=== PATIENT | male | born 1960 | race Caucasian/White ===

== ENCOUNTER 2019-12-03 14:32 | Emergency (ER) | payer OTHER, SELFPAY ==
[2019-12-03 15:13] VITALS: BP 132/88; PULSE 0; RESP 18; TEMP 37.2; BMI 29.0
--- NOTE | 2019-12-03 15:29 | ED_ITS ---
HPI - Asthma General Chief Complaint: Asthma Stated Complaint: asthma Time Seen by Provider: 12/03/19 15:29 Source: patient Mode of arrival: ambulatory Limitations: no limitations History of Present Illness MD complaint: shortness of breath and wheezing Onset (ago): day(s) (3) Severity: moderate Context: none known Associated symptoms: dry cough Asthma History: childhood onset Treatments Prior to Arrival: inhaled bronchodilator Related Data Current Asthma Therapy: inhaled bronchodilator and inhaled steroid Review of Systems Review of Systems: Constitutional : No Fever, No Chills ENT/Mouth : No sore throat, No Rhinorrhea, No Swallowing Difficulty Eyes: No Eye Pain, No Swelling, No Redness Cardiovascular : No Chest Pain, positive SOB, No Orthopnea, no Edema Respiratory : positive Cough, No Sputum, positive Wheezing, positive dyspnea Gastrointestinal : No Nausea, No Vomiting, No Diarrhea, No abdominal Pain, No Hematochezia, No Melena Genitourinary : No Dysuria, No Urinary Frequency, No Hematuria Musculoskeletal : No joint pain, No Myalgias Skin : No Skin Lesions, No rash Neuro : No Weakness, No Numbness, No Dizziness, No Headache Psych : No Anxiety/Panic, No Depression Heme/Lymph: No Bruising, No Lymphadenopathy Endocrine : No Polyuria, No Polydipsia All other systems reviewed and are negative [facility] Past Medical History Medical History Anxiety Asthma Chronic GERD Diabetes HTN (hypertension) Hyperlipidemia Social History Social History (Updated 12/03/19 @ 15:39 by Shelly Michele DO) Smoking Status: Former smoker Use of substances other than those prescribed or required for medical reasons: No Advance Directives: No Advance Directives Information Provided: Yes Physical Exam Vital Signs and I&O and Narrative: Vital Signs and I&O: Vital Signs Temp 99.0 F 12/03/19 15:13 Pulse 83 12/03/19 16:00 Resp 15 12/03/19 16:00 BP 132/88 12/03/19 16:00 Pulse Ox 96 12/03/19 16:00 Intake & Output 12/02/19 12/03/19 12/03/19 18:59 06:59 18:59 Weight 89.358 kg Body Mass Index 29.0 Appearance: Alert. Oriented X3. No acute distress. Eyes: Pupils equal, round and reactive to light. ENT: Pharynx normal. Neck: Normal inspection. Neck supple. CVS: Normal heart rate and rhythm. Pulses normal. Respiratory: No respiratory distress. Breath sounds diminished throughout, faint end exp wheezes Abdomen: Soft and nontender. Skin: Skin warm and dry. Normal skin color. Normal skin turgor. Extremities: No lower extremity edema. No lower extremity edema. Neuro: Oriented X 3. No motor deficit. No sensory deficit. Course Course Course Narrative: signed out to Dr. Melton pending workup MDM - Asthma MDM Narrative Medical decision making narrative: patient with a hx of asthma with c/o wheezing x 3 days, denies fevers, will need labs, EKG, CXR to r/o pneumonia, hour long 10mg neb ordered, IV steroids, dispo per results and findings Discharge Plan Discharge Clinical Impression: Asthma with acute exacerbation Qualifiers: Asthma severity: moderate Asthma persistence: unspecified Qualified Code(s): J45.901 - Unspecified asthma with (acute) exacerbation
--- NOTE | 2019-12-03 15:29 | ECG_ITS ---
Test Reason : SHORTNESS OF BREATH Blood Pressure : / mmHG Vent. Rate : 091 BPM Atrial Rate : 091 BPM P-R Int : 130 ms QRS Dur : 068 ms QT Int : 352 ms P-R-T Axes : 036 013 -10 degrees QTc Int : 432 ms Normal sinus rhythm Normal ECG When compared with ECG of 17-MAR-2017 15:01, Heart rate has decreased Referred By: Shelly Michele Electronically Signed By:MORRIS SANDOVAL MD
--- NOTE | 2019-12-03 15:30 | XR_ITS ---
EXAMINATION: XR CHEST CLINICAL INFORMATION: Dyspnea. COMPARISON: Chest x-ray 07/10/2018 TECHNIQUE: Frontal portable view of the chest was obtained. 3:36 PM FINDINGS: No significant abnormality is noted involving the heart, lungs, mediastinum, bony thorax or soft tissues. IMPRESSION: Unremarkable examination.
[2019-12-03] MEDS: Albuterol Sulfate (0.083%) 2.5 MG/3 ML VIAL.NEB 10 MG INHALE (15:50)
[2019-12-03 16:00] VITALS: BP 132/88; PULSE 83; RESP 15; O2SAT 96
[2019-12-03] MEDS: 0.9 % Sodium Chloride 1,000 ML 999 ML IVCONT (16:08)
[2019-12-03] MEDS: methylPREDNISolone Sod Succ/PF 125 MG/2 ML VIAL 60 MG IVPUSH (16:12)
[2019-12-03 16:16] LABS: MANUAL DIFF FLAG NO
[2019-12-03 16:19] LABS: Basophils Absolute Auto 0.1 X10*3/uL (0.0-0.2); Basophils Percent Auto 0.6 % (0-2); Eosinophils Percent Auto 9.9 % (0-4); Hematocrit 44.4 % (42-52); Imm Gran Abs Auto 0.03 X10*3/uL (0.00-0.03); Imm Gran Pct Auto 0.3 % (0.0-0.4); Lymphocytes Absolute Auto 2.3 X10*3/uL (1.2-4.9); Lymphocytes Percent Auto 22.2 % (20-40); Mean Corpuscular HGB Conc 31.5 g/dl (31.0-36.0); Mean Corpuscular Hemoglobin 29.5 pg (27.0-33.0); Mean Corpuscular Volume 93.5 fL (80-98); Mean Platelet Volume 9.4 fL (9.4-12.4); Monocytes Absolute Auto 0.9 X10*3/uL (0.1-1.2); Monocytes Percent Auto 8.6 % (2-11); Neutrophils Absolute Auto 5.9 X10*3/uL (2.0-8.3); Neutrophils Percent Auto 58.4 % (45-73); Platelet Count 250 X10*3/uL (160-400); Red Blood Count 4.75 X10*6/uL (4.60-5.80); White Blood Count 10.2 X10*3/uL (4.8-10.8)
[2019-12-03 16:35] LABS: Lactic Acid 1.8 mmol/L (0.5-2.0)
[2019-12-03 16:41] LABS: Alanine Aminotransferase 28 U/L (0-40); Albumin Level 4.6 g/dL (3.5-5.0); Alkaline Phosphatase 67 U/L (39-117); Anion Gap 12 (12-20); Aspartate Amino Transferase 23 U/L (5-37); Bilirubin Direct < 0.2 mg/dL (0.0-0.5); Bilirubin Total 0.3 mg/dL (0.0-1.0); Blood Urea Nitrogen 18 mg/dL (9-16); Calcium 9.5 mg/dL (8.4-10.2); Carbon Dioxide 27 mmol/L (22-29); Chloride 103 mmol/L (96-108); Estimated Glomerular Filt Rate > 60; Glucose Random 235 mg/dL (60-115); Lipase 50 U/L (8-78); Magnesium 1.8 mg/dL (1.6-2.6); Potassium 5.2 mmol/l (3.3-5.1); Sodium 137 mmol/L (135-145); Total Protein 8.3 g/dL (6.5-8.0)
[2019-12-03 16:47] LABS: B Type Natriuretic Peptide 19 pg/mL (<100); Troponin-I High Sensitivity < 3.5 ng/L (<3.5-35.0)
--- NOTE | 2019-12-03 16:49 | PC.NURSE ---
PATIENT LINE AND LAB'D AND MEDICATED ADMINISTERED UPON PATIENT ARRIVAL TO ED. MD EVALUATION COMPLETED.
--- NOTE | 2019-12-03 17:02 | ED_ITS ---
HPI - Asthma General Chief Complaint: Asthma Stated Complaint: asthma Time Seen by Provider: 12/03/19 15:29 Source: patient Mode of arrival: ambulatory Limitations: no limitations History of Present Illness Severity: moderate Context: none known Associated symptoms: dry cough Treatments Prior to Arrival: inhaled bronchodilator Related Data Current Asthma Therapy: inhaled bronchodilator and inhaled steroid Previous Rx's Medication Instructions Recorded albuterol sulfate 0.63 mg INHALATION QID PRN #75 ml 12/03/19 albuterol sulfate 1 inh INHALATION Q6H PRN #8.5 g 12/03/19 prednisone 50 mg PO DAILY 5 Days #5 tab 12/03/19 Allergies Allergy/AdvReac Type Severity Reaction Status Date / Time No Known Allergies Allergy Verified 12/03/19 17:25 PENDING SALE TO [facility] Past Medical History Medical History Anxiety Asthma Chronic GERD Diabetes HTN (hypertension) Hyperlipidemia Social History Social History (Updated 12/03/19 @ 15:39 by Shelly Michele DO) Alcohol intake: unknown Smoking Status: Former smoker Use of substances other than those prescribed or required for medical reasons: No Advance Directives: No Advance Directives Information Provided: Yes Physical Exam Vital Signs and I&O and Narrative: Vital Signs and I&O: Vital Signs Temp 99.0 F 12/03/19 15:13 Pulse 83 12/03/19 16:00 Resp 15 12/03/19 16:00 BP 132/88 12/03/19 16:00 Pulse Ox 96 12/03/19 16:00 Intake & Output 12/03/19 12/03/19 12/04/19 06:59 18:59 06:59 Intake Total 1000 / 1000 Balance 1000 / 1000 Weight 89.358 kg Intake: Intake, IV Amoun t 1000 / 1000 0.9 % Sodium C hloride 1,000 ml 1000 / 1000 @ 999 mls/hr I VCONT .Q1H1M RIK Rx#:[id number] Body Mass Index 29.0 Course Course Course Narrative: Report taking a patient seen by me. EKG normal sinus rhythm at [address] T segments normal p.r. segment. Patient feeling better at 1700 at 17:36 patient feeling much improved. Patient received nebulizer and steroids will discharge on same. re-examine of lungs with mild wheezing bilateral MDM - Asthma Lab Data Result diagrams: 12/03/19 15:59 12/03/19 15:58 Labs: Lab Results 12/03/19 12/03/19 12/03/19 Range/Units 15:58 15:58 15:58 WBC (4.8-10.8) X10*3/uL RBC (4.60-5.80) X10*6/uL Hgb (14.0-18.0) g/dl Hct (42-52) % MCV (80-98) fL MCH (27.0-33.0) pg MCHC (31.0-36.0) g/dl RDW (11.0-16.0) % Plt Count (160-400) X10*3/uL MPV (9.4-12.4) fL Immature Gran % (Auto) (0.0-0.4) % Neut % (Auto) (45-73) % Lymph % (Auto) (20-40) % [place] % (Auto) (2-11) % Eos % (Auto) (0-4) % Baso % (Auto) (0-2) % Lymph # (Auto) (1.2-4.9) X10*3/uL [place] # (Auto) (0.1-1.2) X10*3/uL Eos # (Auto) (0.0-0.4) X10*3/uL Baso # (Auto) (0.0-0.2) X10*3/uL Abs Immat Gran (auto) (0.00-0.03) X10*3/uL Absolute Neuts (auto) (2.0-8.3) X10*3/uL Absolute Nucleated RBC (0.0-0.012) X10*3/uL Nucleated RBC % (auto) (0.0-0.2) /100WBC Hold Blue Top Sodium 137 (135-145) mmol/L Potassium 5.2 H (3.3-5.1) mmol/l Chloride 103 (96-108) mmol/L Carbon Dioxide 27 (22-29) mmol/L Anion Gap 12 (12-20) BUN 18 H (9-16) mg/dL Creatinine 1.19 (0.5-1.4) mg/dL Estim Creat Clear Calc 72.0 Estimated GFR > 60 Random Glucose 235 H (60-115) mg/dL Lactic Acid 1.8 (0.5-2.0) mmol/L Calcium 9.5 (8.4-10.2) mg/dL Magnesium 1.8 (1.6-2.6) mg/dL Total Bilirubin 0.3 (0.0-1.0) mg/dL Direct Bilirubin < 0.2 (0.0-0.5) mg/dL AST 23 (5-37) U/L ALT 28 (0-40) U/L Alkaline Phosphatase 67 (39-117) U/L Troponin I High Sens < 3.5 (<3.5-35.0) ng/L B-Natriuretic Peptide 19 (<100) pg/mL Total Protein 8.3 H (6.5-8.0) g/dL Albumin 4.6 (3.5-5.0) g/dL Lipase 50 (8-78) U/L 12/03/19 12/03/19 Range/Units 15:59 15:59 WBC 10.2 (4.8-10.8) X10*3/uL RBC 4.75 (4.60-5.80) X10*6/uL Hgb 14.0 (14.0-18.0) g/dl Hct 44.4 (42-52) % MCV 93.5 (80-98) fL MCH 29.5 (27.0-33.0) pg MCHC 31.5 (31.0-36.0) g/dl RDW 14.0 (11.0-16.0) % Plt Count 250 (160-400) X10*3/uL MPV 9.4 (9.4-12.4) fL Immature Gran % (Auto) 0.3 (0.0-0.4) % Neut % (Auto) 58.4 (45-73) % Lymph % (Auto) 22.2 (20-40) % [place] % (Auto) 8.6 (2-11) % Eos % (Auto) 9.9 H (0-4) % Baso % (Auto) 0.6 (0-2) % Lymph # (Auto) 2.3 (1.2-4.9) X10*3/uL [place] # (Auto) 0.9 (0.1-1.2) X10*3/uL Eos # (Auto) 1.0 H (0.0-0.4) X10*3/uL Baso # (Auto) 0.1 (0.0-0.2) X10*3/uL Abs Immat Gran (auto) 0.03 (0.00-0.03) X10*3/uL Absolute Neuts (auto) 5.9 (2.0-8.3) X10*3/uL Absolute Nucleated RBC 0.000 (0.0-0.012) X10*3/uL Nucleated RBC % (auto) 0.0 (0.0-0.2) /100WBC Hold Blue Top SEE NOTE Sodium (135-145) mmol/L Potassium (3.3-5.1) mmol/l Chloride (96-108) mmol/L Carbon Dioxide (22-29) mmol/L Anion Gap (12-20) BUN (9-16) mg/dL Creatinine (0.5-1.4) mg/dL Estim Creat Clear Calc Estimated GFR Random Glucose (60-115) mg/dL Lactic Acid (0.5-2.0) mmol/L Calcium (8.4-10.2) mg/dL Magnesium (1.6-2.6) mg/dL Total Bilirubin (0.0-1.0) mg/dL Direct Bilirubin (0.0-0.5) mg/dL AST (5-37) U/L ALT (0-40) U/L Alkaline Phosphatase (39-117) U/L Troponin I High Sens (<3.5-35.0) ng/L B-Natriuretic Peptide (<100) pg/mL Total Protein (6.5-8.0) g/dL Albumin (3.5-5.0) g/dL Lipase (8-78) U/L Discharge Plan Discharge Clinical Impression: Asthma with acute exacerbation Qualifiers: Asthma severity: moderate Asthma persistence: unspecified Qualified Code(s): J45.901 - Unspecified asthma with (acute) exacerbation Patient Disposition: Home, Self-Care Instructions: Asthma (ED) Additional Instructions: Thank you for visiting the emergency department today. If your symptoms worsen or do not resolve completely please return to the emergency department immediately or call 911. if he have any questions please call your primary care physician Prescriptions: New albuterol sulfate 0.63 mg/3 mL solution for nebulization 0.63 mg inhalation QID PRN (Reason: shortness of breath or wheezing) Qty: 75 RF: 0 prednisone 50 mg tablet 50 mg PO DAILY 5 Days Qty: 5 RF: 0 albuterol sulfate 90 mcg/actuation HFA aerosol inhaler 1 inh inhalation Q6H PRN (Reason: shortness of breath or wheezing) Qty: 8.5 RF: 0 Referrals: Danis Laurent MD [Primary Care Provider] - 2 days Interventions: ED Discharge Assessment Last Done: 12/03/19 17:46 Discharge Date/Time: 12/03/19 17:55
--- NOTE | 2019-12-03 17:43 | PC.NURSE ---
pt ambulated with a steady gate Oygen stat never dropped below 93.
== END 2019-12-03 17:55 | disposition home or self-care (01) ==
PROVIDERS: Emergency Medicine; Emergency Provider Emergency Medicine; PCP Internal Medicine
DX: J45.41 Moderate persistent asthma with (acute) exacerbation (principal); E11.9 Type 2 diabetes mellitus without complications; I11.0 Hypertensive heart disease with heart failure; Z79.899 Other long term (current) drug therapy
CPT/HCPCS: 36415; 71045; 80048; 80076; 83605; 83690; 83735; 83880; 84484; 85025; 87040; 93005; 96361; 96374; 99284; J2930

== ENCOUNTER 2019-12-11 10:56 | Day surgery (SDC) | payer OTHER, SELFPAY ==
[2019-12-04 14:01] VITALS: BMI 30.5
--- NOTE | 2019-12-09 09:47 | HO.ANESPROP2 ---
Documented by User: Karie Dossney 12/09/19 09:55 HPI - Anesthesia Eval Consult details Narrative: 59yo M for Colonoscopy *Being worked up by speech therapy for dysphagia. Basic swallowing precautions. [facility] Past Medical History Medical History Anxiety Asthma Chronic GERD Depression Diabetes HTN (hypertension) Hyperlipidemia Surgical History Surgical History Hx of colonoscopy Hx of esophagogastroduodenoscopy Hx of hernia repair Hx of repair of rotator cuff Social History Social History Alcohol intake: unknown Smoking Status: Former smoker Years Smoked: 20 yrs ( quit 8 years ago) Smoked in Last 30 Days: No Second Hand Smoke Exposure: Yes Use of substances other than those prescribed or required for medical reasons: No Advance Directives Information Provided: No Meds Allergies Allergy/AdvReac Type Severity Reaction Status Date / Time No Known Allergies Allergy Verified 12/03/19 17:25 Home Medications Medication Instructions Recorded Confirmed Type aspirin 81 mg PO DAILY 12/04/19 12/04/19 History fluticasone propion-salmeterol 1 inh INHALATION BID 12/04/19 12/04/19 History [Advair Diskus] glipizide 10 mg PO DAILY 12/04/19 12/04/19 History loratadine 10 mg PO DAILY 12/04/19 12/04/19 History lorazepam 0.5 mg PO QID PRN 12/04/19 12/04/19 History metformin 1,000 mg PO BID 12/04/19 12/04/19 History metoclopramide HCl [Reglan] 10 mg PO TID 12/04/19 12/04/19 History montelukast 10 mg PO BEDTIME 12/04/19 12/04/19 History pioglitazone 30 mg PO DAILY 12/04/19 12/04/19 History sertraline 100 mg PO DAILY 12/04/19 12/04/19 History simvastatin 20 mg PO DAILY 12/04/19 12/04/19 History Exam Exam Date and Time: December 09, 2019 0947 Height,Weight and Vital Signs: Height 5 ft 9 in Weight 93.894 kg Pertinent Lab Results Pertinent Lab Results: Laboratory Tests 12/03/19 12/03/19 15:58 15:59 WBC 10.2 Hgb 14.0 Hct 44.4 Plt Count 250 Sodium 137 Potassium 5.2 H Chloride 103 Carbon Dioxide 27 BUN 18 H Creatinine 1.19 Documented by User: Molina Abreu MD 12/11/19 11:37 [facility] Past Medical History Medical History Anxiety Asthma Chronic GERD Depression Diabetes HTN (hypertension) Hyperlipidemia Surgical History Surgical History Hx of colonoscopy Hx of esophagogastroduodenoscopy Hx of hernia repair Hx of repair of rotator cuff Social History Social History Alcohol intake: unknown Smoking Status: Former smoker Years Smoked: 20 yrs ( quit 8 years ago) Smoked in Last 30 Days: No Second Hand Smoke Exposure: Yes Use of substances other than those prescribed or required for medical reasons: No Advance Directives Information Provided: No Meds Allergies Allergy/AdvReac Type Severity Reaction Status Date / Time No Known Allergies Allergy Verified 12/03/19 17:25 Home Medications Medication Instructions Recorded Confirmed Type aspirin 81 mg PO DAILY 12/04/19 12/04/19 History fluticasone propion-salmeterol 1 inh INHALATION BID 12/04/19 12/04/19 History [Advair Diskus] glipizide 10 mg PO DAILY 12/04/19 12/04/19 History loratadine 10 mg PO DAILY 12/04/19 12/04/19 History lorazepam 0.5 mg PO QID PRN 12/04/19 12/04/19 History metformin 1,000 mg PO BID 12/04/19 12/04/19 History metoclopramide HCl [Reglan] 10 mg PO TID 12/04/19 12/04/19 History montelukast 10 mg PO BEDTIME 12/04/19 12/04/19 History pioglitazone 30 mg PO DAILY 12/04/19 12/04/19 History sertraline 100 mg PO DAILY 12/04/19 12/04/19 History simvastatin 20 mg PO DAILY 12/04/19 12/04/19 History Exam Airway Mallampati Class: II TM Dist: >3cm Neck ROM: Full Denture: Upper Loose/Missing/Broken Teeth: No Heart: rrr, tachy Lungs: nl Other: ao Assessment and Plan Assessment Anesthesia Assessment: Anesthesia Plan Discussed and Chart Reviewed Final Anesthetic Review NPO: Yes ASA Class: III Final Preanesthetic Review: No Changes in Pt Med Stat, Meds/Allgs Chart Reviewed, Consent Obtained/Reviewed and Anes Risks/Benef Reviewed Patient Risk: Intermediate Procedure Risk: Low Anesthetic Plan Anesthetic Plan: MAC: Disposition: Standard PACU
[2019-12-11 11:22] VITALS: BP 113/79; PULSE 106; RESP 16; TEMP 36.6; O2SAT 97
[2019-12-11] MEDS: Lactated Ringers 1,000 ML 100 ML IVCONT (11:25)
[2019-12-11 11:27] VITALS: BMI 29.0
[2019-12-11 11:45] LABS: Glucose, Whole Blood 192 mg/dL (60-115)
--- NOTE | 2019-12-11 11:51 | MHC.SHP ---
Pre-Procedural Eval Section A The patient is an INPATIENT: No The History & Physical has been completed within 30 days and I have reviewed it.: No Section B Chief Complaint: Tubular Adenoma Details of Present Illness: COLON CANCER SCREENING; HX TUBULAR ADENOMA DIABETES, GERD, GASTROPARESIS,ASTHMA Relevant Family History (Specify if Yes): No Relevant Social History: None Present Medications: see Short Stay Collaborative assessment Medical History: Significant History (RECENT ER VISIT DUE TO EXACERBATION OF ASTHMA.) History of Previous Operations: Relevant previous surgery/procedure and date(s) (ARMANDO, POOR PREP, TUBULAR ADENOMA--6 MONTH REDO) Allergies: Allergies Allergy/AdvReac Type Severity Reaction Status Date / Time No Known Allergies Allergy Verified 12/03/19 17:25 Review of Systems Sugical H&P ROS: Negative: Constitution and Cardiovascular and Yes, Specify: Respiratory (RECENT FLARE), Gastrointestinal (BREAK THROUGH GERD SX--DURING THE DAY ? 2ND TO GASTROPARESIS) and Endocrine (DIABETES--POC-192) Exam Surgical H&P Exam: Normal: Heart, Normal: Lungs and Normal: Extremities and Significant Findings: Abdomen (CENTRAL OBESITY) Plan Diagnosis/Plan: Unchanged Patient has been examined and remains a candidate for the planned procedure--YES
[2019-12-11 12:44] VITALS: BP 116/86; PULSE 95; RESP 16; TEMP 36.1; O2SAT 96
[2019-12-11 12:56] VITALS: RESP 18; O2SAT 98
[2019-12-11 12:57] VITALS: BP 119/89; PULSE 93; RESP 20; O2SAT 93
[2019-12-11 13:12] VITALS: BP 118/88; PULSE 94; RESP 20; TEMP 36.5; O2SAT 96
--- NOTE | 2019-12-11 13:35 | HO.POSTANES ---
Post Anesthesia Evaluation Post Anesthesia Evaluation Vital Signs: Vital Signs Temp Pulse Resp BP Pulse Ox 12/11/19 13:12 97.7 F 94 20 118/88 96 12/11/19 12:57 93 20 119/89 93 12/11/19 12:56 18 98 12/11/19 12:44 97 F 95 16 116/86 96 12/11/19 11:22 97.8 F 106 H 16 113/79 97 Anesthesia: Monitored Mental Status: Awake Pain Control: Satisfactory Nausea/Vomiting: None Hydration: Adequate Anesthesia-Related Issues: No Anes. Related Issues
--- NOTE | 2019-12-12 07:55 | OP_ITS ---
SURGEON: Ysabel Ramos MD PREOPERATIVE DIAGNOSIS: History of tubular adenomas. POSTOPERATIVE DIAGNOSIS: History of tubular adenomas. PROCEDURE PERFORMED: Colonoscopy with excisional polypectomy. ESTIMATED BLOOD LOSS: Minimal blood loss. COMPLICATIONS: No complications. ANESTHESIA: Monitored. ANESTHESIOLOGIST: Beth Torres CRNA.Beth Torres CRNA. ASSISTANTS: No assistant in nursing. SPECIMENS: Specimens removed, ascending colon polyp. COMMUTER TRAIN OPERATOR: Dr. Ramos. FINDINGS: Digital rectal exam revealed prostate to be difficult to feel. Video colonoscope was introduced without difficulty. It was navigated into the rectosigmoid area slowly up through sigmoid, descending, transverse, ascending colon down into the cecum. Appendiceal orifice was seen. Ileocecal valve was well seen. Prep was slightly wet with residual bilious fluid, requiring flushing and suctioning sporadically through the colon, did identify a diminutive polyp in the ascending colon that was removed excisionally with the cold biopsy forceps. Continued withdrawal showed no additional lesions. Anorectal verge was clear. PLAN AND CURRENT RECOMMENDATIONS: Continued to be with a history of tubular adenoma 5-year asymptomatic screening. GRAFT OR IMPLANTS: No grafts or implants. CONDITION: Postprocedure, stable. Ysabel Ramos MD MEN/MODL / [id number]
== END 2019-12-11 13:49 | disposition home or self-care (01) ==
PROVIDERS: Internal Medicine Gastroenterology; PCP Internal Medicine; Visit Provider Internal Medicine
PROC: 0DJD8ZZ Inspection of Lower Intestinal Tract, Via Natural or Artificial Opening Endoscopic (ICD-10-PCS; CPT 45378; principal; 2019-12-11 12:00)
DX: Z12.11 Encounter for screening for malignant neoplasm of colon (principal); Z86.010 Personal history of colon polyps; D12.2 Benign neoplasm of ascending colon; K21.9 Gastro-esophageal reflux disease without esophagitis; I10 Essential (primary) hypertension; E11.9 Type 2 diabetes mellitus without complications; K31.84 Gastroparesis; R13.10 Dysphagia, unspecified; J45.909 Unspecified asthma, uncomplicated; Z79.84 Long term (current) use of oral hypoglycemic drugs; Z79.82 Long term (current) use of aspirin; Z79.899 Other long term (current) drug therapy; Z87.891 Personal history of nicotine dependence
CPT/HCPCS: 45380; 82947; 88305; J1610; J2250

== ENCOUNTER → 2019-12-24 12:45 | Outpatient (BNVA) | payer OTHER, SELFPAY | PROVIDERS: PCP Internal Medicine; Referring Provider Internal Medicine; Visit Provider Nurse Practitioner | DX: K31.84 Gastroparesis (principal); K21.9 Gastro-esophageal reflux disease without esophagitis; R14.0 Abdominal distension (gaseous); D12.6 Benign neoplasm of colon, unspecified; K58.1 Irritable bowel syndrome with constipation; R13.10 Dysphagia, unspecified | CPT/HCPCS: 99212 ==

== ENCOUNTER → 2020-02-04 13:08 | Outpatient (BNVA) | payer OTHER, SELFPAY | PROVIDERS: PCP Internal Medicine; Visit Provider Nurse Practitioner | DX: K31.84 Gastroparesis (principal); K58.1 Irritable bowel syndrome with constipation; D12.6 Benign neoplasm of colon, unspecified; R14.0 Abdominal distension (gaseous); R13.10 Dysphagia, unspecified; K21.9 Gastro-esophageal reflux disease without esophagitis; Z87.891 Personal history of nicotine dependence | CPT/HCPCS: Q3014 ==

== ENCOUNTER → 2020-03-08 08:58 | Outpatient (REF) | payer OTHER, SELFPAY ==
--- NOTE | 2020-03-08 | NM_ITS ---
Lexiscan Myocardial perfusion study Indication: Chest pain, assess for coronary disease and ischemia Technique: The patient was brought in for a Lexiscan perfusion study on 03/08/2020 and was injected 0.4 mg of Lexiscan intravenously. Within a minute of this injection 35 mCi of sestamibi was given intravenously. Images were obtained using the SPECT gamma camera interlaced with the gating device. Images were obtained in supine position. Resting perfusion study was performed on 03/09/2020. Patient was administered 35 mCi of sestamibi intravenously at rest. Images were then obtained in supine position. Total DLP 79mGy-cm. Images were processed with the software and compared side to side in short axis, horizontal long axis and vertical long axis views. Findings: Raw acquisition was reviewed. The stress perfusion study showed no significant perfusion abnormality. Both uncorrected as well as CT attenuation corrected images were reviewed. The gated study shows normal LV systolic function with calculated LVEF of 52%. LV cavity is normal in size. The gated study shows normal wall thickening and contraction of segments. Resting study shows no significant perfusion abnormality. Gating at rest reveals normal wall motion with ejection fraction at 61%. The findings are consistent with no reversible or fixed perfusion abnormality. NM/NM alan perf SPECT rest & str Impression: 1. Myocardial perfusion imaging study shows normal myocardial perfusion. No evidence of any ischemia or infarction. 2. Gated LVEF is 52% during stress and 61% during rest. 3. Transient ischemic dilatation not present. EKG component of the test reported separately.
--- NOTE | 2020-03-08 09:54 | CA_ITS ---
Acquisition Time: 2020-03-08 09:08:55 Total Exercise Time: 00:02:00 Test Indications: Dyspnea Medications: SEE H Protocol: LEXISCAN Max HR: 105 BPM 66% of Pred: 159 BPM Max BP: 124/062 mmHG Max Work Load: 1.0 METS Pharmacological stress test using Lexiscan, while sitting and kicking his feet. Pt tolerated well. Denies any anginal sx. EKG without any arrhytmias, non-diagnostic for ischemia. Nuclear images to follow. Normotensive response to exercise. Test reviewed with Dr. Martinez. Referred By: Ko Ocampo Overread By: Carolee De Anda
== END ==
LOC: HO.CARD 08:58
PROVIDERS: Visit Provider Internal Medicine Cardiovascular Disease
DX: R07.9 Chest pain, unspecified (principal); R06.09 Other forms of dyspnea
CPT/HCPCS: 78452; 93017; A9500; J0280; J2785

== ENCOUNTER → 2020-04-29 13:19 | Outpatient (BNVA) | payer OTHER, SELFPAY | PROVIDERS: Visit Provider Orthopaedic Surgery | DX: M75.51 Bursitis of right shoulder (principal); M75.52 Bursitis of left shoulder | CPT/HCPCS: 20610; 99212; J1100 ==

== ENCOUNTER 2020-06-25 10:42 | Emergency (ER) | payer OTHER, SELFPAY ==
--- NOTE | ~2020-06-25 | XR_ITS ---
EXAMINATION: XR CHEST CLINICAL INFORMATION: Cough. COMPARISON: 12/03/2019 TECHNIQUE: Frontal view of the chest was obtained. FINDINGS: Cardiac mediastinal silhouette is stable. There is a hazy airspace opacity in the medial right lung base, concerning for infiltrate. No effusion, edema or pneumothorax. Evidence of surgery to bilateral shoulders. XR/XR chest 1V IMPRESSION: Airspace opacity in the right lung base, concerning for pneumonia. Recommendation is for a follow-up chest series to be obtained following treatment and/or resolution of symptoms to assure resolution of this appearance.
[2020-06-25 11:59] VITALS: BP 120/83; PULSE 99; RESP 18; TEMP 37.3; O2SAT 96; BMI 29.5
[2020-06-25 13:52] LABS: COVID-19 Test Negative (Negative); IDNOW Serial# 9DD0AD1C
--- NOTE | 2020-06-25 14:05 | ED.URI ---
HPI - URI/Sore Throat General Chief Complaint: Upper Respiratory Symptoms Stated Complaint: CHEST TIGHTNESS COUGH Time Seen by Provider: 06/25/20 12:47 History of Present Illness HPI Narrative: Patient complains of cough productive sputum for 3 days with no fever no chills no difficulty breathing no chest pain no nausea or vomiting no shortness of breath no leg swelling no calf pain Related Data Home Medications Medication Instructions Recorded Confirmed aspirin 81 mg PO DAILY 12/04/19 12/11/19 fluticasone propion-salmeterol 1 inh INHALATION BID 12/04/19 12/04/19 [Advair Diskus] glipizide 10 mg PO DAILY 12/04/19 12/04/19 loratadine 10 mg PO DAILY 12/04/19 12/04/19 lorazepam 0.5 mg PO QID PRN 12/04/19 12/04/19 metformin 1,000 mg PO BID 12/04/19 12/04/19 montelukast 10 mg PO BEDTIME 12/04/19 12/04/19 pioglitazone 30 mg PO DAILY 12/04/19 12/04/19 sertraline 100 mg PO DAILY 12/04/19 12/04/19 simvastatin 20 mg PO DAILY 12/04/19 12/04/19 insulin pork QPM 12/11/19 [id number] 1 cap PO .Q.i.d. a.c. cap 12/23/19 12/23/19 3,000-9,500-15,000 unit capsule,delayed releas Previous Rx's Medication Instructions Recorded albuterol sulfate 0.63 mg INHALATION QID PRN #75 ml 12/03/19 albuterol sulfate 1 inh INHALATION Q6H PRN #8.5 g 12/03/19 metoclopramide HCl 10 mg tablet 10 mg PO TID #90 tab 12/12/19 simethicone 180 mg capsule 180 mg PO TID PRN #90 cap 12/24/19 pantoprazole 40 mg tablet,delayed 40 mg PO QAM #30 tab 03/08/20 release sennosides 8.6 mg tablet 17.2 mg PO BEDTIME #60 tab 03/08/20 benzonatate [Tessalon Perles] 100 mg PO TID PRN #20 cap 06/25/20 doxycycline hyclate 100 mg PO BID 7 Days #14 cap 06/25/20 Allergies Allergy/AdvReac Type Severity Reaction Status Date / Time No Known Allergies Allergy Verified 06/25/20 11:59 Review of Systems Review of Systems: Positive for cough productive of sputum Negatives are no fever no chills no dizziness no weakness no fainting no chest pain no shortness of breath no abdominal pain no nausea or vomiting no rash PMFSH Past Medical History Source: nursing notes reviewed Medical History Anxiety Asthma Chronic GERD Depression Diabetes HTN (hypertension) Hyperlipidemia Surgical History Hx of colonoscopy Hx of esophagogastroduodenoscopy Hx of hernia repair Hx of repair of rotator cuff Family History Family History Father No problems noted. Mother Hx of breast cancer Social History Social History Alcohol intake: current Alcohol intake frequency: does not drink Smoking Status: Never smoker Years Smoked: 20 yrs ( quit 8 years ago) Second Hand Smoke Exposure: Yes Advance Directives: No Advance Directives Information Provided: No Physical Exam Vital Signs: Vital Signs: Last Vital Signs Temp 99.2 F 06/25/20 11:59 Pulse 99 06/25/20 11:59 Resp 18 06/25/20 11:59 BP 120/83 06/25/20 11:59 Pulse Ox 96 06/25/20 11:59 Body Mass Index 29.5 General appearance is no acute distress, com cooperative A&O x3 The pharynx was clear and well hydrated The neck was supple The chest was clear to auscultation bilateral with full symmetric equal breath sounds The heart rate and rhythm regular no murmur The abdomen soft nontender The extremities no calf tenderness no edema no rash Neuro no focal deficit Course Course Course Narrative: COVID test was negative and chest x-ray showed a possible infiltrate and well-appearing patient was discharged treated for possible pneumonia MDM - URI/Sore Throat Lab Data Labs: Lab Results 06/25/20 Range/Units 13:12 COVID-19 (JOSHUA) Negative (Negative) COVID-19 Clin Com See Note Discharge Plan Discharge Clinical Impression: Bronchitis Patient Disposition: Home, Self-Care Additional Instructions: COVID testing was negative Chest x-ray showed a question of an early pneumonia so we are starting antibiotics Return any time for difficulty breathing, high fever, any worse condition or any concerns Follow with primary doctor next week if not better for recheck Your x-ray showed a possible infiltrate so in a month you should have a repeat x-ray to make sure it has cleared Prescriptions: New doxycycline hyclate 100 mg capsule 100 mg PO BID 7 Days Qty: 14 RF: 0 benzonatate [Tessalon Perles] 100 mg capsule 100 mg PO TID PRN (Reason: cough) Qty: 20 RF: 0 No Action metoclopramide HCl [Reglan] 10 mg tablet 10 mg PO TID Qty: 90 RF: 1 sennosides [senna] 8.6 mg tablet 17.2 mg PO BEDTIME Qty: 60 RF: 4 pantoprazole 40 mg tablet,delayed release (DR/EC) 40 mg PO QAM Qty: 30 RF: 4 fluticasone propion-salmeterol [Advair Diskus] 250-50 mcg/dose Blister With Device 1 inh INHALATION BID RF: 0 glipizide 10 mg Tablet 10 mg PO DAILY RF: 0 sertraline 100 mg Tablet 100 mg PO DAILY RF: 0 lorazepam 0.5 mg Tablet 0.5 mg PO QID PRN (Reason: Anxiety) RF: 0 simvastatin 20 mg Tablet 20 mg PO DAILY RF: 0 metformin 1,000 mg Tablet 1,000 mg PO BID RF: 0 montelukast 10 mg Tablet 10 mg PO BEDTIME RF: 0 aspirin 81 mg Tablet 81 mg PO DAILY RF: 0 pioglitazone 30 mg Tablet 30 mg PO DAILY RF: 0 loratadine 10 mg Tablet 10 mg PO DAILY RF: 0 insulin pork 36 units auto-injector QPM RF: 0 albuterol sulfate 0.63 mg/3 mL solution for nebulization 0.63 mg inhalation QID PRN (Reason: shortness of breath or wheezing) Qty: 75 RF: 0 albuterol sulfate 90 mcg/actuation HFA aerosol inhaler 1 inh inhalation Q6H PRN (Reason: shortness of breath or wheezing) Qty: 8.5 RF: 0 Creon 3,000-9,500- 15,000 unit capsule,delayed release(DR/EC) 1 cap PO .Q.i.d. a.c. RF: 0 simethicone [Gas Relief (simethicone)] 180 mg capsule 180 mg PO TID PRN (Reason: abdominal distention) Qty: 90 RF: 6 Interventions: ED Discharge Assessment Last Done: 06/25/20 14:14 Discharge Date/Time: 06/25/20 14:15
== END 2020-06-25 14:15 | disposition home or self-care (01) ==
PROVIDERS: Physician Assistant Medical; Emergency Provider Emergency Medicine; PCP Internal Medicine
DX: J40 Bronchitis, not specified as acute or chronic (principal); Z20.822 Contact with and (suspected) exposure to COVID-19; I10 Essential (primary) hypertension; E11.9 Type 2 diabetes mellitus without complications; E78.5 Hyperlipidemia, unspecified; Z79.84 Long term (current) use of oral hypoglycemic drugs; Z79.899 Other long term (current) drug therapy; Z79.02 Long term (current) use of antithrombotics/antiplatelets; Z79.82 Long term (current) use of aspirin
CPT/HCPCS: 36415; 71045; 87635; 99283

== ENCOUNTER → 2020-07-06 07:48 | Outpatient (BNVA) | payer OTHER, SELFPAY | PROVIDERS: PCP Internal Medicine; Visit Provider Nurse Practitioner Gerontology | DX: E11.65 Type 2 diabetes mellitus with hyperglycemia (principal); E78.00 Pure hypercholesterolemia, unspecified; B35.3 Tinea pedis | CPT/HCPCS: 82947; 99212 ==

== ENCOUNTER → 2020-08-11 10:42 | Outpatient (BNVA) | payer OTHER, SELFPAY | PROVIDERS: PCP Internal Medicine; Visit Provider Dietitian, Registered | DX: E11.65 Type 2 diabetes mellitus with hyperglycemia (principal) | CPT/HCPCS: 97802 ==

== ENCOUNTER 2020-08-18 12:48 | Emergency (ER) | payer OTHER, SELFPAY ==
--- NOTE | ~2020-08-18 | XR_ITS ---
EXAMINATION: XR CHEST CLINICAL INFORMATION: Productive cough. COMPARISON: None TECHNIQUE: 2 views of the chest were obtained. FINDINGS: No significant abnormality is noted involving the heart, lungs, mediastinum, bony thorax or soft tissues. XR/XR chest 2V IMPRESSION: Unremarkable chest examination.
--- NOTE | 2020-08-18 12:54 | PC.NURSE ---
awaiting [employer] sales consultant services to triage patient
[2020-08-18 12:58] VITALS: BP 108/77; PULSE 102; RESP 18; TEMP 36.8; O2SAT 95; BMI 29.2
[2020-08-18 15:48] VITALS: BP 112/81; PULSE 98; RESP 18; TEMP 36.2; O2SAT 97
[2020-08-18 16:23] LABS: Strep A Nucleic Acid Negative (Negative)
[2020-08-18 16:24] LABS: COVID-19 Test Negative (Negative); IDNOW Serial# 9DD0AD1C
--- NOTE | 2020-08-18 16:41 | ED_ITS ---
HPI - URI/Sore Throat General Chief Complaint: Upper Respiratory Symptoms Stated Complaint: bronchitis Time Seen by Provider: 08/18/20 15:39 Source: patient Mode of arrival: ambulatory History of Present Illness HPI Narrative: 60-year-old male with a past medical history of anxiety, asthma, GERD, depression, diabetes, hypertension, hyperlipidemia, presenting to the ED complaining productive cough, sore throat, rhinorrhea x1 week. Denies fever, chills, SOB, CP, LE edema, calf pain, recent travel, sick contacts, COVID-19 exposure, abdominal pain MD elicited complaint: cough Related Data Home Medications Medication Instructions Recorded Confirmed aspirin 81 mg PO DAILY 12/04/19 07/06/20 fluticasone propion-salmeterol 1 inh INHALATION BID 12/04/19 07/06/20 [Advair Diskus] loratadine 10 mg PO DAILY 12/04/19 07/06/20 lorazepam 0.5 mg PO QID PRN 12/04/19 07/06/20 metformin 1,000 mg PO BID 12/04/19 07/06/20 montelukast 10 mg PO BEDTIME 12/04/19 07/06/20 sertraline 100 mg PO DAILY 12/04/19 07/06/20 insulin pork QPM 12/11/19 07/06/20 eihlbd-[id number] 1 cap PO .Q.i.d. a.c. cap 12/23/19 07/06/20 3,000-9,500-15,000 unit capsule,delayed releas atorvastatin 20 mg tablet 20 mg PO DAILY 07/06/20 07/06/20 gabapentin 300 mg capsule 300 mg PO cap 07/06/20 07/06/20 insulin glargine 100 unit/mL (3 36 unit SUBCUT QPM 07/06/20 07/06/20 mL) subcutaneous pen pioglitazone 30 mg tablet 30 mg PO DAILY tab 07/06/20 07/06/20 Previous Rx's Medication Instructions Recorded albuterol sulfate 0.63 mg INHALATION QID PRN #75 ml 12/03/19 albuterol sulfate 1 inh INHALATION Q6H PRN #8.5 g 12/03/19 metoclopramide HCl 10 mg tablet 10 mg PO TID #90 tab 12/12/19 benzonatate [Tessalon Perles] 100 mg PO TID PRN #20 cap 06/25/20 doxycycline hyclate 100 mg PO BID 7 Days #14 cap 06/25/20 terbinafine HCl 1 % topical cream 1 appl TOPICAL BID #15 g 07/06/20 empagliflozin 25 mg tablet 25 mg PO QAM #30 tab 07/09/20 pantoprazole 40 mg tablet,delayed 40 mg PO QAM #30 tab 08/02/20 release sennosides 8.6 mg tablet 17.2 mg PO BEDTIME #60 tab 08/02/20 simethicone 180 mg capsule 180 mg PO QID PRN #90 cap 08/02/20 albuterol sulfate 2 puff INHALATION Q4-6H PRN #6.7 g 08/18/20 azithromycin See Rx Instructions .ROUTE 08/18/20 .COMPLEX #6 tab benzonatate [Tessalon Perles] 100 mg PO TID PRN #14 cap 08/18/20 Allergies Allergy/AdvReac Type Severity Reaction Status Date / Time No Known Allergies Allergy Verified 08/18/20 12:58 Review of Systems Review of Systems: Constitutional: No Fever, No Chills ENT/Mouth: No Ear Pain, + Nasal Congestion, + sore throat, + Rhinorrhea, No Swallowing Difficulty Cardiovascular: No Chest Pain, No SOB Respiratory: + Cough, + Sputum, No Wheezing Gastrointestinal: No Nausea, No Vomiting, No Constipation, No Abdominal pain Musculoskeletal: No joint pain, No Myalgias, No Joint Swelling Skin: No Skin Lesions, No rash Neuro: No Weakness Yes all other systems are reviewed and are negative PMFSH Past Medical History Attestation statement: The following information was validated with the patient. Medical History (Updated 08/18/20 @ 16:45 by SAHRA Johnson) Anxiety Asthma Bronchitis Chronic GERD Depression Diabetes HTN (hypertension) Hyperlipidemia Surgical History Hx of colonoscopy Hx of esophagogastroduodenoscopy Hx of hernia repair Hx of repair of rotator cuff Family History Family History (Updated 07/06/20 @ 08:10 by RAFAT Richard) Father No problems noted. Mother Hx of breast cancer Sister Diabetes Maternal Aunt Heart problem Social History Social History (Updated 07/06/20 @ 08:10 by RAFAT Richard) Household Members: Spouse Alcohol intake: unknown Years Smoked: 20 yrs ( quit 8 years ago) Second Hand Smoke Exposure: Yes Advance Directives: Yes Advance Directives Information Provided: Yes Advance Directives on File: No Physical Exam Vital Signs: Vital Signs: Last Vital Signs Temp 97.2 F 08/18/20 15:48 Pulse 98 08/18/20 15:48 Resp 18 08/18/20 15:48 BP 112/81 08/18/20 15:48 Pulse Ox 97 08/18/20 15:48 Body Mass Index 29.2 Const: General: cooperative, healthy appearing and no acute distress Orientation/consciousness: patient oriented x3 Limitations: no limitations HENMT: Head: Yes normal to inspection Ears: hearing grossly normal bilaterally General nose exam: Normal external nose present Face and sinus: Yes normal facial exam Mouth: Normal oral and palatal mucosa present Throat: Yes posterior oropharynx normal, Yes tonsils normal, Yes uvula midline, No peritonsillar mass, No uvula laterally displaced and No uvular edema Eyes: General: appearance normal, both eyes and all related structures EOM: EOMs intact bilaterally Neck: Neck: Yes normal visual inspection Resp: Effort & Inspection: normal respiratory effort Auscultation: clear to auscultation bilaterally, no crackles, no rhonchi and no wheezes Cardio: Rate: regular rate Heart sounds: S1 normal heart sound present and S2 normal heart sound present GI: Inspection: Yes normal to inspection Skin: Rashes: no rashes Wounds: no wounds Neuro: General: patient oriented x3 Gait exam (Neuro): Normal gait present Extrem: General: Yes normal to inspection and Yes no pedal edema Course Course Course Narrative: XR chest 2V IMPRESSION: Unremarkable chest examination. Negative COVID-19 and rapid strep MDM - URI/Sore Throat MDM Narrative Medical decision making narrative: 60-year-old male with a past medical history of anxiety, asthma, GERD, depression, diabetes, hypertension, hyperlipidemia, presenting to the ED complaining productive cough, sore throat, rhinorrhea x1 week. On exam VSS, NAD, well appearing, nontoxic, lungs CTA, oropharynx WNL. Concern for viral syndrome/COVID-19 vs bronchitis vs pneumonia. Low concern for PE/ACS Plan: CXR, COVID-19 testing, rapid strep Medical Records Attestation: I reviewed the patient's medical records. Lab Data Labs: Lab Results 08/18/20 08/18/20 Range/Units 16:02 16:02 COVID-19 (JOSHUA) Negative (Negative) COVID-19 Clin Com See Note S. pyogenes GrpA SINAN Negative (Negative) Discharge Plan Discharge Clinical Impression: Viral infection, Bronchitis Patient Disposition: Home, Self-Care Instructions: Acute Bronchitis (ED), Viral Syndrome (ED) Additional Instructions: Your x-ray was unremarkable. He tested negative for COVID-19 and strep throat Azithromycin is an antibiotic, take as prescribed Tessalon Perles for cough, and use albuterol inhaler at home as needed for shortness of breath/wheezing Follow- up with her primary care doctor If her symptoms persist or worsen, you have fever, or constant worsening shortness breath or chest pain please return to the ED Aggarwal radiograf?a no tuvo nada especial. Gage negativo para COVID-19 y faringitis estreptoc?cica Azitromicina es un antibi?bhumi, tome Tessalon Perles seg?n lo prescrito para la tos y use un inhalador de albuterol en casa seg?n sea necesario para la falta de aliento / sibilancias Seguimiento con aggarwal m?dico de atenci?n primaria Si betty s?ntomas persisten o empeora, tiene fiebre o dificultad para respirar o dolor en el pecho que empeora constantemente, por favor regrese al servicio de urgencias Prescriptions: New azithromycin 250 mg tablet See Rx Instructions .ROUTE .COMPLEX Qty: 6 RF: 0 benzonatate [Tessalon Perles] 100 mg capsule 100 mg PO TID PRN (Reason: cough) Qty: 14 RF: 0 albuterol sulfate 90 mcg/actuation HFA aerosol inhaler 2 puff inhalation Q4-6H PRN (Reason: shortness of breath or wheezing) Qty: 6.7 RF: 0 No Action metoclopramide HCl [Reglan] 10 mg tablet 10 mg PO TID Qty: 90 RF: 1 Jardiance 25 mg tablet 25 mg PO QAM Qty: 30 RF: 3 simethicone 180 mg capsule 180 mg PO QID PRN (Reason: abdominal distention) Qty: 90 RF: 1 pantoprazole 40 mg tablet,delayed release (DR/EC) 40 mg PO QAM Qty: 30 RF: 1 sennosides [senna] 8.6 mg tablet 17.2 mg PO BEDTIME Qty: 60 RF: 1 fluticasone propion-salmeterol [Advair Diskus] 250-50 mcg/dose Blister With Device 1 inh INHALATION BID RF: 0 sertraline 100 mg Tablet 100 mg PO DAILY RF: 0 lorazepam 0.5 mg Tablet 0.5 mg PO QID PRN (Reason: Anxiety) RF: 0 metformin 1,000 mg Tablet 1,000 mg PO BID RF: 0 montelukast 10 mg Tablet 10 mg PO BEDTIME RF: 0 aspirin 81 mg Tablet 81 mg PO DAILY RF: 0 loratadine 10 mg Tablet 10 mg PO DAILY RF: 0 insulin pork 36 units auto-injector QPM RF: 0 pioglitazone 30 mg tablet 30 mg PO DAILY RF: 0 albuterol sulfate 0.63 mg/3 mL solution for nebulization 0.63 mg inhalation QID PRN (Reason: shortness of breath or wheezing) Qty: 75 RF: 0 albuterol sulfate 90 mcg/actuation HFA aerosol inhaler 1 inh inhalation Q6H PRN (Reason: shortness of breath or wheezing) Qty: 8.5 RF: 0 doxycycline hyclate 100 mg capsule 100 mg PO BID 7 Days Qty: 14 RF: 0 benzonatate [Tessalon Perles] 100 mg capsule 100 mg PO TID PRN (Reason: cough) Qty: 20 RF: 0 Lantus Solostar U-100 Insulin 100 unit/mL (3 mL) insulin pen 36 unit subcut QPM RF: 0 atorvastatin 20 mg tablet 20 mg PO DAILY RF: 0 gabapentin 300 mg capsule 300 mg PO RF: 0 terbinafine HCl [Antifungal (terbinafine)] 1 % cream 1 appl topical BID Qty: 15 RF: 1 Creon 3,000-9,500- 15,000 unit capsule,delayed release(DR/EC) 1 cap PO .Q.i.d. a.c. RF: 0 Referrals: Danis Laurent MD [Primary Care Provider] - 2 days Interventions: ED Discharge Assessment Last Done: 08/18/20 17:09 Discharge Date/Time: 08/18/20 17:11
== END 2020-08-18 17:11 | disposition home or self-care (01) ==
PROVIDERS: Physician Assistant; Emergency Provider Emergency Medicine; PCP Internal Medicine
DX: B34.9 Viral infection, unspecified (principal); J40 Bronchitis, not specified as acute or chronic; I10 Essential (primary) hypertension; E11.9 Type 2 diabetes mellitus without complications; J45.909 Unspecified asthma, uncomplicated; Z79.4 Long term (current) use of insulin; Z79.899 Other long term (current) drug therapy; Z20.822 Contact with and (suspected) exposure to COVID-19
CPT/HCPCS: 36415; 71046; 87635; 87651; 99283

== ENCOUNTER → 2020-09-03 15:35 | Outpatient (BNVA) | payer OTHER, SELFPAY | PROVIDERS: PCP Internal Medicine; Referring Provider Internal Medicine; Visit Provider Nurse Practitioner | DX: K21.9 Gastro-esophageal reflux disease without esophagitis (principal); K31.84 Gastroparesis; K58.1 Irritable bowel syndrome with constipation; R13.10 Dysphagia, unspecified; R14.0 Abdominal distension (gaseous); D12.6 Benign neoplasm of colon, unspecified | CPT/HCPCS: 99212 ==

== ENCOUNTER → 2020-09-08 13:38 | Outpatient (BNVA) | payer OTHER, SELFPAY | PROVIDERS: PCP Internal Medicine; Visit Provider Nurse Practitioner Gerontology | DX: E11.65 Type 2 diabetes mellitus with hyperglycemia (principal); E78.00 Pure hypercholesterolemia, unspecified; Z79.4 Long term (current) use of insulin | CPT/HCPCS: 82947; 99212 ==

== ENCOUNTER → 2020-10-22 14:10 | Outpatient (BNVA) | payer OTHER, SELFPAY | PROVIDERS: PCP Internal Medicine; Referring Provider Internal Medicine; Visit Provider Nurse Practitioner | DX: K31.84 Gastroparesis (principal); K21.9 Gastro-esophageal reflux disease without esophagitis; K58.1 Irritable bowel syndrome with constipation; R13.10 Dysphagia, unspecified; R14.0 Abdominal distension (gaseous) | CPT/HCPCS: 99212 ==

== ENCOUNTER 2020-11-03 12:41 | Emergency (ER) | payer OTHER, SELFPAY ==
[2020-11-03 13:56] VITALS: BP 118/74; PULSE 96; RESP 16; TEMP 36.4; O2SAT 97; BMI 28.0
--- NOTE | 2020-11-03 14:02 | ED_ITS ---
HPI - Neck Pain/Injury General Chief Complaint: Neck Pain/Injury Stated Complaint: NECK AND SHOULDER PAIN Time Seen by Provider: 11/03/20 13:54 History of Present Illness HPI Narrative: Patient with 2 weeks of spontaneous left-sided trapezius area pain. No causative or precipitating factors that he knows of. He denies ever having issues with this before. He has a remote history of bilateral shoulder surgery but this is not pain in his shoulder. No weakness numbness or paresthesias No radiation of the pain Worse with movement. No other alleviating or exacerbating factors He has a history of diabetes as well as gastritis. Severity: moderate Related Data Home Medications Medication Instructions Recorded Confirmed aspirin 81 mg tablet 81 mg PO DAILY 12/04/19 09/08/20 fluticasone 250 mcg-salmeterol 50 1 inh INHALATION BID 12/04/19 09/08/20 mcg/dose blistr powdr for inhalation (Advair Diskus) loratadine 10 mg tablet 10 mg PO DAILY 12/04/19 09/08/20 lorazepam 0.5 mg tablet 0.5 mg PO QID PRN 12/04/19 09/08/20 metformin 1,000 mg tablet 1,000 mg PO BID 12/04/19 09/08/20 montelukast 10 mg tablet 10 mg PO BEDTIME 12/04/19 09/08/20 sertraline 100 mg tablet 100 mg PO DAILY 12/04/19 09/08/20 insulin pork QPM 12/11/19 09/08/20 atorvastatin 20 mg tablet 20 mg PO DAILY 07/06/20 09/08/20 gabapentin 300 mg capsule 300 mg PO cap 07/06/20 09/08/20 insulin glargine 100 unit/mL (3 36 unit SUBCUT QPM 07/06/20 09/08/20 mL) subcutaneous pen pioglitazone 30 mg tablet 30 mg PO DAILY tab 07/06/20 09/08/20 diphenhydramine HCl 25 mg capsule 25 mg PO DAILY PRN 09/08/20 09/08/20 eszopiclone 3 mg tablet 3 mg PO BEDTIME PRN 09/08/20 09/08/20 Previous Rx's Medication Instructions Recorded albuterol sulfate 0.63 mg/3 mL 0.63 mg INHALATION QID PRN #75 ml 12/03/19 solution for nebulization albuterol sulfate 90 mcg/actuation 1 inh INHALATION Q6H PRN #8.5 g 12/03/19 aerosol inhaler benzonatate 100 mg capsule 100 mg PO TID PRN #20 cap 06/25/20 (Tessalon Perles) doxycycline hyclate 100 mg capsule 100 mg PO BID 7 Days #14 cap 06/25/20 terbinafine HCl 1 % topical cream 1 appl TOPICAL BID #15 g 07/06/20 (Antifungal (terbinafine)) empagliflozin 25 mg tablet 25 mg PO QAM #30 tab 07/09/20 (Jardiance) azithromycin 250 mg tablet See Rx Instructions .ROUTE 08/18/20 .COMPLEX #6 tab metoclopramide HCl 5 mg tablet 5 mg PO .tidac #90 tab 10/22/20 (Reglan) pantoprazole 40 mg tablet,delayed 40 mg PO QAM #30 tab 10/22/20 release sennosides 8.6 mg tablet (senna) 17.2 mg PO BEDTIME #60 tab 10/22/20 simethicone 180 mg capsule 180 mg PO QID PRN #90 cap 10/22/20 repaglinide 0.5 mg tablet 0.5 mg PO TID #90 tab 11/02/20 cyclobenzaprine 10 mg tablet 10 mg PO TID #20 tab 11/03/20 Allergies Allergy/AdvReac Type Severity Reaction Status Date / Time No Known Allergies Allergy Verified 10/22/20 14:24 Review of Systems Constitutional: Constitutional: Reports no additional constitutional complaints and Denies fever(s) ENT: Reports neck pain Cardiovascular: Cardiovascular: Denies dyspnea Respiratory: Respiratory: Denies dyspnea Gastrointestinal: Comments: History of gastritis Musculoskeletal: Musculoskeletal: Reports no additional musculoskeletal complaints and Reports neck pain Neurologic: Comments: No weakness numbness or paresthesias [facility] Past Medical History Medical History (Updated 11/03/20 @ 14:07 by Matthew Rodriguez MD) Anxiety Asthma Bronchitis Chronic GERD Depression Diabetes HTN (hypertension) Hyperlipidemia Surgical History (Updated 10/22/20 @ 14:22 by JATINDER Barron) Hx of colonoscopy Hx of esophagogastroduodenoscopy Hx of hernia repair Hx of repair of rotator cuff Family History Family History Father No problems noted. Mother Hx of breast cancer Sister Diabetes Maternal Aunt Heart problem Social History Social History Household Members: Spouse Alcohol intake: unknown Patient Tobacco Use Status: Former Tobacco user Years Smoked: 20 yrs ( quit 8 years ago) Second Hand Smoke Exposure: Yes Advance Directives: No Advance Directives Information Provided: No Physical Exam Vital Signs: Vital Signs: Last Vital Signs Temp 97.5 F 11/03/20 13:56 Pulse 96 11/03/20 13:56 Resp 16 11/03/20 13:56 BP 118/74 11/03/20 13:56 Pulse Ox 97 11/03/20 13:56 Body Mass Index 28.0 Const: General: cooperative, healthy appearing, comfortable and no acute distress Orientation/consciousness: oriented to person, oriented to place, oriented to time and patient oriented x3 Neck: Other: Left-sided trapezius spasm with mild tenderness. No midline neck tenderness. Full range of motion without torticollis Resp: Effort & Inspection: normal respiratory effort, able to speak in complete sentences and normal respiratory pattern Skin: Other: No rash in the affected area Neuro: Other: Distal circulation sensation and motor is intact in the left upper extremity General: oriented to person, oriented to place, oriented to time, patient oriented x3 and gait normal Motor exam (neuro): 5/5 motor strength present throughout Extrem: Other: Full range of motion all extremities Discharge Plan Discharge Clinical Impression: Trapezius muscle spasm Patient Disposition: Home, Self-Care Instructions: Muscle Spasm (ED) Prescriptions: New cyclobenzaprine 10 mg tablet 10 mg PO TID Qty: 20 RF: 0 No Action Jardiance 25 mg tablet 25 mg PO QAM Qty: 30 RF: 3 repaglinide 0.5 mg tablet 0.5 mg PO TID Qty: 90 RF: 1 fluticasone propion-salmeterol [Advair Diskus] 250-50 mcg/dose Blister With Device 1 inh INHALATION BID RF: 0 sertraline 100 mg Tablet 100 mg PO DAILY RF: 0 lorazepam 0.5 mg Tablet 0.5 mg PO QID PRN (Reason: Anxiety) RF: 0 metformin 1,000 mg Tablet 1,000 mg PO BID RF: 0 montelukast 10 mg Tablet 10 mg PO BEDTIME RF: 0 aspirin 81 mg Tablet 81 mg PO DAILY RF: 0 loratadine 10 mg Tablet 10 mg PO DAILY RF: 0 insulin pork 36 units auto-injector QPM RF: 0 pioglitazone 30 mg tablet 30 mg PO DAILY RF: 0 albuterol sulfate 0.63 mg/3 mL solution for nebulization 0.63 mg inhalation QID PRN (Reason: shortness of breath or wheezing) Qty: 75 RF: 0 albuterol sulfate 90 mcg/actuation HFA aerosol inhaler 1 inh inhalation Q6H PRN (Reason: shortness of breath or wheezing) Qty: 8.5 RF: 0 doxycycline hyclate 100 mg capsule 100 mg PO BID 7 Days Qty: 14 RF: 0 benzonatate [Tessalon Perles] 100 mg capsule 100 mg PO TID PRN (Reason: cough) Qty: 20 RF: 0 azithromycin 250 mg tablet See Rx Instructions .ROUTE .COMPLEX Qty: 6 RF: 0 Lantus Solostar U-100 Insulin 100 unit/mL (3 mL) insulin pen 36 unit subcut QPM RF: 0 atorvastatin 20 mg tablet 20 mg PO DAILY RF: 0 gabapentin 300 mg capsule 300 mg PO RF: 0 terbinafine HCl [Antifungal (terbinafine)] 1 % cream 1 appl topical BID Qty: 15 RF: 1 eszopiclone 3 mg tablet 3 mg PO BEDTIME PRN (Reason: insomnia) RF: 0 diphenhydramine HCl 25 mg capsule 25 mg PO DAILY PRNRF: 0 metoclopramide HCl [Reglan] 5 mg tablet 5 mg PO .tidac Qty: 90 RF: 6 pantoprazole 40 mg tablet,delayed release (DR/EC) 40 mg PO QAM Qty: 30 RF: 6 sennosides [senna] 8.6 mg tablet 17.2 mg PO BEDTIME Qty: 60 RF: 6 simethicone 180 mg capsule 180 mg PO QID PRN (Reason: abdominal distention) Qty: 90 RF: 6 Referrals: Elaine Bronson DO [Physician] - 2 days Print Language: Chinese
== END 2020-11-03 14:15 | disposition home or self-care (01) ==
PROVIDERS: Emergency Provider Emergency Medicine; PCP Internal Medicine
DX: M62.838 Other muscle spasm (principal); M54.2 Cervicalgia; M25.512 Pain in left shoulder; M25.511 Pain in right shoulder; Z79.899 Other long term (current) drug therapy; Z79.82 Long term (current) use of aspirin; Z87.891 Personal history of nicotine dependence
CPT/HCPCS: 99283

== ENCOUNTER → 2020-11-11 13:29 | Outpatient (BNVA) | payer OTHER, SELFPAY | PROVIDERS: Visit Provider Orthopaedic Surgery | DX: M25.511 Pain in right shoulder (principal); M25.512 Pain in left shoulder; Z98.890 Other specified postprocedural states | CPT/HCPCS: 20610; 99212; J1040; J1100 ==

== ENCOUNTER 2021-01-03 14:00 | Outpatient (RCR) | payer OTHER, SELFPAY | END 2021-01-17 15:30 | disposition home or self-care (01) | LOC: HO.PT 14:00 | PROVIDERS: PCP Internal Medicine; Visit Provider Internal Medicine | DX: M54.2 Cervicalgia (principal) | CPT/HCPCS: 97012; 97014; 97110; 97140; 97161 ==

== ENCOUNTER 2021-01-06 12:47 | Emergency (ER) | payer OTHER, SELFPAY ==
[2021-01-06 13:08] VITALS: BP 132/87; PULSE 98; RESP 18; TEMP 37.1; O2SAT 96; BMI 29.0
--- NOTE | 2021-01-06 14:26 | ED_ITS ---
HPI - General Adult General Chief complaint: Upper Respiratory Symptoms Stated complaint: cough, sore throat, diff breathing Time Seen by Provider: 01/06/21 14:26 Source: patient Limitations: language barrier History of Present Illness HPI narrative: Patient presents to the ER with increasing cough over the past few days sore throat. Patient does have a history of asthma type 2 diabetes. Patient states worsening cough and congestion over the past few days. No nausea vomiting chest pain fever chills. Patient has been fully vaccinated for COVID- 19. Symptoms mild to moderate. No other complaints at this time. No recent travel history. Related Data Home Medications Medication Instructions Recorded Confirmed aspirin 81 mg tablet 81 mg PO DAILY 12/04/19 09/08/20 fluticasone 250 mcg-salmeterol 50 1 inh INHALATION BID 12/04/19 09/08/20 mcg/dose blistr powdr for inhalation (Advair Diskus) loratadine 10 mg tablet 10 mg PO DAILY 12/04/19 09/08/20 lorazepam 0.5 mg tablet 0.5 mg PO QID PRN 12/04/19 09/08/20 metformin 1,000 mg tablet 1,000 mg PO BID 12/04/19 09/08/20 montelukast 10 mg tablet 10 mg PO BEDTIME 12/04/19 09/08/20 sertraline 100 mg tablet 100 mg PO DAILY 12/04/19 09/08/20 insulin pork QPM 12/11/19 09/08/20 atorvastatin 20 mg tablet 20 mg PO DAILY 07/06/20 09/08/20 gabapentin 300 mg capsule 300 mg PO cap 07/06/20 09/08/20 insulin glargine 100 unit/mL (3 36 unit SUBCUT QPM 07/06/20 09/08/20 mL) subcutaneous pen pioglitazone 30 mg tablet 30 mg PO DAILY tab 07/06/20 09/08/20 diphenhydramine HCl 25 mg capsule 25 mg PO DAILY PRN 09/08/20 09/08/20 eszopiclone 3 mg tablet 3 mg PO BEDTIME PRN 09/08/20 09/08/20 acetaminophen 300 mg-codeine 30 mg 1 tab PO Q6H PRN 11/11/20 tablet alcohol swabs (Alcohol Prep Pads) 1 pad TOPICAL QID 11/11/20 aspirin 81 mg tablet,delayed 81 mg PO DAILY 11/11/20 release blood sugar diagnostic (FreeStyle #10 ea 11/11/20 Lite Strips) furosemide 20 mg tablet 20 mg PO QAM 11/11/20 pen needle, diabetic 31 gauge x #1200 ea 11/11/2007/11 (UltiCare Pen Needle) Previous Rx's Medication Instructions Recorded albuterol sulfate 0.63 mg/3 mL 0.63 mg (3 mL) INHALATION QID PRN 12/03/19 solution for nebulization #75 ml albuterol sulfate 90 mcg/actuation 1 inh INHALATION Q6H PRN #8.5 g 12/03/19 aerosol inhaler benzonatate 100 mg capsule 100 mg PO TID PRN #20 cap 06/25/20 (Tessalon Perles) doxycycline hyclate 100 mg capsule 100 mg PO BID 7 Days #14 cap 06/25/20 terbinafine HCl 1 % topical cream 1 appl TOPICAL BID #15 g 07/06/20 (Antifungal (terbinafine)) azithromycin 250 mg tablet See Rx Instructions .ROUTE 08/18/20 .COMPLEX #6 tab metoclopramide HCl 5 mg tablet 5 mg PO .tidac #90 tab 10/22/20 (Reglan) pantoprazole 40 mg tablet,delayed 40 mg PO QAM #30 tab 10/22/20 release sennosides 8.6 mg tablet (senna) 17.2 mg PO BEDTIME #60 tab 10/22/20 simethicone 180 mg capsule 180 mg PO QID PRN #90 cap 10/22/20 cyclobenzaprine 10 mg tablet 10 mg PO TID #20 tab 11/03/20 empagliflozin 25 mg tablet 25 mg PO QAM #30 tab 11/08/20 (Jardiance) repaglinide 0.5 mg tablet 0.5 mg PO TID #90 tab 12/10/20 benzonatate 100 mg capsule 100 mg PO BID PRN #14 cap 01/06/21 prednisone 20 mg tablet 40 mg PO DAILY 5 Days #10 tab 01/06/21 Allergies Allergy/AdvReac Type Severity Reaction Status Date / Time No Known Allergies Allergy Verified 01/06/21 13:08 Review of Systems Constitutional: Constitutional: Denies chills, Denies fever(s), Denies headache(s) and Denies weakness ENT: Denies headache(s) and Reports sore throat Cardiovascular: Cardiovascular: Denies chest pain and Denies dyspnea Respiratory: Respiratory: Reports chest congestion, Reports cough and Denies dyspnea Gastrointestinal: Gastrointestinal: Denies nausea and Denies vomiting Musculoskeletal: Musculoskeletal: Reports no additional musculoskeletal complaints Neurologic: Denies headache(s) and Denies weakness Psychiatric: Psychiatric: Reports no additional psychiatric complaints Endocrine: Endocrine: Reports no additional endocrine complaints [facility] Past Medical History Medical History Anxiety Asthma Bronchitis Chronic GERD Depression Diabetes HTN (hypertension) Hyperlipidemia Surgical History Hx of colonoscopy Hx of esophagogastroduodenoscopy Hx of hernia repair Hx of repair of rotator cuff Family History Family History Father No problems noted. Mother Hx of breast cancer Sister Diabetes Maternal Aunt Heart problem Social History Social History Household Members: Spouse Alcohol intake: unknown Patient Tobacco Use Status: Former Tobacco user Years Smoked: 20 yrs ( quit 8 years ago) Second Hand Smoke Exposure: Yes Advance Directives: No Advance Directives Information Provided: No Physical Exam Vital Signs: Vital Signs: Last Vital Signs Temp 98.7 F 01/06/21 13:08 Pulse 98 01/06/21 13:08 Resp 18 01/06/21 13:08 BP 132/87 01/06/21 13:08 Pulse Ox 96 01/06/21 13:08 Body Mass Index 29.0 vital signs have been reviewed as normal and appeared to be correct. Blood pressure normal. Heart rate normal. Respiration rate normal. Temperature normal. Oxygen saturation normal. Appearance: Alert. Oriented X3. No acute distress. Head: Normal external exam. Normocephalic. Atraumatic. Eyes: PERRLA. EOMI. Conjunctiva and sclera normal. Eyelids normal. ENT: Pharynx normal. Uvula midline. Moist mucous membranes. No trismus noted. No drooling noted. No muffled voice noted. Neck: Soft full range of motion, no JVD CVS: Heart regular rate and rhythm no murmurs and rubs Respiratory: Breath sounds few wheezes slightly coarse no accessory muscle use Abdomen: Soft nontender no rebound or guarding positive bowel sounds Back: No CVA tenderness. Full range of motion noted. Skin: Skin warm and dry. Normal skin color. Normal skin turgor. No rashes/lesions/lacerations noted. Extremities: No lower extremity edema. Extremities exhibit normal range of motion. Extremities nontender. Neuro: Oriented X 3. No motor deficit. No sensory deficit. Reflexes normal. Course Course Course Narrative: Acute bronchitis Asthma exacerbation COVID-19 URI Pharyngitis Throat culture COVID-19 swab pending. Patient states blood sugars under well control has been on oral steroids in the past for his asthma patient understands his blood sugars will be elevated on prednisone. Medical Decision Making Lab Data Labs: Lab Results 01/06/21 01/06/21 Range/Units 14:46 14:47 COVID-19 (JOSHUA) Negative (Negative) COVID-19 Clin Com See Note S. pyogenes GrpA SINAN Negative (Negative) Discharge Plan Discharge Clinical Impression: Asthma exacerbation Qualifiers: Asthma severity: mild Asthma persistence: intermittent Qualified Code(s): J45.21 - Mild intermittent asthma with (acute) exacerbation Patient Disposition: Home, Self-Care Instructions: Asthma (ED) Prescriptions: New prednisone 20 mg tablet 40 mg PO DAILY 5 Days Qty: 10 RF: 0 benzonatate 100 mg capsule 100 mg PO BID PRN (Reason: cough) Qty: 14 RF: 0 No Action Jardiance 25 mg tablet 25 mg PO QAM Qty: 30 RF: 3 repaglinide 0.5 mg tablet 0.5 mg PO TID Qty: 90 RF: 1 fluticasone propion-salmeterol [Advair Diskus] 250-50 mcg/dose Blister With Device 1 inh INHALATION BID RF: 0 sertraline 100 mg Tablet 100 mg PO DAILY RF: 0 lorazepam 0.5 mg Tablet 0.5 mg PO QID PRN (Reason: Anxiety) RF: 0 metformin 1,000 mg Tablet 1,000 mg PO BID RF: 0 montelukast 10 mg Tablet 10 mg PO BEDTIME RF: 0 aspirin 81 mg Tablet 81 mg PO DAILY RF: 0 loratadine 10 mg Tablet 10 mg PO DAILY RF: 0 insulin pork 36 units auto-injector QPM RF: 0 pioglitazone 30 mg tablet 30 mg PO DAILY RF: 0 albuterol sulfate 0.63 mg/3 mL solution for nebulization 0.63 mg inhalation QID PRN (Reason: shortness of breath or wheezing) Qty: 75 RF: 0 albuterol sulfate 90 mcg/actuation HFA aerosol inhaler 1 inh inhalation Q6H PRN (Reason: shortness of breath or wheezing) Qty: 8.5 RF: 0 doxycycline hyclate 100 mg capsule 100 mg PO BID 7 Days Qty: 14 RF: 0 benzonatate [Tessalon Perles] 100 mg capsule 100 mg PO TID PRN (Reason: cough) Qty: 20 RF: 0 azithromycin 250 mg tablet See Rx Instructions .ROUTE .COMPLEX Qty: 6 RF: 0 cyclobenzaprine 10 mg tablet 10 mg PO TID Qty: 20 RF: 0 Lantus Solostar U-100 Insulin 100 unit/mL (3 mL) insulin pen 36 unit subcut QPM RF: 0 atorvastatin 20 mg tablet 20 mg PO DAILY RF: 0 gabapentin 300 mg capsule 300 mg PO RF: 0 terbinafine HCl [Antifungal (terbinafine)] 1 % cream 1 appl topical BID Qty: 15 RF: 1 eszopiclone 3 mg tablet 3 mg PO BEDTIME PRN (Reason: insomnia) RF: 0 diphenhydramine HCl 25 mg capsule 25 mg PO DAILY PRNRF: 0 furosemide 20 mg tablet 20 mg PO QAM RF: 0 (DME) pen needle, diabetic [UltiCare Pen Needle] 31 gauge x 5/16 needle See Rx Instructions ea subcut .MEDSUPPLY Qty: 1200 RF: 0 alcohol swabs [Alcohol Prep Pads] Pads, Medicated 1 pad topical QID RF: 0 (DME) FreeStyle Lite Strips Strip See Rx Instructions ea Not Applicable BID Qty: 10 RF: 0 aspirin 81 mg tablet,delayed release (DR/EC) 81 mg PO DAILY RF: 0 acetaminophen-codeine 300-30 mg tablet 1 tab PO Q6H PRNRF: 0 metoclopramide HCl [Reglan] 5 mg tablet 5 mg PO .tidac Qty: 90 RF: 6 pantoprazole 40 mg tablet,delayed release (DR/EC) 40 mg PO QAM Qty: 30 RF: 6 sennosides [senna] 8.6 mg tablet 17.2 mg PO BEDTIME Qty: 60 RF: 6 simethicone 180 mg capsule 180 mg PO QID PRN (Reason: abdominal distention) Qty: 90 RF: 6 Print Language: Armenian
[2021-01-06 15:11] LABS: IDNOW Serial# 08D9AD1C; Strep A Nucleic Acid Negative (Negative)
[2021-01-06 15:17] LABS: COVID-19 Test Negative (Negative)
== END 2021-01-06 15:32 | disposition home or self-care (01) ==
PROVIDERS: Emergency Provider Emergency Medicine; PCP Internal Medicine
DX: J45.21 Mild intermittent asthma with (acute) exacerbation (principal); I10 Essential (primary) hypertension; E11.9 Type 2 diabetes mellitus without complications; Z20.822 Contact with and (suspected) exposure to COVID-19
CPT/HCPCS: 36415; 87635; 87651; 99283

== ENCOUNTER → 2021-01-17 11:44 | Outpatient (BNVA) | payer OTHER, SELFPAY | PROVIDERS: PCP Internal Medicine; Visit Provider Nurse Practitioner Gerontology | DX: Z13.89 Encounter for screening for other disorder (principal) | CPT/HCPCS: Q3014 ==

== ENCOUNTER 2021-02-01 14:32 | Outpatient (REF) | payer OTHER, SELFPAY ==
[2021-02-01 15:26] LABS: Estimated Average Glucose 229 mg/dL; Hemoglobin A1c % 9.6 %
== END 2021-02-01 14:33 | disposition home or self-care (01) ==
LOC: HO.LAB 14:32
PROVIDERS: PCP Internal Medicine; Visit Provider Nurse Practitioner Gerontology
DX: E11.65 Type 2 diabetes mellitus with hyperglycemia (principal); Z79.4 Long term (current) use of insulin
CPT/HCPCS: 36415; 83036

== ENCOUNTER → 2021-02-10 13:22 | Outpatient (BNVA) | payer OTHER, SELFPAY | PROVIDERS: PCP Internal Medicine; Visit Provider Orthopaedic Surgery | DX: M75.51 Bursitis of right shoulder (principal); M75.52 Bursitis of left shoulder; E11.65 Type 2 diabetes mellitus with hyperglycemia; Z79.4 Long term (current) use of insulin | CPT/HCPCS: 20610; 99212; J1100 ==

== ENCOUNTER 2021-03-05 10:03 | Emergency (ER) | payer OTHER, SELFPAY ==
--- NOTE | ~2021-03-05 | XR_ITS ---
EXAMINATION: RIGHT FOOT AND LEFT KNEE CLINICAL INFORMATION: Fall. COMPARISON: None TECHNIQUE: 3 views right foot and 4 views left knee. FINDINGS: Right foot: There is no visible acute fracture, dislocation or subluxation seen. The ankle mortise and subtalar joints are normal. There is a small calcaneal heel enthesophyte. No abnormal soft tissue swelling seen. Left knee: The tricompartment joint space is maintained normal. No bony erosive changes, fracture, dislocation subluxation seen. There is no abnormal suprapatellar joint effusion. Nonspecific speckle calcification of distal quadriceps tendon is noted. XR/XR knee LT 4V IMPRESSION: No acute fracture or dislocation right foot. Small calcaneal heel enthesophyte is seen. No acute fracture or dislocation left knee.
--- NOTE | ~2021-03-05 | XR_ITS ---
EXAMINATION: RIGHT FOOT AND LEFT KNEE CLINICAL INFORMATION: Fall. COMPARISON: None TECHNIQUE: 3 views right foot and 4 views left knee. FINDINGS: Right foot: There is no visible acute fracture, dislocation or subluxation seen. The ankle mortise and subtalar joints are normal. There is a small calcaneal heel enthesophyte. No abnormal soft tissue swelling seen. Left knee: The tricompartment joint space is maintained normal. No bony erosive changes, fracture, dislocation subluxation seen. There is no abnormal suprapatellar joint effusion. Nonspecific speckle calcification of distal quadriceps tendon is noted. XR/XR foot RT 2V IMPRESSION: No acute fracture or dislocation right foot. Small calcaneal heel enthesophyte is seen. No acute fracture or dislocation left knee.
[2021-03-05 11:42] VITALS: BP 103/68; PULSE 109; RESP 18; TEMP 36.7; O2SAT 96
--- NOTE | 2021-03-05 11:58 | ED_ITS ---
HPI - Fall General Chief Complaint: Fall Stated Complaint: Fall Time Seen by Provider: 03/05/21 11:57 Source: patient Mode of arrival: ambulatory Limitations: no limitations History of Present Illness HPI Narrative: This is a 60-year-old male past medical history significant for irritable bowel syndrome, asthma, anxiety, depression, GERD, diabetes presenting to the emergency department with complaints of right foot pain and left knee pain status post fall that occurred on 4 dyas ago. Left knee and right foot pain worse with ambulation, better at rest. Patient denies preceding symptoms to the fall. No loss of consciousness, no vision changes. He denies headache, dizziness, vision changes, chest pain, shortness of breath, fevers, chills, nausea, vomiting. MD complaint: fall Onset (ago): day(s) (4) Fall from: standing Fall witnessed: no Place fall occurred: home Loss of consciousness: none Prolonged down time: no Symptoms prior to fall: none Context: tripped/slipped Location of injury: other (r. foot pain, l. knee pain ) Severity: moderate Severity scale (1-10): 8 Quality: other (constant) Associated symptoms (after fall): denies Related Data Home Medications Medication Instructions Recorded Confirmed fluticasone 250 mcg-salmeterol 50 1 inh INHALATION BID 12/04/19 01/17/21 mcg/dose blistr powdr for inhalation (Advair Diskus) loratadine 10 mg tablet 10 mg PO DAILY 12/04/19 01/17/21 lorazepam 0.5 mg tablet 0.5 mg PO QID PRN 12/04/19 01/17/21 metformin 1,000 mg tablet 1,000 mg PO BID 12/04/19 01/17/21 montelukast 10 mg tablet 10 mg PO BEDTIME 12/04/19 01/17/21 sertraline 100 mg tablet 100 mg PO DAILY 12/04/19 01/17/21 atorvastatin 20 mg tablet 20 mg PO DAILY 07/06/20 01/17/21 gabapentin 300 mg capsule 300 mg PO cap 07/06/20 01/17/21 pioglitazone 30 mg tablet 30 mg PO DAILY tab 07/06/20 01/17/21 diphenhydramine HCl 25 mg capsule 25 mg PO DAILY PRN 09/08/20 01/17/21 eszopiclone 3 mg tablet 3 mg PO BEDTIME PRN 09/08/20 01/17/21 acetaminophen 300 mg-codeine 30 mg 1 tab PO Q6H PRN 11/11/20 01/17/21 tablet alcohol swabs (Alcohol Prep Pads) 1 pad TOPICAL QID 11/11/20 01/17/21 aspirin 81 mg tablet,delayed 81 mg PO DAILY 11/11/20 01/17/21 release blood sugar diagnostic (FreeStyle #10 ea 11/11/20 01/17/21 Lite Strips) furosemide 20 mg tablet 20 mg PO QAM 11/11/20 01/17/21 pen needle, diabetic 31 gauge x #1200 ea 11/11/20 01/17/2107/11 (UltiCare Pen Needle) nabumetone 500 mg tablet 500 mg PO BID PRN 01/17/21 01/17/21 Previous Rx's Medication Instructions Recorded albuterol sulfate 0.63 mg/3 mL 0.63 mg (3 mL) INHALATION QID PRN 12/03/19 solution for nebulization #75 ml albuterol sulfate 90 mcg/actuation 1 inh INHALATION Q6H PRN #8.5 g 12/03/19 aerosol inhaler metoclopramide HCl 5 mg tablet 5 mg PO .tidac #90 tab 10/22/20 (Reglan) pantoprazole 40 mg tablet,delayed 40 mg PO QAM #30 tab 10/22/20 release sennosides 8.6 mg tablet (senna) 17.2 mg PO BEDTIME #60 tab 10/22/20 simethicone 180 mg capsule 180 mg PO QID PRN #90 cap 10/22/20 cyclobenzaprine 10 mg tablet 10 mg PO TID #20 tab 11/03/20 benzonatate 100 mg capsule 100 mg PO BID PRN #14 cap 01/06/21 empagliflozin 25 mg tablet 25 mg PO QAM #30 tab 01/17/21 (Jardiance) repaglinide 0.5 mg tablet 0.5 mg PO TID #90 tab 01/17/21 terbinafine HCl 1 % topical cream 1 appl TOPICAL BID #15 g 01/17/21 (Antifungal (terbinafine)) insulin glargine 100 unit/mL (3 38 unit (0.38 mL) SUBCUT QPM 90 02/15/21 mL) subcutaneous pen Days #34.2 ml oxycodone 5 mg capsule 5 mg PO BID PRN #6 cap 03/05/21 Allergies Allergy/AdvReac Type Severity Reaction Status Date / Time No Known Allergies Allergy Verified 02/10/21 13:24 Review of Systems Review of Systems: Constitutional : No Weight loss, No Fever, No Chills, No Fatigue, No Malaise ENT/Mouth : No sore throat, No Rhinorrhea Eyes: No Eye Pain, No Swelling, No Redness Cardiovascular : No Chest Pain, No SOB, No Dyspnea on Exertion, No Orthopnea, No Edema, No Palpitations Respiratory : No Cough, No Sputum, No Wheezing Gastrointestinal : No Nausea, No Vomiting, No Diarrhea, No Constipation, No abdominal Pain, No Hematochezia, No Melena Genitourinary : No Dysuria, No Urinary Frequency, No Hematuria, Musculoskeletal : + joint pain, No Myalgias, + Joint Swelling Skin : No Skin Lesions, No rash Neuro : No Weakness, No Numbness, No Dizziness, No Headache All other systems reviewed and are negative Yes all other systems are reviewed and are negative [facility] Past Medical History Attestation statement: The following information was validated with the patient. Source: old records reviewed and nursing notes reviewed Medical History Anxiety Asthma Bronchitis Chronic GERD Depression Diabetes HTN (hypertension) Hyperlipidemia Surgical History Hx of colonoscopy Hx of esophagogastroduodenoscopy Hx of hernia repair Hx of repair of rotator cuff Family History Family History Father No problems noted. Mother Hx of breast cancer Sister Diabetes Maternal Aunt Heart problem Social History Social History Household Members: Spouse Alcohol intake: unknown Patient Tobacco Use Status: Former Tobacco user Years Smoked: 20 yrs ( quit 8 years ago) Second Hand Smoke Exposure: Yes Advance Directives: No Advance Directives Information Provided: Yes Physical Exam Vital Signs: Vital Signs: Last Vital Signs Temp 98.0 F 03/05/21 11:42 Pulse 109 H 01/08/22 11:42 Resp 18 03/05/21 11:42 BP 103/68 03/05/21 11:42 Pulse Ox 96 03/05/21 11:42 BMI result Body Mass Index 2.5 Vital signs stable, patient noted to be slightly tachycardic likely secondary to anxiety. Appearance: Alert.? Oriented X3.? No acute distress.? Head: Normocephalic, atraumatic, no step-offs or deformities Eyes: Pupils equal, round and reactive to light.? ENT: Pharynx normal.? Neck: Normal inspection.? Neck supple.? CVS: Normal heart rate and rhythm.? Pulses normal.? Respiratory: No respiratory distress.? Breath sounds normal.? Abdomen: Soft and nontender.? Skin: Skin warm and dry.? Normal skin color.? Normal skin turgor.? Extremities: No lower extremity edema.? No calf ttp. 5/5 strength to bilateral upper and lower extremities. Full range of motion to left knee, and right ankle. No evident ligament or tendon involvement. Patient reports pain to palpation over the right lateral malleolus. Back: No midline tenderness, no C-spine tenderness, full range of motion, no CVA tenderness bilaterally Neuro: Oriented X 3.? No motor deficit.? No sensory deficit. Course Reevaluation(s) Reevaluation #1: X-rays with no acute fracture dislocation. Likely an ankle strain or knee strain. I will give patient an Karl wrap. I have given him medications for pain here. I will send a stronger pain medicine to his pharmacy as patient is driving. I have encouraged him to continue to use the cane, he should follow-up with his PCP and/or Orthopedics if new or worsening symptoms he can also return to the emergency department. Time: 13:08 MDM - Fall [facility] Narrative Medical decision making narrative: 1202 60 yo M presents w/ L. knee pain, R. foot pain s/p fall 4 days ago. PE benign full range of motion to left knee, and right ankle. No evident ligament or tendon involvement. Patient reports pain to palpation over the right lateral malleolus. Plan- xrays. Medical Records Attestation: I reviewed the patient's medical records. Lab Data Attestation: I reviewed the patient's lab results. Imaging Data Left knee, right foot Xray : Attestation: I personally reviewed and interpreted this imaging study as follows: Radiologist's impression: XR/XR knee LT 4V IMPRESSION: No acute fracture or dislocation right foot. Small calcaneal heel enthesophyte is seen. ? No acute fracture or dislocation left knee.? Critical Care Time Critical Care Time Critical Care Time: No Discharge Plan Discharge Clinical Impression: Right foot pain, Left knee pain Patient Disposition: Home, Self-Care Instructions: Knee Pain (ED), R.I.C.E. Treatment (ED) Additional Instructions: Take your medications as prescribed. If you were prescribed antibiotics today, it is important that you take your medication to their entirety, do not skip any doses, do not finish them early. Follow-up with your primary care provider this week. Up with orthopedics severe symptoms do not improve within 2 weeks. I will send a narcotic to your pharmacy only uses for severe pain. If you are not experiencing severe pain please alternate ibuprofen every 6 hours and Tylenol every 4 as needed for pain. Return to the emergency department with new or worsening symptoms. Such as worsening pain, numbness or tingling, chest pain, shortness of breath, fevers or chills. In case of emergency call 911 [place] [facility] medicamentos seg?n lo prescrito. Si le recetaron antibi?ticos hoy, es importante que tome em medicamento en em totalidad, no se salte ninguna dosis, no los termine antes de tiempo. Seguimiento con em proveedor de atenci?n primaria esta semana. Con la ortopedia, los s?ntomas graves no mejoran en 2 semanas. Le enviar? un narc?bhumi a em farmacia que solo se usa para el dolor intenso. Si no experimenta dolor intenso, alterne ibuprofeno cada 6 horas y Tylenol cada 4 seg?n sea necesario para el dolor. Regrese al departamento de emergencias con s?ntomas nuevos o que empeoran. Brea empeoramiento del dolor, entumecimiento u hormigueo, dolor de pecho, dificultad para respirar, fiebre o escalofr?os. En thu de emergencia llama al 911 Prescriptions: New oxycodone 5 mg capsule 5 mg PO BID PRN (Reason: pain) Qty: 6 RF: 0 No Action insulin glargine 100 unit/mL (3 mL) insulin pen 38 unit subcut QPM 90 Days Qty: 34.2 RF: 1 fluticasone propion-salmeterol [Advair Diskus] 250-50 mcg/dose Blister With Device 1 inh INHALATION BID RF: 0 sertraline 100 mg Tablet 100 mg PO DAILY RF: 0 lorazepam 0.5 mg Tablet 0.5 mg PO QID PRN (Reason: Anxiety) RF: 0 metformin 1,000 mg Tablet 1,000 mg PO BID RF: 0 montelukast 10 mg Tablet 10 mg PO BEDTIME RF: 0 loratadine 10 mg Tablet 10 mg PO DAILY RF: 0 pioglitazone 30 mg tablet 30 mg PO DAILY RF: 0 albuterol sulfate 0.63 mg/3 mL solution for nebulization 0.63 mg inhalation QID PRN (Reason: shortness of breath or wheezing) Qty: 75 RF: 0 albuterol sulfate 90 mcg/actuation HFA aerosol inhaler 1 inh inhalation Q6H PRN (Reason: shortness of breath or wheezing) Qty: 8.5 RF: 0 cyclobenzaprine 10 mg tablet 10 mg PO TID Qty: 20 RF: 0 benzonatate 100 mg capsule 100 mg PO BID PRN (Reason: cough) Qty: 14 RF: 0 atorvastatin 20 mg tablet 20 mg PO DAILY RF: 0 gabapentin 300 mg capsule 300 mg PO RF: 0 eszopiclone 3 mg tablet 3 mg PO BEDTIME PRN (Reason: insomnia) RF: 0 diphenhydramine HCl 25 mg capsule 25 mg PO DAILY PRNRF: 0 furosemide 20 mg tablet 20 mg PO QAM RF: 0 (DME) pen needle, diabetic [UltiCare Pen Needle] 31 gauge x 5/16 needle See Rx Instructions ea subcut .MEDSUPPLY Qty: 1200 RF: 0 alcohol swabs [Alcohol Prep Pads] Pads, Medicated 1 pad topical QID RF: 0 (DME) FreeStyle Lite Strips Strip See Rx Instructions ea Not Applicable BID Qty: 10 RF: 0 aspirin 81 mg tablet,delayed release (DR/EC) 81 mg PO DAILY RF: 0 acetaminophen-codeine 300-30 mg tablet 1 tab PO Q6H PRNRF: 0 metoclopramide HCl [Reglan] 5 mg tablet 5 mg PO .tidac Qty: 90 RF: 6 pantoprazole 40 mg tablet,delayed release (DR/EC) 40 mg PO QAM Qty: 30 RF: 6 sennosides [senna] 8.6 mg tablet 17.2 mg PO BEDTIME Qty: 60 RF: 6 simethicone 180 mg capsule 180 mg PO QID PRN (Reason: abdominal distention) Qty: 90 RF: 6 nabumetone 500 mg tablet 500 mg PO BID PRNRF: 0 terbinafine HCl [Antifungal (terbinafine)] 1 % cream 1 appl topical BID Qty: 15 RF: 2 Jardiance 25 mg tablet 25 mg PO QAM Qty: 30 RF: 6 repaglinide 0.5 mg tablet 0.5 mg PO TID Qty: 90 RF: 6 Referrals: Celso Gonzales MD [Physician] - 2 weeks Stand Alone Forms: Work/School Release Print Language: Sami
[2021-03-05] MEDS: Ibuprofen 800 MG TABLET PO (12:58)
== END 2021-03-05 13:31 | disposition home or self-care (01) ==
PROVIDERS: Emergency Provider Internal Medicine; PCP Internal Medicine
DX: M79.671 Pain in right foot (principal); M25.562 Pain in left knee; Z91.81 History of falling; E11.9 Type 2 diabetes mellitus without complications
CPT/HCPCS: 73564; 73620; 99283

== ENCOUNTER 2021-03-23 14:56 | Outpatient (REF) | payer OTHER, SELFPAY ==
--- NOTE | ~2021-03-23 | XR_ITS ---
EXAMINATION: XR CERVICAL SPINE CLINICAL INFORMATION: Spondylosis. COMPARISON: No similar priors. TECHNIQUE: 3 views of the cervical spine were obtained. FINDINGS: No evidence of acute fractures or malalignment. The atlantooccipital and atlantoaxial articulations are maintained. On the odontoid view, the dens is intact. Mild to moderate multilevel cervical spondylosis with disc space narrowing, anterior osteophytes and bilateral uncovertebral hypertrophy. No prevertebral soft tissue thickening. No unexpected radiopaque foreign bodies. The lung apices are out of the field of view. XR/XR cervical spine 3V IMPRESSION: No acute fractures or malalignment. Mild to moderate cervical spondylosis. Evaluation of central canal narrowing and neural foraminal encroachment is suboptimal in this examination and further correlation with an MR of the cervical spine could be obtained if indicated.
== END 2021-03-23 14:57 | disposition home or self-care (01) ==
LOC: HO.XRAY 14:56
PROVIDERS: PCP Internal Medicine; Visit Provider Physician Assistant
DX: M47.812 Spondylosis without myelopathy or radiculopathy, cervical region (principal)
CPT/HCPCS: 72040

== ENCOUNTER 2021-04-06 15:00 | Outpatient (REF) | payer OTHER, SELFPAY ==
--- NOTE | ~2021-04-06 | XR_ITS ---
EXAMINATION: XR RIGHT ANKLE, BILATERAL KNEE CLINICAL INFORMATION: Pain. COMPARISON: None. TECHNIQUE: Right ankle 3 views. 4 views each knee. FINDINGS: Right Ankle: The ankle mortise and subtalar joints are normal. No visible acute fracture, dislocation or subluxation seen. There is a small calcaneal heel enthesophyte. The soft tissues are normal. Left Knee: The tricompartment joint space is normal. No visible acute fracture, dislocation or lytic process seen. There is minimal lateral patellar spurring. No abnormal joint effusion seen. Right Knee: The tricompartment joint space is normal. Minimal superior and lateral patellar spurring is seen. No bony erosive changes or loose bodies noted. XR/XR knee LT 3V IMPRESSION: Small calcaneal heel enthesophyte. No visible acute fracture or dislocation. Bilateral lateral patellar spurring. No visible acute fracture, dislocation or subluxation seen in either knee.
--- NOTE | ~2021-04-06 | XR_ITS ---
EXAMINATION: XR RIGHT ANKLE, BILATERAL KNEE CLINICAL INFORMATION: Pain. COMPARISON: None. TECHNIQUE: Right ankle 3 views. 4 views each knee. FINDINGS: Right Ankle: The ankle mortise and subtalar joints are normal. No visible acute fracture, dislocation or subluxation seen. There is a small calcaneal heel enthesophyte. The soft tissues are normal. Left Knee: The tricompartment joint space is normal. No visible acute fracture, dislocation or lytic process seen. There is minimal lateral patellar spurring. No abnormal joint effusion seen. Right Knee: The tricompartment joint space is normal. Minimal superior and lateral patellar spurring is seen. No bony erosive changes or loose bodies noted. XR/XR ankle RT min 3V IMPRESSION: Small calcaneal heel enthesophyte. No visible acute fracture or dislocation. Bilateral lateral patellar spurring. No visible acute fracture, dislocation or subluxation seen in either knee.
--- NOTE | ~2021-04-06 | XR_ITS ---
EXAMINATION: XR RIGHT ANKLE, BILATERAL KNEE CLINICAL INFORMATION: Pain. COMPARISON: None. TECHNIQUE: Right ankle 3 views. 4 views each knee. FINDINGS: Right Ankle: The ankle mortise and subtalar joints are normal. No visible acute fracture, dislocation or subluxation seen. There is a small calcaneal heel enthesophyte. The soft tissues are normal. Left Knee: The tricompartment joint space is normal. No visible acute fracture, dislocation or lytic process seen. There is minimal lateral patellar spurring. No abnormal joint effusion seen. Right Knee: The tricompartment joint space is normal. Minimal superior and lateral patellar spurring is seen. No bony erosive changes or loose bodies noted. XR/XR knee RT 3V IMPRESSION: Small calcaneal heel enthesophyte. No visible acute fracture or dislocation. Bilateral lateral patellar spurring. No visible acute fracture, dislocation or subluxation seen in either knee.
== END 2021-04-06 15:01 | disposition home or self-care (01) ==
LOC: HO.XRAY 15:00
PROVIDERS: PCP Internal Medicine; Visit Provider Internal Medicine
DX: M25.561 Pain in right knee (principal); M25.562 Pain in left knee; M25.571 Pain in right ankle and joints of right foot
CPT/HCPCS: 73562; 73610

== ENCOUNTER 2021-04-08 14:39 | Outpatient (REF) | payer OTHER, SELFPAY ==
--- NOTE | ~2021-04-08 | MM_ITS ---
EXAMINATION: MM DIAGNOSTIC DIGITAL BREAST TOMOSYNTHESIS, BILATERAL Targeted left breast ultrasound CLINICAL INFORMATION: Left breast pain COMPARISON: Mammography: None TECHNIQUE: Digital breast tomosynthesis is performed in both the craniocaudal and mediolateral oblique views along with computer-aided detection (CAD). Synthesized 2D images are generated from the tomosynthesis. Left breast exaggerated craniocaudal view also performed. Targeted left breast ultrasound. FINDINGS: The breasts are almost entirely fatty (ACR BI-RADS breast composition Category a). There are no significant masses, abnormal calcifications, or other abnormalities. Ultrasound evaluation of the region of pain within the left breast did not demonstrate any abnormal cystic or solid masses. No region of abnormal distal sound shadowing. Results are discussed with the patient at time of visit. MM/MM tomosynthesis diagnostic BI IMPRESSION: No mammographic evidence of malignancy. ASSESSMENT: BI-RADS 1: Negative RECOMMENDATION: Clinical follow-up
--- NOTE | ~2021-04-08 | US_ITS ---
EXAMINATION: US DIAGNOSTIC ULTRASOUND BREAST, LEFT CLINICAL INFORMATION: Left breast pain. COMPARISON: Mammography of same day. TECHNIQUE: Ultrasound of the breast is performed with real-time mills scale imaging and color Doppler. FINDINGS: There is no focal suspicious finding. There is no solid mass, architectural abnormality, duct ectasia, or edema in the soft tissue planes. Results are discussed with the patient at time of visit. US/US breast LT limited IMPRESSION: No ultrasound abnormality of the left breast identified. ASSESSMENT: BI-RADS 1: Negative RECOMMENDATION: Clinical follow-up
== END 2021-04-08 14:40 | disposition home or self-care (01) ==
LOC: HO.MAMMO 14:39
PROVIDERS: Visit Provider Internal Medicine
DX: N64.4 Mastodynia (principal); N62 Hypertrophy of breast
CPT/HCPCS: 76642; 77062; 77066

== ENCOUNTER 2021-04-25 11:57 | Outpatient (REF) | payer OTHER, SELFPAY ==
[2021-04-25 12:41] LABS: Estimated Average Glucose 212 mg/dL
[2021-04-25 13:08] LABS: Alanine Aminotransferase 23 U/L (0-40); Albumin Level 4.1 g/dL (3.5-5.0); Alkaline Phosphatase 57 U/L (39-117); Anion Gap 12 (12-20); Aspartate Amino Transferase 27 U/L (5-37); Bilirubin Total 0.3 mg/dL (0.0-1.0); Blood Urea Nitrogen 16 mg/dL (9-16); Calcium 9.3 mg/dL (8.4-10.2); Carbon Dioxide 23 mmol/L (22-29); Chloride 104 mmol/L (96-108); Cholesterol 136 mg/dL; Estimated Glomerular Filt Rate > 60; Glucose Fasting 129 mg/dL (60-99); HDL Cholesterol 42 mg/dL; LDL Cholesterol Calculated 74 mg/dl; Potassium 4.3 mmol/L (3.3-5.1); Sodium 135 mmol/L (135-145); Total Protein 8.1 g/dL (6.5-8.0); Triglycerides 100 mg/dL
[2021-04-25 13:28] LABS: Vitamin B12 318 pg/mL (200-900)
[2021-04-25 14:25] LABS: Creatinine Urine 138.52 mg/dL; Microalbum/Creatinine Ratio Ur 14.4 ug/mg cr
== END 2021-04-25 11:58 | disposition home or self-care (01) ==
LOC: HO.LAB 11:57
PROVIDERS: PCP Internal Medicine; Visit Provider Nurse Practitioner Gerontology
DX: K21.9 Gastro-esophageal reflux disease without esophagitis (principal); K31.84 Gastroparesis; K58.1 Irritable bowel syndrome with constipation; E11.65 Type 2 diabetes mellitus with hyperglycemia; Z79.4 Long term (current) use of insulin
CPT/HCPCS: 36415; 80053; 80061; 82043; 82607; 83036; 99212

== ENCOUNTER → 2021-05-05 12:46 | Outpatient (BNVA) | payer OTHER, SELFPAY | PROVIDERS: PCP Internal Medicine; Visit Provider Nurse Practitioner Gerontology | DX: E11.65 Type 2 diabetes mellitus with hyperglycemia (principal); E78.00 Pure hypercholesterolemia, unspecified; E66.3 Overweight; Z79.4 Long term (current) use of insulin; Z68.29 Body mass index [BMI] 29.0-29.9, adult | CPT/HCPCS: 82947; 99212 ==

== ENCOUNTER 2021-05-06 13:35 | Outpatient (REF) | payer OTHER, SELFPAY ==
[2021-05-06 15:03] LABS: Free T4 (Free Thyroxine) 0.94 ng/dL (0.71-1.85); Thyroid Stimulating Hormone 1.35 uIU/mL (0.32-4.0)
[2021-05-09 14:02] LABS: Thyroglobulin Antibodies <1 IU/mL (< or = 1)
[2021-05-09 17:16] LABS: Thyroid Peroxidase Antibodies 5 IU/mL (<9)
== END 2021-05-06 13:36 | disposition home or self-care (01) ==
LOC: HO.LAB 13:35
PROVIDERS: Absent Provider Internal Medicine; PCP Internal Medicine; Visit Provider Nurse Practitioner Gerontology
DX: E04.9 Nontoxic goiter, unspecified (principal)
CPT/HCPCS: 36415; 84439; 84443; 86376; 86800

== ENCOUNTER → 2021-05-27 11:45 | Outpatient (BNVA) | payer OTHER, SELFPAY | PROVIDERS: PCP Internal Medicine; Referring Provider Internal Medicine; Visit Provider Nurse Practitioner | DX: K31.84 Gastroparesis (principal); K21.9 Gastro-esophageal reflux disease without esophagitis; R13.10 Dysphagia, unspecified; R14.0 Abdominal distension (gaseous); K58.1 Irritable bowel syndrome with constipation | CPT/HCPCS: 99212 ==

== ENCOUNTER 2021-06-03 15:54 | Outpatient (REF) | payer OTHER, SELFPAY ==
--- NOTE | ~2021-06-03 | US_ITS ---
EXAMINATION: US THYROID CLINICAL INFORMATION: Nontoxic goiter, unspecified COMPARISON: CT soft tissue neck 08/04/2015. TECHNIQUE: Linear transducer grayscale and color Doppler examination with attention to the region of the thyroid. FINDINGS: SIZE: Measurements of the thyroid lobes and nodules are given in sagittal, anteroposterior and transverse dimensions respectively. Right Thyroid Lobe: 3.7 x 1.4 x 1.3 cm, volume 3.6 mL. Parenchyma: The gland echotexture is homogeneous. Thyroid vascularity is normal. Left Thyroid Lobe: 3.2 x 0.9 x 1.6 cm, volume 2.5 mL. Parenchyma: The gland echotexture is homogeneous. Thyroid vascularity is normal. Isthmus: 0.3 cm in maximum AP dimension. No focal thyroid nodule is seen. NODES: No lymphadenopathy is seen in the tissue surrounding the thyroid gland. US/US thyroid IMPRESSION: Small thyroid gland. No nodule seen. ACR TI-RADS RECOMMENDATION REFERENCE: Ultrasound-guided fine-needle aspiration, followup ultrasound, no further follow up. * TR1 (0 point) and TR 2 (2 points): No FNA or follow up * TR3 (3 points): FNA if more than or equal to 2.5 cm in maximum dimension, followup ultrasound in 1, 3 and 5 years if 1.5 to 2.4 cm in maximum dimension. * TR4 (4-6 points): FNA if more than or equal to 1.5 cm in maximum dimension, followup ultrasound in 1, 2, 3 and 5 years if 1 to 1.4 cm in maximum dimension. * TR5 (more than or equal to 7 points): FNA if more than or equal to 1 cm in maximum dimension, followup ultrasound every year for 5 years if 0.5 to 0.9 cm in maximum dimension. * TR3, TR4 or TR5 nodules that are below the size threshold for follow up receive no follow up.
== END 2021-06-03 15:55 | disposition home or self-care (01) ==
LOC: HO.US 15:54
PROVIDERS: Visit Provider Nurse Practitioner Gerontology
DX: E04.9 Nontoxic goiter, unspecified (principal)
CPT/HCPCS: 76536

== ENCOUNTER 2021-09-06 08:30 | Day surgery (SDC) | payer OTHER, SELFPAY ==
--- NOTE | 2021-09-05 10:05 | P.CONAN_ITS ---
Documented by User: Karie Solis NP 09/05/21 10:06 HPI - Anesthesia Eval Consult details Narrative: 61yo M for Upper Endoscopy PMF Active Problems Active Problems: All Active Problems (Updated 05/05/21 @ 16:26 by VIKASH Miles) Goiter (Acute) Overweight (Acute) Bilateral shoulder bursitis (Acute) Status post rotator cuff surgery (Acute) Gastroparesis (Acute) GERD (gastroesophageal reflux disease) (Acute) Dysphagia (Acute) Abdominal bloating (Acute) Tubular adenoma of colon (Acute) Irritable bowel syndrome with constipation (Acute) Tinea pedis (Acute) Type 2 diabetes mellitus with hyperglycemia (Acute) Diabetes (Acute) Hyperlipidemia (Acute) Past Medical History Medical History Anxiety Asthma Bronchitis Chronic GERD Depression Diabetes HTN (hypertension) Hyperlipidemia Family History Family History Father No problems noted. Mother Hx of breast cancer Sister Diabetes Maternal Aunt Heart problem Surgical History Surgical History Hx of colonoscopy Hx of esophagogastroduodenoscopy Hx of hernia repair Hx of repair of rotator cuff Hx of toe surgery Social History Social History Household Members: Spouse Alcohol intake: unknown Patient Tobacco Use Status: Former Tobacco user Years Smoked: 20 yrs ( quit 8 years ago) Second Hand Smoke Exposure: Yes Are you DNR?: No Advance Directives: No Advance Directives Information Provided: Yes Meds Allergies Allergy/AdvReac Type Severity Reaction Status Date / Time No Known Allergies Allergy Verified 05/27/21 12:23 Home Medications Medication Instructions Recorded Confirmed Last Taken Type fluticasone 250 mcg-salmeterol 50 1 inh inhalation BID 12/04/19 01/17/21 Unknown History mcg/dose blistr powdr for inhalation (Advair Diskus) loratadine 10 mg tablet 10 mg PO DAILY 12/04/19 01/17/21 Unknown History lorazepam 0.5 mg tablet 0.5 mg PO QID PRN Anxiety 12/04/19 01/17/21 Unknown History metformin 1,000 mg tablet 1,000 mg PO BID 12/04/19 05/05/21 Unknown History montelukast 10 mg tablet 10 mg PO BEDTIME 12/04/19 01/17/21 Unknown History sertraline 100 mg tablet 100 mg PO DAILY 12/04/19 01/17/21 Unknown History atorvastatin 20 mg tablet 20 mg PO DAILY 07/06/20 05/05/21 Unknown History gabapentin 300 mg capsule 300 mg PO 07/06/20 01/17/21 Unknown History pioglitazone 30 mg tablet 30 mg PO DAILY 07/06/20 05/05/21 Unknown History diphenhydramine HCl 25 mg capsule 25 mg PO DAILY PRN 09/08/20 01/17/21 Unknown History eszopiclone 3 mg tablet 3 mg PO BEDTIME PRN insomnia 09/08/20 01/17/21 Unknown History acetaminophen 300 mg-codeine 30 mg 1 tab PO Q6H PRN 11/11/20 01/17/21 Unknown History tablet alcohol swabs (Alcohol Prep Pads) 1 pad topical QID 11/11/20 01/17/21 Unknown History aspirin 81 mg tablet,delayed 81 mg PO DAILY 11/11/20 01/17/21 Unknown History release blood sugar diagnostic (FreeStyle #10 ea 11/11/20 01/17/21 Unknown History Lite Strips) furosemide 20 mg tablet 20 mg PO QAM 11/11/20 01/17/21 Unknown History pen needle, diabetic 31 gauge x #1,200 ea 11/11/20 01/17/21 Unknown History 07/11 (UltiCare Pen Needle) nabumetone 500 mg tablet 500 mg PO BID PRN 01/17/21 01/17/21 Unknown History Exam Exam Date and Time: September 05, 2021 1005 Pertinent Lab Results Pertinent Lab Results: Laboratory Tests 12/03/19 04/25/21 15:59 12:20 WBC 10.2 Hgb 14.0 Hct 44.4 Plt Count 250 Sodium 135 Potassium 4.3 Chloride 104 Carbon Dioxide 23 BUN 16 Creatinine 1.07 Assessment and Plan Assessment Anesthesia Assessment: Chart Reviewed Documented by User: Carrol Elliott MD 09/06/21 10:23 [facility] Active Problems Active Problems: All Active Problems (Updated 05/05/21 @ 16:26 by VIKASH Miles) Goiter (Acute) Overweight (Acute) Bilateral shoulder bursitis (Acute) Status post rotator cuff surgery (Acute) Gastroparesis (Acute) GERD (gastroesophageal reflux disease) (Acute) Dysphagia (Acute) Abdominal bloating (Acute) Tubular adenoma of colon (Acute) Irritable bowel syndrome with constipation (Acute) Tinea pedis (Acute) Type 2 diabetes mellitus with hyperglycemia (Acute) Diabetes (Acute) Hyperlipidemia (Acute) Asthma. Inhaler prn. Last used 2 weeks ago Past Medical History Medical History Anxiety Asthma Bronchitis Chronic GERD Depression Diabetes HTN (hypertension) Hyperlipidemia Family History Family History Father No problems noted. Mother Hx of breast cancer Sister Diabetes Maternal Aunt Heart problem Family history of problems with anesthesia: No Surgical History Surgical History Hx of colonoscopy Hx of esophagogastroduodenoscopy Hx of hernia repair Hx of repair of rotator cuff Hx of toe surgery History of Problems with Anesthesia: No Social History Social History Household Members: Spouse Alcohol intake: unknown Patient Tobacco Use Status: Former Tobacco user Years Smoked: 20 yrs ( quit 8 years ago) Second Hand Smoke Exposure: Yes Are you DNR?: No Advance Directives: No Advance Directives Information Provided: Yes Meds Allergies Allergy/AdvReac Type Severity Reaction Status Date / Time No Known Allergies Allergy Verified 05/27/21 12:23 Home Medications Medication Instructions Recorded Confirmed Last Taken Type fluticasone 250 mcg-salmeterol 50 1 inh inhalation BID 12/04/19 01/17/21 Unknown History mcg/dose blistr powdr for inhalation (Advair Diskus) loratadine 10 mg tablet 10 mg PO DAILY 12/04/19 01/17/21 Unknown History lorazepam 0.5 mg tablet 0.5 mg PO QID PRN Anxiety 12/04/19 01/17/21 Unknown History metformin 1,000 mg tablet 1,000 mg PO BID 12/04/19 05/05/21 Unknown History montelukast 10 mg tablet 10 mg PO BEDTIME 12/04/19 01/17/21 Unknown History sertraline 100 mg tablet 100 mg PO DAILY 12/04/19 01/17/21 Unknown History atorvastatin 20 mg tablet 20 mg PO DAILY 07/06/20 05/05/21 Unknown History gabapentin 300 mg capsule 300 mg PO 07/06/20 01/17/21 Unknown History pioglitazone 30 mg tablet 30 mg PO DAILY 07/06/20 05/05/21 Unknown History diphenhydramine HCl 25 mg capsule 25 mg PO DAILY PRN 09/08/20 01/17/21 Unknown History eszopiclone 3 mg tablet 3 mg PO BEDTIME PRN insomnia 09/08/20 01/17/21 Unknown History acetaminophen 300 mg-codeine 30 mg 1 tab PO Q6H PRN 11/11/20 01/17/21 Unknown History tablet alcohol swabs (Alcohol Prep Pads) 1 pad topical QID 11/11/20 01/17/21 Unknown History aspirin 81 mg tablet,delayed 81 mg PO DAILY 11/11/20 01/17/21 Unknown History release blood sugar diagnostic (FreeStyle #10 ea 11/11/20 01/17/21 Unknown History Lite Strips) furosemide 20 mg tablet 20 mg PO QAM 11/11/20 01/17/21 Unknown History pen needle, diabetic 31 gauge x #1,200 ea 11/11/20 01/17/21 Unknown History 07/11 (UltiCare Pen Needle) nabumetone 500 mg tablet 500 mg PO BID PRN 01/17/21 01/17/21 Unknown History Exam Height,Weight and Vital Signs: Height 5 ft 9 in Weight 90.265 kg Vital Signs Temp Pulse Resp BP Pulse Ox O2 Del Method 09/06/21 10:04 97.9 F 82 18 152/77 H 96 Room Air Pertinent Lab Results Pertinent Lab Results: Laboratory Tests 12/03/19 04/25/21 15:59 12:20 WBC 10.2 Hgb 14.0 Hct 44.4 Plt Count 250 Sodium 135 Potassium 4.3 Chloride 104 Carbon Dioxide 23 BUN 16 Creatinine 1.07 POC 182mg% Airway Mallampati Class: III (Small mouth opening) TM Dist: >3cm Neck ROM: Full Denture: Upper Loose/Missing/Broken Teeth: No (No broken or loose bottom per patient) Heart: RRR Lungs: CTAB Assessment and Plan Assessment Anesthesia Assessment: Anesthesia Plan Discussed Final Anesthetic Review Family History of Problems with Anesthesia: No History of Problems with Anesthesia: No NPO: Yes ASA Class: II Final Preanesthetic Review: No Changes in Pt Med Stat, Meds/Allgs Chart Reviewed, Consent Obtained/Reviewed and Anes Risks/Benef Reviewed Patient Risk: Low Procedure Risk: Low Assessment/Block/Sedation in SS: Assess/Block/Sedation-SS Anesthetic Plan Anesthetic Plan: MAC: Disposition: Standard PACU
--- NOTE | 2021-09-06 09:30 | MHC.SHP ---
Pre-Procedural Eval Section A Date of Service: 09/06/21 The patient is an INPATIENT: No Changes since office visit: Yes Cold of Flu in the past 2 weeks The History & Physical has been completed within 30 days and I have reviewed it.: No Section B Chief Complaint: reflux,dysphasia,distension Details of Present Illness: GERD, dysphagia, abdominal bloating Relevant Family History (Specify if Yes): No Relevant Social History: Tobacco Use (former smoker) Present Medications: see Short Stay Collaborative assessment Medical History: Significant History (Anxiety Asthma Bronchitis Chronic GERD Depression Diabetes HTN (hypertension) Hyperlipidemia) History of Previous Operations: Relevant previous surgery/procedure and date(s) (Hx of colonoscopy Hx of esophagogastroduodenoscopy Hx of hernia repair Hx of repair of rotator cuff Hx of toe surgery) Allergies: Allergies Allergy/AdvReac Type Severity Reaction Status Date / Time No Known Allergies Allergy Verified 05/27/21 12:23 Review of Systems Sugical H&P ROS: Negative: Constitution, Cardiovascular and Respiratory and Yes, Specify: Gastrointestinal (GERD, dysphagia) Exam Surgical H&P Exam: Normal: Heart, Normal: Lungs, Normal: Extremities and Normal: Abdomen Plan Diagnosis/Plan: Unchanged I have reviewed the history and physical and performed a pertinent physical examination on my patient. No changes have occurred unless specified.
[2021-09-06 09:45] VITALS: BMI 29.3
[2021-09-06 10:04] VITALS: BP 152/77; PULSE 82; RESP 18; TEMP 36.6; O2SAT 96
--- NOTE | 2021-09-06 10:22 | PM.OP ---
Brief Operative Note Date of Service: 09/06/21 Pre-op diagnosis: GERD, dysphagia, abdominal bloating Post-op diagnosis: other (GERD, gastritis, gastric nodule) Procedure: FLEXIBLE TRANSORAL UPPER GASTROINTESTINAL ENDOSCOPY WITH BIOPSIES AND ESOPHAGEAL BALLOON DILATION Consent: Indications for the procedure and potential complications of bleeding, perforation, reaction to medications and missed diagnosis were discussed with the patient and informed consent was obtained. Instrument: Olympus GIF H 190 mid size upper endoscope Monitoring: Vital signs and clinical assessment, continuous EKG monitoring, Pulse oximetry, Carbon Dioxide monitoring and blood pressure monitoring were done throughout the procedure. Procedure: The patient was placed in the left lateral decubitis position and pre-procedure medications were administered and a bite block was placed. The endoscope was inserted into the mouth and advanced under direct vision to the third part of duodenum. A careful inspection was made as the upper endoscope was withdrawn including a retroflexed examination of the proximal stomach; Findings and interventions are described below. Findings: Larynx: Normal Esophagus: Mildly tortuous esophagus without stricture or ring. GE junction at 36 cms. No esophagitis or Chávez's. Balloon dilation of LES was performed with a 16.5 mm CRE balloon x 60 seconds. Dilation of UES was performed with a 15 mm CRE balloon x 60 seconds Stomach: Prominent gastric folds - biopsied. A 7-8 mm benign appearing nodule in the pre-pyloric area - biopsied. Mild gastric erythema. Biopsies were obtained. Grade 2 flap valve on retroflexed examination of the cardia. Duodenum: Normal bulb and descending duodenum. Biopsies were obtained from 3rd part of the duodenum to check for celiac sprue. Intervention: Biopsies and esophageal balloon dilation as noted above Impression and Post Procedure Diagnosis: Endoscopy Findings: ESOPHAGUS: Mildly tortuous esophagus without stricture or ring. GE junction at 36 cms. No esophagitis or Chávez's. Balloon dilation of LES was performed with a 16.5 mm CRE balloon x 60 seconds. Dilation of UES was performed with a 15 mm CRE balloon x 60 seconds STOMACH: Prominent gastric folds - biopsied. A 7-8 mm benign appearing nodule in the pre-pyloric area - biopsied. Mild gastric erythema. Biopsies were obtained. DUODENUM: Normal - biopsied to check for celiac sprue Plan: Await pathology results Patient has an appointment on 09/30/21 in the GI Clinic with Delicia Soni NP. Above findings were reviewed with the patient and GERD handout was given in the discharge area Surgeon: Mal Bell MD Anesthesia: MAC Was an Sr. Merchandise Planner used for this Procedure?: No Sr. Merchandise Planner: Kelley Power Estimated blood loss (mL): 0 Pathology: other (A. small bowel bxs, R/O celiac B. gastric antrum bxs, R/O H. pylori C. gastric nodules D. gastric fold) Condition: stable Disposition: PACU
[2021-09-06 10:23] LABS: Glucose, Whole Blood 182 mg/dL (60-115)
[2021-09-06] MEDS: Lactated Ringers 1,000 ML 100 ML IVCONT (10:24)
[2021-09-06] MEDS: Metoclopramide HCl 10 MG/2 ML VIAL IVPUSH (10:53)
[2021-09-06 12:06] VITALS: BP 95/61; PULSE 79; RESP 16; TEMP 36.1; O2SAT 94
[2021-09-06 12:20] VITALS: BP 104/73; PULSE 77; RESP 16; O2SAT 95
[2021-09-06 12:35] VITALS: BP 119/86; PULSE 80; RESP 16; TEMP 36.1; O2SAT 95
[2021-09-06 12:48] VITALS: BP 130/86; PULSE 82; RESP 16; TEMP 36.1; O2SAT 95
--- NOTE | 2021-09-06 17:10 | P.OP_ITS ---
Operative Note Operative Note Date of Service: 09/06/21 Narrative: Pre-op diagnosis: GERD, dysphagia, abdominal bloating Post-op diagnosis:?other (GERD, gastritis, gastric nodule) Procedure: FLEXIBLE TRANSORAL UPPER GASTROINTESTINAL ENDOSCOPY WITH BIOPSIES AND ESOPHAGEAL BALLOON DILATION Consent:?Indications for the procedure and potential complications of bleeding, perforation, reaction to medications and missed diagnosis were discussed with the patient and informed consent was obtained. Instrument:?Olympus GIF H 190 mid size upper endoscope Monitoring: Vital signs and clinical assessment, continuous EKG monitoring, Pulse oximetry, Carbon Dioxide monitoring and blood pressure monitoring were done throughout the procedure. Procedure:?The patient was placed in the left lateral decubitis position and pre-procedure medications were administered and a bite block was placed. The endoscope was inserted into the mouth and advanced under direct vision to the third part of duodenum. A careful inspection was made as the upper endoscope was withdrawn including a retroflexed examination of the proximal stomach; Findings and interventions are described below. Findings: Larynx:? Normal Esophagus: Mildly tortuous esophagus without stricture or ring. GE junction at 36 cms. No esophagitis or Chávez's. Balloon dilation of LES was performed with a 16.5 mm CRE balloon x 60 seconds. Dilation of UES was performed with a 15 mm CRE balloon x 60 seconds Stomach: Prominent gastric folds - biopsied.? A 7-8 mm benign appearing nodule in the pre-pyloric area - biopsied.? Mild gastric erythema. Biopsies were obtained. Grade 2 flap valve on retroflexed examination of the cardia. Duodenum: Normal bulb and descending duodenum. Biopsies were obtained from 3rd part of the duodenum to check for celiac sprue. Intervention: Biopsies and esophageal balloon dilation as noted above Impression and Post Procedure Diagnosis: Endoscopy Findings: ESOPHAGUS: Mildly tortuous esophagus without stricture or ring. GE junction at 36 cms. No esophagitis or Chávez's. Balloon dilation of LES was performed with a 16.5 mm CRE balloon x 60 seconds. Dilation of UES was performed with a 15 mm CRE balloon x 60 seconds STOMACH: Prominent gastric folds - biopsied.? A 7-8 mm benign appearing nodule in the pre-pyloric area - biopsied.? Mild gastric erythema. Biopsies were obtained. DUODENUM: Normal - biopsied to check for celiac sprue Plan: Await pathology results Patient has an appointment on 09/30/21 in the GI Clinic with? Delicia Soni NP. Above findings were reviewed with the patient and GERD handout was given in the discharge area Surgeon: Mal Bell MD Anesthesia:?MAC Was an Cake Batter Mixer used for this Procedure?:?No Cake Batter Mixer:?Kelley Power Estimated blood loss (mL):?0 Pathology:?other (A. small bowel bxs, R/O celiac? B. gastric antrum bxs, R/O H. pylori? C. gastric nodules? D. gastric fold) Condition:?stable Disposition:?PACU
== END 2021-09-06 13:47 | disposition home or self-care (01) ==
PROVIDERS: PCP Internal Medicine; Visit Provider Internal Medicine Gastroenterology
PROC: 0DJ08ZZ Inspection of Upper Intestinal Tract, Via Natural or Artificial Opening Endoscopic (ICD-10-PCS; CPT 43235; principal; 2021-09-06 10:10)
DX: K21.9 Gastro-esophageal reflux disease without esophagitis (principal); K22.89 Other specified disease of esophagus; K29.50 Unspecified chronic gastritis without bleeding; K31.89 Other diseases of stomach and duodenum; K31.84 Gastroparesis; K58.1 Irritable bowel syndrome with constipation; J45.909 Unspecified asthma, uncomplicated; E11.9 Type 2 diabetes mellitus without complications; E78.5 Hyperlipidemia, unspecified; F41.8 Other specified anxiety disorders; Z79.51 Long term (current) use of inhaled steroids; Z79.899 Other long term (current) drug therapy; Z87.891 Personal history of nicotine dependence
CPT/HCPCS: 43249; 43239; 82947; 88305; 88342; C1726; J2765

== ENCOUNTER 2021-09-12 13:40 | Emergency (ER) | payer OTHER, SELFPAY ==
--- NOTE | 2021-09-12 | ECG_ITS ---
Test Reason : SHORTNESS OF BREATH Blood Pressure : / mmHG Vent. Rate : 098 BPM Atrial Rate : 098 BPM P-R Int : 128 ms QRS Dur : 066 ms QT Int : 342 ms P-R-T Axes : 031 004 006 degrees QTc Int : 436 ms Normal sinus rhythm Normal ECG When compared with ECG of 03-DEC-2019 16:18, No significant change was found Referred By: Generic ED Physician Electronically Signed By:Gavin Powell
--- NOTE | ~2021-09-12 | XR_ITS ---
EXAMINATION: XR CHEST CLINICAL INFORMATION: Cough COMPARISON: Chest x-ray 08/18/2020 TECHNIQUE: Frontal view of the chest was obtained. FINDINGS: No significant abnormality is noted involving the heart, lungs, mediastinum, bony thorax or soft tissues. XR/XR chest 1V IMPRESSION: Unremarkable examination.
[2021-09-12 13:47] VITALS: BP 137/81; PULSE 105; RESP 22; TEMP 36.6; O2SAT 95; BMI 29.2
[2021-09-12 17:15] LABS: MANUAL DIFF FLAG NO
[2021-09-12 17:19] LABS: Basophils Absolute Auto 0.1 X10*3/uL (0.0-0.2); Basophils Percent Auto 0.5 % (0-2); Eosinophils Absolute Auto 1.1 X10*3/uL (0.0-0.4); Eosinophils Percent Auto 9.6 % (0-4); Hematocrit 44.4 % (42.0-52.0); Hemoglobin 14.3 g/dl (14.0-18.0); Imm Gran Abs Auto 0.05 X10*3/uL (0.00-0.03); Imm Gran Pct Auto 0.4 % (0.0-0.4); Lymphocytes Absolute Auto 2.9 X10*3/uL (1.2-4.9); Lymphocytes Percent Auto 24.6 % (20-40); Mean Corpuscular HGB Conc 32.2 g/dl (31.0-36.0); Mean Corpuscular Hemoglobin 28.8 pg (27.0-33.0); Mean Corpuscular Volume 89.5 fL (80.0-98.0); Mean Platelet Volume 8.9 fL (9.4-12.4); Monocytes Absolute Auto 1.1 X10*3/uL (0.1-1.2); Monocytes Percent Auto 9.1 % (2-11); Neutrophils Absolute Auto 6.5 x10*3/uL (2.0-8.3); Neutrophils Percent Auto 55.8 % (45-73); Platelet Count 225 X10*3/uL (160-400); Red Blood Count 4.96 X10*6/uL (4.60-5.80); Red Cell Distribution Width 15.1 % (11.0-16.0); White Blood Count 11.7 X10*3/uL (4.8-10.8)
[2021-09-12 17:30] LABS: COVID-19 Test Negative (Negative); IDNOW Serial# 55D5AD1C
[2021-09-12 17:49] LABS: Alanine Aminotransferase 29 U/L (0-40); Albumin Level 4.4 g/dL (3.5-5.0); Alkaline Phosphatase 69 U/L (39-117); Anion Gap 16 (12-20); Aspartate Amino Transferase 26 U/L (5-37); Bilirubin Total 0.2 mg/dL (0.0-1.0); Blood Urea Nitrogen 19 mg/dL (9-16); Calcium 9.1 mg/dL (8.4-10.2); Carbon Dioxide 20 mmol/L (22-29); Chloride 106 mmol/L (96-108); Creatinine Clr Calc Pharmacy 65.5; Estimated Glomerular Filt Rate 57; Glucose Random 207 mg/dL (60-115); Potassium 4.7 mmol/L (3.3-5.1); Sodium 137 mmol/L (135-145); Total Protein 8.4 g/dL (6.5-8.0)
[2021-09-13 02:00] VITALS: BP 103/78; PULSE 79; RESP 21; O2SAT 96
--- NOTE | 2021-09-13 02:39 | ED_ITS ---
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 patient otherwise declined any fever chills, patient decline active smoking. No sick contacts, basin otherwise do not feel sick, patient ran out of his albuterol for the nebulizer at home. Related Data Home Medications Medication Instructions Recorded Confirmed fluticasone 250 mcg-salmeterol 50 1 inh inhalation BID 12/04/19 01/17/21 mcg/dose blistr powdr for inhalation (Advair Diskus) loratadine 10 mg tablet 10 mg PO DAILY 12/04/19 01/17/21 lorazepam 0.5 mg tablet 0.5 mg PO QID PRN Anxiety 12/04/19 01/17/21 metformin 1,000 mg tablet 1,000 mg PO BID 12/04/19 05/05/21 montelukast 10 mg tablet 10 mg PO BEDTIME 12/04/19 01/17/21 sertraline 100 mg tablet 100 mg PO DAILY 12/04/19 01/17/21 atorvastatin 20 mg tablet 20 mg PO DAILY 07/06/20 05/05/21 gabapentin 300 mg capsule 300 mg PO 07/06/20 01/17/21 pioglitazone 30 mg tablet 30 mg PO DAILY 07/06/20 05/05/21 diphenhydramine HCl 25 mg capsule 25 mg PO DAILY PRN 09/08/20 01/17/21 eszopiclone 3 mg tablet 3 mg PO BEDTIME PRN insomnia 09/08/20 01/17/21 acetaminophen 300 mg-codeine 30 mg 1 tab PO Q6H PRN 11/11/20 01/17/21 tablet alcohol swabs (Alcohol Prep Pads) 1 pad topical QID 11/11/20 01/17/21 aspirin 81 mg tablet,delayed 81 mg PO DAILY 11/11/20 01/17/21 release blood sugar diagnostic (FreeStyle #10 ea 11/11/20 01/17/21 Lite Strips) furosemide 20 mg tablet 20 mg PO QAM 11/11/20 01/17/21 pen needle, diabetic 31 gauge x #1,200 ea 11/11/20 01/17/21/16 (UltiCare Pen Needle) nabumetone 500 mg tablet 500 mg PO BID PRN 01/17/21 01/17/21 Previous Rx's Medication Instructions Recorded albuterol sulfate 0.63 mg/3 mL 0.63 mg (3 mL) inhalation QID PRN 12/03/19 solution for nebulization shortness of breath or wheezing #75 mL albuterol sulfate 90 mcg/actuation 1 inh inhalation Q6H PRN shortness 12/03/19 aerosol inhaler of breath or wheezing #8.5 grams cyclobenzaprine 10 mg tablet 10 mg PO TID #20 tabs 11/03/20 terbinafine HCl 1 % topical cream 1 appl topical BID #15 grams 01/17/21 (Antifungal (terbinafine)) metoclopramide HCl 10 mg tablet 10 mg PO .TIDAC #90 tabs 04/25/21 (Reglan) pantoprazole 40 mg tablet,delayed 40 mg PO QAM #30 tabs 04/25/21 release simethicone 180 mg capsule 180 mg PO QID PRN abdominal 04/25/21 distention #90 caps blood sugar diagnostic (FreeStyle #100 ea 05/05/21 Lite Strips) insulin glargine 100 unit/mL (3 36 unit (0.36 mL) subcut QPM 90 05/05/21 mL) subcutaneous pen days #32.4 mL lancets 28 gauge (FreeStyle #100 ea 05/05/21 Lancets) empagliflozin 25 mg tablet 25 mg PO QAM #30 tabs 08/10/21 (Jardiance) repaglinide 0.5 mg tablet 0.5 mg PO TID #90 tabs 08/10/21 albuterol sulfate 2.5 mg/3 mL 2.5 mg (3 mL) inhalation QID PRN 09/13/21 (0.083 %) solution for nebulization shortness of breath or wheezing #75 mL albuterol sulfate 90 mcg/actuation 2 inh inhalation Q6H PRN shortness 09/13/21 breath activated powder inhaler of breath or wheezing #1 ea prednisone 20 mg tablet 20 mg PO BID #10 tabs 09/13/21 Allergies Allergy/AdvReac Type Severity Reaction Status Date / Time No Known Allergies Allergy Verified 05/27/21 12:23 Review of Systems Review of Systems: All other systems are reviewed and are negative Constitutional: Reports as per HPI and Reports no additional constitutional complaints Eyes: Reports as per HPI and Reports no additional eye complaints Reports system reviewed and no additional complaints, except as documented Cardiovascular: Reports as per HPI and Reports no additional cardiovascular complaints Respiratory: Reports as per HPI and Reports no additional respiratory complaints Gastrointestinal: Reports as per HPI and Reports no additional gastrointestinal complaints Genitourinary: Reports no additional female genitourinary complaints Musculoskeletal: Reports no additional musculoskeletal complaints Skin/Breast: Reports system reviewed and no additional complaints, except as docu Psychiatric: Reports no additional psychiatric complaints Endocrine: Reports no additional endocrine complaints Hematologic/Lymphatic: Reports no additional hematologic/lymphatic complaints Allergic/Immunologic: Reports no additional allergic/immunologic complaints Reports system reviewed and no additional complaints, except as documented and Reports Abnormal speech present [facility] Past Medical History Medical History Anxiety Asthma Bronchitis Chronic GERD Depression Diabetes HTN (hypertension) Hyperlipidemia Surgical History Hx of colonoscopy Hx of esophagogastroduodenoscopy Hx of hernia repair Hx of repair of rotator cuff Hx of toe surgery Family History Family History Father No problems noted. Mother Hx of breast cancer Sister Diabetes Maternal Aunt Heart problem Social History Social History Household Members: Spouse Alcohol intake: unknown Patient Tobacco Use Status: Former Tobacco user Years Smoked: 20 yrs ( quit 8 years ago) Second Hand Smoke Exposure: Yes Advance Directives: No Physical Exam Vital Signs: Vital Signs: Last Vital Signs Temp 97.8 F 09/12/21 13:47 Pulse 113 H 09/13/21 03:56 Resp 17 09/13/21 03:56 BP 128/70 09/13/21 03:56 Pulse Ox 94 09/13/21 03:56 O2 Del Method 09/13/21 03:56 BMI result Body Mass Index 29.2 vital signs have been reviewed as appeared to be correct. Blood pressure normal. Heart rate normal. Respiration rate normal. Temperature normal. Oxygen saturation normal. Appearance: Alert. Oriented X3. mild respiratory acute distress. Head: Normal external exam. Normocephalic. Atraumatic. No Parra signs noted. No raccoon eyes noted Eyes: PERRLA. EOMI. Conjunctiva and sclera normal. Eyelids normal. ENT: TM's Normal. Pharynx normal. Uvula midline. Moist mucous membranes. No trismus noted. No drooling noted. No muffled voice noted. Neck: Normal inspection. Neck supple. FROM. No adenopathy. Thyroid Normal. No meningeal signs. No neck mass noted. CVS: Normal heart rate and rhythm. Heart sound normal. No murmurs noted. Pulses normal throughout. Respiratory: Mild respiratory distress. Painless inspiration. Breath sounds normal. mild diffuse expiratory wheezing with prolonged expiration. Chest nontender. No accessory muscle usage noted or decreased air movement noted. Abdomen: Soft and nontender. Bowel sounds normal in all 4 quadrants. No distention noted. No organomegaly noted. No visible injury noted. Back: No CVA tenderness. Full range of motion noted. Skin: Skin warm and dry. Normal skin color. Normal skin turgor. No rashes/lesions/lacerations noted. Extremities: No lower extremity edema. Extremities exhibit normal range of motion. Extremities nontender. Neuro: Oriented X 3. Cranial nerve exam: II-XII are grossly intact No motor deficit. No sensory deficit. Reflexes normal. Course Course Course Narrative: acute asthma exacerbation patient ran out of his medication. Patient received bronchodilator and steroid in the emergency department improved patient's symptoms. Will discharge with prescription for bronchodilator/ prednisone. MDM - SOB/Dyspnea Lab Data Attestation: I reviewed the patient's lab results. Result diagrams: 09/12/21 17:08 09/12/21 17:08 Labs: Lab Results 09/12/21 09/12/21 09/12/21 Range/Units 17:08 17:08 17:08 WBC 11.7 H (4.8-10.8) X10*3/uL RBC 4.96 (4.60-5.80) X10*6/uL Hgb 14.3 (14.0-18.0) g/dl Hct 44.4 (42.0-52.0) % MCV 89.5 (80.0-98.0) fL MCH 28.8 (27.0-33.0) pg MCHC 32.2 (31.0-36.0) g/dl RDW 15.1 (11.0-16.0) % Plt Count 225 (160-400) X10*3/uL MPV 8.9 L (9.4-12.4) fL Immature Gran % (Auto) 0.4 (0.0-0.4) % Neut % (Auto) 55.8 (45-73) % Lymph % (Auto) 24.6 (20-40) % Levy % (Auto) 9.1 (2-11) % Eos % (Auto) 9.6 H (0-4) % Baso % (Auto) 0.5 (0-2) % Lymph # (Auto) 2.9 (1.2-4.9) X10*3/uL Levy # (Auto) 1.1 (0.1-1.2) X10*3/uL Eos # (Auto) 1.1 H (0.0-0.4) X10*3/uL Baso # (Auto) 0.1 (0.0-0.2) X10*3/uL Abs Immat Gran (auto) 0.05 H (0.00-0.03) X10*3/uL Absolute Neuts (auto) 6.5 (2.0-8.3) x10*3/uL Absolute Nucleated RBC 0.000 (0.0-0.012) X10*3/uL Nucleated RBC % (auto) 0.0 (0.0-0.2) /100WBC Sodium 137 (135-145) mmol/L Potassium 4.7 (3.3-5.1) mmol/L Chloride 106 (96-108) mmol/L Carbon Dioxide 20 L (22-29) mmol/L Anion Gap 16 (12-20) BUN 19 H (9-16) mg/dL Creatinine 1.28 (0.5-1.4) mg/dL Estim Creat Clear Calc 65.5 Estimated GFR 57 Random Glucose 207 H (60-115) mg/dL Calcium 9.1 (8.4-10.2) mg/dL Total Bilirubin 0.2 (0.0-1.0) mg/dL AST 26 (5-37) U/L ALT 29 (0-40) U/L Alkaline Phosphatase 69 D (39-117) U/L Total Protein 8.4 H (6.5-8.0) g/dL Albumin 4.4 (3.5-5.0) g/dL COVID-19 (JOSHUA) Negative (Negative) COVID-19 Clin Com See Note Imaging Data Chest x-ray: Attestation: I personally reviewed and interpreted this imaging study as follows: Radiologist's impression: Unremarkable chest x-ray Discharge Plan Discharge Clinical Impression: Asthma with exacerbation Patient Disposition: Home, Self-Care Instructions: Asthma (ED) Prescriptions: New albuterol sulfate 90 mcg/actuation aerosol powdr breath activated 2 inh inhalation Q6H PRN (Reason: shortness of breath or wheezing) Qty: 1 0RF albuterol sulfate 2.5 mg /3 mL (0.083 %) solution for nebulization 2.5 mg inhalation QID PRN (Reason: shortness of breath or wheezing) Qty: 75 0RF prednisone 20 mg tablet 20 mg PO BID Qty: 10 0RF No Action Jardiance 25 mg tablet 25 mg PO QAM Qty: 30 7RF repaglinide 0.5 mg tablet 0.5 mg PO TID Qty: 90 7RF fluticasone propion-salmeterol [Advair Diskus] 250-50 mcg/dose Blister With Device 1 inh INHALATION BID sertraline 100 mg Tablet 100 mg PO DAILY lorazepam 0.5 mg Tablet 0.5 mg PO QID PRN (Reason: Anxiety) metformin 1,000 mg Tablet 1,000 mg PO BID montelukast 10 mg Tablet 10 mg PO BEDTIME loratadine 10 mg Tablet 10 mg PO DAILY pioglitazone 30 mg tablet 30 mg PO DAILY albuterol sulfate 0.63 mg/3 mL solution for nebulization 0.63 mg inhalation QID PRN (Reason: shortness of breath or wheezing) Qty: 75 0RF albuterol sulfate 90 mcg/actuation HFA aerosol inhaler 1 inh inhalation Q6H PRN (Reason: shortness of breath or wheezing) Qty: 8.5 0RF cyclobenzaprine 10 mg tablet 10 mg PO TID Qty: 20 0RF atorvastatin 20 mg tablet 20 mg PO DAILY gabapentin 300 mg capsule 300 mg PO eszopiclone 3 mg tablet 3 mg PO BEDTIME PRN (Reason: insomnia) diphenhydramine HCl 25 mg capsule 25 mg PO DAILY PRN metoclopramide HCl [Reglan] 10 mg tablet 10 mg PO .TIDAC Qty: 90 6RF pantoprazole 40 mg tablet,delayed release (DR/EC) 40 mg PO QAM Qty: 30 6RF simethicone 180 mg capsule 180 mg PO QID PRN (Reason: abdominal distention) Qty: 90 6RF furosemide 20 mg tablet 20 mg PO QAM (DME) pen needle, diabetic [UltiCare Pen Needle] 31 gauge x 5/16 needle See Rx Instructions subcut .MEDSUPPLY Qty: 1200 Rx Instructions: As directed alcohol swabs [Alcohol Prep Pads] Pads, Medicated 1 pad topical QID (DME) FreeStyle Lite Strips Strip See Rx Instructions Not Applicable BID Qty: 10 Rx Instructions: As directed aspirin 81 mg tablet,delayed release (DR/EC) 81 mg PO DAILY acetaminophen-codeine 300-30 mg tablet 1 tab PO Q6H PRN nabumetone 500 mg tablet 500 mg PO BID PRN terbinafine HCl [Antifungal (terbinafine)] 1 % cream 1 appl topical BID Qty: 15 2RF Rx Instructions: for 10 ten days insulin glargine 100 unit/mL (3 mL) insulin pen 36 unit subcut QPM 90 Days Qty: 32.4 1RF (DME) FreeStyle Lite Strips Strip See Rx Instructions .ROUTE .MEDSUPPLY Qty: 100 11RF Rx Instructions: As directed three times a day (DME) lancets [FreeStyle Lancets] 28 gauge misc See Rx Instructions .ROUTE .MEDSUPPLY Qty: 100 11RF Rx Instructions: Three times a day Referrals: Danis Laurent MD [Primary Care Provider] -
[2021-09-13] MEDS: Albuterol Sulfate (0.083%) 2.5 MG/3 ML VIAL.NEB 7.5 MG INHALE (02:44)
[2021-09-13] MEDS: Albuterol/Iprat 2.5/0.5MG 3 ML AMPUL.NEB INHALE (02:44)
[2021-09-13 02:50] VITALS: PULSE 78; RESP 18; O2SAT 97
[2021-09-13] MEDS: Magnesium Sulfate/H2O 2 GM/50 ML PIGGYBACK IV (03:12)
[2021-09-13] MEDS: methylPREDNISolone Sod Succ 125 MG/2 ML VIAL IVPUSH (03:15)
[2021-09-13 03:56] VITALS: BP 128/70; PULSE 113; RESP 17; O2SAT 94
--- NOTE | 2021-09-13 04:57 | PC.NURSE ---
pt a&o, no sob or chest pain. pt reports improvement and has no respiratory distress at this time. Reviewed discharge instruction. pt verbalized understanding.
== END 2021-09-13 05:18 | disposition home or self-care (01) ==
PROVIDERS: Emergency Provider Emergency Medicine; PCP Internal Medicine
DX: J45.901 Unspecified asthma with (acute) exacerbation (principal); Z79.02 Long term (current) use of antithrombotics/antiplatelets; Z79.899 Other long term (current) drug therapy; Z79.82 Long term (current) use of aspirin; Z79.4 Long term (current) use of insulin; Z87.891 Personal history of nicotine dependence
CPT/HCPCS: 36415; 71045; 80053; 85025; 87635; 93005; 94640; 94644; 96365; 96366; 96375; 99284; 99285; J2930; J3475

== ENCOUNTER 2021-10-11 07:54 | Inpatient (IN) | payer OTHER, SELFPAY ==
[2021-10-11] VITALS (7 sets, daily range): BP systolic 96–129; BP diastolic 56–81; PULSE 94–109; RESP 16–22; TEMP 36.3–36.7; O2SAT 90–95; BMI 29.2
--- NOTE | ~2021-10-11 | XR_ITS ---
EXAMINATION: XR CHEST CLINICAL INFORMATION: Cough and wheezing COMPARISON: 09/12/2021 TECHNIQUE: 2 views of the chest were obtained. FINDINGS: There is minor bibasilar atelectasis which could reflect early pneumonia. Upper lungs clear. Heart and pulmonary vessels are normal and there are no pleural effusions. Postsurgical changes in the right and left shoulder are noted. XR/XR chest 2V IMPRESSION: Query early bibasilar pneumonitis.
--- NOTE | 2021-10-11 08:29 | ED.ASTHMA ---
HPI - Asthma General Chief Complaint: Asthma Stated Complaint: asthma , sob, pain in L side Time Seen by Provider: 10/11/21 08:20 Source: patient Mode of arrival: ambulatory Limitations: language barrier ([place]-speaking) History of Present Illness HPI Narrative: 61-year-old male who is [place]-speaking with a past medical history of IBS, anxiety, depression, GERD, diabetes and asthma who is presenting to the ED today with complaints of cough with yellow/white color sputum production with associated wheezing/shortness of breath over the past week despite using his albuterol inhaler/albuterol nebulizers. Reports that he was seen here on 09/13/2021 for similar complaint and was offered admission at that time although declined. Reports he was doing much better after he was discharged here. He denies any fevers, chills, dizziness, headaches, neck pain/stiffness, sore throat, loss of taste or smell, nasal congestion/rhinorrhea, chest pain, dyspnea on exertion, orthopnea, palpitations, paresthesias, nausea/vomiting/diarrhea constipation, black or bloody stools, lower extremity edema or calf tenderness, recent travel or sick contacts or any other symptoms complaints or concerns at this time. He reports he has been hospitalized in the past for his asthma but has never been intubated. MD complaint: asthma attack , shortness of breath and wheezing Onset (ago): week(s) (1) Severity: severe and worse than usual Context: none known Associated symptoms: productive cough Asthma History: childhood onset, history of frequent attacks and history of prior ED visit Treatments Prior to Arrival: inhaled bronchodilator Related Data Current Asthma Therapy: inhaled bronchodilator Home Medications Medication Instructions Recorded Confirmed loratadine 10 mg tablet 10 mg PO DAILY 12/04/19 01/17/21 lorazepam 0.5 mg tablet 0.5 mg PO DAILY 12/04/19 01/17/21 metformin 1,000 mg tablet 1,000 mg PO BID 12/04/19 05/05/21 montelukast 10 mg tablet 10 mg PO DAILY 12/04/19 01/17/21 sertraline 100 mg tablet 200 mg PO DAILY 12/04/19 01/17/21 atorvastatin 20 mg tablet 20 mg PO BEDTIME 07/06/20 05/05/21 gabapentin 300 mg capsule 300 mg PO BID 07/06/20 01/17/21 pioglitazone 30 mg tablet 30 mg PO DAILY@1200 07/06/20 05/05/21 eszopiclone 3 mg tablet 3 mg PO BEDTIME PRN insomnia 09/08/20 01/17/21 aspirin 81 mg tablet,delayed 81 mg PO DAILY 11/11/20 01/17/21 release blood sugar diagnostic (FreeStyle #10 ea 11/11/20 01/17/21 Lite Strips) pen needle, diabetic 31 gauge x #1,200 ea 11/11/20 01/17/2107/11 (UltiCare Pen Needle) empagliflozin 25 mg tablet 25 mg PO DAILY 10/11/21 (Jardiance) insulin glargine 100 unit/mL (3 36 unit subcut BEDTIME 10/11/21 mL) subcutaneous pen metoclopramide HCl 10 mg tablet 10 mg PO TIDAC 10/11/21 (Reglan) pantoprazole 40 mg tablet,delayed 40 mg PO DAILY@0630 10/11/21 release sennosides 8.6 mg tablet (senna) 2 tab PO BEDTIME constipation 10/11/21 Previous Rx's Medication Instructions Recorded simethicone 180 mg capsule 180 mg PO QID PRN abdominal 04/25/21 distention #90 caps blood sugar diagnostic (FreeStyle #100 ea 05/05/21 Lite Strips) lancets 28 gauge (FreeStyle #100 ea 05/05/21 Lancets) repaglinide 0.5 mg tablet 0.5 mg PO TID #90 tabs 08/10/21 albuterol sulfate 2.5 mg/3 mL 2.5 mg (3 mL) inhalation QID PRN 09/13/21 (0.083 %) solution for nebulization shortness of breath or wheezing #75 mL albuterol sulfate 90 mcg/actuation 2 inh inhalation Q6H PRN shortness 09/13/21 breath activated powder inhaler of breath or wheezing #1 ea Allergies Allergy/AdvReac Type Severity Reaction Status Date / Time No Known Allergies Allergy Verified 05/27/21 12:23 Review of Systems Review of Systems: Constitutional : denies med noncompliance, no history of PE or DVT, denies recent travel, No Fever, No Chills ENT/Mouth : No Hoarseness, No sore throat, No Rhinorrhea, No Nasal congestion, No Sinus Pressure, No Ear Pain, No stridor, Eyes: No Redness, No Discharge, No Vision Changes Cardiovascular : No Chest Pain, + SOB, No Dyspnea on Exertion, No Edema, no pleurisy, Respiratory : + Cough, + wheezing, + Sputum, no stridor, no hemoptysis, Gastrointestinal : No Nausea, No Vomiting, No Diarrhea, No abdominal Pain Genitourinary : No Dysuria, No Hematuria Musculoskeletal : No joint pain/swelling, No Myalgias Extremities: no extremity swelling /pain Skin : No rash, no itching, no swelling Neuro : No Weakness, No Numbness, No Headache, No Dizziness, No Paresthesias Psych : No anxiety, depression Heme/Lymph: No Bruising, No Bleeding Endocrine : No Polyuria, No Polydipsia Yes all other systems are reviewed and are negative [facility] Past Medical History Attestation statement: The following information was validated with the patient. Source: old records reviewed and nursing notes reviewed Medical History Anxiety Asthma Bronchitis Chronic GERD Depression Diabetes HTN (hypertension) Hyperlipidemia Surgical History Hx of colonoscopy Hx of esophagogastroduodenoscopy Hx of hernia repair Hx of repair of rotator cuff Hx of toe surgery Family History Family History Father No problems noted. Mother Hx of breast cancer Sister Diabetes Maternal Aunt Heart problem Social History Social History Household Members: Spouse Alcohol intake: unknown Patient Tobacco Use Status: Former Tobacco user Years Smoked: 20 yrs ( quit 8 years ago) Second Hand Smoke Exposure: Yes Advance Directives: No Advance Directives Information Provided: Yes Physical Exam Vital Signs: Vital Signs: Last Vital Signs Temp 98.1 F 10/11/21 11:30 Pulse 109 H 10/11/21 11:30 Resp 20 10/11/21 11:30 BP 100/56 L 10/11/21 11:30 Pulse Ox 92 10/11/21 11:30 O2 Del Method 10/11/21 11:30 BMI result Body Mass Index 29.2 vital signs have been reviewed Blood pressure normal. Heart rate normal. Respiration normal. Oxygen saturation 94% Appearance: Alert. Oriented X3. And mild acute respiratory distress otherwise no other acute distress. Head: Normal external exam. Normocephalic. Atraumatic. Eyes: PERRLA. EOMI. Conjunctiva and sclera normal. Eyelids normal. ENT: EAC normal. TM's Normal. Pharynx normal. Uvula midline. Moist mucous membranes. No trismus noted. No drooling noted. No muffled voice noted. No stridor noted. Patient tolerating secretions well. Neck: Normal inspection. Neck supple. FROM. No adenopathy. Thyroid Normal. No meningeal signs. No neck mass noted. CVS: Normal heart rate and rhythm. Heart sound normal. Pulses normal throughout. No murmurs/rales/gallops. Respiratory: In mild acute respiratory distress with decreased breath sounds and inspiratory and expiratory wheezing throughout with pain on inspiration. No rales/rhonchi noted. No accessory muscle use is noted. No abdominal retractions noted. Chest nontender. Normal chest excursions noted. Abdomen: Soft and nontender. Bowel sounds normal in all 4 quadrants. No distention noted. No organomegaly noted. No visible injury noted. Back: No CVA tenderness. Full range of motion noted. No rashes/lesion/induration/fluctuance or signs of infection noted. Skin: Skin warm and dry. Normal skin color. Normal skin turgor. No rashes/lesions/lacerations noted. Extremities: No lower extremity edema. No calf tenderness is noted. Extremities exhibit normal range of motion. Extremities nontender. Neuro: Oriented X 3. No motor deficit. No sensory deficit. Reflexes normal. Normal steady gait. No focal neuro deficits noted. Vascular: + radial pulses/+ 2 distal pedal pulses/+2 dorsalis pedis b/l. Normal cap refill. No cyanosis noted to upper extremity nails and lower extremity toes nails. Course Course Course Narrative: 8:25am - 61-year-old male who is [place]-speaking with a past medical history of IBS, anxiety, depression, GERD, diabetes and asthma who is presenting to the ED today with complaints of cough with yellow/white color sputum production with associated wheezing/shortness of breath over the past week despite using his albuterol inhaler/albuterol nebulizers. He reports he has been hospitalized in the past for his asthma but has never been intubated. Plan: Will obtain labs, COVID swab, chest x-ray. Provide IV fluids, 125 mg of Solu-Medrol and 2 g of magnesium and re-evaluate. Reevaluation(s) Reevaluation #1: - Labs reviewed and patient with a random glucose of 134. Otherwise all other labs are within normal limits at this time. Patient negative for COVID. - Chest x-ray revealed questioning early bibasilar pneumonia. - I perform ambulatory pulse oximetry test and patient's oxygen states between 90-92% when he walks. At baseline he is at 90-90% on room air. - therefore due to being the patient's 2nd visit in less than 30 days for same complaint and having a possible pneumonia on x-ray will obtain blood cultures and lactic acid provide IV antibiotics with 1 g of Rocephin and plan to possibly admit. Patient understands agrees with this plan. Time: 10:15 Reevaluation #2: - lactic acid 4.8. - although this is most likely related to the patient's albuterol updraft treatment and metformin medication at home and here in the emergency department not consistent with septic shock. Time: 11:29 [facility] - Asthma Medical Records Attestation: I reviewed the patient's medical records. Lab Data Attestation: I reviewed the patient's lab results. Result diagrams: 10/11/21 08:32 10/11/21 08:32 Labs: Lab Results 10/11/21 10/11/2122 Range/Units 08:32 08:32 08:32 WBC 9.1 (4.8-10.8) X10*3/uL RBC 4.87 (4.60-5.80) X10*6/uL Hgb 14.0 (14.0-18.0) g/dl Hct 44.1 (42.0-52.0) % MCV 90.6 (80.0-98.0) fL MCH 28.7 (27.0-33.0) pg MCHC 31.7 (31.0-36.0) g/dl RDW 14.4 (11.0-16.0) % Plt Count 213 (160-400) X10*3/uL MPV 8.9 L (9.4-12.4) fL Immature Gran % (Auto) 0.7 H (0.0-0.4) % Neut % (Auto) 44.8 L (45-73) % Lymph % (Auto) 30.4 (20-40) % [place] % (Auto) 11.6 H (2-11) % Eos % (Auto) 11.8 H (0-4) % Baso % (Auto) 0.7 (0-2) % Lymph # (Auto) 2.8 (1.2-4.9) X10*3/uL [place] # (Auto) 1.1 (0.1-1.2) X10*3/uL Eos # (Auto) 1.1 H (0.0-0.4) X10*3/uL Baso # (Auto) 0.1 (0.0-0.2) X10*3/uL Abs Immat Gran (auto) 0.06 H (0.00-0.03) X10*3/uL Absolute Neuts (auto) 4.1 (2.0-8.3) x10*3/uL Absolute Nucleated RBC 0.000 (0.0-0.012) X10*3/uL Nucleated RBC % (auto) 0.0 (0.0-0.2) /100WBC Sodium 138 (135-145) mmol/L Potassium 4.4 (3.3-5.1) mmol/L Chloride 103 (96-108) mmol/L Carbon Dioxide 22 (22-29) mmol/L Anion Gap 17 (12-20) BUN 15 (9-16) mg/dL Creatinine 1.33 (0.5-1.4) mg/dL Estim Creat Clear Calc 62.9 Estimated GFR 54 Random Glucose 340 H D (60-115) mg/dL Lactic Acid (0.5-2.0) mmol/L Calcium 9.1 (8.4-10.2) mg/dL Magnesium 2.0 (1.6-2.6) mg/dL Total Bilirubin 0.2 (0.0-1.0) mg/dL AST 22 (5-37) U/L ALT 28 (0-40) U/L Alkaline Phosphatase 73 (39-117) U/L Total Protein 7.7 (6.5-8.0) g/dL Albumin 4.0 (3.5-5.0) g/dL COVID-19 (JOSHUA) Negative (Negative) COVID-19 Clin Com See Note 10/11/21 Range/Units 11:07 WBC (4.8-10.8) X10*3/uL RBC (4.60-5.80) X10*6/uL Hgb (14.0-18.0) g/dl Hct (42.0-52.0) % MCV (80.0-98.0) fL MCH (27.0-33.0) pg MCHC (31.0-36.0) g/dl RDW (11.0-16.0) % Plt Count (160-400) X10*3/uL MPV (9.4-12.4) fL Immature Gran % (Auto) (0.0-0.4) % Neut % (Auto) (45-73) % Lymph % (Auto) (20-40) % [place] % (Auto) (2-11) % Eos % (Auto) (0-4) % Baso % (Auto) (0-2) % Lymph # (Auto) (1.2-4.9) X10*3/uL [place] # (Auto) (0.1-1.2) X10*3/uL Eos # (Auto) (0.0-0.4) X10*3/uL Baso # (Auto) (0.0-0.2) X10*3/uL Abs Immat Gran (auto) (0.00-0.03) X10*3/uL Absolute Neuts (auto) (2.0-8.3) x10*3/uL Absolute Nucleated RBC (0.0-0.012) X10*3/uL Nucleated RBC % (auto) (0.0-0.2) /100WBC Sodium (135-145) mmol/L Potassium (3.3-5.1) mmol/L Chloride (96-108) mmol/L Carbon Dioxide (22-29) mmol/L Anion Gap (12-20) BUN (9-16) mg/dL Creatinine (0.5-1.4) mg/dL Estim Creat Clear Calc Estimated GFR Random Glucose (60-115) mg/dL Lactic Acid 4.8 H* (0.5-2.0) mmol/L Calcium (8.4-10.2) mg/dL Magnesium (1.6-2.6) mg/dL Total Bilirubin (0.0-1.0) mg/dL AST (5-37) U/L ALT (0-40) U/L Alkaline Phosphatase (39-117) U/L Total Protein (6.5-8.0) g/dL Albumin (3.5-5.0) g/dL COVID-19 (JOSHUA) (Negative) COVID-19 Clin Com Imaging Data Chest x-ray: Attestation: I personally reviewed and interpreted this imaging study as follows: Radiologist's impression: FINDINGS: There is minor bibasilar atelectasis which could reflect early pneumonia. Upper lungs clear. Heart and pulmonary vessels are normal and there are no pleural effusions. Postsurgical changes in the right and left shoulder are noted. XR/XR chest 2V IMPRESSION: Query early bibasilar pneumonitis. Critical Care Time Critical Care Time Critical Care Time: Yes Total Critical Care Time: 60 Attestation: I personally attest to this time spent taking care of the patient Discharge Plan Discharge Clinical Impression: Acute bronchitis with asthma with acute exacerbation, Acute bronchospasm, Pneumonia Patient Disposition: Admitted As Inpatient
[2021-10-11 08:36] LABS: MANUAL DIFF FLAG NO
[2021-10-11 08:40] LABS: Basophils Absolute Auto 0.1 X10*3/uL (0.0-0.2); Basophils Percent Auto 0.7 % (0-2); Eosinophils Absolute Auto 1.1 X10*3/uL (0.0-0.4); Eosinophils Percent Auto 11.8 % (0-4); Hematocrit 44.1 % (42.0-52.0); Imm Gran Abs Auto 0.06 X10*3/uL (0.00-0.03); Imm Gran Pct Auto 0.7 % (0.0-0.4); Lymphocytes Absolute Auto 2.8 X10*3/uL (1.2-4.9); Lymphocytes Percent Auto 30.4 % (20-40); Mean Corpuscular HGB Conc 31.7 g/dl (31.0-36.0); Mean Corpuscular Hemoglobin 28.7 pg (27.0-33.0); Mean Corpuscular Volume 90.6 fL (80.0-98.0); Mean Platelet Volume 8.9 fL (9.4-12.4); Monocytes Absolute Auto 1.1 X10*3/uL (0.1-1.2); Monocytes Percent Auto 11.6 % (2-11); Neutrophils Absolute Auto 4.1 x10*3/uL (2.0-8.3); Neutrophils Percent Auto 44.8 % (45-73); Platelet Count 213 X10*3/uL (160-400); Red Blood Count 4.87 X10*6/uL (4.60-5.80); Red Cell Distribution Width 14.4 % (11.0-16.0); White Blood Count 9.1 X10*3/uL (4.8-10.8)
[2021-10-11] MEDS: methylPREDNISolone Sod Succ 125 MG/2 ML VIAL IVPUSH (08:42)
[2021-10-11] MEDS: guaiFEN/Codeine SF 200/20/10ML 10 ML LIQUID PO (08:42)
[2021-10-11] MEDS: Magnesium Sulfate/H2O 2 GM/50 ML PIGGYBACK IV (08:42)
[2021-10-11 08:57] LABS: COVID-19 Test Negative (Negative)
[2021-10-11 08:58] LABS: Alanine Aminotransferase 28 U/L (0-40); Alkaline Phosphatase 73 U/L (39-117); Anion Gap 17 (12-20); Aspartate Amino Transferase 22 U/L (5-37); Bilirubin Total 0.2 mg/dL (0.0-1.0); Blood Urea Nitrogen 15 mg/dL (9-16); Calcium 9.1 mg/dL (8.4-10.2); Carbon Dioxide 22 mmol/L (22-29); Chloride 103 mmol/L (96-108); Creatinine Clr Calc Pharmacy 62.9; Estimated Glomerular Filt Rate 54; Glucose Random 340 mg/dL (60-115); Potassium 4.4 mmol/L (3.3-5.1); Sodium 138 mmol/L (135-145); Total Protein 7.7 g/dL (6.5-8.0)
[2021-10-11] MEDS: 0.9 % Sodium Chloride 1,000 ML 999 ML IVCONT (09:55)
[2021-10-11 11:28] LABS: Lactic Acid 4.8 mmol/L (0.5-2.0)
[2021-10-11] MEDS: 0.9 % Sodium Chloride 2,121 ML 1000 ML IV (11:30)
[2021-10-11] MEDS: cefTRIAXone sodium 1 GM in 0.9 % Sodium Chloride 50 ML IV (11:30)
[2021-10-11 13:12] LABS: Reflex Lactate? Lactic Acid Added
[2021-10-11] MEDS: 0.9 % Sodium Chloride 1,000 ML 100 ML IVCONT (13:30)
--- NOTE | 2021-10-11 13:59 | PM.IMHP ---
History of Present Illness Date of Service: 10/11/21 Chief Complaint: asthma exacerbation, pneumonia 61-year-old male with history of asthma, hyperlipidemia, depression, GERD, and [id number] diabetes presented to the ED this morning for evaluation of productive cough, shortness of breath and wheezing, chest tightness, pleuritic chest pain. He is seen in the ED 1 month ago and recommended for admission for acute asthma exacerbation but declined admission and was treated with oral steroids. States this helped his symptoms somewhat but symptoms worsened about 1 week ago. His requiring the use of his albuterol inhaler multiple times a day with limited improvement in symptoms. He has a remote hospitalization for asthma about 6 years ago but has never been intubated. In the ED, cxr showed bilateral pneumonitis/possible early pneumonia. Has been mildly tachypneic with RR 22 and mildly tachycardic at 109 following duoneb administrations. Lactic acid elevated at 4.8, no leukocytosis. Received 2 fluid bolus IV NS and dose of IV ceftriaxone 1g and IV solumedrol. He is still reporting dyspnea on room air with productive cough with white/yellow sputum production and pleuritic chest pain. He is also reporting diffuse abdominal discomfort, consistent with his chronic abdominal discomfort r/t GERD and constipation. Last BM was yesterday. No n/v. Review of Systems Review of Systems: General: No fevers, malaise, unintentional weight loss Cardiovascular: +pleuritic chest pain. No chest pressure, palpitations, or leg edema Respiratory: +sob, wheezing, and cough GI: +diffuse abdominal pain, constipation. No nausea, vomiting, diarrhea : No dysuria, urgency Neuro: No headaches, weakness, paresthesias Skin: No rashes or lesions [facility] Medical History Anxiety Asthma Bronchitis Chronic GERD Depression Diabetes HTN (hypertension) Hyperlipidemia Family History Father No problems noted. Mother Hx of breast cancer Sister Diabetes Maternal Aunt Heart problem Surgical History Hx of colonoscopy Hx of esophagogastroduodenoscopy Hx of hernia repair Hx of repair of rotator cuff Hx of toe surgery Social History Household Members: Spouse Alcohol intake: unknown Patient Tobacco Use Status: Former Tobacco user Years Smoked: 20 yrs ( quit 8 years ago) Second Hand Smoke Exposure: Yes Advance Directives: No Advance Directives Information Provided: Yes Meds Allergies Allergy/AdvReac Type Severity Reaction Status Date / Time No Known Allergies Allergy Verified 05/27/21 12:23 Active Medications: Current Medications Acetaminophen (Acetaminophen 325 Mg Tablet) 650 mg PO Q6H PRN PRN Reason: Pain, Moderate (Pain Scale 4-6 Albuterol/Ipratropium (Albuterol/Iprat 2.5/0.5mg 3 Ml Ampul.[place]) 3 ml INHALE Q4H PRN PRN Reason: Wheezing Aspirin (Aspirin Enteric Coated 81 Mg Tablet.) 81 mg PO DAILY [facility] Atorvastatin Calcium (Atorvastatin Calcium 20 Mg Tablet) 20 mg PO BEDTIME [facility] Doxycycline Hyclate (Doxycycline Hyclate 100 Mg Tablet) 100 mg PO Q12H [facility] Enoxaparin Sodium (Enoxaparin Sodium 40 Mg/0.4 Ml Syringe) 40 mg SUBCUT Q24H [facility] Sodium Chloride (Ns) 1,000 mls @ 100 mls/hr IVCONT .Q10H [facility] Ceftriaxone Sodium 1 gm/ (Sodium Chloride) 50 mls @ 100 mls/hr IV Q24H [facility] Insulin Human Lispro (Insulin Lispro 100 Unit/Ml 3 Ml Vial) 0 unit SUBCUT QIDACHS [facility]; Protocol Metoclopramide HCl (Metoclopramide Hcl 10 Mg Tablet) 10 mg PO TIDAC [facility] Montelukast Sodium (Montelukast Sodium 10 Mg Tablet) 10 mg PO DAILY [facility] Omeprazole (Omeprazole 20 Mg Capsule.) 20 mg PO DAILY@0630 [facility] Pharmacy Consult (Consult Rx Perform Med Rec) 1 each MISCELLANE ONCE PRN PRN Reason: Consult order Senna (Sennosides 8.6 Mg Tablet) 17.2 mg PO BEDTIME [facility] Sertraline HCl (Sertraline Hcl 100 Mg Tablet) 200 mg PO DAILY [facility] Simethicone (Simethicone 80 Mg Tab.Chew) 160 mg PO QID PRN PRN Reason: abdominal distention Sodium Chloride (0.9 % Sodium Chloride Flush 3 Ml Syringe) 3 ml IVFLUSH QSHIFT [facility] Home Medications Medication Instructions Recorded Confirmed Last Taken Type loratadine 10 mg tablet 10 mg PO DAILY 12/04/19 10/11/21 10/11/21 History lorazepam 0.5 mg tablet 0.5 mg PO DAILY 12/04/19 10/11/21 10/11/21 History metformin 1,000 mg tablet 1,000 mg PO BID 12/04/19 10/11/21 10/11/21 History montelukast 10 mg tablet 10 mg PO DAILY 12/04/19 10/11/21 10/11/21 History sertraline 100 mg tablet 200 mg PO DAILY 12/04/19 10/11/21 10/11/21 History atorvastatin 20 mg tablet 20 mg PO BEDTIME 07/06/20 10/11/21 10/10/21 History gabapentin 300 mg capsule 300 mg PO BID 07/06/20 10/11/21 10/11/21 History pioglitazone 30 mg tablet 30 mg PO DAILY@1200 07/06/20 10/11/21 10/11/21 History eszopiclone 3 mg tablet 3 mg PO BEDTIME PRN insomnia 09/08/20 10/11/21 10/10/21 History aspirin 81 mg tablet,delayed 81 mg PO DAILY 11/11/20 10/11/21 10/11/21 History release blood sugar diagnostic (FreeStyle #10 ea 11/11/20 01/17/21 10/11/21 History Lite Strips) pen needle, diabetic 31 gauge x #1,200 ea 11/11/20 01/17/21 10/11/21 History 07/11 (UltiCare Pen Needle) empagliflozin 25 mg tablet 25 mg PO DAILY 10/11/21 10/11/21 10/11/21 History (Jardiance) insulin glargine 100 unit/mL (3 36 unit subcut BEDTIME 10/11/21 10/11/21 10/10/21 History mL) subcutaneous pen metoclopramide HCl 10 mg tablet 10 mg PO TIDAC 10/11/21 10/11/21 10/11/21 History (Reglan) pantoprazole 40 mg tablet,delayed 40 mg PO DAILY@0630 10/11/21 10/11/21 10/11/21 History release sennosides 8.6 mg tablet (senna) 2 tab PO BEDTIME constipation 10/11/21 10/11/21 10/10/21 History Physical Exam Vital Signs and Narrative: Vital Signs: Last Vital Signs Temp 98.1 F 10/11/21 11:30 Pulse 109 H 10/11/21 11:30 Resp 20 10/11/21 11:30 BP 100/56 L 10/11/21 11:30 Pulse Ox 92 10/11/21 11:30 O2 Del Method 10/11/21 11:30 BMI result Body Mass Index 29.2 Constitutional - Awake and Alert, Mild distress with increased work of breathing Eyes - PERRLA, EOMI Cardiovascular - S1S2, RRR, No edema Respiratory - Increased work of breathing with accessory muscle use and diffuse wheezing b/l. Normal lung expansion Gastrointestinal - NT / ND; +BS; No rebound or guarding Extremities - no calf tenderness bilaterally, no swelling Musculoskeletal - Normal inspection, normal ROM Skin - Warm/Dry Neurological - Alert & oriented x3, No focal deficit Psychological - Appropriate affect Results Labs CBC and Chem 7: 10/11/21 08:32 10/11/21 08:32 Labs: Laboratory Results - last 24 hr 10/11/21 10/11/21 10/11/21 08:32 08:32 08:32 MCV 90.6 MCH 28.7 MCHC 31.7 RDW 14.4 Plt Count 213 MPV 8.9 L Immature Gran % (Auto) 0.7 H Neut % (Auto) 44.8 L Lymph % (Auto) 30.4 [place] % (Auto) 11.6 H Eos % (Auto) 11.8 H Baso % (Auto) 0.7 Lymph # (Auto) 2.8 [place] # (Auto) 1.1 Eos # (Auto) 1.1 H Baso # (Auto) 0.1 Abs Immat Gran (auto) 0.06 H Absolute Neuts (auto) 4.1 Absolute Nucleated RBC 0.000 Nucleated RBC % (auto) 0.0 Anion Gap 17 Estim Creat Clear Calc 62.9 Estimated GFR 54 Random Glucose 340 H D Lactic Acid Calcium 9.1 Magnesium 2.0 Total Bilirubin 0.2 AST 22 ALT 28 Alkaline Phosphatase 73 Total Protein 7.7 Albumin 4.0 COVID-19 (JOSHUA) Negative COVID-19 Clin Com See Note 10/11/21 11:07 MCV MCH MCHC RDW Plt Count MPV Immature Gran % (Auto) Neut % (Auto) Lymph % (Auto) [place] % (Auto) Eos % (Auto) Baso % (Auto) Lymph # (Auto) [place] # (Auto) Eos # (Auto) Baso # (Auto) Abs Immat Gran (auto) Absolute Neuts (auto) Absolute Nucleated RBC Nucleated RBC % (auto) Anion Gap Estim Creat Clear Calc Estimated GFR Random Glucose Lactic Acid 4.8 H* Calcium Magnesium Total Bilirubin AST ALT Alkaline Phosphatase Total Protein Albumin COVID-19 (JOSHUA) COVID-19 Clin Com Imaging Radiologist's Impressions: Impressions Chest X-Ray 10/11/21 09:18 IMPRESSION: Query early bibasilar pneumonitis. Assessment and Plan (1) Acute bronchitis with asthma with acute exacerbation: Status: Acute (2) Pneumonia: Status: Acute Plan Patient with history of noninsulin depedent diabetes, hdl, depression, GERD, chronic constipation, and asthma admitted for acute asthma exacerbation/bronchitis and pneumonia. 1- Acute asthma exacerbation with bronchitis - Received dose of IV solumedrol and duonebs in ED. Patient with mild tachypnea of 22 secondary to asthma exacerbation, and mild tachycardia 109 and elevated lactic acid 4.8 secondary to albuterol use. Not felt to be related to sepsis but has received IV fluid bolus in ED. Repeat lactic acid pending - 40mg oral prednisone daily for moderate exacerbation - 2L O2 to maintain oxygen saturation >93% - Duoneb prn - Diabetic diet, continue IV NS 2- Bilateral pneumonitis/pneumonia -CXR with bilateral pneumonitis, possible early pneumonia -Received 1g IV ceftriaxone. Continue 1g IV ceftriaxone daily and doxycycline BID -Elevated lactic acid and nonconcurrent tachypnea and tachycardia as above, not felt to be sepsis 3- Type 2 diabetes -SSI per protocol -Hold home meds -Diabetic diet 4-HLD -continue atorvastatin 5-Depression -Continue zoloft 6- GERD -Continue pantoprazole and simethicone 7- CHronic constipation -Continue senna DVT prophylaxis- lovenox Full code Patient requires inpatient stay of at least 2midnights for management of moderate acute asthma exacerbation requiring supplemental oxygen and streroids as he is at risk for hypoxia Quality Stroke Does the patient have a stroke diagnosis?: No VTE Prior VTE?: No VTE Risk Level:: Medical - moderate - high VTE Device Contraindication: Treatment Not Indicated VTE Drug Contraindication: N/A - Med Ordered
[2021-10-11 14:09] LABS: ~Lactic Acid-LAB USE ONLY 5.6 mmol/L (0.5-2.0)
[2021-10-11 15:48] LABS: Reflex Lactate? 2 Y
[2021-10-11] MEDS: 0.9 % Sodium Chloride Flush 3 ML SYRINGE IVFLUSH (16:46)
[2021-10-11] MEDS: Enoxaparin Sodium 40 MG/0.4 ML SYRINGE SUBCUT (16:46)
[2021-10-11] MEDS: Metoclopramide HCl 10 MG TABLET PO (16:52)
[2021-10-11 17:59] LABS: Glucose, Whole Blood 295 mg/dL (60-115)
[2021-10-11] MEDS: Insulin Lispro 100 UNIT/ML 3 ML VIAL SUBCUT (18:05)
--- NOTE | 2021-10-11 19:18 | MHC.CM.PN ---
IMM 10/11. HCP reviewed, completed and signed. HCP/ Lyndsay Zuniga ([phone]). Copies given. Uploaded into [facility] [email or web address] and [email or web address] [employer].Vax/boosted x1/Moderna. Lives with . No DME/Services. Has diabetic testing supplies. Independent. D/C plan: Home without services. Pt will drive himself home. CM to follow for d/c needs. Awaiting bed assignment.
[2021-10-11] MEDS: Sennosides 8.6 MG TABLET 17.2 MG PO (21:46)
[2021-10-11] MEDS: Atorvastatin Calcium 20 MG TABLET PO (21:46)
[2021-10-11 21:50] LABS: Glucose, Whole Blood 155 mg/dL (60-115)
[2021-10-11] MEDS: Acetaminophen 325 MG TABLET 650 MG PO (22:57)
[2021-10-12 00:54] VITALS: BMI 30.3
[2021-10-12] MEDS: Benzonatate 100 MG CAPSULE PO ×2 (01:20→09:17)
[2021-10-12] MEDS: 0.9 % Sodium Chloride 1,000 ML 100 ML IVCONT ×3 (01:20→23:27)
[2021-10-12 03:15] VITALS: BP 110/63; PULSE 88; RESP 16; TEMP 36.3; O2SAT 96
[2021-10-12] MEDS: Omeprazole 20 MG CAPSULE.DR PO (05:58)
--- NOTE | 2021-10-12 07:14 | PHA.MEDREC ---
Addendum entered by Max Culp 10/12/21 07:15: Verified with pharmacy on current [facility] medications and spoke to patient to confirm last doses taken. Original Note: Pharmacy Consult ? Medication Reconciliation Pharmacy has completed the medication reconciliation.
[2021-10-12 07:26] LABS: Glucose, Whole Blood 105 mg/dL (60-115)
[2021-10-12 07:40] VITALS: BP 121/66; PULSE 86; RESP 14; TEMP 36.1; O2SAT 95
[2021-10-12] MEDS: cefTRIAXone sodium 1 GM in 0.9 % Sodium Chloride 50 ML IV (09:15)
[2021-10-12] MEDS: Sertraline HCL 100 MG TABLET 200 MG PO (09:15)
[2021-10-12] MEDS: Metoclopramide HCl 10 MG TABLET PO ×3 (09:15→16:52)
[2021-10-12] MEDS: Aspirin Enteric Coated 81 MG TABLET.DR PO (09:15)
[2021-10-12] MEDS: predniSONE 20 MG TABLET 40 MG PO (09:15)
[2021-10-12] MEDS: Montelukast Sodium 10 MG TABLET PO (09:15)
--- NOTE | 2021-10-12 09:43 | P.PNIM_ITS ---
Subjective Subjective Date of Service: 10/12/21 Interval History: Patient seen for follow up on acute asthma exacerbation and early pneumonia. Reports breathing has improved. Still some wheezing and productive cough. Some upper abdominal discomfort with nausea and one episode vomiting. Physical Exam Vital Signs: Vital Signs: Last Vital Signs Temp 97.0 F 10/12/21 07:40 Pulse 86 10/12/21 07:40 Resp 14 10/12/21 07:40 BP 121/66 10/12/21 07:40 Pulse Ox 95 10/12/21 07:40 O2 Del Method 10/12/21 07:40 BMI result Body Mass Index 30.3 Constitutional - Awake and Alert, No apparent distress Eyes - PERRLA, EOMI Cardiovascular - S1S2, RRR, No edema Respiratory - Scattered wheezes lower lobes bilaterally. Normal lung expansion, Normal respiratory effort, No respiratory distress Gastrointestinal - NT / ND; +BS; No rebound or guarding Extremities - no calf tenderness bilaterally, no swelling Musculoskeletal - Normal inspection, normal ROM Skin - Warm/Dry Neurological - Alert & oriented x3, No focal deficit Psychological - Appropriate affect Objective Data Active Medications Acetaminophen (Acetaminophen 325 Mg Tablet) 650 mg PO Q6H PRN PRN Reason: Pain, Moderate (Pain Scale 4-6 Last Admin: 10/11/21 22:57 Dose: 650 mg Documented By: TALON Albuterol/Ipratropium (Albuterol/Iprat 2.5/0.5mg 3 Ml Ampul.Neb) 3 ml INHALE Q4H PRN PRN Reason: Wheezing Aspirin (Aspirin Enteric Coated 81 Mg Tablet.) 81 mg PO DAILY [facility] Last Admin: 10/12/21 09:15 Dose: 81 mg Documented By: JOAQUÍN Atorvastatin Calcium (Atorvastatin Calcium 20 Mg Tablet) 20 mg PO BEDTIME [facility] Last Admin: 10/11/21 21:46 Dose: 20 mg Documented By: BARBERB Benzonatate (Benzonatate 100 Mg Capsule) 100 mg PO TID PRN PRN Reason: Cough Last Admin: 10/12/21 09:17 Dose: 100 mg Documented By: JOAQUÍN Doxycycline Hyclate (Doxycycline Hyclate 100 Mg Tablet) 100 mg PO Q12H [facility] Last Admin: 10/12/21 01:20 Dose: 100 mg Documented By: CASTILM Enoxaparin Sodium (Enoxaparin Sodium 40 Mg/0.4 Ml Syringe) 40 mg SUBCUT Q24H [facility] Last Admin: 10/11/21 16:46 Dose: 40 mg Documented By: ZAHRA Sodium Chloride (Ns) 1,000 mls @ 100 mls/hr IVCONT .Q10H [facility] Last Infusion: 10/12/21 09:18 Dose: 0 mls/hr Documented By: JOAQUÍN Ceftriaxone Sodium 1 gm/ (Sodium Chloride) 50 mls @ 100 mls/hr IV Q24H [facility] Last Admin: 10/12/21 09:15 Dose: 100 mls/hr Documented By: JOAQUÍN Insulin Human Lispro (Insulin Lispro 100 Unit/Ml 3 Ml Vial) 0 unit SUBCUT QIDACHS [facility]; Protocol Last Admin: 10/12/21 07:58 Dose: Not Given Documented By: JOAQUÍN Non-Admin Reason: No Insulin Coverage Metoclopramide HCl (Metoclopramide Hcl 10 Mg Tablet) 10 mg PO TIDAC [facility] Last Admin: 10/12/21 09:15 Dose: 10 mg Documented By: JOAQUÍN Montelukast Sodium (Montelukast Sodium 10 Mg Tablet) 10 mg PO DAILY [facility] Last Admin: 10/12/21 09:15 Dose: 10 mg Documented By: JOAQUÍN Omeprazole (Omeprazole 20 Mg Capsule.Dr) 20 mg PO DAILY@0630 [facility] Last Admin: 10/12/21 05:58 Dose: 20 mg Documented By: MADISON Pharmacy Consult (Consult Rx Perform Med Rec) 1 each MISCELLANE ONCE PRN PRN Reason: Consult order Prednisone (Prednisone 20 Mg Tablet) 40 mg PO DAILY [facility] Last Admin: 10/12/21 09:15 Dose: 40 mg Documented By: JOAQUÍN Senna (Sennosides 8.6 Mg Tablet) 17.2 mg PO BEDTIME [facility] Last Admin: 10/11/21 21:46 Dose: 17.2 mg Documented By: SERGE Sertraline HCl (Sertraline Hcl 100 Mg Tablet) 200 mg PO DAILY [facility] Last Admin: 10/12/21 09:15 Dose: 200 mg Documented By: JOAQUÍN Simethicone (Simethicone 80 Mg Tab.Chew) 160 mg PO QID PRN PRN Reason: abdominal distention Sodium Chloride (0.9 % Sodium Chloride Flush 3 Ml Syringe) 3 ml IVFLUSH QSHIFT RIK Last Admin: 10/12/21 09:15 Dose: Not Given Documented By: JOAQUÍN Non-Admin Reason: IV Running Labs CBC & Chem 7: 10/11/21 08:32 10/11/21 08:32 Labs: Laboratory Results - last 24 hr 10/11/21 10/11/21 10/11/21 11:07 13:45 16:31 POC Glucose Lactic Acid 4.8 H* Lactic Acid F/U @ 2Hr 5.6 H* Lactic Acid F/U @ 4Hr 5.0 H* 10/11/21 10/11/21 10/12/21 17:55 21:45 07:21 POC Glucose 295 H 155 H 105 Lactic Acid Lactic Acid F/U @ 2Hr Lactic Acid F/U @ 4Hr Assessment and Plan (1) Acute bronchitis with asthma with acute exacerbation: Status: Acute (2) Pneumonia: Status: Acute Plan Patient with history of noninsulin depedent diabetes, hdl, depression, GERD, chronic constipation, and asthma admitted for acute asthma exacerbation/bronchitis and pneumonia. 1- Acute asthma exacerbation with bronchitis- improving - Continue oral prednisone and duoneb as needed - 40mg oral prednisone daily for moderate exacerbation - O2 saturations stable on room air. Dc supplemental O2 2- Bilateral pneumonitis/pneumonia- improving - Continue Iv ceftriaxone and doxycycline. Patient had episode vomiting and nausea. Reglan as needed. Continue changing doxycycline if symptoms persist 3- Type 2 diabetes- controlled -SSI per protocol -Hold home meds -Diabetic diet 4-HLD -continue atorvastatin 5-Depression -Continue zoloft 6- GERD -Continue pantoprazole and simethicone 7- CHronic constipation -Continue senna DVT prophylaxis- lovenox Full code Patient requires ongoing inpatient stay for management of acute asthma exacerbation that has required supplemental oxygen to prevent hypoxia and IV steroids to prevent further decompensation. Quality Stroke Does the patient have a stroke diagnosis?: No VTE Prior VTE?: No VTE Risk Level:: Medical - moderate - high VTE Device Contraindication: Treatment Not Indicated VTE Drug Contraindication: N/A - Med Ordered
[2021-10-12 11:03] VITALS: BP 132/69; PULSE 89; RESP 15; TEMP 36.1; O2SAT 92
[2021-10-12 11:48] LABS: Glucose, Whole Blood 161 mg/dL (60-115)
--- NOTE | 2021-10-12 12:02 | MHC.CM.PN ---
EMR REVIEWED, PT W/ASTHMA EXAC, PER HOSPITALIST ANTIC PT WILL D/C HOME TOMORROW 10/13 W/NO SERVICES, PT WILL SELF TRANSPORT
[2021-10-12] MEDS: Insulin Lispro 100 UNIT/ML 3 ML VIAL SUBCUT ×3 (12:20→20:27)
[2021-10-12 15:09] VITALS: BP 124/65; PULSE 90; RESP 18; TEMP 36.2; O2SAT 95
[2021-10-12 15:38] LABS: Glucose, Whole Blood 301 mg/dL (60-115)
[2021-10-12] MEDS: Enoxaparin Sodium 40 MG/0.4 ML SYRINGE SUBCUT (16:51)
[2021-10-12 19:06] VITALS: BP 117/66; PULSE 100; RESP 18; TEMP 36.3; O2SAT 95
[2021-10-12 19:30] LABS: Glucose, Whole Blood 225 mg/dL (60-115)
[2021-10-12] MEDS: Sennosides 8.6 MG TABLET 17.2 MG PO (20:27)
[2021-10-12] MEDS: Atorvastatin Calcium 20 MG TABLET PO (20:27)
[2021-10-12 23:21] VITALS: BP 116/64; PULSE 80; RESP 18; TEMP 36.1; O2SAT 94
[2021-10-13 03:19] VITALS: BP 121/78; PULSE 84; RESP 18; TEMP 36.4; O2SAT 94
[2021-10-13] MEDS: Omeprazole 20 MG CAPSULE.DR PO (05:57)
[2021-10-13 07:40] LABS: Glucose, Whole Blood 128 mg/dL (60-115)
[2021-10-13 08:00] VITALS: BP 128/74; PULSE 78; RESP 16; TEMP 36.4; O2SAT 96
[2021-10-13] MEDS: predniSONE 20 MG TABLET 40 MG PO (08:10)
[2021-10-13] MEDS: Metoclopramide HCl 10 MG TABLET PO (08:10)
[2021-10-13] MEDS: Montelukast Sodium 10 MG TABLET PO (08:10)
[2021-10-13] MEDS: cefTRIAXone sodium 1 GM in 0.9 % Sodium Chloride 50 ML IV (08:10)
[2021-10-13] MEDS: Sertraline HCL 100 MG TABLET 200 MG PO (08:10)
[2021-10-13] MEDS: Aspirin Enteric Coated 81 MG TABLET.DR PO (08:10)
[2021-10-13] MEDS: 0.9 % Sodium Chloride 1,000 ML 100 ML IVCONT (08:14)
--- NOTE | 2021-10-13 09:36 | P.CDIC_ITS ---
CDI Concurrent Query Documentation Clarification: PHYSICIAN'S DOCUMENTATION REQUEST Date of Query: 10/13/21 0936 Patient Name: Sancho Zuniga Admit Date: 10/11/21 Dear Doctor, Please review the following and provide your response in the progress notes. Clinical Indicators: The diagnosis of asthma was documented in the record on 10/12/21. Additional clinical indicators from the record include: Risk Factors/Clinical Indicators/Treatments - Acute asthma exacerbation with bronchitis- improving - Continue oral prednisone and duoneb as needed - 40mg oral prednisone daily for moderat e exacerbation - O2 saturations stable on room air. Dc supplemental O2 Based on the above, please clarify in the Progress Notes further specificity r egarding the type and acuity of the asthma: Type: * Mild intermittent - less than 2x/week * Mild persistent - more than 2x/week but not daily * Moderate persistent - daily and may restrict physical activity * Severe persistent - throughout the day with frequent attacks, limiting activities * Exercise induced * Other ? please specify * Unable to determine Use of terms such as suspected, likely, concern for, or probable (associated with a specific diagnosis that is being evaluated, monitored, or treated as if it exists) are acceptable and can be coded in the inpatient setting, when documented at the time of discharge. Thank you, Sadie Patel RN Extension: [phone] Please use your independent medical judgment in providing your response. THIS QUERY IS PART OF THE PERMANENT MEDICAL RECORD Provider Response: Other Other Diagnosis: Mild intermittent asthma
--- NOTE | 2021-10-13 09:36 | MHC.CDI.CONC ---
CDI Concurrent Query Documentation Clarification: PHYSICIAN'S DOCUMENTATION REQUEST Date of Query: 10/13/21 0936 Patient Name: Sancho Zuniga Admit Date: 10/11/21 Dear Doctor, Please review the following and provide your response in the progress notes. Clinical Indicators: The diagnosis of asthma was documented in the record on 10/12/21. Additional clinical indicators from the record include: Risk Factors/Clinical Indicators/Treatments - Acute asthma exacerbation with bronchitis- improving - Continue oral prednisone and duoneb as needed - 40mg oral prednisone daily for moderate exacerbation - O2 saturations stable on room air. Dc supplemental O2 Based on the above, please clarify in the Progress Notes further specificity regarding the type and acuity of the asthma: Type: Mild intermittent - less than 2x/week Mild persistent - more than 2x/week but not daily Moderate persistent - daily and may restrict physical activity Severe persistent - throughout the day with frequent attacks, limiting activities Exercise induced Other ? please specify Unable to determine Use of terms such as suspected, likely, concern for, or probable (associated with a specific diagnosis that is being evaluated, monitored, or treated as if it exists) are acceptable and can be coded in the inpatient setting, when documented at the time of discharge. Thank you, Sadie Patel RN Extension: [phone] Please use your independent medical judgment in providing your response. THIS QUERY IS PART OF THE PERMANENT MEDICAL RECORD Provider Response: Other Other Diagnosis: Mild intermittent asthma
--- NOTE | 2021-10-13 10:46 | PM.DS ---
DS: Providers Provider Date of Service: 10/13/21 Date of admission: 10/11/21 13:46 Date of discharge: 10/13/21 Primary care physician: Danis Laurent MD Attending physician on discharge: Teofilo Sandoval Discharging clinician: Emeli Shea DS: Diagnosis Discharge Diagnosis (1) Acute bronchitis with asthma with acute exacerbation: Status: Acute (2) Pneumonia: Status: Acute DS: Summary Hospital Course Hospital Course: HPI on admission: 61-year-old male with history of asthma, hyperlipidemia, depression, GERD, and [id number] diabetes presented to the ED this morning for evaluation of productive cough, shortness of breath and wheezing, chest tightness, pleuritic chest pain.? He is seen in the ED 1 month ago and recommended for admission for acute asthma exacerbation but declined admission and was treated with oral steroids.? States this helped his symptoms somewhat but symptoms worsened about 1 week ago.? His requiring the use of his albuterol inhaler multiple times a day with limited improvement in symptoms. He has a remote hospitalization for asthma about 6 years ago? but has never been intubated. In the ED, cxr showed bilateral pneumonitis/possible early pneumonia. Has been mildly tachypneic with RR 22 and mildly tachycardic at 109 following duoneb administrations. Lactic acid elevated at 4.8, no leukocytosis. Received 2 fluid bolus IV NS and dose of IV ceftriaxone 1g and IV solumedrol. He is still reporting dyspnea on room air with productive cough with white/yellow sputum production and pleuritic chest pain. He is also reporting diffuse abdominal discomfort, consistent with his chronic abdominal discomfort r/t GERD and constipation. Last BM was yesterday. No n/v. Hospital course: Patient admitted with acute asthma exacerbation with early pneumonia. While in ED, was in mild respiratory distress requiring supplemental oxygen for a brief period. Treated initially with IV solumedrol and transitioned to oral prednisone. Received duonebs prn with good improvement in respiratory symptoms. Treated with IV ceftriaxone and doxycycline for early bilateral lower lobe pneumonia. He has remained hemodyanically stable since admission and is feeling well without any shortness of breath though cough does persist. He has remained afebrile and has not required any supplemental O2 since admission. He will be discharged home to complete course of prednisone x 3days and will be transitioned to augmentin BID x5 days. He should use his albuterol inhaler as needed and follow up with PCP. Time Spent with Patient Time attestation: Total time spent providing and/or coordinating discharge services: Discharge coordination time: Greater than 30 minutes Quality: Safe Use of Opioids Does Pt have an Active Cancer Diagnosis on the Problem List?: No Quality: Stroke Does the patient have a stroke diagnosis?: No Physical Exam Vital Signs: Vital Signs: Last Vital Signs Temp 97.6 F 10/13/21 08:00 Pulse 78 10/13/21 08:00 Resp 16 10/13/21 08:00 BP 128/74 10/13/21 08:00 Pulse Ox 96 10/13/21 08:00 O2 Del Method 10/13/21 08:00 BMI result Body Mass Index 30.3 Constitutional - Awake and Alert, No apparent distress Eyes - PERRLA, EOMI Cardiovascular - S1S2, RRR, No edema Respiratory - Normal lung expansion, Normal respiratory effort, No respiratory distress, CTA bilaterally Gastrointestinal - NT / ND; +BS; No rebound or guarding Extremities - no calf tenderness bilaterally, no swelling Skin - Warm/Dry Neurological - Alert & oriented x3, No focal deficit Psychological - Appropriate affect DS: Data Data Completed and Pending Labs on day of discharge: Laboratory Results - last 24 hr 10/12/21 10/12/21 10/12/21 11:08 15:12 19:23 POC Glucose 161 H 301 H 225 H 10/13/21 07:24 POC Glucose 128 H Preliminary micro results at discharge 10/11/21 11:07 Blood Culture - Preliminary Blood - Venous No growth after 24 hours. 10/11/21 11:07 Blood Culture - Preliminary Blood - Venous No growth after 24 hours. Discharge Plan Discharge Patient Disposition: Home, Self-Care Discharge Diagnosis: asthma exacerbation, pneumonia Referrals: Danis Laurent MD [Primary Care Provider] - 1 Week Discharge Medications: New amoxicillin-pot clavulanate 875-125 mg tablet 1 tab PO BID Qty: 10 0RF prednisone 20 mg Tablet 40 mg PO DAILY Qty: 6 0RF Continued repaglinide 0.5 mg tablet 0.5 mg PO TID Qty: 90 7RF sertraline 100 mg Tablet 200 mg PO DAILY lorazepam 0.5 mg Tablet 0.5 mg PO DAILY metformin 1,000 mg Tablet 1,000 mg PO BID montelukast 10 mg Tablet 10 mg PO DAILY loratadine 10 mg Tablet 10 mg PO DAILY pioglitazone 30 mg tablet 30 mg PO DAILY@1200 sennosides [senna] 8.6 mg tablet 2 tab PO BEDTIME pantoprazole 40 mg tablet,delayed release (DR/EC) 40 mg PO DAILY@0630 metoclopramide HCl [Reglan] 10 mg tablet 10 mg PO TIDAC insulin glargine 100 unit/mL (3 mL) insulin pen 36 unit subcut BEDTIME Jardiance 25 mg tablet 25 mg PO DAILY albuterol sulfate 90 mcg/actuation aerosol powdr breath activated 2 inh inhalation Q6H PRN (Reason: shortness of breath or wheezing) Qty: 1 0RF albuterol sulfate 2.5 mg /3 mL (0.083 %) solution for nebulization 2.5 mg inhalation QID PRN (Reason: shortness of breath or wheezing) Qty: 75 0RF atorvastatin 20 mg tablet 20 mg PO BEDTIME gabapentin 300 mg capsule 300 mg PO BID eszopiclone 3 mg tablet 3 mg PO BEDTIME PRN (Reason: insomnia) simethicone 180 mg capsule 180 mg PO QID PRN (Reason: abdominal distention) Qty: 90 6RF (DME) pen needle, diabetic [UltiCare Pen Needle] 31 gauge x 5/16 needle See Rx Instructions subcut .MEDSUPPLY Qty: 1200 Rx Instructions: As directed (DME) FreeStyle Lite Strips Strip See Rx Instructions Not Applicable BID Qty: 10 Rx Instructions: As directed aspirin 81 mg tablet,delayed release (DR/EC) 81 mg PO DAILY (DME) FreeStyle Lite Strips Strip See Rx Instructions .ROUTE .MEDSUPPLY Qty: 100 11RF Rx Instructions: As directed three times a day (DME) lancets [FreeStyle Lancets] 28 gauge misc See Rx Instructions .ROUTE .MEDSUPPLY Qty: 100 11RF Rx Instructions: Three times a day Discharge Orders: Discharge Order (Routine); Ordered 10/13/21 Ordered By: Emeli Shea Diet: Advance to usual diet Activity on Discharge: As tolerated Stand Alone Forms: Patient Portal Discharge page Care Plan Goals: Prevent recurrence of symptoms Health Concerns: Asthma exaceration with pneumonia Plan of Treatment: Continue oral steroid prednisone for 3 days to resolve the asthma exacerbation as well as 5 days of augmentin which is an antibiotic to resolve the pneumonia Assessment: You were admitted to the hospital with an asthma exacerbation (worsening of baseline asthma symptoms) as well as an early pneumonia. You have been treated with steroids and albuterol as well as antibiotics for the pneumonia. You should continue the steroids and antibiotic as prescribed until gone to ensure resolution of your symptoms. Patient Instructions: Asthma (DC), Pneumonia (DC)
--- NOTE | 2021-10-13 11:07 | MHC.CM.PN ---
Patient has been medically cleared for discharge today; discharge is Home self-care. No 2nd IMM required.
[2021-10-13 11:29] LABS: Glucose, Whole Blood 296 mg/dL (60-115)
[2021-10-15 15:51] LABS: Strep Pneumo Ag urine Not Detected (Not Detected)
[2021-10-19 05:06] LABS: Legionella Ag Urine Not Detected (Not Detected)
== END 2021-10-13 11:29 | disposition home or self-care (01) | DRG 202 ==
LOC: HO.ED 11:01 → HO.EDOVER 14:03 → HO.S3 23:47
PROVIDERS: Physician Assistant Medical; Admitting Provider Physician Assistant; Emergency Provider Emergency Medicine; PCP Internal Medicine; Visit Provider Physician Assistant
DX: J45.21 Mild intermittent asthma with (acute) exacerbation (principal); J18.9 Pneumonia, unspecified organism; K21.9 Gastro-esophageal reflux disease without esophagitis; E78.5 Hyperlipidemia, unspecified; I10 Essential (primary) hypertension; K59.00 Constipation, unspecified; F41.9 Anxiety disorder, unspecified; F32.A Depression, unspecified; E11.9 Type 2 diabetes mellitus without complications; Z20.822 Contact with and (suspected) exposure to COVID-19; Z79.4 Long term (current) use of insulin; Z79.52 Long term (current) use of systemic steroids; Z79.84 Long term (current) use of oral hypoglycemic drugs; Z79.899 Other long term (current) drug therapy
CPT/HCPCS: 36415; 71046; 80053; 82947; 83605; 83735; 85025; 87040; 87449; 87635; 87899; 94640; 99285; J0696; J1650; J2930; J3475

== ENCOUNTER → 2021-11-15 14:45 | Outpatient (BNVA) | payer OTHER, SELFPAY | PROVIDERS: PCP Internal Medicine; Referring Provider Internal Medicine; Visit Provider Nurse Practitioner | DX: K31.84 Gastroparesis (principal); R13.10 Dysphagia, unspecified; K21.9 Gastro-esophageal reflux disease without esophagitis; R14.0 Abdominal distension (gaseous); K58.1 Irritable bowel syndrome with constipation; Z79.899 Other long term (current) drug therapy | CPT/HCPCS: 99212 ==

== ENCOUNTER 2021-12-16 16:25 | Outpatient (REF) | payer OTHER, SELFPAY ==
--- NOTE | ~2021-12-16 | XR_ITS ---
EXAMINATION: XR CHEST CLINICAL INFORMATION: Asthma COMPARISON: Previous chest x-ray most recent September 2021 TECHNIQUE: 2 views of the chest were obtained. FINDINGS: The cardiac and mediastinal contours are stable. There is a 7 mm nodular density that projects over the right anterior sixth rib. This may represent nipple shadow or overlapping bone and vascular structures. Follow-up chest x-ray with nipple markers recommended. The lungs are otherwise clear. There is no pleural effusion or pneumothorax. There are postsurgical changes to both shoulders. Bony structures are otherwise unremarkable. XR/XR chest 2V IMPRESSION: 7 mm nodular density projecting over the right lung base. Follow-up chest x-ray with nipple markers recommended.
== END 2021-12-16 16:26 | disposition home or self-care (01) ==
LOC: HO.XRAY 16:25
PROVIDERS: Absent Provider Internal Medicine; PCP Internal Medicine; Visit Provider Emergency Medicine
DX: J45.31 Mild persistent asthma with (acute) exacerbation (principal)
CPT/HCPCS: 71046

== ENCOUNTER → 2021-12-23 13:00 | Outpatient (BNVA) | payer OTHER, SELFPAY | PROVIDERS: PCP Internal Medicine; Visit Provider Hospitalist | DX: Z23 Encounter for immunization (principal); J45.909 Unspecified asthma, uncomplicated; K21.9 Gastro-esophageal reflux disease without esophagitis | CPT/HCPCS: 90471; 90686; 99202 ==

== ENCOUNTER 2021-12-28 14:45 | Outpatient (REF) | payer OTHER, SELFPAY ==
[2021-12-28 15:20] LABS: MANUAL DIFF FLAG NO
[2021-12-28 15:30] LABS: Basophils Absolute Auto 0.1 X10*3/uL (0.0-0.2); Basophils Percent Auto 0.6 % (0-2); Eosinophils Absolute Auto 0.8 X10*3/uL (0.0-0.4); Eosinophils Percent Auto 6.8 % (0-4); Hematocrit 47.2 % (42.0-52.0); Hemoglobin 14.7 g/dl (14.0-18.0); Imm Gran Abs Auto 0.04 X10*3/uL (0.00-0.03); Imm Gran Pct Auto 0.4 % (0.0-0.4); Lymphocytes Absolute Auto 1.8 X10*3/uL (1.2-4.9); Lymphocytes Percent Auto 16.3 % (20-40); Mean Corpuscular HGB Conc 31.1 g/dl (31.0-36.0); Mean Corpuscular Hemoglobin 28.2 pg (27.0-33.0); Mean Corpuscular Volume 90.4 fL (80.0-98.0); Mean Platelet Volume 9.4 fL (9.4-12.4); Monocytes Absolute Auto 1.2 X10*3/uL (0.1-1.2); Monocytes Percent Auto 10.4 % (2-11); Neutrophils Absolute Auto 7.4 x10*3/uL (2.0-8.3); Neutrophils Percent Auto 65.5 % (45-73); Platelet Count 224 X10*3/uL (160-400); Red Blood Count 5.22 X10*6/uL (4.60-5.80); Red Cell Distribution Width 14.6 % (11.0-16.0); White Blood Count 11.2 X10*3/uL (4.8-10.8)
[2021-12-28 16:08] LABS: Erythrocyte Sedimentation Rate 11 MM/HR (0-15)
== END 2021-12-28 14:46 | disposition home or self-care (01) ==
LOC: HO.LAB 14:45
PROVIDERS: PCP Internal Medicine; Visit Provider Hospitalist
DX: J45.909 Unspecified asthma, uncomplicated (principal); Z01.82 Encounter for allergy testing
CPT/HCPCS: 36415; 82785; 85025; 85652; 86003

== ENCOUNTER 2022-01-13 10:50 | Outpatient (REF) | payer OTHER, SELFPAY ==
--- NOTE | 2022-01-13 11:49 | PFT_ITS ---
FLOWS: FEV1 79% of predicted at 2.70 L. FVC 69% of predicted at 3.07 L. FEV1 to FVC ratio of 0.88. No bronchodilator response. LUNG VOLUMES: Total lung capacity 74% of predicted at 5.07 L. Residual volume 73% of predicted at 1.67 L. Slow vital capacity 74% of predicted at 3.40 L. Expiratory reserve volume 30% of predicted at 0.40 L. Diffusion capacity is mildly decreased, diffusion capacity corrects to normal after adjustment for alveolar ventilation. IMPRESSION: Moderate restrictive ventilatory defect with no bronchodilator response. Decreased expiratory reserve volume suggests extrathoracic restriction likely secondary to abdominal obesity. Twin Tariq MD AP/MODL / [id number]
== END 2022-01-13 10:51 | disposition home or self-care (01) ==
LOC: HO.RESP 10:50
PROVIDERS: PCP Internal Medicine; Visit Provider Internal Medicine
DX: J45.909 Unspecified asthma, uncomplicated (principal)
CPT/HCPCS: 94060; 94727; 94729

== ENCOUNTER → 2022-01-30 13:45 | Outpatient (BNVA) | payer OTHER, SELFPAY | PROVIDERS: PCP Internal Medicine; Visit Provider Hospitalist | DX: J45.40 Moderate persistent asthma, uncomplicated (principal); R93.89 Abnormal findings on diagnostic imaging of other specified body structures; K21.9 Gastro-esophageal reflux disease without esophagitis | CPT/HCPCS: 99212 ==

== ENCOUNTER 2022-05-29 14:20 | Outpatient (REF) | payer OTHER, SELFPAY ==
--- NOTE | ~2022-05-29 | XR_ITS ---
EXAMINATION: XR CHEST CLINICAL INFORMATION: Abnormal findings on diagnostic imaging. COMPARISON: Chest x-ray 12/16/2021. TECHNIQUE: 2 views of the chest were obtained. FINDINGS: The lungs are well expanded with no acute pneumonic process seen. There are punctate calcified granulomas or nodules in the right lower lobe which are stable. The 7 mm nodular density projecting over the right anterior 6th rib on the previous exam is not seen. The heart size and pulmonary vascularity is normal. No gross bony abnormality. XR/XR chest 2V IMPRESSION: 1. No acute cardiopulmonary process seen. 2. Small calcified granulomas or nodules right lower lobe. Previously visualized 7 mm nodule right lower lobe projecting over the 6th anterior rib is not seen.
== END 2022-05-29 14:21 | disposition home or self-care (01) ==
LOC: HO.XRAY 14:20
PROVIDERS: PCP Internal Medicine; Visit Provider Hospitalist
DX: J45.40 Moderate persistent asthma, uncomplicated (principal); R93.89 Abnormal findings on diagnostic imaging of other specified body structures; K21.9 Gastro-esophageal reflux disease without esophagitis
CPT/HCPCS: 71046; 99212

== ENCOUNTER → 2022-07-11 13:54 | Outpatient (BNVA) | payer OTHER, SELFPAY | PROVIDERS: PCP Internal Medicine; Visit Provider Nurse Practitioner | DX: R13.10 Dysphagia, unspecified (principal); K31.84 Gastroparesis; K21.9 Gastro-esophageal reflux disease without esophagitis; K58.1 Irritable bowel syndrome with constipation; D12.6 Benign neoplasm of colon, unspecified | CPT/HCPCS: 99212 ==

== ENCOUNTER 2022-07-13 13:50 | Outpatient (REF) | payer OTHER, SELFPAY ==
[2022-07-13 13:57] LABS: MANUAL DIFF FLAG NO
[2022-07-13 15:28] LABS: Basophils Absolute Auto 0.1 X10*3/uL (0.0-0.2); Basophils Percent Auto 0.6 % (0-2); Eosinophils Absolute Auto 0.9 X10*3/uL (0.0-0.4); Eosinophils Percent Auto 8.7 % (0-4); Hematocrit 44.3 % (42.0-52.0); Hemoglobin 14.2 g/dl (14.0-18.0); Imm Gran Abs Auto 0.06 X10*3/uL (0.00-0.03); Imm Gran Pct Auto 0.6 % (0.0-0.4); Lymphocytes Absolute Auto 2.9 X10*3/uL (1.2-4.9); Lymphocytes Percent Auto 27.2 % (20-40); Mean Corpuscular HGB Conc 32.1 g/dl (31.0-36.0); Mean Corpuscular Hemoglobin 28.3 pg (27.0-33.0); Mean Corpuscular Volume 88.4 fL (80.0-98.0); Mean Platelet Volume 9.8 fL (9.4-12.4); Monocytes Absolute Auto 1.1 X10*3/uL (0.1-1.2); Monocytes Percent Auto 10.1 % (2-11); Neutrophils Absolute Auto 5.7 x10*3/uL (2.0-8.3); Neutrophils Percent Auto 52.8 % (45-73); Platelet Count 238 X10*3/uL (160-400); Red Blood Count 5.01 X10*6/uL (4.60-5.80); White Blood Count 10.7 X10*3/uL (4.8-10.8)
[2022-07-13 16:00] LABS: Alanine Aminotransferase 26 U/L (0-40); Albumin Level 4.2 g/dL (3.5-5.0); Alkaline Phosphatase 68 U/L (39-117); Anion Gap 15 (12-20); Aspartate Amino Transferase 24 U/L (5-37); Bilirubin Total 0.3 mg/dL (0.0-1.0); Blood Urea Nitrogen 19 mg/dL (9-16); Calcium 9.4 mg/dL (8.4-10.2); Carbon Dioxide 26 mmol/L (22-29); Chloride 100 mmol/L (96-108); Estimated Glomerular Filt Rate 48; Glucose Random 370 mg/dL (60-115); Potassium 5.1 mmol/L (3.3-5.1); Sodium 136 mmol/L (135-145); Total Protein 8.1 g/dL (6.5-8.0)
== END 2022-07-13 13:51 | disposition home or self-care (01) ==
LOC: HO.LAB 13:50
PROVIDERS: PCP Internal Medicine; Visit Provider Nurse Practitioner
DX: R13.10 Dysphagia, unspecified (principal); Z20.2 Contact with and (suspected) exposure to infections with a predominantly sexual mode of transmission
CPT/HCPCS: 36415; 80053; 85025

== ENCOUNTER 2022-08-30 07:50 | Day surgery (SDC) | payer OTHER, SELFPAY ==
[2022-08-25 09:50] VITALS: BMI 29.8
--- NOTE | 2022-08-28 11:54 | HO.ANESPROP2 ---
Documented by User: Karie Solis NP 08/28/22 11:57 HPI - Anesthesia Eval Consult details Narrative: 62yo M for Upper Endoscopy [facility] Active Problems Active Problems: All Active Problems (Updated 08/25/22 @ 09:40 by Melissa Fulton, CAROLYNN) Gastroparesis (Acute) GERD (gastroesophageal reflux disease) (Acute) Dysphagia (Acute) Abdominal bloating (Acute) Tubular adenoma of colon (Acute) Irritable bowel syndrome with constipation (Acute) Tinea pedis (Acute) Type 2 diabetes mellitus with hyperglycemia (Acute) Status post rotator cuff surgery (Acute) Bilateral shoulder bursitis (Acute) Overweight (Acute) Goiter (Acute) Acute bronchitis with asthma with acute exacerbation (Acute) Acute bronchospasm (Acute) Pneumonia (Acute) New abnormality on chest x-ray (Acute) Asthma (Acute) Diabetes (Acute) Hyperlipidemia (Acute) Past Medical History Medical History Anxiety Asthma Asthma Bronchitis Chronic GERD Depression Diabetes HTN (hypertension) Hyperlipidemia New abnormality on chest x-ray Family History Family History Father No problems noted. Mother Hx of breast cancer Sister Diabetes Maternal Aunt Heart problem Family history of problems with anesthesia: No Surgical History Surgical History Hx of colonoscopy Hx of esophagogastroduodenoscopy Hx of hernia repair Hx of repair of rotator cuff Hx of toe surgery History of Problems with Anesthesia: No Social History Social History Household Members: Spouse Housing: Apartment Alcohol intake: unknown Patient Tobacco Use Status: Former Tobacco user Years Smoked: 20 yrs ( quit 8 years ago) Second Hand Smoke Exposure: Yes Use of substances other than those prescribed or required for medical reasons: No Are you DNR?: No Advance Directives: No Advance Directives Information Provided: Yes service: No Current occupational status: retired Meds Allergies Allergy/AdvReac Type Severity Reaction Status Date / Time No Known Allergies Allergy Verified 07/11/22 14:28 Home Medications Medication Instructions Recorded Confirmed Last Taken Type lorazepam 0.5 mg tablet 0.5 mg PO DAILY 12/04/19 08/25/22 10/11/21 History metformin 1,000 mg tablet 1,000 mg PO BID 12/04/19 08/25/22 10/11/21 History montelukast 10 mg tablet 10 mg PO DAILY 12/04/19 08/25/22 10/11/21 History sertraline 100 mg tablet 200 mg PO DAILY 12/04/19 08/25/22 10/11/21 History atorvastatin 20 mg tablet 20 mg PO BEDTIME 07/06/20 08/25/22 10/10/21 History gabapentin 300 mg capsule 300 mg PO BID 07/06/20 08/25/22 10/11/21 History pioglitazone 30 mg tablet 30 mg PO DAILY@1200 07/06/20 08/25/22 10/11/21 History eszopiclone 3 mg tablet 3 mg PO BEDTIME PRN insomnia 09/08/20 08/25/22 10/10/21 History aspirin 81 mg tablet,delayed 81 mg PO DAILY 11/11/20 08/25/22 10/11/21 History release blood sugar diagnostic (FreeStyle #10 ea 11/11/20 10/12/21 10/11/21 History Lite Strips) pen needle, diabetic 31 gauge x #1,200 ea 11/11/20 10/12/21 10/11/21 History 07/11 (UltiCare Pen Needle) empagliflozin 25 mg tablet 25 mg PO DAILY 10/11/21 08/25/22 10/11/21 History (Jardiance) insulin glargine 100 unit/mL (3 36 unit subcut BEDTIME 11/15/21 08/25/22 Unknown History mL) subcutaneous pen albuterol sulfate 90 mcg/actuation 0 mcg inhalation Q4H shortness of 05/29/22 08/25/22 Unknown History aerosol inhaler (Ventolin HFA) breath nebulizers 05/29/22 Unknown History Exam Exam Date and Time: August 28, 2022 1154 Height,Weight and Vital Signs: Height 5 ft 9 in Weight 91.626 kg Pertinent Lab Results Pertinent Lab Results: Laboratory Tests 07/13/22 07/13/22 13:56 13:56 WBC 10.7 Hgb 14.2 Hct 44.3 Plt Count 238 Sodium 136 Potassium 5.1 Chloride 100 Carbon Dioxide 26 BUN 19 H Creatinine 1.48 H Assessment and Plan Assessment Anesthesia Assessment: Chart Reviewed Final Anesthetic Review Family History of Problems with Anesthesia: No History of Problems with Anesthesia: No Documented by User: Dariel Joseph MD 08/30/22 09:23 [facility] Past Medical History Medical History Anxiety Asthma Asthma Bronchitis Chronic GERD Depression Diabetes HTN (hypertension) Hyperlipidemia New abnormality on chest x-ray Family History Family History Father No problems noted. Mother Hx of breast cancer Sister Diabetes Maternal Aunt Heart problem Surgical History Surgical History Hx of colonoscopy Hx of esophagogastroduodenoscopy Hx of hernia repair Hx of repair of rotator cuff Hx of toe surgery Social History Social History Household Members: Spouse Housing: Apartment Alcohol intake: unknown Patient Tobacco Use Status: Former Tobacco user Years Smoked: 20 yrs ( quit 8 years ago) Second Hand Smoke Exposure: Yes Use of substances other than those prescribed or required for medical reasons: No Are you DNR?: No Advance Directives: No Advance Directives Information Provided: Yes service: No Current occupational status: retired [employer] Allergies Allergy/AdvReac Type Severity Reaction Status Date / Time No Known Allergies Allergy Verified 07/11/22 14:28 Home Medications Medication Instructions Recorded Confirmed Last Taken Type lorazepam 0.5 mg tablet 0.5 mg PO DAILY 12/04/19 08/25/22 10/11/21 History metformin 1,000 mg tablet 1,000 mg PO BID 12/04/19 08/25/22 10/11/21 History montelukast 10 mg tablet 10 mg PO DAILY 12/04/19 08/25/22 10/11/21 History sertraline 100 mg tablet 200 mg PO DAILY 12/04/19 08/25/22 10/11/21 History atorvastatin 20 mg tablet 20 mg PO BEDTIME 07/06/20 08/25/22 10/10/21 History gabapentin 300 mg capsule 300 mg PO BID 07/06/20 08/25/22 10/11/21 History pioglitazone 30 mg tablet 30 mg PO DAILY@1200 07/06/20 08/25/22 10/11/21 History eszopiclone 3 mg tablet 3 mg PO BEDTIME PRN insomnia 09/08/20 08/25/22 10/10/21 History aspirin 81 mg tablet,delayed 81 mg PO DAILY 11/11/20 08/25/22 10/11/21 History release blood sugar diagnostic (FreeStyle #10 ea 11/11/20 10/12/21 10/11/21 History Lite Strips) pen needle, diabetic 31 gauge x #1,200 ea 11/11/20 10/12/21 10/11/21 History 07/11 (UltiCare Pen Needle) empagliflozin 25 mg tablet 25 mg PO DAILY 10/11/21 08/25/22 10/11/21 History (Jardiance) insulin glargine 100 unit/mL (3 36 unit subcut BEDTIME 11/15/21 08/25/22 Unknown History mL) subcutaneous pen albuterol sulfate 90 mcg/actuation 0 mcg inhalation Q4H shortness of 05/29/22 08/25/22 Unknown History aerosol inhaler (Ventolin HFA) breath nebulizers 05/29/22 Unknown History Exam Airway Mallampati Class: II TM Dist: >3cm Neck ROM: Full Denture: Upper Heart: ok Lungs: ok Assessment and Plan Assessment Anesthesia Assessment: Anesthesia Plan Discussed Final Anesthetic Review NPO: Yes ASA Class: III Final Preanesthetic Review: No Changes in Pt Med Stat, Meds/Allgs Chart Reviewed, Consent Obtained/Reviewed and Anes Risks/Benef Reviewed Patient Risk: Intermediate Procedure Risk: Intermediate Anesthetic Plan Anesthetic Plan: MAC: and Agree w/ Assess. and Plan Disposition: Standard PACU
[2022-08-30 08:40] VITALS: BP 104/68; PULSE 85; RESP 16; TEMP 36.9; O2SAT 97
--- NOTE | 2022-08-30 09:29 | MHC.SHP ---
Pre-Procedural Eval Section A Date of Service: 08/30/22 Section B Chief Complaint: dysphagia Relevant Family History (Specify if Yes): No Relevant Social History: None Present Medications: see Short Stay Collaborative assessment Medical History: Significant History (Anxiety Asthma Asthma Bronchitis Chronic GERD Depression Diabetes HTN (hypertension) Hyperlipidemia) History of Previous Operations: Relevant previous surgery/procedure and date(s) (Hx of colonoscopy Hx of esophagogastroduodenoscopy Hx of hernia repair Hx of repair of rotator cuff Hx of toe surgery) Allergies: Allergies Allergy/AdvReac Type Severity Reaction Status Date / Time No Known Allergies Allergy Verified 07/11/22 14:28 Review of Systems Sugical H&P ROS: Negative: Constitution, Cardiovascular, Respiratory, Neurological, Psychiatric, Hem-Onc, Allergic/Immunologic, Gastrointestinal, Genitourinary, Musculoskeletal, Integumentary, Endocrine and Eyes/Ears/Nose/Throat Exam Surgical H&P Exam: Normal: HEENT, Normal: Heart, Normal: Lungs, Normal: Extremities, Normal: Abdomen, Normal: Skin and Normal: Neurological Plan Diagnosis/Plan: Unchanged I have reviewed the history and physical and performed a pertinent physical examination on my patient. No changes have occurred unless specified. Time Spent With Patient Time: Total time managing care of this patient today ____ minutes.
--- NOTE | 2022-08-30 09:34 | W.PM.OPN ---
Operative Note Operative Note Date of Service: 08/30/22 Narrative: Procedure Description: EGD Indication: dysphagia Anesthesia: MAC FLEXIBLE TRANSORAL UPPER GASTROINTESTINAL ENDOSCOPY UPPER ENDOSCOPY Consent: Indications for the procedure and potential complications of bleeding, perforation, reaction to medications and missed diagnosis were discussed with the patient and informed consent was obtained. Instrument: Olympus GIF H 190 J mid size upper endoscope Monitoring: Vital signs and clinical assessment, continuous EKG monitoring, Pulse oximetry, Carbon Dioxide monitoring and blood pressure monitoring were done throughout the procedure. Procedure: The patient was placed in the left lateral decubitis position and pre-procedure medications were administered and a bite block was placed. The endoscope was inserted into the mouth and advanced under direct vision to the third part of duodenum. A careful inspection was made as the upper endoscope was withdrawn including a retroflexed examination of the proximal stomach; Findings and interventions are described below. Findings: Larynx:normal Esophagus: GE junction at 38 cm, diaphragm hiatus at 38 cm, mild esophagitis at GEJ, bx taken from GEJ, distal and proximal esophagus. Ballon dilation done at GEJ and UEs to 19 mm, no tears seen Stomach: Patchy gastric erythema with scarring. Biopsies were obtained. Grade 2 flap valve on retroflexed examination of the cardia. Duodenum: Normal bulb and descending duodenum, bx taken Intervention: Biopsies as noted above, balloon dilation Impression/Findings: atrophic gastritis esophagitis PLAN: await bx results optimize PPI use
[2022-08-30 10:07] VITALS: BP 132/80; PULSE 98; RESP 16; TEMP 36.3; O2SAT 98
[2022-08-30 10:22] VITALS: BP 136/85; PULSE 93; RESP 16; TEMP 36.3; O2SAT 94
== END 2022-08-30 11:11 | disposition home or self-care (01) ==
PROVIDERS: PCP Internal Medicine; Visit Provider Internal Medicine Gastroenterology
PROC: 0DJ08ZZ Inspection of Upper Intestinal Tract, Via Natural or Artificial Opening Endoscopic (ICD-10-PCS; CPT 43235; principal; 2022-08-30 10:00)
DX: R13.10 Dysphagia, unspecified (principal); K20.80 Other esophagitis without bleeding; K44.9 Diaphragmatic hernia without obstruction or gangrene; K31.84 Gastroparesis; K29.50 Unspecified chronic gastritis without bleeding; K21.9 Gastro-esophageal reflux disease without esophagitis; R14.0 Abdominal distension (gaseous); K58.1 Irritable bowel syndrome with constipation; I10 Essential (primary) hypertension; E78.5 Hyperlipidemia, unspecified; E11.9 Type 2 diabetes mellitus without complications; J45.909 Unspecified asthma, uncomplicated; Z79.4 Long term (current) use of insulin; Z79.82 Long term (current) use of aspirin; Z79.899 Other long term (current) drug therapy; Z87.891 Personal history of nicotine dependence
CPT/HCPCS: 43249; 43239; 82947; 88305; 88342; C1726

== ENCOUNTER 2022-09-13 12:30 | Outpatient (AMB) | payer OTHER, SELFPAY ==
--- NOTE | 2022-09-13 12:35 | A.OFFVIS_ITS ---
Intake Vital Signs 09/13/22 12:37 Height 5 ft 9 in Weight 224 lb BMI 33.1 BP 125/71 Blood Pressure Location Lt brachial Position Sitting Pulse 69 Intake Visit Reasons: S/p egd-Strauss Intake Note: Patient follow up for EGD results. Patient denies any GI issues. Loan Originator Required: Yes [place] [facility] [place] Accompanied by: Self / Same As Patient Allergies No Known Allergies Allergy (Verified 09/13/22 12:34) HPI S/p egd-Strauss HPI Details Assessment & Plan (1) Dysphagia: ?Comment: Lack of neuromuscular coordination referred to speech therapy, but also has benefited from dilation as of his 2021 EGD ?Code(s): R13.10 - Dysphagia, unspecified ?Plan: Romanian #Amber LIve The patient tells me today that his swallowing difficulties of return.? This is despite being adherent to all of his medications to try to control his reflux disease. He continues on his Reglan and pantoprazole along with simethicone the senna moves his bowels well. At this point will try to get him for an [facility] EGD for repeat dilation and he is quite agreeable to this. He feels that his asthma is well controlled and denies any cardiac problems.? There are no prior problems with anesthesia or sedation.? There are no infectious disease problems. At this point I will see him after the [facility] EGD to evaluate his response.? His last course of dilation x2 I year ago lead me to believe he may need serial dilations again at this point (2) Gastroparesis: ?Code(s): K31.84 - Gastroparesis (3) GERD (gastroesophageal reflux disease): ?Code(s): K21.9 - Gastro-esophageal reflux disease without esophagitis (4) Tubular adenoma of colon: ?Comment: 2020 scope TA removed repeat 5 years ?Code(s): D12.6 - Benign neoplasm of colon, unspecified (5) Irritable bowel syndrome with constipation: ?Code(s): K58.1 - Irritable bowel syndrome with constipation ? ? ? Orders: Orders Comprehensive Met. Panel 07/11/22 R13.10 - Dysphagia , unspecified ? Complete Blood Cou nt Auto Diff 07/11/22 R13.10 - Dysphagia , unspecified ? Medications: Refilled metoclopramide HCl 10 mg? PO TID 90 t abs 6RF ? ? simethicone 180 mg? PO QID PRN 90 caps 6RF for g as K21.9 - Gastro-eso phageal reflux dis ease without esoph agitis, K58.1 - Ir ritable bowel synd jan with constipa tion, R14.0 - Abdo hector distension ( gaseous) ? sennosides (senna) 17.2 mg (2 x 8.6 m g) PO BEDTIME 60 t abs 6RF for consti pation ? ? pantoprazole 40 mg? PO QAM 30 t abs 6RF ? LABS: Laboratory Tests 07/13/22 07/13/22 13:56 13:56 WBC 10.7 Hgb 14.2 Hct 44.3 Plt Count 238 Estimated GFR 48 Total Bilirubin 0.3 AST 24 ALT 26 Alkaline Phosphata se 68 EGD 08/30/22 Findings: Larynx:normal Esophagus: GE junction at 38? cm, diaphragm hiatus at 38 cm, mild esophagitis at GEJ, bx taken from GEJ, distal and proximal esophagus. Ballon dilation done at GEJ and UEs to 19 mm, no tears seen Stomach: Patchy gastric erythema with scarring. Biopsies were obtained. Grade 2 flap valve on retroflexed examination of the cardia. Duodenum: Normal bulb and descending duodenum, bx taken Intervention: Biopsies as noted above, balloon dilation Impression/Findings: atrophic gastritis esophagitis PLAN: await bx results optimize PPI use Dictated By: Varsha Strauss MD Signed By: <Electronically signed by Varsha Strauss MD> 08/30/22 BIOPSY Collected: 08/30/22 [facility] Received: 08/30/22 ADDENDUM REPORTAddendum Addendum #1 (B): Immunostain for H. pylori is negative with appropriate control. Electronically Signed By: Jaleesa Lam ? 08/31/221907 Diagnosis A.? Duodenum, biopsy:? Duodenal mucosa with preserved villi and no specific change.? B.? Stomach, biopsy:? Gastric antral and body mucosa with congestion, mild reactive changes, minimal chronic inactive gastritis and features suggesting proton pump inhibitor effect; negative for intestinal metaplasia and dysplasia (see comment).? C.? Gastroesophageal junction, biopsy:? Columnar mucosa with mild chronic inactive inflammation and scant squamous epithelium; negative for intestinal metaplasia and dysplasia. D.? Esophagus, distal, biopsy:? Squamous mucosa with no specific change; no columnar mucosa present.? E.? Esophagus, proximal, biopsy:? Squamous mucosa with no specific change; no columnar mucosa present. Comment: (B):? H pylori stain pending; addendum to follow. TODAY'S VISIT Romanian #Augie Godinez He is having more trouble swallowing since the procedure, with a feeling of irritation and little lumps in the upper throat. He DID have the upper GES dilated, so this may be remaining irritation. He continues on he protonix 40m gqd, ad I will add famotidine qhs and magic mouthwash to try to calm this down. His swallowing is WORSE since the procedure - which is not our optimal outcome, but I have seen this happen before. He continues on his reglan 10 mg 3 times a day, his senna, simethicone.. ROV 2 weeks. [facility] Medical History Anxiety Asthma Asthma Bronchitis Chronic GERD Depression Diabetes HTN (hypertension) Hyperlipidemia New abnormality on chest x-ray Surgical History Hx of colonoscopy Hx of esophagogastroduodenoscopy Hx of hernia repair Hx of repair of rotator cuff Hx of toe surgery Family History Father No problems noted. Mother Hx of breast cancer Sister Diabetes Maternal Aunt Heart problem Social History Household Members: Spouse Housing: Apartment Alcohol intake: unknown Patient Tobacco Use Status: Former Tobacco user Years Smoked: 20 yrs ( quit 8 years ago) Second Hand Smoke Exposure: Yes service: No Current occupational status: retired Review of Systems Const Denies fatigue, Denies fever(s), Denies night sweats, Denies poor appetite and Denies weight loss Eyes Details: glasses Reports requires corrective lenses ENT Reports Normal hearing present, Denies dental pain, Reports dysphagia, Denies hearing loss, Denies mouth pain, Denies odynophagia, Denies throat swelling, Denies tongue swelling and Reports other (Dentition adequate) Card Reports no additional complaints Resp Reports no additional complaints GI Denies abdominal pain, Denies melena, Denies bloating, Denies hematochezia, Reports constipation, Denies GI cramping, Reports dysphagia, Denies excessive flatus, Denies early satiety, Reports heartburn, Denies diarrhea, Denies nausea, Denies odynophagia, Denies vomiting and Denies hematemesis Skin/Breast Denies pruritus, Denies lesions, Denies rash and Denies jaundice Neuro Reports Normal hearing present and Denies Abnormal speech present Endo Denies fatigue Aller/Immun Denies throat swelling and Denies tongue swelling Physical Exam Vital Signs: Last Vital Signs Pulse 69 09/13/22 12:37 BP 125/71 09/13/22 12:37 BMI result Body Mass Index 33.1 Const General: cooperative, no acute distress, well developed and well groomed Nutritional Appearance: well nourished and overweight Orientation/consciousness: oriented to person, oriented to place and oriented to time Limitations: language barrier HEENT Head: Yes normocephalic and Yes atraumatic Eyes General: appearance normal, both eyes and all related structures Pupils: Equal, round and reactive pupils present Neck Neck: Yes normal visual inspection and Yes no lymphadenopathy Thyroid: Thyroid normal Resp Effort & Inspection: normal respiratory effort and able to speak in complete sentences Auscultation: clear to auscultation bilaterally Cardio Rate: regular rate Rhythm: regular rhythm Heart sounds: Normal, physiologic split S2 sound present Peripheral pulses: radial pulses present and posterior tibial pulses present GI Inspection: No distended and No Abdominal panniculus present Palpation (GI): Soft to palpation, nontender, no guarding, not rigid and No hepatosplenomegaly present Percussion: Yes normal to percussion Auscultation: normal bowel sounds Rectal Exam - Male: Yes deferred Skin General skin exam: no rashes or lesions noted, turgor normal, skin not dry, no jaundice, No spider nevi and no striae Rashes: no rashes Nails: normal Neuro General: oriented to person, oriented to place and oriented to time Cranial nerves: Yes Equal, round and reactive pupils present and Yes Normal hearing present Speech: No Abnormal speech present Extrem General: Yes normal to inspection, No clubbing, No cyanosis and No edema Psych Appearance: grossly normal and well kempt Mental Status: mental status grossly normal Speech and movement: Normal speech and movement present Affect: normal affect Attitude: cooperative Thought process: Normal thought process present and not confabulating Thought content: Normal thought content present Insight: Limited insight present (Psych) Judgement: Limited judgement present (Psych) Assessment & Plan Assessment & Plan (1) Dysphagia: Comment: Lack of neuromuscular coordination referred to speech therapy, but also has benefited from dilation as of his 2021 EGD Code(s): R13.10 - Dysphagia, unspecified Plan: Romanian #Loreana Live He is having more trouble swallowing since the procedure, with a feeling of irritation and little lumps in the upper throat. He DID have the upper GES dilated, so this may be remaining irritation. He continues on he protonix 40m gqd, ad I will add famotidine qhs and magic mouthwash to try to calm this down. His swallowing is WORSE since the procedure - which is not our optimal outcome, but I have seen this happen before. He continues on his reglan 10 mg 3 times a day, his senna, simethicone.. ROV 2 weeks. . (2) GERD (gastroesophageal reflux disease): Code(s): K21.9 - Gastro-esophageal reflux disease without esophagitis Medications: New Magic Mouthwash Diphen/Lido/Antacid 1:1:1 Lidocaine Viscous 2 % 80mL; diphenhydramine 12.5 mg/5 mL 80mL; aluminum-mag hydrox-simeth [id number]/5mL 80mL 10 mL PO TID 240 mL 1RF R13.10 - Dysphagia, unspecified famotidine (Pepcid) 40 mg PO BEDTIME 30 tabs 3RF K21.9 - Gastro-esophageal reflux disease without esophagitis Coding Level of Care Code Est Pt Level 3 (64529) Diagnoses Dysphagia R13.10 GERD (gastroesophageal reflux disease) K21.9
[2022-09-13 12:37] VITALS: BP 125/71; PULSE 69; BMI 33.1
== END 2022-09-13 12:57 | disposition home or self-care (01) ==
PROVIDERS: Visit Provider Nurse Practitioner
DX: R13.10 Dysphagia, unspecified (principal); K21.9 Gastro-esophageal reflux disease without esophagitis
CPT/HCPCS: 99213

== ENCOUNTER → 2022-09-13 12:30 | Outpatient (BNVA) | payer OTHER, SELFPAY | PROVIDERS: Visit Provider Nurse Practitioner | DX: R13.10 Dysphagia, unspecified (principal); K31.84 Gastroparesis; K21.9 Gastro-esophageal reflux disease without esophagitis; D12.6 Benign neoplasm of colon, unspecified; K58.1 Irritable bowel syndrome with constipation | CPT/HCPCS: 99212 ==

== ENCOUNTER 2022-09-28 13:10 | Outpatient (AMB) | payer OTHER, SELFPAY ==
--- NOTE | 2022-09-28 13:13 | MHC.OFFVIS ---
Intake Vital Signs 09/28/22 13:18 Height 5 ft 9 in Weight 197 lb 8.547 oz BMI 29.2 BP 109/68 Blood Pressure Location Lt brachial Position Sitting Pulse 106 H Intake Visit Reasons: 2 week follow up Intake Note: Patient presents to in office visit today in follow up of dysphagia. CC: Patient reports a little bit of improvement when swallowing with medication given. Patient states he did not received the mouthwash. Denies any new GI symptoms today. Allergies No Known Allergies Allergy (Verified 09/13/22 12:34) HPI 2 week follow up HPI Details Assessment & Plan (1) Dysphagia: ?Comment: Lack of neuromuscular coordination referred to speech therapy, but also has benefited from dilation as of his 2021 EGD ?Code(s): R13.10 - Dysphagia, unspecified ?Plan: Norwegian #Augie Godinez He is having more trouble swallowing since the procedure, with a feeling of irritation and little lumps in the upper throat. He DID have the upper GES dilated, so this may be remaining irritation. He continues on he protonix 40m gqd, ad I will add famotidine qhs and magic mouthwash to try to calm this down. His swallowing is WORSE since the procedure - which is not our optimal outcome, but I have seen this happen before. He continues on his reglan 10 mg 3 times a day, his senna, simethicone.. ROV 2 weeks. . (2) GERD (gastroesophageal reflux disease): ?Code(s): K21.9 - Gastro-esophageal reflux disease without esophagitis ? ? ? Medications: New Magic Mouthwash Di phen/Lido/Antacid 1:1:1 ?? Lidocaine Viscous 2 % 80mL; diphenhydramine 1 2.5 mg/5 mL 80mL; aluminum-mag hydro x-simeth 400mg-400 mg-40mg/5mL 80mL 10 mL? PO TID 240 mL 1RF R13.10 - Dysphagia , unspecified ? famotidine (Pepcid ) TODAY'S VISIT Norwegian #CarlosNilson He never received the magic mouthwash. While his swallowing has improved a bit, he still has food sticking around the level of the larynx that bothers him - never with liquids. He has some problems with swallowing coordination in the past and was referred to speech therapy, and I think we will repeat the mod barium swallow with speech therapy to see if anything else can be done. He continues on his pantoprazole in the morning and famotidine at night, reglan 10 mg 3 times a day, his senna, simethicone. ROV after mod barium swallow. [facility] Medical History Anxiety Asthma Bronchitis Chronic GERD Depression Diabetes HTN (hypertension) Hyperlipidemia New abnormality on chest x-ray Surgical History Hx of colonoscopy Hx of esophagogastroduodenoscopy Hx of hernia repair Hx of repair of rotator cuff Hx of toe surgery Family History Father No problems noted. Mother Hx of breast cancer Sister Diabetes Maternal Aunt Heart problem Social History Household Members: Spouse Housing: Apartment Alcohol intake: unknown Patient Tobacco Use Status: Former Tobacco user Years Smoked: 20 yrs ( quit 8 years ago) Second Hand Smoke Exposure: Yes service: No Current occupational status: retired Review of Systems Const Denies fatigue, Denies fever(s), Denies night sweats, Denies poor appetite and Denies weight loss Eyes Details: glasses Reports requires corrective lenses ENT Reports Normal hearing present, Denies dental pain, Reports dysphagia, Denies hearing loss, Denies mouth pain, Denies odynophagia, Denies throat swelling, Denies tongue swelling and Reports other (Dentition adequate) Card Reports no additional complaints Resp Reports no additional complaints GI Denies abdominal pain, Denies melena, Denies bloating, Denies hematochezia, Reports constipation, Denies GI cramping, Reports dysphagia, Denies excessive flatus, Denies early satiety, Reports heartburn, Denies diarrhea, Denies nausea, Denies odynophagia, Denies vomiting and Denies hematemesis Skin/Breast Denies pruritus, Denies lesions, Denies rash and Denies jaundice Neuro Reports Normal hearing present and Denies Abnormal speech present Endo Denies fatigue Aller/Immun Denies throat swelling and Denies tongue swelling Physical Exam Vital Signs: Last Vital Signs Pulse 106 H 09/28/22 13:18 BP 109/68 09/28/22 13:18 BMI result Body Mass Index 29.2 Const General: cooperative, no acute distress, well developed and well groomed Nutritional Appearance: well nourished and obese centrally obese Orientation/consciousness: oriented to person, oriented to place and oriented to time Limitations: language barrier HEENT Head: Yes normocephalic and Yes atraumatic Eyes General: appearance normal, both eyes and all related structures Pupils: Equal, round and reactive pupils present Neck Neck: Yes normal visual inspection and Yes no lymphadenopathy Thyroid: Thyroid normal Resp Effort & Inspection: normal respiratory effort and able to speak in complete sentences Auscultation: clear to auscultation bilaterally Cardio Rate: regular rate Rhythm: regular rhythm Heart sounds: Normal, physiologic split S2 sound present Peripheral pulses: radial pulses present and posterior tibial pulses present GI Inspection: No distended, No Abdominal panniculus present and Yes obesity Palpation (GI): Soft to palpation, nontender, no guarding, not rigid and No hepatosplenomegaly present Percussion: Yes normal to percussion Auscultation: normal bowel sounds Rectal Exam - Male: Yes deferred Skin General skin exam: no rashes or lesions noted, turgor normal, skin not dry, no jaundice, No spider nevi and no striae Rashes: no rashes Nails: normal Neuro General: oriented to person, oriented to place and oriented to time Cranial nerves: Yes Equal, round and reactive pupils present and Yes Normal hearing present Speech: No Abnormal speech present Extrem General: Yes normal to inspection, No clubbing, No cyanosis and No edema Psych Appearance: grossly normal and well kempt Mental Status: mental status grossly normal Speech and movement: Normal speech and movement present Affect: normal affect Attitude: cooperative Thought process: Normal thought process present and not confabulating Thought content: Normal thought content present Insight: Limited insight present (Psych) Judgement: Limited judgement present (Psych) Assessment & Plan Assessment & Plan (1) Dysphagia: Comment: Lack of neuromuscular coordination referred to speech therapy, but also has benefited from dilation as of his 2021 EGD Code(s): R13.10 - Dysphagia, unspecified Plan: Norwegian #[id number], Nilson He never received the magic mouthwash. While his swallowing has improved a bit, he still has food sticking around the level of the larynx that bothers him - never with liquids. He has some problems with swallowing coordination in the past and was referred to speech therapy, and I think we will repeat the mod barium swallow with speech therapy to see if anything else can be done. He continues on his pantoprazole in the morning and famotidine at night, reglan 10 mg 3 times a day, his senna, simethicone. ROV after mod barium swallow. (2) GERD (gastroesophageal reflux disease): Code(s): K21.9 - Gastro-esophageal reflux disease without esophagitis (3) Gastroparesis: Code(s): K31.84 - Gastroparesis (4) Tubular adenoma of colon: Comment: 2019 scope TA removed repeat 5 years Code(s): D12.6 - Benign neoplasm of colon, unspecified (5) Abdominal bloating: Code(s): R14.0 - Abdominal distension (gaseous) (6) Irritable bowel syndrome with constipation: Code(s): K58.1 - Irritable bowel syndrome with constipation Orders: Orders FL barium swallow modified Today R13.10 - Dysphagia, unspecified Coding Level of Care Code Est Pt Level 3 (85853) Diagnoses Dysphagia R13.10 GERD (gastroesophageal reflux disease) K21.9 Gastroparesis K31.84 Tubular adenoma of colon D12.6 Abdominal bloating R14.0 Irritable bowel syndrome with constipation K58.1
[2022-09-28 13:18] VITALS: BP 109/68; PULSE 106; BMI 29.2
== END 2022-09-28 15:17 | disposition home or self-care (01) ==
PROVIDERS: PCP Internal Medicine; Visit Provider Nurse Practitioner
DX: R13.10 Dysphagia, unspecified (principal); K21.9 Gastro-esophageal reflux disease without esophagitis; K31.84 Gastroparesis; D12.6 Benign neoplasm of colon, unspecified; R14.0 Abdominal distension (gaseous); K58.1 Irritable bowel syndrome with constipation
CPT/HCPCS: 99213

== ENCOUNTER → 2022-09-28 13:10 | Outpatient (BNVA) | payer OTHER, SELFPAY | PROVIDERS: PCP Internal Medicine; Visit Provider Nurse Practitioner | DX: K21.9 Gastro-esophageal reflux disease without esophagitis (principal); K31.84 Gastroparesis; K58.1 Irritable bowel syndrome with constipation; R13.10 Dysphagia, unspecified; R14.0 Abdominal distension (gaseous); D12.6 Benign neoplasm of colon, unspecified | CPT/HCPCS: 99212 ==

== ENCOUNTER 2022-10-20 14:55 | Outpatient (REF) | payer OTHER, SELFPAY ==
[2022-10-20 18:04] LABS: Appearance Urine Clear; Color Urine Yellow; Glucose Urine UA >=1000 mg/dL (Negative); Leukocyte Esterase Urine Negative (Negative); Nitrite Urine Negative (Negative); PH 5.5 (5.0-9.0); Specific Gravity - Urine >= 1.030 (1.005-1.025); UMIC TRIGGER UA YES; Urine Blood Negative (Negative); Urine Ketones Negative (Negative); Urine Protein Negative (Neg-Trace)
[2022-10-20 18:07] LABS: Bacteria Urine None Seen (None Seen); Hyaline Casts Urine 0-2 /LPF (0-2); RBC Urine 0-2 /HPF (0-2); Squamous Epithelial Cell Urine 0-2 /HPF (0-2); WBC Urine 0-5 /HPF (0-5)
== END 2022-10-20 14:56 | disposition home or self-care (01) ==
LOC: HO.HHCL 14:55
PROVIDERS: Visit Provider Internal Medicine
DX: N50.811 Right testicular pain (principal)
CPT/HCPCS: 81001

== ENCOUNTER 2022-11-23 15:39 | Outpatient (REF) | payer OTHER, SELFPAY ==
[2022-11-23 17:22] LABS: MANUAL DIFF FLAG NO
[2022-11-23 17:39] LABS: Basophils Absolute Auto 0.1 X10*3/uL (0.0-0.2); Basophils Percent Auto 0.5 % (0-2); Eosinophils Absolute Auto 0.6 X10*3/uL (0.0-0.4); Eosinophils Percent Auto 5.2 % (0-4); Hematocrit 49.8 % (42.0-52.0); Hemoglobin 15.4 g/dl (14.0-18.0); Imm Gran Abs Auto 0.02 X10*3/uL (0.00-0.03); Imm Gran Pct Auto 0.2 % (0.0-0.4); Lymphocytes Absolute Auto 2.9 X10*3/uL (1.2-4.9); Lymphocytes Percent Auto 25.9 % (20-40); Mean Corpuscular HGB Conc 30.9 g/dl (31.0-36.0); Mean Corpuscular Hemoglobin 28.2 pg (27.0-33.0); Mean Corpuscular Volume 91.2 fL (80.0-98.0); Mean Platelet Volume 9.7 fL (9.4-12.4); Monocytes Absolute Auto 1.1 X10*3/uL (0.1-1.2); Monocytes Percent Auto 9.6 % (2-11); Neutrophils Absolute Auto 6.5 x10*3/uL (2.0-8.3); Neutrophils Percent Auto 58.6 % (45-73); Platelet Count 248 X10*3/uL (160-400); Red Blood Count 5.46 X10*6/uL (4.60-5.80); Red Cell Distribution Width 15.1 % (11.0-16.0)
[2022-11-23 18:10] LABS: Alanine Aminotransferase 18 U/L (0-40); Albumin Level 4.5 g/dL (3.5-5.0); Alkaline Phosphatase 56 U/L (39-117); Anion Gap 18 (12-20); Aspartate Amino Transferase 23 U/L (5-37); Bilirubin Direct 0.2 mg/dL (0.0-0.5); Bilirubin Total 0.3 mg/dL (0.0-1.0); Blood Urea Nitrogen 15 mg/dL (9-16); Calcium 10.1 mg/dL (8.4-10.2); Carbon Dioxide 21 mmol/L (22-29); Chloride 104 mmol/L (96-108); Estimated Glomerular Filt Rate > 60; Glucose Random 118 mg/dL (60-115); Potassium 4.5 mmol/L (3.3-5.1); Sodium 138 mmol/L (135-145); Total Protein 8.7 g/dL (6.5-8.0)
[2022-11-23 18:18] LABS: TSH reflex Free T4 1.18 uIU/mL (0.32-4.0)
[2022-11-23 18:26] LABS: Vitamin B12 382 pg/mL (200-900)
== END 2022-11-23 15:40 | disposition home or self-care (01) ==
LOC: HO.HHCL 15:39
PROVIDERS: Visit Provider Family Medicine
DX: R53.1 Weakness (principal)
CPT/HCPCS: 36415; 80048; 80076; 82607; 84443; 85025

== ENCOUNTER 2023-03-12 13:39 | Outpatient (AMB) | payer OTHER, SELFPAY ==
[2023-03-12 13:49] VITALS: BP 122/76; PULSE 103; O2SAT 96; BMI 29.8
--- NOTE | 2023-03-12 13:49 | MHC.OFFVIS ---
Intake Vital Signs 03/12/23 13:49 Height 5 ft 9 in Weight 201 lb 11.567 oz BMI 29.8 BP 122/76 Blood Pressure Location Lt brachial Position Sitting Pulse 103 H Pulse Source Pulse Oximeter Pulse Oximetry (%) 96 Oxygen Delivery Method Room Air Intake Visit Reasons: Asthma Allergies No Known Allergies Allergy (Verified 03/12/23 13:52) HPI HPI Comments History of Present Illness Details The patient is a 62-year-old gentleman with a known history of asthma who is now stop listening his care at [facility]. Patient states that he has had asthma lifelong. He has been on Advair for many years with good response to the medication. He does have a rescue inhaler but typically does not use it more than twice a week. During the summer the patient started developing worsening respiratory symptoms and did go to the ER. He had an x-ray demonstrating airspace disease suggesting pneumonia and was treated accordingly for pneumonia and also an asthma exacerbation. Currently symptoms are better. He does have increased nasal congestion and cough. These is the season change. The patient did have allergy testing many years ago. will go ahead and retest his allergies to assess his asthma phenotype. 01/30/2022 the patient is here for a pulmonary follow-up visit. Overall the patient continues to do relatively well. He does have significant allergies. We did review his allergy testing and his IgE levels above 2000. He also had significant eosinophilia. Seems to be doing better while on Advair. However, he does not do well with genetics. I did send him the Advair HFA which I believe he would respond better to. The patient ultimately may need high-dose steroids in view of his significant allergies in eosinophilia. He also has been using his rescue inhaler. We did review his is pulmonary function studies which were reassuring With no evidence of any obstruction and a mild restrictive ventilatory defect. the patient also had chest x-ray. I did demonstrate a slight nodular opacity of 7 mm on the right hemithorax. Will go ahead and repeat that x-ray in the coming months. If is still present then will request a CT scan of the chest. The patient does have significant allergies and may benefit from further biologic or immunotherapy. Currently he is symptoms are well controlled. although I suspect that he has the propensity of worsening respiratory symptoms in the springtime. Therefore him come back in the springtime to readdress the question of biologic or immunotherapy. 05/29/2022 the patient is here for a pulmonary follow-up visit. The patient overall is doing well with his current respiratory therapy. No significant worsening asthma symptoms. He is responding well and has not required his rescue inhaler. In addition to this the patient did have a chest x-ray back in the fall demonstrating small right-sided nodular opacity. I did call him and did recommend he get an x-ray. He has not done as of yet. I did explain to him the findings of the x-ray and we did look at it together. The patient will get an x-ray today. If the nodular opacity continues to be present will get a CT scan of the chest. Otherwise patient is doing well on the current therapy. Plan to follow-up in the fall. He does have significant allergies but at this point he is medically optimize at this time and no additional therapies are warranted. 03/12/2023 the patient is here for sick visit. He is having worsening respiratory symptoms for the last 3 days. He did test negative for COVID. He has had worsening chest congestion and shortness breath. Complains of chest tightness and chest congestion with productive phlegm. He has been using his respiratory therapy partial resolution of the symptoms. Denies any fevers although he has had some chills and fatigue. We did review his chest x-ray that he had back in the spring demonstrating interval resolution the 7 mm nodular density noted. on examination right now he does have significant wheezing and rhonchi. Will go ahead and treat him for lower respiratory infection exacerbating his asthma. The patient should also get a chest x-ray to follow-up with his previous x-ray. If the patient is no better he will call the office further recommendations. [facility] Medical History (Updated 03/12/23 @ 21:26 by Pa Watson MD) New abnormality on chest x-ray Bronchitis Depression Diabetes Chronic GERD Anxiety Hyperlipidemia HTN (hypertension) Asthma Surgical History Hx of toe surgery Hx of repair of rotator cuff Hx of hernia repair Hx of colonoscopy Hx of esophagogastroduodenoscopy Family History Father No problems noted. Mother Hx of breast cancer Sister Diabetes Maternal Aunt Heart problem Social History Household Members: Spouse Housing: Apartment Alcohol intake: unknown Patient Tobacco Use Status: Former Tobacco user Years Smoked: 20 yrs ( quit 8 years ago) Second Hand Smoke Exposure: Yes service: No Current occupational status: retired Review of Systems Const Reports chills, Reports fatigue, Denies fever(s), Denies night sweats, Denies poor appetite and Denies weight loss Eyes Details: glasses Reports requires corrective lenses ENT Reports Normal hearing present, Denies dental pain, Denies hearing loss, Denies mouth pain, Reports nasal congestion, Reports nasal discharge, Denies throat swelling, Denies tongue swelling and Reports other (Dentition adequate) Card Reports no additional complaints and Reports dyspnea on exertion Resp Reports change in phlegm color, Reports chest congestion, Reports cough, Denies hemoptysis, Reports dyspnea on exertion and Reports wheezing GI Denies abdominal pain, Reports bloating and Reports heartburn Musc Reports no additional complaints Skin/Breast Denies pruritus, Denies lesions, Denies rash and Denies jaundice Neuro Reports Normal hearing present and Denies Abnormal speech present Endo Reports fatigue Aller/Immun Denies throat swelling, Denies tongue swelling and Reports wheezing Physical Exam Vital Signs: Last Vital Signs Pulse 103 H 03/12/23 13:49 BP 122/76 03/12/23 13:49 Pulse Ox 96 03/12/23 13:49 Oxygen Delivery Method Room Air 03/12/23 13:49 BMI result Body Mass Index 29.8 Const General: cooperative and no acute distress HEENT Head: Yes normocephalic and Yes atraumatic Eyes Pupils: Equal, round and reactive pupils present Neck Neck: Yes normal visual inspection Resp Effort & Inspection: normal respiratory effort Auscultation: rhonchi, wheezes and diminished lung sounds Cardio Rate: regular rate Rhythm: regular rhythm Heart sounds: Normal, physiologic split S2 sound present Peripheral pulses: radial pulses present and posterior tibial pulses present GI Palpation (GI): Soft to palpation Auscultation: normal bowel sounds Skin General skin exam: no rashes or lesions noted, turgor normal, skin not dry, no jaundice, No spider nevi and no striae Rashes: no rashes Nails: normal Neuro Cranial nerves: Yes Equal, round and reactive pupils present and Yes Normal hearing present Speech: No Abnormal speech present Extrem General: Yes normal to inspection, No clubbing, No cyanosis and No edema Psych Appearance: grossly normal and well kempt Mental Status: mental status grossly normal Speech and movement: Normal speech and movement present Affect: normal affect Attitude: cooperative Thought process: Normal thought process present and not confabulating Thought content: Normal thought content present Insight: Limited insight present (Psych) Judgement: Limited judgement present (Psych) Assessment & Plan Assessment & Plan (1) Asthma: Code(s): J45.909 - Unspecified asthma, uncomplicated Qualifiers: Asthma severity: moderate Asthma persistence: persistent Asthma complication type: with acute exacerbation Qualified Code(s): J45.41 - Moderate persistent asthma with (acute) exacerbation (2) GERD (gastroesophageal reflux disease): Code(s): K21.9 - Gastro-esophageal reflux disease without esophagitis Qualifiers: Esophagitis presence: without esophagitis Qualified Code(s): K21.9 - Gastro-esophageal reflux disease without esophagitis (3) Cough: Code(s): R05.9 - Cough, unspecified Qualifiers: Cough type: unspecified Qualified Code(s): R05.9 - Cough, unspecified (4) Bronchitis: Code(s): J40 - Bronchitis, not specified as acute or chronic Plan Prednisone taper start Augmentin xopenex as needed continue Advair HFA PAOLA as needed (ventolin) CXR continue Loratidine continue singulair F/U 6 months Orders: Orders XR chest 2V Today R05.9 - Cough, unspecified Medications: New prednisone PO daily; Take 2 tabs daily x 5 days, then 1 tablet daily x 5 days 10 days 15 tabs 0RF amoxicillin-pot clavulanate 875-125 mg 1 tab PO BID 10 days 20 tabs 0RF amoxicillin-pot clavulanate 875-125 mg 1 tab PO BID 10 days 20 tabs 0RF levalbuterol HCl 1.25 mg (3 mL) inhalation BID 30 days 180 mL 0RF J44.9 - Chronic obstructive pulmonary disease, unspecified prednisone PO daily; Take 2 tabs daily x 5 days, then 1 tablet daily x 5 days 10 days 15 tabs 0RF levalbuterol HCl 1.25 mg (3 mL) inhalation BID 30 days 180 mL 0RF J44.9 - Chronic obstructive pulmonary disease, unspecified Refilled sodium chloride 0.9% 3 mL inhalation BID 180 mL 10RF Coding Level of Care Code Est Pt Level 4 (39749) Diagnoses Moderate persistent asthma with acute exacerbation J45.41 Asthma severity: moderate Asthma persistence: persistent Asthma complication type: with acute exacerbation Gastroesophageal reflux disease without esophagitis K21.9 Esophagitis presence: without esophagitis Cough, unspecified type R05.9 Cough type: unspecified Bronchitis J40 Time Spent (min) 16
== END 2023-03-12 14:08 | disposition home or self-care (01) ==
PROVIDERS: PCP Internal Medicine; Visit Provider Hospitalist
DX: J45.41 Moderate persistent asthma with (acute) exacerbation (principal); K21.9 Gastro-esophageal reflux disease without esophagitis; R05.9 Cough, unspecified; J40 Bronchitis, not specified as acute or chronic
CPT/HCPCS: 99214

== ENCOUNTER → 2023-03-12 13:39 | Outpatient (BNVA) | payer OTHER, SELFPAY | PROVIDERS: PCP Internal Medicine; Visit Provider Hospitalist | DX: J45.41 Moderate persistent asthma with (acute) exacerbation (principal); J40 Bronchitis, not specified as acute or chronic; K21.9 Gastro-esophageal reflux disease without esophagitis; R05.9 Cough, unspecified | CPT/HCPCS: 99212 ==

== ENCOUNTER 2023-03-20 11:01 | Emergency (ER) | payer OTHER, SELFPAY ==
--- NOTE | ~2023-03-20 | XR_ITS ---
EXAMINATION: XR CHEST CLINICAL INFORMATION: Chest pain COMPARISON: 05/29/2022 TECHNIQUE: 2 views of the chest were obtained. FINDINGS: No significant abnormality is noted involving the heart, lungs, mediastinum, bony thorax or soft tissues. Some minimal bibasilar atelectasis is present. XR/XR chest 2V IMPRESSION: Unremarkable examination.
[2023-03-20 11:04] VITALS: BP 126/80; PULSE 106; RESP 22; TEMP 36.6; O2SAT 94; BMI 27.9
--- NOTE | 2023-03-20 11:06 | ECG_ITS ---
Test Reason : CHEST PAIN Blood Pressure : / mmHG Vent. Rate : 096 BPM Atrial Rate : 096 BPM P-R Int : 122 ms QRS Dur : 078 ms QT Int : 324 ms P-R-T Axes : 045 011 014 degrees QTc Int : 409 ms Normal sinus rhythm Normal ECG When compared to the previous EKG of No significant changes seen Referred By: Generic ED Physician Electronically Signed By:Gavin Powell
[2023-03-20 12:04] LABS: MANUAL DIFF FLAG NO
[2023-03-20 12:07] LABS: Basophils Absolute Auto 0.1 X10*3/uL (0.0-0.2); Basophils Percent Auto 0.3 % (0-2); Eosinophils Absolute Auto 0.6 X10*3/uL (0.0-0.4); Eosinophils Percent Auto 3.5 % (0-4); Hemoglobin 14.2 g/dl (14.0-18.0); Imm Gran Abs Auto 0.18 X10*3/uL (0.00-0.03); Imm Gran Pct Auto 1.1 % (0.0-0.4); Lymphocytes Absolute Auto 3.5 X10*3/uL (1.2-4.9); Lymphocytes Percent Auto 22.2 % (20-40); Mean Corpuscular HGB Conc 32.3 g/dl (31.0-36.0); Mean Corpuscular Hemoglobin 28.1 pg (27.0-33.0); Mean Corpuscular Volume 87.1 fL (80.0-98.0); Mean Platelet Volume 8.9 fL (9.4-12.4); Monocytes Absolute Auto 1.5 X10*3/uL (0.1-1.2); Monocytes Percent Auto 9.1 % (2-11); Neutrophils Absolute Auto 10.1 x10*3/uL (2.0-8.3); Neutrophils Percent Auto 63.8 % (45-73); Platelet Count 273 X10*3/uL (160-400); Red Blood Count 5.05 X10*6/uL (4.60-5.80); Red Cell Distribution Width 15.2 % (11.0-16.0); White Blood Count 15.9 X10*3/uL (4.8-10.8)
[2023-03-20 12:20] LABS: Anion Gap 17 (12-20); Blood Urea Nitrogen 24 mg/dL (9-16); Calcium 9.6 mg/dL (8.4-10.2); Carbon Dioxide 23 mmol/L (22-29); Chloride 101 mmol/L (96-108); Creatinine Clr Calc Pharmacy 62.2; Estimated Glomerular Filt Rate 56; Glucose Random 206 mg/dL (60-115); Potassium 4.2 mmol/L (3.3-5.1); Sodium 137 mmol/L (135-145)
[2023-03-20 12:22] LABS: COVID-19 Test Negative (Negative); IDNOW Serial# 152EDE1D; IDNOW Serial# 9DB6401D; Influenza A Negative (Negative); Influenza B2 Negative (Negative)
[2023-03-20 12:32] LABS: Troponin-I High Sensitivity < 2.7 ng/L (<3.5-35.0)
--- NOTE | 2023-03-20 13:00 | ED.URI ---
HPI - URI/Sore Throat General Chief Complaint: Upper Respiratory Symptoms Stated Complaint: Chest pain, SOB Time Seen by Provider: 03/20/23 20:25 Source: patient, RN notes reviewed, old records reviewed and hourly sign language interpreter Mode of arrival: ambulatory Limitations: language barrier History of Present Illness HPI Narrative: 62-year-old male past medical history significant for asthma, diabetes, GERD, hyperlipidemia presents for evaluation of shortness of breath, chest tightness and cough. Patient reports his symptoms started about 2 weeks ago. 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 Watson who prescribed the patient saline nebulizers, Augmentin, and prednisone The patient reports that he finished these prescriptions but ?do not feel any better. ? He has been using his albuterol nebulizer as well Denies any leg swelling, fevers, chills No history of DVT or PE Related Data Home Medications Medication Instructions Recorded Confirmed lorazepam 0.5 mg tablet 0.5 mg PO DAILY 12/04/19 08/25/22 metformin 1,000 mg tablet 1,000 mg PO BID 12/04/19 08/25/22 montelukast 10 mg tablet 10 mg PO DAILY 12/04/19 08/25/22 sertraline 100 mg tablet 200 mg PO DAILY 12/04/19 08/25/22 atorvastatin 20 mg tablet 20 mg PO BEDTIME 07/06/20 08/25/22 gabapentin 300 mg capsule 300 mg PO BID 07/06/20 08/25/22 pioglitazone 30 mg tablet 30 mg PO DAILY@1200 07/06/20 08/25/22 eszopiclone 3 mg tablet 3 mg PO BEDTIME PRN insomnia 09/08/20 08/25/22 aspirin 81 mg tablet,delayed 81 mg PO DAILY 11/11/20 08/25/22 release blood sugar diagnostic (FreeStyle #10 ea 11/11/20 10/12/21 Lite Strips) pen needle, diabetic 31 gauge x #1,200 ea 11/11/20 10/12/2107/11 (UltiCare Pen Needle) empagliflozin 25 mg tablet 25 mg PO DAILY 10/11/21 08/25/22 (Jardiance) insulin glargine 100 unit/mL (3 36 unit subcut BEDTIME 11/15/21 08/25/22 mL) subcutaneous pen nebulizers 05/29/22 albuterol sulfate 90 mcg/actuation 2 inh inhalation Q4H shortness of 09/28/22 aerosol inhaler (Ventolin HFA) breath Previous Rx's Medication Instructions Recorded blood sugar diagnostic (FreeStyle #100 ea 05/05/21 Lite Strips) lancets 28 gauge (FreeStyle #100 ea 05/05/21 Lancets) repaglinide 0.5 mg tablet 0.5 mg PO TID #90 tabs 08/10/21 albuterol sulfate 2.5 mg/3 mL 2.5 mg (3 mL) inhalation QID PRN 09/13/21 (0.083 %) solution for nebulization shortness of breath or wheezing #75 mL metoclopramide HCl 10 mg tablet 10 mg PO TID #90 tabs 07/11/22 pantoprazole 40 mg tablet,delayed 40 mg PO QAM #30 tabs 07/11/22 release Magic Mouthwash 10 ml PO TID #240 mL 09/13/22 Diphen/Lido/Antacid 1:1:1 240 mL suspension loratadine 10 mg tablet 10 mg PO DAILY #90 tabs 11/17/22 famotidine 40 mg tablet 40 mg PO BEDTIME #90 tabs 01/26/23 sennosides 8.6 mg tablet (senna) 17.2 mg (2 x 8.6 mg) PO BEDTIME 01/26/23 for constipation #60 tabs simethicone 180 mg capsule 180 mg PO QID PRN for gas #90 caps 02/13/23 fluticasone propionate 115 2 puff inhalation Q12H #12 ea 02/20/23 mcg-salmeterol 21 mcg/actuation HFA inhaler (Advair HFA) amoxicillin 875 mg-potassium 1 tab PO BID 10 days #20 tabs 03/12/23 clavulanate 125 mg tablet levalbuterol HCl 1.25 mg/3 mL 1.25 mg (3 mL) inhalation BID 30 03/12/23 solution for nebulization days #180 mL prednisone 20 mg tablet See Rx Instructions PO DAILY 10 03/12/23 days #15 tabs sodium chloride 0.9 % for 3 ml inhalation BID #180 mL 03/12/23 nebulization Allergies Allergy/AdvReac Type Severity Reaction Status Date / Time No Known Allergies Allergy Verified 03/20/23 11:03 Review of Systems Constitutional: Constitutional: Denies chills, Denies fever(s) and Denies headache(s) Eyes: Eyes: Denies blurry vision ENT: Denies headache(s) Cardiovascular: Cardiovascular: Reports chest pain and Reports dyspnea Respiratory: Respiratory: Reports chest congestion, Reports cough, Reports pain on inspiration, Reports pain with cough, Reports dyspnea and Reports wheezing Gastrointestinal: Gastrointestinal: Denies abdominal pain, Denies nausea and Denies vomiting Musculoskeletal: Musculoskeletal: Denies back pain Integumentary/Breasts: Skin/Breast: Denies rash Neurologic: Denies headache(s) Psychiatric: Psychiatric: Denies suicidal ideation Allergic/Immunologic: Allergic/Immunologic: Reports wheezing PMFSH Past Medical History Medical History (Updated 03/20/23 @ 20:57 by Yves Abdul) New abnormality on chest x-ray Bronchitis Depression Diabetes Chronic GERD Anxiety Hyperlipidemia HTN (hypertension) Asthma Surgical History Hx of toe surgery Hx of repair of rotator cuff Hx of hernia repair Hx of colonoscopy Hx of esophagogastroduodenoscopy Family History Family History Father No problems noted. Mother Hx of breast cancer Sister Diabetes Maternal Aunt Heart problem Social History Social History Household Members: Spouse Housing: Apartment Alcohol intake: unknown Patient Tobacco Use Status: Former Tobacco user Years Smoked: 20 yrs ( quit 8 years ago) Second Hand Smoke Exposure: Yes Advance Directives: No Advance Directives Information Provided: No service: No Current occupational status: retired Physical Exam Vital Signs: Vital Signs: Last Vital Signs Temp 98 F 03/20/23 13:02 Pulse 73 03/20/23 13:16 Resp 22 H 03/20/23 13:16 BP 99/74 03/20/23 13:02 Pulse Ox 96 03/20/23 13:02 O2 Del Method Room Air 03/20/23 13:02 BMI result Body Mass Index 27.9 Const: General: healthy appearing, comfortable, no acute distress, alert and awake Nutritional Appearance: well nourished Orientation/consciousness: patient oriented x3 HEENT: Head: Yes normocephalic and Yes atraumatic Eyes: Eyelids: Yes eyelids normal Conjunctivae: conjunctivae normal Sclerae: sclerae normal Corneas: corneas normal Pupils: Equal, round and reactive pupils present EOM: EOMs intact bilaterally Neck: Neck: Yes full ROM Resp: Other: Faint expiratory wheeze bilaterally Effort & Inspection: normal respiratory effort, able to speak in complete sentences and not labored Auscultation: not clear to auscultation bilaterally Cardio: Rate: regular rate Rhythm: regular rhythm Skin: General skin exam: elasticity normal Neuro: General: patient oriented x3 Cranial nerves: Yes Equal, round and reactive pupils present and Yes Bilaterally intact EOM present Cognition (Neuro): normal cognition Course Course Course Narrative: RME: 62 year-old M w/ PMHx Asthma, DM, HLD, presenting to the ED c/o productive cough x2 weeks w/SOB & chest discomfort worse w/coughing & deep breathing. Admits to travel to [place] 1 mos ago. denies hx clots +diffuse exp wheeze appreciated w/persistent dry cough Labs, Viral testing, CXR ordered initially > d-dimer & ED Bronch protocol ordered Full HPI, ROS and PE to be performed by primary ED provider. Medications Administered Discontinued Medications Generic Name Dose Route Start Last Admin Trade Name Freq PRN Reason Stop Dose Admin Albuterol Sulfate 8 puff 03/20/23 13:11 03/20/23 13:14 Albuterol Sulfate 90 Mcg 8 Gm Inhaler INHALE 03/20/23 13:12 8 puff ONCE ONE Administration Albuterol/Ipratropium 3 ml 03/20/23 20:41 03/20/23 20:49 Albuterol/Iprat 2.5/0.5mg 3 Ml Ampul.Neb INHALE 03/20/23 20:42 3 ml ONCE ONE Administration Medical Decision Making Medical Decision Making [facility] Narrative: 62-year-old male presents for evaluation of shortness of breath, chest tightness and upper respiratory symptoms. I reviewed his workup, his chest x-ray is clear, his viral swab were negative. His troponin was negative. His symptoms are most consistent with viral etiology. He has already been on Augmentin and prednisone for an appropriate treatment for upper respiratory infection without improvement. Again, I suspect this is due to viral origin symptoms as opposed to bacterial source. The patient's vital signs are stable, he is well-appearing. His troponin is negative despite 2 weeks of chest pain, he rules out for ACS, his D-dimer was negative. Will give the patient a DuoNeb but I do not see in the indication to prescribe any further antibiotics or steroids. The patient may follow-up with his malted milk mixer, Dr. Watson Differential Diagnosis Differential Diagnoses: The differential diagnosis associated with the presentation includes Acute asthma exacerbation Upper respiratory infection Pneumonia PE ACS less likely Admission/Observation Consideration of admission/observation: Escalation of care including admission/observation considered Patient complaining of chest pain but ruled out for ACS Lab Data MDM Lab Attestation statement: I reviewed the patient's lab results. Leukocytosis to 15.9 K. This may related to prednisone use. No anemia. No significant electrolyte abnormalities. Troponin negative as above. Glucose also elevated 206 which is likely related to prednisone use as well 03/20/23 11:58 03/20/23 11:58 Labs: Lab Results 03/20/23 03/20/23 Range/Units 11:58 15:16 WBC 15.9 H (4.8-10.8) X10*3/uL RBC 5.05 (4.60-5.80) X10*6/uL Hgb 14.2 (14.0-18.0) g/dl Hct 44.0 (42.0-52.0) % MCV 87.1 (80.0-98.0) fL MCH 28.1 (27.0-33.0) pg MCHC 32.3 (31.0-36.0) g/dl RDW 15.2 (11.0-16.0) % Plt Count 273 (160-400) X10*3/uL MPV 8.9 L (9.4-12.4) fL Immature Gran % (Auto) 1.1 H (0.0-0.4) % Neut % (Auto) 63.8 (45-73) % Lymph % (Auto) 22.2 (20-40) % [place] % (Auto) 9.1 (2-11) % Eos % (Auto) 3.5 (0-4) % Baso % (Auto) 0.3 (0-2) % Lymph # (Auto) 3.5 (1.2-4.9) X10*3/uL [place] # (Auto) 1.5 H (0.1-1.2) X10*3/uL Eos # (Auto) 0.6 H (0.0-0.4) X10*3/uL Baso # (Auto) 0.1 (0.0-0.2) X10*3/uL Abs Immat Gran (auto) 0.18 H (0.00-0.03) X10*3/uL Absolute Neuts (auto) 10.1 H (2.0-8.3) x10*3/uL Absolute Nucleated RBC 0.000 (0.0-0.012) X10*3/uL Nucleated RBC % (auto) 0.0 (0.0-0.2) /100WBC D-Dimer High Sensitivty < 150 NG/ML Sodium 137 (135-145) mmol/L Potassium 4.2 (3.3-5.1) mmol/L Chloride 101 (96-108) mmol/L Carbon Dioxide 23 (22-29) mmol/L Anion Gap 17 (12-20) BUN 24 H (9-16) mg/dL Creatinine 1.30 (0.5-1.4) mg/dL Estim Creat Clear Calc 62.2 Estimated GFR 56 Random Glucose 206 H (60-115) mg/dL Calcium 9.6 (8.4-10.2) mg/dL Total Bilirubin 0.2 (0.0-1.0) mg/dL Direct Bilirubin < 0.2 (0.0-0.5) mg/dL AST 13 (5-37) U/L ALT 15 (0-40) U/L Alkaline Phosphatase 60 (39-117) U/L Troponin I High Sens < 2.7 (<3.5-35.0) ng/L Total Protein 7.9 (6.5-8.0) g/dL Albumin 3.9 (3.5-5.0) g/dL COVID-19 (JOSHUA) Negative (Negative) COVID-19 Clin Com See Note Influenza Type A (SINAN) Negative (Negative) Influenza Type B (SINAN) Negative (Negative) Influenza A & B Note See Note Independent Interpretation I performed an independent interpretation of an: Plain X-Ray (No infiltrates) Radiology Impression Discussion of test interpretation with radiology: I have reviewed the radiologist's reading. (Unremarkable examination) Discharge Plan Discharge Clinical Impression: Acute viral syndrome, Chest pain Patient Disposition: Home, Self-Care Instructions: Viral Syndrome (ED) Additional Instructions: Your workup in the ER today was reassuring. Your chest x-ray was clear, he did not have COVID-19 or influenza Continue using your inhalers and nebulizers as prescribed I do not think you need any further antibiotics or steroids Return for new or worsening symptoms Prescriptions: No Action repaglinide 0.5 mg tablet 0.5 mg PO TID Qty: 90 7RF loratadine 10 mg tablet 10 mg PO DAILY Qty: 90 3RF sennosides [senna] 8.6 mg tablet 17.2 mg PO BEDTIME Qty: 60 6RF famotidine 40 mg tablet 40 mg PO BEDTIME Qty: 90 1RF simethicone 180 mg capsule 180 mg PO QID PRN (Reason: for gas) Qty: 90 6RF Advair HFA 115-21 mcg/actuation HFA aerosol inhaler 2 puff inhalation Q12H Qty: 12 11RF sertraline 100 mg Tablet 200 mg PO DAILY lorazepam 0.5 mg Tablet 0.5 mg PO DAILY metformin 1,000 mg Tablet 1,000 mg PO BID montelukast 10 mg Tablet 10 mg PO DAILY pioglitazone 30 mg tablet 30 mg PO DAILY@1200 Jardiance 25 mg tablet 25 mg PO DAILY insulin glargine 100 unit/mL (3 mL) insulin pen 36 unit subcut BEDTIME albuterol sulfate 2.5 mg /3 mL (0.083 %) solution for nebulization 2.5 mg inhalation QID PRN (Reason: shortness of breath or wheezing) Qty: 75 0RF atorvastatin 20 mg tablet 20 mg PO BEDTIME gabapentin 300 mg capsule 300 mg PO BID eszopiclone 3 mg tablet 3 mg PO BEDTIME PRN (Reason: insomnia) (DME) pen needle, diabetic [UltiCare Pen Needle] 31 gauge x 5/16 needle See Rx Instructions subcut .MEDSUPPLY Qty: 1200 Rx Instructions: As directed (DME) FreeStyle Lite Strips Strip See Rx Instructions Not Applicable BID Qty: 10 Rx Instructions: As directed aspirin 81 mg tablet,delayed release (DR/EC) 81 mg PO DAILY (DME) FreeStyle Lite Strips Strip See Rx Instructions .ROUTE .MEDSUPPLY Qty: 100 11RF Rx Instructions: As directed three times a day (DME) lancets [FreeStyle Lancets] 28 gauge misc See Rx Instructions .ROUTE .MEDSUPPLY Qty: 100 11RF Rx Instructions: Three times a day (DME) nebulizers [facility] [place] See Rx Instructions .ROUTE Rx Instructions: As directed albuterol sulfate [Ventolin HFA] 90 mcg/actuation HFA aerosol inhaler 2 inh inhalation Q4H metoclopramide HCl 10 mg tablet 10 mg PO TID Qty: 90 6RF pantoprazole 40 mg tablet,delayed release (DR/EC) 40 mg PO QAM Qty: 30 6RF prednisone 20 mg tablet See Rx Instructions PO DAILY 10 Days Qty: 15 0RF Rx Instructions: PO daily; Take 2 tabs daily x 5 days, then 1 tablet daily x 5 days sodium chloride 0.9 % solution for nebulization 3 ml inhalation BID Qty: 180 10RF levalbuterol HCl 1.25 mg/3 mL solution for nebulization 1.25 mg inhalation BID 30 Days Qty: 180 0RF amoxicillin-pot clavulanate 875-125 mg tablet 1 tab PO BID 10 Days Qty: 20 0RF Magic Mouthwash Diphen/Lido/Antacid 1:1:1 240 mL suspension 10 ml PO TID Qty: 240 1RF Rx Instructions: Lidocaine Viscous 2 % 80mL; diphenhydramine 12.5 mg/5 mL 80mL; aluminum-mag hydrox-simeth [id number]/5mL 80mL
[2023-03-20 13:02] VITALS: BP 99/74; PULSE 100; RESP 19; TEMP 36.6; O2SAT 96
[2023-03-20] MEDS: Albuterol Sulfate 90 MCG 8 GM INHALER 8 PUFF INHALE (13:14)
[2023-03-20 13:16] VITALS: PULSE 73; RESP 22; O2SAT 97
[2023-03-20 13:42] LABS: Alanine Aminotransferase 15 U/L (0-40); Albumin Level 3.9 g/dL (3.5-5.0); Alkaline Phosphatase 60 U/L (39-117); Aspartate Amino Transferase 13 U/L (5-37); Bilirubin Direct < 0.2 mg/dL (0.0-0.5); Bilirubin Total 0.2 mg/dL (0.0-1.0); Total Protein 7.9 g/dL (6.5-8.0)
[2023-03-20 16:24] LABS: D Dimer High Sensitivity < 150 NG/ML
[2023-03-20] MEDS: Albuterol/Iprat 2.5/0.5MG 3 ML AMPUL.NEB INHALE (20:49)
[2023-03-20 20:50] VITALS: BP 104/69; PULSE 87; RESP 18; TEMP 36.4; O2SAT 97
[2023-03-20 20:53] VITALS: PULSE 82; RESP 18; O2SAT 95
== END 2023-03-20 21:15 | disposition home or self-care (01) ==
PROVIDERS: Physician Assistant; Emergency Provider Internal Medicine; PCP Internal Medicine
DX: B34.9 Viral infection, unspecified (principal); R07.9 Chest pain, unspecified; Z11.52 Encounter for screening for COVID-19; R06.02 Shortness of breath; E11.9 Type 2 diabetes mellitus without complications; I10 Essential (primary) hypertension; E78.5 Hyperlipidemia, unspecified; Z79.84 Long term (current) use of oral hypoglycemic drugs; Z79.02 Long term (current) use of antithrombotics/antiplatelets; Z79.4 Long term (current) use of insulin; Z79.899 Other long term (current) drug therapy
CPT/HCPCS: 36415; 71046; 80048; 80076; 84484; 85025; 85379; 87502; 87635; 93005; 94640; 99284; 99285

== ENCOUNTER → 2023-03-20 11:06 | Outpatient (BNV) | payer OTHER, SELFPAY | PROVIDERS: Emergency Provider Internal Medicine; PCP Internal Medicine; Visit Provider Internal Medicine Cardiovascular Disease | DX: R07.9 Chest pain, unspecified (principal); R06.02 Shortness of breath | CPT/HCPCS: 93010 ==

== ENCOUNTER 2023-03-30 12:10 | Outpatient (REF) | payer OTHER, SELFPAY ==
[2023-03-30 13:15] LABS: MANUAL DIFF FLAG NO
[2023-03-30 13:35] LABS: Basophils Absolute Auto 0.1 X10*3/uL (0.0-0.2); Basophils Percent Auto 0.7 % (0-2); Eosinophils Absolute Auto 1.1 X10*3/uL (0.0-0.4); Eosinophils Percent Auto 9.1 % (0-4); Hematocrit 45.5 % (42.0-52.0); Hemoglobin 14.4 g/dl (14.0-18.0); Imm Gran Abs Auto 0.07 X10*3/uL (0.00-0.03); Imm Gran Pct Auto 0.6 % (0.0-0.4); Lymphocytes Percent Auto 24.3 % (20-40); Mean Corpuscular HGB Conc 31.6 g/dl (31.0-36.0); Mean Corpuscular Hemoglobin 28.3 pg (27.0-33.0); Mean Corpuscular Volume 89.4 fL (80.0-98.0); Mean Platelet Volume 9.3 fL (9.4-12.4); Monocytes Absolute Auto 1.2 X10*3/uL (0.1-1.2); Monocytes Percent Auto 9.7 % (2-11); Neutrophils Absolute Auto 6.7 x10*3/uL (2.0-8.3); Neutrophils Percent Auto 55.6 % (45-73); Platelet Count 229 X10*3/uL (160-400); Red Blood Count 5.09 X10*6/uL (4.60-5.80); Red Cell Distribution Width 15.6 % (11.0-16.0); White Blood Count 12.1 X10*3/uL (4.8-10.8)
[2023-03-30 15:20] LABS: Folate 6.9 ng/mL (> or = 4.0); Vitamin B12 310 pg/mL (200-900)
== END 2023-03-30 12:11 | disposition home or self-care (01) ==
LOC: HO.HHCL 12:10
PROVIDERS: Visit Provider Family Medicine
DX: R05.2 Subacute cough (principal); R53.83 Other fatigue
CPT/HCPCS: 36415; 82607; 82746; 85025

== ENCOUNTER 2023-04-03 13:03 | Outpatient (REF) | payer OTHER, SELFPAY ==
--- NOTE | ~2023-04-03 | US_ITS ---
EXAMINATION: US SCROTUM CLINICAL INFORMATION: Right-sided testicular pain. COMPARISON: Scrotal ultrasound 08/27/2017 and 01/27/2009. TECHNIQUE: A sonogram of the scrotum was performed assessing mills-scale appearance and color Doppler flow. Spectral Doppler analysis of the arterial and venous flow were performed in the testes bilaterally. FINDINGS: RIGHT: Right testicle measures 3.1 x 1.8 x 2.5 cm, volume 7.1 mL. No focal testicular parenchymal lesions are visualized. Spectral Doppler analysis of the arterial and venous flow is normal in the right testis. Right epididymal head is normal in size. No right hydrocele or varicocele is seen. Right epididymal Doppler flow is normal. LEFT: Left testicle measures 3.2 x 1.7 x 2.0 cm, volume 5.6 mL. No focal testicular parenchymal lesions are visualized. Spectral Doppler analysis of the arterial and venous flow is normal in the left testis. Left epididymal head is normal in size. No left hydrocele or varicocele is seen. Left epididymal Doppler flow is normal. US/US scrotum IMPRESSION: Unremarkable scrotal ultrasound.
== END 2023-04-03 13:04 | disposition home or self-care (01) ==
LOC: HO.US 13:03
PROVIDERS: PCP Internal Medicine; Visit Provider Internal Medicine
DX: N50.811 Right testicular pain (principal)
CPT/HCPCS: 76870

== ENCOUNTER 2023-05-23 14:06 | Outpatient (REF) | payer OTHER, SELFPAY ==
--- NOTE | ~2023-05-23 | XR_ITS ---
EXAMINATION: XR CHEST CLINICAL INFORMATION: Shortness of breath COMPARISON: Prior chest radiograph 03/20/2023 TECHNIQUE: 2 views of the chest were obtained. FINDINGS: Lungs clear. Heart and pulmonary vessels are normal. Postsurgical changes in the right and left shoulders noted. No pleural effusion. XR/XR chest 2V IMPRESSION: No active disease. No evidence for congestive change.
--- NOTE | ~2023-05-23 | FL_ITS ---
EXAMINATION: Modified Barium Swallow CLINICAL INFORMATION: Dysphagia COMPARISON: None TECHNIQUE: Modified barium swallow was performed under lateral fluoroscopy with patient in standing position. Barium mixed with solids and liquids of different consistencies was administered by the speech pathologist. Exam was recorded in the fluoroscopy suite. FINDINGS: There was laryngeal penetration with thin barium. No aspiration was seen during this examination. FLUOROSCOPY TIME: 1 minute 1 second Number of Spot Images: 1 DOSE AREA PRODUCT: 700.6 uGy-m2 (microgray-meter squared) FL/FL barium swallow modified IMPRESSION: There was laryngeal penetration with thin barium. No subglottic aspiration was seen during this examination. Refer to the speech therapy report for further clarification This procedure was performed by Yves Barahona PA-C, and supervised by Dr. Durán
--- NOTE | 2023-05-24 10:29 | MHC.SL.IMP ---
Date of Plan of Treatment: 05/23/23 Onset of Symptoms/Illness: 11/15/21 Date Treatment Started: 05/23/23 Admitting Diagnosis: Dysphagia Primary Speech & Language Diagnosis: R13.12 Oropharyngeal Phase Dysphagia Reason for Today's Visit: 67250 Modified Barium Swallow Study Pre-evaluation Dietary Consistencies: Regular Pre-evaluation Liquid Consistency: Thin Pre-evaluation Medication Administration: Whole with Liquid Medical History: Modified Barium Swallow Study Fluoroscopic Evaluation of Swallowing Function CPT Code 11785 Evaluation Year: 2023 Reason for Study: Difficulty swallowing Referring Physician: Delicia TOBIAS Evaluating Clinician: Anai Pedraza MA, CCC-[employer]IST Study Number: 1 Patient Name: Sancho Zuniga Status: Outpatient, Ambulatory Age: 62 Gender: Male Medical History Medical History (Updated 03/12/23 @ 21:26 by Pa Watson MD) New abnormality on chest x-ray Bronchitis Depression Diabetes Chronic GERD Anxiety Hyperlipidemia HTN (hypertension) Asthma Surgical History Hx of toe surgery Hx of repair of rotator cuff Hx of hernia repair Hx of colonoscopy Hx of esophagogastroduodenoscopy Current (pre-evaluation) Intake/Diet: Route: PO Diet Grade: Regular Liquid Consistencies: Thin Pre-Study Functional Oral Intake Scale (FOIS): 7- Total oral intake with no restrictions Pain: None reported at time of study SUBJECTIVE: Patient is a 62 year old male with history of chronic GERD and asthma referred for a modified barium swallow study by Delicia TOBIAS from the [facility] office. Patient has been reporting having difficulty swallowing since October 2021. He described experiencing ?irritation? and the sensation of ?little lumps? in his upper throat. He reportedly had his upper GES dilated and says his swallowing feels worse after the procedure. Today patient endorses experiencing globus sensation and coughing during meals. He denies odynophagia. Oral Motor Exam Facial Symmetry: Symmetrical Mouth Occlusion: Normal Oral-Facial Teeth Characteristics: Partially Missing Oral-Facial Teeth Miscellaneous Observation: Patient missing top teeth and did not have his dentures in. Oral-Facial Smile (Lips) Description: Normal Oral-Facial Puff Cheeks Description: Normal Tongue Size: Normal Tongue Excursion Description: Normal Tongue Range of Movement Description: Normal Tongue Speed of Movement Description: Normal Tongue Strength of Movement (against opposing pressure): Normal Tongue Movement Characteristics: Normal/Absent Food and Liquid Trials: Oral Impairment: Lip Closure: 0=No labial escape Oral Impairment: Tongue Control During Bolus Hold: Did not test Oral Impairment: Bolus Preparation/Mastication: 1=Slow prolonged chewing/mashing with complete re-collection Oral Impairment: Bolus Transport/Lingual Motion: 0=Brisk tongue motion Oral Impairment: Oral Residue: 2=Residue collection on oral structures Oral Impairment:Initiation of Pharyngeal Swallow: 0=Bolus head at posterior angle of ramus (first hyoid excursion) Pharyngeal Impairment: Soft Palate Elevation: 0=No bolus between soft palate (SP)/pharyngeal wall (PW) Pharyngeal Impairment: Laryngeal Elevation: 0=Complete superior movement of thyroid cartilage (see description) Pharyngeal Impairment: Anterior Hyoid Excursion: 1=Partial anterior movement Pharyngeal Impairment: Epiglottic Movement: 1=Partial inversion Pharyngeal Impairment: Laryngeal Vestibular Closure:: 1=Incomplete: narrow column air/contrast in laryngeal vestibule Pharyngeal Impairment: Pharyngeal Stripping Wave: 0=Present: complete Pharyngeal Impairment: Pharyngeal Contraction: Did not test Pharyngeal Impairment: Pharyngoesophageal Segment Openin=Partial distention/partial duration: partial obstruction of flow Pharyngeal Impairment: Tongue Base (TB) Retraction: 2=Narrow column of contrast/air between TB and posterior PW Pharyngeal Impairment: Pharyngeal Residue: 2=Collection of residue within or on pharyngeal structures Pharyngeal Impairment: Esophageal Clearance Upright Position: Did not test Impressions and Recommendations OBJECTIVE: Time-out: performed at 14:45 Evaluation Start: 14:30; Stop: 14:35 Patient Positioning: Standing Viewing Planes: LATERAL ONLY Contrast: MBSImP? Standardized Protocol using commercially prepared, standardized Barium viscosities, including: Varibar? THIN LIQUID (40% w/v, <15 cps) , 1/2 Shortbread Cookie (1 x1 x.25 ) MBSImP ID: [id number] MBSImP Results: Lip closure for intraoral bolus containment resulted in no labial escape. Tongue control during bolus hold could not be assessed due to logistical reasons not related to physiologic impairment. Bolus preparation and mastication resulted in slow, prolonged chewing/mashing but with complete re-collection. Bolus transport/lingual motion was with brisk tongue motion. Oral residue was a collection on oral structures. Initiation of the pharyngeal swallow occurred as the bolus head reached the posterior angle of the mandibular ramus. Soft palate elevation resulted in no bolus between the soft palate and the pharyngeal wall. Laryngeal elevation demonstrated complete superior movement of the thyroid cartilage with complete approximation of the arytenoids to the epiglottic petiole. Anterior hyoid excursion demonstrated partial anterior movement. Epiglottic movement resulted in partial inversion. Laryngeal vestibular closure was incomplete, with a narrow column of air/contrast noted within the laryngeal vestibule at the height of the swallow. Pharyngeal stripping wave was present and complete. Pharyngeal contraction could not be determined due to logistical reasons not related to physiologic impairment. Pharyngoesophageal segment opening demonstrated partial distension/partial duration, with partial obstruction of bolus flow. Tongue base retraction allowed a narrow column of contrast or air between the retracted tongue base and the posterior pharyngeal wall. Pharyngeal residue was a collection of residue within or on pharyngeal structures. Esophageal clearance in the upright position could not be assessed due to logistical reasons not related to physiologic impairment. Oral Impairment Score: 3 (absence of score, component 2) Pharyngeal Impairment Score: 8 (absence of score, component 13) Esophageal Impairment Score: --- (absence of score, component 17) Laryngeal Penetration and Aspiration: Penetration was observed in today's study. Thin Contrast entered the airway, remained above the vocal folds, and was ejected from the airway. ASSESSMENT: This exam was performed by the speech pathologist and the radiologist. Pt was standing for lateral view and trialed thin, pureed, ground, and regular solid consistencies. Noted complete lip closure with no anterior escape of bolus. Mastication was mildly slowed and prolonged. Lingual AP transport was brisk and timely. Pharyngeal swallow trigger was also timely, initiated at the posterior angle of the ramus. Post-swallow, there was mild residue coating the tongue and palate, which mostly cleared with multiple dry swallows. Partial epiglottic inversion and incomplete laryngeal vestibular closure resulted in flash penetration with thin liquid. A very trace amount of contrast entered the airway above the vocal folds momentarily coating the posterior epiglottis, then ejected spontaneously. No evidence of aspiration during this exam. There was mild pharyngeal retention with puree and moderate retention with harder solids on the tongue base, in the valleculae, and in the pyriform sinuses. Most residuals were cleared with multiple dry swallows. The following compensatory strategies have not been used until today's study, but when employed, improved swallowing function: Additional Swallow(s) per Bolus decreased Oral Residue, Pharyngeal Residue Liquid Intake Recommendation: Thin Liquid Intake Strategies: Small Sips, No Straws Dietary Recommendations: Regular Medication Administration: Whole with Liquid Please contact the pharmacy regarding appropriate crushable or liquid drug formulations that are available whenever modified delivery is recommended. Compensatory Strategies Recommended: Sitting Upright (90 deg), Double Swallow, Small Bites and Sips, Alternate Liquids/Solids, Rate of Ingestion Change, Avoid Specific Foods Supervision during eating and or drinking: None Needed Recommendation for Speech Therapy: NA:Typical Evaluation Text Comment: Intake Recommendations: Route: PO Diet Grade: Regular Liquid Consistencies: Thin Post-Study Functional Oral Intake Scale (FOIS): 6- Total oral intake with no special preparation, but must avoid specific foods or liquid items This exam revealed mild oropharyngeal dysphagia. There was flash penetration with trials of thin liquid. No evidence of aspiration with liquids and solids. There was mild to moderate residue in the oral and pharyngeal cavities, which mostly cleared with multiple dry swallows. The following strategies are recommended to maximize swallow safety: -Wear dentures while eating -Avoid foods which are tough, dry, or sticky -Take one bite at a time and chew well -Follow each bite with 2-3 dry swallows -Take small, individual sips of liquid -Avoid the use of straws -Maintain 90 degree position during PO intake and for at least 30 minutes afterwards Therapy Recommendations: Based on results of this exam, continued speech therapy is not warranted at this time. Recommend patient avoid foods which are hard or sticky and to employ behavioral strategies to promote oral and pharyngeal clearance. Recommend patient follow up with Gastroenterology for management of chronic GERD. Clinician - Supplemental, Miscellaneous Communication: It is important to note MBSS objective studies are snapshots in time and Patient function might vary with factors such as time of day or concomitant medical conditions. For this reason, the final treatment plan for this patient should rest with their medical care team. Additional recommendations should be considered with the totality of the Patient in mind. Thank for the opportunity to participate in the care of this patient. If you have any questions about the content of this report, please contact the [facility] at [facility]. Education: Education regarding findings from today's study and plans for therapy were provided to Patient only through Verbal Instruction. Understanding was expressed by the Patient only. Running Instructor Clinician/Clinical Fellow: No Supervisory Statement: N/A Speech Language Pathologist: Anai Pedraza M.A., [facility]-[employer]IST
== END 2023-05-23 14:07 | disposition home or self-care (01) ==
LOC: HO.XRAY 14:06
PROVIDERS: Visit Provider Nurse Practitioner
DX: R13.10 Dysphagia, unspecified (principal); R05.9 Cough, unspecified
CPT/HCPCS: 71046; 74230; 92611

== ENCOUNTER → 2023-05-23 14:30 | Outpatient (BNV) | payer OTHER, SELFPAY | PROVIDERS: Visit Provider Physician Assistant Surgical | DX: R13.10 Dysphagia, unspecified (principal) | CPT/HCPCS: 74230 ==

== ENCOUNTER 2023-06-01 11:47 | Outpatient (AMB) | payer OTHER, SELFPAY ==
--- NOTE | 2023-06-01 11:52 | A.OFFVIS_ITS ---
Intake Vital Signs 06/01/23 11:58 Height 5 ft 9 in Weight 209 lb 6.519 oz BMI 30.9 BP 121/74 Blood Pressure Location Lt brachial Position Sitting Pulse 100 Intake Visit Reasons: Follow up barium swallow Intake Note: Patient in office today in follow up of barium swallow. CC: He states he still has some trouble swallowing. Patient states that he is not longer taking the last medication she gave me because he states it was not helping. Denies other GI symptoms. Blood Bank Order Control Clerk Required: Yes Allergies No Known Allergies Allergy (Verified 06/01/23 12:00) HPI Follow up barium swallow HPI Details Assessment & Plan (1) Dysphagia: Comment: Lack of neuromuscular coordination referred to speech therapy, but also has benefited from dilation as of his 2021 EGD Code(s): R13.10 - Dysphagia, unspecified Plan: [place] #[id number], [place] He never received the magic mouthwash. While his swallowing has improved a bit, he still has food sticking around the level of the larynx that bothers him - never with liquids. He has some problems with swallowing coordination in the past and was referred to speech therapy, and I think we will repeat the mod barium swallow with speech therapy to see if anything else can be done. He continues on his pantoprazole in the morning and famotidine at night, reglan 10 mg 3 times a day, his senna, simethicone. ROV after mod barium swallow. (2) GERD (gastroesophageal reflux diseas e): Code(s): K21.9 - Gastro-esophageal reflux disease without esophagitis (3) Gastroparesis: Code(s): K31.84 - Gastroparesis (4) Tubular adenoma of colon: Comment: 2019 scope TA removed repeat 5 years Code(s): D12.6 - Benign neoplasm of colon, unspecified (5) Abdominal bloating: Code(s): R14.0 - Abdominal distension (gaseous) (6) Irritable bowel syndrome with consti pation: Code(s): K58.1 - Irritable bowel syndrome with constipation Orders: Orders FL barium swallow modified Today R13.10 - Dysphagia , unspecified MODIFIED BARIUM SWALLOW 05/29/23 TECHNIQUE: Modified barium swallow was performed under lateral fluoroscopy with patient in standing position. Barium mixed with solids and liquids of different consistencies was administered by the speech pathologist. Exam was recorded in the fluoroscopy suite. FINDINGS: There was laryngeal penetration with thin barium. No aspiration was seen during this examination. FLUOROSCOPY TIME: 1 minute 1 second Number of Spot Images: 1 DOSE AREA PRODUCT: 700.6 uGy-m2 (microgray-meter squared) FL/FL barium swallow modified IMPRESSION: There was laryngeal penetration with thin barium. No subglottic aspiration was seen during this examination. Refer to the speech therapy report for further clarification Liquid Intake Recommendation: Thin Liquid Intake Strategies: Small Sips, No Straws Dietary Recommendations: Regular Medication Administration: Whole with Liquid Please contact the pharmacy regarding appropriate crushable or liquid drug formulations that are available whenever modified delivery is recommended. Compensatory Strategies Recommended: Sitting Upright (90 deg), Double Swallow, Small Bites and Sips, Alternate Liquids/Solids, Rate of Ingestion Change, Avoid Specific Foods Supervision during eating and or drinking: None Needed Recommendation for Speech Therapy: NA:Typical EvaluationText Comment: Intake Recommendations: Route: PO Diet Grade: Regular Liquid Consistencies: Thin Post-Study Functional Oral Intake Scale (FOIS): 6- Total oral intake with no special preparation, but must avoid specific foods or liquid items This exam revealed mild oropharyngeal dysphagia. There was flash penetration with trials of thin liquid. No evidence of aspiration with liquids and solids. There was mild to moderate residue in the oral and pharyngeal cavities, which mostly cleared with multiple dry swallows. The following strategies are recommended to maximize swallow safety: -Wear dentures while eating -Avoid foods which are tough, dry, or st icky -Take one bite at a time and chew well -Follow each bite with 2-3 dry swallows -Take small, individual sips of liquid -Avoid the use of straws -Maintain 90 degree position during PO i ntake and for at least 30 minutes afterwards Therapy Recommendations: Based on results of this exam, continued speech therapy is not warranted at this time. Recommend patient avoid foods which are hard or sticky and to employ behavioral strategies to promote oral and pharyngeal clearance. Recommend patient follow up with Gastroenterology for management of chronic GERD. TODAY'S VISIT [place] #Madalyn Godinez It does appear that his swallowing has worsened since last evaluation around 2019 but it certainly has not improved. I explained him this has to do with a coordination problem with the tongue and the swallowing mechanism and not something that is easily addressed from a GI point of view. I am uncertain why this is happening with it is possible that he had a small stroke that was missed but we may never know the reason. I again reviewed all of the recommended interventions via speech therapy since he did not seem to remember them. He is aware that he has to be extremely careful since choking could be an irreversible problem. He is encouraged to eat very slowly, to be very careful about conversing well eating any says he always sits up and does not lay back while eating. He is also encouraged to do the double swallow before putting anymore food in his mouth. He continues on his pantoprazole in the morning and famotidine at night, reglan 10 mg 3 times a day, his senna, simethicone. These are all controlling his GI symptoms well. Return office visit in 6 months [facility] Medical History New abnormality on chest x-ray Bronchitis Depression Diabetes Chronic GERD Anxiety Hyperlipidemia HTN (hypertension) Asthma Surgical History Hx of toe surgery Hx of repair of rotator cuff Hx of hernia repair Hx of colonoscopy Hx of esophagogastroduodenoscopy Family History Father No problems noted. Mother Hx of breast cancer Sister Diabetes Maternal Aunt Heart problem Social History Household Members: Spouse Housing: Apartment Alcohol intake: unknown Patient Tobacco Use Status: Former Tobacco user Years Smoked: 20 yrs ( quit 8 years ago) Second Hand Smoke Exposure: Yes service: No Current occupational status: retired Review of Systems Const Denies fatigue, Denies fever(s), Denies night sweats, Denies poor appetite and Denies weight loss Eyes Details: glasses Reports requires corrective lenses ENT Reports Normal hearing present, Denies dental pain, Reports dysphagia, Denies hearing loss, Denies mouth pain, Denies odynophagia, Denies throat swelling, Denies tongue swelling and Reports other (Dentition adequate) Card Reports no additional complaints and Reports dyspnea on exertion Resp Reports dyspnea on exertion GI Details: Denies abdominal pain, Denies melena, Denies bloating, Denies hematochezia, Reports constipation, Denies GI cramping, Reports dysphagia, Denies excessive flatus, Denies early satiety, Reports heartburn, Denies diarrhea, Denies nausea, Denies odynophagia, Denies vomiting and Denies hematemesis Skin/Breast Denies pruritus, Denies lesions, Denies rash and Denies jaundice Neuro Reports Normal hearing present and Denies Abnormal speech present Endo Denies fatigue Aller/Immun Denies throat swelling and Denies tongue swelling Physical Exam Vital Signs: Last Vital Signs Pulse 100 06/01/23 11:58 BP 121/74 06/01/23 11:58 BMI result Body Mass Index 30.9 Const General: cooperative, no acute distress, well developed and well groomed Nutritional Appearance: well nourished and obese centrally obese Orientation/consciousness: oriented to person, oriented to place and oriented to time Limitations: language barrier HEENT Head: Yes normocephalic and Yes atraumatic Eyes General: appearance normal, both eyes and all related structures Pupils: Equal, round and reactive pupils present Neck Neck: Yes normal visual inspection and Yes no lymphadenopathy Thyroid: Thyroid normal Resp Effort & Inspection: normal respiratory effort and able to speak in complete sen tences Auscultation: clear to auscultation bilaterally Cardio Rate: regular rate Rhythm: regular rhythm Heart sounds: Normal, physiologic split S2 sound present Peripheral pulses: radial pulses present and posterior tibial pulses present GI Inspection: No distended, No Abdominal panniculus present and Yes obesity Palpation (GI): Soft to palpation, nontender, no guarding, not rigid and No hepatosplenomegaly present Percussion: Yes normal to percussion Auscultation: normal bowel sounds Rectal Exam - Male: Yes deferred Skin General skin exam: no rashes or lesions noted, turgor normal, skin not dry, no jaundice, No spider nevi and no striae Rashes: no rashes Nails: normal Neuro General: oriented to person, oriented to place and oriented to time Cranial nerves: Yes Equal, round and reactive pupils present and Yes Normal hearing present Speech: No Abnormal speech present Extrem General: Yes normal to inspection, No clubbing, No cyanosis and No edema Psych Appearance: grossly normal and well kempt Mental Status: mental status grossly normal Speech and movement: Normal speech and movement present Affect: normal affect Attitude: cooperative Thought process: Normal thought process present and not confabulating Thought content: Normal thought content present Insight: Limited insight present (Psych) Judgement: Limited judgement present (Psych) Results Reviewed Results Reviewed: MODIFIED BARIUM SWALLOW 05/29/23 TECHNIQUE: Modified barium swallow was performed under lateral fluoroscopy with patient in standing position. Barium mixed with solids and liquids of different consistencies was administered by the speech pathologist. Exam was recorded in the fluoroscopy suite. FINDINGS: There was laryngeal penetration with thin barium. No aspiration was seen during this examination. FLUOROSCOPY TIME: 1 minute 1 second Number of Spot Images: 1 DOSE AREA PRODUCT: 700.6 uGy-m2 (microgray-meter squared) FL/FL barium swallow modified IMPRESSION: There was laryngeal penetration with thin barium. No subglottic aspiration was seen during this examination. Refer to the speech therapy report for further clarification Liquid Intake Recommendation: Thin Liquid Intake Strategies: Small Sips, No Straws Dietary Recommendations: Regular Medication Administration: Whole with Liquid Please contact the pharmacy regarding appropriate crushable or liquid drug formulations that are available whenever modified delivery is recommended. Compensatory Strategies Recommended: Sitting Upright (90 deg), Double Swallow, Small Bites and Sips, Alternate Liquids/Solids, Rate of Ingestion Change, Avoid Specific Foods Supervision during eating and or drinking: None Needed Recommendation for Speech Therapy: NA:Typical EvaluationText Comment: Intake Recommendations: Route: PO Diet Grade: Regular Liquid Consistencies: Thin Post-Study Functional Oral Intake Scale (FOIS): 6- Total oral intake with no special preparation, but must avoid specific foods or liquid items This exam revealed mild oropharyngeal dysphagia. There was flash penetration with trials of thin liquid. No evidence of aspiration with liquids and solids. There was mild to moderate residue in the oral and pharyngeal cavities, which mostly cleared with multiple dry swallows. The following strategies are recommended to maximize swallow safety: -Wear dentures while eating -Avoid foods which are tough, dry, or sticky -Take one bite at a time and chew well -Follow each bite with 2-3 dry swallows -Take small, individual sips of liquid -Avoid the use of straws -Maintain 90 degree position during PO intake and for at least 30 minutes afterwards Therapy Recommendations: Based on results of this exam, continued speech therapy is not warranted at this time. Recommend patient avoid foods which are hard or sticky and to employ behavioral strategies to promote oral and pharyngeal clearance. Recommend patient follow up with Gastroenterology for management of chronic GERD. Assessment & Plan Assessment & Plan (1) Dysphagia: Comment: Lack of neuromuscular coordination referred to speech therapy, but also has benefited from dilation as of his 2021 EGD Code(s): R13.10 - Dysphagia, unspecified (2) GERD (gastroesophageal reflux disease): Code(s): K21.9 - Gastro-esophageal reflux disease without esophagitis Qualifiers: Esophagitis presence: without esophagitis Qualified Code(s): K21.9 - Gastro-esophageal reflux disease without esophagitis (3) Gastroparesis: Code(s): K31.84 - Gastroparesis (4) Irritable bowel syndrome with constipation: Code(s): K58.1 - Irritable bowel syndrome with constipation (5) Abdominal bloating: Code(s): R14.0 - Abdominal distension (gaseous) Plan [place] #Madalyn Live It does appear that his swallowing has worsened since last evaluation around 2019 but it certainly has not improved. I explained him this has to do with a coordination problem with the tongue and the swallowing mechanism and not something that is easily addressed from a GI point of view. I am uncertain why this is happening with it is possible that he had a small stroke that was missed but we may never know the reason. I again reviewed all of the recommended interventions via speech therapy since he did not seem to remember them. He is aware that he has to be extremely careful since choking could be an irreversible problem. He is encouraged to eat very slowly, to be very careful about conversing well eating any says he always sits up and does not lay back while eating. He is also encouraged to do the double swallow before putting anymore food in his mouth. He continues on his pantoprazole in the morning and famotidine at night, reglan 10 mg 3 times a day, his senna, simethicone. These are all controlling his GI symptoms well. Return office visit in 6 months Coding Level of Care Code Est Pt Level 4 (89627) Diagnoses Dysphagia R13.10 Gastroesophageal reflux disease without esophagitis K21.9 Esophagitis presence: without esophagitis Gastroparesis K31.84 Irritable bowel syndrome with constipation K58.1 Abdominal bloating R14.0 Time Spent (min) 33
[2023-06-01 11:58] VITALS: BP 121/74; PULSE 100; BMI 30.9
== END 2023-06-01 12:44 | disposition home or self-care (01) ==
PROVIDERS: PCP Internal Medicine; Visit Provider Nurse Practitioner
DX: R13.10 Dysphagia, unspecified (principal); K21.9 Gastro-esophageal reflux disease without esophagitis; K31.84 Gastroparesis; K58.1 Irritable bowel syndrome with constipation; R14.0 Abdominal distension (gaseous)
CPT/HCPCS: 99214

== ENCOUNTER → 2023-06-01 11:47 | Outpatient (BNVA) | payer OTHER, SELFPAY | PROVIDERS: PCP Internal Medicine; Visit Provider Nurse Practitioner | DX: K21.9 Gastro-esophageal reflux disease without esophagitis (principal); K31.84 Gastroparesis; K58.1 Irritable bowel syndrome with constipation; R13.10 Dysphagia, unspecified; R14.0 Abdominal distension (gaseous) | CPT/HCPCS: 99212 ==

== ENCOUNTER 2023-08-02 12:14 | Outpatient (AMB) | payer OTHER, SELFPAY ==
--- NOTE | 2023-08-02 12:49 | MHC.OFFVIS ---
Vital Signs 08/02/23 12:51 Height 5 ft 9 in Weight 209 lb BMI 30.9 Intake Visit Reasons: ov- B/L shoulder pain Intake Note: Sancho is a right hand dominant male who presents today for a follow up of his bilateral shoulder pain, he received an injection on 11/11/2020 He states that he had adequate relief from the injections given , his pain has returned within the last few weeks . He states that he would like to have additional injections today Allergies No Known Allergies Allergy (Verified 06/01/23 12:00) HPI HPI ov- B/L shoulder pain: Details: Sancho is a right hand dominant male who presents today for a follow up of his bilateral shoulder pain, he received an injection on 11/11/2020 He states that he had adequate relief from the injections given , his pain has returned within the last few weeks . He states that he would like to have additional injections today He describes bilateral shoulder pain with overhead activity and at night. [facility] Medical History New abnormality on chest x-ray Bronchitis Depression Diabetes Chronic GERD Anxiety Hyperlipidemia HTN (hypertension) Asthma Surgical History Hx of toe surgery Hx of repair of rotator cuff Hx of hernia repair Hx of colonoscopy Hx of esophagogastroduodenoscopy Family History Father No problems noted. Mother Hx of breast cancer Sister Diabetes Maternal Aunt Heart problem Social History Household Members: Spouse Housing: Apartment Alcohol intake: unknown Patient Tobacco Use Status: Former Tobacco user Years Smoked: 20 yrs ( quit 8 years ago) Second Hand Smoke Exposure: Yes service: No Current occupational status: retired Physical Exam Vital Signs: BMI result Body Mass Index 30.9 Extrem Other: 90/130/30/l5 bilaterally with + moyer and neer and 4+/5 empty can on the right and 5/5 on the left. Office Procedures Joint Injection/Drain Joint Injection/Drain Details: Injected 1 mL of Decadron and 3 mL 1% lidocaine and 3 mL of 0.25% Marcaine. Site was prepped using aseptic technique. Patient tolerated the procedure well. Primary Site: right shoulder Secondary Site: left shoulder Approach Used: posterolateral Coding 42116 - Large joint 36381 - Glenohumeral/Tronchanteric Bursa/Intraarticular Procedure code (CPT) selection complete Assessment & Plan Assessment & Plan (1) Bilateral shoulder bursitis: Code(s): M75.51 - Bursitis of right shoulder; M75.52 - Bursitis of left shoulder Category: Medical Plan: Injected both shoulders (2) Status post rotator cuff surgery: Code(s): Z98.890 - Other specified postprocedural states Category: Surgical Plan: 8-10 years prior. No evidence of reinjury Coding Level of Care Code Est Pt Level 3 (76368) Diagnoses Bilateral shoulder bursitis M75.51; M75.52 Status post rotator cuff surgery Z98.890 CPT Codes Coding - Large joint: 57574 - Large joint ([id number]) Coding - Joint 7: 93255 - Glenohumeral/Tronchanteric Bursa/Intraarticular ([id number])
[2023-08-02 12:51] VITALS: BMI 30.9
== END 2023-08-02 13:18 | disposition home or self-care (01) ==
PROVIDERS: PCP Internal Medicine; Visit Provider Orthopaedic Surgery
DX: M75.51 Bursitis of right shoulder (principal); M75.52 Bursitis of left shoulder
CPT/HCPCS: 20610; 99213

== ENCOUNTER → 2023-08-02 12:14 | Outpatient (BNVA) | payer OTHER, SELFPAY | PROVIDERS: PCP Internal Medicine; Visit Provider Orthopaedic Surgery | DX: M75.51 Bursitis of right shoulder (principal); M75.52 Bursitis of left shoulder; Z98.890 Other specified postprocedural states | CPT/HCPCS: 20610; 99212; J0665; J1100 ==

== ENCOUNTER 2023-08-27 09:12 | Outpatient (REF) | payer OTHER, SELFPAY ==
[2023-08-27 11:46] LABS: MANUAL DIFF FLAG NO
[2023-08-27 12:01] LABS: Basophils Absolute Auto 0.1 X10*3/uL (0.0-0.2); Eosinophils Absolute Auto 1.3 X10*3/uL (0.0-0.4); Eosinophils Percent Auto 12.1 % (0-4); Hematocrit 45.4 % (42.0-52.0); Hemoglobin 14.4 g/dl (14.0-18.0); Imm Gran Abs Auto 0.03 X10*3/uL (0.00-0.03); Imm Gran Pct Auto 0.3 % (0.0-0.4); Lymphocytes Absolute Auto 3.7 X10*3/uL (1.2-4.9); Lymphocytes Percent Auto 34.9 % (20-40); Mean Corpuscular HGB Conc 31.7 g/dl (31.0-36.0); Mean Corpuscular Hemoglobin 28.2 pg (27.0-33.0); Mean Corpuscular Volume 88.8 fL (80.0-98.0); Mean Platelet Volume 9.8 fL (9.4-12.4); Monocytes Absolute Auto 1.2 X10*3/uL (0.1-1.2); Neutrophils Absolute Auto 4.3 x10*3/uL (2.0-8.3); Neutrophils Percent Auto 40.7 % (45-73); Platelet Count 246 X10*3/uL (160-400); Red Blood Count 5.11 X10*6/uL (4.60-5.80); Red Cell Distribution Width 15.4 % (11.0-16.0); White Blood Count 10.5 X10*3/uL (4.8-10.8)
[2023-08-27 12:36] LABS: Alanine Aminotransferase 23 U/L (0-40); Alkaline Phosphatase 47 U/L (39-117); Anion Gap 14 (12-20); Aspartate Amino Transferase 21 U/L (5-37); Bilirubin Total 0.2 mg/dL (0.0-1.0); Blood Urea Nitrogen 14 mg/dL (9-16); Calcium 9.1 mg/dL (8.4-10.2); Carbon Dioxide 22 mmol/L (22-29); Chloride 108 mmol/L (96-108); Cholesterol 111 mg/dL (<200); Estimated Glomerular Filt Rate > 60; Glucose Random 124 mg/dL (60-115); HDL Cholesterol 38 mg/dL (>40); LDL Cholesterol Calculated 51 mg/dL (<100); Potassium 3.9 mmol/L (3.3-5.1); Sodium 140 mmol/L (135-145); Total Protein 7.6 g/dL (6.5-8.0); Triglycerides 112 mg/dL (<150)
[2023-08-27 12:41] LABS: TSH reflex Free T4 3.44 uIU/mL (0.32-4.0)
== END 2023-08-27 09:13 | disposition home or self-care (01) ==
LOC: HO.HHCL 09:12
PROVIDERS: Visit Provider Internal Medicine
DX: E11.9 Type 2 diabetes mellitus without complications (principal); Z79.4 Long term (current) use of insulin
CPT/HCPCS: 36415; 80053; 80061; 84443; 85025

== ENCOUNTER 2023-09-10 13:10 | Outpatient (AMB) | payer OTHER, SELFPAY ==
[2023-09-10 13:20] VITALS: BP 110/68; PULSE 92; O2SAT 96; BMI 29.4
--- NOTE | 2023-09-10 13:20 | A.OFFVIS_ITS ---
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 Patient states that he has had asthma lifelong. He has been on Advair for many years with good response to the medication. He does have a rescue inhaler but typically does not use it more than twice a week. During the summer the patient started developing worsening respiratory symptoms and did go to the ER. He had an x-ray demonstrating airspace disease suggesting pneumonia and was treated accordingly for pneumonia and also an asthma exacerbation. Currently symptoms are better. He does have increased nasal congestion and cough. These is the season change. The patient did have allergy testing many years ago. will go ahead and retest his allergies to assess his asthma phenotype. 01/30/2022 the patient is here for a pulmonary follow-up visit. Overall the patient continues to do relatively well. He does have significant allergies. We did review his allergy testing and his IgE levels above 2000. He also had significant eosinophilia. Seems to be doing better while on Advair. However, he does not do well with genetics. I did send him the Advair HFA which I believe he would respond better to. The patient ultimately may need high-dose steroids in view of his significant allergies in eosinophilia. He also has been using his rescue inhaler. We did review his is pulmonary function studies which were reassuring With no evidence of any obstruction and a mild restrictive ventilatory defect. the patient also had chest x-ray. I did demonstrate a slight nodular opacity of 7 mm on the right hemithorax. Will go ahead and repeat that x-ray in the coming months. If is still present then will request a CT scan of the chest. The patient does have significant allergies and may benefit from further biologic or immunotherapy. Currently he is symptoms are well controlled. although I suspect that he has the propensity of worsening respiratory symptoms in the springtime. Therefore him come back in the springtime to readdress the question of biologic or immunotherapy. 05/29/2022 the patient is here for a pulmonary follow-up visit. The patient overall is doing well with his current respiratory therapy. No significant worsening asthma symptoms. He is responding well and has not required his rescue inhaler. In addition to this the patient did have a chest x-ray back in the fall demonstrating small right-sided nodular opacity. I did call him and did recommend he get an x-ray. He has not done as of yet. I did explain to him the findings of the x-ray and we did look at it together. The patient will get an x-ray today. If the nodular opacity continues to be present will get a CT scan of the chest. Otherwise patient is doing well on the current therapy. Plan to follow-up in the fall. He does have significant allergies but at this point he is medically optimize at this time and no additional therapies are warranted. 03/12/2023 the patient is here for sick visit. He is having worsening respiratory symptoms for the last 3 days. He did test negative for COVID. He has had worsening chest congestion and shortness breath. Complains of chest tightness and chest congestion with productive phlegm. He has been using his respiratory therapy partial resolution of the symptoms. Denies any fevers although he has had some chills and fatigue. We did review his chest x-ray that he had back in the spring demonstrating interval resolution the 7 mm nodular density noted. on examination right now he does have significant wheezing and rhonchi. Will go ahead and treat him for lower respiratory infection exacerbating his asthma. The patient should also get a chest x-ray to follow-up with his previous x-ray. If the patient is no better he will call the office further recommendations. 09/10/2023 the patient is here for a pulmonary follow-up visit. The patient overall has been feeling well. He has been using his respiratory therapy as prescribed. We did review his blood work. He has significant eosinophilia consistent with allergic asthma or eosinophilic asthma. Although he seems to be stable on the current respiratory regimen which includes Singulair Advair HFA and antihistamine therapy. He did undergo a chest x-ray back in 05/16/2023 wi thout any acute disease. He did have a barium swallow that demonstrated some laryngeal penetration although no overt aspiration. We did talk about different swallowing techniques specially with thin liquids to minimize aspiration or micro aspirations. He will continue with the current respiratory therapy and further recommendation based on forthcoming data. He will get the Prevnar 20 vaccine prior to going home. [facility] Medical History New abnormality on chest x-ray Bronchitis Depression Diabetes Chronic GERD Anxiety Hyperlipidemia HTN (hypertension) Asthma Surgical History Hx of toe surgery Hx of repair of rotator cuff Hx of hernia repair Hx of colonoscopy Hx of esophagogastroduodenoscopy Family History Father No problems noted. Mother Hx of breast cancer Sister Diabetes Maternal Aunt Heart problem Social History Household Members: Spouse Housing: Apartment Alcohol intake: unknown Patient Tobacco Use Status: Former Tobacco user Years Smoked: 20 yrs ( quit 8 years ago) Second Hand Smoke Exposure: Yes service: No Current occupational status: retired Review of Systems Const Denies fever(s), Denies night sweats, Denies poor appetite and Denies weight loss Eyes Details: glasses Reports requires corrective lenses ENT Reports Normal hearing present, Denies dental pain, Denies hearing loss, Denies mouth pain, Reports nasal congestion, Reports nasal discharge, Denies throat swelling, Denies tongue swelling and Reports other (Dentition adequate) Card Reports no additional complaints and Reports dyspnea on exertion Resp Reports cough, Denies hemoptysis, Reports dyspnea on exertion and Reports wheezing GI Denies abdominal pain, Reports bloating and Reports heartburn Musc Reports no additional complaints Skin/Breast Denies pruritus, Denies lesions, Denies rash and Denies jaundice Neuro Reports Normal hearing present and Denies Abnormal speech present Aller/Immun Denies throat swelling, Denies tongue swelling and Reports wheezing Physical Exam Vital Signs: Last Vital Signs Pulse 92 09/10/23 13:20 BP 110/68 09/10/23 13:20 Pulse Ox 96 09/10/23 13:20 Oxygen Delivery Method Room Air 09/10/23 13:20 BMI result Body Mass Index 29.4 Const General: cooperative and no acute distress HEENT Head: Yes normocephalic and Yes atraumatic Eyes Pupils: Equal, round and reactive pupils present Neck Neck: Yes normal visual inspection Chest Chest palpation & inspection: normal inspection of the chest Resp Effort & Inspection: normal respiratory effort Auscultation: clear to auscultation bilaterally, no rhonchi and no wheezes Cardio Rate: regular rate Rhythm: regular rhythm Heart sounds: Normal, physiologic split S2 sound present Peripheral pulses: radial pulses present and posterior tibial pulses present GI Palpation (GI): Soft to palpation Auscultation: normal bowel sounds Skin General skin exam: no rashes or lesions noted, turgor normal, skin not dry, no jaundice, No spider nevi and no striae Rashes: no rashes Nails: normal Neuro Cranial nerves: Yes Equal, round and reactive pupils present and Yes Normal hearing present Speech: No Abnormal speech present Extrem General: Yes normal to inspection, No clubbing, No cyanosis and No edema Psych Appearance: grossly normal and well kempt Mental Status: mental status grossly normal Speech and movement: Normal speech and movement present Affect: normal affect Attitude: cooperative Thought process: Normal thought process present and not confabulating Thought content: Normal thought content present Insight: Limited insight present (Psych) Judgement: Limited judgement present (Psych) Assessment & Plan Assessment & Plan (1) Asthma: Code(s): J45.909 - Unspecified asthma, uncomplicated Category: Medical Qualifiers: Asthma complication type: uncomplicated Asthma persistence: persistent Asthma severity: moderate Qualified Code(s): J45.40 - Moderate persistent asthma, uncomplicated (2) GERD (gastroesophageal reflux disease): Code(s): K21.9 - Gastro-esophageal reflux disease without esophagitis Category: Medical Qualifiers: Esophagitis presence: without esophagitis Qualified Code(s): K21.9 - Gastro-esophageal reflux disease without esophagitis (3) Cough: Code(s): R05.9 - Cough, unspecified Category: Medical Qualifiers: Cough type: unspecified Qualified Code(s): R05.9 - Cough, unspecified Plan continue Advair HFA PAOLA as needed (ventolin) continue Loratidine continue singulair F/U 6 months Orders: Orders 2 Pneumococcal 20 Immunization Today Z23 - Encounter for immunization Medications: Changed From montelukast 10 mg PO DAILY To montelukast 10 mg PO DAILY 90 days 90 tabs 3RF From albuterol sulfate 90 mcg/actuation (Ventolin HFA) 2 inhalations inhalation Q4H shortness of breath To albuterol sulfate 90 mcg/actuation (Ventolin HFA) 2 inhalations inhalation Q4H 30 days 8.5 grams 11RF shortness of breath Refilled loratadine 10 mg PO DAILY 90 tabs 3RF fluticasone propion-salmeterol 115-21 mcg/actuation (Advair HFA) 2 puffs inhalation Q12H 12 ea 11RF Coding Level of Care Code Est Pt Level 4 (45181) Diagnoses Moderate persistent asthma without complication J45.40 Asthma complication type: uncomplicated Asthma persistence: persistent Asthma severity: moderate Gastroesophageal reflux disease without esophagitis K21.9 Esophagitis presence: without esophagitis Cough, unspecified type R05.9 Cough type: unspecified Time Spent (min) 16
== END 2023-09-10 13:46 | disposition home or self-care (01) ==
PROVIDERS: PCP Internal Medicine; Visit Provider Hospitalist
DX: J45.40 Moderate persistent asthma, uncomplicated (principal); K21.9 Gastro-esophageal reflux disease without esophagitis; R05.9 Cough, unspecified
CPT/HCPCS: 99214

== ENCOUNTER → 2023-09-10 13:10 | Outpatient (BNVA) | payer OTHER, SELFPAY | PROVIDERS: PCP Internal Medicine; Visit Provider Hospitalist | DX: Z23 Encounter for immunization (principal); J45.40 Moderate persistent asthma, uncomplicated; K21.9 Gastro-esophageal reflux disease without esophagitis; R05.9 Cough, unspecified | CPT/HCPCS: 90471; 90677; 99212 ==

== ENCOUNTER 2023-09-27 14:56 | Outpatient (REF) | payer OTHER, SELFPAY ==
[2023-09-27 16:34] LABS: Prostate Specific Antigen Scr 0.98 ng/mL (<0.05-4.0)
== END 2023-09-27 14:57 | disposition home or self-care (01) ==
LOC: HO.HHCL 14:56
PROVIDERS: Visit Provider Internal Medicine
DX: Z00.00 Encounter for general adult medical examination without abnormal findings (principal); Z12.5 Encounter for screening for malignant neoplasm of prostate
CPT/HCPCS: 36415; 84153

== ENCOUNTER 2023-10-03 14:30 | Outpatient (REF) | payer OTHER, SELFPAY ==
--- NOTE | ~2023-10-03 | XR_ITS ---
EXAMINATION: XR ANKLE, RIGHT XR ANKLE, LEFT CLINICAL INFORMATION: Pain. COMPARISON: April 06, 2021 and August 13, 2009. TECHNIQUE: AP and lateral views of both ankles. FINDINGS: LEFT ANKLE: There is no evidence of acute fracture or dislocation of the left ankle. No significant soft tissue swelling is seen. Ankle mortise appears intact. There is a prominent plantar calcaneal spur. RIGHT ANKLE: There is no evidence of acute fracture or dislocation of the right ankle. No significant soft tissue swelling is appreciated. Ankle mortise intact. Small plantar calcaneal spur is present. XR/XR ankle RT 2V IMPRESSION: No evidence of acute fracture or dislocation of the right or left ankle. Plantar calcaneal spurs.
--- NOTE | ~2023-10-03 | XR_ITS ---
EXAMINATION: XR ANKLE, RIGHT XR ANKLE, LEFT CLINICAL INFORMATION: Pain. COMPARISON: April 06, 2021 and August 13, 2009. TECHNIQUE: AP and lateral views of both ankles. FINDINGS: LEFT ANKLE: There is no evidence of acute fracture or dislocation of the left ankle. No significant soft tissue swelling is seen. Ankle mortise appears intact. There is a prominent plantar calcaneal spur. RIGHT ANKLE: There is no evidence of acute fracture or dislocation of the right ankle. No significant soft tissue swelling is appreciated. Ankle mortise intact. Small plantar calcaneal spur is present. XR/XR ankle LT 2V IMPRESSION: No evidence of acute fracture or dislocation of the right or left ankle. Plantar calcaneal spurs.
== END 2023-10-03 14:31 | disposition home or self-care (01) ==
LOC: HO.HHCX 14:30
PROVIDERS: Visit Provider Internal Medicine
DX: M25.571 Pain in right ankle and joints of right foot (principal); M25.572 Pain in left ankle and joints of left foot
CPT/HCPCS: 73600

== ENCOUNTER 2023-11-08 14:16 | Outpatient (REF) | payer OTHER, SELFPAY ==
--- NOTE | ~2023-11-08 | XR_ITS ---
EXAMINATION: XR CHEST CLINICAL INFORMATION: Two-week history of left posterior chest pain worse with movement of torso. COMPARISON: Chest 05/23/2023 TECHNIQUE: 2 views of the chest were obtained. FINDINGS: The lungs are well expanded and clear. No change in slight scarring and/or atelectasis in the right middle lobe. No focal consolidation, interstitial pulmonary edema or pneumothorax. The cardiomediastinal silhouette is within normal limits. No pleural effusion. Intact suture anchors of each humeral head. XR/XR chest 2V IMPRESSION: No acute cardiopulmonary disease. Electronically signed by: Dang Seaman MD 11/29/2023 02:47 PM EDT
== END 2023-11-08 14:17 | disposition home or self-care (01) ==
LOC: HO.HHCX 14:16
PROVIDERS: Visit Provider Emergency Medicine
DX: R07.89 Other chest pain (principal)
CPT/HCPCS: 71046

== ENCOUNTER 2023-11-30 13:37 | Outpatient (AMB) | payer OTHER, SELFPAY ==
--- NOTE | 2023-11-30 13:43 | A.OFFVIS_ITS ---
Vital Signs 11/30/23 13:44 Height 5 ft 9 in Weight 199 lb 4.766 oz BMI 29.4 BP 90/58 L Blood Pressure Location Rt brachial Position Sitting Pulse 98 Intake Visit Reasons: 6 months follow up Intake Note: Patient in office today in 6 months follow up of abdominal pain. CC: Patient reports about two episodes of abdominal pain. Per patient he has been feeling very tired for the last 3 months. Denies other GI symptoms today. Travel Registered Nurse Oncology Required: Yes Travel Registered Nurse Oncology Name: Edward Accompanied by: Self / Same As Patient Allergies No Known Allergies Allergy (Verified 11/30/23 13:58) HPI HPI 6 months follow up: Details: Assessment & Plan (1) Dysphagia: Comment: Lack of neuromuscular coordination referred to speech therapy, but also has benefited from dilation as of his 2021 EGD Code(s): R13.10 - Dysphagia, unspecified (2) GERD (gastroesophageal reflux disease): Code(s): K21.9 - Gastro-esophageal reflux disease without esophagitis Qualifiers: Esophagitis presence: without esophagitis Qualified Code(s): K21.9 - Gastro-esophageal reflux disease without esophagitis (3) Gastroparesis: Code(s): K31.84 - Gastroparesis (4) Irritable bowel syndrome with constipation: Code(s): K58.1 - Irritable bowel syndrome with constipation (5) Abdominal bloating: Code(s): R14.0 - Abdominal distension (gaseous) Plan Citizen [place] It does appear that his swallowing has worsened since last evaluation around 2019 but it certainly has not improved. I explained him this has to do with a coordination problem with the tongue and the swallowing mechanism and not something that is easily addressed from a GI point of view. I am uncertain why this is happening with it is possible that he had a small stroke that was missed but we may never know the reason. I again reviewed all of the recommended interventions via speech therapy since he did not seem to remember them. He is aware that he has to be extremely careful since choking could be an irreversible problem. He is encouraged to eat very slowly, to be very careful about conversing well eating any says he always sits up and does not lay back while eating. He is also encouraged to do the jes ble swallow before putting anymore food in his mouth. He continues on his pantoprazole in the morning and famotidine at night, reglan 10 mg 3 times a day, his senna, simethicone. These are all controlling his GI symptoms well. Return office visit in 6 months TODAY'S VISIT Citizen [place] #Edward Live He continues on his pantoprazole in the morning and famotidine at night, reglan 10 mg 3 times a day, his senna, simethicone. These are all controlling his GI symptoms well. He says that he has been experiencing fatigue for the past 3 mos. I will get labs including TSH since in August it was creeping up to the high/normal level. He denies any new medications or any trouble with sleep that could explain his symptoms easily. He is not feeling depressed. Return office visit in 6 months and I will call him if there is any unusual findings in his blood work. He will be due next year for repeat screening colonoscopy. [facility] Medical History (Updated 11/30/23 @ 14:18 by JATINDER Barron) Dysphagia Cough Bronchitis Pneumonia Acute bronchospasm Acute bronchitis with asthma with acute exacerbation New abnormality on chest x-ray Depression Diabetes Chronic GERD Anxiety Hyperlipidemia HTN (hypertension) Asthma Surgical History (Updated 11/30/23 @ 13:49 by JATINDER Barron) Status post rotator cuff surgery Hx of toe surgery Hx of repair of rotator cuff Hx of hernia repair Hx of colonoscopy Hx of esophagogastroduodenoscopy Family History Father No problems noted. Mother Hx of breast cancer Sister Diabetes Maternal Aunt Heart problem Social History Household Members: Spouse Housing: Apartment Alcohol intake: unknown Patient Tobacco Use Status: Former Tobacco user Years Smoked: 20 yrs ( quit 8 years ago) Second Hand Smoke Exposure: Yes service: No Current occupational status: retired Review of Systems Const Reports fatigue, Denies fever(s), Denies night sweats, Denies poor appetite and Denies weight loss Eyes Details: glasses Reports requires corrective lenses ENT Reports Normal hearing present, Denies dental pain, Denies dysphagia, Denies hearing loss, Denies mouth pain, Denies odynophagia, Denies throat swelling, Denies tongue swelling and Reports other (Dentition adequate) Card Reports no additional complaints Resp Reports no additional complaints GI Details: Denies abdominal pain, Denies melena, Reports bloating, Denies hematochezia, Reports constipation, Denies GI cramping, Denies dysphagia, Denies excessive flatus, Denies early satiety, Reports heartburn, Denies diarrhea, Denies nausea, Denies odynophagia, Denies vomiting and Denies hematemesis Skin/Breast Denies pruritus, Denies lesions, Denies rash and Denies jaundice Neuro Reports Normal hearing present and Denies Abnormal speech present Endo Details: general weakness Reports fatigue Aller/Immun Denies throat swelling and Denies tongue swelling Physical Exam Vital Signs: Last Vital Signs Pulse 98 11/30/23 13:44 BP 90/58 L 11/30/23 13:44 BMI result Body Mass Index 29.4 Const General: cooperative, no acute distress, well developed and well groomed Nutritional Appearance: average body habitus and well nourished Orientation/consciousness: oriented to person, oriented to place and oriented to time Limitations: language barrier HEENT Head: Yes normocephalic and Yes atraumatic Eyes General: appearance normal, both eyes and all related structures Pupils: Equal, round and reactive pupils present Neck Neck: Yes normal visual inspection and Yes no lymphadenopathy Thyroid: Thyroid normal Resp Effort & Inspection: normal respiratory effort and able to speak in complete sentences Auscultation: clear to auscultation bilaterally Cardio Rate: regular rate Rhythm: regular rhythm Heart sounds: Normal, physiologic split S2 sound present Peripheral pulses: radial pulses present and posterior tibial pulses present GI Inspection: No distended, No Abdominal panniculus present and Yes obesity Palpation (GI): Soft to palpation, nontender, no guarding, not rigid and No hepatosplenomegaly present Percussion: Yes normal to percussion Auscultation: normal bowel sounds Rectal Exam - Male: Yes deferred Skin General skin exam: no rashes or lesions noted, turgor normal, skin not dry, no jaundice, No spider nevi and no striae Rashes: no rashes Nails: normal Neuro General: oriented to person, oriented to place and oriented to time Cranial nerves: Yes Equal, round and reactive pupils present and Yes Normal hearing present Speech: No Abnormal speech present Extrem General: Yes normal to inspection, No clubbing, No cyanosis and No edema Psych Appearance: grossly normal and well kempt Mental Status: mental status grossly normal Speech and movement: Normal speech and movement present Affect: normal affect Attitude: cooperative Thought process: Normal thought process present and not confabulating Thought content: Normal thought content present Insight: Limited insight present (Psych) Judgement: Limited judgement present (Psych) Assessment & Plan Assessment & Plan (1) GERD (gastroesophageal reflux disease): Code(s): K21.9 - Gastro-esophageal reflux disease without esophagitis Category: Medical Qualifiers: Esophagitis presence: without esophagitis Qualified Code(s): K21.9 - Gastro-esophageal reflux disease without esophagitis (2) Gastroparesis: Code(s): K31.84 - Gastroparesis Category: Medical (3) Abdominal bloating: Code(s): R14.0 - Abdominal distension (gaseous) Category: Medical (4) Irritable bowel syndrome with constipation: Code(s): K58.1 - Irritable bowel syndrome with constipation Category: Medical (5) Fatigue: Code(s): R53.83 - Other fatigue Category: Medical Plan Citizen [place] #Edward Live He continues on his pantoprazole in the morning and famotidine at night, reglan 10 mg 3 times a day, his senna, simethicone. These are all controlling his GI symptoms well. He says that he has been experiencing fatigue for the past 3 mos. I will get labs including TSH since in August it was creeping up to the high/normal level. He denies any new medications or any trouble with sleep that could explain his symptoms easily. He is not feeling depressed. Return office visit in 6 months and I will call him if there is any unusual findings in his blood work. He will be due next year for repeat screening colonoscopy. Orders: Orders Comprehensive Met. Panel Today R53.83 - Other fatigue Complete Blood Count Auto Diff Today R53.83 - Other fatigue TSH reflex Free T4 Today R53.83 - Other fatigue Medications: Refilled famotidine 40 mg PO BEDTIME 90 tabs 1RF K21.9 - Gastro-esophageal reflux disease without esophagitis pantoprazole 40 mg PO QAM 30 tabs 6RF sennosides (senna) 17.2 mg (2 x 8.6 mg) PO BEDTIME 60 tabs 6RF for constipation simethicone 180 mg PO QID PRN 90 caps 6RF for gas K21.9 - Gastro-esophageal reflux disease without esophagitis, K58.1 - Irritable bowel syndrome with constipation, R14.0 - Abdominal distension (gaseous) metoclopramide HCl 10 mg PO TID 90 tabs 6RF Coding Level of Care Code Est Pt Level 3 (31490) Diagnoses Gastroesophageal reflux disease without esophagitis K21.9 Esophagitis presence: without esophagitis Gastroparesis K31.84 Abdominal bloating R14.0 Irritable bowel syndrome with constipation K58.1 Fatigue R53.83
[2023-11-30 13:44] VITALS: BP 90/58; PULSE 98; BMI 29.4
== END 2023-11-30 14:17 | disposition home or self-care (01) ==
PROVIDERS: PCP Internal Medicine; Visit Provider Nurse Practitioner
DX: K21.9 Gastro-esophageal reflux disease without esophagitis (principal); K31.84 Gastroparesis; R14.0 Abdominal distension (gaseous); K58.1 Irritable bowel syndrome with constipation; R53.83 Other fatigue
CPT/HCPCS: 99213

== ENCOUNTER 2023-11-30 13:37 | Outpatient (REF) | payer OTHER, SELFPAY ==
[2023-11-30 14:45] LABS: MANUAL DIFF FLAG NO
[2023-11-30 15:19] LABS: Basophils Absolute Auto 0.1 X10*3/uL (0.0-0.2); Basophils Percent Auto 0.6 % (0-2); Eosinophils Absolute Auto 0.6 X10*3/uL (0.0-0.4); Eosinophils Percent Auto 5.1 % (0-4); Hematocrit 46.1 % (42.0-52.0); Hemoglobin 14.9 g/dl (14.0-18.0); Imm Gran Abs Auto 0.05 X10*3/uL (0.00-0.03); Imm Gran Pct Auto 0.4 % (0.0-0.4); Lymphocytes Absolute Auto 2.5 X10*3/uL (1.2-4.9); Lymphocytes Percent Auto 21.8 % (20-40); Mean Corpuscular HGB Conc 32.3 g/dl (31.0-36.0); Mean Corpuscular Hemoglobin 28.7 pg (27.0-33.0); Mean Corpuscular Volume 88.7 fL (80.0-98.0); Monocytes Absolute Auto 1.1 X10*3/uL (0.1-1.2); Monocytes Percent Auto 9.3 % (2-11); Neutrophils Absolute Auto 7.3 x10*3/uL (2.0-8.3); Neutrophils Percent Auto 62.8 % (45-73); Platelet Count 219 X10*3/uL (160-400); Red Cell Distribution Width 15.5 % (11.0-16.0); White Blood Count 11.6 X10*3/uL (4.8-10.8)
[2023-11-30 18:07] LABS: Alanine Aminotransferase 17 U/L (0-40); Albumin Level 4.2 g/dL (3.5-5.0); Alkaline Phosphatase 53 U/L (39-117); Anion Gap 14 (12-20); Aspartate Amino Transferase 17 U/L (5-37); Bilirubin Total 0.2 mg/dL (0.0-1.0); Blood Urea Nitrogen 18 mg/dL (9-16); Calcium 9.4 mg/dL (8.4-10.2); Carbon Dioxide 23 mmol/L (22-29); Chloride 108 mmol/L (96-108); Estimated Glomerular Filt Rate 39; Glucose Random 121 mg/dL (60-115); Potassium 4.5 mmol/L (3.3-5.1); Sodium 140 mmol/L (135-145); TSH reflex Free T4 1.92 uIU/mL (0.32-4.0); Total Protein 7.9 g/dL (6.5-8.0)
== END 2023-11-30 13:38 | disposition home or self-care (01) ==
LOC: HO.LAB 13:37
PROVIDERS: PCP Internal Medicine; Visit Provider Nurse Practitioner
DX: M53.83 Other specified dorsopathies, cervicothoracic region (principal); R13.10 Dysphagia, unspecified; K21.9 Gastro-esophageal reflux disease without esophagitis; K31.84 Gastroparesis; K58.1 Irritable bowel syndrome with constipation; R14.0 Abdominal distension (gaseous)
CPT/HCPCS: 36415; 80053; 84443; 85025; 99212

== ENCOUNTER 2024-02-01 12:53 | Outpatient (AMB) | payer OTHER, SELFPAY ==
--- NOTE | 2024-02-01 13:35 | HO.NEPHOV_ITS ---
Vital Signs 02/01/24 13:37 Height 5 ft 9 in Weight 192 lb 4 oz BMI 28.4 BP 100/60 Blood Pressure Location Rt brachial Position Sitting Pulse 103 H Pulse Source Pulse Oximeter Pulse Oximetry (%) 95 Oxygen Delivery Method Room Air Intake Visit Reasons: Abnormal results of kidney function studies Defense Travel Administrator Required: Yes Defense Travel Administrator Language: Crisis Clinician Services: Defense Travel Administrator Present Defense Travel Administrator Name: Lyndsay [id number] Accompanied by: Self / Same As Patient Allergies No Known Allergies Allergy (Verified 02/01/24 13:36) HPI Comments Details: Sancho was seen in consultation for rise in serum creatinine. He is a long standing diabetic but has not had any significant proteinuria. He is on multiple blood sugar lowering medications including Jardiance. He denies any hypoglycemias. He is not on any ACEI/ARB and denies taking excess NSAID's. He denies any CAD, carotid stenosis, CVA, PAD, SHAE or CHF. He denies any epistaxis, photosensitivity, skin rashes, edema, hemoptysis, hemetemesis, melena, hematuria, recurrent sore throat, hepatitis, HIV , deafness. His recent serum creatinine was 1.75 [facility] Medical History (Updated 02/02/24 @ 20:28 by Salvatore Marinelli MD) Dysphagia Cough Bronchitis Pneumonia Acute bronchospasm Acute bronchitis with asthma with acute exacerbation New abnormality on chest x-ray Depression Diabetes Chronic GERD Anxiety Hyperlipidemia HTN (hypertension) Asthma Surgical History Status post rotator cuff surgery Hx of toe surgery Hx of repair of rotator cuff Hx of hernia repair Hx of colonoscopy Hx of esophagogastroduodenoscopy Family History Father No problems noted. Mother Hx of breast cancer Sister Diabetes Maternal Aunt Heart problem Social History Household Members: Spouse Housing: Apartment Alcohol intake: unknown Patient Tobacco Use Status: Former Tobacco user Years Smoked: 20 yrs ( quit 8 years ago) Second Hand Smoke Exposure: Yes service: No Current occupational status: retired Review of Systems Const All systems reviewed & are unremarkable except as noted in HPI and below Physical Exam Vital Signs: Last Vital Signs Pulse 103 H 02/01/24 13:37 BP 100/60 02/01/24 13:37 Pulse Ox 95 02/01/24 13:37 Oxygen Delivery Method Room Air 02/01/24 13:37 BMI result Body Mass Index 28.4 Const General: comfortable and no acute distress Orientation/consciousness: patient oriented x3 HEENT Head: Yes normocephalic Mouth: Normal oral and palatal mucosa present Eyes EOM: EOMs intact bilaterally Neck Neck: Yes supple Resp Auscultation: clear to auscultation bilaterally Cardio Jugular venous distension: no JVD Rate: regular rate GI Palpation (GI): Soft to palpation Auscultation: normal bowel sounds General: Yes no CVA tenderness Back/Spine/Pelvis Back: no CVA tenderness Skin General skin exam: no rashes or lesions noted Neuro General: patient oriented x3 and moves all extremities Extrem General: Yes no pedal edema Results Reviewed Nephrology Results: Hgb 14.9 g/dl (14.0-18.0) 11/30/23 WBC 11.6 X10*3/uL (4.8-10.8) H 11/30/23 Plt Count 219 X10*3/uL (160-400) 11/30/23 Sodium 140 mmol/L (135-145) 11/30/23 Potassium 4.5 mmol/L (3.3-5.1) 11/30/23 Chloride 108 mmol/L (96-108) 11/30/23 Carbon Dioxide 23 mmol/L (22-29) 11/30/23 BUN 18 mg/dL (9-16) H 11/30/23 Creatinine 1.75 mg/dL (0.5-1.4) H 11/30/23 Calcium 9.4 mg/dL (8.4-10.2) 11/30/23 Assessment & Plan Assessment & Plan (1) Acute kidney injury superimposed on stage 3a chronic kidney disease: Code(s): N17.9 - Acute kidney failure, unspecified; N18.31 - Chronic kidney disease, stage 3a Category: Medical Plan Sancho most likely had tubular injury causing rise in serum creatinine. He has DM for long time and has underlying CKD. He never had significant proteinuria in the past. His urine output is good. Differential diagnosis is quite broad for his TONA. I have ordered extensive work up as well as imaging. He likely will need renal biopsy. All these have been explained in detail. Further management is pending evolving data Orders: Orders US renal BI 2 Weeks N17.9 - Acute kidney failure, unspecified UA and rflx microscopic 2 Weeks N17.9 - Acute kidney failure, unspecified Myeloperoxidase Antibody 2 Weeks N17.9 - Acute kidney failure, unspecified Anti Glomerular Basement Memb 2 Weeks N17.9 - Acute kidney failure, unspecified Complement C3 2 Weeks N17.9 - Acute kidney failure, unspecified Hepatitis B Core Antibody 2 Weeks N17.9 - Acute kidney failure, unspecified Creatinine 2 Weeks N17.9 - Acute kidney failure, unspecified Blood Urea Nitrogen 2 Weeks N17.9 - Acute kidney failure, unspecified Electrolytes 2 Weeks N17.9 - Acute kidney failure, unspecified Calcium 2 Weeks N17.9 - Acute kidney failure, unspecified Complete Blood Count no Diff 2 Weeks N17.9 - Acute kidney failure, unspecified Prothrombin Time INR 2 Weeks N17.9 - Acute kidney failure, unspecified Protein Creatinine Ratio, Ur 2 Weeks N17.9 - Acute kidney failure, unspecified Anti DNA DS Antibody 2 Weeks N17.9 - Acute kidney failure, unspecified Proteinase 3 PR3 Antibodies 2 Weeks N17.9 - Acute kidney failure, unspecified Immunofixation Pnl, Serum 2 Weeks N17.9 - Acute kidney failure, unspecified Complement C4 2 Weeks N17.9 - Acute kidney failure, unspecified Phospholipase A2 Receptor Pnl 2 Weeks N17.9 - Acute kidney failure, unspecified Hepatitis B Surface Antigen 2 Weeks N17.9 - Acute kidney failure, unspecified Coding Level of Care Code New Pt Level 4 (94742) Diagnoses Acute kidney injury superimposed on stage 3a chronic kidney disease N17.9; N18.31
[2024-02-01 13:37] VITALS: BP 100/60; PULSE 103; O2SAT 95; BMI 28.4
== END 2024-02-01 13:59 | disposition home or self-care (01) ==
PROVIDERS: PCP Internal Medicine; Referring Provider Nurse Practitioner; Visit Provider Internal Medicine Nephrology
DX: N17.9 Acute kidney failure, unspecified (principal); N18.31 Chronic kidney disease, stage 3a
CPT/HCPCS: 99204

== ENCOUNTER → 2024-02-01 12:53 | Outpatient (BNVA) | payer OTHER, SELFPAY | PROVIDERS: PCP Internal Medicine; Referring Provider Nurse Practitioner; Visit Provider Internal Medicine Nephrology | DX: I12.9 Hypertensive chronic kidney disease with stage 1 through stage 4 chronic kidney disease, or unspecified chronic kidney disease (principal); N18.31 Chronic kidney disease, stage 3a; N17.9 Acute kidney failure, unspecified | CPT/HCPCS: 99202 ==

== ENCOUNTER 2024-02-07 15:09 | Outpatient (REF) | payer OTHER, SELFPAY | END 2024-02-07 15:10 | disposition home or self-care (01) | LOC: HO.HHCX 15:09 | PROVIDERS: PCP Internal Medicine; Visit Provider Internal Medicine | DX: M25.562 Pain in left knee (principal) | CPT/HCPCS: 73564 ==

== ENCOUNTER 2024-02-11 14:27 | Outpatient (REF) | payer OTHER, SELFPAY ==
[2024-02-11 15:33] LABS: Appearance Urine Cloudy; Color Urine Yellow; Glucose Urine UA >=1000 mg/dL (Negative); Leukocyte Esterase Urine Negative (Negative); Nitrite Urine Negative (Negative); PH 5.5 (5.0-9.0); Specific Gravity - Urine >= 1.030 (1.005-1.025); UMIC TRIGGER UA YES; Urine Blood Negative (Negative); Urine Ketones Negative (Negative); Urine Protein Negative (Neg-Trace)
[2024-02-11 15:33] LABS: Hematocrit 46.4 % (42.0-52.0); Hemoglobin 14.9 g/dl (14.0-18.0); Mean Corpuscular HGB Conc 32.1 g/dl (31.0-36.0); Mean Corpuscular Hemoglobin 28.7 pg (27.0-33.0); Mean Corpuscular Volume 89.4 fL (80.0-98.0); Mean Platelet Volume 9.4 fL (9.4-12.4); Platelet Count 237 X10*3/uL (160-400); Red Blood Count 5.19 X10*6/uL (4.60-5.80); Red Cell Distribution Width 15.3 % (11.0-16.0); White Blood Count 9.6 X10*3/uL (4.8-10.8)
[2024-02-11 15:38] LABS: Bacteria Urine None Seen (None Seen); Hyaline Casts Urine 0-2 /LPF (0-2); RBC Urine 0-2 /HPF (0-2); Squamous Epithelial Cell Urine 0-2 /HPF (0-2); WBC Urine 0-5 /HPF (0-5)
[2024-02-11 15:40] LABS: Prothrombin Time 12.2 SEC (10.9-12.4)
[2024-02-11 15:52] LABS: Anion Gap 15 (12-20); Blood Urea Nitrogen 15 mg/dL (9-16); Calcium 9.2 mg/dL (8.4-10.2); Carbon Dioxide 22 mmol/L (22-29); Chloride 105 mmol/L (96-108); Estimated Glomerular Filt Rate 59; Potassium 4.3 mmol/L (3.3-5.1); Sodium 138 mmol/L (135-145)
[2024-02-11 15:55] LABS: Creatinine Urine 66.64 mg/dL; Total Protein Urine Random < 7 mg/dL (<12)
[2024-02-12 07:59] LABS: HBc Num1 0.12 S/CO (0.00-0.79); HBsAGNum1 0.31 S/CO (0.00-0.99); Hepatitis B Core Antibody Nonreactive (Nonreactive); Hepatitis B Surface Antigen Negative (Negative)
[2024-02-12 14:19] LABS: Anti DNA DS Antibody 4 IU/mL; Anti Glomerular Basement Memb <1.0 AI; Myeloperoxidase Antibody <1.0 AI; Proteinase 3 PR3 Antibodies <1.0 AI
[2024-02-12 16:24] LABS: Complement C3 151 mg/dL (82-185)
[2024-02-16 17:03] LABS: IgA 380 mg/dL (70-320); IgG 1644 mg/dL (600-1540); IgM 238 mg/dL (50-300)
[2024-02-16 23:38] LABS: Phospholipase A2 IgG ELISA <4 RU/mL; Phospholipase A2 IgG IFA NEGATIVE (NEGATIVE)
== END 2024-02-11 14:28 | disposition home or self-care (01) ==
LOC: HO.LAB 14:27
PROVIDERS: PCP Internal Medicine; Visit Provider Internal Medicine Nephrology
DX: N17.9 Acute kidney failure, unspecified (principal)
CPT/HCPCS: 36415; 80051; 81001; 82310; 82565; 82570; 82784; 83520; 84156; 84520; 85027; 85610; 86021; 86160; 86225; 86255; 86334; 86704; 87340

== ENCOUNTER 2024-02-15 13:39 | Outpatient (REF) | payer OTHER, SELFPAY ==
--- NOTE | ~2024-02-15 | US_ITS ---
EXAMINATION: US RETROPERITONEAL LIMITED (RENAL ONLY) CLINICAL INFORMATION: Acute kidney failure. COMPARISON: CT 10/09/2012 TECHNIQUE: Sonographic evaluation of the kidneys. FINDINGS: RIGHT KIDNEY: 10.8 x 5.1 x 5.3 cm (SAG x AP x TRV). The kidney is normal in size, contour, and echogenicity. Renal cortical thickness is normal. No calculi or focal parenchymal lesions. No hydronephrosis. LEFT KIDNEY: 10.9 x 4.9 x 5.0 cm (SAG x AP x TRV). The kidney is normal in size, contour, and echogenicity. Renal cortical thickness is normal. No calculi or focal parenchymal lesions. No hydronephrosis. US/US renal BI IMPRESSION: Normal renal ultrasound. No hydronephrosis. Electronically signed by: Warren Guaman MD 02/16/2024 11:06 AM [facility]
== END 2024-02-15 13:40 | disposition home or self-care (01) ==
LOC: HO.US 13:39
PROVIDERS: PCP Internal Medicine; Visit Provider Emergency Medicine
DX: N17.9 Acute kidney failure, unspecified (principal)
CPT/HCPCS: 76775

== ENCOUNTER 2024-03-07 13:23 | Outpatient (AMB) | payer OTHER, SELFPAY ==
[2024-03-07 13:38] VITALS: BP 108/78; PULSE 93; O2SAT 96; BMI 28.9
--- NOTE | 2024-03-07 13:38 | HO.NEPHOV_ITS ---
Vital Signs 03/07/24 13:38 Height 5 ft 9 in Weight 196 lb BMI 28.9 BP 108/78 Blood Pressure Location Rt brachial Position Sitting Pulse 93 Pulse Source Pulse Oximeter Pulse Oximetry (%) 96 Oxygen Delivery Method Room Air Intake Visit Reasons: 1mon follow up w/labs- Conf Nursing Program Coordinator Required: Yes Nursing Program Coordinator Name: Susan Parekh Accompanied by: Self / Same As Patient Allergies No Known Allergies Allergy (Verified 03/07/24 13:42) HPI Comments Details: Sancho was seen in follow up for his recent TONA on CKD . He is a long standing diabetic but has not had any significant proteinuria. He is on multiple blood sugar lowering medications including Jardiance. He denies any hypoglycemias. He is not on any ACEI/ARB and denies taking excess NSAID's. He denies any CAD, carotid stenosis, CVA, PAD, SHAE or CHF. He denies any epistaxis, photosensitivity, skin rashes, edema, hemoptysis, hemetemesis, melena, hematuria, recurrent sore throat, hepatitis, HIV , deafness. His recent serum creatinine has improved to baseline [facility] Medical History (Updated 03/08/24 @ 22:30 by Salvatore Marinelli MD) HTN (hypertension) Dysphagia Cough Bronchitis Pneumonia Acute bronchospasm Acute bronchitis with asthma with acute exacerbation New abnormality on chest x-ray Depression Diabetes Chronic GERD Anxiety Hyperlipidemia Asthma Surgical History Status post rotator cuff surgery Hx of toe surgery Hx of repair of rotator cuff Hx of hernia repair Hx of colonoscopy Hx of esophagogastroduodenoscopy Family History Father No problems noted. Mother Hx of breast cancer Sister Diabetes Maternal Aunt Heart problem Social History Household Members: Spouse Housing: Apartment Alcohol intake: unknown Patient Tobacco Use Status: Former Tobacco user Years Smoked: 20 yrs ( quit 8 years ago) Second Hand Smoke Exposure: Yes service: No Current occupational status: retired Review of Systems Const All systems reviewed & are unremarkable except as noted in HPI and below Physical Exam Vital Signs: Last Vital Signs Pulse 93 03/07/24 13:38 BP 108/78 03/07/24 13:38 Pulse Ox 96 03/07/24 13:38 Oxygen Delivery Method Room Air 03/07/24 13:38 BMI result Body Mass Index 28.9 Const General: comfortable and no acute distress Orientation/consciousness: patient oriented x3 HEENT Head: Yes normocephalic Mouth: Normal oral and palatal mucosa present Eyes EOM: EOMs intact bilaterally Neck Neck: Yes supple Resp Auscultation: clear to auscultation bilaterally Cardio Jugular venous distension: no JVD Rate: regular rate GI Palpation (GI): Soft to palpation Auscultation: normal bowel sounds General: Yes no CVA tenderness Back/Spine/Pelvis Back: no CVA tenderness Skin General skin exam: no rashes or lesions noted Neuro General: patient oriented x3 and moves all extremities Extrem General: Yes no pedal edema Results Reviewed Nephrology Results: Hgb 14.9 g/dl (14.0-18.0) 02/11/24 WBC 9.6 X10*3/uL (4.8-10.8) 02/11/24 Plt Count 237 X10*3/uL (160-400) 02/11/24 Sodium 138 mmol/L (135-145) 02/11/24 Potassium 4.3 mmol/L (3.3-5.1) 02/11/24 Chloride 105 mmol/L (96-108) 02/11/24 Carbon Dioxide 22 mmol/L (22-29) 02/11/24 BUN 15 mg/dL (9-16) 02/11/24 Creatinine 1.24 mg/dL (0.5-1.4) 02/11/24 Calcium 9.2 mg/dL (8.4-10.2) 02/11/24 Urine Protein Negative mg/dL (Neg-Trace) 02/11/24 Urine Creatinine 66.64 mg/dL 02/11/24 Protein/Creatinin Ratio TNP 02/11/24 Renal US 02/15/24 Assessment & Plan Assessment & Plan (1) Acute kidney injury superimposed on stage 3a chronic kidney disease: Code(s): N17.9 - Acute kidney failure, unspecified; N18.31 - Chronic kidney disease, stage 3a Category: Medical (2) HTN (hypertension): Code(s): I10 - Essential (primary) hypertension Category: Medical Qualifiers: Hypertension type: primary hypertension Qualified Code(s): I10 - Essential (primary) hypertension Plan Sancho had tubular injury causing rise in serum creatinine, which has resolved. He has DM for long time and has underlying CKD. He never had significant proteinuria in the past. His urine output is good. He is on Jardiance. I plan to initiate him on low dose of ACEI @ next visit. He should avoid NSAID's and ensure good hydration. All these have been explained in detail. Further management is pending evolving data Orders: Orders Creatinine 3 Months N17.9 - Acute kidney failure, unspecified, N18.31 - Chronic kidney disease, stage 3a Blood Urea Nitrogen 3 Months N17.9 - Acute kidney failure, unspecified, N18.31 - Chronic kidney disease, stage 3a Electrolytes 3 Months N17.9 - Acute kidney failure, unspecified, N18.31 - Chronic kidney disease, stage 3a Coding Level of Care Code Est Pt Level 4 (34701) Diagnoses Acute kidney injury superimposed on stage 3a chronic kidney disease N17.9; N18.31 Primary hypertension I10 Hypertension type: primary hypertension
== END 2024-03-07 13:50 | disposition home or self-care (01) ==
PROVIDERS: PCP Internal Medicine; Visit Provider Internal Medicine Nephrology
DX: N17.9 Acute kidney failure, unspecified (principal); I12.9 Hypertensive chronic kidney disease with stage 1 through stage 4 chronic kidney disease, or unspecified chronic kidney disease; N18.31 Chronic kidney disease, stage 3a
CPT/HCPCS: 99214

== ENCOUNTER → 2024-03-07 13:23 | Outpatient (BNVA) | payer OTHER, SELFPAY | PROVIDERS: PCP Internal Medicine; Visit Provider Internal Medicine Nephrology | DX: N17.9 Acute kidney failure, unspecified (principal); I12.9 Hypertensive chronic kidney disease with stage 1 through stage 4 chronic kidney disease, or unspecified chronic kidney disease; N18.31 Chronic kidney disease, stage 3a | CPT/HCPCS: 99212 ==

== ENCOUNTER → 2024-03-14 13:02 | Outpatient (BNVA) | payer OTHER, SELFPAY | PROVIDERS: PCP Internal Medicine; Visit Provider Hospitalist | DX: J45.40 Moderate persistent asthma, uncomplicated (principal); K21.9 Gastro-esophageal reflux disease without esophagitis; R05.9 Cough, unspecified | CPT/HCPCS: 99212 ==

== ENCOUNTER → 2024-03-14 13:02 | Outpatient (AMB) | payer OTHER, SELFPAY ==
[2024-03-14 13:09] VITALS: BP 110/68; PULSE 96; O2SAT 94; BMI 28.8
--- NOTE | 2024-03-14 13:09 | A.OFFVIS_ITS ---
Vital Signs 03/14/24 13:09 Height 5 ft 9 in Weight 195 lb 1.745 oz BMI 28.8 BP 110/68 Blood Pressure Location Lt brachial Position Sitting Pulse 96 Pulse Source Pulse Oximeter Pulse Oximetry (%) 94 Oxygen Delivery Method Room Air Intake Visit Reasons: Asthma Allergies No Known Allergies Allergy (Verified 03/14/24 13:10) HPI Comments Details: The patient is a 63-year-old gentleman with a known history of asthma who is now stop listening his care at [facility]. Patient states that he has had asthma lifelong. He has been on Advair for many years with good response to the medication. He does have a rescue inhaler but typically does not use it more than twice a week. During the summer the patient started developing worsening respiratory symptoms and did go to the ER. He had an x-ray demonstrating airspace disease suggesting pneumonia and was treated accordingly for pneumonia and also an asthma exacerbation. Currently symptoms are better. He does have increased nasal congestion and cough. These is the season change. The patient did have allergy testing many years ago. will go ahead and retest his allergies to assess his asthma phenotype. 01/30/2022 the patient is here for a pulmonary follow-up visit. Overall the patient continues to do relatively well. He does have significant allergies. We did review his allergy testing and his IgE levels above 2000. He also had significant eosinophilia. Seems to be doing better while on Advair. However, he does not do well with genetics. I did send him the Advair HFA which I believe he would respond better to. The patient ultimately may need high-dose steroids in view of his significant allergies in eosinophilia. He also has been using his rescue inhaler. We did review his is pulmonary function studies which were reassuring With no evidence of any obstruction and a mild restrictive ventilatory defect. the patient also had chest x-ray. I did demonstrate a slight nodular opacity of 7 mm on the right hemithorax. Will go ahead and repeat that x-ray in the coming months. If is still present then will request a CT scan of the chest. The patient does have significant allergies and may benefit from further biologic or immunotherapy. Currently he is symptoms are well controlled. although I suspect that he has the propensity of worsening respiratory symptoms in the springtime. Therefore him come back in the springtime to readdress the question of biologic or immunotherapy. 05/29/2022 the patient is here for a pulmonary follow-up visit. The patient overall is doing well with his current respiratory therapy. No significant worsening asthma symptoms. He is responding well and has not required his rescue inhaler. In addition to this the patient did have a chest x-ray back in the fall demonstrating small right-sided nodular opacity. I did call him and did recommend he get an x-ray. He has not done as of yet. I did explain to him the findings of the x-ray and we did look at it together. The patient will get an x-ray today. If the nodular opacity continues to be present will get a CT scan of the chest. Otherwise patient is doing well on the current therapy. Plan to follow-up in the fall. He does have significant allergies but at this point he is medically optimize at this time and no additional therapies are warranted. 03/12/2023 the patient is here for sick visit. He is having worsening respiratory symptoms for the last 3 days. He did test negative for COVID. He has had worsening chest congestion and shortness breath. Complains of chest tightness and chest congestion with productive phlegm. He has been using his respiratory therapy partial resolution of the symptoms. Denies any fevers although he has had some chills and fatigue. We did review his chest x-ray that he had back in the spring demonstrating interval resolution the 7 mm nodular density noted. on examination right now he does have significant wheezing and rhonchi. Will go ahead and treat him for lower respiratory infection exacerbating his asthma. The patient should also get a chest x-ray to follow-up with his previous x-ray. If the patient is no better he will call the office further recommendations. 09/10/2023 the patient is here for a pulmonary follow-up visit. The patient overall has been feeling well. He has been using his respiratory therapy as prescribed. We did review his blood work. He has significant eosinophilia consistent with allergic asthma or eosinophilic asthma. Although he seems to be stable on the current respiratory regimen which includes Singulair Advair HFA and antihistamine therapy. He did undergo a chest x-ray back in 05/16/2023 without any acute disease. He did have a barium swallow that demonstrated some laryngeal penetration although no overt aspiration. We did talk about different swallowing techniques specially with thin liquids to minimize aspiration or micro aspirations. He will continue with the current respiratory therapy and further recommendation based on forthcoming data. He will get the Prevnar 20 vaccine prior to going home. 03/14/2024 the patient is here for a pulmonary follow-up visit. Overall he is doing well. He continues his maintenance inhaler, Advair HFA. He also has a rescue inhaler. He has responded well to the singular. Has not had to use any other antihistamines. He denies any significant shortness of breath. We did review his last chest x-ray without any acute disease. Otherwise patient is without any other complaints. Will follow-up in a year's time. If he develops any issues prior to that he will call for an earlier assessment. [facility] Medical History (Updated 03/14/24 @ 13:22 by Pa Watson MD) Asthma-COPD overlap syndrome HTN (hypertension) Dysphagia Cough Bronchitis Pneumonia Acute bronchospasm Acute bronchitis with asthma with acute exacerbation New abnormality on chest x-ray Depression Diabetes Chronic GERD Anxiety Hyperlipidemia Asthma Surgical History Status post rotator cuff surgery Hx of toe surgery Hx of repair of rotator cuff Hx of hernia repair Hx of colonoscopy Hx of esophagogastroduodenoscopy Family History Father No problems noted. Mother Hx of breast cancer Sister Diabetes Maternal Aunt Heart problem Social History Household Members: Spouse Housing: Apartment Alcohol intake: unknown Patient Tobacco Use Status: Former Tobacco user Years Smoked: 20 yrs ( quit 8 years ago) Second Hand Smoke Exposure: Yes service: No Current occupational status: retired Review of Systems Const Denies fever(s), Denies night sweats, Denies poor appetite and Denies weight loss Eyes Details: glasses Reports requires corrective lenses ENT Reports Normal hearing present, Denies dental pain, Denies hearing loss, Denies mouth pain, Reports nasal congestion, Reports nasal discharge, Denies throat swelling, Denies tongue swelling and Reports other (Dentition adequate) Card Reports no additional complaints and Reports dyspnea on exertion Resp Reports cough, Denies hemoptysis, Reports dyspnea on exertion and Reports wheezing GI Denies abdominal pain, Reports bloating and Reports heartburn Musc Reports no additional complaints Skin/Breast Denies pruritus, Denies lesions, Denies rash and Denies jaundice Neuro Reports Normal hearing present and Denies Abnormal speech present Aller/Immun Denies throat swelling, Denies tongue swelling and Reports wheezing Physical Exam Vital Signs: Last Vital Signs Pulse 96 03/14/24 13:09 BP 110/68 03/14/24 13:09 Pulse Ox 94 03/14/24 13:09 Oxygen Delivery Method Room Air 03/14/24 13:09 BMI result Body Mass Index 28.8 Const General: cooperative and no acute distress HEENT Head: Yes normocephalic and Yes atraumatic Eyes Pupils: Equal, round and reactive pupils present Neck Neck: Yes normal visual inspection Chest Chest palpation & inspection: normal inspection of the chest Resp Effort & Inspection: normal respiratory effort Auscultation: clear to auscultation bilaterally, no rhonchi and no wheezes Cardio Rate: regular rate Rhythm: regular rhythm Heart sounds: Normal, physiologic split S2 sound present Peripheral pulses: radial pulses present and posterior tibial pulses present GI Palpation (GI): Soft to palpation Auscultation: normal bowel sounds Skin General skin exam: no rashes or lesions noted, turgor normal, skin not dry, no jaundice, No spider nevi and no striae Rashes: no rashes Nails: normal Neuro Cranial nerves: Yes Equal, round and reactive pupils present and Yes Normal hearing present Speech: No Abnormal speech present Extrem General: Yes normal to inspection, No clubbing, No cyanosis and No edema Psych Appearance: grossly normal and well kempt Mental Status: mental status grossly normal Speech and movement: Normal speech and movement present Affect: normal affect Attitude: cooperative Thought process: Normal thought process present and not confabulating Thought content: Normal thought content present Insight: Limited insight present (Psych) Judgement: Limited judgement present (Psych) Assessment & Plan Assessment & Plan (1) Asthma: Code(s): J45.909 - Unspecified asthma, uncomplicated Category: Medical Qualifiers: Asthma complication type: uncomplicated Asthma persistence: persistent Asthma severity: moderate Qualified Code(s): J45.40 - Moderate persistent asthma, uncomplicated (2) GERD (gastroesophageal reflux disease): Code(s): K21.9 - Gastro-esophageal reflux disease without esophagitis Category: Medical Qualifiers: Esophagitis presence: without esophagitis Qualified Code(s): K21.9 - Gastro-esophageal reflux disease without esophagitis (3) Cough: Code(s): R05.9 - Cough, unspecified Category: Medical Qualifiers: Cough type: unspecified Qualified Code(s): R05.9 - Cough, unspecified Plan continue Advair HFA PAOLA as needed (ventolin) continue Loratidine continue singulair melatonin for sleep F/U 8-12 months Medications: New melatonin 5 mg PO BEDTIME PRN 30 tabs 11RF sleep 30 days sodium chloride 0.9% 2.5 mL inhalation BID 180 mL 6RF 30 days J44.89 - Other specified chronic obstructive pulmonary disease, J45.40 - Moderate persistent asthma, uncomplicated Refilled montelukast 10 mg PO DAILY 90 tabs 3RF 90 days Coding Level of Care Code Est Pt Level 4 (40088) Diagnoses Moderate persistent asthma without complication J45.40 Asthma complication type: uncomplicated Asthma persistence: persistent Asthma severity: moderate Gastroesophageal reflux disease without esophagitis K21.9 Esophagitis presence: without esophagitis Cough, unspecified type R05.9 Cough type: unspecified Time Spent (min) 16
== END ==
PROVIDERS: PCP Internal Medicine; Visit Provider Hospitalist
DX: J45.40 Moderate persistent asthma, uncomplicated (principal); K21.9 Gastro-esophageal reflux disease without esophagitis; R05.9 Cough, unspecified
CPT/HCPCS: 99214

== ENCOUNTER 2024-04-16 13:48 | Emergency (ER) | payer OTHER, SELFPAY ==
--- NOTE | ~2024-04-16 | XR_ITS ---
EXAMINATION: XR CHEST CLINICAL INFORMATION: cough COMPARISON: 11/08/23. TECHNIQUE: 2 views of the chest were obtained. FINDINGS: The cardiac, hilar, and mediastinal contours are normal. Prominent epicardial fat pad. The lungs are clear bilaterally. There is no pneumothorax or pleural effusion. There is no focal osseous or soft tissue abnormality. XR/XR chest 2V IMPRESSION: No active pulmonary disease. Electronically signed by: Doug Durán MD 04/16/2024 03:10 PM [place]
[2024-04-16 14:34] VITALS: BP 140/71; PULSE 102; RESP 20; TEMP 36.4; O2SAT 98; BMI 27.9
--- NOTE | 2024-04-16 14:34 | ED.GENADULT ---
HPI - General Adult General Chief complaint: Upper Respiratory Symptoms Stated complaint: Cough, Trouble Breathing Time Seen by Provider: 04/16/24 19:47 Source: patient Mode of arrival: ambulatory Limitations: no limitations History of Present Illness ED Provider: Dr. Abby Rasheed HPI narrative: Patient comes to emergency room complaining of asthma exacerbation for couple of months. Patient states that it started 2 months ago when he tested positive for flu. Patient states that he has been using his inhaler more than usual. Patient denies any chest pain, denies any syncopal episodes, no nausea vomiting diarrhea, denies fever chills Related Data Home Medications ?Medication ?Instructions ?Recorded ?Confirmed lorazepam 0.5 mg tablet 0.5 mg PO DAILY 12/04/19 08/25/22 metformin 1,000 mg tablet 1,000 mg PO BID 12/04/19 08/25/22 sertraline 100 mg tablet 200 mg PO DAILY 12/04/19 08/25/22 atorvastatin 20 mg tablet 20 mg PO BEDTIME 07/06/20 08/25/22 gabapentin 300 mg capsule 300 mg PO BID 07/06/20 08/25/22 pioglitazone 30 mg tablet 30 mg PO DAILY@1200 07/06/20 08/25/22 aspirin 81 mg tablet,delayed 81 mg PO DAILY 11/11/20 08/25/22 release blood sugar diagnostic (FreeStyle #10 ea 11/11/20 10/12/21 Lite Strips) pen needle, diabetic 31 gauge x #1,200 ea 11/11/20 10/12/2107/11 (UltiCare Pen Needle) empagliflozin 25 mg tablet 25 mg PO DAILY 10/11/21 08/25/22 (Jardiance) insulin glargine 100 unit/mL (3 36 unit subcut BEDTIME 11/15/21 08/25/22 mL) subcutaneous pen nebulizers 05/29/22 Previous Rx's ?Medication ?Instructions ?Recorded blood sugar diagnostic (FreeStyle #100 ea 05/05/21 Lite Strips) lancets 28 gauge (FreeStyle #100 ea 05/05/21 Lancets) repaglinide 0.5 mg tablet 0.5 mg PO TID #90 tabs 08/10/21 albuterol sulfate 2.5 mg/3 mL 2.5 mg (3 mL) inhalation QID PRN 09/13/21 (0.083 %) solution for nebulization shortness of breath or wheezing #75 mL sodium chloride 0.9 % for 3 ml inhalation BID #180 mL 03/12/23 nebulization levalbuterol HCl 1.25 mg/3 mL 1.25 mg (3 mL) inhalation BID 90 04/04/23 solution for nebulization days #540 mL albuterol sulfate 90 mcg/actuation 2 inh inhalation Q4H shortness of 09/10/23 aerosol inhaler (Ventolin HFA) breath 30 days #8.5 grams fluticasone propionate 115 2 puff inhalation Q12H #12 ea 09/10/23 mcg-salmeterol 21 mcg/actuation HFA inhaler (Advair HFA) loratadine 10 mg tablet 10 mg PO DAILY #90 tabs 09/10/23 famotidine 40 mg tablet 40 mg PO BEDTIME #90 tabs 11/30/23 metoclopramide HCl 10 mg tablet 10 mg PO TID #90 tabs 11/30/23 pantoprazole 40 mg tablet,delayed 40 mg PO QAM #30 tabs 11/30/23 release sennosides 8.6 mg tablet (senna) 17.2 mg (2 x 8.6 mg) PO BEDTIME 11/30/23 for constipation #60 tabs simethicone 180 mg capsule 180 mg PO QID PRN for gas #90 caps 11/30/23 melatonin 5 mg tablet 5 mg PO BEDTIME PRN sleep 30 days 03/14/24 #30 tabs montelukast 10 mg tablet 10 mg PO DAILY 90 days #90 tabs 03/14/24 sodium chloride 0.9 % for 2.5 ml inhalation BID 30 days #180 03/14/24 nebulization mL benzonatate 100 mg capsule 100 mg PO TID PRN cough #12 caps 04/16/24 prednisone 50 mg tablet 50 mg PO DAILY #4 tabs 04/16/24 Allergies Allergy/AdvReac Type Severity Reaction Status Date / Time No Known Allergies Allergy Verified 04/16/24 14:37 Review of Systems Review of Systems: Constitutional : No Weight loss, No Fever, No Chills, No Night Sweats, No Fatigue, No Malaise ENT/Mouth : No Hearing loss, No Ear Pain, No Nasal Congestion, No Sinus Pain, No Hoarseness, No sore throat, No Rhinorrhea, No Swallowing Difficulty Eyes: No Eye Pain, No Swelling, No Redness, No Foreign Body, No Discharge, No Vision Changes Cardiovascular : No Chest Pain, No SOB, No Dyspnea on Exertion, No Orthopnea, No Edema, No Palpitations Respiratory : Complaining of cough, wheezing, shortness of breath Gastrointestinal : No Nausea, No Vomiting, No Diarrhea, No Constipation, No abdominal Pain, No Hematochezia, No Melena Genitourinary : no irregular bleeding, No Dysuria, No Urinary Frequency, No Hematuria, No Urinary Incontinence, No Urgency, No Flank Pain, No Urinary Flow Changes, No Hesitancy Musculoskeletal : No joint pain, No Myalgias, No Joint Swelling Skin : No Skin Lesions, No rash Neuro : No Weakness, No Numbness, No Paresthesias, No Loss of Consciousness, No Dizziness, No Headache Psych : No Anxiety/Panic, No Depression, No SI/HI/AH/VH, No Social Issues, Heme/Lymph: No Bruising, No Bleeding,No Lymphadenopathy Endocrine : No Polyuria, No Polydipsia, No Temperature Intolerance PMFSH Past Medical History Medical History Asthma-COPD overlap syndrome HTN (hypertension) Dysphagia Cough Bronchitis Pneumonia Acute bronchospasm Acute bronchitis with asthma with acute exacerbation New abnormality on chest x-ray Depression Diabetes Chronic GERD Anxiety Hyperlipidemia Asthma Surgical History Status post rotator cuff surgery Hx of toe surgery Hx of repair of rotator cuff Hx of hernia repair Hx of colonoscopy Hx of esophagogastroduodenoscopy Family History Family History Father No problems noted. Mother Hx of breast cancer Sister Diabetes Maternal Aunt Heart problem Social History Social History Household Members: Spouse Housing: Apartment Alcohol intake: unknown Patient Tobacco Use Status: Former Tobacco user Years Smoked: 20 yrs ( quit 8 years ago) Second Hand Smoke Exposure: Yes Advance Directives: No Advance Directives Information Provided: No Do you have a plan to hurt others: No Plan service: No Current occupational status: retired Physical Exam ED Vital Signs: Vital Signs - 24 hr 04/16/24 14:34 04/16/24 16:24 04/16/24 20:35 Temperature 97.5 F 98.0 F Pulse Rate 102 H 76 84 Respiratory Rate 20 18 14 Blood Pressure 140/71 H 112/74 Pulse Oximetry 98 98 Oxygen Delivery Method Room Air Room Air 04/16/24 21:24 Temperature Pulse Rate 88 Respiratory Rate 16 Blood Pressure Pulse Oximetry Oxygen Delivery Method BMI result Body Mass Index 27.9 Const Other: Appearance: Alert. Oriented X3. No acute distress. Eyes: Pupils equal, round and reactive to light. ENT: Pharynx normal. Neck: Normal inspection. Neck supple. No lymph nodes noted. No crepitus CVS: Normal heart rate and rhythm. Pulses normal. Normal S1 and S2 Respiratory: Dry coughing, bilateral wheezing, fairly good air movement , oxygen saturation 98% on room air Abdomen: Soft and nontender. No rigidity. No distention. Skin: Skin warm and dry. Normal skin color. Normal skin turgor. Extremities: No lower extremity edema. No Lacerations. No Rash Neuro: Oriented X 3. No motor deficit. No sensory deficit. Moving all extremities. No slurred speech. CN 2 through 12 grossly intact Psych: calm, cooperative, normal affect Course Course Course Narrative: RME, this is a rapid medical exam performed by Ellis Abdul please refer to primary provider for complete H&P- 63-year-old male past medical history significant for asthma presents for evaluation of coughing and shortness of breath. He reports his symptoms started 2 months ago. He reports that he was treated with Tamiflu with no improvement in his symptoms. Plan for chest x-ray, viral swabs. He was wheezy on exam. I also ordered a bronchodilator treatment Medications Administered Discontinued Medications Generic Name Dose Route Start Last Admin Trade Name Freq PRN Reason Stop Dose Admin Benzonatate 100 mg 04/16/24 20:31 04/16/24 21:29 Benzonatate 100 Mg Capsule PO 04/16/24 20:32 100 mg ONCE ONE Administration Albuterol Sulfate 2.5 mg/ 0 mg 04/16/24 16:24 04/16/24 16:28 Albuterol/Ipratropium 3 ml INHALE 04/16/24 16:25 5 dose ONCE ONE Administration Albuterol Sulfate 5 mg/ 0 mg 04/16/24 21:14 04/16/24 21:23 Albuterol/Ipratropium 3 ml INHALE 04/16/24 21:15 7.5 each ONCE ONE Administration Magnesium Sulfate 2 gm in 50 mls @ 25 mls/hr 04/16/24 20:31 04/16/24 21:30 Magnesium Sulfate/H2o IV 04/16/24 22:30 25 mls/hr ONCE ONE Administration Methylprednisolone Sodium Succinate 125 mg 04/16/24 20:31 04/16/24 20:59 Methylprednisolone Sod Succ 125 Mg/2 Ml Vial IVPUSH 04/16/24 20:32 125 mg ONCE ONE Administration Medical Decision Making Medical Decision Making [facility] Narrative: My interpretation of labs: Serology negative for influenza a, B, RSV and COVID Chest x-ray does not show any acute abnormality. Patient received IV Solu-Medrol, magnesium, nebulization treatments. Patient states that he feels completely back to normal. Patient has been ambulating around the floor, oxygen saturation steady at 98%, no longer wheezing or feeling short of breath. Lab Data [facility] Lab Attestation statement: I reviewed the patient's lab results. Labs: Lab Results 04/16/24 Range/Units 15:04 Influenza Type A (PCR) NEGATIVE (Negative) Influenza Type B (PCR) NEGATIVE (Negative) RSV RNA Qual (PCR) NEGATIVE (Negative) SARS-CoV-2 RNA (RT-PCR) NEGATIVE (Negative) Independent Interpretation I performed an independent interpretation of an: Plain X-Ray Radiology Impression Discussion of test interpretation with radiology: I have reviewed the radiologist's reading. Radiologist Impression: The cardiac, hilar, and mediastinal contours are normal. Prominent epicardial fat pad. The lungs are clear bilaterally. There is no pneumothorax or pleural effusion. There is no focal osseous or soft tissue abnormality. XR/XR chest 2V IMPRESSION: No active pulmonary disease. Critical Care Time Critical Care Time Critical Care Time: Yes Total Critical Care Time: 45 Attestation: I have personally provided critical care time. Time includes review of lab data, radiology results, discussion with consultants, and monitoring for potential decompensation. Intervention performed as documented. Discharge Plan Discharge Clinical Impression: Asthma, Bronchitis Patient Disposition: Home, Self-Care Instructions: Asthma (ED), Acute Bronchitis (ED) Additional Instructions: Please follow-up with your primary care physician tomorrow. If you have any worsening or new symptoms, please return to the emergency room or call 911 Prescriptions: New prednisone 50 mg tablet 50 mg PO DAILY Qty: 4 0RF benzonatate 100 mg capsule 100 mg PO TID PRN (Reason: cough) Qty: 12 0RF No Action repaglinide 0.5 mg tablet 0.5 mg PO TID Qty: 90 7RF levalbuterol HCl 1.25 mg/3 mL solution for nebulization 1.25 mg inhalation BID 90 Days Qty: 540 0RF sertraline 100 mg Tablet 200 mg PO DAILY lorazepam 0.5 mg Tablet 0.5 mg PO DAILY metformin 1,000 mg Tablet 1,000 mg PO BID pioglitazone 30 mg tablet 30 mg PO DAILY@1200 Jardiance 25 mg tablet 25 mg PO DAILY insulin glargine 100 unit/mL (3 mL) insulin pen 36 unit subcut BEDTIME albuterol sulfate 2.5 mg /3 mL (0.083 %) solution for nebulization 2.5 mg inhalation QID PRN (Reason: shortness of breath or wheezing) Qty: 75 0RF atorvastatin 20 mg tablet 20 mg PO BEDTIME gabapentin 300 mg capsule 300 mg PO BID (DME) pen needle, diabetic [UltiCare Pen Needle] 31 gauge x 5/16 needle See Rx Instructions subcut .MEDSUPPLY Qty: 1200 Rx Instructions: As directed (DME) FreeStyle Lite Strips Strip See Rx Instructions Not Applicable BID Qty: 10 Rx Instructions: As directed aspirin 81 mg tablet,delayed release (DR/EC) 81 mg PO DAILY (DME) FreeStyle Lite Strips Strip See Rx Instructions .ROUTE .MEDSUPPLY Qty: 100 11RF Rx Instructions: As directed three times a day (DME) lancets [FreeStyle Lancets] 28 gauge misc See Rx Instructions .ROUTE .MEDSUPPLY Qty: 100 11RF Rx Instructions: Three times a day (DME) nebulizers Misc See Rx Instructions .ROUTE Rx Instructions: As directed sodium chloride 0.9 % solution for nebulization 3 ml inhalation BID Qty: 180 10RF melatonin 5 mg tablet 5 mg PO BEDTIME PRN (Reason: sleep) 30 Days Qty: 30 11RF sodium chloride 0.9 % solution for nebulization 2.5 ml inhalation BID 30 Days Qty: 180 6RF montelukast 10 mg tablet 10 mg PO DAILY 90 Days Qty: 90 3RF albuterol sulfate [Ventolin HFA] 90 mcg/actuation HFA aerosol inhaler 2 inh inhalation Q4H 30 Days Qty: 8.5 11RF loratadine 10 mg tablet 10 mg PO DAILY Qty: 90 3RF fluticasone propion-salmeterol [Advair HFA] 115-21 mcg/actuation HFA aerosol inhaler 2 puff inhalation Q12H Qty: 12 11RF famotidine 40 mg tablet 40 mg PO BEDTIME Qty: 90 1RF metoclopramide HCl 10 mg tablet 10 mg PO TID Qty: 90 6RF pantoprazole 40 mg tablet,delayed release (DR/EC) 40 mg PO QAM Qty: 30 6RF sennosides [senna] 8.6 mg tablet 17.2 mg PO BEDTIME Qty: 60 6RF simethicone 180 mg capsule 180 mg PO QID PRN (Reason: for gas) Qty: 90 6RF Print Language: Venezuelan
[2024-04-16 15:47] LABS: Influenza A PCR NEGATIVE (Negative); Influenza B PCR NEGATIVE (Negative); Resp Syncy Virus RNA Qual PCR NEGATIVE (Negative); SARS COV2 PCR INHOUSE NEGATIVE (Negative)
[2024-04-16 16:24] VITALS: PULSE 76; RESP 18; O2SAT 97
[2024-04-16] MEDS: Albuterol Sulfate 2.5 MG, Albuterol/Iprat 2.5/0.5MG 3 ML 3 ML INHALE (16:28)
[2024-04-16 20:35] VITALS: BP 112/74; PULSE 84; RESP 14; TEMP 36.7; O2SAT 98
[2024-04-16] MEDS: methylPREDNISolone Sod Succ 125 MG/2 ML VIAL IVPUSH (20:59)
[2024-04-16] MEDS: Albuterol Sulfate 5 MG, Albuterol/Iprat 2.5/0.5MG 3 ML 3 ML INHALE (21:23)
[2024-04-16 21:24] VITALS: PULSE 88; RESP 16; O2SAT 92
[2024-04-16] MEDS: Benzonatate 100 MG CAPSULE PO (21:29)
[2024-04-16] MEDS: Magnesium Sulfate/H2O 2 GM/50 ML PIGGYBACK IV (21:30)
[2024-04-16 23:25] VITALS: BP 00/00; PULSE 88; RESP 16; TEMP 37
== END 2024-04-16 23:25 | disposition home or self-care (01) ==
PROVIDERS: Physician Assistant; Emergency Provider Emergency Medicine; PCP Internal Medicine
DX: J40 Bronchitis, not specified as acute or chronic (principal); J45.909 Unspecified asthma, uncomplicated; R05.9 Cough, unspecified; Z03.818 Encounter for observation for suspected exposure to other biological agents ruled out; E11.9 Type 2 diabetes mellitus without complications; I10 Essential (primary) hypertension; E78.5 Hyperlipidemia, unspecified; Z87.891 Personal history of nicotine dependence; Z79.899 Other long term (current) drug therapy
CPT/HCPCS: 0241U; 71046; 94640; 96374; 99284; J2919; J3475

== ENCOUNTER → 2024-04-16 14:35 | Outpatient (BNV) | payer OTHER, SELFPAY | PROVIDERS: PCP Internal Medicine; Visit Provider Radiology Diagnostic Radiology | DX: R05.9 Cough, unspecified (principal) | CPT/HCPCS: 71046 ==

== ENCOUNTER 2024-05-26 13:02 | Outpatient (AMB) | payer OTHER, SELFPAY ==
--- NOTE | 2024-05-26 13:06 | A.OFFVIS_ITS ---
Intake Visit Reasons: Newprob-Left knee pain/limited weight bearing. Intake Note: Sancho is a 63 year old right hand dominiant male who presents today for a new problem visit with complaints of left knee pain. The pain has been happening for more than 3 months, he denies injury, numness or tingling. The location of the pain is below his knee cap, it increases when he is walking or kneeling. He feels spasms at time, he uses ice and Tylenol. He has not tried physical therapy. Electrical Checkout Mechanic Required: Yes Electrical Checkout Mechanic Name: Sade Becerril LM Allergies No Known Allergies Allergy (Verified 04/16/24 14:37) Medication List - Last Reconciled 05/26/24 by April Montana RN albuterol sulfate 2.5 mg (3 mL) inhalation QID PRN albuterol sulfate 90 mcg/actuation (Ventolin HFA) 2 inhalations inhalation Q4H 30 days aspirin 81 mg PO DAILY atorvastatin 20 mg PO BEDTIME benzonatate 100 mg PO TID PRN blood sugar diagnostic (FreeStyle Lite Strips) As directed blood sugar diagnostic (FreeStyle Lite Strips) As directed three times a day empagliflozin (Jardiance) 25 mg PO DAILY famotidine 40 mg PO BEDTIME fluticasone propion-salmeterol 115-21 mcg/actuation (Advair HFA) 2 puffs inhalation Q12H gabapentin 300 mg PO BID insulin glargine 36 units subcut BEDTIME lancets (FreeStyle Lancets) Three times a day levalbuterol HCl 1.25 mg (3 mL) inhalation BID 90 days loratadine 10 mg PO DAILY lorazepam 0.5 mg PO DAILY melatonin 5 mg PO BEDTIME PRN 30 days metformin 1,000 mg PO BID metoclopramide HCl 10 mg PO TID montelukast 10 mg PO DAILY 90 days nebulizers As directed pantoprazole 40 mg PO QAM pen needle, diabetic (UltiCare Pen Needle) As directed pioglitazone 30 mg PO DAILY@1200 prednisone 50 mg PO DAILY repaglinide 0.5 mg PO TID sennosides (senna) 17.2 mg (2 x 8.6 mg) PO BEDTIME sertraline 200 mg PO DAILY simethicone 180 mg PO QID PRN sodium chloride 0.9% 3 mL inhalation BID sodium chloride 0.9% 2.5 mL inhalation BID 30 days HPI HPI Newprob-Left knee pain/limited weight bearing.: Details: 63-year-old gentleman who comes in today with left knee pain. His pain is present regularly especially with stairs and standing from a seated position. He is able to walk long distances but it does bother him. He has not had any treatment for this. REPLACED BY [facility] Medical History Asthma-COPD overlap syndrome HTN (hypertension) Dysphagia Cough Bronchitis Pneumonia Acute bronchospasm Acute bronchitis with asthma with acute exacerbation New abnormality on chest x-ray Depression Diabetes Chronic GERD Anxiety Hyperlipidemia Asthma Surgical History Status post rotator cuff surgery Hx of toe surgery Hx of repair of rotator cuff Hx of hernia repair Hx of colonoscopy Hx of esophagogastroduodenoscopy Family History Father No problems noted. Mother Hx of breast cancer Sister Diabetes Maternal Aunt Heart problem Social History Household Members: Spouse Housing: Apartment Alcohol intake: unknown Patient Tobacco Use Status: Former Tobacco user Years Smoked: 20 yrs ( quit 8 years ago) Second Hand Smoke Exposure: Yes service: No Current occupational status: retired Physical Exam Extrem Other: Varus alignment with full range of motion left knee. Mild gait antalgia. Retropatellar tenderness to palpation positive grind test patellofemoral joint. No effusion. No joint line tenderness. Office Procedures Joint Inj/Aspir; Non-Pain Clin Joint Injection/Drain Details: Injected 1 mL of Decadron and 3 mL 1% lidocaine and 3 mL of 0.25% Marcaine. Site was prepped using aseptic technique. Patient tolerated the procedure well. Shoulders, Hips, Knees, Knee Large Joint Injection : Left Knee Coding Procedure code (CPT) selection complete Assessment & Plan Assessment & Plan (1) Osteoarthritis of left patellofemoral joint: Code(s): M17.12 - Unilateral primary osteoarthritis, left knee Category: Medical Plan: Left patellofemoral OA that is bothersome with stair Benson and distention and standing from a seated position but not so much when he is walking on flat ground. I injected his left knee. He can follow up PRN. (2) Type 2 diabetes mellitus with hyperglycemia: Comment: Pt also has gastroparesis Code(s): E11.65 - Type 2 diabetes mellitus with hyperglycemia Category: Medical Qualifiers: Diabetes mellitus fci insulin use: with fci use Qualified Code(s): E11.65 - Type 2 diabetes mellitus with hyperglycemia; Z79.4 - technician terminal and repeater (current) use of insulin Plan: I informed him of the hyperglycemic effects of steroids. Coding Level of Care Code Est Pt Level 4 (77877) Diagnoses Osteoarthritis of left patellofemoral joint M17.12 Type 2 diabetes mellitus with hyperglycemia, with long-term current use of insulin E11.65; Z79.4 Diabetes mellitus manager intermediate insulin use: with fci use CPT Codes Shoulders, Hips, Knees, - Knee Large Joint Injection : Left Knee ([id number])
--- OUTSIDE RECORDS SUMMARY | 2024-05-26 14:40 | XMS_ITS | Encounter Summary ---
Author Organization [employer] [facility] Address [address] [facility] [address] [place] [address] Care Team Providers Care Scrubber Machine Tender Name Role Phone Danis Morales MD Primary Care Provide r Encounter Details Date Type Department Care Team (Late Contact Info) Description 06/28/2022 Abstract [facility] [address] [place] [id number] Danis Morales MD [address] [place] [address] [phone] Social History Tobacco Use Types Packs/Day Years Used Date Smoking Tobacco: Former Cigarettes Passive Smoke Exposure: Never Smokeless Tobacco: Never Depression Answer Date Recorded Patient Health Questionnaire-9 Score 4 06/06/2022 Depression Answer Date Recorded Patient Health Questionnaire-2 Score 0 06/06/2022 Sex and Gender Information Value Date Recorded Sex Assigned at Male 12/26/2021 10:18 AM EDT Legal Sex Male 10:18 AM EDT Gender Identity Male 12/26/2021 10:18 AM EDT Sexual Orientation Choose not to disclose 2021 10:18 AM EDT COVID-19 Exposure Response Date Recorded In the last 10 days, have yo u been in contact with someone who was confirmed or suspected to have Coronavirus/COVID-19? No / Unsure 06/26/2022 2:37 PM EDT documented as of this encounter Plan of Treatment Upcoming Encounters Date Type Department Care Team (Late Contact Info) Description 06/10/2024 2:00 PM EDT Office Visit [facility] [address] [place] [address] [phone] Danis Morales MD [address] [place] [address] documented as of this encounter Procedures Procedure Name Priority Date/Time Associated Diagnosis Comments COLONOSCOPY Routine 12/11/2019 documented in this encounter Results * Colonoscopy (12/11/2019) Colonoscopy Normal Normal 12/11/2019 Narrative Mandy Jessica - 12/11/2019 10:39 AM EDT Recommended 5 year follow up due to history of tubular adenoma ( see scanned report )[facility] Historical Provider HEALTH MAINTENANCE Final Result documented in this encounter Visit Diagnoses Not on filedocumented in this encounter Additional Health Concerns Assessment Noted Time PHQ-9 Depression Total Score: 4 06/07/19 23 1:43 PM EDT documented as of this encounter Care Teams Scrubber Machine Tender Relationship Specialty Start Date End Date Danis Morales MD [address] [place] [address] PCP - General Internal Medicine 11/24/13 documented as of this encounter
--- OUTSIDE RECORDS SUMMARY | 2024-05-26 14:40 | XMS_ITS | Encounter Summary ---
Author Organization [employer] [facility] Address [address] [place] [address] Care Team Providers Care Liner Replacer Name Role Phone Danis Morales MD Primary Care Provide r Encounter Details Date Type Department Care Team (Late st Contact Info) Description 02/16/2022 Orders Only [facility] [address] [place] [address] Ailin Kumar LPN Social History Tobacco Use Types Packs/Day Years Used Date Smoking Tobacco: Never Assessed Sex and Gender Information Value Date Recorded Sex Assigned at Male 12/26/2021 10:18 AM EDT Legal Sex Male 10:18 AM EDT Gender Identity Male 12/26/2021 10:18 AM EDT Sexual Orientation Choose not to disclose 2021 10:18 AM EDT documented as of this encounter Plan of Treatment Upcoming Encounters Date Type Department Care Team (Late st Contact Info) Description 06/10/2024 2:00 PM EDT Office Visit [facility] [address] [place] [address] Danis Morales MD [address] [place] [address] documented as of this encounter Visit Diagnoses Not on filedocumented in this encounter Care Teams Liner Replacer Relationship Specialty Start Date End Date Danis Morales MD [address] [place] [address] PCP - General Internal Medicine 11/24/13 documented as of this encounter
--- OUTSIDE RECORDS SUMMARY | 2024-05-26 14:40 | XMS_ITS | Encounter Summary ---
Author Organization [employer] Address [address] [facility] [address] [address] Care Team Providers Care Insurance Counselor Name Role Phone Danis Morales MD Primary Care Provide r Reason for Visit * Reason Onset Date Comments Letter for School/Work 11/24/2022 Encounter Details Date Type Department Care Team ([facility] st Contact Info) Description 11/24/2022 Telephone [facility] [address] [place] [address] Danis Morales MD [address] [place] [address] Letter for School/Work Social History Tobacco Use Types Packs/Day Years Used Date Smoking Tobacco: Former Cigarettes Passive Smoke Exposure: Past Smokeless Tobacco: Never Depression Answer Date Recorded [...] AM EDT documented as of this encounter Miscellaneous Notes * Telephone Encounter - Lydia Dumont - 11/24/2022 1:16 PM EDT Tc fom pt requesting a 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, 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, 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 For clarification, contact pt at [phone] documented in this encounter Plan of Treatment Upcoming Encounters Date Type Department Care Team (Late st Contact Info) Description 06/10/2024 2:00 PM EDT Office Visit [facility] [address] [place] [address] Danis Morales MD [address] [place], [place] [phone] documented as of this encounter Visit Diagnoses Not on filedocumented in this encounter Additional Health Concerns Assessment Noted Time PHQ-9 Depression Total Score: 4 06/07/19 23 1:43 PM EDT documented as of this encounter Care Teams Insurance Counselor Relationship Specialty Start Date End Date Danis Morales MD [address] [place], [place] [phone] PCP - General Internal Medicine 11/24/13 documented as of this encounter
--- OUTSIDE RECORDS SUMMARY | 2024-05-26 14:40 | XMS_ITS | Encounter Summary ---
Author Organization [facility] Address [address] [place] [address] 7t [place] [address] Care Team Providers Care Ergonomic Specialist Name Role Phone Danis Morales MD Primary Care Provide r Encounter Details Date Type Department Care Team (Late st Contact Info) Description 09/07/2022 Orders Only [facility] [address] [place] [address] [phone] Ailin Kumar LPN Social History Tobacco Use [...] Description 06/10/2024 2:00 PM EDT Office Visit [facility] [address] [place] [address] [phone] Danis Morales MD [address] [place], [place] [phone] documented as of this encounter Visit Diagnoses Not on filedocumented in this encounter Additional Health Concerns Assessment Noted Time PHQ-9 Depression Total Score: 4 06/07/19 23 1:43 PM EDT documented as of this encounter Care Teams Ergonomic Specialist Relationship Specialty Start Date End Date Danis Morales MD [address] [place] [address] PCP - General Internal Medicine 11/24/13 documented as of this encounter
--- OUTSIDE RECORDS SUMMARY | 2024-05-26 14:40 | XMS_ITS | Encounter Summary ---
Author Organization [employer] Address [address] [facility] 7[address] [place] [address] Care Team Providers Care Clinical Research Administrator Name Role Phone Danis Morales MD Primary Care Provide r Reason for Visit * Reason Onset Date Comments Chart Prep 05/21/2024 Encounter Details Date Type Department Care Team ([facility] st Contact Info) Description 05/21/2024 Telephone [facility] [address] [place] [address] Danis Morales MD [address] [place], [place] [phone] Chart Prep Social History Tobacco Use Types Packs/Day Years Used Date Smoking Tobacco: Former Cigarettes Passive Smoke Exposure: Past Smokeless Tobacco: Never Depression Answer Date Recorded Patient Health Questionnaire-9 Score 4 06/06/2022 Housing Stability Answer Date Recorded What is your housing situation today? I have kayleigh hutton 07/10/[address] you li ve. Do you have problems with any of the following? None of the above 07/10/2023 Food Insecurity Answer Date Recorded Within the past 12 months, y ou worried that your food would run out before you got money to buy more: Never True 07/10/2023 Within the past 12 months,th e food you bought just didn't last and you didn't have enough money to get more: Never True Transportation Answer Date Recorded In the past 12 months, has l ack of transportation kept you from medical appts, meetings, work or from getting things needed for daily living? No 07/10/2023 Utilities Answer Date Recorded In the past 12 months, has t he electric, gas, oil or water company threatened to shut off services in your home? No 07/10/2023 Depression Answer Date Recorded Patient Health Questionnaire-2 Score 0 06/06/2022 Sex and Gender Information Value Date Recorded Sex Assigned at Male 12/26/2021 10:18 AM EDT Legal Sex Male 10:18 AM EDT Gender Identity Male 12/26/2021 10:18 AM EDT Sexual Orientation Choose not to disclose 2021 10:18 AM EDT documented as of this encounter Miscellaneous Notes * Telephone Encounter - Gina Leahy [place] - 05/21/2024 10:29 AM EDT Chart Prep Labs: not applicable Images: done Vaccines due: Covid Due and RSV in Pharmacy Due Referrals: Orthopedics Pending appointment on 05/26/2024 @1:15PM Screenings: Colonoscopy , Eye Exam, and Foot Exam Overdue care gaps: A1C, Glucose, Sbirt, PQ9, Disability , and Oral Health Chart prep for upcoming appt with Dr.Esparza jackson. LB documented in this encounter Plan of Treatment Upcoming Encounters Date Type Department Care Team (Late st Contact Info) Description 06/10/2024 2:00 PM EDT Office Visit [facility] [address] [place] [address] Danis Morales MD [address] [place] [address] documented as of this encounter Visit Diagnoses Not on filedocumented in this encounter Additional Health Concerns Assessment Noted Time PHQ-9 Depression Total Score: 4 06/07/19 23 1:43 PM EDT documented as of this encounter Care Teams Clinical Research Administrator Relationship Specialty Start Date End Date Danis Morales MD [address] [place] [address] PCP - General Internal Medicine 11/24/13 documented as of this encounter
--- OUTSIDE RECORDS SUMMARY | 2024-05-26 14:40 | XMS_ITS | Encounter Summary ---
Author Organization [employer] [facility] Address [address] [facility] 7t [place] [address] Care Team Providers Care Binding Nicker Name Role Phone Danis Morales MD Primary Care Provide r Encounter Details Date Type Department Care Team (Late Contact Info) Description 04/10/2022 Orders Only [facility] [address] [place] [address] [phone] Ailin Kumar LPN Social History Tobacco Use Types Packs/Day Years Used Date Smoking Tobacco: Former Cigarettes Passive Smoke Exposure: Past Smokeless Tobacco: Never Sex and Gender Information Value Date Recorded [...] suspected to have Coronavirus/COVID-19? No / Unsure 04/10/2022 2:30 PM EST documented as of this encounter Plan of Treatment Upcoming Encounters Date Type Department Care Team (Late st Contact Info) Description 06/10/2024 2:00 PM EDT Office Visit [facility] [address] [place] [address] [phone] Danis Morales MD [address] [place] [address] [phone] documented as of this encounter Visit Diagnoses Not on filedocumented in this encounter Care Teams Binding Nicker Relationship Specialty Start Date End Date Danis Morales MD [address] [place] [address] PCP - General Internal Medicine 11/24/13 documented as of this encounter
--- OUTSIDE RECORDS SUMMARY | 2024-05-26 14:40 | XMS_ITS | Encounter Summary ---
Author Organization [employer] Address [address] [facility] [address] 7[address] [place] [address] Care Team Providers Care Learning Development Specialist Name Role Phone Danis Morales MD Primary Care Provide r Reason for Visit * Reason Comments Med Refill Encounter Details Date Type Department Care Team ([facility] st Contact Info) Description 05/21/2024 Refill [facility] [address] [place], [place] [phone] Danis Morales MD [address] [place] [address] Type 2 diabetes mellitus without complication, with long-term current use of insulin ([facility]) Social History Tobacco Use Types Packs/Day Years [...] Office Visit [facility] [address] [place] [address] Danis Morales MD [address] [place] [address] documented as of this encounter Visit Diagnoses Diagnosis Type 2 diabetes mellitus without complication, with long-term current use of insulin ([facility]) documented in this encounter Additional Health Concerns Assessment Noted Time PHQ-9 Depression Total Score: 4 06/07/19 23 1:43 PM EDT documented as of this encounter Care Teams Learning Development Specialist Relationship Specialty Start Date End Date Danis Morales MD [address] [place] [address] PCP - General Internal Medicine 11/24/13 documented as of this encounter
--- OUTSIDE RECORDS SUMMARY | 2024-05-26 14:40 | XMS_ITS | Encounter Summary ---
Author Organization [employer] Address [address] [facility] 7[address] [place] [address] Care Team Providers Care Iron Worker Name Role Phone Danis Morales MD Primary Care Provide r Encounter Details Date Type Department Care Team (Late st Contact Info) Description 04/13/2022 Orders Only [facility] [address] [place], [place] [phone] Pat Goldberg LPN Social History Tobacco Use Types Packs/Day [...] Description 06/10/2024 2:00 PM EDT Office Visit [facility] [address] [place], [place] [phone] Danis Morales MD [address] [place], [place] [phone] documented as of this encounter Visit Diagnoses Not on filedocumented in this encounter Care Teams Iron Worker Relationship Specialty Start Date End Date Danis Morales MD [address] [place] [address] PCP - General Internal Medicine 11/24/13 documented as of this encounter
--- OUTSIDE RECORDS SUMMARY | 2024-05-26 14:40 | XMS_ITS | Clinical Summary ---
Author Organization [employer] Address [address] [place] [address] Care Team Providers Care Director Of Cardiology Service Line Name Role Phone Danis Morales MD Primary Care Provide r Allergies Active Allergy Reactions Criticality Noted Date Comments Iodinated Contrast Media Hives 06/06/2022 Other reaction(s): itchy, throat felt tight pt came into [facility] 5 days post injection-states that day after injection had a tight throat and hives on his back(did not eat any new foods or start any new meds) Medications * This document contains information received from the source organization and may not represent a complete record from that organization. UltiCare Short Pen [place] 31G X 8 MM miscIndication s:Type 2 diabetes mellitus without complication, unspecified whether intermediate insulin use ([facility]) USE EVERY EVENING 100 each 3 023 Active Alcohol Swabs (Alcohol Prep) 70 % pads USE FOUR TIMES DAILY 100 each 11 024 Active montelukast (Singulair) 10 MG tablet TAKE 1 TABLET BY MOUTH EVERY EVENING 30 tablet 6 024 Active Continuous Glucose Bottle Capping Machine Operator (FreeStyle Briana 2 [place]) deviceIndicati ons:Type 2 diabetes mellitus without complication, with long-term current use of insulin ([facility]) Scan sensor every 8 hours 1 each 3 024 Active Continuous Glucose Sensor (FreeStyle Briana 2 Sensor) miscIndication s:Type 2 diabetes mellitus without complication, with long-term current use of insulin ([facility]) Apply 1 sensor every 14 days 2 each 3 024 Active Ventolin HFA 108 (90 Base) MCG/ACT inhaler INHALE 2 PUFFS BY MOUTH EVERY 4 TO 6 HOURS NEEDED 18 g 1 Active lidocaine (Lidoderm) 5 % patchIndicatio ns:Posterior chest pain Apply 1 patch topically Once per day. Remove & discard patch within 12 hours or as directed by . 30 patch 2 024 2024 Active traMADol (Ultram) 50 MG tabletIndicati ons:Posterior chest pain,Bilateral lower extremity pain Take 1 tablet (50 mg) by mouth every 8 (eight) hours if needed for severe pain. 12 tablet Active Aspirin Low Dose 81 MG EC tablet TAKE 1 TABLET BY MOUTH EVERY MORNING 90 tablet 3 024 Active TechLite Plus Pen [place] 32G X 4 MM misc USE ONCE DAILY DIRECTED 100 each 1 Active glucose blood (FREESTYLE LITE) test stripIndicatio ns:Hyperglycem ia USE DIRECTED TO TEST BLOOD SUGAR TWICE DAILY 100 strip 3 Active metFORMIN (Glucophage) 1000 MG tablet TAKE 1 TABLET BY MOUTH TWICE DAILY AT NOON AND BEDTIME 180 tablet 2 024 Active atorvastatin (Lipitor) 20 MG tablet TAKE 1 TABLET BY MOUTH EVERY EVENING 30 tablet 6 Active Jardiance 25 MG TAKE 1 TABLET BY MOUTH EVERY MORNING 30 tablet 6 025 Active pioglitazone (Actos) 30 MG tablet TAKE 1 TABLET BY MOUTH EVERYDAY AT NOON 90 tablet 2 025 Active repaglinide (Prandin) 0.5 MG tabletIndicati ons:Type 2 diabetes mellitus without complication, with long-term current use of insulin ([facility]) TAKE 1 TABLET BY MOUTH THREE TIMES DAILY 90 tablet 6 Active insulin glargine (Lantus SoloStar) 100 UNIT/ML penIndications :Type 2 diabetes mellitus without complication, with long-term current use of insulin ([facility]) INJECT 42 UNITS SUBCUTANEOUSLY AT BEDTIME 15 mL 3 025 Active zolpidem (Ambien) 5 MG tabletIndicati ons:Primary insomnia Take 1 tablet (5 mg) by mouth if needed at bedtime for sleep. 30 tablet 025 2024 Active Zoloft 50 MG tabletIndicati ons:Major Depressive Disorder Take 1 tablet (50 mg) by mouth in the morning. 30 tablet 1 025 2024 Active insulin glargine (Lantus SoloStar) 100 UNIT/ML penIndications :Type 2 diabetes mellitus without complication, with long-term current use of insulin ([facility]) INJECT 42 SUBCUTANEOUSLY AT BEDTIME 15 mL 3 024 2024 Discontinued eszopiclone (Lunesta) 3 MG tabletIndicati ons:Primary insomnia Take 1 tablet (3 mg) by mouth at bedtime. Take immediately before bedtime 30 tablet 2 025 2024 Discontinued(I neffective) sertraline (Zoloft) 25 MG tabletIndicati ons:Major Depressive Disorder Take 1 tablet (25 mg) by mouth in the morning. 30 tablet 025 2024 Discontinued(R eorder (will not trigger notification to Pharmacy)) sertraline (Zoloft) 50 MG tabletIndicati ons:Major Depressive Disorder Take 1 tablet (50 mg) by mouth in the morning. 30 tablet 025 2024 Discontinued(R eorder (will not trigger notification to Pharmacy)) Active Problems Problem Noted Date Diagnosed Date Influenza A 04/08/2024 Assessment & Plan (04/08/2024 8:47 AM EST): Tamiflu x 5d Rest (sleep at least 8 hours a night). Hydrate with plenty of water (avoid caffeine and alcohol). Use saline nose drops to loosen mucus + Flonase. Continue Albuterol inh q6h x 5d then prn SOB/Cough Take Acetaminophen (Tylenol??)/Ibuprofen as needed to reduce fever, headache, body aches or discomfort Gargle with salt water and use throat sprays/lozenges for throat pain. Use heated, humidified air. If you do not have a humidifier, take hot showers. Cover coughs and sneezes using the crook of your elbow. If you have a fever, stay home and away from others (self isolation) until fever-free for 72 hours (temperature should be less than 100??F without medication). CKD stage 3a, GFR 45-59 ml/min 02/07/2024 Assessment & Plan (02/07/2024 2:16 PM EST): Under the care of Nephrology, last seen 02/01/2024 Acute pain of left knee 02/07/2024 Assessment & Plan (02/07/2024 2:48 PM EST): Pt with c/o left knee pain x 2 months On exam no evidence of any abnormality Etiology ? OA ? Plan: left knee x-ray Bilateral ankle pain 09/27/2023 Assessment & Plan (02/07/2024 2:46 PM EST): Pt with c/o this x 3 months per his report Exam unremarkable Plain films both ankles showed: No evidence of acute fracture or dislocation of the right or left ankle. Plantar calcaneal spurs Pt saw an ortho specialist and is now using heel pads. Assessment & Plan (09/27/2023 2:47 PM EDT): Pt with c/o this x 3 months per his report Exam unremarkable Plan: Plain films both ankles Insomnia 09/27/2023 Assessment & Plan (09/27/2023 2:52 PM EDT): Pt tells me he was getting Lunesta from dr. Meda Plan: Refill Lunesta 1 mg po at bedtime (he was taking 3mg in the past but has not taken it for > 2 years) Atypical chest pain 08/23/2023 Assessment & Plan (08/23/2023 11:56 AM EDT): Evaluated by Clarifier Operator Helper Dr Ocampo Stress testing 06/2023 Negative for ischemia Other fatigue 08/23/2023 Assessment & Plan (08/23/2023 11:58 AM EDT): Exam today within normal limits Will obtain basic blood work Recent cardiac testing 06/2023 negative Follows with Pulmonary for Asthma no recent exacerbations Hgb today slightly low, will obtain a CBC Pain in right testicle 10/10/2022 Assessment & Plan (08/23/2023 11:53 AM EDT): Evaluated previous visit No trauma, denied any hematuria, no ejaculatory problems, Not sexually active Exam aside from very mild enderness, no redness, no palpable masses, nothing to suggest torsion Testicular US 09/2022; Unremarkable scrotal ultrasound. No further work up. Pt no longer complaining. Assessment & Plan (01/04/2023 2:26 PM EST): Evaluated last visit New onset, no trauma, denied any hematuria, no ejaculatory problems, Not sexually active Exam aside from very mild enderness, no redness, no palpable masses, nothing to suggest torsion Testicular US ordered but never done Today my MA will facilitate this Assessment & Plan (10/10/2022 1:51 PM EDT): New onset, no trauma, denies any hematuria, no ejaculatory problems, Not sexually active Exam aside from very mild enderness, no redness, no palpable masses, nothing to suggest torsion Plan: U/A with microscopy, GC and Chlamydia Testicular US Hyperkeratotic oral lesion 10/10/2022 Assessment & Plan (01/04/2023 2:27 PM EST): Previous visit he was referred to Dermatology to rule out squamous cell CA. Pt was supposed to call to schedule appointment but apparently never did. My MA will try to help him do this Assessment & Plan (10/10/2022 1:41 PM EDT): Pt with tiny hyperkeratotic lesion left preaurical region Plan: Dermatology referral to rule out squamous cell CA Oropharyngeal dysphagia 10/10/2022 Assessment & Plan (02/07/2024 2:39 PM EST): evaluated extensively by GI pt has gastroparesis, GI recommended Neurology evaluation Under the care of GI. Assessment & Plan (08/23/2023 11:57 AM EDT): evaluated extensively by GI pt has gastroparesis, GI recommended Neurology evaluation Last seen by GI 06/01/2023 Assessment & Plan (10/10/2022 1:45 PM EDT): evaluated extensively by GI pt has gastroparesis, GI recommended Neurology evaluation Gastroesophageal reflux disease 06/06/2022 Assessment & Plan (02/07/2024 2:20 PM EST): Pt with c/o severe GERD. Pt currently following with GI. Last seen 11/2023 Assessment & Plan (06/06/2022 12:59 PM EDT): Pt with c/o severe GERD, Was not responding to Zantac BID Previous visit we switched to Prilosec 20 mg po daily with excellent results. Upper GI series on 01/26/2015 were wnl. Pt currently following with GI. [facility] health care 06/06/2022 Assessment & Plan (02/07/2024 2:21 PM EST): PSA 09/27/2023 Normal. Colonoscopy: 12/11/2019 pathology showed fragments of TA. Assessment & Plan (09/27/2023 2:42 PM EDT): PSA 04/19/2021 Normal. Ordered a repeat Colonoscopy: 12/11/2019 pathology showed fragments of TA. Assessment & Plan (06/06/2022 1:01 PM EDT): PSA 04/19/2021 Normal Colonoscopy: 12/11/2019 pathology showed fragments of TA. Multiple acquired skin tags 06/06/2022 Assessment & Plan (06/06/2022 1:53 PM EDT): Will refer to our Adult derm clinic Hyperlipidemia 06/23/2016 Assessment & Plan (06/06/2022 12:57 PM EDT): Patient is here for a f/u Patient with elevated lipids. Most recent lipid profile from: 04/25/2021 shows a total cholesterol of: 136 triglycerides of: 100 HDL of: 42 and LDL of: 74 Currently on a regimen of: Atorvastatin 20 mg po qhs Plan: Continue Atorvastatin 20 mg po q pm, Repeat Lipid profile advised to try to adhere to a low cholesterol diet, counseled and educated about diet and exercise, Patient encouraged to come up with a personal goal for weight loss. 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 He was seen by a bioinformatics specialist (Dr Patel) last seen 04/13/2015 he repeated his PFTs that were almost normal so he recommended to DC Advair and Spiriva and keep him on Albuterol prn only Of note pt has had PFT'S and a Methacholine challenge at [facility] that was negative. Pt is on Advair HFA 250/50, Singulair and Albuterol He is now under the care of Dr Pa Watson, last seen 09/10/2023 Assessment & Plan (08/23/2023 11:46 AM EDT): Doing well, no recent exacerbation Pt has a Hx of a chronic cough for which he had an extensive pulmonary work up. He was seen by a bioinformatics specialist (Dr Patel) last seen 04/13/2015 he repeated his PFTs that were almost normal so he recommended to DC Advair and Spiriva and keep him on Albuterol prn only Of note pt has had PFT'S and a Methacholine challenge at [facility] that was negative. Pt is on Advair HFA 250/50 and Albuterol He is now under the care of Dr Pa Watson, last seen 02/2023 Assessment & Plan (06/06/2022 1:47 PM EDT): Doing well, no recent exacerbation Pt has a Hx of a chronic cough for which he had an extensive pulmonary work up. He was seen by a bioinformatics specialist (Dr Patel) last seen 04/13/2015 he repeated his PFTs that were almost normal so he recommended to DC Advair and Spiriva and keep him on Albuterol prn only Of note pt has had PFT'S and a Methacholine challenge at [facility] that was negative. Pt is on Advair HFA 250/50 and Albuterol He is now under the care of Dr Pa Watson, last seen 01/2022 Type 2 diabetes mellitus wit h stage 3a chronic kidney disease 03/11/2015 Assessment & Plan (02/07/2024 2:37 PM EST): Patient is here for a f/u regarding his DM. improved He is back under the care of Endocrinology last seen 11/12/2023 He is on a regimen of: Repaglinide 0.5 mg TID, Metformin 1000 mg po BID, Actos 30 mg po daily , Lantus 42 units sc q pm and Jardiance 25 mg po daily. he is off Glipizide. He is ineligible for GLP1s due to Gastroparesis Hgb A1c on 02/07/2024 : 7 from 7.7 from 8.7 from 10.5 Poorly controlled despite 4 different medications. Eye exam last done by Dr Connor(medical typist). Microalbumin checked on: 06/20/2023 was: 0.4 Pt is not on an JOSEPHINE inhibitor/ARB due to previous concerns of cough induced by JOSEPHINE and borderline low blood pressure. Foot check risk of zero Pt reports compliance with Asa 81 mg po daily Pt advised to: adhere to diabetic diet check your blood sugars regularly check your feet on a daily basis Plan: As per [facility] Assessment & Plan (09/27/2023 2:41 PM EDT): Patient is here for a f/u regarding his DM. He is back under the care of Endocrinology last seen 05/10/2023 has a follow up 11/12/2023 He is on a regimen of: Repaglinide 0.5 mg TID, Metformin 1000 mg po BID, Actos 30 mg po daily , Lantus 42 units sc q pm and Jardiance 25 mg po daily. he is off Glipizide. He is ineligible for GLP1s due to Gastroparesis Hgb A1c on 08/23/2023 7.7 from 8.7 from 10.5 Glucometer today shows average 129 Poorly controlled despite 4 different medications. Eye exam last done by Dr Connor(medical typist). Microalbumin checked on: 04/19/2020 was: 1.4 Pt is not on an JOSEPHINE inhibitor/ARB due to previous concerns of cough induced by JOSEPHINE and borderline low blood pressure. Foot check risk of zero Pt reports compliance with Asa 81 mg po daily Pt advised to: adhere to diabetic diet check your blood sugars regularly check your feet on a daily basis Plan: As per [facility] Endocrinology Assessment & Plan (08/23/2023 11:45 AM EDT): Patient is here for a f/u regarding his DM. He is back under the care of Endocrinology last seen 05/10/2023 has a follow up 11/12/2023 He is on a regimen of: Repaglinide 0.5 mg TID, Metformin 1000 mg po BID, Actos 30 mg po daily , Lantus 42 units sc q pm and Jardiance 25 mg po daily. he is off Glipizide. He is ineligible for GLP1s due to Gastroparesis Hgb A1c on 08/23/2023 7.7 from 8.7 from 10.5 Glucometer today shows average 134 Poorly controlled despite 4 different medications. Last visit he was referred back to Endocrinology Eye exam last done by Dr Connor(medical typist). Microalbumin checked on: 04/19/2020 was: 1.4 Pt is not on an JOSEPHINE inhibitor/ARB due to previous concerns of cough induced by JOSEPHINE and borderline low blood pressure. Foot check risk of zero Pt reports compliance with Asa 81 mg po daily Pt advised to: adhere to diabetic diet check your blood sugars regularly check your feet on a daily basis Plan: As per [facility] Endocrinology Assessment & Plan (01/04/2023 2:30 PM EST): Patient is here for a f/u regarding his DM. He is no longer under the care of Endocrinology He is on a regimen of: Repaglinide 0.5 mg TID, Metformin 1000 mg po BID, Actos 30 mg po daily , Lantus 42 units sc q pm and Jardiance 25 mg po daily. he is off Glipizide. last seen by Endocrinology 05/05/2021. He is ineligible for GLP1s due to Gastroparesis Hgb A1c on 01/04/2023: 8.7 from 10.5 Glucometer today shows average 158 Poorly controlled despite 4 different medications. Last visit he was referred back to Endocrinology Pt was asked to schedule an appointment at [facility] Endocrinology, pt insisted that he had one at [facility] but it seems he was confused He was evaluated by our life educator and Polymerization Oven Tender Eye exam last done by Dr Connor(medical typist). Microalbumin checked on: 04/19/2020 was: 1.4 Pt is not on an JOSEPHINE inhibitor/ARB due to previous concerns of cough induced by JOSEPHINE and borderline low blood pressure. Foot check risk of zero Pt reports compliance with Asa 81 mg po daily Pt advised to: adhere to diabetic diet check your blood sugars regularly check your feet on a daily basis Plan: referred back to [facility] Endocrinology Assessment & Plan (10/10/2022 1:36 PM EDT): Patient is here for a f/u regarding his DM. He is no longer under the care of Endocrinology He is on a regimen of: Repaglinide 0.5 mg TID, Metformin 1000 mg po BID, Actos 30 mg po daily , Lantus 38 units sc q pm and Jardiance 25 mg po daily. he is off Glipizide. last seen by Endocrinology 05/05/2021. He is ineligible for GLP1s due to Gastroparesis Hgb A1c on 10/10/2022: 10.5 from a previous one of 9.5 Glucometer today shows average 176 Poorly controlled despite 4 different medications. Last visit he was referred back to Endocrinology Plan: referal to life educator and Polymerization Oven Tender as well as Lead Enterprise Architect at [facility] check BG regularly Increase Lantus to 42 units subcutaneous qhs f/u 3 months with me Eye exam was last done on: 08/24/16. by Dr. Dr Connor(medical typist). Microalbumin checked on: 04/19/2020 was: 1.4 Pt is not on an JOSEPHINE inhibitor/ARB due to previous concerns of cough induced by JOSEPHINE and borderline low blood pressure. Foot check risk of zero Pt reports compliance with Asa 81 mg po daily Pt advised to: adhere to diabetic diet check your blood sugars regularly check your feet on a daily basis Assessment & Plan (06/06/2022 1:52 PM EDT): Patient is here for a f/u regarding his DM. He is no longer under the care of Endocrinology He is on a regimen of: Repaglinide 0.5 mg TID, Metformin 1000 mg po BID, Actos 30 mg po daily , Lantus 36 units sc q pm and Jardiance 25 mg po daily. he is off Glipizide. last seen by Endocrinology 05/05/2021 Hgb A1c on 06/06/2022: 9.5 Glucometer today shows average 158 Poorly controlled despite 4 different medications Plan: Refer back to endocrinology check BG regularly f/u 3 months with me Eye exam was last done on: 08/24/16. by Dr. Dr Connor(medical typist). Microalbumin checked on: 04/19/2020 was: 1.4 Pt is not on an JOSEPHINE inhibitor/ARB due to previous concerns of cough induced by JOSEPHINE and borderline low blood pressure. Foot check risk of zero Pt reports compliance with Asa 81 mg po daily Pt advised to: adhere to diabetic diet check your blood sugars regularly check your feet on a daily basis Impingement syndrome of shoulder region 01/09/20 15 Assessment & Plan (08/23/2023 11:54 AM EDT): Under the care of Dr. Gonzales. Last seen 08/02/2023 MRI of the right shoulder done on 03/16/2016 He completed physical therapy with no good results. Pt had been taking Tramadol but reports he gets a rash from it so he stopped taking it. Pt tells me he took some left over Gabapentin he had with good results Plan: Continue Gabapentin 300mg po TID Currently not complaining Assessment & Plan (06/06/2022 1:48 PM EDT): Used to be under the care of Dr. Gonzales. MRI of the right shoulder done on 03/16/2016 He completed physical therapy with no good results. Pt had been taking Tramadol but reports he gets a rash from it so he stopped taking it. 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 under the care of Thoracic surgery at [facility]. Pt seemed convinced that this is contributing to his chronic cough and wanted to have it excised. Pt is now s/p R VATS/pericardial cyst resection by Dr Melissa Smith at [facility] thoracic on 07/10/2012 Pt was noted to be tachycardic during the post op period and started on Cardizem with good effects. For pain control he is using percocet as needed. Pt was last seen by Dr Smith on: 08/28/2012 Pt was seen again for f/u by jin Bhat at [facility] Thoracic on 11/05/13 who recommended NO further f/u needed Of note pt had a CTA chest on 07/13/2012 that showed a minimal right anterior pneumothorax, streaky opacities on his right lower lobe, atelectasis vs early pna (pt is afebrile, has no cough) and post op subcutaneous emphysema. Depressive disorder 11/07/2011 Assessment & Plan (02/07/2024 2:43 PM EST): Patient is no longer under the care of Dr Frantz Mead, see med list for current psych meds. He is seeing a psychotherapist her name is janes Nieves: [phone] Patient denies any suicidal ideation or thoughts, Patient has crisis numbers and knows to use them if needed Assessment & Plan (06/06/2022 1:48 PM EDT): Doing well under the care of Dr Frantz Mead, see med list for current psych meds. Has been seeing him via telehealth Patient denies any suicidal ideation or thoughts, Patient has crisis numbers and knows to use them if needed Encounters * This document contains information received from the source organization and may not represent a complete record from that organization. Date Type Department Care Team Description 05/21/2024 Telephone [facility] [address] [place] [address] Danis Morales MD Chart Prep 05/21/2024 Refill [facility] [address] [place], [place] [id number] Danis Morales MD Type 2 diabetes mellitus without complication, with long-term current use of insulin ([facility]) 04/16/2024 Orders Only [facility] External Provider, [facility] 04/07/2024 2:20 PM EST Office Visit [facility] [address] [place] [address] Kathy eHrnandez MD Influenza A (Primary Dx) 03/25/2024 Refill [facility] [address] [place] [address] Ino Walton, PMHNP Depressive disorder 03/23/2024 Refill [facility] [address] [place] [address] Danis Morales MD Type 2 diabetes mellitus without complication, with long-term current use of insulin ([facility]) 03/19/2024 Refill [facility] [address] [place] [address] Danis Morales MD 03/11/2024 Orders Only [facility] [address] [place] [address] Danis Morales MD Acute pain of left knee (Primary Dx) 03/06/2024 Telephone [facility] [address] [place] [address] Sharona Ballard, RN Results 02/27/2024 Refill [facility] [address] [place] [address] Danis Morales MD from Last 3 Months Immunizations Name Administration Dates Next Due INFLUENZA VACCINE QUADRIVALE NT RECOMBINANT PRESERVATIVE FREE RIV4 11/17/2019 Influenza Injectable Quadriv alant Preservative Free IIV4 MDCK 11/16/2020 Influenza injectable quadriv alent IIV4 with preservative 11/13/2017,11/17/2016,11/13/2014 Influenza injectable quadriv alent preservative free 12/05/2022,12/23/2021,03/23/2016 Influenza, High Dose Seasona l, Preservative Free 02/07/2024,11/08/2018 Influenza, IIV3, injectable 12/31/2013,0 10/26/2010,12/22/2009,02/12,10/30/2008,11/06/2006,03/13/2006 Influenza, Split (incl. edil fied surface antigen) 11/19/2012,11/07/2011 Moderna Covid-19 Vaccine 12+ 02/23/2021,05/22/19 21,04/23/2020 Pneumococcal Conjugate PCV 20 09/10/2023 Pneumococcal Polysaccharide PPSV23 05/09/2016,,05/17/2006 TD (adult), 2 Lf tetanus tox oid, preservative free, adsorbed 11/06/2006 Tdap 05/03/2017 Zoster, Recombinant 06/27/2021,04/25/2021 Social History Tobacco Use Types Packs/Day Years Used Date Smoking Tobacco: Former Cigarettes Passive Smoke Exposure: Past Smokeless Tobacco: Never Tobacco Cessation:Counseling Given: Not Answered Depression Answer Date Recorded Patient Health Questionnaire-9 [...] not to disclose 2021 10:18 AM EDT Last Filed Vital Signs Vital Sign Reading Time Taken Comments Blood Pressure 122/76 04/07/2024 1:33 PM EST Pulse 101 04/07/2024 1:33 PM EST Temperature 36.7 ??C (98 ??F) 04/07/2024 1:33 PM EST Respiratory Rate 20 04/07/2024 1:33 PM EST Oxygen Saturation 96% 04/07/2024 1:33 PM EST Inhaled Oxygen Concentration - - Weight 88.2 kg (194 lb 6.4 oz) 04/07/2024 1:33 P M EST Height 175.3 cm (5' 9 ) 04/07/2024 1:33 PM EST Body Mass Index 28.71 04/07/2024 1:33 PM EST Plan of Treatment Upcoming Encounters Date Type Department Care Team (Late st Contact Info) Description 06/10/2024 2:00 PM EDT Office Visit [facility] MEDICINE [address] [place], [place] [phone] Danis Morales MD [address] [place], [place] [phone] Health Maintenance Due Date Last Done Comments CT Colonography 1958 FIT DNA/Cologuard 1958 FIT 1958 FOBT 1960 Sigmoidoscopy 1958 Diabetes: Foot Exam 1968 Eye Exam 1968 Alcohol/Substance Use Screening 1970 RSV Patients and Patients Aged 60 years or older (1 - Risk 60-74 years 1-dose series) 2018 Depression Screening 06/07/2023 06/06/2022, 06/07/19 23 COVID-19 Vaccine ( season) 2023 02/23/2021, 05/21/2020, 04/23/2020 Diabetes: Hemoglobin A1C 05/07/2024 024, 08/23/2023, 01/04/2023, Additional history exists SDOH Screening 07/09/2024 07/10/2023 Lipid Panel 08/26/2024 08/27/2023, 0405/2022, 04/25/2021, Additional history exists Colonoscopy 12/10/2024 12/11/2019 Colorectal Cancer Screening 12/10/2024 Tobacco Screening 05/22/2025 05/22/2024 DTaP/Tdap/Td Vaccines (2 - Td or Tdap) 05/04/2027 05/03/2017, 11/06/2006 Zoster Vaccines Completed 06/27/2021, 04/25/2021 Hepatitis C Screening Completed 06/19/2022, 022 Pneumococcal Vaccine: 50+ Years Completed 09/10/2023, 05/09/2016, 01/17/2009, Additional history exists Influenza Vaccine Completed 02/07/2024, , 12/23/2021, Additional history exists HIB Vaccines Aged Out No longer eligi ble based on patient's age to complete this topic HPV Vaccines Aged Out No longer eligi ble based on patient's age to complete this topic Hepatitis A Vaccines Aged Out No long er eligible based on patient's age to complete this topic Hepatitis B Vaccines Aged Out No long er eligible based on patient's age to complete this topic IPV Vaccines Aged Out No longer eligi ble based on patient's age to complete this topic Meningococcal Vaccine Aged Out No indio mert eligible based on patient's age to complete this topic RSV under 20 months Aged Out No longe r eligible based on patient's age to complete this topic Rotavirus Vaccines Aged Out No longer eligible based on patient's age to complete this topic Procedures Procedure Name Priority Date/Time Associated Diagnosis Comments SARS COV2/INFLUENZA A/B AND RSV RNA QL NAAT Routine 04/16/2024 3:04 PM EST XR CHEST 2 VIEWS Routine 04/16/2024 2:50 PM EST POCT RAPID STREP A Routine 04/07/2024 2: 03 PM EST Influenza A POCT RAPID COVID ANTIGEN Routine 04/07/2024 2:03 PM EST Influenza A POCT INFLUENZA A (ID NOW RAPID MOLECULAR) Routine 04/07/2024 2:03 PM EST Influenza A POCT INFLUENZA B (ID NOW RAPID MOLECULAR) Routine 04/07/2024 2:03 PM EST Influenza A POCT GLYCATED HEMOGLOBIN, TOTAL Routine 02/07/2024 2:27 PM EST Type 2 diabetes mellitus with stage 3a chronic kidney disease, with long-term current use of insulin (CMS/HCC) LIPID PANEL, STANDARD Routine 08/27/2023 9:15 AM EDT Type 2 diabetes mellitus without complication, with long-term current use of insulin (CMS/HCC) HEPATITIS C AB W/REFL TO HCV RNA, QN, PCR Routine 06/19/2022 8:29 AM EDT Mixed hyperlipidemia HM COLONOSCOPY Routine 12/11/2019 from Last 3 Months or Most Recently Relevant to Health Maintenance Results * SARS-CoV-2 RNA, Influenza A/B, and RSV RNA, Ql NAAT (04/16/2024 3:04 PM EST) Influenza A PCR NEGATIVE Negative [facility] Influenza B PCR NEGATIVE Negative [facility] Resp Syncy Virus RNA Qual PCR NEGATIVE Negative [facility] SARS COV2 PCR NEGATIVE Negative [facility] Comment:All test results mus t be correlated with clinical findings.Negative results do not preclude SARS-CoV2, influenza Avirus, influenza B virus and/or RSV infectionand should not be used as the sole basis for treatment orother patient management decisions. Negative results must becombined with clinical observations, patient history, andepidemiological information.This test has not been evaluated for monitoring treatment ofinfection.This test has been authorized by the FDA under an EmergencyUse Authorization (EUA) for use by authorized laboratories.Testing performed on the [employer] GeneXpert utilizingreal-time RT-PCR.All SARS CoV2 and positive influenza A/B results arereported to ALESSANDRO RIOS. 04/16/2024 3:04 PM EST 04/16/2024 3:07 PM EST us Generic External Data Provider LAB MICROBIOLOGY - GENERAL ORDERABLES Final Result [facility] [address] [place] [phone] * XR Chest 2 Views (04/16/2024 2:50 PM EST) Anatomical Region Laterality Modality Chest Radiographic Lalitha ging 04/16/2024 2:50 PM EST Narrative 04/16/2024 3:13 PM EST ? [facility] ?[address] ?[place] [address] ?XRay Report ? Signed ? Patient: Nadia Herman,Sancho L ?MR#: [id number] ?? [id number] ? : 1960 ?Acct:[id number] ? Age/Sex: 63 / M ?ADM Date: 04/16/24 ? Loc: HO.ED ? Attending Dr: ? Ordering Physician: Yves Abdul ?? Date of Service: 04/16/24 ?? Procedure(s): XR chest 2V ?? Accession Number(s): [id number] ? cc: Danis Laurent MD; Yves Abdul ? EXAMINATION: ?? XR CHEST ? CLINICAL INFORMATION: ?? cough ? COMPARISON: ?? 11/08/23. ? TECHNIQUE: ?? 2 views of the chest were obtained. ? FINDINGS: ?? The cardiac, hilar, and mediastinal contours are normal. Prominent ?? epicardial fat pad. ? The lungs are clear bilaterally. There is no pneumothorax or pleural ?? effusion. ? There is no focal osseous or soft tissue abnormality. ? XR/XR chest 2V ?? IMPRESSION: ?? No active pulmonary disease. ? Electronically signed by: ??Doug Durán MD ??04/16/2024 03:10 PM EST RP ? Dictated By: ?Doug Durán MD ? Signed By: ?<Electronically signed by Doug Durán MD in OV> ?04/16/24 1510 ? DD/ 1450 ? TD/TT: 04/16/24 1455 ? Screen Printer: ? Procedure Note Janel, Ross - 04/16/[address] [address] XRay Report Signed Patient: Sancho Loya LMR#: [id number] : 9Acct:[id number] Age/Sex: 63 / MADM Date: 04/16/24 Loc: .ED Attending Dr: Ordering Physician: Yves Abdul Date of Service: 04/16/24 Procedure(s): XR chest 2V Accession Number(s): [id number] cc: Danis Laurent MD; Yves Abdul EXAMINATION: XR CHEST CLINICAL INFORMATION: cough COMPARISON: 11/08/23. TECHNIQUE: 2 views of the chest were obtained. FINDINGS: The cardiac, hilar, and mediastinal contours are normal. Prominent epicardial fat pad. The lungs are clear bilaterally. There is no pneumothorax or pleural effusion. There is no focal osseous or soft tissue abnormality. XR/XR chest 2V IMPRESSION: No active pulmonary disease. Electronically signed by: Doug Durán MD 04/16/2024 03:10 PM EST Dictated By: Doug Durán MD Signed By: <Electronically signed by Doug Durán MD in OV> 04/16/24 1510 DD/ 1450 TD/TT: 04/16/24 1455 Screen Printer: [facility] External Provider IMG XR PROCEDURES Final Result * Influenza B (ID NOW Rapid Molecular) (04/07/2024 2:03 PM EST) Influenza B Negative Negative, Indeterminate [facility] Swab 04/07/2024 2:03 PM EST Kathy Hernandez MD POINT OF CARE TEST ENTER /EDIT ORDERABLES Final Result [facility] [address] [place] [phone] * (ABNORMAL) Influenza A (ID NOW Rapid Molecular) (04/07/2024 2:03 PM EST) [facility] Influenza A Positive( A) Negative, Indeterminate [facility] Swab 04/07/2024 2:03 PM EST Result [facility] Kathy Hernandez MD POINT OF CARE TEST ENTER /EDIT ORDERABLES Final Result [facility] [address] [place] [phone] * POCT Rapid COVID Ag (04/07/2024 2:03 PM EST) [facility] Rapid COVID Ag Negative Swab 04/07/2024 2:03 PM EST Result [facility] Kathy Hernandez MD POINT OF CARE TEST ENTER /EDIT ORDERABLES Final Result * POCT rapid strep A manually resulted (04/07/2024 2:03 PM EST) [facility] Rapid Strep A Screen Negative Negative, None Detected Swab 04/07/2024 2:03 PM EST Result [facility] Kathy Hernandez MD POINT OF CARE TEST ENTER /EDIT ORDERABLES Final Result * (ABNORMAL) POCT HGB A1C (02/07/2024 2:27 PM EST) [facility] Hemoglobin A1C 7.0(A) 4.0 - 6.0 % QC Media Lot # [id number] Lot# Expiration Date [id number] Blood 02/07/2024 2:27 PM EST Result [facility] Danis Solomon MD POINT OF CARE TEST EN TER/EDIT ORDERABLES Final Result * (ABNORMAL) Lipid Panel, Standard (08/27/2023 9:15 AM EDT) [facility] Triglycerides 112 <150 mg/dL [facility] Comment:Desirable Triglyceri de: less than 150 mg/dLBorderline High Triglyceride 150-199 mg/dLHigh Triglyceride: 200-499 mg/dLVery High Triglyceride: greater than or equal to 5OO mg/dL Cholesterol 111 <200 mg/dL [facility] Comment:Desirable Cholestero l: less than 200 mg/dLBorderline High Cholesterol: 200-239 mg/dLHigh Cholesterol: greater than 239 mg/dL LDL Cholesterol Calculated 51 <100 mg/dL [facility] Comment:Desirable LDL: less than 100 mg/dLNear Optimal/Above Optimal LDL: 110- 129 mg/dLBorderline High LDL: 130-159 mg/dLHigh LDL: 160-189 mg/dLVery High LDL: greater than or equal to 190 mg/dL HDL Cholesterol 38(L) >40 mg/dL [facility] Comment:Desirable HDL: great er than 40 mg/dL Note: This HDL assay may give artificially low results in patients with liver disease. Blood Venous blood specimen / Unknown 08/27/2023 9:15 AM EDT 08/27/2023 11:39 AM EDT us Danis Solomon MD LAB BLOOD ORDERABLES Final Result [facility] [address] [place] [phone] * Hepatitis C Antibody with Reflex to HCV, RNA, Quantitative, Real-Time PCR (06/19/2022 8:29 AM EDT) Hepatitis C Antibody NON-REACT JIMY NON-REACT JIMY [employer] [facility] Index 0.10 <1.00 [facility] Comment: HCV antibody was non-reactive. There is no laboratory evidence of HCV infection. In most cases, no further action is required. However, if recent HCV exposure is suspected, a test for HCV RNA (test code 61614) is suggested. For additional information please refer to http://education.[employer]/faq/CIV61e2 (This link is being provided for informational/ educational purposes only.) Blood Venous blood specimen / Unknown 06/19/2022 8:29 AM EDT 06/19/2022 8:29 AM EDT Kira COSTELLO - 06/19/2022 10:33 PM EDT FASTING:YES FASTING: YES us Danis Solomon MD LAB BLOOD ORDERABLES Final Result [facility] [address], [place] [phone] [employer] [facility] [address] [place] [phone] * Colonoscopy (12/11/2019) Colonoscopy Normal Normal 12/11/2019 Jessica Montana - 12/11/2019 10:39 AM EDT Recommended 5 year follow up due to history of tubular adenoma ( see scanned report )[facility] Historical Provider HEALTH MAINTENANCE Final Result from Last 3 Months or Most Recently Relevant to Health Maintenance Insurance [facility] Care Teams Director Of Cardiology Service Line Relationship Specialty Start Date End Date Danis Morales MD [address] [place] [phone] PCP - General Internal Medicine 11/24/13
--- OUTSIDE RECORDS SUMMARY | 2024-05-26 14:40 | XMS_ITS | Encounter Summary ---
Author Organization [employer] Address [address] [facility] 7t [place] [address] Care Team Providers Care Field Clinical Engineer Name Role Phone Danis Morales MD Primary Care Provide r Encounter Details Date Type Department Care Team (Late st Contact Info) Description 09/25/2022 Orders Only [facility] MED & PEDS [address] [place], [place] [phone] Pat Goldberg LPN Social History Tobacco Use [...] Description 06/10/2024 2:00 PM EDT Office Visit [facility] MEDICINE [address] [place], [place] [phone] Danis Morales MD [address] [place], [place] [phone] documented as of this encounter Visit Diagnoses Not on filedocumented in this encounter Additional Health Concerns Assessment Noted Time PHQ-9 Depression Total Score: 4 06/07/19 23 1:43 PM EDT documented as of this encounter Care Teams Field Clinical Engineer Relationship Specialty Start Date End Date Danis Morales MD [address] [place] [phone] PCP - General Internal Medicine 11/24/13 documented as of this encounter
--- OUTSIDE RECORDS SUMMARY | 2024-05-26 14:40 | XMS_ITS | Encounter Summary ---
Author Organization [employer] Address [address] [facility] 7t [place] [address] Care Team Providers Care Crop Supervisor Name Role Phone Danis Morales MD Primary Care Provide r Encounter Details Date Type Department Care Team (Late st Contact Info) Description 05/30/2022 Orders Only [facility] CHC MED & PEDS [address] [place], [place] [phone] Pat Goldberg LPN Social History Tobacco Use [...] Description 06/10/2024 2:00 PM EDT Office Visit [facility] MEDICINE [address] [place] [address] Danis Morales MD [address] [place] [phone] documented as of this encounter Visit Diagnoses Not on filedocumented in this encounter Care Teams Crop Supervisor Relationship Specialty Start Date End Date Danis Morales MD [address] [place] [phone] PCP - General Internal Medicine 9/29/14 documented as of this encounter
--- OUTSIDE RECORDS SUMMARY | 2024-05-26 14:40 | XMS_ITS | Encounter Summary ---
Author Organization [employer] Address [address] [facility] [address] 7[address] [place] [address] Care Team Providers Care Housing Property Manager Name Role Phone Danis Morales MD Primary Care Provide r Encounter Details Date Type Department Care Team (Late st Contact Info) Description 12/25/2022 Orders Only [facility] CHC MED & PEDS [address] [place], [place] [phone] Pat Goldberg LPN Social History Tobacco Use Types Packs/Day Years Used Date Smoking Tobacco: Former Cigarettes Passive Smoke Exposure: Past Smokeless Tobacco: Never Depression Answer Date Recorded Patient Health Questionnaire-9 Score 4 06/06/2022 Housing Stability Answer Date Recorded What is your housing situation today? I have kayleigh hutton 12/11/[address] you li ve. Do you have problems with any of the following? None of the above 12/11/2022 Food Insecurity Answer Date Recorded Within the past 12 months, y ou worried that your food would run out before you got money to buy more: Never True 12/11/2022 Within the past 12 months,th e food you bought just didn't last and you didn't have enough money to get more: Never True Transportation Answer Date Recorded In the past 12 months, has l ack of transportation kept you from medical appts, meetings, work or from getting things needed for daily living? No 12/11/2022 Utilities Answer Date Recorded In the past 12 months, has t he electric, gas, oil or water company threatened to shut off services in your home? No 12/11/2022 Depression Answer Date Recorded Patient Health Questionnaire-2 [...] Description 06/10/2024 2:00 PM EDT Office Visit [facility] MEDICINE [address] [place] [address] Danis Morales MD [address] [place] [address] documented as of this encounter Visit Diagnoses Not on filedocumented in this encounter Additional Health Concerns Assessment Noted Time PHQ-9 Depression Total Score: 4 06/07/19 23 1:43 PM EDT documented as of this encounter Care Teams Housing Property Manager Relationship Specialty Start Date End Date Danis Morales MD [address] [place] [phone] PCP - General Internal Medicine 11/24/13 documented as of this encounter
--- OUTSIDE RECORDS SUMMARY | 2024-05-26 14:40 | XMS_ITS | Encounter Summary ---
Author Organization [employer] Address [address] [facility] 7t [place] [address] Care Team Providers Care Software Validation Engineer Name Role Phone Danis Morales MD Primary Care Provide r Reason for Visit * Reason Onset Date Comments Results 11/24/2022 Encounter Details Date Type Department Care Team ([facility] st Contact Info) Description 11/24/2022 Telephone [facility] MEDICINE [address] [place] [address] Danis Morales MD [address] [place], [place] [phone] Results Social History Tobacco Use Types Packs/Day Years [...] encounter Miscellaneous Notes * Telephone Encounter - Gus Chambers RN - 11/28/2022 3:13 PM EDT T/C to pt. Through In[employer] Edge id - [id number] for below message, pt. Verbally agreed and understood. Pt. Also schedule for follow up apt. On 01/04/2023 with PCP. * Telephone Encounter - Lydia Dumont - 11/24/2022 1:19 PM EDT Tc from pt requesting results of labs done 11/23. Please contact pt at [phone] (Montenegrin) documented in this encounter Plan of Treatment Upcoming Encounters Date Type Department Care Team (Late st Contact Info) Description 06/10/2024 2:00 PM EDT Office Visit [facility] MEDICINE [address] [place] [address] Danis Morales MD [address] [place] [phone] documented as of this encounter Visit Diagnoses Not on filedocumented in this encounter Additional Health Concerns Assessment Noted Time PHQ-9 Depression Total Score: 4 06/07/19 23 1:43 PM EDT documented as of this encounter Care Teams Software Validation Engineer Relationship Specialty Start Date End Date Danis Morales MD [address] [place] [phone] PCP - General Internal Medicine 11/24/13 documented as of this encounter
== END 2024-05-26 13:51 | disposition home or self-care (01) ==
LOC: HO.HOS 13:03
PROVIDERS: PCP Internal Medicine; Visit Provider Orthopaedic Surgery
DX: M17.12 Unilateral primary osteoarthritis, left knee (principal); E11.65 Type 2 diabetes mellitus with hyperglycemia; Z79.4 Long term (current) use of insulin
CPT/HCPCS: 20610; 99214

== ENCOUNTER → 2024-05-26 13:02 | Outpatient (BNVA) | payer OTHER, SELFPAY | PROVIDERS: PCP Internal Medicine; Visit Provider Orthopaedic Surgery | DX: M17.12 Unilateral primary osteoarthritis, left knee (principal); E11.65 Type 2 diabetes mellitus with hyperglycemia; Z79.4 Long term (current) use of insulin | CPT/HCPCS: 20610; 99212; J0665; J1100; J2003 ==

== ENCOUNTER 2024-05-30 13:51 | Outpatient (AMB) | payer OTHER, SELFPAY ==
[2024-05-30 13:53] VITALS: BP 124/71; PULSE 91; BMI 29.0
--- NOTE | 2024-05-30 13:53 | A.OFFVIS_ITS ---
Vital Signs 05/30/24 13:53 Height 5 ft 9 in Weight 196 lb 10.437 oz BMI 29.0 BP 124/71 Blood Pressure Location Rt brachial Position Sitting Pulse 91 Intake Visit Reasons: 6 month follow up Intake Note: Patient in office today in 6 months follow up of abdominal pain. CC: Patient reports doing well and denies having any GI symptoms. 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 Accompanied by: Self / Same As Patient Allergies No Known Allergies Allergy (Verified 05/30/24 13:56) HPI HPI 6 month follow up: Details: Assessment & Plan (1) GERD (gastroesophageal reflux disease): Code(s): K21.9 - Gastro-esophageal reflux disease without esophagitis Category: Medical Qualifiers: Esophagitis presence: without esophagitis Qualified Code(s): K21.9 - Gastro-esophageal reflux disease without esophagitis (2) Gastroparesis: Code(s): K31.84 - Gastroparesis Category: Medical (3) Abdominal bloating: Code(s): R14.0 - Abdominal distension (gaseous) Category: Medical (4) Irritable bowel syndrome with constipation: Code(s): K58.1 - Irritable bowel syndrome with constipation Category: Medical (5) Fatigue: Code(s): R53.83 - Other fatigue Category: Medical Plan [place] #Edward Live He continues on his pantoprazole in the morning and famotidine at night, reglan 10 mg 3 times a day, his senna, simethicone. These are all controlling his GI symptoms well. He says that he has been experiencing fatigue for the past 3 mos. I will get labs including TSH since in August it was creeping up to the high/normal level. He denies any new medications or any trouble with sleep that could explain his symptoms easily. He is not feeling depressed. Return office visit in 6 months and I will call him if there is any unusual findings in his blood work. He will be due next year for repeat screening colonoscopy. Orders: Orders Comprehensive Met. Panel Today R53.83 - Other fatigue Complete Blood Count Auto Diff Today R53.83 - Other fatigue TSH reflex Free T4 Today R53.83 - Other fatigue Medications: Refilled famotidine 40 mg PO BEDTIME 90 tabs 1RF K21.9 - Gastro-esophageal reflux disease without esophagitis pantoprazole 40 mg PO QAM 30 tabs 6RF sennosides (senna) 17.2 mg (2 x 8.6 mg) PO BEDTIME 60 tabs 6RF for constipation simethicone 180 mg PO QID PRN 90 caps 6RF for gas K21.9 - Gastro-esophageal reflux disease without esophagitis, K58.1 - Irritable bowel syndrome with constipation, R14.0 - Abdominal distension (gaseous) metoclopramide HCl 10 mg PO TID 90 tabs 6RF LABS: Laboratory Tests 11/30/23 02/11/24 14:43 14:45 WBC 9.6 Hgb 14.9 Hct 46.4 Plt Count 237 Estimated GFR 59 Total Bilirubin 0.2 AST 17 ALT 17 Alkaline Phosphatase 53 TSH 1.92 CORRESPONDENCE On 12/28/23 @ 09:24 Yarely Trotter Wrote To Soni Patient scheduled with Nephrology on 02/01/24. On 12/27/23 @ 00:00 System Wrote To Yarely Trotter Reminder sent to recipient On 12/20/23 @ 14:55 Yarely Trotter Wrote To Yarely Trotter Appt request also sent to nephrology. Reminder set to follow up on referral in a week. TODAY'S VISIT [place] #kayleen LIVE He continues on his pantoprazole in the morning and famotidine at night, reglan 10 mg 3 times a day, his senna, simethicone. He continues to do well. We review the labs and there were no abnormalities to explain his fatigue. He says he IS feeling better now. ROV 6 mos. [facility] Medical History Asthma-COPD overlap syndrome HTN (hypertension) Dysphagia Cough Bronchitis Pneumonia Acute bronchospasm Acute bronchitis with asthma with acute exacerbation New abnormality on chest x-ray Depression Diabetes Chronic GERD Anxiety Hyperlipidemia Asthma Surgical History Status post rotator cuff surgery Hx of toe surgery Hx of repair of rotator cuff Hx of hernia repair Hx of colonoscopy Hx of esophagogastroduodenoscopy Family History Father No problems noted. Mother Hx of breast cancer Sister Diabetes Maternal Aunt Heart problem Social History Household Members: Spouse Housing: Apartment Alcohol intake: unknown Patient Tobacco Use Status: Former Tobacco user Years Smoked: 20 yrs ( quit 8 years ago) Second Hand Smoke Exposure: Yes service: No Current occupational status: retired Review of Systems Const Denies fatigue, Denies fever(s), Denies night sweats, Denies poor appetite and Denies weight loss Eyes Reports requires corrective lenses ENT Reports Normal hearing present, Denies dental pain, Denies dysphagia, Denies hearing loss, Denies mouth pain, Denies odynophagia, Denies throat swelling, Denies tongue swelling and Reports other (Dentition adequate) Resp Reports cough GI Details: Denies abdominal pain, Denies melena, Denies bloating, Denies hematochezia, Denies constipation, Denies GI cramping, Denies dysphagia, Denies excessive flatus, Denies early satiety, Denies heartburn, Denies diarrhea, Denies nausea, Denies odynophagia, Denies vomiting and Denies hematemesis Skin/Breast Denies pruritus, Denies lesions, Denies rash and Denies jaundice Neuro Reports Normal hearing present and Denies Abnormal speech present Endo Denies fatigue Aller/Immun Denies throat swelling and Denies tongue swelling Physical Exam Vital Signs: Last Vital Signs Pulse 91 05/30/24 13:53 BP 124/71 05/30/24 13:53 BMI result Body Mass Index 29.0 Const General: cooperative, no acute distress, well developed and well groomed Nutritional Appearance: well nourished, obese and overweight Orientation/consciousness: oriented to person, oriented to place and oriented to time Limitations: No language barrier, ambulation with cane, ambulation with walker and wheelchair HEENT Head: Yes normocephalic and Yes atraumatic Eyes General: appearance normal, both eyes and all related structures Pupils: Equal, round and reactive pupils present Neck Neck: Yes normal visual inspection and Yes no lymphadenopathy Thyroid: Thyroid normal Resp Effort & Inspection: normal respiratory effort and able to speak in complete sentences Auscultation: clear to auscultation bilaterally Cardio Rate: regular rate Rhythm: regular rhythm Heart sounds: Normal, physiologic split S2 sound present Peripheral pulses: radial pulses present and posterior tibial pulses present GI Inspection: No distended and No Abdominal panniculus present Palpation (GI): Soft to palpation, nontender, no guarding, not rigid, No hepatosplenomegaly present and Hepatosplenomegaly present Percussion: Yes normal to percussion Auscultation: normal bowel sounds Rectal Exam - Male: Yes deferred Skin General skin exam: no rashes or lesions noted, turgor normal, skin not dry, no jaundice, No spider nevi and no striae Rashes: no rashes Nails: normal Neuro General: oriented to person, oriented to place and oriented to time Cranial nerves: Yes Equal, round and reactive pupils present and Yes Normal hearing present Speech: No Abnormal speech present Extrem General: Yes normal to inspection, No clubbing, No cyanosis and No edema Psych Thought process: Normal thought process present and not confabulating Thought content: Normal thought content present Insight: Good insight present (Psych) Judgement: Good judgement present (Psych) Results Reviewed Results Reviewed: Laboratory Tests 11/30/23 02/11/24 14:43 14:45 WBC 9.6 Hgb 14.9 Hct 46.4 Plt Count 237 Estimated GFR 59 Total Bilirubin 0.2 AST 17 ALT 17 Alkaline Phosphatase 53 TSH 1.92 Assessment & Plan Assessment & Plan (1) Gastroparesis: Code(s): K31.84 - Gastroparesis Category: Medical (2) GERD (gastroesophageal reflux disease): Code(s): K21.9 - Gastro-esophageal reflux disease without esophagitis Category: Medical Qualifiers: Esophagitis presence: without esophagitis Qualified Code(s): K21.9 - Gastro-esophageal reflux disease without esophagitis (3) Abdominal bloating: Code(s): R14.0 - Abdominal distension (gaseous) Category: Medical (4) Irritable bowel syndrome with constipation: Code(s): K58.1 - Irritable bowel syndrome with constipation Category: Medical (5) Tubular adenoma of colon: Comment: 2019 scope TA removed repeat 5 years Code(s): D12.6 - Benign neoplasm of colon, unspecified Category: Medical Plan [place] #kayleen LIVE He continues on his pantoprazole in the morning and famotidine at night, reglan 10 mg 3 times a day, his senna, simethicone. He continues to do well. We review the labs and there were no abnormalities to explain his fatigue. He says he IS feeling better now. ROV 6 mos. Medications: Refilled pantoprazole 40 mg PO QAM 30 tabs 6RF sennosides (senna) 17.2 mg (2 x 8.6 mg) PO BEDTIME 60 tabs 6RF for constipation famotidine 40 mg PO BEDTIME 90 tabs 1RF K21.9 - Gastro-esophageal reflux disease without esophagitis metoclopramide HCl 10 mg PO TID 90 tabs 6RF simethicone 180 mg PO QID PRN 90 caps 6RF for gas K21.9 - Gastro-esophageal reflux disease without esophagitis, K58.1 - Irritable bowel syndrome with constipation, R14.0 - Abdominal distension (gaseous) Coding Level of Care Code Est Pt Level 3 (76162) Diagnoses Gastroparesis K31.84 Gastroesophageal reflux disease without esophagitis K21.9 Esophagitis presence: without esophagitis Abdominal bloating R14.0 Irritable bowel syndrome with constipation K58.1 Tubular adenoma of colon D12.6
--- OUTSIDE RECORDS SUMMARY | 2024-05-30 15:38 | XMS_ITS | Encounter Summary ---
Author Organization [employer] Address [address] [facility] 7t [place] [address] Care Team Providers Care Technical Internship Name Role Phone Danis Morales MD Primary Care Provide r Reason for Visit * Reason Comments Pre-visit Planning SDOH Screening posit yee and Tobacco screening negative Encounter Details Date Type Department Care Team ([facility] st Contact Info) Description 05/27/2024 Patient Outreach [facility] [address] [place] [address] Danis Morales MD [address] [place], [place] [phone] Pre-visit Planning (SDOH Screening positive and Tobacco screening negative) Social History Tobacco Use Types Packs/Day Years [...] before you got money to buy more: Sometimes True 2024 Within the past 12 months,th e food you bought just didn't last and you didn't have enough money to get more: Sometimes True 05/27/2024 Transportation Answer Date Recorded In the past [...] Recorded Patient Health Questionnaire-2 Score 0 06/06/2022 Internet Access Answer Date Recorded Internet Access Q1 No 05/27/2024 Internet Access Q2 I do not want or need it 02/2024 Sex and Gender Information Value Date Recorded Sex Assigned at Male 12/26/2021 10:18 AM EDT Legal Sex Male 10:18 AM EDT Gender Identity Male 12/26/2021 10:18 AM EDT Sexual Orientation Choose not to disclose 2021 10:18 AM EDT documented as of this encounter Progress Notes * Emeli Potter - 05/27/2024 10:20 AM EDT DORI Rendon placed successful outbound call to patient for pre-visit planning. Patient name and confirmed. Patient confirms appt date and time, and has transportation arrangements. Biggest concern for appointment at this time is has concerns but will discuss it with PCP in person. Patient advised to bring to appointment a photo id and insurance card. Appropriate screenings completed in anticipation of appointment. SDOH positive. Patient looking for assistance with Food insecurities: Sometimes. Referral will be placed. documented in this encounter Plan of Treatment Upcoming Encounters Date Type Department Care Team (Late st Contact Info) Description 06/10/2024 2:00 PM EDT Office Visit [facility] [address] [place] [address] Danis Morales MD [address] [place] [address] documented as of this encounter Visit Diagnoses Not on filedocumented in this encounter Additional Health Concerns Assessment Noted Time PHQ-9 Depression Total Score: 4 06/07/19 23 1:43 PM EDT documented as of this encounter Care Teams Technical Internship Relationship Specialty Start Date End Date Danis Morales MD [address] [place] [address] PCP - General Internal Medicine 11/24/13 documented as of this encounter
--- OUTSIDE RECORDS SUMMARY | 2024-05-30 15:38 | XMS_ITS | Encounter Summary ---
Author Organization [employer] Address [address] [facility] [address] [place] [address] Care Team Providers Care Harbor Engineer Name Role Phone Danis Morales MD Primary Care Provide r Encounter Details Date Type Department Care Team (Late st Contact Info) Description 05/27/2024 Patient Outreach [facility] [address] [place] [address] Roberto Benitez Social History Tobacco Use Types Packs/Day Years [...] 06/10/2024 2:00 PM EDT Office Visit [facility] [address] [place] [address] Danis Morales MD [address] [place] [address] documented as of this encounter Visit Diagnoses Not on filedocumented in this encounter Additional Health Concerns Assessment Noted Time PHQ-9 Depression Total Score: 4 06/07/19 23 1:43 PM EDT documented as of this encounter Care Teams Harbor Engineer Relationship Specialty Start Date End Date Danis Morales MD [address] [place] [address] PCP - General Internal Medicine 11/24/13 documented as of this encounter
--- OUTSIDE RECORDS SUMMARY | 2024-05-30 15:38 | XMS_ITS | Encounter Summary ---
Author Organization [employer] Address [address] [facility] [address] [place] [address] Care Team Providers Care Marketing Support Manager Name Role Phone Danis Morales MD Primary Care Provide r Encounter Details Date Type Department Care Team (Late st Contact Info) Description 09/25/2022 Orders Only [facility] [address] [place], [place] [phone] Pat Goldberg LPN Social History Tobacco Use [...] Description 06/10/2024 2:00 PM EDT Office Visit [facility] [address] [place], [place] [phone] Danis Morales MD [address] [place], [place] [phone] documented as of this encounter Visit Diagnoses Not on filedocumented in this encounter Additional Health Concerns Assessment Noted Time PHQ-9 Depression Total Score: 4 06/07/19 23 1:43 PM EDT documented as of this encounter Care Teams Marketing Support Manager Relationship Specialty Start Date End Date Danis Morales MD [address] [place] [phone] PCP - General Internal Medicine 11/24/13 documented as of this encounter
--- OUTSIDE RECORDS SUMMARY | 2024-05-30 15:38 | XMS_ITS | Encounter Summary ---
Author Organization [employer] Address [address] [facility] [address] [place] [address] Care Team Providers Care Watch Parts Inspector Name Role Phone Danis Morales MD Primary Care Provide r Reason for Visit * Reason Onset Date Comments Letter for School/Work 11/24/2022 Encounter Details Date Type Department Care Team ([facility] st Contact Info) Description 11/24/2022 Telephone [facility] [address] [place] [address] Danis Morales MD [address] [place] [address] Letter for School/Work Social History Tobacco Use [...] a 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 stating 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 due to asthma, diabetes, 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 For clarification, contact pt at [phone] documented in this encounter Plan of Treatment Upcoming Encounters Date Type Department Care Team (Late st Contact Info) Description 06/10/2024 2:00 PM EDT Office Visit [facility] [address] [place] [address] Danis Morales MD [address] [place], [place] [phone] documented as of this encounter Visit Diagnoses Not on filedocumented in this encounter Additional Health Concerns Assessment Noted Time PHQ-9 Depression Total Score: 4 06/07/19 23 1:43 PM EDT documented as of this encounter Care Teams Watch Parts Inspector Relationship Specialty Start Date End Date Danis Morales MD [address] [place], [place] [phone] PCP - General Internal Medicine 11/24/13 documented as of this encounter
--- OUTSIDE RECORDS SUMMARY | 2024-05-30 15:38 | XMS_ITS | Encounter Summary ---
Author Organization [employer] [facility] Address [address] [facility] [address]t [place] [address] Care Team Providers Care Cloth Doffer Name Role Phone Danis Morales MD Primary Care Provide r Encounter Details Date Type Department Care Team (Late st Contact Info) Description 02/16/2022 Orders Only [facility] [address] [place] [address] Ailin Kumar LPN Social History Tobacco Use [...] Office Visit [facility] [address] [place] [address] Danis Morales MD [address] [place] [address] documented as of this encounter Visit Diagnoses Not on filedocumented in this encounter Care Teams Cloth Doffer Relationship Specialty Start Date End Date Danis Morales MD [address] [place] [address] PCP - General Internal Medicine 11/24/13 documented as of this encounter
--- OUTSIDE RECORDS SUMMARY | 2024-05-30 15:38 | XMS_ITS | Encounter Summary ---
Author Organization [facility] Address [address] [facility] [address] [place] [address] Care Team Providers Care Outside Cutter Hand Name Role Phone Danis Morales MD Primary Care Provide r Encounter Details Date Type Department Care Team (Late Contact Info) Description 04/10/2022 Orders Only [facility] [address] [place] [phone] Ailin Kumar LPN Social History Tobacco Use [...] Description 06/10/2024 2:00 PM EDT Office Visit [facility] [address] [place] [phone] Danis Morales MD [address] [place] [phone] documented as of this encounter Visit Diagnoses Not on filedocumented in this encounter Care Teams Outside Cutter Hand Relationship Specialty Start Date End Date Danis Morales MD [address] [place] [address] PCP - General Internal Medicine 11/24/13 documented as of this encounter
--- OUTSIDE RECORDS SUMMARY | 2024-05-30 15:38 | XMS_ITS | Clinical Summary ---
Author Organization [employer] Address [address] [facility] 7t [place] [address] Care Team Providers Care Studio Receptionist Name Role Phone Danis Morales MD Primary [...] record from that organization. [employer]Care Short Pen [place] 31G X 8 MM miscIndication s:Type 2 diabetes mellitus without complication, unspecified whether snf insulin use ([facility]) USE EVERY EVENING 100 each 3 023 Active Alcohol Swabs (Alcohol Prep) 70 % pads USE FOUR TIMES DAILY 100 each 11 024 Active montelukast (Singulair) 10 MG tablet TAKE 1 TABLET BY MOUTH EVERY EVENING 30 tablet 6 024 Active Continuous Glucose Boat Wrapper (FreeStyle Briana 2 [place]) deviceIndicati ons:Type 2 diabetes mellitus without complication, with long-term current use of insulin ([facility]) Scan sensor every 8 hours 1 each 3 024 Active Continuous Glucose Sensor (FreeStyle Briana 2 Sensor) miscIndication s:Type 2 diabetes mellitus without complication, with long-term current use of insulin ([facility]) Apply 1 sensor every 14 days [...] tablet 3 024 Active TechLite Plus Pen [place] 32G X 4 MM misc USE ONCE [...] complication, with long-term current use of insulin ([facility]) TAKE 1 TABLET BY MOUTH THREE TIMES DAILY 90 tablet 6 Active insulin glargine (Lantus SoloStar) 100 UNIT/ML penIndications :Type 2 diabetes mellitus without complication, with long-term current use of insulin ([facility]) INJECT 42 UNITS SUBCUTANEOUSLY AT BEDTIME [...] complication, with long-term current use of insulin ([facility]) INJECT 42 SUBCUTANEOUSLY AT BEDTIME 15 [...] me he was getting Lunesta from dr. Mead Plan: Refill Lunesta 1 mg po at bedtime (he was taking 3mg in the past but has not taken it for > 2 years) Atypical chest pain 08/23/2023 Assessment & Plan (08/23/2023 11:56 AM EDT): Evaluated by Finger Grip Machine Operator Dr Ocampo Stress testing 06/2023 Negative for [...] were wnl. Pt currently following with GI. [facility] 06/06/2022 Assessment & Plan (02/07/2024 [...] work up. He was seen by a vocational services specialist (Dr Patel) last seen 04/13/2015 he repeated his PFTs that were almost normal so he recommended to DC Advair and Spiriva and keep him on Albuterol prn only Of note pt has had PFT'S and a Methacholine challenge at [facility] [place]. Pt is on Advair HFA 250/50, Singulair and Albuterol He is now under the care of Dr Pa Watson, last seen 09/10/2023 Assessment & Plan (08/23/2023 11:46 AM EDT): Doing well, no recent exacerbation Pt has a Hx of a chronic cough for which he had an extensive pulmonary work up. He was seen by a vocational services specialist (Dr Patel) last seen 04/13/2015 he repeated his PFTs that were almost normal so he recommended to DC Advair and Spiriva and keep him on Albuterol prn only Of note pt has had PFT'S and a Methacholine challenge at [facility] [place] was [place]. Pt is on Advair HFA 250/50 and Albuterol He is now under the care of Dr Pa Watson, last seen 02/2023 Assessment & Plan (06/06/2022 1:47 PM EDT): Doing well, no recent exacerbation Pt has a Hx of a chronic cough for which he had an extensive pulmonary work up. He was seen by a vocational services specialist (Dr Patel) last seen 04/13/2015 he repeated his PFTs that were almost normal so he recommended to DC Advair and Spiriva and keep him on Albuterol prn only Of note pt has had PFT'S and a Methacholine challenge at [facility] [place] was [place]. Pt is on Advair [...] medications. Eye exam last done by Dr Connor(agricultural produce packer). Microalbumin checked on: 06/20/2023 was: 0.4 Pt [...] medications. Eye exam last done by Dr Connor(agricultural produce packer). Microalbumin checked on: 04/19/2020 was: 1.4 Pt is not on an JOSEPHINE inhibitor/ARB due to previous concerns of cough induced by JOSEPHINE and borderline low blood pressure. Foot check risk of zero Pt reports compliance with Asa 81 mg po daily Pt advised to: adhere to diabetic diet check your blood sugars regularly check your feet on a daily basis Plan: As per [facility] Assessment & Plan (08/23/2023 11:45 AM [...] Endocrinology Eye exam last done by Dr Connor(agricultural produce packer). Microalbumin checked on: 04/19/2020 was: 1.4 Pt is not on an JOSEPHINE inhibitor/ARB due to previous concerns of cough induced by JOSEPHINE and borderline low blood pressure. Foot check risk of zero Pt reports compliance with Asa 81 mg po daily Pt advised to: adhere to diabetic diet check your blood sugars regularly check your feet on a daily basis Plan: As per [facility] Assessment & Plan (01/04/2023 2:30 PM [...] was asked to schedule an appointment at [facility] Endocr[facility]ology, pt insisted that he had one at [facility] but it seems he was confused He was evaluated by our art educator and Political Aide Eye exam last done by Dr Connor(agricultural produce packer). Microalbumin checked on: 04/19/2020 was: 1.4 Pt [...] a daily basis Plan: referred back to [facility] Assessment & Plan (10/10/2022 1:36 PM [...] referred back to Endocrinology Plan: referal to art educator and Political Aide as well as Sales Planning Analyst at [facility] check BG regularly Increase Lantus to 42 units subcutaneous qhs f/u 3 months with me Eye exam was last done on: 08/24/16. by Dr. Dr Connor(agricultural produce packer). Microalbumin checked on: 04/19/2020 was: 1.4 Pt [...] last done on: 08/24/16. by Dr. Dr Connor(agricultural produce packer). Microalbumin checked on: 04/19/2020 was: 1.4 Pt [...] under the care of Thoracic surgery at [facility]. Pt seemed convinced that this is contributing to his chronic cough and wanted to have it excised. Pt is now s/p R VATS/pericardial cyst resection by Dr Melissa Smith at [facility] [place] on 07/10/2012 Pt was noted to be tachycardic during the post op period and started on Cardizem with good effects. For pain control he is using percocet as needed. Pt was last seen by Dr Smith on: 08/28/2012 Pt was seen again for f/u by jin Bhat at [facility] Thoracic on 11/05/13 who recommended NO further [...] a psychotherapist her name is janes Nieves: [phone] Patient denies any suicidal ideation or thoughts, [...] organization. Date Type Department Care Team Description 05/27/2024 Patient Outreach [facility] [address] [place] [address] Roberto Benitez 05/27/2024 Patient Outreach [facility] [address] [place] [address] Danis Morales MD Care Coordination (CHW outreach for SDOH food needs-referral completed /) 05/27/2024 Patient Outreach [facility] [address] [place] [address] Danis Morales MD Pre-visit Planning (SDOH Screening positive and Tobacco screening negative) 05/21/2024 Telephone [facility] [address] [place] [address] Danis Morales MD Chart Prep 05/21/2024 Refill [facility] [address] [place], [place] [phone] Danis Morales MD Type 2 diabetes mellitus without complication, with long-term current use of insulin ([facility]) 04/16/2024 Orders Only [facility] External Provider, [facility] 04/07/2024 2:20 PM EST Office Visit [facility] [address] [place] [address] Kathy Hernandez MD Influenza A (Primary Dx) 03/25/2024 Refill [facility] [address] [place] [address] Ino Walton, PMHNP Depressive disorder 03/23/2024 Refill [facility] [address] [place] [address] Danis Morales MD Type 2 diabetes mellitus without complication, with long-term current use of insulin ([facility]) 03/19/2024 Refill [facility] [address] [place] [address] Danis Morales MD 03/11/2024 Orders Only [facility] [address] [place] [address] [phone] Danis Morales MD Acute pain of left knee (Primary Dx) 03/06/2024 Telephone [facility] [address] [place] [phone] Sharona Ballard, RN Results from Last 3 Months Immunizations Name Administration [...] the past 12 months, has t he [employer], [employer], oil or water [employer] threatened to shut off services in your [...] Description 06/10/2024 2:00 PM EDT Office Visit [facility] [address] [place] [address] Danis Morales MD [address] [place] [address] Health Maintenance Due Date Last Done Comments [...] 05/07/2024 024, 08/23/2023, 01/04/2023, Additional history exists Lipid Panel 08/26/2024 08/27/2023, 05/28, 04/25/2021, Additional history exists Colonoscopy 12/10/2024 12/11/2019 Colorectal Cancer Screening 12/10/2024 Tobacco Screening 05/22/2025 05/22/2024 SDOH Screening 05/27/2025 05/27/2024 DTaP/Tdap/Td Vaccines (2 - Td or Tdap) [...] PM EST) Influenza A PCR NEGATIVE Negative [facility] Influenza B PCR NEGATIVE Negative [facility] Resp Syncy Virus RNA Qual PCR NEGATIVE Negative [facility] SARS COV2 PCR NEGATIVE Negative [facility] Comment:All test results mus t [...] use by authorized laboratories.Testing performed on the P21 GeneXpert utilizingreal-time RT-PCR.All SARS CoV2 and positive influenza A/B results arereported to [facility]. 04/16/2024 3:04 PM EST 04/16/2024 3:07 PM EST us Generic External Data Provider LAB MICROBIOLOGY - GENERAL ORDERABLES Final Result [facility] [address] [place] [address] [phone] * XR Chest 2 Views (04/16/2024 2:50 PM EST) Anatomical Region Laterality Modality Chest Radiographic Lalitha ging 04/16/2024 2:50 PM EST Narrative 04/16/2024 3:13 PM EST ? [facility] ?[address] ?[place] [address] ?XRay Report ? Signed ? Patient: Sancho Loya ?MR#: [id number] ?? [id number] ? : 1960 ?Acct:[id number] ? Age/Sex: 63 / M ?ADM Date: 04/16/24 ? Loc: HO.ED ? Attending Dr: ? Ordering Physician: Yves Abdul ?? Date of Service: 04/16/24 ?? Procedure(s): XR chest 2V ?? Accession Number(s): [id number] ? cc: Danis Laurent MD; Yves Abdul [...] DD/ 1450 ? TD/TT: 04/16/24 1455 ? Microsoft Architect: ? Procedure Note Donotuseinterpreter, Image - 04/16/[address] [address] XRay Report Signed Patient: Sancho Loya LMR#: [id number] : 9Acct:[id number] Age/Sex: 63 / MADM Date: 04/16/24 Loc: HO.ED Attending Dr: Ordering Physician: Yves Abdul Date of Service: 04/16/24 Procedure(s): XR chest 2V Accession Number(s): [id number] cc: Danis Laurent MD; Yves Abdul EXAMINATION: [...] in OV> 04/16/24 1510 DD/ 1450 TD/TT: 04/16/241454 Microsoft Architect: us [facility] External Provider IMG XR PROCEDURES Final Result * Influenza B (ID NOW Rapid Molecular) (04/07/2024 2:03 PM EST) [facility] Influenza B Negative Negative, Indeterminate [facility] Swab 04/07/2024 2:03 PM EST Result [facility] Kathy Hernandez MD POINT OF CARE TEST ENTER /EDIT ORDERABLES Final Result Performing Organization Address [facility] Co de Phone Number [facility] [address] [place] [phone] * (ABNORMAL) Influenza A (ID NOW Rapid Molecular) (04/07/2024 2:03 PM EST) [facility] Influenza A Positive( A) Negative, Indeterminate [facility] Swab 04/07/2024 2:03 PM EST Result [facility] Kathy Hernandez MD POINT OF CARE TEST ENTER /EDIT ORDERABLES Final Result Performing Organization Address [facility] Co de Phone Number [facility] [address] [place] [phone] * POCT Rapid COVID Ag (04/07/2024 2:03 PM EST) [facility] Rapid COVID Ag Negative Swab 04/07/2024 2:03 PM EST Result [facility] Kathy Hernandez MD POINT OF CARE TEST ENTER /EDIT ORDERABLES Final Result * POCT rapid strep A manually resulted (04/07/2024 2:03 PM EST) [facility] Rapid Strep A Screen Negative Negative, None Detected Swab 04/07/2024 2:03 PM EST Result [facility] Kathy Hernandez MD POINT OF CARE TEST ENTER /EDIT ORDERABLES Final Result * (ABNORMAL) POCT HGB A1C (02/07/2024 2:27 PM EST) [facility] Hemoglobin A1C 7.0(A) 4.0 - 6.0 % QC Media Lot # [id number] Lot# Expiration Date [id number] Blood 02/07/2024 2:27 PM EST Danis Solomon MD POINT OF CARE TEST EN TER/EDIT ORDERABLES Final Result * (ABNORMAL) Lipid Panel, Standard (08/27/2023 9:15 AM EDT) Triglycerides 112 <150 mg/dL [facility] Comment:Desirable Triglyceri de: less than 150 mg/dLBorderline High Triglyceride 150-199 mg/dLHigh Triglyceride: 200-499 mg/dLVery High Triglyceride: greater than or equal to 5OO mg/dL Cholesterol 111 <200 mg/dL [facility] Comment:Desirable Cholestero l: less than 200 mg/dLBorderline High Cholesterol: 200-239 mg/dLHigh Cholesterol: greater than 239 mg/dL LDL Cholesterol Calculated 51 <100 mg/dL [facility] Comment:Desirable LDL: less than 100 mg/dLNear Optimal/Above Optimal LDL: 110- 129 mg/dLBorderline High LDL: 130-159 mg/dLHigh LDL: 160-189 mg/dLVery High LDL: greater than or equal to 190 mg/dL HDL Cholesterol 38(L) >40 mg/dL [facility] Comment:Desirable HDL: great er than 40 mg/dL Note: This HDL assay may give artificially low results in patients with liver disease. Blood Venous blood specimen / Unknown 08/27/2023 9:15 AM EDT 08/27/2023 11:39 AM EDT Danis Solomon MD LAB BLOOD ORDERABLES Final Result [facility] [address] [place] [phone] * Hepatitis C Antibody with Reflex to HCV, RNA, Quantitative, Real-Time PCR (06/19/2022 8:29 AM EDT) Hepatitis C Antibody NON-REACT JIMY NON-REACT JIMY [facility] Index 0.10 <1.00 [facility] Comment: HCV antibody was non-reactive. There is no laboratory evidence of HCV infection. In most cases, no further action is required. However, if recent HCV exposure is suspected, a test for HCV RNA (test code 07259) is suggested. For additional information please refer to http://education.datapine/faq/WPB67y7 (This link is being provided for informational/ educational purposes only.) Blood Venous blood specimen / Unknown 06/19/2022 8:29 AM EDT 06/19/2022 8:29 AM EDT Narrative [facility] - 06/19/2022 10:33 PM EDT FASTING:YES FASTING: YES Danis Solomon MD LAB BLOOD ORDERABLES Final Result [facility] [address], [place] [phone] [facility] [facility] [address] [place] [phone] * Colonoscopy (12/11/2019) Colonoscopy Normal Normal 12/11/2019 Jessica Montana - 12/11/2019 10:39 AM EDT Recommended 5 year follow up due to history of tubular adenoma ( see scanned report )[facility] Historical Provider HEALTH MAINTENANCE Final Result from Last 3 Months or Most Recently Relevant to Health Maintenance Insurance [facility] Care Teams Studio Receptionist Relationship Specialty Start Date End Date Danis Morales MD [address] [place] [phone] PCP - General Internal Medicine 11/24/13
--- OUTSIDE RECORDS SUMMARY | 2024-05-30 15:38 | XMS_ITS | Encounter Summary ---
Author Organization [employer] Address [address] [facility] 7t [place] [address] Care Team Providers Care Engineer Assistant Name Role Phone Danis Morales MD Primary Care Provide r Reason for Visit * Reason Comments Care Coordination CHW outreach for SDO H food needs-referral completed Encounter Details Date Type Department Care Team (Latest Contact Info) Description 05/27/2024 Patient Outreach [facility] [address] [place] [address] Danis Morales MD [address] [place] [address] Care Coordination (CHW outreach for SDOH food needs-referral completed /) Social History Tobacco Use Types Packs/Day Years [...] as of this encounter Progress Notes * Roberto Benitez - 05/27/2024 11:42 AM EDT CHW Roberto Benitez, placed outbound call to patient for assistance with SDOH as a referral was received by the provider. Patient's name and were confirmed. Patient screened positive for the following SDOH food insecurities. CHW referred patient to list of local [employer] pantries and HIP program formore resources. Patient verbalizes understanding, and able to agree to follow up with housing search and call. Patient educated on extended clinic hours on Mondays through Wednesdays, and Walk-In Urgent Care Located in [facility]. Patient provided with after- hours line for [facility], , which offer night time triage service and option to transfer to space and missile defense operations provider if needed. documented in this encounter Plan of Treatment Upcoming Encounters Date Type Department Care Team (Late st Contact Info) Description 06/10/2024 2:00 PM EDT Office Visit [facility] [address] [place] [address] Danis Morales MD [address] [place] [address] documented as of this encounter Visit Diagnoses Not on filedocumented in this encounter Additional Health Concerns Assessment Noted Time PHQ-9 Depression Total Score: 4 06/07/19 23 1:43 PM EDT documented as of this encounter Care Teams Engineer Assistant Relationship Specialty Start Date End Date Danis Morales MD [address] [place] [address] PCP - General Internal Medicine 11/24/13 documented as of this encounter
--- OUTSIDE RECORDS SUMMARY | 2024-05-30 15:38 | XMS_ITS | Encounter Summary ---
Author Organization [employer] Address [address] [facility] 7t [place] [address] Care Team Providers Care Clinical Research Management Associate Name Role Phone Danis Morales MD Primary Care Provide r Encounter Details Date Type Department Care Team (Late st Contact Info) Description 04/13/2022 Orders Only [facility] [address] [place], [place] [phone] Pat Goldberg LPN Social History Tobacco Use [...] Description 06/10/2024 2:00 PM EDT Office Visit [facility] [address] [place], [place] [phone] Danis Morales MD [address] [place], [place] [phone] documented as of this encounter Visit Diagnoses Not on filedocumented in this encounter Care Teams Clinical Research Management Associate Relationship Specialty Start Date End Date Danis Morales MD [address] [place] [address] PCP - General Internal Medicine 11/24/13 documented as of this encounter
--- OUTSIDE RECORDS SUMMARY | 2024-05-30 15:38 | XMS_ITS | Encounter Summary ---
Author Organization [facility] Address [address] [place] [address] 7t [place] [address] Care Team Providers Care Vice Chancellor Name Role Phone Danis Morales MD Primary Care Provide r Encounter Details Date Type Department Care Team (Late st Contact Info) Description 09/07/2022 Orders Only [facility] [address] [place] [address] [phone] Ailin Kumar LPN Social History Tobacco Use [...] Description 06/10/2024 2:00 PM EDT Office Visit [facility] [address] [place] [address] [phone] Danis Morales MD [address] [place], [place] [phone] documented as of this encounter Visit Diagnoses Not on filedocumented in this encounter Additional Health Concerns Assessment Noted Time PHQ-9 Depression Total Score: 4 06/07/19 23 1:43 PM EDT documented as of this encounter Care Teams Vice Chancellor Relationship Specialty Start Date End Date Danis Morales MD [address] [place] [address] PCP - General Internal Medicine 11/24/13 documented as of this encounter
--- OUTSIDE RECORDS SUMMARY | 2024-05-30 15:38 | XMS_ITS | Encounter Summary ---
Author Organization [facility] Address [address] [facility] 7t [place] [address] Care Team Providers Care Cylinder Worker Name Role Phone Danis Morales MD Primary Care Provide r Encounter Details Date Type Department Care Team (Late Contact Info) Description 06/28/2022 Abstract [facility] [address] [place] [phone] Danis Morales MD [address] [place] [address] [phone] Social History Tobacco Use Types Packs/Day Years [...] Description 06/10/2024 2:00 PM EDT Office Visit [facility] [address] [place] [address] [phone] Danis Morales MD [address] [place] [address] documented as of this encounter Procedures Procedure Name Priority Date/Time Associated Diagnosis Comments COLONOSCOPY Routine 12/11/2019 documented in this encounter Results * Colonoscopy (12/11/2019) Colonoscopy Normal Normal 12/11/2019 Narrative Mandy Jessica - 12/11/2019 10:39 AM EDT 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
--- OUTSIDE RECORDS SUMMARY | 2024-05-30 15:38 | XMS_ITS | Encounter Summary ---
Author Organization [employer] Address [address] [facility] [address] [place] [address] Care Team Providers Care Manager Golf Name Role Phone Danis Morales MD Primary Care Provide r Encounter Details Date Type Department Care Team (Late st Contact Info) Description 12/25/2022 Orders Only [facility] [address] [place], [place] [phone] Pat Goldberg LPN Social History Tobacco Use [...] Description 06/10/2024 2:00 PM EDT Office Visit [facility] [address] [place] [address] Danis Morales MD [address] [place] [address] documented as of this encounter Visit Diagnoses Not on filedocumented in this encounter Additional Health Concerns Assessment Noted Time PHQ-9 Depression Total Score: 4 06/07/19 23 1:43 PM EDT documented as of this encounter Care Teams Manager Golf Relationship Specialty Start Date End Date Danis Morales MD [address] [place] [address] PCP - General Internal Medicine 11/24/13 documented as of this encounter
--- OUTSIDE RECORDS SUMMARY | 2024-05-30 15:38 | XMS_ITS | Encounter Summary ---
Author Organization [employer] Address [address] [facility] 7t [place] [address] Care Team Providers Care Negative Cutter Name Role Phone Danis Morales MD Primary Care Provide r Reason for Visit * Reason Onset Date Comments Results 11/24/2022 Encounter Details Date Type Department Care Team ([facility] st Contact Info) Description 11/24/2022 Telephone [facility] MEDICINE [address] [place] [address] Danis Morales MD 230 [place], [place] [phone] Results Social History Tobacco Use Types Packs/Day [...] 3:13 PM EDT T/C to pt. Through [employer] id - [id number] for below message, pt. Verbally agreed and understood. Pt. Also schedule for follow up apt. On 01/04/2023 with PCP. * Telephone Encounter - Lydia Dumont - 11/24/2022 1:19 PM EDT Tc from pt requesting results of labs done 11/23. Please contact pt at [phone] (Sinhala) documented in this encounter Plan of Treatment Upcoming Encounters Date Type Department Care Team (Late st Contact Info) Description 06/10/2024 2:00 PM EDT Office Visit [facility] MEDICINE [address] [place] [address] Danis Morales MD [address] [place] [phone] documented as of this encounter Visit Diagnoses Not on filedocumented in this encounter Additional Health Concerns Assessment Noted Time PHQ-9 Depression Total Score: 4 06/07/19 23 1:43 PM EDT documented as of this encounter Care Teams Negative Cutter Relationship Specialty Start Date End Date Danis Morales MD [address] [place] [id number] PCP - General Internal Medicine 11/24/13 documented as of this encounter
--- OUTSIDE RECORDS SUMMARY | 2024-05-30 15:38 | XMS_ITS | Encounter Summary ---
Author Organization [employer] Address [address] [facility] 7t [place] [address] Care Team Providers Care Supervising Deputy Name Role Phone Danis Morales MD Primary Care Provide r Encounter Details Date Type Department Care Team (Late st Contact Info) Description 05/30/2022 Orders Only [facility] CHC MED & PEDS [address] [place], [place] [phone] Pat Goldberg LPN Social History Tobacco Use [...] Description 06/10/2024 2:00 PM EDT Office Visit [facility] MEDICINE 230 [place] [address] Danis Morales MD 230 [place] [address] documented as of this encounter Visit Diagnoses Not on filedocumented in this encounter Care Teams Supervising Deputy Relationship Specialty Start Date End Date Danis Morales MD [address] [place] [phone] PCP - General Internal Medicine 9/29/14 documented as of this encounter
== END 2024-05-30 14:36 | disposition home or self-care (01) ==
LOC: HO.HGI 13:52
PROVIDERS: PCP Internal Medicine; Visit Provider Nurse Practitioner
DX: K31.84 Gastroparesis (principal); K21.9 Gastro-esophageal reflux disease without esophagitis; R14.0 Abdominal distension (gaseous); K58.1 Irritable bowel syndrome with constipation; D12.6 Benign neoplasm of colon, unspecified
CPT/HCPCS: 99213

== ENCOUNTER → 2024-05-30 13:51 | Outpatient (BNVA) | payer OTHER, SELFPAY | PROVIDERS: PCP Internal Medicine; Visit Provider Nurse Practitioner | DX: K31.84 Gastroparesis (principal); K21.9 Gastro-esophageal reflux disease without esophagitis; K58.1 Irritable bowel syndrome with constipation; R14.0 Abdominal distension (gaseous); D12.6 Benign neoplasm of colon, unspecified | CPT/HCPCS: 99212 ==

== ENCOUNTER 2024-06-06 15:05 | Outpatient (REF) | payer OTHER, SELFPAY ==
--- OUTSIDE RECORDS SUMMARY | 2024-06-06 15:08 | XMS_ITS | Encounter Summary ---
Author Organization [employer] [facility] Address [address] [facility] 7t [place] [address] Care Team Providers Care Boat Rigger Name Role Phone Danis Morales MD Primary Care Provide r Encounter Details Date Type Department Care Team (Late Contact Info) Description 06/28/2022 Abstract [facility] MEDICINE [address] [place] [phone] Danis Morales MD [address] [place] [address] [phone] Social History Tobacco Use Types Packs/Day Years [...] 2:00 PM EDT Office Visit [facility] MEDICINE [address] [place] [address] [phone] Danis Morales MD 230 [place] [address] documented as of this encounter Procedures Procedure Name Priority Date/Time Associated Diagnosis Comments COLONOSCOPY Routine 12/11/2019 documented in this encounter Results * Colonoscopy (12/11/2019) Colonoscopy Normal Normal 12/11/2019 Narrative Mandy Jessica - 12/11/2019 10:39 AM EDT Recommended 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
--- OUTSIDE RECORDS SUMMARY | 2024-06-06 15:08 | XMS_ITS | Encounter Summary ---
Author Organization [employer] Address [address] [facility] 7t [place] [address] Care Team Providers Care Phone Operator Name Role Phone Danis Morales MD Primary Care Provide r Reason for Visit * Reason Onset Date Comments Results 11/24/2022 Encounter Details Date Type Department Care Team ([facility] st Contact Info) Description 11/24/2022 Telephone [facility] MEDICINE 230 [place] [address] Danis Morales MD [address] [place], [place] [phone] Results Social History Tobacco Use Types Packs/Day [...] 3:13 PM EDT T/C to pt. Through [employer] id - [id number] for below message, pt. Verbally agreed and understood. Pt. Also schedule for follow up apt. On 01/04/2023 with PCP. * Telephone Encounter - Lydia Dumont - 11/24/2022 1:19 PM EDT Tc from pt requesting results of labs done 11/23. Please contact pt at [phone] (Cypriot) documented in this encounter Plan of Treatment Upcoming Encounters Date Type Department Care Team (Late st Contact Info) Description 06/10/2024 2:00 PM EDT Office Visit [facility] MEDICINE 230 [place] [address] Danis Morales MD [address] [place] [phone] documented as of this encounter Visit Diagnoses Not on filedocumented in this encounter Additional Health Concerns Assessment Noted Time PHQ-9 Depression Total Score: 4 06/07/19 23 1:43 PM EDT documented as of this encounter Care Teams Phone Operator Relationship Specialty Start Date End Date Danis Morales MD [address] [place] [phone] PCP - General Internal Medicine 11/24/13 documented as of this encounter
--- OUTSIDE RECORDS SUMMARY | 2024-06-06 15:08 | XMS_ITS | Encounter Summary ---
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, 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, 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 For clarification, contact pt at [phone] documented in this encounter Plan of Treatment Upcoming Encounters Date Type Department Care Team (Late st Contact Info) Description 06/10/2024 2:00 PM EDT Office Visit [facility] MEDICINE 230 [place] [address] Danis Morales MD 230 [place], [place] [phone] documented as of this encounter Visit Diagnoses Not on filedocumented in this encounter Additional Health Concerns Assessment Noted Time PHQ-9 Depression Total Score: 4 06/07/19 23 1:43 PM EDT documented as of this encounter Care Teams Bobbin Fixer Relationship Specialty Start Date End Date Danis Morales MD 230 [place], [place] [phone] PCP - General Internal Medicine 11/24/13 documented as of this encounter
--- OUTSIDE RECORDS SUMMARY | 2024-06-06 15:08 | XMS_ITS | Encounter Summary ---
Author Organization [employer] Address [address] [facility] 7t [place] [address] Care Team Providers Care Taxation Inspector Name Role Phone Danis Morales MD Primary Care Provide r Encounter Details Date Type Department Care Team (Late st Contact Info) Description 09/25/2022 Orders Only [facility] CHC MED & PEDS [address] [place], [place] [phone] Pat Goldberg LPN Social History Tobacco Use [...] Description 06/10/2024 2:00 PM EDT Office Visit [facility] MEDICINE 230 [place], [place] [phone] Danis Morales MD 230 [place], [place] [phone] documented as of this encounter Visit Diagnoses Not on filedocumented in this encounter Additional Health Concerns Assessment Noted Time PHQ-9 Depression Total Score: 4 06/07/19 23 1:43 PM EDT documented as of this encounter Care Teams Taxation Inspector Relationship Specialty Start Date End Date Danis Morales MD [address] [place] [address] PCP - General Internal Medicine 11/24/13 documented as of this encounter
--- OUTSIDE RECORDS SUMMARY | 2024-06-06 15:08 | XMS_ITS | Encounter Summary ---
Author Organization [employer] Address [address] [facility] 7t [place] [address] Care Team Providers Care County Treasurer Name Role Phone Danis Morales MD Primary Care Provide r Encounter Details Date Type Department Care Team (Late st Contact Info) Description 05/30/2022 Orders Only [facility] CHC MED & PEDS [address] [place], [place] [phone] Pat Goldberg LPN Social History Tobacco Use [...] Office Visit [facility] MEDICINE 230 [place] [address] Danis Morales MD 230 [place] [address] documented as of this encounter Visit Diagnoses Not on filedocumented in this encounter Care Teams County Treasurer Relationship Specialty Start Date End Date Danis Morales MD [address] [place] [phone] PCP - General Internal Medicine 9/29/14 documented as of this encounter
--- OUTSIDE RECORDS SUMMARY | 2024-06-06 15:08 | XMS_ITS | Encounter Summary ---
Author Organization [email or web address] [facility] Address [address] [place] [address] 7t [place] [address] Care Team Providers Care Utilization Review Specialist Name Role Phone Danis Morales MD Primary Care Provide r Encounter Details Date Type Department Care Team (Late st Contact Info) Description 09/07/2022 Orders Only [facility] MEDICINE [address] [place] [address] [phone] Ailin Kumar LPN Social History Tobacco Use [...] EDT Office Visit [facility] MEDICINE [address] [place] [address] [phone] Danis Morales MD 230 [place], [place] [phone] documented as of this encounter Visit Diagnoses Not on filedocumented in this encounter Additional Health Concerns Assessment Noted Time PHQ-9 Depression Total Score: 4 06/07/19 23 1:43 PM EDT documented as of this encounter Care Teams Utilization Review Specialist Relationship Specialty Start Date End Date Danis Morales MD 230 [place] [address] PCP - General Internal Medicine 11/24/13 documented as of this encounter
--- OUTSIDE RECORDS SUMMARY | 2024-06-06 15:08 | XMS_ITS | Encounter Summary ---
Author Organization [employer] [facility] Address [address] [facility] 7t [place] [address] Care Team Providers Care Electrical Instrumentation Technician Name Role Phone Danis Morales MD Primary Care Provide r Encounter Details Date Type Department Care Team (Late st Contact Info) Description 02/16/2022 Orders Only [facility] [address] [place] [address] Ailin Kumar LPN Social History Tobacco Use [...] Description 06/10/2024 2:00 PM EDT Office Visit [facility] MEDICINE [address] [place] [address] Danis Morales MD 230 [place] [address] documented as of this encounter Visit Diagnoses Not on filedocumented in this encounter Care Teams Electrical Instrumentation Technician Relationship Specialty Start Date End Date Danis Morales MD 230 [place] [address] PCP - General Internal Medicine 11/24/13 documented as of this encounter
--- OUTSIDE RECORDS SUMMARY | 2024-06-06 15:08 | XMS_ITS | Encounter Summary ---
Author Organization [employer] Address [address] [facility] [address] 7t [place] [address] Care Team Providers Care Procurement Inspector Name Role Phone Danis Morales MD Primary Care Provide r Encounter Details Date Type Department Care Team (Late st Contact Info) Description 12/25/2022 Orders Only [facility] CHC MED & PEDS [address] [place], [place] [phone] Pat Goldberg LPN Social History Tobacco Use [...] Description 06/10/2024 2:00 PM EDT Office Visit [facility] MEDICINE 230 [place] [address] Danis Morales MD 230 [place] [address] documented as of this encounter Visit Diagnoses Not on filedocumented in this encounter Additional Health Concerns Assessment Noted Time PHQ-9 Depression Total Score: 4 06/07/19 23 1:43 PM EDT documented as of this encounter Care Teams Procurement Inspector Relationship Specialty Start Date End Date Danis Morales MD 230 [place] [address] PCP - General Internal Medicine 11/24/13 documented as of this encounter
--- OUTSIDE RECORDS SUMMARY | 2024-06-06 15:09 | XMS_ITS | Encounter Summary ---
Author Organization [employer] [facility] Address [address] [facility] 7t [place] [address] Care Team Providers Care Meat Pickler Name Role Phone Danis Morales MD Primary Care Provide r Encounter Details Date Type Department Care Team (Late Contact Info) Description 04/10/2022 Orders Only [facility] MEDICINE [address] [place] [address] [phone] Ailin Kumar LPN Social History Tobacco Use [...] 2:00 PM EDT Office Visit [facility] MEDICINE [address] [place] [address] [phone] Danis Morales MD [address] [place] [address] [phone] documented as of this encounter Visit Diagnoses Not on filedocumented in this encounter Care Teams Meat Pickler Relationship Specialty Start Date End Date Danis Morales MD 230 [place] [address] PCP - General Internal Medicine 11/24/13 documented as of this encounter
--- OUTSIDE RECORDS SUMMARY | 2024-06-06 15:09 | XMS_ITS | Encounter Summary ---
Author Organization [employer] Address [address] [facility] 7t [place] [address] Care Team Providers Care Safety Fire Boss Name Role Phone Danis Morales MD Primary Care Provide r Encounter Details Date Type Department Care Team (Late st Contact Info) Description 04/13/2022 Orders Only [facility] CHC MED & PEDS [address] [place], [place] [phone] Pat Goldberg LPN Social History Tobacco Use [...] 2:00 PM EDT Office Visit [facility] MEDICINE 230 [place], [place] [phone] Danis Morales MD 230 [place], [place] [phone] documented as of this encounter Visit Diagnoses Not on filedocumented in this encounter Care Teams Safety Fire Boss Relationship Specialty Start Date End Date Danis Morales MD 230 [place] [address] PCP - General Internal Medicine 11/24/13 documented as of this encounter
--- OUTSIDE RECORDS SUMMARY | 2024-06-06 15:09 | XMS_ITS | Clinical Summary ---
Author Organization [employer] Address 75 [facility] 7t [place] [address] Care Team Providers Care Laborer Name Role Phone Danis Morales MD Primary [...] record from that organization. UltiCare Short Pen Unity 31G X 8 MM miscIndication s:Type 2 diabetes mellitus without complication, unspecified whether termite treater insulin use ([facility]) USE EVERY EVENING 100 each 3 023 Active Alcohol Swabs (Alcohol Prep) 70 % pads USE FOUR TIMES DAILY 100 each 11 024 Active montelukast (Singulair) 10 MG tablet TAKE 1 TABLET BY MOUTH EVERY EVENING 30 tablet 6 024 Active Continuous Glucose Scruff Worker (FreeStyle Briana 2 Fountain) deviceIndicati ons:Type 2 diabetes mellitus without complication, with long-term current use of insulin ([facility]) Scan sensor every 8 hours 1 each 3 024 Active Continuous Glucose Sensor (FreeStyle Briana 2 Sensor) miscIndication s:Type 2 diabetes mellitus without complication, with long-term current use of insulin ([facility]) Apply 1 sensor every 14 days 2 [...] tablet 3 024 Active TechLite Plus Pen Unity 32G X 4 MM misc USE ONCE [...] complication, with long-term current use of insulin ([facility]) TAKE 1 TABLET BY MOUTH THREE TIMES DAILY 90 tablet 6 Active insulin glargine (Lantus SoloStar) 100 UNIT/ML penIndications :Type 2 diabetes mellitus without complication, with long-term current use of insulin ([facility]) INJECT 42 UNITS SUBCUTANEOUSLY AT BEDTIME 15 [...] complication, with long-term current use of insulin ([facility]) INJECT 42 SUBCUTANEOUSLY AT BEDTIME 15 mL [...] Plan (08/23/2023 11:56 AM EDT): Evaluated by Social Sciences Lecturer Dr Ocampo Stress testing 06/2023 Negative for [...] were wnl. Pt currently following with GI. [facility] health care 06/06/2022 Assessment & Plan (02/07/2024 [...] work up. He was seen by a news specialist (Dr Patel) last seen 04/13/2015 he repeated his PFTs that were almost normal so he recommended to DC Advair and Spiriva and keep him on Albuterol prn only Of note pt has had PFT'S and a Methacholine challenge at [facility] [place]. Pt is on Advair HFA 250/50, Singulair and Albuterol He is now under the care of Dr Pa Watson, last seen 09/10/2023 Assessment & Plan (08/23/2023 11:46 AM EDT): Doing well, no recent exacerbation Pt has a Hx of a chronic cough for which he had an extensive pulmonary work up. He was seen by a news specialist (Dr Patel) last seen 04/13/2015 he repeated his PFTs that were almost normal so he recommended to DC Advair and Spiriva and keep him on Albuterol prn only Of note pt has had PFT'S and a Methacholine challenge at [facility] that was negative. Pt is on Advair HFA 250/50 and Albuterol He is now under the care of Dr Pa Watson, last seen 02/2023 Assessment & Plan (06/06/2022 1:47 PM EDT): Doing well, no recent exacerbation Pt has a Hx of a chronic cough for which he had an extensive pulmonary work up. He was seen by a news specialist (Dr Patel) last seen 04/13/2015 he repeated his PFTs that were almost normal so he recommended to DC Advair and Spiriva and keep him on Albuterol prn only Of note pt has had PFT'S and a Methacholine challenge at [facility] that was negative. Pt is on Advair [...] medications. Eye exam last done by Dr Connor(child life specialist). Microalbumin checked on: 06/20/2023 was: 0.4 Pt [...] medications. Eye exam last done by Dr Connor(child life specialist). Microalbumin checked on: 04/19/2020 was: 1.4 Pt is not on an JOSEPHINE inhibitor/ARB due to previous concerns of cough induced by JOSEPHINE and borderline low blood pressure. Foot check risk of zero Pt reports compliance with Asa 81 mg po daily Pt advised to: adhere to diabetic diet check your blood sugars regularly check your feet on a daily basis Plan: As per [facility] Endocr[facility] Assessment & Plan (08/23/2023 11:45 AM [...] Endocrinology Eye exam last done by Dr Connor(child life specialist). Microalbumin checked on: 04/19/2020 was: 1.4 Pt is not on an JOSEPHINE inhibitor/ARB due to previous concerns of cough induced by JOSEPHINE and borderline low blood pressure. Foot check risk of zero Pt reports compliance with Asa 81 mg po daily Pt advised to: adhere to diabetic diet check your blood sugars regularly check your feet on a daily basis Plan: As per [facility] Endocr[facility] Assessment & Plan (01/04/2023 2:30 PM [...] was asked to schedule an appointment at [facility] Endocr[facility]ology, pt insisted that he had one at [facility] but it seems he was confused He was evaluated by our nutrition educator and Blind Escort Eye exam last done by Dr Connor(child life specialist). Microalbumin checked on: 04/19/2020 was: 1.4 Pt [...] a daily basis Plan: referred back to [facility] End[facility] Assessment & Plan (10/10/2022 1:36 PM [...] referred back to Endocrinology Plan: referal to nutrition educator and Blind Escort as well as Communication Center Coordinator at [facility] check BG regularly Increase Lantus to 42 units subcutaneous qhs f/u 3 months with me Eye exam was last done on: 08/24/16. by Dr. Dr Connor(child life specialist). Microalbumin checked on: 04/19/2020 was: 1.4 Pt [...] last done on: 08/24/16. by Dr. Dr Connor(child life specialist). Microalbumin checked on: 04/19/2020 was: 1.4 Pt [...] under the care of Thoracic surgery at [facility]. Pt seemed convinced that this is contributing to his chronic cough and wanted to have it excised. Pt is now s/p R VATS/pericardial cyst resection by Dr Melissa Smith at [facility] [place] on 07/10/2012 Pt was noted to be tachycardic during the post op period and started on Cardizem with good effects. For pain control he is using percocet as needed. Pt was last seen by Dr Smith on: 08/28/2012 Pt was seen again for f/u by jin Bhat at [facility] Thoracic on 11/05/13 who recommended NO further [...] a psychotherapist her name is janes Nieves: [phone] Patient denies any suicidal ideation or thoughts, [...] Department Care Team Description 05/27/2024 Patient Outreach [facility] [address] [place] [address] Roberto Benitez 05/27/2024 Patient Outreach [facility] [address] [place] [address] Danis Morales MD Care Coordination (CHW outreach for SDOH food needs-referral completed /) 05/27/2024 Patient Outreach [facility] [address] [place] [address] Danis Morales MD Pre-visit Planning (SDOH Screening positive and Tobacco screening negative) 05/21/2024 Telephone [facility] [address] [place] [address] Danis Morales MD Chart Prep 05/21/2024 Refill [facility] [address] [place], [place] [phone] Danis Morales MD Type 2 diabetes mellitus without complication, with long-term current use of insulin ([facility]) 04/16/2024 Orders Only [facility] External Provider, [facility] 04/07/2024 2:20 PM EST Office Visit [facility] [address] [place] [address] Kathy Hernandez MD Influenza A (Primary Dx) 03/25/2024 Refill [facility] [address] [place] [address] Ino Walton, PMHNP Depressive disorder 03/23/2024 Refill [facility] [address] [place] [address] Danis Morales MD Type 2 diabetes mellitus without complication, with long-term current use of insulin ([facility]) 03/19/2024 Refill [facility] [address], [place] [phone] Danis Morales MD 03/11/2024 Orders Only [facility] [address], [place] [phone] Danis Morales MD Acute pain of left knee (Primary Dx) from Last 3 Months Immunizations Name Administration [...] 2:00 PM EDT Office Visit [facility] [address] [place] [address] Danis Morales MD [address] [place] [address] Health Maintenance Due Date Last Done Comments [...] PM EST) Influenza A PCR NEGATIVE Negative [facility] Influenza B PCR NEGATIVE Negative [facility] Resp Syncy Virus RNA Qual PCR NEGATIVE Negative [facility] SARS COV2 PCR NEGATIVE Negative [facility] Comment:All test results mus t be [...] use by authorized laboratories.Testing performed on the Fashinating GeneXpert utilizingreal-time RT-PCR.All SARS CoV2 and positive influenza A/B results arereported to [facility]. 04/16/2024 3:04 PM EST 04/16/2024 3:07 PM EST us Generic External Data Provider LAB MICROBIOLOGY - GENERAL ORDERABLES Final Result [facility] [address] [place] [phone] * XR Chest 2 Views (04/16/2024 2:50 PM EST) Anatomical Region Laterality Modality Chest Radiographic Lalitha ging 04/16/2024 2:50 PM EST Narrative 04/16/2024 3:13 PM EST ? [facility] ?[address] ?[place] [address] ?XRay Report ? Signed ? Patient: Sancho Loya ?MR#: [id number] ?? [id number] ? : 1960 ?Acct:[id number] ? Age/Sex: 63 / M ?ADM Date: 04/16/24 ? Loc: HO.ED ? Attending Dr: ? Ordering Physician: Yves Abdul ?? Date of Service: 04/16/24 ?? Procedure(s): XR chest 2V ?? Accession Number(s): [id number] ? cc: Danis Laurent MD; Yves Abdul [...] DD/ 1450 ? TD/TT: 04/16/24 1455 ? Overlock Waistline Joiner: ? Procedure Note Donotuseinterpreter, Image - 04/16/[address] [address] XRay Report Signed Patient: Sancho Loya LMR#: [id number] : 9Acct:[id number] Age/Sex: 63 / MADM Date: 04/16/24 Loc: .ED Attending Dr: Ordering Physician: Yves Abdul Date of Service: 04/16/24 Procedure(s): XR chest 2V Accession Number(s): [id number] cc: Danis Laurent MD; Yves Abdul EXAMINATION: [...] 04/16/24 1510 DD/ 1450 TD/TT: 04/16/24 1455 Overlock Waistline Joiner: [facility] External Provider IMG XR PROCEDURES Final Result * Influenza B (ID NOW Rapid Molecular) (04/07/2024 2:03 PM EST) Influenza B Negative Negative, Indeterminate [facility] Swab 04/07/2024 2:03 PM EST Result [facility] Kathy Hernandez MD POINT OF CARE TEST ENTER /EDIT ORDERABLES Final Result Performing Organization Address [facility]/ZIP Co de Phone Number [facility] [address] [place] [phone] * (ABNORMAL) Influenza A (ID NOW Rapid Molecular) (04/07/2024 2:03 PM EST) [facility] Influenza A Positive( A) Negative, Indeterminate [facility] Swab 04/07/2024 2:03 PM EST Result [facility] Kathy Hernandez MD POINT OF CARE TEST ENTER /EDIT ORDERABLES Final Result Performing Organization Address [facility] Co de Phone Number [facility] [address] [place] [phone] * POCT Rapid COVID Ag (04/07/2024 2:03 PM EST) [facility] Rapid COVID Ag Negative Swab 04/07/2024 2:03 PM EST Result [facility] Kathy Hernandez MD POINT OF CARE TEST ENTER /EDIT ORDERABLES Final Result * POCT rapid strep A manually resulted (04/07/2024 2:03 PM EST) [facility] Rapid Strep A Screen Negative Negative, None Detected Swab 04/07/2024 2:03 PM EST Result [facility] Kathy Hernandez MD POINT OF CARE TEST ENTER /EDIT ORDERABLES Final Result * (ABNORMAL) POCT HGB A1C (02/07/2024 2:27 PM EST) [facility] Hemoglobin A1C 7.0(A) 4.0 - 6.0 % QC Media Lot # [id number] Lot# Expiration Date [id number] Blood 02/07/2024 2:27 PM EST Danis Solomon MD POINT OF CARE TEST EN TER/EDIT ORDERABLES Final Result * (ABNORMAL) Lipid Panel, Standard (08/27/2023 9:15 AM EDT) Triglycerides 112 <150 mg/dL [facility] Comment:Desirable Triglyceri de: less than 150 mg/dLBorderline High Triglyceride 150-199 mg/dLHigh Triglyceride: 200-499 mg/dLVery High Triglyceride: greater than or equal to 5OO mg/dL Cholesterol 111 <200 mg/dL [facility] Comment:Desirable Cholestero l: less than 200 mg/dLBorderline High Cholesterol: 200-239 mg/dLHigh Cholesterol: greater than 239 mg/dL LDL Cholesterol Calculated 51 <100 mg/dL [facility] Comment:Desirable LDL: less than 100 mg/dLNear Optimal/Above Optimal LDL: 110- 129 mg/dLBorderline High LDL: 130-159 mg/dLHigh LDL: 160-189 mg/dLVery High LDL: greater than or equal to 190 mg/dL HDL Cholesterol 38(L) >40 mg/dL [facility] Comment:Desirable HDL: great er than 40 mg/dL Note: This HDL assay may give artificially low results in patients with liver disease. Blood Venous blood specimen / Unknown 08/27/2023 9:15 AM EDT 08/27/2023 11:39 AM EDT Danis Solomon MD LAB BLOOD ORDERABLES Final Result [facility] [address] [place] [address] [phone] * Hepatitis C Antibody with Reflex to HCV, RNA, Quantitative, Real-Time PCR (06/19/2022 8:29 AM EDT) Hepatitis C Antibody NON-REACT JIMY NON-REACT JIMY [employer] [place] Stylistpick Index 0.10 <1.00 [employer] [place] [employer] Comment: HCV antibody was non-reactive. There is no laboratory evidence of HCV infection. In most cases, no further action is required. However, if recent HCV exposure is suspected, a test for HCV RNA (test code 06474) is suggested. For additional information please refer to http://education.[employer]/faq/DZN84z9 (This link is being provided for informational/ educational purposes only.) Blood Venous blood specimen / Unknown 06/19/2022 8:29 AM EDT 06/19/2022 8:29 AM EDT Narrative [facility] - 06/19/2022 10:33 PM EDT FASTING:YES FASTING: YES Danis Solomon MD LAB BLOOD ORDERABLES Final Result [facility] [address], [place] [phone] [employer] [facility] [address] [place] [phone] * Colonoscopy (12/11/2019) Colonoscopy Normal Normal 12/11/2019 Jessica Montana - 12/11/2019 10:39 AM EDT Recommended 5 year follow up due to history of tubular adenoma ( see scanned report )[facility] Historical Provider HEALTH MAINTENANCE Final Result from Last 3 Months or Most Recently Relevant to Health Maintenance Insurance [facility] Care Teams Laborer Relationship Specialty Start Date End Date Danis Morales MD [address] [place] [phone] PCP - General Internal Medicine 11/24/13
[2024-06-06 15:57] LABS: Anion Gap 13 (12-20); Blood Urea Nitrogen 21 mg/dL (9-16); Carbon Dioxide 24 mmol/L (22-29); Chloride 107 mmol/L (96-108); Estimated Glomerular Filt Rate > 60; Potassium 4.3 mmol/L (3.3-5.1); Sodium 140 mmol/L (135-145)
== END 2024-06-06 15:06 | disposition home or self-care (01) ==
LOC: HO.LAB 15:05
PROVIDERS: PCP Internal Medicine; Visit Provider Internal Medicine Nephrology
DX: N17.9 Acute kidney failure, unspecified (principal); N18.31 Chronic kidney disease, stage 3a
CPT/HCPCS: 36415; 80051; 82565; 84520

== ENCOUNTER 2024-06-20 14:18 | Outpatient (AMB) | payer OTHER, SELFPAY ==
[2024-06-20 14:20] VITALS: BP 118/65; PULSE 94; O2SAT 94; BMI 29.3
--- NOTE | 2024-06-20 14:20 | HO.NEPHOV ---
Vital Signs 06/20/24 14:20 Height 5 ft 9 in Weight 198 lb 6 oz BMI 29.3 BP 118/65 Blood Pressure Location Lt brachial Position Sitting Pulse 94 Pulse Source Pulse Oximeter Pulse Oximetry (%) 94 Oxygen Delivery Method Room Air Intake Visit Reasons: 3mon follow-up w/labs-LVM Shift Superintendent Caustic Cresylate Required: Yes Shift Superintendent Caustic Cresylate Language: Hungarian Accompanied by: Self / Same As Patient Allergies No Known Allergies Allergy (Verified 06/20/24 14:22) Do you need a note to return to daycare/school/sports/work: No HPI Comments Details: Sancho was seen in follow up for his CKD . He is a long standing diabetic but has not had any significant proteinuria. He is on multiple blood sugar lowering medications including Jardiance. He denies any hypoglycemias. He is not on any ACEI/ARB and denies taking excess NSAID's. He denies any CAD, carotid stenosis, CVA, PAD, SHAE or CHF. He denies any epistaxis, photosensitivity, skin rashes, edema, hemoptysis, hemetemesis, melena, hematuria, recurrent sore throat, hepatitis, HIV , deafness. His recent serum creatinine has improved to baseline [facility] Medical History Asthma-COPD overlap syndrome HTN (hypertension) Dysphagia Cough Bronchitis Pneumonia Acute bronchospasm Acute bronchitis with asthma with acute exacerbation New abnormality on chest x-ray Depression Diabetes Chronic GERD Anxiety Hyperlipidemia Asthma Surgical History Status post rotator cuff surgery Hx of toe surgery Hx of repair of rotator cuff Hx of hernia repair Hx of colonoscopy Hx of esophagogastroduodenoscopy Family History Father No problems noted. Mother Hx of breast cancer Sister Diabetes Maternal Aunt Heart problem Social History Household Members: Spouse Housing: Apartment Alcohol intake: unknown Patient Tobacco Use Status: Former Tobacco user Years Smoked: 20 yrs ( quit 8 years ago) Second Hand Smoke Exposure: Yes service: No Current occupational status: retired Review of Systems Const All systems reviewed & are unremarkable except as noted in HPI and below Physical Exam Vital Signs: Last Vital Signs Pulse 94 06/20/24 14:20 BP 118/65 06/20/24 14:20 Pulse Ox 94 06/20/24 14:20 Oxygen Delivery Method Room Air 06/20/24 14:20 BMI result Body Mass Index 29.3 Const General: comfortable and no acute distress Orientation/consciousness: patient oriented x3 HEENT Head: Yes normocephalic Mouth: Normal oral and palatal mucosa present Eyes EOM: EOMs intact bilaterally Neck Neck: Yes supple Resp Auscultation: clear to auscultation bilaterally Cardio Jugular venous distension: no JVD Rate: regular rate GI Palpation (GI): Soft to palpation Auscultation: normal bowel sounds General: Yes no CVA tenderness Back/Spine/Pelvis Back: no CVA tenderness Skin General skin exam: no rashes or lesions noted Neuro General: patient oriented x3 and moves all extremities Extrem General: Yes no pedal edema Results Reviewed Nephrology Results: Sodium 140 mmol/L (135-145) 06/06/24 Potassium 4.3 mmol/L (3.3-5.1) 06/06/24 Chloride 107 mmol/L (96-108) 06/06/24 Carbon Dioxide 24 mmol/L (22-29) 06/06/24 BUN 21 mg/dL (9-16) H 06/06/24 Creatinine 1.11 mg/dL (0.5-1.4) 06/06/24 Calcium 9.2 mg/dL (8.4-10.2) 02/11/24 Urine Protein Negative mg/dL (Neg-Trace) 02/11/24 Urine Creatinine 66.64 mg/dL 02/11/24 Protein/Creatinin Ratio TNP 02/11/24 Renal US 02/15/24 Assessment & Plan Assessment & Plan (1) HTN (hypertension): Code(s): I10 - Essential (primary) hypertension Category: Medical Qualifiers: Hypertension type: primary hypertension Qualified Code(s): I10 - Essential (primary) hypertension (2) CKD stage 3a, GFR 45-59 ml/min: Code(s): N18.31 - Chronic kidney disease, stage 3a Category: Medical Plan Sancho had tubular injury causing rise in serum creatinine, which has resolved. He has DM for long time and has underlying CKD. He never had significant proteinuria in the past. His urine output is good. He is on Jardiance. I plan to initiate him on low dose of ACEI with time. He should avoid NSAID's and ensure good hydration. All these have been explained in detail. Further management is pending evolving data Orders: Orders Creatinine 4 Months I10 - Essential (primary) hypertension, N18.31 - Chronic kidney disease, stage 3a Blood Urea Nitrogen 4 Months I10 - Essential (primary) hypertension, N18.31 - Chronic kidney disease, stage 3a Electrolytes 4 Months I10 - Essential (primary) hypertension, N18.31 - Chronic kidney disease, stage 3a Coding Level of Care Code Est Pt Level 4 (04738) Diagnoses Primary hypertension I10 Hypertension type: primary hypertension CKD stage 3a, GFR 45-59 ml/min N18.31
--- OUTSIDE RECORDS SUMMARY | 2024-06-20 14:59 | XMS_ITS | Encounter Summary ---
Author Organization [employer] Address [address] [facility] 7t [place] [address] Care Team Providers Care Editor Publications Name Role Phone Danis Morales MD Primary Care Provide r Encounter Details Date Type Department Care Team (Late st Contact Info) Description 04/13/2022 Orders Only [facility] [address] [place], [place] [phone] Pat Goldberg LPN Social History Tobacco Use [...] Care Team (Late st Contact Info) Description 09/09/2024 2:00 PM EDT Office Visit [facility] [address] [place], [place] [phone] Danis Morales MD [address] [place], [place] [phone] documented as of this encounter Visit Diagnoses Not on filedocumented in this encounter Care Teams Editor Publications Relationship Specialty Start Date End Date Danis Morales MD [address] [place] [address] PCP - General Internal Medicine 11/24/13 documented as of this encounter
--- OUTSIDE RECORDS SUMMARY | 2024-06-20 14:59 | XMS_ITS | Encounter Summary ---
Author Organization [employer] Address [address] [facility] [address]t [place] [address] Care Team Providers Care Building Services Supervisor Name Role Phone Danis Morales MD Primary Care Provide r Encounter Details Date Type Department Care Team (Late st Contact Info) Description 09/25/[address] [facility] [address] [place], [place] [phone] Pat Goldberg LPN Social History Tobacco Use [...] Description 09/09/2024 2:00 PM EDT Office Visit [facility] [address] [place], [place] [phone] Danis Morales MD [address] [place], [place] [phone] documented as of this encounter Visit Diagnoses Not on filedocumented in this encounter Additional Health Concerns Assessment Noted Time PHQ-9 Depression Total Score: 4 06/07/19 23 1:43 PM EDT documented as of this encounter Care Teams Building Services Supervisor Relationship Specialty Start Date End Date Danis Morales MD [address] [place] [phone] PCP - General Internal Medicine 11/24/13 documented as of this encounter
--- OUTSIDE RECORDS SUMMARY | 2024-06-20 14:59 | XMS_ITS | Encounter Summary ---
Author Organization [employer] Address 75 [facility] 7t [place] [address] Care Team Providers Care Manager Office Services Name Role Phone Danis Morales MD Primary Care Provide r Reason for Visit * Reason Onset Date Comments Results 11/24/2022 Encounter Details Date Type Department Care Team ([facility] st Contact Info) Description 11/24/2022 Telephone [facility] [address] [place] [address] Danis Moralse MD [address] [place], [place] [phone] Results Social History Tobacco Use Types Packs/Day [...] 3:13 PM EDT T/C to pt. Through [employer] id - [id number] for below message, pt. Verbally agreed and understood. Pt. Also schedule for follow up apt. On 01/04/2023 with PCP. * Telephone Encounter - Lydia Dumont - 11/24/2022 1:19 PM EDT Tc from pt requesting results of labs done 11/23. Please contact pt at [phone] ([place]) documented in this encounter Plan of Treatment Upcoming Encounters Date Type Department Care Team (Late st Contact Info) Description 09/09/2024 2:00 PM EDT Office Visit [facility] [address] [place] [address] Danis Morales MD [address] [place] [phone] documented as of this encounter Visit Diagnoses Not on filedocumented in this encounter Additional Health Concerns Assessment Noted Time PHQ-9 Depression Total Score: 4 06/07/19 23 1:43 PM EDT documented as of this encounter Care Teams Manager Office Services Relationship Specialty Start Date End Date Danis Morales MD [address] [place] [phone] PCP - General Internal Medicine 11/24/13 documented as of this encounter
--- OUTSIDE RECORDS SUMMARY | 2024-06-20 14:59 | XMS_ITS | Encounter Summary ---
Author Organization [employer] Address [address] [facility] [address] [place] [address] Care Team Providers Care Aluminum Polisher Name Role Phone Danis Morales MD Primary Care Provide r Encounter Details Date Type Department Care Team (Late st Contact Info) Description 05/30/2022 Orders Only [facility] [address] [place], [place] [phone] Pat Goldberg LPN Social History Tobacco Use [...] Description 09/09/2024 2:00 PM EDT Office Visit [facility] [address] [place] [address] Danis Morales MD [address] [place] [address] documented as of this encounter Visit Diagnoses Not on filedocumented in this encounter Care Teams Aluminum Polisher Relationship Specialty Start Date End Date Danis Morales MD [address] [place] [address] [phone] PCP - General Internal Medicine 9/29/14 documented as of this encounter
--- OUTSIDE RECORDS SUMMARY | 2024-06-20 14:59 | XMS_ITS | Encounter Summary ---
Author Organization [facility] [facility] Address [address] [facility] [address] [place] [address] Care Team Providers Care Radio Installer Automobile Name Role Phone Danis Morales MD Primary Care Provide r Encounter Details Date Type Department Care Team (Late Contact Info) Description 04/10/2022 Orders Only [facility] MED[facility]INE [address] [place] [address] [phone] Ailin Kumar LPN Social History Tobacco Use [...] Description 09/09/2024 2:00 PM EDT Office Visit [facility] [address] [place] [address] [phone] Danis Morales MD [address] [place] [address] [phone] documented as of this encounter Visit Diagnoses Not on filedocumented in this encounter Care Teams Radio Installer Automobile Relationship Specialty Start Date End Date Danis Morales MD [address] [place] [address] PCP - General Internal Medicine 11/24/13 documented as of this encounter
--- OUTSIDE RECORDS SUMMARY | 2024-06-20 14:59 | XMS_ITS | Encounter Summary ---
Author Organization [employer] [facility] Address [address] [facility] [address] [place] [address] Care Team Providers Care Oracle Hrms Developer Name Role Phone Danis Morales MD Primary Care Provide r Encounter Details Date Type Department Care Team (Late st Contact Info) Description 02/16/2022 Orders Only [facility] [address] [place] [address] Ailin Kumar LPN Social History Tobacco Use [...] Description 09/09/2024 2:00 PM EDT Office Visit [facility] [address] [place] [address] Danis Morales MD [address] [place] [address] documented as of this encounter Visit Diagnoses Not on filedocumented in this encounter Care Teams Oracle Hrms Developer Relationship Specialty Start Date End Date Danis Morales MD [address] [place] [address] PCP - General Internal Medicine 11/24/13 documented as of this encounter
--- OUTSIDE RECORDS SUMMARY | 2024-06-20 14:59 | XMS_ITS | Encounter Summary ---
Author Organization [employer] Address [address] [place] [address] Care Team Providers Care Camp Program Director Name Role Phone Danis Morales MD Primary Care Provide r Encounter Details Date Type Department Care Team (Late st Contact Info) Description 12/25/2022 Orders Only [facility] [address] [place], [place] [phone] Pat Goldberg LPN Social History Tobacco Use [...] Description 09/09/2024 2:00 PM EDT Office Visit [facility] [address] [place] [address] Danis Morales MD [address] [place] [address] documented as of this encounter Visit Diagnoses Not on filedocumented in this encounter Additional Health Concerns Assessment Noted Time PHQ-9 Depression Total Score: 4 06/07/19 23 1:43 PM EDT documented as of this encounter Care Teams Camp Program Director Relationship Specialty Start Date End Date Danis Morales MD [address] [place] [address] PCP - General Internal Medicine 11/24/13 documented as of this encounter
--- OUTSIDE RECORDS SUMMARY | 2024-06-20 14:59 | XMS_ITS | Encounter Summary ---
Author Organization [employer] Address [address] [facility] [address] [place] [address] Care Team Providers Care Manufacturing Plant Technician Name Role Phone Danis Morales MD Primary Care Provide r Reason for Visit * Reason Onset Date Comments Letter for School/Work 11/24/2022 Encounter Details Date Type Department Care Team ([facility] st Contact Info) Description 11/24/2022 Telephone [facility] [address] [place] [address] Danis Morales MD [address] [place] [address] Letter for School/Work Social History Tobacco Use [...] a letter stating he cannot 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 [employer]ER [employer] due to asthma, diabetes, 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 For clarification, contact pt at [phone] documented in this encounter Plan of Treatment Upcoming Encounters Date Type Department Care Team (Late st Contact Info) Description 09/09/2024 2:00 PM EDT Office Visit [facility] [address] [place] [address] Danis Morales MD [address] [place], [place] [phone] documented as of this encounter Visit Diagnoses Not on filedocumented in this encounter Additional Health Concerns Assessment Noted Time PHQ-9 Depression Total Score: 4 06/07/19 23 1:43 PM EDT documented as of this encounter Care Teams Manufacturing Plant Technician Relationship Specialty Start Date End Date Danis Morales MD [address] [place], [place] [phone] PCP - General Internal Medicine 11/24/13 documented as of this encounter
--- OUTSIDE RECORDS SUMMARY | 2024-06-20 14:59 | XMS_ITS | Clinical Summary ---
Author Organization [employer] Address [address] [facility] [address] [place] [address] Care Team Providers Care Process Trainer Name Role Phone Danis Morales MD Primary [...] record from that organization. UltiCare Short Pen Leslie 31G X 8 MM miscIndication s:Type 2 diabetes mellitus without complication, unspecified whether fuel cell designer insulin use ([facility]) USE EVERY EVENING 100 each 3 023 Active Alcohol Swabs (Alcohol Prep) 70 % pads USE FOUR TIMES DAILY 100 each 11 024 Active montelukast (Singulair) 10 MG tablet TAKE 1 TABLET BY MOUTH EVERY EVENING 30 tablet 6 024 Active Continuous Glucose Dehydration Plant Operator (FreeStyle Briana 2 [place]) deviceIndicati ons:Type 2 diabetes mellitus without complication, with long-term current use of insulin ([facility]) Scan sensor every 8 hours 1 each 3 024 Active Continuous Glucose Sensor (FreeStyle Briana 2 Sensor) miscIndication s:Type 2 diabetes mellitus without complication, with long-term current use of insulin ([facility]) Apply 1 sensor every 14 days 2 [...] tablet 3 024 Active TechLite Plus Pen Leslie 32G X 4 MM misc USE ONCE [...] complication, with long-term current use of insulin ([facility]) TAKE 1 TABLET BY MOUTH THREE TIMES DAILY 90 tablet 6 Active insulin glargine (Lantus SoloStar) 100 UNIT/ML penIndications :Type 2 diabetes mellitus without complication, with long-term current use of insulin ([facility]) INJECT 42 UNITS SUBCUTANEOUSLY AT BEDTIME 15 [...] complication, with long-term current use of insulin ([facility]) INJECT 42 SUBCUTANEOUSLY AT BEDTIME 15 mL [...] Active Problems Problem Noted Date Diagnosed Date Ingrowing nail, left great toe 06/10/2024 Assessment & Plan (06/10/2024 2:21 PM EDT): Podiatry referral Benign prostatic hyperplasia (BPH) with straining on urination 06/10/2024 Assessment & Plan (06/10/2024 2:24 PM EDT): Pt with c/o difficulty voiding , nocturia, hesitancy and tenesmus Last PSA 09/27/2023: normal Plan: Urology referral Influenza A 04/08/2024 Assessment & Plan (04/08/2024 [...] GFR 45-59 ml/min 02/07/2024 Assessment & Plan (06/10/2024 2:16 PM EDT): Under the care of Nephrology, last seen 03/07/2024 Assessment & Plan (02/07/2024 2:16 PM EST): [...] Plan (08/23/2023 11:56 AM EDT): Evaluated by Shrinker Dr Ocampo Stress testing 06/2023 Negative for [...] were wnl. Pt currently following with GI. [facility] health care 06/06/2022 Assessment & Plan (06/10/2024 2:20 PM EDT): PSA 09/27/2023 Normal. Colonoscopy: 12/11/2019 pathology showed fragments of TA. He is due for a repeat this year Assessment & Plan (02/07/2024 2:21 PM EST): [...] loss. 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 He was seen by a application integration specialist (Dr Patel) last seen 04/13/2015 he repeated his PFTs that were almost normal so he recommended to DC Advair and Spiriva and keep him on Albuterol prn only Of note pt has had PFT'S and a Methacholine challenge at [facility] that was [place]. Pt is on Advair HFA 250/50, Singulair and Albuterol He is now under the care of Dr Pa Watson, last seen 03/14/2024 Assessment & Plan (09/27/2023 2:39 PM EDT): Doing well, no recent exacerbation Pt has a Hx of a chronic cough for which he had an extensive pulmonary work up. He was seen by a application integration specialist (Dr Patel) last seen 04/13/2015 he repeated his PFTs that were almost normal so he recommended to DC Advair and Spiriva and keep him on Albuterol prn only Of note pt has had PFT'S and a Methacholine challenge at [facility] that was negative. Pt is on Advair HFA 250/50, Singulair and Albuterol He is now under the care of Dr Pa Watson, last seen 09/10/2023 Assessment & Plan (08/23/2023 11:46 AM EDT): Doing well, no recent exacerbation Pt has a Hx of a chronic cough for which he had an extensive pulmonary work up. He was seen by a application integration specialist (Dr Patel) last seen 04/13/2015 he repeated his PFTs that were almost normal so he recommended to DC Advair and Spiriva and keep him on Albuterol prn only Of note pt has had PFT'S and a Methacholine challenge at [facility] that was negative. Pt is on Advair HFA 250/50 and Albuterol He is now under the care of Dr Pa Watson, last seen 02/2023 Assessment & Plan (06/06/2022 1:47 PM EDT): Doing well, no recent exacerbation Pt has a Hx of a chronic cough for which he had an extensive pulmonary work up. He was seen by a application integration specialist (Dr Patel) last seen 04/13/2015 he repeated his PFTs that were almost normal so he recommended to DC Advair and Spiriva and keep him on Albuterol prn only Of note pt has had PFT'S and a Methacholine challenge at [facility] that was negative. Pt is on Advair HFA 250/50 and Albuterol He is now under the care of Dr Pa Watson, last seen 01/2022 Type 2 diabetes mellitus wit h stage 3a chronic kidney disease 03/11/2015 Assessment & Plan (06/10/2024 2:11 PM EDT): Patient is here for a [...] GLP1s due to Gastroparesis Hgb A1c on 06/10/2024 : 7.9 from 7 Eye exam last done by Dr Connor(automotive sales specialist). Microalbumin checked on: 06/20/2023 was: 0.4 [...] on a daily basis Plan: As per [facility] Endocrinology Assessment & Plan (02/07/2024 2:37 PM EST): [...] medications. Eye exam last done by Dr Connor(automotive sales specialist). Microalbumin checked on: 06/20/2023 was: 0.4 [...] on a daily basis Plan: As per [facility] Endocrinology Assessment & Plan (09/27/2023 2:41 PM [...] medications. Eye exam last done by Dr Connor(automotive sales specialist). Microalbumin checked on: 04/19/2020 was: 1.4 [...] on a daily basis Plan: As per [facility] Endocrinology Assessment & Plan (08/23/2023 11:45 AM [...] Endocrinology Eye exam last done by Dr Connor(automotive sales specialist). Microalbumin checked on: 04/19/2020 was: 1.4 [...] on a daily basis Plan: As per [facility] Endocrinology Assessment & Plan (01/04/2023 2:30 PM [...] was asked to schedule an appointment at [facility] Endocrinology, pt insisted that he had one at [facility] but it seems he was confused He was evaluated by our inclusion paraeducator and Feed Elevator Worker Eye exam last done by Dr Connor(automotive sales specialist). Microalbumin checked on: 04/19/2020 was: 1.4 [...] a daily basis Plan: referred back to [facility] Endocrinology Assessment & Plan (10/10/2022 1:36 PM [...] referred back to Endocrinology Plan: referal to inclusion paraeducator and Feed Elevator Worker as well as General Repair Mechanic at [facility] check BG regularly Increase Lantus to 42 units subcutaneous qhs f/u 3 months with me Eye exam was last done on: 08/24/16. by Dr. Dr Connor(automotive sales specialist). Microalbumin checked on: 04/19/2020 was: 1.4 [...] last done on: 08/24/16. by Dr. Dr Connor(automotive sales specialist). Microalbumin checked on: 04/19/2020 was: 1.4 [...] under the care of Thoracic surgery at [facility]. Pt seemed convinced that this is contributing to his chronic cough and wanted to have it excised. Pt is now s/p R VATS/pericardial cyst resection by Dr Melissa Smith at [facility] thoracic on 07/10/2012 Pt was noted to be tachycardic during the post op period and started on Cardizem with good effects. For pain control he is using percocet as needed. Pt was last seen by Dr Smith on: 08/28/2012 Pt was seen again for f/u by jin Bhat at [facility] Thoracic on 11/05/13 who recommended NO further f/u needed Of note pt had a CTA chest on 07/13/2012 that showed a minimal right anterior pneumothorax, streaky opacities on his right lower lobe, atelectasis vs early pna (pt is afebrile, has no cough) and post op subcutaneous emphysema. Depressive disorder 11/07/2011 Assessment & Plan (06/10/2024 2:17 PM EDT): Patient is no longer under the care of Dr Frantz Mead, see med list for current psych meds. He is seeing a psychotherapist her name is janes Ezequiel: [phone] Patient denies any suicidal ideation or thoughts, Patient has crisis numbers and knows to use them if needed He is seeing rn tele Ino Walton , last seen 05/22/2024 On Zolpidem and Zoloft Assessment & Plan (02/07/2024 2:43 PM EST): Patient is no longer under the care of Dr Frantz Mead, see med list for current psych meds. He is seeing a psychotherapist her name is janes Nieves: [phone] Patient denies any suicidal ideation or thoughts, [...] organization. Date Type Department Care Team Description 06/10/2024 2:00 PM EDT Office Visit [address] [address] Danis Morales MD Type 2 diabetes mellitus with stage 3a chronic kidney disease, with long-term current use of insulin ([facility]) (Primary Dx); Eosinophilic asthma; CKD stage 3a, GFR 45-59 ml/min (CMS/HCC); Depressive disorder; Ingrowing nail, left great toe; Preventative health care; Benign prostatic hyperplasia (BPH) with straining on urination 06/10/2024 Travel 06/06/2024 Orders Only GENERIC EXTERNAL DATA DEPARTMENT Provider, Generic External Data 05/27/2024 Patient Outreach [address] [address] Roberto Benitez 05/27/2024 Patient Outreach [address] [address] Danis Morales MD Care Coordination (CHW outreach for SDOH food needs-referral completed /) 05/27/2024 Patient Outreach [address] [address] Danis Morales MD Pre-visit Planning (SDOH Screening positive and Tobacco screening negative) 05/21/[address] [address] Danis Morales MD Chart Prep 05/21/2024 Refill [facility] MED & PEDS [address] [place] [address] Danis Morales MD Type 2 diabetes mellitus without complication, with long-term current use of insulin ([facility]) 04/16/2024 Orders Only [facility] External Provider, [facility] 04/07/2024 2:20 PM EST Office Visit [facility] WALK-IN CENTER [address] [place] [address] Kathy Hernandez MD Influenza A (Primary Dx) 03/25/2024 Refill [facility] MEDICINE [address] [place] [address] Ino Walton, PMHNP Depressive disorder 03/23/2024 Refill [facility] MEDICINE [address] [place] [address] Danis Morales MD Type 2 diabetes mellitus without complication, with long-term current use of insulin ([facility]) from Last 3 Months Immunizations Name Administration [...] Years Used Date Smoking Tobacco: Former Cigarettes Q uit: 06/11/2011 Passive Smoke Exposure: Past Smokeless Tobacco: Never Tobacco Cessation:Counseling Given: Not Answered Depression Answer Date Recorded Patient Health Questionnaire-9 Score 3 06/10/2024 Patient Health Questionnaire-9 Score 3 06/10/2024 Last PHQ-9: Questionnaire Data Not on file 0 06/10/2024 Housing Stability Answer Date Recorded What is your housing situation today? I have kayleighdeni hutton 07/10/[address] you [...] Answer Date Recorded Patient Health Questionnaire-2 Score 1 06/10/2024 Internet Access Answer Date Recorded Internet Access [...] Sign Reading Time Taken Comments Blood Pressure 115/79 06/10/2024 1:52 PM EDT Pulse 105 06/10/2024 1:52 PM EDT Temperature 36.1 ??C (96.9 ??F) 06/10/2024 1:52 PM ED T Respiratory Rate 20 06/10/2024 1:52 PM EDT Oxygen Saturation 98% 06/10/2024 1:52 PM EDT Inhaled Oxygen Concentration - - Weight 90.6 kg (199 lb 12.8 oz) 06/10/2024 1:52 PM EDT Height 175.3 cm (5' 9 ) 06/10/2024 1:52 PM EDT Body Mass Index 29.51 06/10/2024 1:52 PM EDT Plan of Treatment Upcoming Encounters Date Type Department Care Team (Late st Contact Info) Description 09/09/2024 2:00 PM EDT Office Visit [facility] MEDICINE [address] [place], [place] [phone] Danis Morales MD [address] [place] [address] Health Maintenance Due Date Last Done Comments CT Colonography 1960 FIT DNA/Cologuard 1960 FIT 1960 FOBT 1960 Sigmoidoscopy 1960 Diabetes: Foot Exam 1968 Eye Exam 1968 RSV Patients and Patients Aged 60 years or older (1 - Risk 60-74 years 1-dose series) 2018 COVID-19 Vaccine ( season) 2023 02/23/2021, 05/21/2020, 04/23/2020 Lipid Panel 08/26/2024 08/27/2023, 05/28, 04/25/2021, Additional history exists Diabetes: Hemoglobin A1C 09/09/2024 025, 02/07/2024, 08/23/2023, Additional history exists Colonoscopy 12/10/2024 12/11/2019 Colorectal Cancer Screening 12/10/2024 SDOH Screening 05/27/2025 05/27/2024 Alcohol/Substance Use Screening 06/10/2025 06/10/2024 Depression Screening 06/10/2025 06/10/2024, 04/15/20 25 Tobacco Screening 06/10/2025 06/10/2024 DTaP/Tdap/Td Vaccines (2 - Td or Tdap) [...] Procedure Name Priority Date/Time Associated Diagnosis Comments POCT GLYCATED HEMOGLOBIN, TOTAL Routine 06/10/2024 2:09 PM EDT Type 2 diabetes mellitus with stage 3a chronic kidney disease, with long-term current use of insulin ([facility]) POCT GLUCOSE Routine 06/10/2024 2:00 PM EDT Type 2 diabetes mellitus with stage 3a chronic kidney disease, with long-term current use of insulin ([facility]) CREATININE, SERUM Routine 06/06/2024 3:1 4 PM EDT UREA NITROGEN (BUN) Routine 06/06/2024 3 :14 PM EDT ELECTROLYTE PANEL Routine 06/06/2024 3:1 4 PM EDT SARS COV2/INFLUENZA A/B AND RSV RNA QL [...] Routine 04/07/2024 2:03 PM EST Influenza A LIPID PANEL, STANDARD Routine 08/27/2023 9:15 AM EDT Type 2 diabetes mellitus without complication, with long-term current use of insulin ([facility]) HEPATITIS C AB W/REFL TO HCV RNA, QN, PCR Routine 06/19/2022 8:29 AM EDT Mixed hyperlipidemia HM COLONOSCOPY Routine 12/11/2019 from Last 3 Months or Most Recently Relevant to Health Maintenance Results * (ABNORMAL) POCT HGB A1C (06/10/2024 2:09 PM EDT) Hemoglobin A1C 7.9(A) 4.0 - 6.0 % QC Media Lot # [id number] Lot# Expiration Date Blood 06/10/2024 2:09 PM EDT Danis Solomon MD POINT OF CARE TEST EN TER/EDIT ORDERABLES Final Result * (ABNORMAL) POCT Glucose (06/10/2024 2:00 PM EDT) Glucose Blood, POC 201(A) 60 - 200 mg/dL QC Media Lot # [id number] Lot# Expiration Date [id number] Blood Capillary blood specimen / Unknown 06/10/2024 2:00 PM EDT Danis Solomon MD POINT OF CARE TEST EN TER/EDIT ORDERABLES Final Result * Creatinine, Serum (06/06/2024 3:14 PM EDT) Creatinine, Serum 1.11 0.5 - 1.4 mg/dL [facility] Estimated Glomerular Filt Rate >60 [facility] Comment:Chronic Kidney Disea se: Estimated GFR < 60 mL/min/[id number] Kidney Disease: Estimated GFR < 15 mL/min/1.73m2 06/06/2024 3:14 PM EDT 06/06/2024 3:14 PM EDT Generic External Data Provider LAB BLOOD ORDERAB LES Final Result Performing Organization Address City/[facility]/ZIP Co de Phone Number [facility] [address] [place] [phone] * (ABNORMAL) BUN (Blood Urea Nitrogen) (06/06/2024 3:14 PM EDT) Urea Nitrogen (BUN) 21(H) 9 - 16 mg/dL [facility] 06/06/2024 3:14 PM EDT 06/06/2024 3:14 PM EDT Generic External Data Provider LAB BLOOD ORDERAB LES Final Result Performing Organization Address [facility]/ZIP Co de Phone Number [facility] [address] [place] [phone] * Electrolyte Panel (06/06/2024 3:14 PM EDT) Sodium 140 135 - 145 mmol/L [facility] Potassium 4.3 3.3 - 5.1 mmol/L [facility] Chloride 107 96 - 108 mmol/L [facility] Carbon Dioxide 24 22 - 29 mmol/L [facility] Anion Gap 13 12 - 20 [facility] 06/06/2024 3:14 PM EDT 06/06/2024 3:14 PM EDT Generic External Data Provider LAB BLOOD ORDERAB LES Final Result Performing Organization Address [facility] Co de Phone Number [facility] [address] [place] [phone] * SARS-CoV-2 RNA, Influenza A/B, and RSV RNA, Ql NAAT (04/16/2024 3:04 PM EST) Influenza A PCR NEGATIVE Negative [facility] Influenza B PCR NEGATIVE Negative [facility] Resp Syncy Virus RNA Qual PCR NEGATIVE Negative [facility] SARS COV2 PCR NEGATIVE Negative [facility] Comment:All test results mus t be [...] use by authorized laboratories.Testing performed on the [employer] GeneXpert utilizingreal-time RT-PCR.All SARS CoV2 and positive influenza A/B results arereported to [facility]. 04/16/2024 3:04 PM EST 04/16/2024 3:07 PM EST Generic External Data Provider LAB MICROBIOLOGY - GENERAL ORDERABLES Final Result Performing Organization Address [facility]/ZIP Co de Phone Number [facility] [address] [place] [phone] * XR Chest 2 Views (04/16/2024 2:50 PM EST) Anatomical Region Laterality Modality Chest Radiographic Lalitha ging 04/16/2024 2:50 PM EST Narrative 04/16/2024 3:13 PM EST ? [facility] ?[address] ?[place] [address] ?XRay Report ? Signed ? Patient: Nadia Herman,Sancho L ?MR#: [id number] ?? [id number] ? : 1960 ?Acct:[id number] ? Age/Sex: 63 / M ?ADM Date: 04/16/24 ? Loc: HO.ED ? Attending Dr: ? Ordering Physician: Yves Abdul ?? Date of Service: 04/16/24 ?? Procedure(s): XR chest 2V ?? Accession Number(s): [id number] ? cc: Danis Laurent MD; Yves Abdul [...] DD/ 1450 ? TD/TT: 04/16/24 1455 ? Retort Cooler: ? Procedure Note Ross Islas - 04/16/[address] [address] XRay Report Signed Patient: Sancho Loya LMR#: [id number] : 9Acct:[id number] Age/Sex: 63 / MADM Date: 04/16/24 Loc: HO.ED Attending Dr: Ordering Physician: Yves Abdul Date of Service: 04/16/24 Procedure(s): XR chest 2V Accession Number(s): [id number] cc: Danis Laurent MD; Yves Abdul EXAMINATION: [...] Doug Durán MD 04/16/2024 03:10 PM EST RP Dictated By: Doug Durán MD Signed By: <Electronically signed by Doug Durán MD in OV> 04/16/24 1510 DD/ 1450 TD/TT: 04/16/24 1455 Retort Cooler: [facility] External Provider IMG XR PROCEDURES Final Result * Influenza B (ID NOW Rapid Molecular) (04/07/2024 2:03 PM EST) [facility] Influenza B Negative Negative, Indeterminate [facility] Swab 04/07/2024 2:03 PM EST Kathy Hernandez MD POINT OF CARE TEST ENTER /EDIT ORDERABLES Final Result [facility] [address] [place] [phone] * (ABNORMAL) Influenza A (ID NOW Rapid Molecular) (04/07/2024 2:03 PM EST) Pathologist [facility] Influenza A Positive( A) Negative, Indeterminate [facility] Swab 04/07/2024 2:03 PM EST Kathy Hernandez MD POINT OF CARE TEST ENTER /EDIT ORDERABLES Final Result [facility] [address] [place] [phone] * POCT Rapid COVID Ag (04/07/2024 2:03 PM EST) [facility] Rapid COVID Ag Negative Swab 04/07/2024 2:03 PM EST Kathy Hernandez MD POINT OF CARE TEST ENTER /EDIT ORDERABLES Final Result * POCT rapid strep A manually resulted (04/07/2024 2:03 PM EST) [facility] Rapid Strep A Screen Negative Negative, None Detected Swab 04/07/2024 2:03 PM EST Kathy Hernandez MD POINT OF CARE TEST ENTER /EDIT ORDERABLES Final Result * (ABNORMAL) Lipid Panel, Standard (08/27/2023 9:15 AM EDT) [facility] Triglycerides 112 <150 mg/dL [facility] Comment:Desirable Triglyceri de: less than 150 mg/dLBorderline High Triglyceride 150-199 mg/dLHigh Triglyceride: 200-499 mg/dLVery High Triglyceride: greater than or equal to 5OO mg/dL Cholesterol 111 <200 mg/dL [facility] Comment:Desirable Cholestero l: less than 200 mg/dLBorderline High Cholesterol: 200-239 mg/dLHigh Cholesterol: greater than 239 mg/dL LDL Cholesterol Calculated 51 <100 mg/dL [facility] Comment:Desirable LDL: less than 100 mg/dLNear Optimal/Above Optimal LDL: 110- 129 mg/dLBorderline High LDL: 130-159 mg/dLHigh LDL: 160-189 mg/dLVery High LDL: greater than or equal to 190 mg/dL HDL Cholesterol 38(L) >40 mg/dL [facility] Comment:Desirable HDL: great er than 40 mg/dL Note: This HDL assay may give artificially low results in patients with liver disease. Blood Venous blood specimen / Unknown 08/27/2023 9:15 AM EDT 08/27/2023 11:39 AM EDT Danis Solomon MD LAB BLOOD ORDERABLES Final Result [facility] [address] [place] [phone] * Hepatitis C Antibody with Reflex to HCV, RNA, Quantitative, Real-Time PCR (06/19/2022 8:29 AM EDT) Hepatitis C Antibody NON-REACT JIMY NON-REACT JIMY [facility] Index 0.10 <1.00 [facility] Comment: HCV antibody was non-reactive. There is no laboratory evidence of HCV infection. In most cases, no further action is required. However, if recent HCV exposure is suspected, a test for HCV RNA (test code 86106) is suggested. For additional information please refer to http://education.Sp[employer]/faq/SFS84h7 (This link is being provided for informational/ educational purposes only.) Blood Venous blood specimen / Unknown 06/19/2022 8:29 AM EDT 06/19/2022 8:29 AM EDT Narrative [facility] - 06/19/2022 10:33 PM EDT FASTING:YES FASTING: YES Danis Solomon MD LAB BLOOD ORDERABLES Final Result [facility] [address] [place] [phone] [facility] [address] [place] [phone] * Hm Colonoscopy (12/11/2019) Colonoscopy Normal Normal 12/11/2019 Jessica Montana - 12/11/2019 10:39 AM EDT Recommended 5 year follow up due to history of tubular adenoma ( see scanned report )[facility] us Historical Provider HEALTH MAINTENANCE Final Result from Last 3 Months or Most Recently Relevant to Health Maintenance Insurance [facility] Member Subscriber Plan / Payer (Ef fective 2023-Present) Name:Sancho Zuniga Tanya Relation to Subscriber:Self Name:Sancho Zuniga Tanya Payer ID:Not on file Group ID:[id number] Type:Not on file Address: [address] [employer] [place] [id number] Care Teams Process Trainer Relationship Specialty Start Date End Date Danis Morales MD [address] [place] [address] PCP - General Internal Medicine 11/24/13
--- OUTSIDE RECORDS SUMMARY | 2024-06-20 14:59 | XMS_ITS | Encounter Summary ---
Author Organization [employer] [facility] Address [address] 7t [place] [address] Care Team Providers Care Forklift Wheel Loader Name Role Phone Danis Morales MD Primary Care Provide r Encounter Details Date Type Department Care Team (Late Contact Info) Description 06/28/2022 Abstract [facility] [address] [place] [phone] Danis Morales MD [address] [place] [address] [phone] Social History Tobacco Use Types Packs/Day Years [...] Department Care Team (Late Contact Info) Description 09/09/2024 2:00 PM EDT Office Visit [facility] [address] [place] [address] [phone] Danis Morales MD [address] [place] [address] documented as of this encounter Procedures Procedure Name Priority Date/Time Associated Diagnosis Comments COLONOSCOPY Routine 12/11/2019 documented in this encounter Results * Colonoscopy (12/11/2019) Colonoscopy Normal Normal 12/11/2019 Narrative Mandy Jessica - 12/11/2019 10:39 AM EDT Recommended 5 year follow up due to history of tubular adenoma ( see scanned report )[facility] Historical Provider HEALTH MAINTENANCE Final Result documented in this encounter Visit Diagnoses Not on filedocumented in this encounter Additional Health Concerns Assessment Noted Time PHQ-9 Depression Total Score: 4 06/07/19 23 1:43 PM EDT documented as of this encounter Care Teams Forklift Wheel Loader Relationship Specialty Start Date End Date Danis Morales MD [address] [place] [address] PCP - General Internal Medicine 11/24/13 documented as of this encounter
--- OUTSIDE RECORDS SUMMARY | 2024-06-20 14:59 | XMS_ITS | Encounter Summary ---
Author Organization [employer] [facility] Address [address] [place] [address] 7t [place] [address] Care Team Providers Care Machine Tool Electrician Name Role Phone Danis Morales MD Primary Care Provide r Encounter Details Date Type Department Care Team (Late st Contact Info) Description 09/07/2022 Orders Only [facility] [address] [place] [address] [phone] Ailin Kumar LPN Social History Tobacco Use [...] Description 09/09/2024 2:00 PM EDT Office Visit [facility] [address] [place] [address] [phone] Danis Morales MD [address] [place], [place] [phone] documented as of this encounter Visit Diagnoses Not on filedocumented in this encounter Additional Health Concerns Assessment Noted Time PHQ-9 Depression Total Score: 4 06/07/19 23 1:43 PM EDT documented as of this encounter Care Teams Machine Tool Electrician Relationship Specialty Start Date End Date Danis Morales MD [address] [place] [address] PCP - General Internal Medicine 11/24/13 documented as of this encounter
== END 2024-06-20 14:40 | disposition home or self-care (01) ==
LOC: HO.HKA 14:18
PROVIDERS: PCP Internal Medicine; Visit Provider Internal Medicine Nephrology
DX: I10 Essential (primary) hypertension (principal); N18.31 Chronic kidney disease, stage 3a
CPT/HCPCS: 99214

== ENCOUNTER → 2024-06-20 14:18 | Outpatient (BNVA) | payer OTHER, SELFPAY | PROVIDERS: PCP Internal Medicine; Visit Provider Internal Medicine Nephrology | DX: E11.22 Type 2 diabetes mellitus with diabetic chronic kidney disease (principal); I12.9 Hypertensive chronic kidney disease with stage 1 through stage 4 chronic kidney disease, or unspecified chronic kidney disease; N18.31 Chronic kidney disease, stage 3a | CPT/HCPCS: 99212 ==

== ENCOUNTER 2024-09-08 10:49 | Outpatient (AMB) | payer OTHER, SELFPAY ==
--- NOTE | 2024-09-07 22:35 | A.OFFVIS_ITS ---
Intake Visit Reasons: BPH Intake Note: New patient presents today for initial visit for BPH Urology Medication:None Blood Thinner:Aspirin Antibiotic Allergies:None Wad Printing Machine Operator Required: Yes Wad Printing Machine Operator Name: Kayleigh araujo Information Interpreted: non-clinical & clinical Allergies No Known Allergies Allergy (Verified 09/08/24 10:56) Medication List - Last Reconciled 09/08/24 by Letty Hill MD albuterol sulfate 2.5 mg (3 mL) inhalation QID PRN albuterol sulfate 90 mcg/actuation (Ventolin HFA) 2 inhalations inhalation Q4H 30 days aspirin 81 mg PO DAILY atorvastatin 20 mg PO BEDTIME benzonatate 100 mg PO TID PRN blood sugar diagnostic (FreeStyle Lite Strips) As directed blood sugar diagnostic (FreeStyle Lite Strips) As directed three times a day empagliflozin (Jardiance) 25 mg PO DAILY famotidine 40 mg PO BEDTIME fluticasone propion-salmeterol 115-21 mcg/actuation (Advair HFA) 2 puffs inhalation Q12H gabapentin 300 mg PO BID insulin glargine 36 units subcut BEDTIME lancets (FreeStyle Lancets) Three times a day levalbuterol HCl 1.25 mg (3 mL) inhalation BID 90 days loratadine 10 mg PO DAILY lorazepam 0.5 mg PO DAILY melatonin 5 mg PO BEDTIME PRN 30 days metformin 1,000 mg PO BID metoclopramide HCl 10 mg PO TID montelukast 10 mg PO DAILY 90 days nebulizers As directed pantoprazole 40 mg PO QAM pen needle, diabetic (UltiCare Pen Needle) As directed pioglitazone 30 mg PO DAILY@1200 prednisone 50 mg PO DAILY repaglinide 0.5 mg PO TID sennosides (senna) 17.2 mg (2 x 8.6 mg) PO BEDTIME sertraline 200 mg PO DAILY simethicone 180 mg PO QID PRN sodium chloride 0.9% 3 mL inhalation BID sodium chloride 0.9% 2.5 mL inhalation BID 30 days 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 Mother Hx of breast cancer Sister Diabetes Maternal Aunt Heart problem Social History Household Members: Spouse Housing: Apartment Alcohol intake: unknown Patient Tobacco Use Status: Former Tobacco user Years Smoked: 20 yrs ( quit 8 years ago) Second Hand Smoke Exposure: Yes service: No Current occupational status: retired Review of Systems Const All systems reviewed & are unremarkable except as noted in HPI and below Reports no additional complaints Eyes Reports no additional complaints ENT Reports no additional complaints Card Reports no additional complaints Resp Reports no additional complaints GI Reports no additional complaints Reports as per HPI Musc Reports no additional complaints Skin/Breast Reports system reviewed and no additional complaints, except as documented Neuro Reports no additional complaints Psych Reports no additional complaints Endo Reports no additional complaints Neal/Lymph Reports no additional complaints Aller/Immun Reports no additional complaints Results AMB Urinalysis, Automated UA Leukoctes 0 Mariah/uL Last Edit by Francisca Reilly on 09/08/24 14:34 UA Nitrite Negative Last Edit by Francisca Reilly on 09/08/24 14:34 UA Urobilinogen 3.5 mg/dL Last Edit by Francisca Reilly on 09/08/24 14:34 UA Protein 0 mg/dL Last Edit by Francisca Reilly on 09/08/24 14:34 UA pH 6.0 Last Edit by Francisca Reilly on 09/08/24 14:34 UA Blood 0 René/uL Last Edit by Francisca Reilly on 09/08/24 14:34 UA Specific [place] 1.010 Last Edit by Francisca Reilly on 09/08/24 14:34 UA Ketone Negative Last Edit by Francisca Reilly on 09/08/24 14:34 UA Bilirubin 0 mg/dL Last Edit by Francisca Reilly on 09/08/24 14:34 UA Glucose 60 mg/dL Last Edit by Francisca Reilly on 09/08/24 14:34 Results Reviewed Results Reviewed: Date of Service: 02/15/24 US RETROPERITONEAL LIMITED (RENAL ONLY) CLINICAL INFORMATION: Acute kidney failure. COMPARISON: CT 10/09/2012 TECHNIQUE: Sonographic evaluation of the kidneys. FINDINGS: RIGHT KIDNEY: 10.8 x 5.1 x 5.3 cm (SAG x AP x TRV). The kidney is normal in size, contour, and echogenicity. Renal cortical thickness is normal. No calculi or focal parenchymal lesions. No hydronephrosis. LEFT KIDNEY: 10.9 x 4.9 x 5.0 cm (SAG x AP x TRV). The kidney is normal in size, contour, and echogenicity. Renal cortical thickness is normal. No calculi or focal parenchymal lesions. No hydronephrosis. US/US renal BI IMPRESSION: Normal renal ultrasound. No hydronephrosis. Assessment & Plan Assessment & Plan (1) BPH loc w urin obs/LUTS: Code(s): N40.1 - Benign prostatic hyperplasia with lower urinary tract symptoms Category: Medical (2) Slowing of urinary stream: Code(s): R39.198 - Other difficulties with micturition Category: Medical (3) Screening PSA (prostate specific antigen): Code(s): Z12.5 - Encounter for screening for malignant neoplasm of prostate Category: Medical Plan Tamsulosin 0.4 mg, ultrasound bladder and prostate Orders: Orders AMB Urinalysis Automated Today Z13.9 - Encounter for screening, unspecified US bladder Today N40.1 - Benign prostatic hyperplasia with lower urinary tract symptoms, R39.198 - Other difficulties with micturition PSA,Total (Free>4and<10) Today Z12.5 - Encounter for screening for malignant neoplasm of prostate Medications: New tamsulosin (Flomax) 0.4 mg PO BEDTIME 30 caps 4RF Coding Level of Care Code New Pt Level 4 (44917) Diagnoses BPH loc w urin obs/LUTS N40.1 Slowing of urinary stream R39.198 Screening PSA (prostate specific antigen) Z12.5
--- OUTSIDE RECORDS SUMMARY | 2024-09-08 11:46 | XMS_ITS | Encounter Summary ---
Author Organization [employer] Address [address] 7t [place] [address] Care Team Providers Care Material Scheduler Name Role Phone Danis Morales MD Primary Care Provide r Encounter Details Date Type Department Care Team (Late st Contact Info) Description 12/25/2022 Orders Only [facility] [address] [place], [place] [phone] Pat Goldberg LPN Social History Tobacco Use [...] Description 09/09/2024 2:00 PM EDT Office Visit [facility] [address] [place] [address] Danis Morales MD [address] [place] [address] documented as of this encounter Visit Diagnoses Not on filedocumented in this encounter Additional Health Concerns Assessment Noted Time PHQ-9 Depression Total Score: 4 06/07/19 23 1:43 PM EDT documented as of this encounter Care Teams Material Scheduler Relationship Specialty Start Date End Date Danis Morales MD [address] [place] [address] PCP - General Internal Medicine 11/24/13 documented as of this encounter
--- OUTSIDE RECORDS SUMMARY | 2024-09-08 11:46 | XMS_ITS | Clinical Summary ---
Author Organization [address] [facility] Address [address] [place] [address] Phone Care Team Providers Care Rn Triage Name Role Phone Danis Laurent MD Primary Care Provi everardo Social History Tobacco Use Types Packs/Day Years Used Date Smoking Tobacco: Never Assessed Sex and Gender Information Value Date Recorded Sex Assigned at Not on file Legal Sex Male 12:14 AM EST Gender Identity Not on file Sexual Orientation Not on file Plan of Treatment Upcoming Encounters Date Type Department Care Team ([facility] st Contact Info) Description 09/15/2024 1:30 PM EDT Consult Orthopedic Surgery - [place] [address] [phone] Kyle Kimball, DPMaria Teresa [address] [address] Health Maintenance Due Date Last Done Comments DTaP,Tdap,and Td Vaccines (1 - Tdap) 1977 Pneumococcal Vaccine: 50+ Ye ars (1 of 1 - PCV) 2008 Zoster Vaccines (1 of 2) 2008 COVID-19 Vaccine ( - 2023-2 5 season) 2023 Abdominal Aortic Aneurysm (A AA) Screen 07/03/2024 Cholesterol Screening (Lipid Panel) 07/03/2024 Colorectal Cancer Screening: Colonoscopy 07/03/2024 Depression Screening 07/03/2024 Falls Risk Assessment 07/03/2024 Hepatitis C Screening 07/03/2024 Medicare Annual Wellness Visit 07/03/2024 Social Influencers of Health Screening 07/03/2024 Influenza Vaccine (#1) 2024 RSV Immunization Adult Patie nts (1 - 1-dose 75+ series) 2033 HIB Vaccines Aged Out No longer eligi [...] on patient's age to complete this topic MMR Vaccines Aged Out No longer eligi ble based on patient's age to complete this topic Meningococcal ACWY Vaccine Aged Out N o longer eligible based on patient's age to complete this topic Meningococcal B Vaccine Aged Out No l onger eligible based on patient's age to complete this topic RSV Immunization Patients Un everardo 20 months Aged Out No longer eligible b ased on patient's age to complete this topic Varicella Vaccines Aged Out No longer eligible based on patient's age to complete this topic Insurance [facility] MEDICARE Member Subscriber Plan / Payer (Ef fective 2023-Present) Name:SANDEE SANCHO Relation to Subscriber:Self Name:Sancho Zuniga Payer ID:[id number] Group ID:[id number] Type:Not on file Address: [place] [address] [address] [phone] Care Teams Rn Triage Relationship Specialty Start Date End Date Danis Laurent MD [address] [place] [id number] PCP - General Internal Medicine 07/03/24
== END 2024-09-08 11:42 | disposition home or self-care (01) ==
LOC: HO.HUSH 10:50
PROVIDERS: PCP Internal Medicine; Visit Provider Urology
DX: Z13.9 Encounter for screening, unspecified (principal)

== ENCOUNTER → 2024-09-08 10:49 | Outpatient (BNVA) | payer OTHER, SELFPAY | PROVIDERS: PCP Internal Medicine; Visit Provider Urology | DX: N40.1 Benign prostatic hyperplasia with lower urinary tract symptoms (principal) | CPT/HCPCS: 81003 ==

== ENCOUNTER 2024-09-12 11:45 | Outpatient (REF) | payer OTHER, SELFPAY ==
--- OUTSIDE RECORDS SUMMARY | 2024-09-12 12:03 | XMS_ITS | Encounter Summary ---
Author Organization [employer] Address [address] 7[address] [place] [address] Care Team Providers Care Wafer Production Lead Worker Name Role Phone Danis Morales MD Primary Care Provide r Encounter Details Date Type Department Care Team (Late st Contact Info) Description 12/25/2022 Orders Only [facility]S [address] [place], [place] [phone] Pat Goldberg LPN Social History Tobacco Use [...] as of this encounter Plan of Treatment Not on file documented as of this encounter Visit Diagnoses Not on filedocumented in this encounter Additional Health Concerns Assessment Noted Time PHQ-9 Depression Total Score: 4 06/07/19 23 1:43 PM EDT documented as of this encounter Care Teams Wafer Production Lead Worker Relationship Specialty Start Date End Date Danis Morales MD [address] [place] [phone] PCP - General Internal Medicine 11/24/13 documented as of this encounter
--- OUTSIDE RECORDS SUMMARY | 2024-09-12 12:03 | XMS_ITS | Clinical Summary ---
Author Organization [address] [facility] Address [address] [place] [address] Phone Care Team Providers Care Cracker And Cookie Machine Operator Name Role Phone Danis Laurent MD Primary Care Provi everardo Social History Tobacco Use Types Packs/Day Years Used Date Smoking Tobacco: Never Assessed Sex and Gender Information Value Date Recorded Sex Assigned at Not on file Legal Sex Male 12:14 AM EST Gender Identity Not on file Sexual Orientation Not on file Plan of Treatment Upcoming Encounters Date Type Department Care Team ([facility] st Contact Info) Description 09/15/2024 1:30 PM EDT Consult Orthopedic Surgery - [place] [address] [phone] Kyle Kimball, DPMaria Teresa [address] [address] Health Maintenance Due Date Last Done Comments [...] patient's age to complete this topic Insurance [facility] MEDICARE Member Subscriber Plan / Payer (Ef fective 2023-Present) Name:SANDEE SANCHO Relation to Subscriber:Self Name:Sancho Zuniga Payer ID:[id number] Group ID:[id number] Type:Not on file Address: [place] [address] [address] [phone] Care Teams Cracker And Cookie Machine Operator Relationship Specialty Start Date End Date Danis Laurent MD [address] [place] [phone] PCP - General Internal Medicine 07/03/24
[2024-09-12 13:35] LABS: Cholesterol 120 mg/dL (<200); HDL Cholesterol 43 mg/dL (>40); Triglycerides 111 mg/dL (<150)
[2024-09-12 15:01] LABS: PSA,Total (Free>4and<10) 0.90 ng/mL (0.00-4.00)
== END 2024-09-12 11:46 | disposition home or self-care (01) ==
LOC: HO.HHCL 11:45
PROVIDERS: Urology; PCP Internal Medicine; Visit Provider Internal Medicine
DX: E11.22 Type 2 diabetes mellitus with diabetic chronic kidney disease (principal); Z12.5 Encounter for screening for malignant neoplasm of prostate; N18.31 Chronic kidney disease, stage 3a; Z79.4 Long term (current) use of insulin; E78.2 Mixed hyperlipidemia
CPT/HCPCS: 36415; 80061; 84153

== ENCOUNTER 2024-10-10 14:04 | Outpatient (REF) | payer OTHER, SELFPAY ==
--- OUTSIDE RECORDS SUMMARY | 2024-10-10 14:06 | XMS_ITS | Clinical Summary ---
Author Organization 175 [facility] Address [address] [place] [address] Phone Care Team Providers Care Visual Merchandising Associate Name Role Phone Danis Laurent MD Primary Care Provi everardo Allergies Active Allergy Reactions Criticality Noted Date Comments Iodinated Contrast Media Hives 09/15/2024 Other Reaction(s): throat felt tight pt came into [facility] 5 days post injection-states that day after injection had a tight throat and hives on his back(did not eat any new foods or start any new meds) Medications ciclopirox (PENLAC) 8 % solution Apply topically at bedtime. Apply over nail and surrounding skin. Apply daily over previous coat. After seven (7) days, may remove with alcohol and continue cycle. 6.6 mL 5 12/15/19 25 Active Encounters Date Type Department Care Team Description 09/15/2024 1:30 PM EDT Consult Orthopedic Surgery - [place] [address] [facility] [address] [place] [phone] Kyle Kimball DPM Controlled type 2 diabetes with neuropathy (CMS/HCC V24, CMS/HCC V28) (Primary Dx); Pain in toes of both feet; Arthritis of both feet; Dermatophytosis, nail from Last 3 Months Social History Tobacco Use Types Packs/Day Years Used Date Smoking Tobacco: Never Assessed Sex and Gender Information Value Date Recorded Sex Assigned at Not on file Legal Sex Male 12:14 AM EST Gender Identity Not on file Sexual Orientation Not on file Plan of Treatment Upcoming Encounters Date Type Department Care Team ([facility] Contact Info) Description 12/16/2024 1:00 PM EDT Office Visit Orthopedic Surgery - [place] 250 175 [facility] 250 [place] [phone] Kyle Kimball, JOLANTA [address] [facility] [address] [place] [address] Health Maintenance Due Date Last Done Comments Diabetes: Annual GFR (Glomerular Filtration Rate) 1958 Diabetes: Annual Foot Exam 1968 Diabetes: Annual Retina Eye Exam 1968 RSV Immunization Adult Patients (1 - Risk 60-74 years 1-dose series) 2018 COVID-19 Vaccine ( season) 2023 02/23/2021, 05/21/2020, 04/23/2020 Depression Screening 02/27/2024 Abdominal Aortic Aneurysm (AAA) Screen 07/03/2024 Colorectal Cancer Screening: Colonoscopy 07/03/2024 Falls Risk Assessment 07/03/2024 Medicare Annual Wellness Visit 07/03/2024 Social Influencers of Health Screening 07/03/2024 Diabetes: Annual Urine Albumin-Creatinine Ratio (uACR) 09/15/2024 Influenza Vaccine (#1) 2024 , 12/05/2022, 12/23/2021, Additional history exists Diabetes: Blood Sugar Control Test (HGBA1C) 03/12/2025 09/09/2024 DTaP,Tdap,and Td Vaccines (3 - Td or Tdap) 05/04/2027 05/03/2017, 11/06/2006 Cholesterol Screening (Lipid Panel) 09/12/2029 09/12/2024 Zoster Vaccines Completed 06/27/2021, 04/25/2021 Hepatitis C Screening Completed 06/19/2022 Pneumococcal Vaccine: 50+ Years Completed 09/10/2023, 05/09/2016, 01/17/2009, Additional history exists HIB Vaccines Aged Out [...] to complete this topic RSV Immunization Patients Under 20 months Aged Out No longer eligible based on patient's age to complete this topic Varicella Vaccines Aged Out No longer eligible based on patient's age to complete this topic Insurance [facility] MEDICARE Member Subscriber Plan / Payer (Ef fective 2023-Present) Name:SANCHO IGNACIO Relation to Subscriber:Self Name:Sancho Ignacio Payer ID:[id number] Group ID:[id number] Type:Not on file Address: [place] [address] [address] [phone] Care Teams Visual Merchandising Associate Relationship Specialty Start Date End Date Danis Laurent MD [address] [place] [address] PCP - General Internal Medicine 07/03/24
--- OUTSIDE RECORDS SUMMARY | 2024-10-10 14:06 | XMS_ITS | Encounter Summary ---
Author Organization [employer] Address [address] 7[address] [place] [address] Care Team Providers Care Patternmaker Sample Name Role Phone Danis Morales MD Primary Care Provide r Encounter Details Date Type Department Care Team (Late st Contact Info) Description 12/25/2022 Orders Only [facility]S [address] [place], [place] [phone] Pat Goldberg LPN Social History Tobacco Use [...] documented as of this encounter Care Teams Patternmaker Sample Relationship Specialty Start Date End Date Danis Morales MD [address] [place] [id number] PCP - General Internal Medicine 11/24/13 documented as of this encounter
[2024-10-10 15:05] LABS: Anion Gap 17 (12-20); Blood Urea Nitrogen 21 mg/dL (9-16); Carbon Dioxide 22 mmol/L (22-29); Chloride 104 mmol/L (96-108); Estimated Glomerular Filt Rate > 60; Potassium 4.5 mmol/L (3.3-5.1); Sodium 138 mmol/L (135-145)
== END 2024-10-10 14:05 | disposition home or self-care (01) ==
LOC: HO.LAB 14:04
PROVIDERS: PCP Internal Medicine; Visit Provider Internal Medicine Nephrology
DX: I12.9 Hypertensive chronic kidney disease with stage 1 through stage 4 chronic kidney disease, or unspecified chronic kidney disease (principal); N18.31 Chronic kidney disease, stage 3a
CPT/HCPCS: 36415; 80051; 82565; 84520

== ENCOUNTER 2024-10-15 13:49 | Outpatient (AMB) | payer OTHER, SELFPAY ==
--- NOTE | 2024-10-15 13:44 | HO.NEPHOV ---
Vital Signs 10/15/24 13:58 Height 5 ft 9 in Weight 194 lb BMI 28.6 BP 100/80 Blood Pressure Location Rt brachial Position Sitting Pulse 94 Pulse Source Pulse Oximeter Pulse Oximetry (%) 96 Oxygen Delivery Method Room Air Intake Visit Reasons: 4 MO FU-Conf Mine Manager Required: Yes Mine Manager Language: Wire Bender Hand Services: Mine Manager Present Mine Manager Name: Herminia [id number] Information Interpreted: clinical only Accompanied by: Self / Same As Patient Allergies No Known Allergies Allergy (Verified 10/15/24 13:58) HPI Comments Details: Sancho was seen in follow up for his CKD. He is a long standing diabetes wihtout significant proteinuria. He is on multiple blood sugar lowering medications including Jardiance. He denies any hypoglycemias. He is not on any ACEI/ARB and denies taking excess NSAID's. He denies any CAD, carotid stenosis, CVA, PAD, SHAE or CHF. He denies any epistaxis, photosensitivity, skin rashes, edema, hemoptysis, hemetemesis, melena, hematuria, recurrent sore throat, hepatitis, HIV, deafness. His recent serum creatinine has been stable. [facility] Medical History Asthma-COPD overlap syndrome HTN (hypertension) Dysphagia Cough Bronchitis Pneumonia Acute bronchospasm Acute bronchitis with asthma with acute exacerbation New abnormality on chest x-ray Depression Diabetes Chronic GERD Anxiety Hyperlipidemia Asthma Surgical History Status post rotator cuff surgery Hx of toe surgery Hx of repair of rotator cuff Hx of hernia repair Hx of colonoscopy Hx of esophagogastroduodenoscopy Family History Father No problems noted. Mother Hx of breast cancer Sister Diabetes Maternal Aunt Heart problem Social History Household Members: Spouse Housing: Apartment Alcohol intake: unknown Patient Tobacco Use Status: Former Tobacco user Years Smoked: 20 yrs ( quit 8 years ago) Second Hand Smoke Exposure: Yes service: No Current occupational status: retired Review of Systems Const All systems reviewed & are unremarkable except as noted in HPI and below Physical Exam Const General: comfortable and no acute distress Orientation/consciousness: patient oriented x3 Neck Neck: Yes supple Resp Auscultation: clear to auscultation bilaterally Cardio Jugular venous distension: no JVD Rate: regular rate GI Palpation (GI): Soft to palpation Auscultation: normal bowel sounds General: Yes no CVA tenderness Back/Spine/Pelvis Back: no CVA tenderness Skin General skin exam: no rashes or lesions noted Neuro General: patient oriented x3 and moves all extremities Extrem General: Yes no pedal edema Results Reviewed Nephrology Results: Sodium, (135-145) 138 mmol/L 10/10/24 Potassium, (3.3-5.1) 4.5 mmol/L 10/10/24 Chloride, (96-108) 104 mmol/L 10/10/24 Carbon Dioxide, (22-29) 22 mmol/L 10/10/24 BUN, (9-16) 21 mg/dL H 10/10/24 Creatinine, (0.5-1.4) 1.18 mg/dL 10/10/24 Renal US 02/15/24 Assessment & Plan Assessment & Plan (1) HTN (hypertension): Code(s): I10 - Essential (primary) hypertension Category: Medical Qualifiers: Hypertension type: primary hypertension Qualified Code(s): I10 - Essential (primary) hypertension (2) CKD stage 3a, GFR 45-59 ml/min: Code(s): N18.31 - Chronic kidney disease, stage 3a Category: Medical Plan Sancho had a tubular injury causing rise in serum creatinine in November 2023 which has resolved. His creatinine remains stable. He has had DM for long time and has underlying CKD. He never had significant proteinuria in the past. His urine output is good. He is on Jardiance. Dr Marinelli may initiate ACEi in time- blood pressure is on the low side today. He should avoid NSAID's and ensure good hydration. Continue to maintain controlled blood sugars. All these have been explained in detail. He will follow up with Dr Marinelli in 3-4 months. Orders: Orders Protein Creatinine Ratio, Ur 3 Months E11.65 - Type 2 diabetes mellitus with hyperglycemia Basic Metabolic Panel 3 Months N18.30 - Chronic kidney disease, stage 3 unspecified Coding Level of Care Code Est Pt Level 3 (53282) Diagnoses Primary hypertension I10 Hypertension type: primary hypertension CKD stage 3a, GFR 45-59 ml/min N18.31
[2024-10-15 13:58] VITALS: BP 100/80; PULSE 94; O2SAT 96; BMI 28.6
--- OUTSIDE RECORDS SUMMARY | 2024-10-15 14:45 | XMS_ITS | Clinical Summary ---
Author Organization 175 [facility] Address [address] [place] [address] Phone Care Team Providers Care In Home Aide Name Role Phone Danis Laurent MD Primary [...] 1:30 PM EDT Consult Orthopedic Surgery - [place] [address] 175 [facility] [address] [place] [phone] Kyle Kimball DPM Controlled type 2 diabetes [...] Upcoming Encounters Date Type Department Care Team ([facility] Contact Info) Description 12/16/2024 1:00 PM EDT Office Visit Orthopedic Surgery - [place] 250 175 [facility] 250 [place] [phone] Kyle Kimball, JOLANTA 175 [facility] [address] [place] [address] Health Maintenance Due Date Last Done Comments [...] patient's age to complete this topic Insurance [facility] MEDICARE Member Subscriber Plan / Payer (Ef fective 2023-Present) Name:SANCHO IGNACIO Relation to Subscriber:Self Name:Sancho Ignacio Payer ID:[id number] Group ID:[id number] Type:Not on file Address: [place] [address] [address] [phone] Care Teams In Home Aide Relationship Specialty Start Date End Date Danis Laurent MD [address] [place] [address] PCP - General Internal Medicine 07/03/24
--- OUTSIDE RECORDS SUMMARY | 2024-10-15 14:45 | XMS_ITS | Encounter Summary ---
Author Organization [employer] Address 75 [facility] [address] [place] [address] Care Team Providers Care Pipe Production Worker Name Role Phone Danis Morales MD Primary Care Provide r Encounter Details Date Type Department Care Team (Late st Contact Info) Description 10/10/2024 Orders Only GENERIC EXTERNAL DATA DEPARTMENT Provider, Generic External Data Social History Tobacco Use Types Packs/Day Years [...] on file documented as of this encounter Procedures Procedure Name Priority Date/Time Associated Diagnosis Comments CREATININE, SERUM Routine 10/10/2024 2:1 1 PM EDT UREA NITROGEN (BUN) Routine 10/10/2024 2 :11 PM EDT ELECTROLYTE PANEL Routine 10/10/2024 2:1 1 PM EDT documented in this encounter Results * Creatinine, Serum (10/10/2024 2:11 PM EDT) Creatinine, Serum 1.18 0.5 - 1.4 mg/dL [facility] Estimated Glomerular Filt Rate >60 [facility] Comment:Chronic Kidney Disea se: Estimated GFR < 60 mL/min/1.47f8Iiohvd Kidney Disease: Estimated GFR < 15 mL/min/1.73m2 10/10/2024 2:11 PM EDT 10/10/2024 2:12 PM EDT us Generic External Data Provider LAB BLOOD ORDERAB LES Final Result [facility] [address] [place] [address] [phone] * (ABNORMAL) BUN (Blood Urea Nitrogen) (10/10/2024 2:11 PM EDT) Urea Nitrogen (BUN) 21(H) 9 - 16 mg/dL [facility] 10/10/2024 2:11 PM EDT 10/10/2024 2:12 PM EDT us Generic External Data Provider LAB BLOOD ORDERAB LES Final Result Performing Organization Address [facility] Co de Phone Number [facility] [address] [place] [address] [phone] * Electrolyte Panel (10/10/2024 2:11 PM EDT) Sodium 138 135 - 145 mmol/L [facility] Potassium 4.5 3.3 - 5.1 mmol/L [facility] Chloride 104 96 - 108 mmol/L [facility] Carbon Dioxide 22 22 - 29 mmol/L [facility] Anion Gap 17 12 - 20 [facility] 10/10/2024 2:11 PM EDT 10/10/2024 2:12 PM EDT Generic External Data Provider LAB BLOOD ORDERAB LES Final Result Performing Organization Address [facility] de Phone Number [facility] [address] [place] [address] [phone] documented in this encounter Visit Diagnoses Not on filedocumented in this encounter Additional Health Concerns Assessment Noted Time PHQ-9 Depression Total Score: 3 06/11/19 25 1:54 PM EDT documented as of this encounter Care Teams Pipe Production Worker Relationship Specialty Start Date End Date Danis Morales MD [address] [place] [phone] PCP - General Internal Medicine 11/24/13 documented as of this encounter
== END 2024-10-15 14:08 | disposition home or self-care (01) ==
PROVIDERS: PCP Internal Medicine; Visit Provider Nurse Practitioner Family
DX: I10 Essential (primary) hypertension (principal); N18.31 Chronic kidney disease, stage 3a
CPT/HCPCS: 99213

== ENCOUNTER → 2024-10-15 13:49 | Outpatient (BNVA) | payer OTHER, SELFPAY | PROVIDERS: PCP Internal Medicine; Visit Provider Internal Medicine Nephrology | DX: I10 Essential (primary) hypertension (principal); N18.31 Chronic kidney disease, stage 3a | CPT/HCPCS: 99212 ==

== ENCOUNTER 2024-11-27 13:36 | Outpatient (REF) | payer OTHER, SELFPAY ==
[2024-11-27 14:54] LABS: MANUAL DIFF FLAG NO
[2024-11-27 15:11] LABS: Hematocrit 46.2 % (42.0-52.0); Hemoglobin 15.2 g/dl (14.0-18.0); Imm Gran Abs Auto 0.08 X10*3/uL (0.00-0.03); Imm Gran Pct Auto 0.6 % (0.0-0.4); Lymphocytes Absolute Auto 3.1 X10*3/uL (1.2-4.9); Mean Corpuscular HGB Conc 32.9 g/dl (31.0-36.0); Mean Corpuscular Hemoglobin 29.5 pg (27.0-33.0); Mean Corpuscular Volume 89.5 fL (80.0-98.0); NRBC Abs Auto 0.000 X10*3/uL (0.0-0.012); NRBC Pct Auto 0.0 /100WBC (0.0-0.2); Platelet Count 226 X10*3/uL (160-400); Red Blood Count 5.16 X10*6/uL (4.60-5.80); White Blood Count 13.1 X10*3/uL (4.8-10.8)
[2024-11-27 15:57] LABS: Alanine Aminotransferase 28 U/L (0-40); Albumin Level 4.4 g/dL (3.5-5.0); Alkaline Phosphatase 69 U/L (39-117); Anion Gap 13 (12-20); Aspartate Amino Transferase 28 U/L (5-37); Blood Urea Nitrogen 17 mg/dL (9-16); Calcium 9.4 mg/dL (8.4-10.2); Carbon Dioxide 23 mmol/L (22-29); Chloride 107 mmol/L (96-108); Estimated Glomerular Filt Rate > 60; Potassium 4.7 mmol/L (3.3-5.1); Sodium 138 mmol/L (135-145); Total Protein 8.4 g/dL (6.5-8.0)
== END 2024-11-27 13:37 | disposition home or self-care (01) ==
LOC: HO.LAB 13:36
PROVIDERS: PCP Internal Medicine; Visit Provider Nurse Practitioner
DX: Z01.818 Encounter for other preprocedural examination (principal); K58.1 Irritable bowel syndrome with constipation; D12.6 Benign neoplasm of colon, unspecified; K31.84 Gastroparesis; R13.10 Dysphagia, unspecified; R14.0 Abdominal distension (gaseous); Z12.11 Encounter for screening for malignant neoplasm of colon; Z79.899 Other long term (current) drug therapy
CPT/HCPCS: 36415; 80053; 85025; 99212

== ENCOUNTER 2024-11-27 13:36 | Outpatient (AMB) | payer OTHER, SELFPAY ==
--- NOTE | 2024-11-27 14:04 | A.OFFVIS_ITS ---
Vital Signs 11/27/24 14:05 Height 5 ft 9 in Weight 197 lb 8.547 oz BMI 29.2 BP 115/71 Blood Pressure Location Lt brachial Position Sitting Intake Visit Reasons: GERD, CIC 6 mo f/u Intake Note: Sancho presents in office today in follow up of GERD. CC: Patient c/o chocking with foods for the last 3 months. 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 Required: No Accompanied by: Self / Same As Patient Allergies No Known Allergies Allergy (Verified 11/27/24 14:13) HPI HPI GERD, CIC 6 mo f/u: Details: Assessment & Plan (1) Gastroparesis: Code(s): K31.84 - Gastroparesis Category: Medical (2) GERD (gastroesophageal reflux disease): Code(s): K21.9 - Gastro-esophageal reflux disease without esophagitis Category: Medical Qualifiers: Esophagitis presence: without esophagitis Qualified Code(s): K21.9 - Gastro-esophageal reflux disease without esophagitis (3) Abdominal bloating: Code(s): R14.0 - Abdominal distension (gaseous) Category: Medical (4) Irritable bowel syndrome with constipation: Code(s): K58.1 - Irritable bowel syndrome with constipation Category: Medical (5) Tubular adenoma of colon: Comment: 2020 scope TA removed repeat 5 years Code(s): D12.6 - Benign neoplasm of colon, unspecified Category: Medical Plan [place] #kayleen LIVE He continues on his pantoprazole in the morning and famotidine at night, reglan 10 mg 3 times a day, his senna, simethicone. He continues to do well. We review the labs and there were no abnormalities to explain his fatigue. He says he IS feeling better now. ROV 6 mos. Medications: Refilled pantoprazole 40 mg PO QAM 30 tabs 6RF sennosides (senna) 17.2 mg (2 x 8.6 mg) PO BEDTIME 60 tabs 6RF for constipation famotidine 40 mg PO BEDTIME 90 tabs 1RF K21.9 - Gastro-esophageal reflux disease without esophagitis metoclopramide HCl 10 mg PO TID 90 tabs 6RF simethicone 180 mg PO QID PRN 90 caps 6RF for gas K21.9 - Gastro-esophageal reflux disease without esophagitis, K58.1 - Irritable bowel syndrome with constipation, R14.0 - Abdominal distension (gaseous) TODAYS VISIT COUNT INCLUDES THE [facility] Medical History (Updated 11/27/24 @ 14:35 by JATINDER Barron) Dysphagia Asthma-COPD overlap syndrome HTN (hypertension) Cough Bronchitis Pneumonia Acute bronchospasm Acute bronchitis with asthma with acute exacerbation New abnormality on chest x-ray Depression Diabetes Chronic GERD Anxiety Hyperlipidemia Asthma Surgical History Status post rotator cuff surgery Hx of toe surgery Hx of repair of rotator cuff Hx of hernia repair Hx of colonoscopy Hx of esophagogastroduodenoscopy Family History Father No problems noted. Mother Hx of breast cancer Sister Diabetes Maternal Aunt Heart problem Social History Household Members: Spouse Housing: Apartment Alcohol intake: unknown Patient Tobacco Use Status: Former Tobacco user Years Smoked: 20 yrs ( quit 8 years ago) Second Hand Smoke Exposure: Yes service: No Current occupational status: retired Review of Systems Const Denies fatigue, Denies fever(s), Denies night sweats, Denies poor appetite and Denies weight loss Eyes Details: glasses Reports requires corrective lenses ENT Reports Normal hearing present, Denies dental pain, Reports dysphagia, Denies hearing loss, Denies mouth pain, Denies odynophagia, Denies throat swelling, Denies tongue swelling and Reports other (Dentition adequate) Card Reports no additional complaints Resp Reports no additional complaints GI Details: Denies abdominal pain, Denies melena, Reports bloating, Denies hematochezia, Reports constipation, Denies GI cramping, Reports dysphagia, Denies excessive flatus, Denies early satiety, Reports heartburn, Denies diarrhea, Denies nausea, Denies odynophagia, Denies vomiting and Denies hematemesis Skin/Breast Denies pruritus, Denies lesions, Denies rash and Denies jaundice Neuro Reports Normal hearing present and Denies Abnormal speech present Endo Denies fatigue Aller/Immun Denies throat swelling and Denies tongue swelling Physical Exam Vital Signs: Last Vital Signs BP 115/71 11/27/24 14:05 BMI result Body Mass Index 29.2 Const General: cooperative, no acute distress, well developed and well groomed Nutritional Appearance: well nourished and overweight Orientation/consciousness: oriented to person, oriented to place and oriented to time Limitations: language barrier HEENT Head: Yes normocephalic and Yes atraumatic Eyes General: appearance normal, both eyes and all related structures Pupils: Equal, round and reactive pupils present Neck Neck: Yes normal visual inspection and Yes no lymphadenopathy Thyroid: Thyroid normal Resp Effort & Inspection: normal respiratory effort and able to speak in complete sentences Auscultation: clear to auscultation bilaterally Cardio Rate: regular rate Rhythm: regular rhythm Heart sounds: Normal, physiologic split S2 sound present Peripheral pulses: radial pulses present and posterior tibial pulses present GI Inspection: No distended, No Abdominal panniculus present and Yes obesity Palpation (GI): Soft to palpation, nontender, no guarding, not rigid and No hepatosplenomegaly present Percussion: Yes normal to percussion Auscultation: normal bowel sounds Rectal Exam - Male: Yes deferred Skin General skin exam: no rashes or lesions noted, turgor normal, skin not dry, no jaundice, No spider nevi and no striae Rashes: no rashes Nails: normal Neuro General: oriented to person, oriented to place and oriented to time Cranial nerves: Yes Equal, round and reactive pupils present and Yes Normal hearing present Speech: No Abnormal speech present Extrem General: Yes normal to inspection, No clubbing, No cyanosis and No edema Psych Appearance: grossly normal and well kempt Mental Status: mental status grossly normal Speech and movement: Normal speech and movement present Affect: normal affect Attitude: cooperative Thought process: Normal thought process present and not confabulating Thought content: Normal thought content present Insight: Fair insight present (Psych) and Limited insight present (Psych) Judgement: Fair judgement present (Psych) and Limited judgement present (Psych) Assessment & Plan Assessment & Plan (1) Dysphagia: Comment: Lack of neuromuscular coordination referred to speech therapy, but also has benefited from dilation as of his 2021 EGD Code(s): R13.10 - Dysphagia, unspecified Category: Medical (2) Irritable bowel syndrome with constipation: Code(s): K58.1 - Irritable bowel syndrome with constipation Category: Medical (3) Tubular adenoma of colon: Comment: 2019 scope TA removed repeat 5 years Code(s): D12.6 - Benign neoplasm of colon, unspecified Category: Medical (4) Pre-op examination: Code(s): Z01.818 - Encounter for other preprocedural examination Category: Medical (5) Gastroparesis: Code(s): K31.84 - Gastroparesis Category: Medical Plan [place] # Karie beltran He continues on his pantoprazole in the morning and famotidine at night, reglan 10 mg 3 times a day, his senna, simethicone. - The patient is a 64-year-old male presenting for follow-up for GERD, constipation, gastroparesis and bloating. - Experiencing dysphagia for approximately three months, characterized by choking sensations during meals. - History of esophageal dilation in past, with good symptom resolution, the last was in 2022. - Managed GERD with pantoprazole, and famotidine he has had no lapse in therapy, no additional medications that could be complicating his smooth muscle motility, and no explanation for why the symptoms returned. - His gastroparesis remains well controlled with Reglan. His constipation is well controlled with senna. He is also due for a colonoscopy since his last was in 2019 and he has a history of tubular adenomas. He is agreeable to having this scheduled as well. His asthma/COPD is well controlled and he denies any cardiac problems. There are no prior problems with anesthesia or sedation. There are no infectious disease problems. I will see him in 6 months and after his procedures. Orders: Orders Comprehensive Met. Panel Today Z01.818 - Encounter for other preprocedural examination Complete Blood Count Auto Diff Today Z01.818 - Encounter for other preprocedural examination Referrals GI Procedure Notification D12.6 - Benign neoplasm of colon, unspecified, R13.10 - Dysphagia, unspecified Medications: New peg 3350-electrolytes 236-22.74-6.74 -5.86 gram (Golytely) until fecal effluent is clear; do not exceed a total volume of 2,000 mL 240 m L PO Q10M 4,000 mL 0RF 1 day Z12.11 - Encounter for screening for malignant neoplasm of colon bisacodyl (Dulcolax (bisacodyl)) 10 mg (2 x 5 mg) PO BEDTIME 4 tabs 0RF 2 days Refilled pantoprazole 40 mg PO QAM 30 tabs 6RF sennosides (senna) 17.2 mg (2 x 8.6 mg) PO BEDTIME 60 tabs 6RF for constipation metoclopramide HCl 10 mg PO TID 90 tabs 6RF simethicone 180 mg PO QID PRN 90 caps 6RF for gas K21.9 - Gastro-esophageal reflux disease without esophagitis, K58.1 - Irritable bowel syndrome with constipation, R14.0 - Abdominal distension (gaseous) Discontinued benzonatate Discontinued Reason: Patient Completed Course 100 mg PO TID PRN 12 caps 0RF cough Coding Level of Care Code Est Pt Level 4 (06219) Diagnoses Dysphagia R13.10 Irritable bowel syndrome with constipation K58.1 Tubular adenoma of colon D12.6 Pre-op examination Z01.818 Gastroparesis K31.84 Time Spent (min) 37
[2024-11-27 14:05] VITALS: BP 115/71; BMI 29.2
--- OUTSIDE RECORDS SUMMARY | 2024-11-27 15:07 | XMS_ITS | Encounter Summary ---
Author Organization [employer] Address [address] [place] [address] [address] [place] [address] Care Team Providers Care Animal Caretaker Supervisor Name Role Phone Danis Morales MD Primary Care Provide r Encounter Details Date Type Department Care Team (Late st Contact Info) Description 09/07/2022 Orders Only [facility] [address] [place], [place] [phone] Ailin Kumar LPN Social History Tobacco Use [...] documented as of this encounter Care Teams Animal Caretaker Supervisor Relationship Specialty Start Date End Date Danis Morales MD [address] [place], [place] [phone] PCP - General Internal Medicine 11/24/13 documented as of this encounter
--- OUTSIDE RECORDS SUMMARY | 2024-11-27 15:07 | XMS_ITS | Encounter Summary ---
Author Organization [employer] Address [address] [place] [address] Care Team Providers Care Rn Peritoneal Dialysis Name Role Phone Danis Morales MD Primary Care Provide r Encounter Details Date Type Department Care Team (Late st Contact Info) Description 12/25/[address] [facility] [address] [place], [place] [phone] Pat Goldberg LPN Social History Tobacco Use [...] documented as of this encounter Care Teams Rn Peritoneal Dialysis Relationship Specialty Start Date End Date Danis Morales MD [address] [place] [phone] PCP - General Internal Medicine 11/24/13 documented as of this encounter
--- OUTSIDE RECORDS SUMMARY | 2024-11-27 15:07 | XMS_ITS | Encounter Summary ---
Author Organization [employer] Address [address] [facility] 7t [place] [address] Care Team Providers Care Trim Attacher Name Role Phone Danis Morales MD Primary Care Provide r Encounter Details Date Type Department Care Team (Late st Contact Info) Description 05/30/2022 Orders Only [facility]ED[facility] [address] [place] [address] Pat Goldberg LPN Social History Tobacco Use [...] on filedocumented in this encounter Care Teams Trim Attacher Relationship Specialty Start Date End Date Danis Morales MD [address] [place] [id number] PCP - General Internal Medicine 11/24/13 documented as of this encounter
--- OUTSIDE RECORDS SUMMARY | 2024-11-27 15:07 | XMS_ITS | Clinical Summary ---
Author Organization [employer] Address [address] [facility] [address] [place] [address] Care Team Providers Care Cheese Wrapper Name Role Phone Danis Morales MD Primary [...] record from that organization. [employer] Short Pen [place] 31G X 8 MM miscIndication s:Type 2 diabetes mellitus without complication, unspecified whether retirement insulin use USE EVERY EVENING 100 each 3 023 Active montelukast (Singulair) 10 MG tablet TAKE 1 TABLET BY MOUTH EVERY EVENING 30 tablet 6 024 Active Continuous Glucose Corporate Account Executive (FreeStyle Briana 2 Lyndon) deviceIndicati ons:Type 2 diabetes mellitus without complication, with long-term current use of insulin ([facility]) Scan sensor every 8 hours 1 each 3 024 Active Continuous Glucose Sensor (FreeStyle Briana 2 Sensor) miscIndication s:Type 2 diabetes mellitus without complication, with long-term current use of insulin ([facility]) Apply 1 sensor every 14 days 2 each 3 024 Active Ventolin HFA 108 (90 Base) MCG/ACT inhaler INHALE 2 PUFFS BY MOUTH EVERY 4 TO 6 HOURS NEEDED 18 g 1 024 Active traMADol (Ultram) 50 MG tabletIndicati ons:Posterior chest pain,Bilateral lower extremity pain Take 1 tablet (50 mg) by mouth every 8 (eight) hours if needed for severe pain. 12 tablet 024 Active Aspirin Low Dose 81 MG EC tablet TAKE 1 TABLET BY MOUTH EVERY MORNING 90 tablet 3 024 Active glucose blood (FREESTYLE LITE) test stripIndicatio ns:Hyperglycem ia USE DIRECTED TO TEST BLOOD SUGAR TWICE DAILY 100 strip 3 024 Active pioglitazone (Actos) 30 MG tablet TAKE 1 TABLET BY MOUTH EVERYDAY AT NOON 90 tablet 2 025 Active insulin glargine (Lantus SoloStar) 100 UNIT/ML penIndications :Type 2 diabetes mellitus without complication, with long-term current use of insulin ([facility]) INJECT 42 UNITS SUBCUTANEOUSLY AT BEDTIME 15 mL 3 025 Active BD Pen Needle Criselda Ultrafine 32G X 4 MM misc USE DIRECTED EVERY DAY 100 each 3 025 Active Alcohol Swabs (Alcohol Prep) 70 % pads USE DIRECTED FOUR TIMES DAILY 100 each 11 025 Active zolpidem (Ambien) 5 MG tabletIndicati ons:Depressive disorder Take 1 tablet (5 mg) by mouth if needed at bedtime for sleep. 30 tablet 025 Active Zoloft 50 MG tabletIndicati ons:Depressive disorder Take 2 tablets (100 mg) by mouth in the morning. 60 tablet 1 025 Active atorvastatin (Lipitor) 20 MG tablet TAKE 1 TABLET BY MOUTH EVERY EVENING 30 tablet 6 025 Active Jardiance 25 MG TAKE 1 TABLET BY MOUTH EVERY MORNING 30 tablet 6 025 Active empagliflozin (Jardiance) 25 MG Take 1 tablet (25 mg) by mouth in the morning. 30 tablet 6 025 Active repaglinide (Prandin) 0.5 MG tabletIndicati ons:Type 2 diabetes mellitus without complication, with long-term current use of insulin ([facility]) TAKE 1 TABLET BY MOUTH THREE TIMES DAILY 90 tablet 6 025 Active metFORMIN (Glucophage) 1000 MG tablet TAKE 1 TABLET BY MOUTH TWICE DAILY AT NOON AND BEDTIMETAKE 180 tablet 2 025 Active lidocaine (Lidoderm) 5 % patchIndicatio ns:Posterior chest pain Apply 1 patch topically Once per day. Remove & discard patch within 12 hours or as directed by MD. 30 patch 2 024 2024 metFORMIN (Glucophage) 1000 MG tablet TAKE 1 TABLET BY MOUTH TWICE DAILY AT NOON AND BEDTIME 180 tablet 2 024 2024 Discontinued(R eorder (will not trigger notification to Pharmacy)) repaglinide (Prandin) 0.5 MG tabletIndicati ons:Type 2 diabetes mellitus without complication, with long-term current use of insulin ([facility]) TAKE 1 TABLET BY MOUTH THREE TIMES DAILY 90 tablet 6 025 2024 Discontinued Active Problems Problem Noted Date Diagnosed Date Overweight (BMI 25.0-29.9) 09/09/2024 Assessment & Plan (09/09/2024 2:03 PM EDT): Patient has been counseled and educated about diet and exercise. Personal goal of weight loss discussed Ingrowing nail, left great toe 06/10/2024 Assessment [...] x 5d then prn SOB/Cough Take Acetaminophen (Tylenol )/Ibuprofen as needed to reduce fever, headache, body [...] 72 hours (temperature should be less than 100 F without medication). CKD stage 3a, GFR 45-59 ml/min ([facility]) 024 Assessment & Plan (09/09/2024 1:53 PM EDT): Under the care of Nephrology, last seen 06/20/2024 As per his Note: He think patient had tubular injury causing rise in serum creatinine, which has resolved. He mentions that he has never had significant proteinuria in the past. He is planning to initiate him on low dose of ACEI with time. Assessment & Plan (06/10/2024 2:16 PM EDT): [...] Plan (08/23/2023 11:56 AM EDT): Evaluated by Manager Clinical Research Dr Ocampo Stress testing 06/2023 Negative for [...] Gastroesophageal reflux disease 06/06/2022 Assessment & Plan (09/09/2024 1:51 PM EDT): Pt with c/o severe GERD. Pt currently following with GI. Last seen 05/30/2024 On Pantoprazole an Famotidine as per GI Assessment & Plan (02/07/2024 2:20 PM EST): Pt with c/o severe GERD. Pt currently following with GI. Last seen 11/2023 Assessment & Plan (06/06/2022 12:59 PM EDT): Pt with c/o severe GERD, Was not responding to Zantac BID Previous visit we switched to Prilosec 20 mg po daily with excellent results. Upper GI series on 01/26/2015 were wnl. Pt currently following with GI. [facility] health care 06/06/2022 Assessment & Plan (06/10/2024 [...] derm clinic Hyperlipidemia 06/23/2016 Assessment & Plan (09/09/2024 2:04 PM EDT): Patient is here for a f/u Patient with elevated lipids. Most recent lipid profile from: Lab Results Component Value Date TRIG 112 08/27/2023 TRIG 268 (H) 06/19/2022 CHOL 111 08/27/2023 LDLCHOLCAL 51 08/27/2023 HDL 38 (L) 08/27/2023 Currently on a regimen of: Atorvastatin 20 mg po qhs Plan: Continue Atorvastatin 20 mg po q pm, Repeat Lipid profile advised to try to adhere to a low cholesterol diet, counseled and educated about diet and exercise, Patient encouraged to come up with a personal goal for weight loss. Assessment & Plan (06/06/2022 12:57 PM EDT): [...] work up. He was seen by a vector control specialist (Dr Patel) last seen 04/13/2015 he repeated his PFTs that were almost normal so he recommended to DC Advair and Spiriva and keep him on Albuterol prn only Of note pt has had PFT'S and a Methacholine challenge at [facility] that was negative. Pt is on Advair HFA 250/50, Singulair and Albuterol He is now under the care of Dr Pa Watson, last seen 03/14/2024 Assessment & Plan (09/27/2023 2:39 PM EDT): Doing well, no recent exacerbation Pt has a Hx of a chronic cough for which he had an extensive pulmonary work up. He was seen by a vector control specialist (Dr Patel) last seen 04/13/2015 he repeated his PFTs that were almost normal so he recommended to DC Advair and Spiriva and keep him on Albuterol prn only Of note pt has had PFT'S and a Methacholine challenge at [facility] that was negative. Pt is on Advair HFA 250/50, Singulair and Albuterol He is now under the care of Dr Pa Watson, last seen 09/10/2023 Assessment & Plan (08/23/2023 11:46 AM EDT): Doing well, no recent exacerbation Pt has a Hx of a chronic cough for which he had an extensive pulmonary work up. He was seen by a vector control specialist (Dr Patel) last seen 04/13/2015 he repeated his PFTs that were almost normal so he recommended to DC Advair and Spiriva and keep him on Albuterol prn only Of note pt has had PFT'S and a Methacholine challenge at [facility] that was negative. Pt is on Advair HFA 250/50 and Albuterol He is now under the care of Dr Pa Watson, last seen 02/2023 Assessment & Plan (06/06/2022 1:47 PM EDT): Doing well, no recent exacerbation Pt has a Hx of a chronic cough for which he had an extensive pulmonary work up. He was seen by a vector control specialist (Dr Patel) last seen 04/13/2015 he repeated his PFTs that were almost normal so he recommended to DC Advair and Spiriva and keep him on Albuterol prn only Of note pt has had PFT'S and a Methacholine challenge at [facility] that was negative. Pt is on Advair HFA 250/50 and Albuterol He is now under the care of Dr Pa Watson, last seen 01/2022 Type 2 diabetes mellitus wit h stage 3a chronic kidney disease 03/11/2015 Assessment & Plan (09/09/2024 2:09 PM EDT): Patient is here for a f/u regarding his DM. DM unchanged He is back under the care of Endocrinology , he tells me he was seen recently He is on a regimen of: Repaglinide 0.5 mg TID, Metformin 1000 mg po BID, Actos 30 mg po daily , Lantus lowered to 24 units sc q pm ( by endocrinology )and Jardiance 25 mg po daily. he is off Glipizide. He is ineligible for GLP1s due to Gastroparesis Hgb A1c on 09/09/2024 : 8 from 7.9 from 7 Eye exam last done by Dr Connor(senior quality methods specialist). Microalbumin checked on: 06/20/2023 was: 0.4 [...] on a daily basis Plan: As per [facility] Endocr[facility]ology Assessment & Plan (06/10/2024 2:11 PM EDT): [...] 7 Eye exam last done by Dr Connor(senior quality methods specialist). Microalbumin checked on: 06/20/2023 was: 0.4 [...] As per [facility] Assessment & Plan (02/07/2024 2:37 PM [...] medications. Eye exam last done by Dr Connor(senior quality methods specialist). Microalbumin checked on: 06/20/2023 was: 0.4 [...] medications. Eye exam last done by Dr Connor(senior quality methods specialist). Microalbumin checked on: 04/19/2020 was: 1.4 [...] on a daily basis Plan: As per [facility] Endocrinology Assessment & Plan (08/23/2023 11:45 AM [...] Endocrinology Eye exam last done by Dr Connor(senior quality methods specialist). Microalbumin checked on: 04/19/2020 was: 1.4 [...] on a daily basis Plan: As per [facility] Endocr[facility]ology Assessment & Plan (01/04/2023 2:30 PM [...] was asked to schedule an appointment at [facility] Endocrinology, pt insisted that he had one at [facility] but it seems he was confused He was evaluated by our clinical systems educator and Office Supervisor Eye exam last done by Dr Connor(senior quality methods specialist). Microalbumin checked on: 04/19/2020 was: 1.4 [...] a daily basis Plan: referred back to [facility] Endocrinology Assessment & Plan (10/10/2022 1:36 PM [...] referred back to Endocrinology Plan: referal to clinical systems educator and Office Supervisor as well as Senior Private Client Advisor at [facility] check BG regularly Increase Lantus to 42 units subcutaneous qhs f/u 3 months with me Eye exam was last done on: 08/24/16. by Dr. Dr Connor(senior quality methods specialist). Microalbumin checked on: 04/19/2020 was: 1.4 [...] last done on: 08/24/16. by Dr. Dr Connor(senior quality methods specialist). Microalbumin checked on: 04/19/2020 was: 1.4 [...] under the care of Thoracic surgery at [facility]. Pt seemed convinced that this is contributing to his chronic cough and wanted to have it excised. Pt is now s/p R VATS/pericardial cyst resection by Dr Melissa Smith at [facility] thoracic on 07/10/2012 Pt was noted to be tachycardic during the post op period and started on Cardizem with good effects. For pain control he is using percocet as needed. Pt was last seen by Dr Smith on: 08/28/2012 Pt was seen again for f/u by jin Bhat at [facility] Thoracic on 11/05/13 who recommended NO further f/u needed Of note pt had a CTA chest on 07/13/2012 that showed a minimal right anterior pneumothorax, streaky opacities on his right lower lobe, atelectasis vs early pna (pt is afebrile, has no cough) and post op subcutaneous emphysema. Depressive disorder 11/07/2011 Assessment & Plan (09/09/2024 1:55 PM EDT): Patient is no longer under the care of Ino Walton. In the past he was under the care of Dr Frantz Mead He is seeing a psychotherapist her name is janes Nieves: [phone] Patient denies any suicidal ideation or thoughts, Patient has crisis numbers and knows to use them if needed I will continue to prescribe his Zolpidem and Zoloft while he awaits to seen new psychiatric prescriber Assessment & Plan (06/10/2024 2:17 PM EDT): Patient is no longer under the care of Dr Frantz Mead, see med list for current psych meds. He is seeing a psychotherapist her name is janes Nieves: [phone] Patient denies any suicidal ideation or thoughts, Patient has crisis numbers and knows to use them if needed He is seeing costume technician Ino Walton , last seen 05/22/2024 On Zolpidem and Zoloft Assessment & Plan (02/07/2024 2:43 PM EST): Patient is no longer under the care of Dr Frantz Mead, see med list for current psych meds. He is seeing a psychotherapist her name is janes Nieves: [phone] Patient denies any suicidal ideation or thoughts, [...] knows to use them if needed Encounters Date Type Department Care Team Description 11/17/2024 Refill [facility] MED[facility] [address] [place] [address] Danis Morales MD 11/15/2024 Refill [facility] MED[facility]INE [address] [place] [address] Danis Morales MD Type 2 diabetes mellitus without complication, with long-term current use of insulin ([facility]) 10/24/2024 Telephone [facility] [address] [facility] [place] [address] Danis Morales MD Appointment 10/10/2024 Results Follow-Up [facility] [address] [facility] [place] [address] Pattie Josue MD Electrolyte Panel, BUN (Blood Urea Nitrogen), Creatinine, Serum 10/10/2024 Orders Only GENERIC EXTERNAL DATA DEPARTMENT Provider, Generic External Data 09/23/2024 Refill [facility] MED[facility]INE [address] [place] [address] Danis Morales MD 09/22/2024 Refill [facility] MED[facility]INE [address] [place] [address] Danis Morales MD 09/18/2024 Refill [facility] MED[facility]INE [address] [place] [address] Dansi Morales MD 09/12/2024 Orders Only GENERIC EXTERNAL DATA DEPARTMENT Provider, Generic External Data 09/09/2024 2:00 PM EDT Office Visit [facility] [address] [place] [address] Danis Morales MD Gastroesophageal reflux disease without esophagitis (Primary Dx); Type 2 diabetes mellitus with stage 3a chronic kidney disease, with long-term current use of insulin ([facility]); Posterior chest pain; Bilateral lower extremity pain; Depressive disorder; CKD stage 3a, GFR 45-59 ml/min (CMS/HCC); Overweight (BMI 25.0-29.9); Dietary counseling; Exercise counseling; Mixed hyperlipidemia 09/09/2024 Travel 09/08/2024 Telephone [facility] MED[facility]INE [address] [place] [address] Danis Morales MD chart prep 09/01/2024 Refill [facility] MED[facility] [address] [place] [address] Danis Morales MD Depressive disorder 09/01/2024 Refill [facility] [address] [place] [address] Danis Morales MD Depressive disorder from Last 3 Months Immunizations Immunization Administration Dates Next Due INFLUENZA VACCINE QUADRIVALE [...] Sign Reading Time Taken Comments Blood Pressure 118/84 09/09/2024 1:53 PM EDT Pulse 90 09/09/2024 1:53 PM EDT Temperature 36.4 C (97.6 F) 09/09/2024 1:53 PM EDT Respiratory Rate 20 09/09/2024 1:53 PM EDT Oxygen Saturation 97% 09/09/2024 1:53 PM EDT Inhaled Oxygen Concentration - - Weight 89.4 kg (197 lb 3.2 oz) 09/09/2024 1:53 P M EDT Height 175.3 cm (5' 9 ) 09/09/2024 1:53 PM EDT Body Mass Index 29.12 09/09/2024 1:53 PM EDT Plan of Treatment Health Maintenance Due Date Last Done Comments CT Colonography 1958 FIT DNA/Cologuard 1958 FIT 1958 FOBT 1958 Sigmoidoscopy 1958 Diabetes: Foot Exam 1968 Eye Exam 1968 RSV Patients and Patients Aged 60 years or older (1 - Risk 60-74 years 1-dose series) 2018 COVID-19 Vaccine ( season) 2024 02/23/2021, 05/21/2020, 04/23/2020 Influenza Vaccine (#1) 2024 4, 12/05/2022, 12/23/2021, Additional history exists Colonoscopy 12/10/2024 12/11/2019 Colorectal Cancer Screening 12/10/2024 Diabetes: Hemoglobin A1C 12/10/202409/09/2 025, 06/10/2024, 02/07/2024, Additional history exists SDOH Screening 05/27/2025 05/27/2024 Alcohol/Substance Use Screening 06/10/2025 06/10/2024 Depression Screening 06/10/2025 06/10/2024, 06/11/19 Tobacco Screening 06/25/2025 06/25/2024 Lipid Panel 09/12/2025 09/12/2024, 07/0 02/2023, 06/19/2022, Additional history exists DTaP/Tdap/Td Vaccines (2 - Td or Tdap) [...] PANEL Routine 10/10/2024 2:1 1 PM EDT PSA, TOTAL WITH REFLEX TO PSA, FREE Routine 09/12/2024 11:50 AM EDT LIPID PANEL, STANDARD Routine 09/12/2024 11:50 AM EDT Type 2 diabetes mellitus with stage 3a chronic kidney disease, with long-term current use of insulin ([facility]/HCC) Mixed hyperlipidemia POCT GLYCATED HEMOGLOBIN, TOTAL Routine 09/09/2024 2:03 PM EDT Type 2 diabetes mellitus with stage 3a chronic kidney disease, with long-term current use of insulin (CMS/HCC) POCT GLUCOSE Routine 09/09/2024 1:58 PM EDT Type 2 diabetes mellitus with stage 3a chronic kidney disease, with long-term current use of insulin ([facility]) HEPATITIS C AB W/REFL TO HCV RNA, QN, PCR Routine 06/19/2022 8:29 AM EDT Mixed hyperlipidemia HM COLONOSCOPY Routine 12/11/2019 from Last 3 Months or Most Recently Relevant to Health Maintenance Results * Creatinine, Serum (10/10/2024 2:11 PM EDT) Creatinine, Serum 1.18 0.5 - 1.4 mg/dL [facility] Estimated Glomerular Filt Rate >60 [facility] Comment:Chronic Kidney Disea se: Estimated GFR < 60 mL/min/1.64g0Yibzka Kidney Disease: Estimated GFR < 15 mL/min/1.73m2 10/10/2024 2:11 PM EDT 10/10/2024 2:12 PM EDT us Generic External Data Provider LAB BLOOD ORDERAB LES Final Result [facility] [address] [place] [phone] * (ABNORMAL) BUN (Blood Urea Nitrogen) (10/10/2024 2:11 PM EDT) Urea Nitrogen (BUN) 21(H) 9 - 16 mg/dL [facility] 10/10/2024 2:11 PM EDT 10/10/2024 2:12 PM EDT us Generic External Data Provider LAB BLOOD ORDERAB LES Final Result Performing Organization Address [facility]/ZIP Co de Phone Number [facility] [address] [place] [phone] * Electrolyte Panel (10/10/2024 2:11 PM EDT) Sodium 138 135 - 145 mmol/L [facility] Potassium 4.5 3.3 - 5.1 mmol/L [facility] Chloride 104 96 - 108 mmol/L [facility] Carbon Dioxide 22 22 - 29 mmol/L [facility] Anion Gap 17 12 - 20 [facility] 10/10/2024 2:11 PM EDT 10/10/2024 2:12 PM EDT Generic External Data Provider LAB BLOOD ORDERAB LES Final Result Performing Organization Address [facility] de Phone Number [facility] [address] [place] [phone] * PSA, Total With Reflex to PSA, Free (09/12/2024 11:50 AM EDT) PSA,Total (Free>4and<10) 0.90 0.00 - 4.00 ng/mL [facility] Comment:A Free PSA was not p erformed: The percentage of Free PSA can be used to enhance the differentiation of prostate cancer from benign prostatic disease in subjects whose PSA levels are between 4.0 and 10.0 ng/mL. For subjects whose PSA levels are below 4.0 or above 10.0 ng/mL, the risk of prostate cancer is determined on the basis of the PSA alone. Therefore the % Free PSA is recommended only for those subjects whose PSA levels are between 4.0 and 10.0 ng/mL.PSA methodology: LaserLeapnity i ChemiluminescentMicroparticle Immunoassay (CMIA) 09/12/2024 11:5 0 AM EDT 09/12/2024 12:58 PM EDT us Generic External Data Provider LAB BLOOD ORDERAB LES Final Result Performing Organization Address [facility] Co de Phone Number [facility] [address] [place] [phone] * Lipid Panel, Standard (09/12/2024 11:50 AM EDT) Triglycerides 111 <150 mg/dL [facility] Comment:Desirable Triglyceri de: less than 150 mg/dLBorderline High Triglyceride 150-199 mg/dLHigh Triglyceride: 200-499 mg/dLVery High Triglyceride: greater than or equal to 5OO mg/dL Cholesterol 120 <200 mg/dL [facility] Comment:Desirable Cholestero l: less than 200 mg/dLBorderline High Cholesterol: 200-239 mg/dLHigh Cholesterol: greater than 239 mg/dL LDL Cholesterol Calculated 55 <100 mg/dL [facility] Comment:Desirable LDL: less than 100 mg/dLNear Optimal/Above Optimal LDL: 110- 129 mg/dLBorderline High LDL: 130-159 mg/dLHigh LDL: 160-189 mg/dLVery High LDL: greater than or equal to 190 mg/dL HDL Cholesterol 43 >40 mg/dL [facility] Comment:Desirable HDL: great er than 40 mg/dL Note: This HDL assay may give artificially low results in patients with liver disease. Blood Venous blood specimen / Unknown 09/12/2024 11:50 AM EDT 09/12/2024 12:55 PM EDT us Danis Solomon MD LAB BLOOD ORDERABLES Final Result Performing Organization Address [facility]/ZIP Co de Phone Number [facility] [address] [place] [address] [phone] * (ABNORMAL) POCT HGB A1C (09/09/2024 2:03 PM EDT) Hemoglobin A1C 8.0(A) 4.0 - 5.7 % QC Media Lot # [id number] Lot# Expiration Date Blood 09/09/2024 2:03 PM EDT Result Jim Solomon MD POINT OF CARE TEST EN TER/EDIT ORDERABLES Final Result * (ABNORMAL) POCT Glucose (09/09/2024 1:58 PM EDT) Glucose Blood, POC 245(A) 60 - 200 mg/dL QC Media Lot # [id number] Lot# Expiration Date Blood Capillary blood specimen / Unknown 09/09/2024 1:58 PM EDT Result Jim Solomon MD POINT OF CARE TEST EN TER/EDIT ORDERABLES Final Result * Hepatitis C Antibody with Reflex to HCV, RNA, Quantitative, Real-Time PCR (06/19/2022 8:29 AM EDT) [facility] Hepatitis C Antibody NON-REACT JIMY NON-REACT JIMY [employer]art Index 0.10 <1.00 [facility] Comment: HCV antibody was non-reactive. There is no laboratory evidence of HCV infection. In most cases, no further action is required. However, if recent HCV exposure is suspected, a test for HCV RNA (test code 84470) is suggested. For additional information please refer to http://education.Cyvera/faq/EOL78f1 (This link is being provided for informational/ educational purposes only.) Blood Venous blood specimen / Unknown 06/19/2022 8:29 AM EDT 06/19/2022 8:29 AM EDT Narrative [facility] - 06/19/2022 10:33 PM EDT FASTING:YES FASTING: YES Result Jim Solomon MD LAB BLOOD ORDERABLES Final Result [facility] [address] [place] [address], [place] [phone] [facility] [address] [place] [phone] * Colonoscopy (12/11/2019) Colonoscopy Normal Normal 12/11/2019 Jessica Montana - 12/11/2019 10:39 AM EDT 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
--- OUTSIDE RECORDS SUMMARY | 2024-11-27 15:07 | XMS_ITS | Encounter Summary ---
Author Organization [employer] Address [address] [facility] [address] 7t [place] [address] Care Team Providers Care Erp Project Manager Name Role Phone Danis Morales MD Primary Care Provide r Encounter Details Date Type Department Care Team (Late st Contact Info) Description 09/01/2024 Refill [facility] [address] [place], [place] [phone] Danis Morales MD [address] [place], [place] [phone] Depressive disorder Social History Tobacco Use Types Packs/Day Years [...] as of this encounter Visit Diagnoses Diagnosis Depressive disorder Depressive disorder, not elsewhere classified documented in this encounter Additional Health Concerns Assessment Noted Time PHQ-9 Depression Total Score: 3 06/11/19 25 1:54 PM EDT documented as of this encounter Care Teams Erp Project Manager Relationship Specialty Start Date End Date Danis Morales MD [address] [place] [address] PCP - General Internal Medicine 11/24/13 documented as of this encounter
--- OUTSIDE RECORDS SUMMARY | 2024-11-27 15:07 | XMS_ITS | Encounter Summary ---
Author Organization [employer] Address 75 [facility] 7t [place] [address] Care Team Providers Care Paving Crew Foreman Name Role Phone Danis Morales MD Primary Care Provide r Encounter Details Date Type Department Care Team (Late st Contact Info) Description 04/13/2022 Orders Only [facility] MED & PEDS [address] [place], [place] [phone] Pat Goldberg LPN Social History Tobacco Use [...] on filedocumented in this encounter Care Teams Paving Crew Foreman Relationship Specialty Start Date End Date Danis Morales MD [address] [place] [address] PCP - General Internal Medicine 11/24/13 documented as of this encounter
--- OUTSIDE RECORDS SUMMARY | 2024-11-27 15:07 | XMS_ITS | Encounter Summary ---
Author Organization [employer] Address [address] [place] [address] 7t [place] [address] Care Team Providers Care Diesel Instructor Name Role Phone Danis Morales MD Primary Care Provide r Reason for Visit * Reason Onset Date Comments Letter for School/Work 11/24/2022 Encounter Details Date Type Department Care Team ([facility] Contact Info) Description 11/24/[address] [facility] MEDICINE [address] [place] [address] Danis Morales MD [address] [place] [address] Letter for School/Work Social History Tobacco Use [...] a letter stating he cannot be spouse [employer] due to asthma, diabetes, 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 For clarification, contact pt at [phone] documented in this encounter Plan of Treatment Not on file documented as of this encounter Visit Diagnoses Not on filedocumented in this encounter Additional Health Concerns Assessment Noted Time PHQ-9 Depression Total Score: 4 06/07/19 23 1:43 PM EDT documented as of this encounter Care Teams Diesel Instructor Relationship Specialty Start Date End Date Danis Morales MD [address] [place] [address] PCP - General Internal Medicine 11/24/13 documented as of this encounter
--- OUTSIDE RECORDS SUMMARY | 2024-11-27 15:07 | XMS_ITS | Encounter Summary ---
Author Organization [employer] Address [address] [facility] 7t [place] [address] Care Team Providers Care Rotary Drum Tanner Name Role Phone Danis Morales MD Primary Care Provide r Encounter Details Date Type Department Care Team (Late st Contact Info) Description 09/25/2022 Orders Only [facility] MED & PEDS [address] [place], [place] [phone] Pat Goldberg LPN Social History Tobacco Use [...] documented as of this encounter Care Teams Rotary Drum Tanner Relationship Specialty Start Date End Date Danis Morales MD [address] [place] [address] PCP - General Internal Medicine 11/24/13 documented as of this encounter
--- OUTSIDE RECORDS SUMMARY | 2024-11-27 15:07 | XMS_ITS | Encounter Summary ---
Author Organization [employer] Address [address] [place] [address] 7t [place] [address] Care Team Providers Care Air Drill Operator Name Role Phone Danis Morales MD Primary Care Provide r Reason for Visit * Reason Onset Date Comments Results 11/24/2022 Encounter Details Date Type Department Care Team ([facility] st Contact Info) Description 11/24/2022 Telephone [facility] MEDICINE 230 [place] [address] Danis Morales MD 230 [place], [place] [phone] Results Social History Tobacco Use Types Packs/Day [...] 3:13 PM EDT T/C to pt. Through [employer] id - [id number] for below message, pt. Verbally agreed and understood. Pt. Also schedule for follow up apt. On 01/04/2023 with PCP. * Telephone Encounter - Lydia Dumont - 11/24/2022 1:19 PM EDT Tc from pt requesting results of labs done 11/23. Please contact pt at [phone] (Armenian) documented in this encounter Plan of Treatment Not on file documented as of this encounter Visit Diagnoses Not on filedocumented in this encounter Additional Health Concerns Assessment Noted Time PHQ-9 Depression Total Score: 4 06/07/19 23 1:43 PM EDT documented as of this encounter Care Teams Air Drill Operator Relationship Specialty Start Date End Date Danis Morales MD 230 [place] [address] PCP - General Internal Medicine 11/24/13 documented as of this encounter
--- OUTSIDE RECORDS SUMMARY | 2024-11-27 15:07 | XMS_ITS | Encounter Summary ---
Author Organization [employer] Address 75 [facility] 7t [place] [address] Care Team Providers Care Quality Director Name Role Phone Danis Morales MD Primary Care Provide r Encounter Details Date Type Department Care Team (Late st Contact Info) Description 10/10/2024 Results Follow-Up [facility] MEDICINE 230 [place] [address] Pattie Josue MD 230 [place] [address] Electrolyte Panel, BUN (Blood Urea Nitrogen), Creatinine, Serum Social History Tobacco Use Types Packs/Day Years [...] as of this encounter Miscellaneous Notes * Result Encounter Note - Pattie Hdez MD - 10/10/2024 8:52 PM EDT Covering PAQ: Labs done by outside provider documented in this encounter Plan of Treatment Not on file documented as of this encounter Visit Diagnoses Not on filedocumented in this encounter Additional Health Concerns Assessment Noted Time PHQ-9 Depression Total Score: 3 06/11/19 25 1:54 PM EDT documented as of this encounter Care Teams Quality Director Relationship Specialty Start Date End Date Danis Morales MD [address] [place] [address] PCP - General Internal Medicine 11/24/13 documented as of this encounter
--- OUTSIDE RECORDS SUMMARY | 2024-11-27 15:07 | XMS_ITS | Clinical Summary ---
Author Organization [facility] Address 175 [place] [address] Phone Care Team Providers Care Utility Worker Name Role Phone Danis Laurent MD Primary [...] 1:30 PM EDT Consult Orthopedic Surgery - [place] [address] [facility] [address] [place] [phone] Kyle Kimball DPM Controlled type 2 diabetes [...] Upcoming Encounters Date Type Department Care Team ([facility] Contact Info) Description 12/16/2024 1:00 PM EDT Office Visit Orthopedic Surgery - [place] [address] 175 [facility] 250 [place] [phone] Kyle Kimblal, JOLANTA 175 [facility] 250 [place] [address] Health Maintenance Due Date Last Done Comments Colorectal Cancer Screening: Colonoscopy 1958 Diabetes: Annual GFR (Glomerular Filtration Rate) 1958 Diabetes: Annual Foot Exam 1968 Diabetes: Annual Retina Eye Exam 1968 RSV Immunization Adult Patients (1 - Risk 60-74 years 1-dose series) 2018 Depression Screening 02/27/2024 Abdominal Aortic Aneurysm (AAA) Screen 07/03/2024 Falls Risk Assessment 07/03/2024 Medicare Annual Wellness Visit 07/03/2024 Social Influencers of Health Screening 07/03/2024 Diabetes: Annual Urine Albumin-Creatinine Ratio (uACR) 09/15/2024 COVID-19 Vaccine ( season) 2024 02/23/2021, 05/21/2020, 04/23/2020 Influenza Vaccine (#1) 2024 , 12/05/2022, 12/23/2021, [...] patient's age to complete this topic Insurance [facility] Member Subscriber Plan / Payer (Ef fective 2023-Present) Name:SANCHO IGNACIO Relation to Subscriber:Self Name:Sancho Ignacio Payer ID:[id number] Group ID:[id number] Type:Not on file Address: [place] [address] [address] [place] [id number] Care Teams Utility Worker Relationship Specialty Start Date End Date Danis Laurent MD 230 [place] [address] PCP - General Internal Medicine 07/03/24
--- OUTSIDE RECORDS SUMMARY | 2024-11-27 15:07 | XMS_ITS | Encounter Summary ---
Author Organization [employer] Address 75 [facility] 7t [place] [address] Care Team Providers Care Racetrack Steward Name Role Phone Danis Morales MD Primary Care Provide r Encounter Details Date Type Department Care Team (Late st Contact Info) Description 06/28/2022 Abstract [facility] MEDICINE [address] [place] [address] Danis Morales MD 230 [place] [address] Social History Tobacco Use Types Packs/Day Years [...] Colonoscopy (12/11/2019) Colonoscopy Normal Normal 12/11/2019 Narrative Jessica Galvan - 12/11/2019 10:39 AM EDT 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
--- OUTSIDE RECORDS SUMMARY | 2024-11-27 15:07 | XMS_ITS | Encounter Summary ---
Author Organization [employer] Address 75 [facility] 7t [place] [address] Care Team Providers Care Loader Unloader Name Role Phone Danis Morales MD Primary Care Provide r Encounter Details Date Type Department Care Team (Late st Contact Info) Description 04/10/2022 Orders Only [facility] MEDICINE [address] [place], [place] [phone] Ailin Kumar LPN Social History Tobacco Use [...] on filedocumented in this encounter Care Teams Loader Unloader Relationship Specialty Start Date End Date Danis Morales MD [address] [place] [address] PCP - General Internal Medicine 11/24/13 documented as of this encounter
--- OUTSIDE RECORDS SUMMARY | 2024-11-27 15:07 | XMS_ITS | Encounter Summary ---
Author Organization [employer] Address 75 [facility] 7t [place] [address] Care Team Providers Care Music Industry Intern Name Role Phone Danis Morales MD Primary Care Provide r Encounter Details Date Type Department Care Team (Late st Contact Info) Description 02/16/2022 Orders Only [facility] 230 [place] [address] Ailin Kumar LPN Social History Tobacco Use [...] on filedocumented in this encounter Care Teams Music Industry Intern Relationship Specialty Start Date End Date Danis Morales MD 230 [place] [address] PCP - General Internal Medicine 11/24/13 documented as of this encounter
== END 2024-11-27 14:38 | disposition home or self-care (01) ==
LOC: HO.HGI 13:37
PROVIDERS: PCP Internal Medicine; Visit Provider Nurse Practitioner
DX: R13.10 Dysphagia, unspecified (principal); K58.1 Irritable bowel syndrome with constipation; Z01.818 Encounter for other preprocedural examination; Z12.11 Encounter for screening for malignant neoplasm of colon; Z86.0101 Personal history of adenomatous and serrated colon polyps; K31.84 Gastroparesis
CPT/HCPCS: 99214

== ENCOUNTER 2024-12-01 11:14 | Outpatient (REF) | payer OTHER, SELFPAY ==
--- NOTE | ~2024-12-01 | US_ITS ---
CLINICAL HISTORY: N40.1 - Benign prostatic hyperplasia with lower urinary tract symptoms --- Additional Notes or Special Instructions: please measure prostate US Urinary Bladder Comparison: None Findings: The urinary bladder is unremarkable. Prevoid volume: 336 mLPostvoid volume: 34 mL Ureteral jets are visualized bilaterally. The bladder wall is mildly trabeculated. The prostate gland is enlarged at 44 mL. IMPRESSION: Mildly trabeculated bladder with prostate gland enlargement small postvoid residual. This document has been electronically signed by: Elijah Banks MD on 12/02/2024 11:17:32
--- OUTSIDE RECORDS SUMMARY | 2024-12-01 13:49 | XMS_ITS | Encounter Summary ---
Author Organization [employer] Address 75 [facility] 7t [place] [address] Care Team Providers Care Braiding Machine Tender Name Role Phone Danis Morales MD Primary Care Provide r Encounter Details Date Type Department Care Team (Late st Contact Info) Description 09/25/2022 Orders Only [facility] CH[facility] MED & PEDS [address] [place], [place] [phone] Pat Goldberg LPN Social History Tobacco Use [...] documented as of this encounter Care Teams Braiding Machine Tender Relationship Specialty Start Date End Date Danis Morales MD [address] [place] [address] PCP - General Internal Medicine 11/24/13 documented as of this encounter
--- OUTSIDE RECORDS SUMMARY | 2024-12-01 13:49 | XMS_ITS | Encounter Summary ---
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
--- OUTSIDE RECORDS SUMMARY | 2024-12-01 13:49 | XMS_ITS | Encounter Summary ---
Author Organization [employer] Address [address] [place] [address] 7t [place] [address] Care Team Providers Care Paving Machine Operator Name Role Phone Danis Morales MD Primary Care Provide r Encounter Details Date Type Department Care Team (Late st Contact Info) Description 09/07/2022 Orders Only [facility] MEDICINE 230 [place], [place] [phone] Ailin Kumar LPN Social History Tobacco Use [...] documented as of this encounter Care Teams Paving Machine Operator Relationship Specialty Start Date End Date Danis Morales MD [address] [place], [place] [phone] PCP - General Internal Medicine 11/24/13 documented as of this encounter
--- OUTSIDE RECORDS SUMMARY | 2024-12-01 13:49 | XMS_ITS | Encounter Summary ---
Author Organization [employer] Address 75 [facility] 7t [place] [address] Care Team Providers Care Ethics Instructor Name Role Phone Danis Morales MD Primary Care Provide r Encounter Details Date Type Department Care Team (Late st Contact Info) Description 02/16/2022 Orders Only [facility] 230 [place] [address] Ailin Kumar LPN Social History Tobacco Use [...] on filedocumented in this encounter Care Teams Ethics Instructor Relationship Specialty Start Date End Date Danis Morales MD 230 [place] [address] PCP - General Internal Medicine 11/24/13 documented as of this encounter
--- OUTSIDE RECORDS SUMMARY | 2024-12-01 13:49 | XMS_ITS | Encounter Summary ---
Author Organization [employer] Address 75 [facility] 7t [place] [address] Care Team Providers Care Dowel Maker Name Role Phone Danis Morales MD Primary Care Provide r Encounter Details Date Type Department Care Team (Late st Contact Info) Description 11/27/2024 Orders Only GENERIC EXTERNAL DATA DEPARTMENT Provider, [...] Procedure Name Priority Date/Time Associated Diagnosis Comments CBC WITH AUTO DIFFERENTIAL Routine 11/27/2024 2:52 PM EDT COMPREHENSIVE METABOLIC PANEL Routine 11/27/2024 2:52 PM EDT documented in this encounter Results * (ABNORMAL) Comprehensive Metabolic Panel (11/27/2024 2:52 PM EDT) Sodium 138 135 - 145 mmol/L [facility] Potassium 4.7 3.3 - 5.1 mmol/L [facility] Comment:Slight Hemolysis.Int erpret result with caution. Chloride 107 96 - 108 mmol/L [facility] Carbon Dioxide 23 22 - 29 mmol/L [facility] Anion Gap 13 12 - 20 [facility] Urea Nitrogen (BUN) 17(H) 9 - 16 mg/dL [facility] Creatinine, Serum 1.15 0.5 - 1.4 mg/dL [facility] Estimated Glomerular Filt Rate >60 [facility] Comment:Chronic Kidney Disea se: Estimated GFR < 60 mL/min/[id number] Kidney Disease: Estimated GFR < 15 mL/min/1.73m2 Glucose 100 60 - 115 mg/dL [facility] Calcium 9.4 8.4 - 10.2 mg/dL [facility] Bilirubin, Total 0.2 0.0 - 1.0 mg/dL [facility] Aspartate Amino Transferase 28 5 - 37 U/L [facility] Comment:Slight Hemolysis.Int erpret result with caution. Alanine Aminotransferase 28 0 - 40 U/L [facility] Total Protein 8.4(H) 6.5 - 8.0 g/dL [facility] Albumin Level 4.4 3.5 - 5.0 g/dL [facility] Alkaline Phosphatase 69 39 - 117 U/L [facility] 11/27/2024 2:52 PM EDT 11/27/2024 2:52 PM EDT us Generic External Data Provider LAB BLOOD ORDERAB LES Final Result [facility] [address] [place] [address] [phone] * (ABNORMAL) CBC auto differential (11/27/2024 2:52 PM EDT) White Blood Count 13.1(H) 4.8 - 10.8 X10*3/uL [facility] Red Blood Count 5.16 4.60 - 5.80 X10*6/uL [facility] Hemoglobin 15.2 14.0 - 18.0 g/dl [facility] Hematocrit 46.2 42.0 - 52.0 % [facility] Mean Corpuscular Volume 89.5 80.0 - 98.0 fL [facility] Mean Corpuscular Hemoglobin 29.5 27.0 - 33.0 pg [facility] Mean Corpuscular HGB Conc 32.9 31.0 - 36.0 g/dl [facility] Red Cell Distribution Width 14.8 11.0 - 16.0 % [facility] Platelet Count 226 160 - 400 X10*3/uL [facility] Mean Platelet Volume 9.1(L) 9.4 - 12.4 fL [facility] Neutrophils Percent Auto 58.9 45 - 73 % [facility] Imm Gran Pct Auto 0.6(H) 0.0 - 0.4 % [facility] Lymphocytes Percent Auto 23.4 20 - 40 % [facility] Monocytes Percent Auto 9.7 2 - 11 % [facility] Eosinophils Percent Auto 6.6(H) 0 - 4 % [facility] Basophils Percent Auto 0.8 0 - 2 % [facility] NRBC Pct Auto 0.0 0.0 - 0.2 /100WBC [facility] Neutrophils Absolute Auto 7.7 2.0 - 8.3 x10*3/uL [facility] Imm Gran Abs Auto 0.08(H) 0.00 - 0.03 X10*3/uL [facility] Lymphocytes Absolute Auto 3.1 1.2 - 4.9 X10*3/uL [facility] Monocytes Absolute Auto 1.3(H) 0.1 - 1.2 X10*3/uL [facility] Eosinophils Absolute Auto 0.9(H) 0.0 - 0.4 X10*3/uL [facility] Basophils Absolute Auto 0.1 0.0 - 0.2 X10*3/uL [facility] NRBC Abs Auto 0.000 0.0 - 0.012 X10*3/uL [facility] 11/27/2024 2:52 PM EDT 11/27/2024 2:52 PM EDT us Generic External Data Provider LAB BLOOD ORDERAB LES Final Result [facility] [address] [place] [address] [phone] documented in this encounter Visit Diagnoses Not on filedocumented in this encounter Additional Health Concerns Assessment Noted Time PHQ-9 Depression Total Score: 3 06/11/19 25 1:54 PM EDT documented as of this encounter Care Teams Dowel Maker Relationship Specialty Start Date End Date Danis Morales MD [address] [place] [address] PCP - General Internal Medicine 11/24/13 documented as of this encounter
--- OUTSIDE RECORDS SUMMARY | 2024-12-01 13:49 | XMS_ITS | Encounter Summary ---
Author Organization [employer] Address 75 [facility] 7t [place] [address] Care Team Providers Care Branch Mechanic Name Role Phone Danis Morales MD Primary Care Provide r Encounter Details Date Type Department Care Team (Late st Contact Info) Description 10/10/2024 Results Follow-Up [facility] MEDICINE [address] [place] [address] Pattie Josue MD [address] [place] [address] Electrolyte Panel, BUN (Blood Urea Nitrogen), Creatinine, [...] documented as of this encounter Care Teams Branch Mechanic Relationship Specialty Start Date End Date Danis Morales MD [address] [place] [address] PCP - General Internal Medicine 11/24/13 documented as of this encounter
--- OUTSIDE RECORDS SUMMARY | 2024-12-01 13:49 | XMS_ITS | Encounter Summary ---
Author Organization [employer] Address [address] [facility] [address] 7t [place] [address] Care Team Providers Care Woodworking Shop Hand Name Role Phone Danis Morales MD Primary Care Provide r Encounter Details Date Type Department Care Team (Late st Contact Info) Description 09/01/2024 Refill [facility] [address] [place], [place] [phone] Danis Morales MD [address] [place], [place] [phone] Depressive disorder Social History Tobacco Use Types [...] documented as of this encounter Care Teams Woodworking Shop Hand Relationship Specialty Start Date End Date Danis Morales MD [address] [place] [address] PCP - General Internal Medicine 11/24/13 documented as of this encounter
--- OUTSIDE RECORDS SUMMARY | 2024-12-01 13:49 | XMS_ITS | Clinical Summary ---
Author Organization [employer] Address [address] [facility] [address] [place] [address] Care Team Providers Care Furnace Repairer Helper Name Role Phone Danis Morales MD Primary [...] record from that organization. [employer] Short Pen Axson 31G X 8 MM miscIndication s:Type 2 diabetes mellitus without complication, unspecified whether intermediate accountant insulin use USE EVERY EVENING 100 each 3 023 Active montelukast (Singulair) 10 MG tablet TAKE 1 TABLET BY MOUTH EVERY EVENING 30 tablet 6 024 Active Continuous Glucose Mortgage Loan Reviewer (FreeStyle Briana 2 Luck) deviceIndicati ons:Type 2 diabetes mellitus without complication, with long-term current use of insulin ([facility]) Scan sensor every 8 hours 1 each 3 024 Active Continuous Glucose Sensor (FreeStyle Briana 2 Sensor) miscIndication s:Type 2 diabetes mellitus without complication, with long-term current use of insulin ([facility]) Apply 1 sensor every 14 [...] complication, with long-term current use of insulin ([facility]) INJECT 42 UNITS SUBCUTANEOUSLY AT [...] complication, with long-term current use of insulin ([facility]) TAKE 1 TABLET BY MOUTH [...] medication). CKD stage 3a, GFR 45-59 ml/min ([facility]) 024 Assessment & Plan (09/09/2024 1:53 PM [...] Plan (08/23/2023 11:56 AM EDT): Evaluated by Chair Springer Dr Ocampo Stress testing 06/2023 Negative for [...] were wnl. Pt currently following with GI. [facility] health care 06/06/2022 Assessment & Plan (06/10/2024 [...] work up. He was seen by a seo specialist (Dr Patel) last seen 04/13/2015 he repeated his PFTs that were almost normal so he recommended to DC Advair and Spiriva and keep him on Albuterol prn only Of note pt has had PFT'S and [place] [facility] [place]. Pt is on Advair HFA 250/50, Singulair and Albuterol He is now under the care of Dr Pa Watson, last seen 03/14/2024 Assessment & Plan (09/27/2023 2:39 PM EDT): Doing well, no recent exacerbation Pt has a Hx of a chronic cough for which he had an extensive pulmonary work up. He was seen by a seo specialist (Dr Patel) last seen 04/13/2015 he repeated his PFTs that were almost normal so he recommended to DC Advair and Spiriva and keep him on Albuterol prn only Of note pt has had PFT'S and a [place]ach[place] [facility] [place]. Pt is on Advair HFA 250/50, Singulair and Albuterol He is now under the care of Dr Pa Watson, last seen 09/10/2023 Assessment & Plan (08/23/2023 11:46 AM EDT): Doing well, no recent exacerbation Pt has a Hx of a chronic cough for which he had an extensive pulmonary work up. He was seen by a seo specialist (Dr Patel) last seen 04/13/2015 he repeated his PFTs that were almost normal so he recommended to DC Advair and Spiriva and keep him on Albuterol prn only Of note pt has had PFT'S and a [place]ach[place] challenge [place] [facility] [place]. Pt is on Advair HFA 250/50 and Albuterol He is now under the care of Dr Pa Watson, last seen 02/2023 Assessment & Plan (06/06/2022 1:47 PM EDT): Doing well, no recent exacerbation Pt has a Hx of a chronic cough for which he had an extensive pulmonary work up. He was seen by a seo specialist (Dr Patel) last seen 04/13/2015 he repeated his PFTs that were almost normal so he recommended to DC Advair and Spiriva and keep him on Albuterol prn only Of note pt has had PFT'S and a Methacholine challenge [place] [facility] [place]. Pt is on Advair [...] 7 Eye exam last done by Dr Connor(systems administration analyst). Microalbumin checked on: 06/20/2023 was: 0.4 Pt is not on an JOSEPHINE inhibitor/ARB due to previous concerns of cough induced by JOSEPHINE and borderline low blood pressure. Foot check risk of zero Pt reports compliance with Asa 81 mg po daily Pt advised to: adhere to diabetic diet check your blood sugars regularly check your feet on a daily basis Plan: As per [facility] [place] Assessment & Plan (06/10/2024 2:11 PM [...] 7 Eye exam last done by Dr Connor(systems administration analyst). Microalbumin checked on: 06/20/2023 was: 0.4 Pt [...] medications. Eye exam last done by Dr Connor(systems administration analyst). Microalbumin checked on: 06/20/2023 was: 0.4 Pt [...] medications. Eye exam last done by Dr Connor(systems administration analyst). Microalbumin checked on: 04/19/2020 was: 1.4 Pt is not on an JOSEPHINE inhibitor/ARB due to previous concerns of cough induced by JOSEPHINE and borderline low blood pressure. Foot check risk of zero Pt reports compliance with Asa 81 mg po daily Pt advised to: adhere to diabetic diet check your blood sugars regularly check your feet on a daily basis Plan: As per [facility] [place] Assessment & Plan (08/23/2023 11:45 AM [...] Endocrinology Eye exam last done by Dr Connor(systems administration analyst). Microalbumin checked on: 04/19/2020 was: 1.4 Pt is not on an JOSEPHINE inhibitor/ARB due to previous concerns of cough induced by JOSEPHINE and borderline low blood pressure. Foot check risk of zero Pt reports compliance with Asa 81 mg po daily Pt advised to: adhere to diabetic diet check your blood sugars regularly check your feet on a daily basis Plan: As per [facility] [place] Assessment & Plan (01/04/2023 2:30 PM [...] was asked to schedule an appointment at [facility] [place], pt insisted that he had one at [facility] but it seems he was confused He was evaluated by our natural resources extension educator and Ship Pilot Dispatcher Eye exam last done by Dr Connor(systems administration analyst). Microalbumin checked on: 04/19/2020 was: 1.4 Pt [...] a daily basis Plan: referred back to [facility] [place] Assessment & Plan (10/10/2022 1:36 PM [...] referred back to Endocrinology Plan: referal to natural resources extension educator and Ship Pilot Dispatcher as well as Director Community Center at [facility] check BG regularly Increase Lantus to 42 units subcutaneous qhs f/u 3 months with me Eye exam was last done on: 08/24/16. by Dr. Dr Connor(systems administration analyst). Microalbumin checked on: 04/19/2020 was: 1.4 Pt [...] last done on: 08/24/16. by Dr. Dr Connor(systems administration analyst). Microalbumin checked on: 04/19/2020 was: 1.4 Pt [...] under the care of Thoracic surgery at [facility]. Pt seemed convinced that this is contributing to his chronic cough and wanted to have it excised. Pt is now s/p R VATS/pericardial cyst resection by Dr Melissa Smith at [facility] [place] on 07/10/2012 Pt was noted to be tachycardic during the post op period and started on Cardizem with good effects. For pain control he is using percocet as needed. Pt was last seen by Dr Smith on: 08/28/2012 Pt was seen again for f/u by jin Bhat at [facility] [place] on 11/05/13 who recommended NO further [...] a psychotherapist her name is janes Nieves: [phone] Patient denies any suicidal ideation or thoughts, [...] a psychotherapist her name is janes Nieves: [phone] Patient denies any suicidal ideation or thoughts, Patient has crisis numbers and knows to use them if needed He is seeing advertiser Ino Walton , last seen 05/22/2024 On Zolpidem and Zoloft Assessment & Plan (02/07/2024 2:43 PM EST): Patient is no longer under the care of Dr Frantz Mead, see med list for current psych meds. He is seeing a psychotherapist her name is janes Nieves: [phone] Patient denies any suicidal ideation or thoughts, [...] Encounters Date Type Department Care Team Description 11/27/2024 Orders Only GENERIC EXTERNAL DATA DEPARTMENT Provider, Generic External Data 11/17/2024 Refill [facility] [address] [place] [address] Danis Morales MD 11/15/2024 Refill [facility] [address] [place] [address] Dnais Morales MD Type 2 diabetes mellitus without complication, with long-term current use of insulin ([facility]) 10/24/2024 Telephone [facility] [address] [place] [address] Danis Morales MD Appointment 10/10/2024 Results Follow-Up [facility] [address] [place] [address] Pattie Josue MD Electrolyte Panel, BUN (Blood Urea Nitrogen), Creatinine, Serum 10/10/2024 Orders Only GENERIC EXTERNAL DATA DEPARTMENT Provider, Generic External Data 09/23/2024 Refill [facility] [address] [place] [address] Danis Morales MD 09/22/2024 Refill [facility] [address] [place] [address] Danis Morales MD 09/18/2024 Refill [facility] [address] [place] [address] Danis Morales MD 09/12/2024 Orders Only GENERIC EXTERNAL DATA DEPARTMENT Provider, Generic External Data 09/09/2024 2:00 PM EDT Office Visit [facility] [address] [place] [address] Danis Morales MD Gastroesophageal reflux disease without esophagitis (Primary Dx); Type 2 diabetes mellitus with stage 3a chronic kidney disease, with long-term current use of insulin ([facility]); Posterior chest pain; Bilateral lower extremity pain; Depressive disorder; CKD stage 3a, GFR 45-59 ml/min ([facility]); Overweight (BMI 25.0-29.9); Dietary counseling; Exercise counseling; Mixed hyperlipidemia 09/09/2024 Travel 09/08/2024 Telephone [facility] [address] [place] [address] Danis Morales MD chart prep 09/01/2024 Refill [facility] [address] [place] [address] Danis Morales MD Depressive disorder 09/01/2024 Refill [facility] [address] [place] [address] Danis Morales MD Depressive disorder from Last [...] 2024 , 12/05/2022, 12/23/2021, Additional history exists Colonoscopy 12/10/2024 12/11/2019 Colorectal Cancer Screening 12/10/2024 Diabetes: Hemoglobin A1C 12/10/2024 025, 06/10/2024, 02/07/2024, Additional history exists SDOH Screening 05/27/2025 05/27/2024 Alcohol/Substance Use Screening 06/10/2025 06/10/2024 Depression Screening 06/10/2025 06/10/2024, 06/11/19 25 Tobacco Screening 06/25/2025 06/25/2024 Lipid Panel 09/12/2025 [...] Procedure Name Priority Date/Time Associated Diagnosis Comments COMPREHENSIVE METABOLIC PANEL Routine 11/27/2024 2:52 PM EDT CBC WITH AUTO DIFFERENTIAL Routine 11/27/2024 2:52 PM EDT CREATININE, SERUM Routine 10/10/2024 2:1 1 PM EDT UREA NITROGEN (BUN) Routine 10/10/2024 2 :11 PM EDT ELECTROLYTE PANEL Routine 10/10/2024 2:1 1 PM EDT PSA, TOTAL WITH REFLEX TO PSA, FREE Routine 09/12/2024 11:50 AM EDT LIPID PANEL, STANDARD Routine 09/12/2024 11:50 AM EDT Type 2 diabetes mellitus with stage 3a chronic kidney disease, with long-term current use of insulin ([facility]) Mixed hyperlipidemia POCT GLYCATED HEMOGLOBIN, TOTAL Routine 09/09/2024 2:03 PM EDT Type 2 diabetes mellitus with stage 3a chronic kidney disease, with long-term current use of insulin ([facility]) POCT GLUCOSE Routine 09/09/2024 1:58 PM EDT Type 2 diabetes mellitus with stage 3a chronic kidney disease, with long-term current use of insulin ([facility]) HEPATITIS C AB W/REFL TO HCV RNA, QN, PCR Routine 06/19/2022 8:29 AM EDT Mixed hyperlipidemia HM COLONOSCOPY Routine 12/11/2019 from Last 3 Months or Most Recently Relevant to Health Maintenance Results * (ABNORMAL) CBC auto differential (11/27/2024 2:52 PM EDT) White Blood Count 13.1(H) 4.8 - 10.8 X10*3/uL [facility] Red Blood Count 5.16 4.60 - 5.80 X10*6/uL [facility] Hemoglobin 15.2 14.0 - 18.0 g/dl [facility] Hematocrit 46.2 42.0 - 52.0 % [facility] Mean Corpuscular Volume 89.5 80.0 - 98.0 fL [facility] Mean Corpuscular Hemoglobin 29.5 27.0 - 33.0 pg [facility] Mean Corpuscular HGB Conc 32.9 31.0 - 36.0 g/dl [facility] Red Cell Distribution Width 14.8 11.0 - 16.0 % [facility] Platelet Count 226 160 - 400 X10*3/uL [facility] Mean Platelet Volume 9.1(L) 9.4 - 12.4 fL [facility] Neutrophils Percent Auto 58.9 45 - 73 % [facility] Imm Gran Pct Auto 0.6(H) 0.0 - 0.4 % [facility] Lymphocytes Percent Auto 23.4 20 - 40 % [facility] Monocytes Percent Auto 9.7 2 - 11 % [facility] Eosinophils Percent Auto 6.6(H) 0 - 4 % [facility] Basophils Percent Auto 0.8 0 - 2 % [facility] NRBC Pct Auto 0.0 0.0 - 0.2 /100WBC [facility] Neutrophils Absolute Auto 7.7 2.0 - 8.3 x10*3/uL [facility] Imm Gran Abs Auto 0.08(H) 0.00 - 0.03 X10*3/uL [facility] Lymphocytes Absolute Auto 3.1 1.2 - 4.9 X10*3/uL [facility] Monocytes Absolute Auto 1.3(H) 0.1 - 1.2 X10*3/uL [facility] Eosinophils Absolute Auto 0.9(H) 0.0 - 0.4 X10*3/uL [facility] Basophils Absolute Auto 0.1 0.0 - 0.2 X10*3/uL [facility] NRBC Abs Auto 0.000 0.0 - 0.012 X10*3/uL [facility] 11/27/2024 2:52 PM EDT 11/27/2024 2:52 PM EDT us Generic External Data Provider LAB BLOOD ORDERAB LES Final Result [facility] [address] [place] [phone] * (ABNORMAL) Comprehensive Metabolic Panel (11/27/2024 2:52 PM EDT) Sodium 138 135 - 145 mmol/L [facility] Potassium 4.7 3.3 - 5.1 mmol/L [facility] Comment:Slight Hemolysis.Int erpret result with caution. Chloride 107 96 - 108 mmol/L [facility] Carbon Dioxide 23 22 - 29 mmol/L [facility] Anion Gap 13 12 - 20 [facility] Urea Nitrogen (BUN) 17(H) 9 - 16 mg/dL [facility] Creatinine, Serum 1.15 0.5 - 1.4 mg/dL [facility] Estimated Glomerular Filt Rate >60 [facility] Comment:Chronic Kidney Disea se: Estimated GFR < 60 mL/min/1.19d7Whhdjt Kidney Disease: Estimated GFR < 15 mL/min/1.73m2 Glucose 100 60 - 115 mg/dL [facility] Calcium 9.4 8.4 - 10.2 mg/dL [facility] Bilirubin, Total 0.2 0.0 - 1.0 mg/dL [facility] Aspartate Amino Transferase 28 5 - 37 U/L [facility] Comment:Slight Hemolysis.Int erpret result with caution. Alanine Aminotransferase 28 0 - 40 U/L [facility] Total Protein 8.4(H) 6.5 - 8.0 g/dL [facility] Albumin Level 4.4 3.5 - 5.0 g/dL [facility] Alkaline Phosphatase 69 39 - 117 U/L [facility] 11/27/2024 2:52 PM EDT 11/27/2024 2:52 PM EDT us Generic External Data Provider LAB BLOOD ORDERAB LES Final Result [facility] [address] [place] [phone] [phone] * Creatinine, Serum (10/10/2024 2:11 PM EDT) Creatinine, Serum 1.18 0.5 - 1.4 mg/dL [facility] Estimated Glomerular Filt Rate >60 [facility] Comment:Chronic Kidney Disea se: Estimated GFR < 60 mL/min/1.52w8Dcimod Kidney Disease: Estimated GFR < 15 mL/min/1.73m2 10/10/2024 2:11 PM EDT 10/10/2024 2:12 PM EDT us Generic External Data Provider LAB BLOOD ORDERAB LES Final Result Performing Organization Address [facility] Co de Phone Number [facility] [address] [place] [phone] * (ABNORMAL) BUN (Blood Urea Nitrogen) (10/10/2024 2:11 PM EDT) Urea Nitrogen (BUN) 21(H) 9 - 16 mg/dL [facility] 10/10/2024 2:11 PM EDT 10/10/2024 2:12 PM EDT us Generic External Data Provider LAB BLOOD ORDERAB LES Final Result Performing Organization Address [facility] de Phone Number [facility] [address] [place] [phone] * Electrolyte Panel (10/10/2024 2:11 PM EDT) Sodium 138 135 - 145 mmol/L [facility] Potassium 4.5 3.3 - 5.1 mmol/L [facility] Chloride 104 96 - 108 mmol/L [facility] Carbon Dioxide 22 22 - 29 mmol/L [facility] Anion Gap 17 12 - 20 [facility] 10/10/2024 2:11 PM EDT 10/10/2024 2:12 PM EDT us Generic External Data Provider LAB BLOOD ORDERAB LES Final Result Performing Organization Address [facility] Co de Phone Number [facility] [address] [place] [phone] * PSA, Total With Reflex to PSA, Free (09/12/2024 11:50 AM EDT) PSA,Total (Free>4and<10) 0.90 0.00 - 4.00 ng/mL [facility] Comment:A Free PSA was not p [...] are between 4.0 and 10.0 ng/mL.PSA methodology: Zoondynity i ChemiluminescentMicroparticle Immunoassay (CMIA) 09/12/2024 11:5 0 AM EDT 09/12/2024 12:58 PM EDT us Generic External Data Provider LAB BLOOD ORDERAB LES Final Result [facility] [address] [place] [phone] * Lipid Panel, Standard (09/12/2024 11:50 AM EDT) Triglycerides 111 <150 mg/dL [facility] Comment:Desirable Triglyceri de: less than 150 mg/dLBorderline High Triglyceride 150-199 mg/dLHigh Triglyceride: 200-499 mg/dLVery High Triglyceride: greater than or equal to 5OO mg/dL Cholesterol 120 <200 mg/dL [facility] Comment:Desirable Cholestero l: less than 200 mg/dLBorderline High Cholesterol: 200-239 mg/dLHigh Cholesterol: greater than 239 mg/dL LDL Cholesterol Calculated 55 <100 mg/dL [facility] Comment:Desirable LDL: less than 100 mg/dLNear Optimal/Above Optimal LDL: 110- 129 mg/dLBorderline High LDL: 130-159 mg/dLHigh LDL: 160-189 mg/dLVery High LDL: greater than or equal to 190 mg/dL HDL Cholesterol 43 >40 mg/dL [facility] Comment:Desirable HDL: great er than 40 mg/dL Note: This HDL assay may give artificially low results in patients with liver disease. Blood Venous blood specimen / Unknown 09/12/2024 11:50 AM EDT 09/12/2024 12:55 PM EDT Danis Solomon MD LAB BLOOD ORDERABLES Final Result [facility] [address] [place] [address] [phone] * (ABNORMAL) POCT HGB A1C (09/09/2024 2:03 PM EDT) Hemoglobin A1C 8.0(A) 4.0 - 5.7 % QC Media Lot # [id number] Lot# Expiration Date Blood 09/09/2024 2:03 PM EDT Danis Solomon MD POINT OF CARE TEST EN TER/EDIT ORDERABLES Final Result * (ABNORMAL) POCT Glucose (09/09/2024 1:58 PM EDT) Glucose Blood, POC 245(A) 60 - 200 mg/dL QC Media Lot # [id number] Lot# Expiration Date Blood Capillary blood specimen / Unknown 09/09/2024 1:58 PM EDT Danis Solomon MD POINT OF CARE TEST EN TER/EDIT ORDERABLES Final Result * Hepatitis C Antibody with Reflex to HCV, RNA, Quantitative, Real-Time PCR (06/19/2022 8:29 AM EDT) Hepatitis C Antibody NON-REACT JIMY NON-REACT JIMY [employer] [facility] Index 0.10 <1.00 [employer] [facility] Comment: HCV antibody was non-reactive. There is no laboratory evidence of HCV infection. In most cases, no further action is required. However, if recent HCV exposure is suspected, a test for HCV RNA (test code 25577) is suggested. For additional information please refer to http://[employer]/faq/GWU48r0 (This link is being provided for informational/ educational purposes only.) Blood Venous blood specimen / Unknown 06/19/2022 8:29 AM EDT 06/19/2022 8:29 AM EDT Narrative [facility] - 06/19/2022 10:33 PM EDT FASTING:YES FASTING: YES Danis Solomon MD LAB BLOOD ORDERABLES Final Result [facility] [address], [place] [phone] [employer] [place] [facility] [address] [place] [phone] * Colonoscopy (12/11/2019) Colonoscopy Normal Normal 12/11/2019 Jessica Montana - 12/11/2019 10:39 AM EDT 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
--- OUTSIDE RECORDS SUMMARY | 2024-12-01 13:49 | XMS_ITS | Encounter Summary ---
Author Organization [employer] Address [address] [facility] [address] [place] [address] Care Team Providers Care Student Financial Aid Manager Name Role Phone Danis Morales MD Primary Care Provide r Encounter Details Date Type Department Care Team (Late st Contact Info) Description 04/13/2022 Orders Only [facility] [address] [place], [place] [phone] Pat Goldberg LPN Social History Tobacco Use [...] on filedocumented in this encounter Care Teams Student Financial Aid Manager Relationship Specialty Start Date End Date Danis Morales MD [address] [place] [address] PCP - General Internal Medicine 11/24/13 documented as of this encounter
--- OUTSIDE RECORDS SUMMARY | 2024-12-01 13:49 | XMS_ITS | Encounter Summary ---
Author Organization [employer] Address [address] [facility] [address] [place] [address] Care Team Providers Care Production Finisher Name Role Phone Danis Morales MD Primary Care Provide r Encounter Details Date Type Department Care Team (Late st Contact Info) Description 05/30/2022 Orders Only [facility] [address] [place] [address] Pat Goldberg LPN Social History Tobacco Use [...] on filedocumented in this encounter Care Teams Production Finisher Relationship Specialty Start Date End Date Danis Morales MD [address] [place] [phone] PCP - General Internal Medicine 11/24/13 documented as of this encounter
--- OUTSIDE RECORDS SUMMARY | 2024-12-01 13:49 | XMS_ITS | Encounter Summary ---
Author Organization [employer] Address [address] [facility] [address] [place] [address] Care Team Providers Care Shank Sander Name Role Phone Danis Morales MD Primary Care Provide r Encounter Details Date Type Department Care Team (Late st Contact Info) Description 04/10/2022 Orders Only [facility] [address] [place], [place] [phone] Ailin Kumar LPN Social History Tobacco Use [...] on filedocumented in this encounter Care Teams Shank Sander Relationship Specialty Start Date End Date Danis Morales MD [address] [place] [address] PCP - General Internal Medicine 11/24/13 documented as of this encounter
--- OUTSIDE RECORDS SUMMARY | 2024-12-01 13:49 | XMS_ITS | Encounter Summary ---
Author Organization [employer] Address [address] [facility] 7t [place] [address] Care Team Providers Care Business Practices Supervisor Name Role Phone Danis Morales MD Primary Care Provide r Encounter Details Date Type Department Care Team ([facility] st Contact Info) Description 06/28/2022 Abstract [facility] MEDICINE [address] [place] [address] Danis Morales MD 230 [place] [address] Social History Tobacco Use Types Packs/Day Years [...] scanned report )[facility] [place] Historical Provider HEALTH MAINTENANCE Final Result documented in this encounter Visit Diagnoses Not on filedocumented in this encounter Additional Health Concerns Assessment Noted Time PHQ-9 Depression Total Score: 4 06/07/19 23 1:43 PM EDT documented as of this encounter Care Teams Business Practices Supervisor Relationship Specialty Start Date End Date Danis Morales MD [address] [place] [address] PCP - General Internal Medicine 11/24/13 documented as of this encounter
--- OUTSIDE RECORDS SUMMARY | 2024-12-01 13:49 | XMS_ITS | Clinical Summary ---
Author Organization 175 [facility] Address 175 [place] [address] Phone Care Team Providers Care Float Tender Name Role Phone Danis Laurent MD Primary [...] 1:30 PM EDT Consult Orthopedic Surgery - [place] 250 175 [facility] [address] [place] [phone] Kyle Kimball DPM Controlled type 2 diabetes [...] Upcoming Encounters Date Type Department Care Team ([facility] Contact Info) Description 12/16/2024 1:00 PM EDT Office Visit Orthopedic Surgery - [place] 250 175 [facility] 250 [place] [phone] Kyle Kimball, JOLANTA 175 [facility] 250 [place] [address] Health Maintenance Due Date Last Done Comments [...] patient's age to complete this topic Insurance [facility] MEDICARE Member Subscriber Plan / Payer (Ef fective 2023-Present) Name:SANCHO IGNACIO Relation to Subscriber:Self Name:Sancho Ignacio Payer ID:[id number] Group ID:[id number] Type:Not on file Address: [place] [address] [address] [place] [phone] Care Teams Float Tender Relationship Specialty Start Date End Date Danis Laurent MD 230 [place] [address] PCP - General Internal Medicine 07/03/24
--- OUTSIDE RECORDS SUMMARY | 2024-12-01 13:49 | XMS_ITS | Encounter Summary ---
Author Organization [employer] Address [address] [facility] [address] 7t [place] [address] Care Team Providers Care Nurse Practitioner Per Diem Name Role Phone Danis Morales MD Primary Care Provide r Encounter Details Date Type Department Care Team (Late st Contact Info) Description 12/25/[address] [facility] CHC MED & PEDS [address] [place], [place] [phone] Pat Goldberg LPN Social History Tobacco Use [...] documented as of this encounter Care Teams Nurse Practitioner Per Diem Relationship Specialty Start Date End Date Danis Morales MD [address] [place] [address] PCP - General Internal Medicine 11/24/13 documented as of this encounter
--- OUTSIDE RECORDS SUMMARY | 2024-12-01 13:49 | XMS_ITS | Encounter Summary ---
Author Organization [employer] Address [address] [place] [address] 7t [place] [address] Care Team Providers Care Outreach Manager Name Role Phone Danis Morales MD Primary Care Provide r Reason for Visit * Reason Onset Date Comments Results 11/24/2022 Encounter Details Date Type Department Care Team ([facility] st Contact Info) Description 11/24/2022 Telephone [facility] MEDICINE 230 [place] [address] Danis Morales MD 230 [place], [place] [phone] Results Social History Tobacco Use Types Packs/Day [...] 3:13 PM EDT T/C to pt. Through [employer] id - [id number] for below message, pt. Verbally agreed and understood. Pt. Also schedule for follow up apt. On 01/04/2023 with PCP. * Telephone Encounter - Lydia Dumont - 11/24/2022 1:19 PM EDT Tc from pt requesting results of labs done 11/23. Please contact pt at [phone] (Thai) documented in this encounter Plan of Treatment Not on file documented as of this encounter Visit Diagnoses Not on filedocumented in this encounter Additional Health Concerns Assessment Noted Time PHQ-9 Depression Total Score: 4 06/07/19 23 1:43 PM EDT documented as of this encounter Care Teams Outreach Manager Relationship Specialty Start Date End Date Danis Morales MD 230 [place] [address] PCP - General Internal Medicine 11/24/13 documented as of this encounter
== END 2024-12-01 11:15 | disposition home or self-care (01) ==
LOC: HO.US 11:14
PROVIDERS: PCP Internal Medicine; Visit Provider Urology
DX: N40.1 Benign prostatic hyperplasia with lower urinary tract symptoms (principal); R39.198 Other difficulties with micturition
CPT/HCPCS: 76857

== ENCOUNTER → 2024-12-01 11:16 | Outpatient (BNV) | payer OTHER, SELFPAY | PROVIDERS: PCP Internal Medicine; Visit Provider Radiology Vascular & Interventional Radiology | DX: N40.1 Benign prostatic hyperplasia with lower urinary tract symptoms (principal) | CPT/HCPCS: 76857 ==

== ENCOUNTER 2024-12-12 12:46 | Outpatient (REF) | payer OTHER, SELFPAY ==
--- OUTSIDE RECORDS SUMMARY | 2024-12-11 16:00 | XMS_ITS | Encounter Summary ---
Author Organization [employer] Address [address] [facility] [address] 7t [place] [address] Care Team Providers Care Business Account Manager Name Role Phone Danis Morales MD Primary Care Provide r Encounter Details Date Type Department Care Team (Late st Contact Info) Description 12/11/2024 4:00 PM EDT Office Visit [facility] WALK-IN CENTER 230 [place] [address] Jacklyn Arthur MD 505 [place] [address] Chronic left shoulder pain (Primary Dx) Social History Tobacco Use Types Packs/Day Years [...] AM EDT documented as of this encounter Last Filed Vital Signs Vital Sign Reading Time Taken Comments Blood Pressure 130/86 12/11/2024 3:44 PM EDT Pulse 93 12/11/2024 3:44 PM EDT Temperature 36.7 C (98 F) 12/11/2024 3:44 PM EDT Respiratory Rate 19 12/11/2024 3:44 PM EDT Oxygen Saturation 96% 12/11/2024 3:44 PM EDT Inhaled Oxygen Concentration - - Weight 90 kg (198 lb 8 oz) 12/11/2024 3:44 PM ED T Height 175.3 cm (5' 9 ) 12/11/2024 3:44 PM EDT Body Mass Index 29.31 12/11/2024 3:44 PM EDT documented in this encounter Progress Notes * Jacklyn Arthur MD - 12/11/2024 4:00 PM EDT SUBJECTIVE Sancho Zuniga is a 64 y.o. male patient of Danis Laurent MD who presents for left shoulder pain. GREGORY Kingsley is here with more than one month of left shoulder pain. Pain is constant, worse when he triesto move his shoulder including getting dressed. Has not had any trauma. Reports having [place] that shoulder [place] [facility] and he also reports having multiple injections in that shoulder that did not help at all. Says he tried Tylenol and tramadol for the pain, and only tramadol helped him. He does not have a tramadol prescription. Review of Systems Constitutional: Negative for chills and fever. Musculoskeletal: Positive for arthralgias. Negative for neck stiffness. Skin: Negative for rash. Neurological: Positive for weakness. OBJECTIVE Vitals: 12/11/24 1544 BP: 130/86 BP Location: Right arm Patient Position: Sitting BP Cuff Size: Adult Pulse: 93 Resp: 19 Temp: 98 ??F (36.7 ??C) TempSrc: Oral SpO2: 96% Weight: 198 lb 8 oz (90 kg) Height: 5' 9 (1.753 m) Physical Exam Constitutional: Appearance: He is not toxic-appearing. Musculoskeletal: Right shoulder: Normal. Left shoulder: Deformity and tenderness (laterally) present. No bony tenderness or crepitus. Decreased range of motion (internal and external rotation). Normal strength. Normal pulse. Left upper arm: No swelling or edema. Left elbow: Normal. Cervical back: Muscular tenderness (left trapezius mm) present. Lymphadenopathy: Cervical: No cervical adenopathy. Neurological: Mental Status: He is alert. Motor: No weakness. Assessment/Plan Assessment/Plan Diagnoses and all orders for this visit: Chronic left shoulder pain: May be related to rotator cuff injury, bursitis vs OA. Recommended naproxen for pain but he declined. Recommended referral to Ortho but he declined. Will check an xray to evaluate for OA. Offered him a sling but he declined. - XR Shoulder 2+ Views Left; Future Other orders - naproxen sodium (Aleve) 220 MG tablet; Take 1 tablet (220 mg) by mouth if needed in the morning and at bedtime (shoulder pain). Future Appointments Date Time Provider Department Center 12/11/2024 4:00 PM [facility] 1 WALK-IN [facility] 01/13/2025 1:00 PM Danis Solomon MD MEDICINE [facility] documented in this encounter Plan of Treatment Upcoming Encounters Date Type Department Care Team (Late st Contact Info) Description 01/13/2025 1:00 PM EST Office Visit [facility] MEDICINE [address] [place] [address] Danis Morales MD [address] [place] [address] [place] [address] documented as of this encounter Procedures Procedure Name Priority Date/Time Associated Diagnosis Comments XR SHOULDER 2+ VIEWS LEFT STAT 12/12/2024 1:05 PM EDT Chronic left shoulder pain documented in this encounter Results * XR Shoulder 2+ Views Left (12/12/2024 1:05 PM EDT) Anatomical Region Laterality Modality Upper Extremities, Shoulder Left Radi ographic Imaging 12/12/2024 1:05 PM EDT Narrative 12/12/2024 1:17 PM EDT [address] [address] XRay Report Signed Patient: Sancho Loya MR#: [id number] : 1960 Acct:[id number] Age/Sex: 64 / M ADM Date: 12/12/24 Loc: HO.HHCX Attending Dr: Jacklyn Arthur MD Ordering Physician: Jacklyn Arthur MD Date of Service: 12/12/24 Procedure(s): XR shoulder LT min 2V Accession Number(s): [id number] cc: Danis Laurent MD; Jacklyn Arthur MD Reason for Exam: One month of left sided chest pain worse with internal rotation EXAMINATION: XR SHOULDER, LEFT CLINICAL INFORMATION: Left shoulder pain. One month of left sided chest pain worse with internal rotation COMPARISON: None. TECHNIQUE: AP external rotation, Grashey, scapular Y, and axillary views of the left shoulder. FINDINGS: Normal bone mineralization. No fracture, dislocation, or suspicious bone lesion. Normal alignment. There is a surgical anchor in the greater tuberosity. The glenohumeral joint demonstrates mild degenerative changes. The AC joint demonstrates mild degenerative spurring. There is a type II acromion. No undersurface spurring. The subacromial space is preserved. Remainder of the soft tissue and bony structures appear normal. XR/XR shoulder LT min 2V IMPRESSION: 1. No acute bony or soft tissue abnormality. 2. Mild degenerative arthrosis of the glenohumeral joint and AC joint. 3. Prior rotator cuff repair. Electronically signed by: Doug Durán MD 12/12/2024 01:14 PM EDT RP Dictated By: Doug Durán MD Signed By: <Electronically signed by Doug Durán MD in OV> 12/12/24 1314 DD/ 1305 TD/TT: 12/12/24 1307 Recreation Facility Manager: Procedure Note Donotuseinterpreter, Image - 12/12/[address] [address] XRay Report Signed Patient: Sancho Loya LMR#: [id number] : 9Acct:[id number] Age/Sex: 64 / MADM Date: 12/12/24 Loc: HO.HHCX Attending Dr: Jacklyn Arthur MD Ordering Physician: Jacklyn Arthur MD Date of Service: 12/12/24 Procedure(s): XR shoulder LT min 2V Accession Number(s): [id number] cc: Danis Laurent MD; Jacklyn Arthur MD Reason for Exam: One month of left sided chest pain worse with internalrotation EXAMINATION: XR SHOULDER, LEFT CLINICAL INFORMATION: Left shoulder pain. One month of left sided chest pain worse with internal rotation COMPARISON: None. TECHNIQUE: AP external rotation, Grashey, scapular Y, and axillary views of the left shoulder. FINDINGS: Normal bone mineralization. No fracture, dislocation, or suspicious bone lesion. Normal alignment. There is a surgical anchor in the greater tuberosity. The glenohumeral joint demonstrates mild degenerative changes. The AC joint demonstrates mild degenerative spurring. There is a type II acromion. No undersurface spurring. The subacromial space is preserved. Remainder of the soft tissue and bony structures appear normal. XR/XR shoulder LT min 2V IMPRESSION: 1. No acute bony or soft tissue abnormality. 2. Mild degenerative arthrosis of the glenohumeral joint and AC joint. 3. Prior rotator cuff repair. Electronically signed by: oDug Durán MD 12/12/2024 01:14 PM EDT RP Dictated By: Doug Durán MD Signed By: <Electronically signed by Doug Durán MD in OV> 12/12/24 1314 DD/ 1305 TD/TT: 12/12/24 1307 Recreation Facility Manager: us Jacklyn Arthur MD IMG XR PROCEDURES Final Resul t documented in this encounter Visit Diagnoses Diagnosis Chronic left shoulder pain- Primary Pain in joint, shoulder region documented in this encounter Additional Health Concerns Assessment Noted Time PHQ-9 Depression Total Score: 3 06/11/19 25 1:54 PM EDT documented as of this encounter Care Teams Business Account Manager Relationship Specialty Start Date End Date Danis Morales MD 230 [place] [address] PCP - General Internal Medicine 11/24/13 documented as of this encounter
--- NOTE | ~2024-12-12 | XR_ITS ---
EXAMINATION: XR SHOULDER, LEFT CLINICAL INFORMATION: Left shoulder pain. One month of left sided chest pain worse with internal rotation COMPARISON: None. TECHNIQUE: AP external rotation, Grashey, scapular Y, and axillary views of the left shoulder. FINDINGS: Normal bone mineralization. No fracture, dislocation, or suspicious bone lesion. Normal alignment. There is a surgical anchor in the greater tuberosity. The glenohumeral joint demonstrates mild degenerative changes. The AC joint demonstrates mild degenerative spurring. There is a type II acromion. No undersurface spurring. The subacromial space is preserved. Remainder of the soft tissue and bony structures appear normal. XR/XR shoulder LT min 2V IMPRESSION: 1. No acute bony or soft tissue abnormality. 2. Mild degenerative arthrosis of the glenohumeral joint and AC joint. 3. Prior rotator cuff repair. Electronically signed by: Doug Durán MD 12/12/2024 01:14 PM EDT
--- OUTSIDE RECORDS SUMMARY | 2024-12-12 15:06 | XMS_ITS | Encounter Summary ---
Author Organization [employer] Address [address] [facility] [address] 7t [place] [address] Care Team Providers Care Consumer Services Consultant Name Role Phone Danis Morales MD Primary Care Provide r Encounter Details Date Type Department Care Team (Late st Contact Info) Description 12/25/2022 Orders Only [facility] CHC MED & PEDS [address] [place], [place] [phone] Pat Goldberg LPN Social History Tobacco Use [...] Description 01/13/2025 1:00 PM EST Office Visit [facility] MEDICINE 230 [place] [address] Danis Morales MD 230 [place] [address] documented as of this encounter Visit Diagnoses Not on filedocumented in this encounter Additional Health Concerns Assessment Noted Time PHQ-9 Depression Total Score: 4 06/07/19 23 1:43 PM EDT documented as of this encounter Care Teams Consumer Services Consultant Relationship Specialty Start Date End Date Danis Morales MD 230 [place] [address] PCP - General Internal Medicine 11/24/13 documented as of this encounter
--- OUTSIDE RECORDS SUMMARY | 2024-12-12 15:06 | XMS_ITS | Encounter Summary ---
Author Organization [employer] Address [address] [place] [address] 7t [place] [address] Care Team Providers Care Pre Algebra Teacher Name Role Phone Danis Morales MD Primary Care Provide r Encounter Details Date Type Department Care Team (Late st Contact Info) Description 09/25/2022 Orders Only [facility] CHC MED & PEDS 505 [place], [place] [phone] Pat Goldberg LPN Social History Tobacco Use [...] Description 01/13/2025 1:00 PM EST Office Visit [facility] MEDICINE 230 [place], [place] [phone] Danis Moralse MD 230 [place], [place] [phone] documented as of this encounter Visit Diagnoses Not on filedocumented in this encounter Additional Health Concerns Assessment Noted Time PHQ-9 Depression Total Score: 4 06/07/19 23 1:43 PM EDT documented as of this encounter Care Teams Pre Algebra Teacher Relationship Specialty Start Date End Date Danis Morales MD [address] [place] [address] PCP - General Internal Medicine 11/24/13 documented as of this encounter
--- OUTSIDE RECORDS SUMMARY | 2024-12-12 15:06 | XMS_ITS | Encounter Summary ---
Author Organization [employer] Address 75 [facility] 7t [place] [address] Care Team Providers Care Freight Associate Name Role Phone Danis Morales MD Primary Care Provide r Encounter Details Date Type Department Care Team (Late st Contact Info) Description 10/10/2024 Results Follow-Up [facility] MEDICINE 230 [place] [address] Pattie Josue MD 230 [place] [address] Electrolyte Panel, BUN (Blood Urea Nitrogen), Creatinine, [...] Description 01/13/2025 1:00 PM EST Office Visit [facility] MEDICINE 230 [place] [address] Danis Morales MD 230 [place] [address] documented as of this encounter Visit Diagnoses Not on filedocumented in this encounter Additional Health Concerns Assessment Noted Time PHQ-9 Depression Total Score: 3 06/11/19 25 1:54 PM EDT documented as of this encounter Care Teams Freight Associate Relationship Specialty Start Date End Date Danis Morales MD 230 [place] [address] PCP - General Internal Medicine 11/24/13 documented as of this encounter
--- OUTSIDE RECORDS SUMMARY | 2024-12-12 15:07 | XMS_ITS | Encounter Summary ---
Author Organization [employer] Address [address] [place] [address] 7t [place] [address] Care Team Providers Care Senior Software Test Engineer Name Role Phone Danis Morales MD Primary Care Provide r Encounter Details Date Type Department Care Team (Late Contact Info) Description 04/10/2022 Orders Only [facility] MEDICINE [address] [place] [phone] Ailin Kumar LPN Social History Tobacco Use [...] Description 01/13/2025 1:00 PM EST Office Visit [facility] MEDICINE [address] [place] [phone] Danis Morales MD [address] [place] [phone] documented as of this encounter Visit Diagnoses Not on filedocumented in this encounter Care Teams Senior Software Test Engineer Relationship Specialty Start Date End Date Danis Morales MD 230 [place] [address] PCP - General Internal Medicine 11/24/13 documented as of this encounter
--- OUTSIDE RECORDS SUMMARY | 2024-12-12 15:07 | XMS_ITS | Encounter Summary ---
Author Organization [employer] Address 75 [facility] 7t [place] [address] Care Team Providers Care Finishing Technician Name Role Phone Danis Morales MD Primary Care Provide r Encounter Details Date Type Department Care Team (Late Contact Info) Description 04/13/2022 Orders Only [facility] CHC MED & PEDS 505 [place], [place] [phone] Pat Goldberg LPN Social History Tobacco Use [...] Description 01/13/2025 1:00 PM EST Office Visit [facility] MEDICINE 230 [place], [place] [phone] Danis Morales MD 230 [place], [place] [phone] documented as of this encounter Visit Diagnoses Not on filedocumented in this encounter Care Teams Finishing Technician Relationship Specialty Start Date End Date Danis Morales MD 230 [place] [address] PCP - General Internal Medicine 11/24/13 documented as of this encounter
--- OUTSIDE RECORDS SUMMARY | 2024-12-12 15:07 | XMS_ITS | Clinical Summary ---
Author Organization 175 [facility] Address 175 [place] [address] Phone Care Team Providers Care Supervisor Mail Carriers Name Role Phone Danis Laurent MD Primary [...] 1:30 PM EDT Consult Orthopedic Surgery - [place] 250 175 [facility] [address] [place] [phone] Kyle Kimball DPM Controlled type 2 diabetes [...] Upcoming Encounters Date Type Department Care Team ([facility] Contact Info) Description 12/16/2024 1:00 PM EDT Office Visit Orthopedic Surgery - [place] 250 175 [facility] 250 [place] [phone] Kyle Kimball, JOLANTA 175 [facility] 250 [place] [address] Health Maintenance Due Date Last Done Comments Colorectal Cancer Screening: Colonoscopy 1960 Diabetes: Annual GFR (Glomerular Filtration Rate) 1960 Diabetes: Annual Foot Exam 1968 Diabetes: Annual Retina Eye Exam 1968 RSV Immunization Adult Patients (1 - Risk 50-74 years 1-dose series) 2008 Depression Screening 02/27/2024 Abdominal Aortic Aneurysm (AAA) [...] patient's age to complete this topic Insurance [facility] MEDICARE Member Subscriber Plan / Payer (Ef fective 2023-Present) Name:SANCHO IGNACIO Relation to Subscriber:Self Name:Sancho Ignacio Payer ID:[id number] Group ID:[id number] Type:Not on file Address: [place] [address] [place] [place] [address] Care Teams Supervisor Mail Carriers Relationship Specialty Start Date End Date Danis Laurent MD 230 [place] [address] PCP - General Internal Medicine 07/03/24
--- OUTSIDE RECORDS SUMMARY | 2024-12-12 15:07 | XMS_ITS | Clinical Summary ---
Author Organization [employer] Address [address] [facility] [address] [place] [address] Care Team Providers Care Desk Sergeant Name Role Phone Danis Morales MD Primary [...] record from that organization. [employer] Short Pen Prospect 31G X 8 MM miscIndication s:Type 2 diabetes mellitus without complication, unspecified whether detention insulin use USE EVERY EVENING 100 each 3 023 Active montelukast (Singulair) 10 MG tablet TAKE 1 TABLET BY MOUTH EVERY EVENING 30 tablet 6 024 Active Continuous Glucose Research Methodologist (FreeStyle Briana 2 [place]) deviceIndicati ons:Type 2 diabetes mellitus without complication, [...] AND BEDTIMETAKE 180 tablet 2 025 Active naproxen sodium (Aleve) 220 MG tablet Take 1 tablet (220 mg) by mouth if needed in the morning and at bedtime (shoulder pain). 60 tablet 025 2025 Active metFORMIN (Glucophage) 1000 MG tablet TAKE [...] medication). CKD stage 3a, GFR 45-59 ml/min ([facility]) 024 Assessment & Plan [...] Plan (08/23/2023 11:56 AM EDT): Evaluated by Administrative Tech Dr Ocampo Stress testing 06/2023 Negative for [...] were wnl. Pt currently following with GI. [facility] care 06/06/2022 Assessment & Plan (06/10/2024 2:20 [...] work up. He was seen by a performance solutions specialist (Dr Patel) last seen 04/13/2015 he repeated his PFTs that were almost normal so he recommended to DC Advair and Spiriva and keep him on Albuterol prn only Of note pt has had PFT'S and a Methacholine challenge at [facility] that was negative. Pt is on Advair HFA 250/50, Singulair and Albuterol He is now under the care of Dr Pa Watson, last seen 03/14/2024 Assessment & Plan (09/27/2023 2:39 PM EDT): Doing well, no recent exacerbation Pt has a Hx of a chronic cough for which he had an extensive pulmonary work up. He was seen by a performance solutions specialist (Dr Patel) last seen 04/13/2015 he repeated his PFTs that were almost normal so he recommended to DC Advair and Spiriva and keep him on Albuterol prn only Of note pt has had PFT'S and a Methacholine challenge at [facility] that was negative. Pt is on Advair HFA 250/50, Singulair and Albuterol He is now under the care of Dr Pa Watson, last seen 09/10/2023 Assessment & Plan (08/23/2023 11:46 AM EDT): Doing well, no recent exacerbation Pt has a Hx of a chronic cough for which he had an extensive pulmonary work up. He was seen by a performance solutions specialist (Dr Patel) last seen 04/13/2015 he repeated his PFTs that were almost normal so he recommended to DC Advair and Spiriva and keep him on Albuterol prn only Of note pt has had PFT'S and a Methacholine challenge at [facility] that was negative. Pt is on Advair HFA 250/50 and Albuterol He is now under the care of Dr Pa Watson, last seen 02/2023 Assessment & Plan (06/06/2022 1:47 PM EDT): Doing well, no recent exacerbation Pt has a Hx of a chronic cough for which he had an extensive pulmonary work up. He was seen by a performance solutions specialist (Dr Patel) last seen 04/13/2015 he repeated his PFTs that were almost normal so he recommended to DC Advair and Spiriva and keep him on Albuterol prn only Of note pt has had PFT'S and a Methacholine challenge at [facility] that was negative. Pt [...] 7 Eye exam last done by Dr Connor(commercial real estate attorney). Microalbumin checked on: 06/20/2023 was: 0.4 Pt [...] a daily basis Plan: As per [facility] Endocrinology Assessment & Plan [...] 7 Eye exam last done by Dr Connor(commercial real estate attorney). Microalbumin checked on: 06/20/2023 was: 0.4 Pt [...] a daily basis Plan: As per [facility] Endocrinology Assessment & Plan (02/07/2024 2:37 PM [...] medications. Eye exam last done by Dr Connor(commercial real estate attorney). Microalbumin checked on: 06/20/2023 was: 0.4 Pt [...] a daily basis Plan: As per [facility] Endocrinology Assessment & Plan (09/27/2023 2:41 PM [...] medications. Eye exam last done by Dr Connor(commercial real estate attorney). Microalbumin checked on: 04/19/2020 was: 1.4 Pt [...] a daily basis Plan: As per [facility] Endocrinology Assessment & Plan [...] Endocrinology Eye exam last done by Dr Connor(commercial real estate attorney). Microalbumin checked on: 04/19/2020 was: 1.4 Pt [...] a daily basis Plan: As per [facility] Endocrinology Assessment & Plan [...] asked to schedule an appointment at [facility] Endocrinology, pt insisted that he had one [place] [facility] but it seems he was confused He was evaluated by our hematology nurse educator and Entry Level Eye exam last done by Dr Connor(commercial real estate attorney). Microalbumin checked on: 04/19/2020 was: 1.4 Pt [...] daily basis Plan: referred back to [facility] Endocrinology Assessment & Plan [...] referred back to Endocrinology Plan: referal to hematology nurse educator and Entry Level as well as Acoustical Material Worker at [facility] check BG regularly Increase Lantus to 42 units subcutaneous qhs f/u 3 months with me Eye exam was last done on: 08/24/16. by Dr. Dr Connor(commercial real estate attorney). Microalbumin checked on: 04/19/2020 was: 1.4 Pt [...] last done on: 08/24/16. by Dr. Dr Connor(commercial real estate attorney). Microalbumin checked on: 04/19/2020 was: 1.4 Pt [...] the care of Thoracic surgery at [facility]. Pt seemed convinced that this is contributing to his chronic cough and wanted to have it excised. Pt is now s/p R VATS/pericardial cyst resection by Dr Melissa Smith at [facility] thoracic on 07/10/2012 Pt was noted to be tachycardic during the post op period and started on Cardizem with good effects. For pain control he is using percocet as needed. Pt was last seen by Dr Smith on: 08/28/2012 Pt was seen again for f/u by jin Bhat at [facility] Thoracic on 11/05/13 who [...] a psychotherapist her name is janes Nieves: [phone] Patient denies any suicidal ideation or thoughts, [...] a psychotherapist her name is janes Nieves: [phone] Patient denies any suicidal ideation or thoughts, Patient has crisis numbers and knows to use them if needed He is seeing head chef Ino Walton , last seen 05/22/2024 On Zolpidem and Zoloft Assessment & Plan (02/07/2024 2:43 PM EST): Patient is no longer under the care of Dr Frnatz Mead, see med list for current psych meds. He is seeing a psychotherapist her name is janes Nieves: [phone] Patient denies any suicidal ideation or thoughts, [...] Encounters Date Type Department Care Team Description 12/11/2024 4:00 PM EDT Office Visit [facility] [address] [place] [address] Jacklyn Arthur MD Chronic left shoulder pain (Primary Dx) 12/11/2024 Travel 11/27/2024 Orders Only GENERIC EXTERNAL DATA DEPARTMENT Provider, Generic External Data 11/17/2024 Refill [facility] [address] [place] [address] Danis Morales MD 11/15/2024 Refill [facility] [address] [place] [address] Danis Morales MD Type 2 diabetes mellitus without complication, with long-term current use of insulin ([facility]) 10/24/2024 Telephone [facility] [address] [place] [address] Danis Morales MD Appointment 10/10/2024 Results Follow-Up [facility] [address] [place] [address] Pattie Josue MD Electrolyte Panel, BUN (Blood Urea Nitrogen), Creatinine, Serum 10/10/2024 Orders Only GENERIC EXTERNAL DATA DEPARTMENT Provider, Generic External Data 09/23/2024 Refill [facility] [address] [place] [address] Danis Morales MD 09/22/2024 Refill [facility] [address] [place] [address] Danis Morales MD 09/18/2024 Refill [facility] [address] [place] [address] Danis Morales MD 09/12/2024 Orders Only GENERIC EXTERNAL DATA DEPARTMENT Provider, Generic External Data from Last 3 Months Immunizations Immunization Administration [...] your housing situation today? I have kayleigh brennen 07/10/[address] you li [...] Mass Index 29.31 12/11/2024 3:44 PM EDT Plan of Treatment Upcoming Encounters Date Type Department Care Team (Late st Contact Info) Description 01/13/2025 1:00 PM EST Office Visit [facility] [address] [place] [address] Danis Morales MD [address] [place], [place] [phone] Health Maintenance Due Date Last Done Comments [...] 06/10/2024 Depression Screening 06/10/2025 06/10/2024, 06/11/19 25 Lipid Panel 09/12/2025 09/12/2024, 07/0 02/2023, 06/19/2022, Additional history exists Tobacco Screening 12/11/2025 12/11/2024 DTaP/Tdap/Td Vaccines (2 - Td or Tdap) [...] 1:05 PM EDT Chronic left shoulder pain US BLADDER Routine 12/02/2024 11:17 AM EDT COMPREHENSIVE METABOLIC PANEL Routine 11/27/2024 2:52 [...] with long-term current use of insulin (CMS/HCC) Mixed hyperlipidemia POCT GLYCATED HEMOGLOBIN, TOTAL Routine 09/09/2024 2:03 PM EDT Type 2 diabetes mellitus with stage 3a chronic kidney disease, with long-term current use of insulin (CMS/HCC) HEPATITIS C AB W/REFL TO HCV RNA, QN, PCR Routine 06/19/2022 8:29 AM EDT Mixed hyperlipidemia HM COLONOSCOPY Routine 12/11/2019 from Last 3 Months or Most Recently Relevant to Health Maintenance Results * XR Shoulder 2+ Views Left (12/12/2024 1:05 PM EDT) Anatomical Region Laterality Modality Upper Extremities, Shoulder Left Radi ographic Imaging 12/12/2024 1:05 PM EDT Narrative 12/12/2024 1:17 [place] [address] XRay Report Signed Patient: Sancho Loya MR#: [id number] : 1960 Acct:[id number] Age/Sex: 64 / M ADM Date: 12/12/24 Loc: HO.HHCX Attending Dr: Jacklyn Arthur MD Ordering Physician: Jacklyn Arthur MD Date of Service: 12/12/24 Procedure(s): XR shoulder LT min 2V Accession Number(s): [id number] cc: Danis Laurent MD; Jacklyn Arthur MD [...] 12/12/24 1314 DD/ 1305 TD/TT: 12/12/24 1307 Soda Fountain Manager: Procedure Note Donotuseinterpreter, Image - 12/12/[address] [address] XRay Report Signed Patient: Sancho Loya LMR#: [id number] : 9Acct:[id number] Age/Sex: 64 / MADM Date: 12/12/24 Loc: HO.HHCX Attending Dr: Jacklyn Arthur MD Ordering Physician: Jacklyn Arthur MD Date of Service: 12/12/24 Procedure(s): XR shoulder LT min 2V Accession Number(s): [id number] cc: Danis Laurent MD; Jacklyn Arthur MD [...] Doug Durán MD 12/12/2024 01:14 PM EDT Dictated By: Doug Durán MD Signed By: <Electronically signed by Doug Durán MD in OV> 12/12/24 1314 DD/ 1305 TD/TT: 12/12/24 1307 Soda Fountain Manager: us Jacklyn Arthur MD IMG XR PROCEDURES Final Resul t * US BLADDER (12/02/2024 11:17 AM EDT) Anatomical Region Laterality Modality Abdomen Ultrasound 12/02/2024 11:1 7 AM EDT Narrative 12/02/2024 11:18 AM EDT [place] [address] Ultrasound Report Signed Patient: Sancho Loya MR#: [id number] : 1960 Acct:[id number] Age/Sex: 64 / M ADM Date: 12/01/24 Loc: .US Attending Dr: Letty Hill MD Ordering Physician: Letty Hill MD Date of Service: 12/01/24 Procedure(s): US bladder Accession Number(s): [id number] cc: Letty Hill MD; Danis Laurent MD Reason for Exam: N40.1 - Benign prostatic hyperplasia with lower urinary tract symptoms CLINICAL HISTORY: N40.1 - Benign prostatic hyperplasia with lower urinary tract symptoms --- Additional Notes or Special Instructions: please measure prostate US Urinary Bladder Comparison: None Findings: The urinary bladder is unremarkable. Prevoid volume: 336 mLPostvoid volume: 34 mL Ureteral jets are visualized bilaterally. The bladder wall is mildly trabeculated. The prostate gland is enlarged at 44 mL. IMPRESSION: Mildly trabeculated bladder with prostate gland enlargement small postvoid residual. This document has been electronically signed by: Elijah Banks MD on 12/02/2024 11:17:32 Dictated By: Elijah Banks MD Signed By: <Electronically signed by Elijah Banks MD in OV> 12/02/241116 DD/ 16 TD/TT: 12/02/241116 Soda Fountain Manager: Procedure Note Donotuseinterpreter, Image - 12/02/2024 [place] [address] Ultrasound Report Signed Patient: Sancho Loya LMR#: [id number] : 9Acct:[id number] Age/Sex: 64 / MADM Date: 12/01/24 Loc: .US Attending Dr: Letty Hill MD Ordering Physician: Letty Hill MD Date of Service: 12/01/24 Procedure(s): US bladder Accession Number(s): [id number] cc: Letty Hill MD; Danis Laurent MD Reason for Exam: N40.1 - Benign prostatic hyperplasia with lower urinarytract symptoms CLINICAL HISTORY: N40.1 - Benign prostatic hyperplasia with lower urinarytract symptoms --- Additional Notes or Special Instructions: please measure prostate US Urinary Bladder Comparison: None Findings: The urinary bladder is unremarkable. Prevoid volume: 336 mLPostvoid volume: 34 mL Ureteral jets are visualized bilaterally. The bladder wall is mildly trabeculated. The prostate gland is enlarged at 44 mL. IMPRESSION: Mildly trabeculated bladder with prostate gland enlargement small postvoid residual. This document has been electronically signed by: Elijah Banks MD on 12/02/2024 11:17:32 Dictated By: Elijah Banks MD Signed By: <Electronically signed by Elijah Banks MD in OV> 12/02/241116 DD/ 16 TD/TT: 12/02/24 1117 Soda Fountain Manager: us [facility] External Provider IMG US PROCEDURES Final Result * (ABNORMAL) CBC auto differential (11/27/2024 2:52 PM EDT) White Blood Count 13.1(H) 4.8 - 10.8 X10*3/uL [facility] Red Blood Count 5.16 4.60 - 5.80 X10*6/uL [facility] Hemoglobin 15.2 14.0 - 18.0 g/dl [facility] Hematocrit 46.2 42.0 - 52.0 % [facility] Mean Corpuscular Volume 89.5 80.0 - 98.0 fL [facility] Mean Corpuscular Hemoglobin 29.5 27.0 - 33.0 pg [facility] Mean Corpuscular HGB Conc 32.9 31.0 - 36.0 g/dl [facility] Red Cell Distribution Width 14.8 11.0 - 16.0 % [facility] Platelet Count 226 160 - 400 X10*3/uL [facility] Mean Platelet Volume 9.1(L) 9.4 - 12.4 fL [facility] Neutrophils Percent Auto 58.9 45 - 73 % [facility] Imm Gran Pct Auto 0.6(H) 0.0 - 0.4 % [facility] Lymphocytes Percent Auto 23.4 20 - 40 % [facility] Monocytes Percent Auto 9.7 2 - 11 % [facility] Eosinophils Percent Auto 6.6(H) 0 - 4 % [facility] Basophils Percent Auto 0.8 0 - 2 % [facility] NRBC Pct Auto 0.0 0.0 - 0.2 /100WBC [facility] Neutrophils Absolute Auto 7.7 2.0 - 8.3 x10*3/uL [facility] Imm Gran Abs Auto 0.08(H) 0.00 - 0.03 X10*3/uL [facility] Lymphocytes Absolute Auto 3.1 1.2 - 4.9 X10*3/uL [facility] Monocytes Absolute Auto 1.3(H) 0.1 - 1.2 X10*3/uL [facility] Eosinophils Absolute Auto 0.9(H) 0.0 - 0.4 X10*3/uL [facility] Basophils Absolute Auto 0.1 0.0 - 0.2 X10*3/uL [facility] NRBC Abs Auto 0.000 0.0 - 0.012 X10*3/uL [facility] 11/27/2024 2:52 PM EDT 11/27/2024 2:52 PM EDT us Generic External Data Provider LAB BLOOD ORDERAB LES Final Result [facility] [address] [place] [address] [phone] * (ABNORMAL) Comprehensive Metabolic Panel (11/27/2024 2:52 PM EDT) Sodium 138 135 - 145 mmol/L [facility] Potassium 4.7 3.3 - 5.1 mmol/L [facility] Comment:Slight Hemolysis.Int erpret result with caution. Chloride 107 96 - 108 mmol/L [facility] Carbon Dioxide 23 22 - 29 mmol/L [facility] Anion Gap 13 12 - 20 [facility] Urea Nitrogen (BUN) 17(H) 9 - 16 mg/dL [facility] Creatinine, Serum 1.15 0.5 - 1.4 mg/dL [facility] Estimated Glomerular Filt Rate >60 [facility] Comment:Chronic Kidney Disea se: Estimated GFR < 60 mL/min/[id number] Kidney Disease: Estimated GFR < 15 mL/min/1.73m2 Glucose 100 60 - 115 mg/dL [facility] Calcium 9.4 8.4 - 10.2 mg/dL [facility] Bilirubin, Total 0.2 0.0 - 1.0 mg/dL [facility] Aspartate Amino Transferase 28 5 - 37 U/L [facility] Comment:Slight Hemolysis.Int erpret result with caution. Alanine Aminotransferase 28 0 - 40 U/L [facility] Total Protein 8.4(H) 6.5 - 8.0 g/dL [facility] Albumin Level 4.4 3.5 - 5.0 g/dL [facility] Alkaline Phosphatase 69 39 - 117 U/L [facility] 11/27/2024 2:52 PM EDT 11/27/2024 2:52 PM EDT us Generic External Data Provider LAB BLOOD ORDERAB LES Final Result Performing Organization Address [facility] de Phone Number [facility] [address] [place] [phone] * Creatinine, Serum (10/10/2024 2:11 PM EDT) Creatinine, Serum 1.18 0.5 - 1.4 mg/dL [facility] Estimated Glomerular Filt Rate >60 [facility] Comment:Chronic Kidney Disea se: Estimated GFR < 60 mL/min/1.66v0Jotebz Kidney Disease: Estimated GFR < 15 mL/min/1.73m2 10/10/2024 2:11 PM EDT 10/10/2024 2:12 PM EDT us Generic External Data Provider LAB BLOOD ORDERAB LES Final Result Performing Organization Address [facility] Co de Phone Number [facility] [address] [place] [phone] * (ABNORMAL) BUN (Blood Urea Nitrogen) (10/10/2024 2:11 PM EDT) Urea Nitrogen (BUN) 21(H) 9 - 16 mg/dL [facility] 10/10/2024 2:11 PM EDT 10/10/2024 2:12 PM EDT us Generic External Data Provider LAB BLOOD ORDERAB LES Final Result Performing Organization Address [facility] de Phone Number [facility] [address] [place] [phone] * Electrolyte Panel (10/10/2024 2:11 PM EDT) Sodium 138 135 - 145 mmol/L [facility] Potassium 4.5 3.3 - 5.1 mmol/L [facility] Chloride 104 96 - 108 mmol/L [facility] Carbon Dioxide 22 22 - 29 mmol/L [facility] Anion Gap 17 12 - 20 [facility] 10/10/2024 2:11 PM EDT 10/10/2024 2:12 PM EDT us Generic External Data Provider LAB BLOOD ORDERAB LES Final Result Performing Organization Address [facility] Phone Number [facility] [address] [place] [phone] * PSA, Total With Reflex to PSA, Free (09/12/2024 11:50 AM EDT) PSA,Total (Free>4and<10) 0.90 0.00 - 4.00 ng/mL [facility] Comment:A Free PSA was not [...] are between 4.0 and 10.0 ng/mL.PSA methodology: Ambrocio Alinity i ChemiluminescentMicroparticle Immunoassay (CMIA) 09/12/2024 11:5 0 AM EDT 09/12/2024 12:58 PM EDT us Generic External Data Provider LAB BLOOD ORDERAB LES Final Result [facility] [address] [place] [phone] * Lipid Panel, Standard (09/12/2024 11:50 AM EDT) Triglycerides 111 <150 mg/dL [facility] Comment:Desirable Triglyceri de: less than 150 mg/dLBorderline High Triglyceride 150-199 mg/dLHigh Triglyceride: 200-499 mg/dLVery High Triglyceride: greater than or equal to 5OO mg/dL Cholesterol 120 <200 mg/dL [facility] Comment:Desirable Cholestero l: less than 200 mg/dLBorderline High Cholesterol: 200-239 mg/dLHigh Cholesterol: greater than 239 mg/dL LDL Cholesterol Calculated 55 <100 mg/dL [facility] Comment:Desirable LDL: less than 100 mg/dLNear Optimal/Above Optimal LDL: 110- 129 mg/dLBorderline High LDL: 130-159 mg/dLHigh LDL: 160-189 mg/dLVery High LDL: greater than or equal to 190 mg/dL HDL Cholesterol 43 >40 mg/dL [facility] Comment:Desirable HDL: great er than 40 mg/dL Note: This HDL assay may give artificially low results in patients with liver disease. Blood Venous blood specimen / Unknown 09/12/2024 11:50 AM EDT 09/12/2024 12:55 PM EDT Danis Solomon MD LAB BLOOD ORDERABLES Final Result [facility] [address] [place] [phone] * (ABNORMAL) POCT HGB A1C (09/09/2024 2:03 PM EDT) Hemoglobin A1C 8.0(A) 4.0 - 5.7 % QC Media Lot # [id number] Lot# Expiration Date [id number] Blood 09/09/2024 2:03 PM EDT Danis Solomon MD POINT OF CARE TEST EN TER/EDIT ORDERABLES Final Result * Hepatitis C Antibody with Reflex to HCV, RNA, Quantitative, Real-Time PCR (06/19/2022 8:29 AM EDT) Hepatitis C Antibody NON-REACT JIMY NON-REACT JIMY [facility] Index 0.10 <1.[address] Comment: HCV antibody was non-reactive. There is no laboratory evidence of HCV infection. In most cases, no further action is required. However, if recent HCV exposure is suspected, a test for HCV RNA (test code 20288) is suggested. For additional information please refer to http://education.[employer]faq/EJO71k9 (This link is being provided for informational/ educational purposes only.) Blood Venous blood specimen / Unknown 06/19/2022 8:29 AM EDT 06/19/2022 8:29 AM EDT Narrative [facility] - 06/19/2022 10:33 PM EDT FASTING:YES FASTING: YES Danis Solomon MD LAB BLOOD ORDERABLES Final Result [facility] [address], [place] [address] [employer] [place] [employer] [address] [place] [phone] * Colonoscopy (12/11/2019) Colonoscopy Normal Normal 12/11/2019 [facility] [place] - 12/11/2019 10:39 AM EDT 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
--- OUTSIDE RECORDS SUMMARY | 2024-12-12 15:07 | XMS_ITS | Encounter Summary ---
Author Organization [employer] Address [address] [place] [address] 7t [place] [address] Care Team Providers Care Staker Surveying Name Role Phone Danis Morales MD Primary Care Provide r Encounter Details Date Type Department Care Team (Late st Contact Info) Description 05/30/2022 Orders Only [facility] PEDS [address] [place], [place] [phone] Pat Goldberg LPN Social History Tobacco Use [...] Description 01/13/2025 1:00 PM EST Office Visit [facility] MEDICINE [address] [place] [address] Danis Morales MD [address] [place] [phone] documented as of this encounter Visit Diagnoses Not on filedocumented in this encounter Care Teams Staker Surveying Relationship Specialty Start Date End Date Danis Morales MD [address] [place] [address] [phone] PCP - General Internal Medicine 11/24/13 documented as of this encounter
--- OUTSIDE RECORDS SUMMARY | 2024-12-12 15:07 | XMS_ITS | Encounter Summary ---
Author Organization [employer] Address [address] [place] [address] 7t [place] [address] Care Team Providers Care In Process Inspector Name Role Phone Danis Morales MD Primary Care Provide r Reason for Visit * Reason Onset Date Comments Letter for School/Work 11/24/2022 Encounter Details Date Type Department Care Team ([facility] Contact Info) Description 11/24/[address] 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 [address] [place] [address] Danis Morales MD [address] [place], [place] [phone] documented as of this encounter Visit Diagnoses Not on filedocumented in this encounter Additional Health Concerns Assessment Noted Time PHQ-9 Depression Total Score: 4 06/07/19 23 1:43 PM EDT documented as of this encounter Care Teams In Process Inspector Relationship Specialty Start Date End Date Danis Morales MD [address] [place], [place] [phone] PCP - General Internal Medicine 11/24/13 documented as of this encounter
--- OUTSIDE RECORDS SUMMARY | 2024-12-12 15:07 | XMS_ITS | Encounter Summary ---
Author Organization [employer] Address [address] [place] [address] 7t [place] [address] Care Team Providers Care Manager Relocation Name Role Phone Danis Morales MD Primary Care Provide r Reason for Visit * Reason Onset Date Comments Results 11/24/2022 Encounter Details Date Type Department Care Team ([facility] st Contact Info) Description 11/24/2022 Telephone [facility] [address] [place] [address] Danis Morales MD [address] [place], [place] [phone] Results Social History Tobacco Use Types Packs/Day [...] 3:13 PM EDT T/C to pt. Through [employer] id - [id number] for below message, pt. Verbally agreed and understood. Pt. Also schedule for follow up apt. On 01/04/2023 with PCP. * Telephone Encounter - Lydia Dumont - 11/24/2022 1:19 PM EDT Tc from pt requesting results of labs done 11/23. Please contact pt at [phone] (Macedonian) documented in this encounter Plan of Treatment Upcoming Encounters Date Type Department Care Team (Late st Contact Info) Description 01/13/2025 1:00 PM EST Office Visit [facility] [address] [place] [phone] Danis Morales MD [address] [place] [phone] documented as of this encounter Visit Diagnoses Not on filedocumented in this encounter Additional Health Concerns Assessment Noted Time PHQ-9 Depression Total Score: 4 06/07/19 23 1:43 PM EDT documented as of this encounter Care Teams Manager Relocation Relationship Specialty Start Date End Date Danis Morales MD [address] [place] [phone] PCP - General Internal Medicine 11/24/13 documented as of this encounter
--- OUTSIDE RECORDS SUMMARY | 2024-12-12 15:07 | XMS_ITS | Encounter Summary ---
Author Organization [employer] Address [address] [place] [address] 7[address] [place] [address] Care Team Providers Care Bowling Or Skating Front Desk Clerk Name Role Phone Danis Morales MD Primary Care Provide r Encounter Details Date Type Department Care Team (Late st Contact Info) Description 02/16/2022 Orders Only [facility] [address] [place] [address] Ailin Kumar LPN Social History Tobacco Use [...] Description 01/13/2025 1:00 PM EST Office Visit [facility] [address] [place] [address] Danis Morales MD [address] [place] [address] documented as of this encounter Visit Diagnoses Not on filedocumented in this encounter Care Teams Bowling Or Skating Front Desk Clerk Relationship Specialty Start Date End Date Danis Morales MD [address] [place] [address] PCP - General Internal Medicine 11/24/13 documented as of this encounter
--- OUTSIDE RECORDS SUMMARY | 2024-12-12 15:07 | XMS_ITS | Encounter Summary ---
Author Organization [employer] Address [address] [place] [address] 7t [place] [address] Care Team Providers Care Membership Secretary Name Role Phone Danis Morales MD Primary Care Provide r Encounter Details Date Type Department Care Team (Late Contact Info) Description 06/28/2022 Abstract [facility] MEDICINE [address] [place] [phone] Danis Morales MD [address] [place] [address] [phone] Social History Tobacco Use Types Packs/Day Years [...] Department Care Team (Late Contact Info) Description 01/13/2025 1:00 PM EST Office Visit [facility] [address] [place] [address] [phone] Danis Morales MD [address] [place] [address] documented as of this encounter Procedures Procedure Name Priority Date/Time Associated Diagnosis Comments COLONOSCOPY Routine 12/11/2019 documented in this encounter Results * Colonoscopy (12/11/2019) Colonoscopy Normal Normal 12/11/2019 Narrative Mandy Jessica - 12/11/2019 10:39 AM EDT Recommended 5 year follow up due to history of tubular adenoma ( see scanned report )[facility] us Historical Provider HEALTH MAINTENANCE Final Result documented in this encounter Visit Diagnoses Not on filedocumented in this encounter Additional Health Concerns Assessment Noted Time PHQ-9 Depression Total Score: 4 06/07/19 23 1:43 PM EDT documented as of this encounter Care Teams Membership Secretary Relationship Specialty Start Date End Date Danis Morales MD [address] [place] [address] PCP - General Internal Medicine 11/24/13 documented as of this encounter
--- OUTSIDE RECORDS SUMMARY | 2024-12-12 15:07 | XMS_ITS | Encounter Summary ---
Author Organization [employer] Address [address] [facility] 7t [place] [address] Care Team Providers Care Cloth Checker Name Role Phone Danis Morales MD Primary Care Provide r Encounter Details Date Type Department Care Team (Latest Contact Info) Description 12/11/2024 Travel Social History Tobacco Use Types Packs/Day Years [...] 1:00 PM EST Office Visit [facility] [address] [place] [address] Danis Morales MD [address] [place] [address] documented as of this encounter Visit Diagnoses Not on filedocumented in this encounter Additional Health Concerns Assessment Noted Time PHQ-9 Depression Total Score: 3 06/11/19 25 1:54 PM EDT documented as of this encounter Care Teams Cloth Checker Relationship Specialty Start Date End Date Danis Morales MD [address] [place] [address] PCP - General Internal Medicine 11/24/13 documented as of this encounter
--- OUTSIDE RECORDS SUMMARY | 2024-12-12 15:07 | XMS_ITS | Encounter Summary ---
Author Organization [facility] Address [address] [place] [address] 7t [place] [address] Care Team Providers Care Bio Medical Technician Name Role Phone Danis Morales MD Primary Care Provide r Encounter Details Date Type Department Care Team (Late Contact Info) Description 09/07/2022 Orders Only [facility] MED[facility] [address] [place] [address] [phone] Ailin Kumar LPN Social History Tobacco Use [...] Description 01/13/2025 1:00 PM EST Office Visit [facility] [address] [place] [address] [phone] Danis Morales MD [address] [place] [address] [phone] documented as of this encounter Visit Diagnoses Not on filedocumented in this encounter Additional Health Concerns Assessment Noted Time PHQ-9 Depression Total Score: 4 06/07/19 23 1:43 PM EDT documented as of this encounter Care Teams Bio Medical Technician Relationship Specialty Start Date End Date Danis Morales MD [address] [place] [address] PCP - General Internal Medicine 11/24/13 documented as of this encounter
--- OUTSIDE RECORDS SUMMARY | 2024-12-12 15:07 | XMS_ITS | Encounter Summary ---
Author Organization [employer] Address [address] [address] [facility] [address] 7[address] [place] [address] Care Team Providers Care Tail Board Worker Name Role Phone Danis Morales MD Primary Care Provide r Encounter Details Date Type Department Care Team (Late st Contact Info) Description 09/01/2024 Refill [facility] [address] [place], [place] [phone] Danis Morales MD [address] [place], [place] [phone] Depressive disorder Social History Tobacco Use Types [...] Description 01/13/2025 1:00 PM EST Office Visit [facility] MEDICINE [address] [place] [address] Danis Morales MD [address] [place] [address] documented as of this encounter Visit Diagnoses Diagnosis Depressive disorder Depressive disorder, not elsewhere classified documented in this encounter Additional Health Concerns Assessment Noted Time PHQ-9 Depression Total Score: 3 06/11/19 25 1:54 PM EDT documented as of this encounter Care Teams Tail Board Worker Relationship Specialty Start Date End Date Danis Morales MD [address] [place] [phone] PCP - General Internal Medicine 11/24/13 documented as of this encounter
== END 2024-12-12 12:47 | disposition home or self-care (01) ==
LOC: HO.HHCX 12:46
PROVIDERS: PCP Internal Medicine; Visit Provider Internal Medicine
DX: M25.512 Pain in left shoulder (principal); G89.29 Other chronic pain
CPT/HCPCS: 73030

== ENCOUNTER → 2024-12-12 12:54 | Outpatient (BNV) | payer OTHER, SELFPAY | PROVIDERS: PCP Internal Medicine; Visit Provider Radiology Diagnostic Radiology | DX: M19.012 Primary osteoarthritis, left shoulder (principal) | CPT/HCPCS: 73030 ==

== ENCOUNTER 2024-12-15 12:39 | Outpatient (AMB) | payer OTHER, SELFPAY ==
--- NOTE | 2024-12-15 13:07 | A.OFFVIS_ITS ---
Intake Visit Reasons: 3m/US/PSA Intake Note: Patient presents today for 3m/US/PSA * 09/12 Total PSA:0.90 * 12/02 Bladder US Urology Medication:None Blood Thinner:Aspirin Antibiotic Allergies:None PVR:11ml Duck Bill Operator Required: Yes Duck Bill Operator Name: [id number]--Rhjve Information Interpreted: non-clinical & clinical Allergies No Known Allergies Allergy (Verified 12/15/24 13:07) Medication List - Last Reconciled 12/15/24 by Letty Hill MD albuterol sulfate 2.5 mg (3 mL) inhalation QID PRN albuterol sulfate 90 mcg/actuation (Ventolin HFA) 2 inhalations inhalation Q4H 30 days aspirin 81 mg PO DAILY atorvastatin 20 mg PO BEDTIME bisacodyl (Dulcolax (bisacodyl)) 10 mg (2 x 5 mg) PO BEDTIME 2 days blood sugar diagnostic (FreeStyle Lite Strips) As directed blood sugar diagnostic (FreeStyle Lite Strips) As directed three times a day empagliflozin (Jardiance) 25 mg PO DAILY famotidine 40 mg PO BEDTIME finasteride (Proscar) 5 mg PO DAILY fluticasone propion-salmeterol 115-21 mcg/actuation (Advair HFA) 2 puffs inhalation Q12H gabapentin 300 mg PO BID insulin glargine 36 units subcut BEDTIME lancets (FreeStyle Lancets) Three times a day levalbuterol HCl 1.25 mg (3 mL) inhalation BID 90 days loratadine 10 mg PO DAILY lorazepam 0.5 mg PO DAILY melatonin 5 mg PO BEDTIME PRN 30 days metformin 1,000 mg PO BID metoclopramide HCl 10 mg PO TID montelukast 10 mg PO DAILY 90 days nebulizers As directed pantoprazole 40 mg PO QAM peg 3350-electrolytes 236-22.74-6.74 -5.86 gram (Golytely) 240 mL PO Q10M 1 day pen needle, diabetic (UltiCare Pen Needle) As directed pioglitazone 30 mg PO DAILY@1200 prednisone 50 mg PO DAILY quetiapine 25 mg PO BEDTIME repaglinide 0.5 mg PO TID sennosides (senna) 17.2 mg (2 x 8.6 mg) PO BEDTIME sertraline (Zoloft) 100 mg PO QAM simethicone 180 mg PO QID PRN sodium chloride 0.9% 2.5 mL inhalation BID 30 days zolpidem (Ambien) 5 mg PO BEDTIME PRN HPI Comments Details: 12/15/2024--Sancho is a 64-year-old male follow-up BPH. He was last evaluated on 09/08/2024. Here for follow up renal ultrasound 12/02/2024-, Screening PSA 11-27-24 was 2.51. The patient states that he discontinue the tamsulosin because he did not feel it was helping. Bladder ultrasound notes bladder wall thickening. I have discussed further evaluation with office cystoscopy. The patient may benefit from GreenLight laser. Will start Proscar 5 mg daily Results: 12/01/24--US Bladder/prostate: The prostate gland is enlarged at 44 mL. Just tell me to do, get the information discuss Mildly trabeculated bladder with prostate gland enlargement small postvoid residual. 09/08/24--MANAGER FIELD BPH. History of Present Illness - The patient is a 64-year-old male presenting with Benign Prostatic Hyperplasia (BPH). - Reports difficulty with urination, requiring effort to initiate and maintain urine flow, especially at night. - Experiences nocturia, waking up one to three times per night to urinate. - Urination is normal during the daytime. - Urinalysis showed no signs of infection but revealed glucosuria. Results - PSA level: 0.98 ng/mL (September 27, 2023) - Urinalysis: No signs of infection, presence of glucose Plan - Order an ultrasound to measure prostate size. - Prescribe medication to relax prostate muscles, facilitating easier urine flow. - Medication to be taken in the evenings after supper. - Follow-up in 3 months to assess medication efficacy, with PSA blood work to be done a few weeks prior. [facility] Medical History Dysphagia Asthma-COPD overlap syndrome HTN (hypertension) Cough Bronchitis Pneumonia Acute bronchospasm Acute bronchitis with asthma with acute exacerbation New abnormality on chest x-ray Depression Diabetes Chronic GERD Anxiety Hyperlipidemia Asthma Surgical History Status post rotator cuff surgery Hx of toe surgery Hx of repair of rotator cuff Hx of hernia repair Hx of colonoscopy Hx of esophagogastroduodenoscopy Family History Father No problems noted. Mother Hx of breast cancer Sister Diabetes Maternal Aunt Heart problem Social History Household Members: Spouse Housing: Apartment Alcohol intake: unknown Patient Tobacco Use Status: Former Tobacco user Years Smoked: 20 yrs ( quit 8 years ago) Second Hand Smoke Exposure: Yes service: No Current occupational status: retired Review of Systems Const All systems reviewed & are unremarkable except as noted in HPI and below Reports no additional complaints Eyes Reports no additional complaints ENT Reports no additional complaints Card Reports no additional complaints Resp Reports no additional complaints GI Reports no additional complaints Reports as per HPI Musc Reports no additional complaints Skin/Breast Reports system reviewed and no additional complaints, except as documented Neuro Reports no additional complaints Psych Reports no additional complaints Endo Reports no additional complaints Neal/Lymph Reports no additional complaints Aller/Immun Reports no additional complaints Results Reviewed Results Reviewed: Date of Service: 12/01/24 US Urinary Bladder Comparison: None Findings: The urinary bladder is unremarkable. Prevoid volume: 336 mLPostvoid volume: 34 mL Ureteral jets are visualized bilaterally. The bladder wall is mildly trabeculated. The prostate gland is enlarged at 44 mL. IMPRESSION: Mildly trabeculated bladder with prostate gland enlargement small postvoid residual. Date of Service: 02/15/24 US RETROPERITONEAL LIMITED (RENAL ONLY) CLINICAL INFORMATION: Acute kidney failure. COMPARISON: CT 10/09/2012 TECHNIQUE: Sonographic evaluation of the kidneys. FINDINGS: RIGHT KIDNEY: 10.8 x 5.1 x 5.3 cm (SAG x AP x TRV). The kidney is normal in size, contour, and echogenicity. Renal cortical thickness is normal. No calculi or focal parenchymal lesions. No hydronephrosis. LEFT KIDNEY: 10.9 x 4.9 x 5.0 cm (SAG x AP x TRV). The kidney is normal in size, contour, and echogenicity. Renal cortical thickness is normal. No calculi or focal parenchymal lesions. No hydronephrosis. US/US renal BI IMPRESSION: Normal renal ultrasound. No hydronephrosis. Assessment & Plan Assessment & Plan (1) BPH loc w urin obs/LUTS: Code(s): N40.1 - Benign prostatic hyperplasia with lower urinary tract symptoms Category: Medical (2) Slowing of urinary stream: Code(s): R39.198 - Other difficulties with micturition Category: Medical (3) Bladder wall thickening: Code(s): N32.89 - Other specified disorders of bladder Category: Medical Plan I have discussed further evaluation with office cystoscopy. The patient may benefit from GreenLight laser. Will start Proscar 5 mg daily Medications: New finasteride (Proscar) 5 mg PO DAILY 90 tabs 1RF Discontinued tamsulosin (Flomax) Discontinued Reason: Doctor's Order 0.4 mg PO BEDTIME 30 caps 4RF Patient Instructions: The patient had an opportunity to ask questions regarding treatment plan. The patient expressed understanding and agreement with the above treatment plan. The patient is aware they should contact our office by phone for worsening of their current condition or the appearance of new symptoms. Compliance is encouraged with any medications and followup testing that is ordered. It is a privilege to be allowed the opportunity to participate in the urologic care of your patient. If you have any questions or concerns regarding treatment for the above conditions please do not hesitate to contact me. The office telephone contact is [phone]. This note is constructed in part using voice recognition software. While every effort has been made to ensure accuracy cdl instructor errors may have been incl uded. Yours sincerely, Letty Hill MD Coding Level of Care Code Est Pt Level 4 (69297) Diagnoses BPH loc w urin obs/LUTS N40.1 Slowing of urinary stream R39.198 Bladder wall thickening N32.89
== END 2024-12-15 13:51 | disposition home or self-care (01) ==
LOC: HO.HUSH 12:39
PROVIDERS: PCP Internal Medicine; Visit Provider Urology
DX: N40.1 Benign prostatic hyperplasia with lower urinary tract symptoms (principal); R39.198 Other difficulties with micturition; N32.89 Other specified disorders of bladder
CPT/HCPCS: 99214

== ENCOUNTER → 2024-12-15 12:39 | Outpatient (BNVA) | payer OTHER, SELFPAY | PROVIDERS: PCP Internal Medicine; Visit Provider Urology | DX: N40.1 Benign prostatic hyperplasia with lower urinary tract symptoms (principal); N13.8 Other obstructive and reflux uropathy; R39.198 Other difficulties with micturition; N32.89 Other specified disorders of bladder | CPT/HCPCS: 51798; 99212 ==

== ENCOUNTER → 2024-12-16 07:53 | Outpatient (BNV) | payer OTHER, SELFPAY | PROVIDERS: PCP Internal Medicine; Visit Provider Urology | DX: N17.9 Acute kidney failure, unspecified (principal); N18.31 Chronic kidney disease, stage 3a | CPT/HCPCS: 81003 ==

== ENCOUNTER 2025-01-19 13:14 | Outpatient (AMB) | payer MEDICARE, SELFPAY ==
--- NOTE | 2025-01-19 12:25 | A.OFFVIS_ITS ---
Intake Visit Reasons: cysto Intake Note: Patient presents today for a cystoscopy Urology Medication:None Blood Thinner:Aspirin Antibiotic Allergies:None Lot #:[id number] EXP:08/05/27 Change Management Specialist Required: Yes Change Management Specialist Name: Bobby Sue Information Interpreted: non-clinical & clinical Allergies No Known Allergies Allergy (Verified 03/02/25 13:33) HPI Comments Details: 01/19/25--here for office cystoscopy History of Present Illness The patient is a 64-year-old individual presenting with symptoms suggestive of benign prostatic hyperplasia. The patient has been experiencing urinary symptoms, which prompted a prostate examination and cystoscopy to evaluate the extent of prostate enlargement. The patient was previously started on finasteride 5 mg daily to manage symptoms and reduce prostate size. During the cystoscopy, it was noted that the prostate is obstructing the urinary opening, necessitating consideration for a laser procedure to alleviate the blockage. 30 minutes spent in review of records pertaining to this visit and including [id number] discussion including risks and benefits of greenlight laser of prostate with the patient and documentation of this visit. Results - Cystoscopy: Prostate obstructing urinary opening Plan 1. Benign Prostatic Hyperplasia - Continue finasteride 5 mg daily to manage symptoms and reduce prostate size. - Discussed schedule greenlight laser procedure to alleviate urinary obstruction caused by prostate enlargement. - Schedule follow-up for catheter removal post-procedure. - Arrange pre-procedure blood work and EKG. 12/15/2024--Sancho is a 64-year-old male follow-up BPH. He was last evaluated on 09/08/2024. Here for follow up renal ultrasound 12/02/2024-, Screening PSA 11-27-24 was 2.51. The patient states that he discontinue the tamsulosin because he did not feel it was helping. Bladder ultrasound notes bladder wall thickening. I have discussed further evaluation with office cystoscopy. The patient may benefit from GreenLight laser. Will start Proscar 5 mg daily Results: 12/01/24--US Bladder/prostate: The prostate gland is enlarged at 44 mL. Just tell me to do, get the information discuss Mildly trabeculated bladder with prostate gland enlargement small postvoid residual. 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 History of Present Illness - The patient is a 64-year-old male presenting with Benign Prostatic Hyperplasia (BPH). - Reports difficulty with urination, requiring effort to initiate and maintain urine flow, especially at night. - Experiences nocturia, waking up one to three times per night to urinate. - Urination is normal during the daytime. - Urinalysis showed no signs of infection but revealed glucosuria. Results - PSA level: 0.98 ng/mL (September 27, 2023) - Urinalysis: No signs of infection, presence of glucose Plan - Order an ultrasound to measure prostate size. - Prescribe medication to relax prostate muscles, facilitating easier urine flow. - Medication to be taken in the evenings after supper. - Follow-up in 3 months to assess medication efficacy, with PSA blood work to be done a few weeks prior. [facility] Medical History Dysphagia Asthma-COPD overlap syndrome HTN (hypertension) Cough Bronchitis Pneumonia Acute bronchospasm Acute bronchitis with asthma with acute exacerbation New abnormality on chest x-ray Depression Diabetes Chronic GERD Anxiety Hyperlipidemia Asthma Surgical History Status post rotator cuff surgery Hx of toe surgery Hx of repair of rotator cuff Hx of hernia repair Hx of colonoscopy Hx of esophagogastroduodenoscopy Family History Father No problems noted. Mother Hx of breast cancer Sister Diabetes Maternal Aunt Heart problem Social History Household Members: Spouse Housing: Apartment Alcohol intake: unknown Patient Tobacco Use Status: Former Tobacco user Years Smoked: 20 yrs ( quit 8 years ago) Second Hand Smoke Exposure: Yes service: No Current occupational status: retired Review of Systems Const All systems reviewed & are unremarkable except as noted in HPI and below Reports no additional complaints Eyes Reports no additional complaints ENT Reports no additional complaints Card Reports no additional complaints Resp Reports no additional complaints GI Reports no additional complaints Reports as per HPI Musc Reports no additional complaints Skin/Breast Reports system reviewed and no additional complaints, except as documented Neuro Reports no additional complaints Psych Reports no additional complaints Endo Reports no additional complaints Neal/Lymph Reports no additional complaints Aller/Immun Reports no additional complaints Office Procedures Cystoscopy Consent Discussed risk and benefit or proposed procedure with the patient. Information consent for procedure given to the patient. Discussed technical aspects, risks, benefits and alternatives in full. Addressed all of the patient's questions and concerns regarding the procedure. The patient demonstrated knowledge and understanding. They wish to proceed with this procedure. Preparation The patient was prepped in the usual manner. A farm supervisor was present and in the room. Genitalia was prepped with betadine solution in a sterile manner. Lidocaine Jelly 2% was placed into the urethra and 16Fr flexible Olympus cystoscope was inserted into the meatus after adequate lubrication. Procedure Time out per protocol performed. The flexible cystoscope is passed transurethrally: The bladder was inspected in its entirety with utilization retroflexion displaying: Tumor(s): no suspicious bladder lesions visualized Trabeculation: Moderate with cellule changes, and diverticuli Mucosal Erthema: Orifices: normal shape and position Urethra: normal Cystoscopy findings: prostatic urethra obstructive bulbous urethra WNL, no suspicious bladder lesions visualized [id number] DISPOSABLE SCOPE URO-G FLEXIBLE SCOPE Procedure code (CPT) selection complete Office Meds lidocaine HCl 2 % mucosal jelly in applicator Performing Provider: Letty Hill MD Performing Location: [facility] Administered by: Shawn Rosenberg LPN on 01/19/25 13:57 Dose Route Admin Location Dispensed Lot Number Expiration Date ND Sample Sewer 10 mL intra-urethral 20 mL nitrofurantoin monohydrate/macrocrystals 100 mg capsule Performing Provider: Letty Hill MD Performing Location: [facility] Administered by: Shawn Rosenberg LPN on 01/19/25 13:57 Dose Route Admin Location Dispensed Lot Number Expiration Date NDC Sample Sewer 100 mg PO 1 cap phenazopyridine 200 mg tablet Performing Provider: Letty Hill MD Performing Location: [facility] Administered by: Shawn Rosenberg LPN on 01/19/25 13:57 Dose Route Admin Location Dispensed Lot Number Expiration Date NDC Sample Sewer 200 mg PO 1 tab Results AMB Urinalysis, Automated UA Leukoctes 0 Mariah/uL Last Edit by Francisca Reilly on 01/19/25 16:45 UA Nitrite Negative Last Edit by Francisca Reilly on 01/19/25 16:45 UA Urobilinogen 0.2 mg/dL Last Edit by Francisca Reilly on 01/19/25 16:45 UA Protein 0 mg/dL Last Edit by Crystal Reilly on 01/19/25 16:45 UA pH 5.5 Last Edit by Crystal Reilly on 01/19/25 16:45 UA Blood 0 René/uL Last Edit by Crystal Reilly on 01/19/25 16:45 UA Specific Sayre 1.010 Last Edit by Crystal Reilly on 01/19/25 16:45 UA Ketone Negative Last Edit by Crystal Reilly on 01/19/25 16:45 UA Bilirubin 0 mg/dL Last Edit by Crystal Reilly on 01/19/25 16:45 UA Glucose 1000 mg/dL Last Edit by Crystal Reilly on 01/19/25 16:45 Results Reviewed Results Reviewed: Laboratory Last Values Urine pH (Auto) 5.5 01/19/25 15:59 Specific Sayre (Auto) 1.010 01/19/25 15:59 Urine Protein (Auto) 0 mg/dL 01/19/25 15:59 Glucose (UA)(Auto) 1000 mg/dL 01/19/25 15:59 Urine Ketones (Auto) Negative 01/19/25 15:59 Urine Blood (Auto) 0 René/uL 01/19/25 15:59 Urine Nitrite (Auto) Negative 01/19/25 15:59 Urine Bilirubin (Auto) 0 mg/dL 01/19/25 15:59 Urine Urobilinogen (Auto) 0.2 mg/dL 01/19/25 15:59 Leukocyte Esterase (Auto) 0 Mariah/uL 01/19/25 15:59 Date of Service: 12/01/24 US Urinary Bladder Comparison: None Findings: The urinary bladder is unremarkable. Prevoid volume: 336 mLPostvoid volume: 34 mL Ureteral jets are visualized bilaterally. The bladder wall is mildly trabeculated. The prostate gland is enlarged at 44 mL. IMPRESSION: Mildly trabeculated bladder with prostate gland enlargement small postvoid residual. Date of Service: 02/15/24 US RETROPERITONEAL LIMITED (RENAL ONLY) CLINICAL INFORMATION: Acute kidney failure. COMPARISON: CT 10/09/2012 TECHNIQUE: Sonographic evaluation of the kidneys. FINDINGS: RIGHT KIDNEY: 10.8 x 5.1 x 5.3 cm (SAG x AP x TRV). The kidney is normal in size, contour, and echogenicity. Renal cortical thickness is normal. No calculi or focal parenchymal lesions. No hydronephrosis. LEFT KIDNEY: 10.9 x 4.9 x 5.0 cm (SAG x AP x TRV). The kidney is normal in size, contour, and echogenicity. Renal cortical thickness is normal. No calculi or focal parenchymal lesions. No hydronephrosis. US/US renal BI IMPRESSION: Normal renal ultrasound. No hydronephrosis. Assessment & Plan Assessment & Plan (1) BPH loc w urin obs/LUTS: Code(s): N40.1 - Benign prostatic hyperplasia with lower urinary tract symptoms Category: Medical (2) Slowing of urinary stream: Code(s): R39.198 - Other difficulties with micturition Category: Medical (3) Bladder wall thickening: Code(s): N32.89 - Other specified disorders of bladder Category: Medical Plan Plan 1. Benign Prostatic Hyperplasia - Continue finasteride 5 mg daily to manage symptoms and reduce prostate size. - Discussed schedule greenlight laser procedure to alleviate urinary obstruction caused by prostate enlargement. - Schedule follow-up for catheter removal post-procedure. - Arrange pre-procedure blood work and EKG. Orders: Orders AMB Cystoscopy 01/19/25 N40.1 - Benign prostatic hyperplasia with lower urinary tract symptoms, N32.89 - Other specified disorders of bladder, R39.198 - Other difficulties with micturition AMB Urinalysis Automated 01/19/25 Z13.9 - Encounter for screening, unspecified Medications: Refilled finasteride (Proscar) 5 mg PO DAILY 90 tabs 1RF Coding Level of Care Code Est Pt Level 4 (13689) Diagnoses BPH loc w urin obs/LUTS N40.1 Slowing of urinary stream R39.198 Bladder wall thickening N32.89 CPT Codes Cystoscopy - CPT: [id number] ([id number])
--- OUTSIDE RECORDS SUMMARY | 2025-01-19 17:55 | XMS_ITS | Clinical Summary ---
Author Organization [employer] Address [address] [facility] [facility] [address] [place] [address] Care Team Providers Care Job Tracer Name Role Phone Danis Morales MD Primary [...] record from that organization. [employer] Short Pen [place] 31G X 8 MM miscIndication s:Type 2 diabetes mellitus without complication, unspecified whether watcher automat long goods insulin use USE EVERY EVENING 100 each 3 023 Active montelukast (Singulair) 10 MG tablet TAKE 1 TABLET BY MOUTH EVERY EVENING 30 tablet 6 024 Active Continuous Glucose Fur Clipper (FreeStyle Briana 2 [place]) deviceIndicati ons:Type 2 diabetes mellitus without complication, with long-term current use of insulin ([facility]) Scan sensor every 8 hours 1 each 3 024 Active Continuous Glucose Sensor (FreeStyle Briana 2 Sensor) miscIndication s:Type 2 diabetes mellitus without complication, with long-term current use of insulin ([facility]) Apply 1 sensor every 14 days 2 [...] for severe pain. 12 tablet 024 Active glucose blood (FREESTYLE LITE) test stripIndicatio ns:Hyperglycem ia USE DIRECTED TO TEST BLOOD SUGAR TWICE DAILY 100 strip 3 024 Active insulin glargine (Lantus SoloStar) 100 UNIT/ML penIndications :Type 2 diabetes mellitus without complication, with long-term current use of insulin ([facility]) INJECT 42 UNITS SUBCUTANEOUSLY AT BEDTIME 15 [...] complication, with long-term current use of insulin ([facility]) TAKE 1 TABLET BY MOUTH THREE TIMES DAILY 90 tablet 6 025 Active metFORMIN (Glucophage) 1000 MG tablet TAKE 1 TABLET BY MOUTH TWICE DAILY AT NOON AND BEDTIMETAKE 180 tablet 2 025 Active Aspirin Low Dose 81 MG EC tablet TAKE 1 TABLET BY MOUTH EVERY MORNING 90 tablet 3 025 Active pioglitazone (Actos) 30 MG tablet TAKE 1 TABLET BY MOUTH EVERYDAY AT NOON 90 tablet 3 025 Active FT All Day Pain Relief 220 MG tablet TAKE 1 TABLET BY MOUTH TWICE DAILY IN THE MORNING AND AT BEDTIME NEEDED FOR SHOULDER PAIN 60 tablet 3:54 PM EST 025 Active naproxen sodium (Aleve) 220 MG tablet Take 1 tablet (220 mg) by mouth if needed in the morning and at bedtime (shoulder pain). 60 tablet 025 2024 Discontinued Active Problems Problem Noted [...] straining on urination 06/10/2024 Assessment & Plan (01/13/2025 12:47 PM EST): Pt with previous c/o difficulty voiding , nocturia, hesitancy and tenesmus Last PSA 09/27/2023: normal Last seen by Urology 12/15/2024 Assessment & Plan (06/10/2024 2:24 PM EDT): [...] medication). CKD stage 3a, GFR 45-59 ml/min ([facility]) 024 Assessment & Plan (01/13/2025 12:45 PM EST): Under the care of Nephrology, last seen 10/15/2024 Assessment & Plan (09/09/2024 1:53 PM EDT): [...] Plan (08/23/2023 11:56 AM EDT): Evaluated by Wire Worker Dr Ocampo Stress testing 06/2023 Negative for [...] CA Oropharyngeal dysphagia 10/10/2022 Assessment & Plan (01/13/2025 12:46 PM EST): evaluated extensively by GI pt has gastroparesis, GI recommended Neurology evaluation Under the care of GI., last seen 11/27/2024 Assessment & Plan (02/07/2024 2:39 PM EST): [...] were wnl. Pt currently following with GI. [facility] care 06/06/2022 Assessment & Plan (01/13/2025 12:50 PM EST): PSA 09/27/2023 Normal. Colonoscopy: 12/11/2019 pathology showed fragments of TA. He was seen by GI 11/27/2024 who scheduled him for a repeat Assessment & Plan (06/10/2024 2:20 PM EDT): [...] derm clinic Hyperlipidemia 06/23/2016 Assessment & Plan (01/13/2025 12:48 PM EST): Patient is here for a f/u Patient with elevated lipids. Most recent lipid profile from: Lab Results Component Value Date TRIG 111 09/12/2024 TRIG 112 08/27/2023 CHOL 120 09/12/2024 CHOL 111 08/27/2023 LDLCHOLCAL 55 09/12/2024 LDLCHOLCAL 51 08/27/2023 HDL 43 09/12/2024 HDL 38 (L) 08/27/2023 Currently on a regimen of: Atorvastatin 20 mg po qhs Plan: Continue Atorvastatin 20 mg po q pm advised to try to adhere to a low cholesterol diet, counseled and educated about diet and exercise, Patient encouraged to come up with a personal goal for weight loss. Assessment & Plan (09/09/2024 2:04 PM EDT): [...] work up. He was seen by a chemical operations specialist (Dr Patel) last seen 04/13/2015 he repeated his PFTs that were almost normal so he recommended to DC Advair and Spiriva and keep him on Albuterol prn only Of note pt has had PFT'S and a Methacholine challenge at [facility] that was negative. Pt is on Advair HFA 250/50, Singulair and Albuterol He is now under the care of Dr Pa Watson, last seen 03/14/2024 Assessment & Plan (09/27/2023 2:39 PM EDT): Doing well, no recent exacerbation Pt has a Hx of a chronic cough for which he had an extensive pulmonary work up. He was seen by a chemical operations specialist (Dr Patel) last seen 04/13/2015 he repeated his PFTs that were almost normal so he recommended to DC Advair and Spiriva and keep him on Albuterol prn only Of note pt has had PFT'S and a Methacholine challenge at [facility] that was negative. Pt is on Advair HFA 250/50, Singulair and Albuterol He is now under the care of Dr Pa Watson, last seen 09/10/2023 Assessment & Plan (08/23/2023 11:46 AM EDT): Doing well, no recent exacerbation Pt has a Hx of a chronic cough for which he had an extensive pulmonary work up. He was seen by a chemical operations specialist (Dr Patel) last seen 04/13/2015 he repeated his PFTs that were almost normal so he recommended to DC Advair and Spiriva and keep him on Albuterol prn only Of note pt has had PFT'S and a Methacholine challenge at [facility] that was negative. Pt is on Advair HFA 250/50 and Albuterol He is now under the care of Dr Pa Watson, last seen 02/2023 Assessment & Plan (06/06/2022 1:47 PM EDT): Doing well, no recent exacerbation Pt has a Hx of a chronic cough for which he had an extensive pulmonary work up. He was seen by a chemical operations specialist (Dr Patel) last seen 04/13/2015 he repeated his PFTs that were almost normal so he recommended to DC Advair and Spiriva and keep him on Albuterol prn only Of note pt has had PFT'S and a Methacholine challenge at [facility] that was negative. Pt is on Advair HFA 250/50 and Albuterol He is now under the care of Dr Pa Watson, last seen 01/2022 Type 2 diabetes mellitus wit h stage 3a chronic kidney disease 03/11/2015 Assessment & Plan (01/13/2025 12:57 PM EST): Patient is here for a f/u regarding his DM. DM uncontrolled He is under the care of Endocrinology , las note 07/2024, but patient tells me he was seen in October, records requested He is on a regimen of: Repaglinide 0.5 mg TID, Metformin 1000 mg po BID, Actos 30 mg po daily , Lantus 24 units sc q pm and Jardiance 25 mg po daily. (off Glipizide) He is ineligible for GLP1s due to Gastroparesis Hgb A1c on 01/13/2025 : 8.4 from 8 Eye exam last done by Dr Connor(demolition worker). Microalbumin checked on: 06/20/2023 was: 0.4 Pt [...] a daily basis Plan: As per [facility], pt tells me has appointment in January Assessment & Plan (09/09/2024 2:09 PM EDT): [...] 7 Eye exam last done by Dr Connor(demolition worker). Microalbumin checked on: 06/20/2023 was: 0.4 Pt is not on an JOSEPHINE inhibitor/ARB due to previous concerns of cough induced by JOSEPHINE and borderline low blood pressure. Foot check risk of zero Pt reports compliance with Asa 81 mg po daily Pt advised to: adhere to diabetic diet check your blood sugars regularly check your feet on a daily basis Plan: As per [facility] Endocrinology Assessment & Plan (06/10/2024 2:11 PM [...] 7 Eye exam last done by Dr Connor(demolition worker). Microalbumin checked on: 06/20/2023 was: 0.4 Pt is not on an JOSEPHINE inhibitor/ARB due to previous concerns of cough induced by JOSEPHINE and borderline low blood pressure. Foot check risk of zero Pt reports compliance with Asa 81 mg po daily Pt advised to: adhere to diabetic diet check your blood sugars regularly check your feet on a daily basis Plan: As per [facility] Endocrinology Assessment & Plan (02/07/2024 2:37 PM [...] medications. Eye exam last done by Dr Connor(demolition worker). Microalbumin checked on: 06/20/2023 was: 0.4 Pt is not on an JOSEPHINE inhibitor/ARB due to previous concerns of cough induced by JOSEPHINE and borderline low blood pressure. Foot check risk of zero Pt reports compliance with Asa 81 mg po daily Pt advised to: adhere to diabetic diet check your blood sugars regularly check your feet on a daily basis Plan: As per [facility] Endocrinology Assessment & Plan (09/27/2023 2:41 PM [...] medications. Eye exam last done by Dr Connor(demolition worker). Microalbumin checked on: 04/19/2020 was: 1.4 Pt is not on an JOSEPHINE inhibitor/ARB due to previous concerns of cough induced by JOSEPHINE and borderline low blood pressure. Foot check risk of zero Pt reports compliance with Asa 81 mg po daily Pt advised to: adhere to diabetic diet check your blood sugars regularly check your feet on a daily basis Plan: As per [facility] Endocrinology Assessment & Plan (08/23/2023 11:45 AM [...] Endocrinology Eye exam last done by Dr Connor(demolition worker). Microalbumin checked on: 04/19/2020 was: 1.4 Pt is not on an JOSEPHINE inhibitor/ARB due to previous concerns of cough induced by JOSEPHINE and borderline low blood pressure. Foot check risk of zero Pt reports compliance with Asa 81 mg po daily Pt advised to: adhere to diabetic diet check your blood sugars regularly check your feet on a daily basis Plan: As per [facility] Endocrinology Assessment & Plan (01/04/2023 2:30 PM [...] was asked to schedule an appointment at [facility] Endocrinology, pt insisted that he had one at [facility] but it seems he was confused He was evaluated by our perinatal educator and Water Quality Control Engineer Eye exam last done by Dr Connor(demolition worker). Microalbumin checked on: 04/19/2020 was: 1.4 Pt [...] a daily basis Plan: referred back to [facility] Endocrinology Assessment & Plan (10/10/2022 1:36 PM [...] referred back to Endocrinology Plan: referal to perinatal educator and Water Quality Control Engineer as well as Office Coordinator at [facility] check BG regularly Increase Lantus to 42 units subcutaneous qhs f/u 3 months with me Eye exam was last done on: 08/24/16. by Dr. Dr Connor(demolition worker). Microalbumin checked on: 04/19/2020 was: 1.4 Pt [...] last done on: 08/24/16. by Dr. Dr Connor(demolition worker). Microalbumin checked on: 04/19/2020 was: 1.4 Pt [...] basis Impingement syndrome of shoulder region 01/09/20 Assessment & Plan (01/13/2025 1:01 PM EST): Used to be under the care of Dr. Gonzales. Last seen 08/02/2023 X-ray left shoulder showed: 1. No acute bony or soft tissue abnormality. 2. Mild degenerative arthrosis of the glenohumeral joint and AC joint. 3. Prior rotator cuff repair. Pt had been seen by him previously for right shoulder pain Back then MRI of the right shoulder done on 03/16/2016 He completed physical therapy with no good results. Pt had been taking Tramadol but reports he gets a rash from it so he stopped taking it. Pt tells me he took some left over Gabapentin he had with good results Plan: Pt would like to go back to see Dr Gonzales for his persistent left shoulder pain tjat ois not improving Continue Gabapentin 300mg po TID Referred back to Ortho Assessment & Plan (08/23/2023 11:54 AM EDT): [...] under the care of Thoracic surgery at [facility]. Pt seemed convinced that this is contributing to his chronic cough and wanted to have it excised. Pt is now s/p R VATS/pericardial cyst resection by Dr Melissa Smith at [facility] thoracic on 07/10/2012 Pt was noted to be tachycardic during the post op period and started on Cardizem with good effects. For pain control he is using percocet as needed. Pt was last seen by Dr Smith on: 08/28/2012 Pt was seen again for f/u by jin Bhat at [facility] Thoracic on 11/05/13 who recommended NO further [...] a psychotherapist her name is janes Nieves: [phone] Patient denies any suicidal ideation or thoughts, [...] a psychotherapist her name is janes Nieves: [phone] Patient denies any suicidal ideation or thoughts, Patient has crisis numbers and knows to use them if needed He is seeing encyclopedia research worker Ino Walton , last seen 05/22/2024 On Zolpidem and Zoloft Assessment & Plan (02/07/2024 2:43 PM EST): Patient is no longer under the care of Dr Frantz Mead, see med list for current psych meds. He is seeing a psychotherapist her name is janes Nieves: [phone] Patient denies any suicidal ideation or thoughts, [...] Encounters Date Type Department Care Team Description 01/13/2025 1:00 PM EST Office Visit [facility] [address] [place] [address] Danis Morales MD Type 2 diabetes mellitus with stage 3a chronic kidney disease, with long-term current use of insulin ([facility]) (Primary Dx); Mixed hyperlipidemia; Oropharyngeal dysphagia; CKD stage 3a, GFR 45-59 ml/min ([facility]) (HCC); Benign prostatic hyperplasia (BPH) with straining on urination; Impingement syndrome of left shoulder; Encounter for immunization; Preventative health care 01/13/2025 Travel 01/13/2025 Refill [facility] [address] [place] [phone] Jacklyn Arthur MD 01/12/2025 Telephone [facility] [address] [place] [phone] Shayy Dumont MA chart prep 01/06/2025 Patient Outreach [facility] [address] [place] [phone] Danis Morales MD Pre-visit Planning (Pre-visit planning - unable to leave a message, NOT IN SERVICE ) 12/14/2024 Refill [facility] [address] [place] [phone] Danis Morales MD 12/11/2024 4:00 PM EDT Office Visit [facility] [address] [place] [address] Jacklyn Arthur MD Chronic left shoulder pain (Primary Dx) 12/11/2024 Travel 11/27/2024 Orders Only GENERIC EXTERNAL DATA DEPARTMENT Provider, Generic External Data 11/17/2024 Refill [facility] [address] [place] [address] Danis Morales MD 11/15/2024 Refill [facility] [address] [place] [address] Danis Morales MD Type 2 diabetes mellitus without complication, with long-term current use of insulin ([facility]) 10/24/2024 Telephone [facility] [address] [place] [address] Danis Morales MD Appointment from Last 3 Months Immunizations Immunization Administration Dates Next Due INFLUENZA VACCINE QUADRIVALE NT RECOMBINANT PRESERVATIVE FREE RIV4 11/17/2019 Influenza Injectable Quadriv alant Preservative Free IIV4 MDCK 11/16/2020 Influenza injectable quadriv alent IIV4 with preservative 11/13/2017,11/17/2016,11/13/2014 Influenza injectable quadriv alent preservative free 12/05/2022,12/23/2021,03/23/2016 Influenza, High Dose Seasona l, Preservative Free 01/13/2025,02/07/2024,11/08/2018 Influenza, IIV3, injectable 12/31/2013,0 10/26/2010,12/22/2009,02/12,10/30/2008,11/06/2006,03/13/2006 Influenza, Split [...] Sign Reading Time Taken Comments Blood Pressure 118/70 01/13/2025 12:48 PM EST Pulse 88 01/13/2025 12:48 PM EST Temperature 36.3 C (97.4 F) 01/13/2025 12:48 PM EST Respiratory Rate 18 01/13/2025 12:48 PM EST Oxygen Saturation 96% 12/11/2024 3:44 PM EDT Inhaled Oxygen Concentration - - Weight 93 kg (205 lb) 01/13/2025 12:48 PM EST Height 175.3 cm (5' 9 ) 01/13/2025 12:48 PM EST Body Mass Index 30.27 01/13/2025 12:48 PM EST Plan of Treatment Health Maintenance Due Date Last Done Comments CT Colonography 1958 FIT DNA/Cologuard 1958 FIT 1958 FOBT 1960 Sigmoidoscopy 1960 Diabetes: Foot Exam 1968 Eye Exam 1968 RSV Patients and Patients Aged 60 years or older (1 - Risk 50-74 years 1-dose series) 2008 COVID-19 Vaccine ( season) 2024 02/23/2021, 05/21/2020, 04/23/2020 Colonoscopy 12/10/2024 12/11/2019 Colorectal Cancer Screening 12/10/2024 Diabetes: Hemoglobin A1C 04/15/2025 025, 09/09/2024, 06/10/2024, Additional history exists SDOH Screening 05/27/2025 05/27/2024 [...] 01/17/2009, Additional history exists Influenza Vaccine Completed 01/13/2025, , 12/05/2022, Additional history exists HIB Vaccines Aged Out [...] on patient's age to complete this topic Goals Goal Patient Goal Type Associated Problems Recent Progress Patient-Stated? Author Help patients manage their type 2 diabetes Care Plan Help patients manage their type 2 diabetes Shayy Nichols MA Patient has chronic kidney disease Care Plan Patient has chronic kidney disease Shayy Nichols MA Patient has chronic kidney disease Care Plan Patient has chronic kidney disease Shayy Nichols MA Procedures Procedure Name Priority Date/Time Associated Diagnosis Comments POCT GLYCATED HEMOGLOBIN, TOTAL Routine 01/13/2025 12:51 PM EST Type 2 diabetes mellitus with stage 3a chronic kidney disease, with long-term current use of insulin ([facility]) POCT GLUCOSE Routine 01/13/2025 12:50 PM EST Type 2 diabetes mellitus with stage 3a chronic kidney disease, with long-term current use of insulin ([facility]) XR SHOULDER 2+ VIEWS LEFT STAT 12/12/2024 1:05 PM EDT Chronic left shoulder pain US BLADDER Routine 12/02/2024 11:17 AM EDT COMPREHENSIVE METABOLIC PANEL Routine 11/27/2024 2:52 PM EDT CBC WITH AUTO DIFFERENTIAL Routine 11/27/2024 2:52 PM EDT LIPID PANEL, STANDARD Routine 09/12/2024 11:50 AM EDT Type 2 diabetes mellitus with stage 3a chronic kidney disease, with long-term current use of insulin ([facility]) Mixed hyperlipidemia HEPATITIS C AB W/REFL TO HCV RNA, QN, PCR Routine 06/19/2022 8:29 AM EDT Mixed hyperlipidemia HM COLONOSCOPY Routine 12/11/2019 from Last 3 Months or Most Recently Relevant to Health Maintenance Results * (ABNORMAL) POCT Hgb A1c (01/13/2025 12:51 PM EST) Hemoglobin A1C 8.4(A) 4.0 - 5.7 % QC Media Lot # [id number] Lot# Expiration Date ,027 Blood 01/13/2025 12:5 1 PM EST Danis Solomon MD POINT OF CARE TEST EN TER/EDIT ORDERABLES Final Result * (ABNORMAL) POCT Glucose (01/13/2025 12:50 PM EST) Glucose Blood, POC 233(A) 60 - 200 mg/dL QC Media Lot # [id number] Lot# Expiration Date , Blood Capillary blood specimen / Unknown 01/13/2025 12:50 PM EST Danis Solomon MD POINT OF CARE TEST EN TER/EDIT ORDERABLES Final Result * XR Shoulder 2+ Views Left (12/12/2024 1:05 PM EDT) Anatomical Region Laterality Modality Upper Extremities, Shoulder Left Radi ographic Imaging 12/12/2024 1:05 PM EDT Narrative 12/12/2024 1:17 [place] [address] XRay Report Signed Patient: Sancho Loya MR#: [id number] : 1960 Acct:[id number] Age/Sex: 64 / M ADM Date: 12/12/24 Loc: HO.HHCX Attending Dr: Jacklyn Arthur MD Ordering Physician: Jacklyn Arthur MD Date of Service: 12/12/24 Procedure(s): XR shoulder LT min 2V Accession Number(s): [id number] cc: Danis Laurent MD; Jacklyn Arthur MD [...] 12/12/24 1314 DD/ 1305 TD/TT: 12/12/24 1307 Digital Asset Coordinator: Procedure Note Donotuseinterpreter, Image - 12/12/[address] [address] XRay Report Signed Patient: Sancho Loya LMR#: [id number] : 9Acct:[id number] Age/Sex: 64 / MADM Date: 12/12/24 Loc: HO.HHCX Attending Dr: Jacklyn Arthur MD Ordering Physician: Jacklyn Arthur MD Date of Service: 12/12/24 Procedure(s): XR shoulder LT min 2V Accession Number(s): [id number] cc: Danis Laurent MD; Jacklyn Arthur MD [...] 12/12/24 1314 DD/ 1305 TD/TT: 12/12/24 1307 Digital Asset Coordinator: us Jacklyn Arthur MD IMG XR PROCEDURES Final Resul t * US BLADDER (12/02/2024 11:17 AM EDT) Anatomical Region Laterality Modality Abdomen Ultrasound 12/02/2024 11:1 7 AM EDT Narrative 12/02/2024 11:18 AM EDT [address] [address] Ultrasound Report Signed Patient: Sancho Loya MR#: [id number] : 1960 Acct:[id number] Age/Sex: 64 / M ADM Date: 12/01/24 Loc: HO.US Attending Dr: Letty Hill MD Ordering Physician: Letty Hill MD Date of Service: 12/01/24 Procedure(s): US bladder Accession Number(s): [id number] cc: Letty Hill MD; Danis Laurent MD [...] MD Signed By: <Electronically signed by Elijah aBnks MD in OV> 12/02/241116 DD/ 16 TD/TT: 12/02/241116 Digital Asset Coordinator: Procedure Note Donotuseinterpreter, Image - 12/02/2024 [place] [address] Ultrasound Report Signed Patient: Sancho Loya LMR#: [id number] : 9Acct:[id number] Age/Sex: 64 / MADM Date: 12/01/24 Loc: . Attending Dr: Letty Hill MD Ordering Physician: Letty Hill MD Date of Service: 12/01/24 Procedure(s): US bladder Accession Number(s): [id number] cc: Letty Hill MD; Danis Laurent MD [...] Banks MD on 12/02/2024 11:17:32 Dictated By: Eiljah Banks MD Signed By: <Electronically signed by Elijah Banks MD in OV> 12/02/241116 DD/ 16 TD/TT: 12/02/241116 Digital Asset Coordinator: us [facility] External Provider IMG US PROCEDURES Final Result * (ABNORMAL) CBC auto differential (11/27/2024 2:52 PM EDT) White Blood Count 13.1(H) 4.8 - 10.8 X10*3/uL [facility] Red Blood Count 5.16 4.60 - 5.80 X10*6/uL [facility] Hemoglobin 15.2 14.0 - 18.0 g/dl [facility] Hematocrit 46.2 42.0 - 52.0 % [facility] Mean Corpuscular Volume 89.5 80.0 - 98.0 fL [facility] Mean Corpuscular Hemoglobin 29.5 27.0 - 33.0 pg [facility] Mean Corpuscular HGB Conc 32.9 31.0 - 36.0 g/dl [facility] Red Cell Distribution Width 14.8 11.0 - 16.0 % [facility] Platelet Count 226 160 - 400 X10*3/uL [facility] Mean Platelet Volume 9.1(L) 9.4 - 12.4 fL [facility] Neutrophils Percent Auto 58.9 45 - 73 % [facility] Imm Gran Pct Auto 0.6(H) 0.0 - 0.4 % [facility] Lymphocytes Percent Auto 23.4 20 - 40 % [facility] Monocytes Percent Auto 9.7 2 - 11 % [facility] Eosinophils Percent Auto 6.6(H) 0 - 4 % [facility] Basophils Percent Auto 0.8 0 - 2 % [facility] NRBC Pct Auto 0.0 0.0 - 0.2 /100WBC [facility] Neutrophils Absolute Auto 7.7 2.0 - 8.3 x10*3/uL [facility] Imm Gran Abs Auto 0.08(H) 0.00 - 0.03 X10*3/uL [facility] Lymphocytes Absolute Auto 3.1 1.2 - 4.9 X10*3/uL [facility] Monocytes Absolute Auto 1.3(H) 0.1 - 1.2 X10*3/uL [facility] Eosinophils Absolute Auto 0.9(H) 0.0 - 0.4 X10*3/uL [facility] Basophils Absolute Auto 0.1 0.0 - 0.2 X10*3/uL [facility] NRBC Abs Auto 0.000 0.0 - 0.012 X10*3/uL [facility] 11/27/2024 2:52 PM EDT 11/27/2024 2:52 PM EDT us Generic External Data Provider LAB BLOOD ORDERAB LES Final Result [facility] [address] [place] [phone] * (ABNORMAL) Comprehensive Metabolic Panel (11/27/2024 2:52 PM EDT) Sodium 138 135 - 145 mmol/L [facility] Potassium 4.7 3.3 - 5.1 mmol/L [facility] Comment:Slight Hemolysis.Int erpret result with caution. Chloride 107 96 - 108 mmol/L [facility] Carbon Dioxide 23 22 - 29 mmol/L [facility] Anion Gap 13 12 - 20 [facility] Urea Nitrogen (BUN) 17(H) 9 - 16 mg/dL [facility] Creatinine, Serum 1.15 0.5 - 1.4 mg/dL [facility] Estimated Glomerular Filt Rate >60 [facility] Comment:Chronic Kidney Disea se: Estimated GFR < 60 mL/min/1.16j6Cmsfmo Kidney Disease: Estimated GFR < 15 mL/min/1.73m2 Glucose 100 60 - 115 mg/dL [facility] Calcium 9.4 8.4 - 10.2 mg/dL [facility] Bilirubin, Total 0.2 0.0 - 1.0 mg/dL [facility] Aspartate Amino Transferase 28 5 - 37 U/L [facility] Comment:Slight Hemolysis.Int erpret result with caution. Alanine Aminotransferase 28 0 - 40 U/L [facility] Total Protein 8.4(H) 6.5 - 8.0 g/dL [facility] Albumin Level 4.4 3.5 - 5.0 g/dL [facility] Alkaline Phosphatase 69 39 - 117 U/L [facility] 11/27/2024 2:52 PM EDT 11/27/2024 2:52 PM EDT us Generic External Data Provider LAB BLOOD ORDERAB LES Final Result [facility] [address] [place] [phone] * Lipid Panel, Standard (09/12/2024 11:50 AM EDT) Triglycerides 111 <150 mg/dL [facility] Comment:Desirable Triglyceri de: less than 150 mg/dLBorderline High Triglyceride 150-199 mg/dLHigh Triglyceride: 200-499 mg/dLVery High Triglyceride: greater than or equal to 5OO mg/dL Cholesterol 120 <200 mg/dL [facility] Comment:Desirable Cholestero l: less than 200 mg/dLBorderline High Cholesterol: 200-239 mg/dLHigh Cholesterol: greater than 239 mg/dL LDL Cholesterol Calculated 55 <100 mg/dL [facility] Comment:Desirable LDL: less than 100 mg/dLNear Optimal/Above Optimal LDL: 110- 129 mg/dLBorderline High LDL: 130-159 mg/dLHigh LDL: 160-189 mg/dLVery High LDL: greater than or equal to 190 mg/dL HDL Cholesterol 43 >40 mg/dL [facility] Comment:Desirable HDL: great er than 40 mg/dL Note: This HDL assay may give artificially low results in patients with liver disease. Blood Venous blood specimen / Unknown 09/12/2024 11:50 AM EDT 09/12/2024 12:55 PM EDT Danis Solomon MD LAB BLOOD ORDERABLES Final Result Performing Organization Address City/[facility]/ZIP Co de Phone Number [facility] [address] [place] [address] [phone] * Hepatitis C Antibody with Reflex to HCV, RNA, Quantitative, Real-Time PCR (06/19/2022 8:29 AM EDT) Hepatitis C Antibody NON-REACT JIMY NON-REACT JIMY [facility] Index 0.10 <1.00 [facility] Comment: HCV antibody was non-reactive. There is no laboratory evidence of HCV infection. In most cases, no further action is required. However, if recent HCV exposure is suspected, a test for HCV RNA (test code 52352) is suggested. For additional information please refer to http://education.Panasas/faq/VRG11n2 (This link is being provided for informational/ educational purposes only.) Blood Venous blood specimen / Unknown 06/19/2022 8:29 AM EDT 06/19/2022 8:29 AM EDT Narrative [facility] - 06/19/2022 10:33 PM EDT FASTING:YES FASTING: YES Danis Solomon MD LAB BLOOD ORDERABLES Final Result Performing Organization Address City/[facility]/ZIP Co de Phone Number [facility] [address], [place] [address] [facility] [address] [place] [address] * Colonoscopy (12/11/2019) Colonoscopy Normal Normal 12/11/2019 Jessica Montana - 12/11/2019 10:39 AM EDT Recommended 5 year follow up due to history of tubular adenoma ( see scanned report )[facility] Historical Provider HEALTH MAINTENANCE Final Result from Last 3 Months or Most Recently Relevant to Health Maintenance Additional Health Concerns Active Problems Noted Date Diagnosed Date Help patients manage their type 2 diabetes 01/12 Patient has chronic kidney disease 01/12/2025 Patient has chronic kidney disease 01/12/2025 Insurance MEDICARE Member Subscriber Plan / Payer (Ef fective 2024-Present) Name:Sancho Zuniga Tanya Member ID:[id number] Relation to Subscriber:Self Name:Sancho Zuniga Tanya Subscriber ID:[id number] Payer ID:[id number] Group ID:Not on file Type:Medicare [facility] [address] [address] [facility] Care Teams Job Tracer Relationship Specialty Start Date End Date Danis Morales MD [address] [place] [address] PCP - General Internal Medicine 11/24/13
--- OUTSIDE RECORDS SUMMARY | 2025-01-19 17:55 | XMS_ITS | Encounter Summary ---
Author Organization [employer] Address 75 [facility] 7t [place] [address] Care Team Providers Care Sustainable Landscape Architect Name Role Phone Danis Morales MD Primary Care Provide r Encounter Details Date Type Department Care Team (Late st Contact Info) Description 05/30/2022 Orders Only [facility] MED & PEDS [address] [place] [address] Pat Goldberg LPN Social History Tobacco Use [...] on filedocumented in this encounter Care Teams Sustainable Landscape Architect Relationship Specialty Start Date End Date Danis Morales MD [address] [place] [address] PCP - General Internal Medicine 11/24/13 documented as of this encounter
--- OUTSIDE RECORDS SUMMARY | 2025-01-19 17:55 | XMS_ITS | Encounter Summary ---
Author Organization [employer] Address 75 [facility] 7t [place] [address] Care Team Providers Care Manager Fleet Name Role Phone Danis Morales MD Primary Care Provide r Encounter Details Date Type Department Care Team (Late st Contact Info) Description 09/25/2022 Orders Only [facility] CHC MED & PEDS [address] [place], [place] [phone] Pat Goldberg LPN Social History Tobacco Use [...] as of this encounter Care Teams Manager Fleet Relationship Specialty Start Date End Date Danis Morales MD [address] [place] [address] PCP - General Internal Medicine 11/24/13 documented as of this encounter
--- OUTSIDE RECORDS SUMMARY | 2025-01-19 17:55 | XMS_ITS | Encounter Summary ---
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
--- OUTSIDE RECORDS SUMMARY | 2025-01-19 17:55 | XMS_ITS | Encounter Summary ---
Author Organization [employer] Address [address] [place] [address] 7t [place] [address] Care Team Providers Care Correspondence Clerk Name Role Phone Danis Morales MD Primary Care Provide r Reason for Visit * Reason Onset Date Comments Results 11/24/2022 Encounter Details Date Type Department Care Team ([facility] st Contact Info) Description 11/24/2022 Telephone [facility] MEDICINE 230 [place] [address] Danis Morales MD [address] [place], [place] [phone] Results Social History Tobacco Use Types Packs/Day [...] 3:13 PM EDT T/C to pt. Through [employer] id - [id number] for below message, pt. Verbally agreed and understood. Pt. Also schedule for follow up apt. On 01/04/2023 with PCP. * Telephone Encounter - Lydia Dumont - 11/24/2022 1:19 PM EDT Tc from pt requesting results of labs done 11/23. Please contact pt at [phone] (Citizen Of [place]) documented in this encounter Plan of Treatment Not on file documented as of this encounter Visit Diagnoses Not on filedocumented in this encounter Additional Health Concerns Assessment Noted Time PHQ-9 Depression Total Score: 4 06/07/19 23 1:43 PM EDT documented as of this encounter Care Teams Correspondence Clerk Relationship Specialty Start Date End Date Danis Morales MD [address] [place] [address] PCP - General Internal Medicine 11/24/13 documented as of this encounter
--- OUTSIDE RECORDS SUMMARY | 2025-01-19 17:55 | XMS_ITS | Encounter Summary ---
Author Organization [employer] Address 75 [facility] 7t [place] [address] Care Team Providers Care Heating And Blending Supervisor Name Role Phone Danis Morales MD Primary Care Provide r Encounter Details Date Type Department Care Team ([facility] st Contact Info) Description 06/28/2022 Abstract [facility] MEDICINE [address] [place] [address] Danis Morales MD [address] [place] [address] Social History Tobacco Use Types Packs/Day Years [...] documented as of this encounter Care Teams Heating And Blending Supervisor Relationship Specialty Start Date End Date Danis Morales MD [address] [place] [address] PCP - General Internal Medicine 11/24/13 documented as of this encounter
--- OUTSIDE RECORDS SUMMARY | 2025-01-19 17:55 | XMS_ITS | Clinical Summary ---
Author Organization [facility] Address [address] [place] [address] Phone Care Team Providers Care Customer Solutions Representative Name Role Phone Danis Laurent MD Primary Care Provi everardo Allergies Active Allergy Reactions Criticality Noted Date Comments Iodinated Contrast Media Hives 09/15/2024 Other Reaction(s): throat felt tight pt came into [facility] 5 days post injection-states that day after injection had a tight throat and hives on his back(did not eat any new foods or start any new meds) Medications ammonium lactate (AmLactin) 12 % lotion Apply topically if needed for dry skin. 400 g 2 5 12/17/19 26 Active ciclopirox (PENLAC) 8 % solution Apply topically at bedtime. Apply over nail and surrounding skin. Apply daily over previous coat. After seven (7) days, may remove with alcohol and continue cycle. 6.6 mL 5 03/16/19 26 Active Encounters Date Type Department Care Team Description 12/16/2024 1:00 PM EDT Office Visit Orthopedic Surgery [facility] [address] [facility] [address] [place] [phone] Kyle Kimball DPM Controlled type 2 diabetes [...] Care Team (Late st Contact Info) Description 06/16/2025 1:00 PM EDT Office Visit Orthopedic Surgery - [place] [address] [facility] [address] [place] [phone] Kyle Kimball, DPM 175 [facility] [address] [place] [address] Health Maintenance Due Date Last Done Comments Colorectal Cancer Screening: Colonoscopy 1958 Diabetes: Annual Foot Exam 1968 Diabetes: [...] Blood Sugar Control Test (HGBA1C) 03/12/2025 09/09/2024 Diabetes: Annual GFR (Glomerular Filtration Rate) 11/27/2025 11/27/2024 DTaP,Tdap,and Td Vaccines (3 - Td or [...] patient's age to complete this topic Insurance [employer] MEDICARE Member Subscriber Plan / Payer (Ef fective 2023-Present) Name:IGNACIO SANCHO Relation to Subscriber:Self Name:Sancho Ignacio Payer ID:[id number] Group ID:[id number] Type:Not on file Address: [place] [address] [address] [address] Care Teams Customer Solutions Representative Relationship Specialty Start Date End Date Danis Laurent MD [address] [place] [address] PCP - General Internal Medicine 07/03/24
--- OUTSIDE RECORDS SUMMARY | 2025-01-19 17:55 | XMS_ITS | Encounter Summary ---
Author Organization [employer] Address 75 [facility] 7t [place] [address] Care Team Providers Care Major Gifts Director Name Role Phone Danis Morales MD Primary Care Provide r Encounter Details Date Type Department Care Team (Late st Contact Info) Description 04/13/2022 Orders Only [facility] CHC MED & PEDS [address] [place], [place] [phone] Pat Goldberg LPN Social History Tobacco Use [...] on filedocumented in this encounter Care Teams Major Gifts Director Relationship Specialty Start Date End Date Danis Morales MD [address] [place] [address] PCP - General Internal Medicine 11/24/13 documented as of this encounter
--- OUTSIDE RECORDS SUMMARY | 2025-01-19 17:55 | XMS_ITS | Encounter Summary ---
Author Organization [employer] Address [address] [facility] 7t [place] [address] Care Team Providers Care Manager Music Name Role Phone Danis Morales MD Primary Care Provide r Encounter Details Date Type Department Care Team (Late st Contact Info) Description 04/10/2022 Orders Only [facility] MEDICINE 230 [place], [place] [phone] Ailin Kumar LPN Social History Tobacco Use [...] on filedocumented in this encounter Care Teams Manager Music Relationship Specialty Start Date End Date Danis Morales MD 230 [place] [address] PCP - General Internal Medicine 11/24/13 documented as of this encounter
--- OUTSIDE RECORDS SUMMARY | 2025-01-19 17:55 | XMS_ITS | Encounter Summary ---
Author Organization [employer] Address 75 [facility] 7t [place] [address] Care Team Providers Care Medical Imaging Technologist Name Role Phone Danis Morales MD Primary Care Provide r Encounter Details Date Type Department Care Team (Late st Contact Info) Description 02/16/2022 Orders Only [facility] 230 [place] [address] Ailin Kumar LPN Social History Tobacco Use [...] on filedocumented in this encounter Care Teams Medical Imaging Technologist Relationship Specialty Start Date End Date Danis Morales MD [address] [place] [address] PCP - General Internal Medicine 11/24/13 documented as of this encounter
--- OUTSIDE RECORDS SUMMARY | 2025-01-19 17:55 | XMS_ITS | Encounter Summary ---
Author Organization [employer] Address [address] [facility] [address] 7t [place] [address] Care Team Providers Care Medical Collections Specialist Name Role Phone Danis Morales MD Primary Care Provide r Encounter Details Date Type Department Care Team (Late st Contact Info) Description 12/25/2022 Orders Only [facility] CHC MED & PEDS [address] [place], [place] [phone] Pat Goldberg LPN Social History Tobacco Use [...] as of this encounter Care Teams Medical Collections Specialist Relationship Specialty Start Date End Date Danis Morales MD [address] [place] [address] PCP - General Internal Medicine 11/24/13 documented as of this encounter
--- OUTSIDE RECORDS SUMMARY | 2025-01-19 17:55 | XMS_ITS | Encounter Summary ---
Author Organization [employer] Address [address] [facility] [address] 7t [place] [address] Care Team Providers Care Bottle Packing Machine Cleaner Name Role Phone Danis Morales MD Primary Care Provide r Reason for Visit * Reason Comments Med Refill Encounter Details Date Type Department Care Team ([facility] Contact Info) Description 01/13/2025 Refill [facility] 230 [place] [address] Jacklyn Arthur MD [address] [place] [address] Social History Tobacco Use Types Packs/Day Years [...] on file documented as of this encounter Goals Goal Patient Goal Type Associated Problems Recent Progress Patient-Stated? Author Help patients manage their type 2 diabetes Care Plan Help patients manage their type 2 diabetes Shayy Nichols MA Patient has chronic kidney disease Care Plan Patient has chronic kidney disease Shayy Nichols MA Patient has chronic kidney disease Care Plan Patient has chronic kidney disease Shayy Nichols MA documented as of this encounter Visit Diagnoses Not on filedocumented in this encounter Additional Health Concerns Active Problems Noted Date Diagnosed Date Help patients manage their type 2 diabetes 01/12 Patient has chronic kidney disease 01/12/2025 Patient has chronic kidney disease 01/12/2025 Assessment Noted Time PHQ-9 Depression Total Score: 3 06/11/19 25 1:54 PM EDT documented as of this encounter Care Teams Bottle Packing Machine Cleaner Relationship Specialty Start Date End Date Danis Morales MD 230 [place] [address] PCP - General Internal Medicine 11/24/13 documented as of this encounter
--- OUTSIDE RECORDS SUMMARY | 2025-01-19 17:55 | XMS_ITS | Encounter Summary ---
Author Organization [employer] Address [address] [facility] [address] 7t [place] [address] Care Team Providers Care Hotel Assistant General Manager Name Role Phone Danis Morales MD Primary Care Provide r Encounter Details Date Type Department Care Team (Late st Contact Info) Description 09/01/2024 Refill [facility] CH[facility] MED & PEDS [address] [place], [place] [phone] Danis Morales MD 230 [place], [place] [phone] Depressive disorder Social History Tobacco Use Types [...] documented as of this encounter Care Teams Hotel Assistant General Manager Relationship Specialty Start Date End Date Danis Morales MD [address] [place] [address] PCP - General Internal Medicine 11/24/13 documented as of this encounter
--- OUTSIDE RECORDS SUMMARY | 2025-01-19 17:55 | XMS_ITS | Encounter Summary ---
Author Organization [employer] Address [address] [place] [address] 7t [place] [address] Care Team Providers Care Veneer Stock Layer Name Role Phone Danis Morales MD Primary Care Provide r Encounter Details Date Type Department Care Team (Late st Contact Info) Description 09/07/2022 Orders Only [facility] MEDICINE 230 [place], [place] [phone] Ailin Kumar LPN Social History Tobacco Use [...] documented as of this encounter Care Teams Veneer Stock Layer Relationship Specialty Start Date End Date Danis Morales MD [address] [place], [place] [phone] PCP - General Internal Medicine 11/24/13 documented as of this encounter
== END 2025-01-19 14:44 | disposition home or self-care (01) ==
LOC: HO.HUSH 13:15
PROVIDERS: PCP Internal Medicine; Visit Provider Urology
DX: N40.1 Benign prostatic hyperplasia with lower urinary tract symptoms (principal); R39.198 Other difficulties with micturition; N32.89 Other specified disorders of bladder
CPT/HCPCS: 52000; 99214

== ENCOUNTER → 2025-01-19 13:14 | Outpatient (BNVA) | payer MEDICARE, SELFPAY | PROVIDERS: PCP Internal Medicine; Visit Provider Urology | DX: N40.1 Benign prostatic hyperplasia with lower urinary tract symptoms (principal); N32.89 Other specified disorders of bladder; R39.12 Poor urinary stream | CPT/HCPCS: 52000; 81003; 99212 ==

== ENCOUNTER 2025-02-09 13:28 | Outpatient (REF) | payer OTHER, SELFPAY ==
[2025-02-09 14:59] LABS: Hematocrit 47.9 % (42.0-52.0); Hemoglobin 15.3 g/dl (14.0-18.0); Mean Corpuscular HGB Conc 31.9 g/dl (31.0-36.0); Mean Corpuscular Hemoglobin 29.0 pg (27.0-33.0); Mean Corpuscular Volume 90.7 fL (80.0-98.0); NRBC Abs Auto 0.000 X10*3/uL (0.0-0.012); NRBC Pct Auto 0.0 /100WBC (0.0-0.2); Platelet Count 225 X10*3/uL (160-400); Red Blood Count 5.28 X10*6/uL (4.60-5.80); White Blood Count 10.7 X10*3/uL (4.8-10.8)
[2025-02-09 15:35] LABS: Anion Gap 14 (12-20); Blood Urea Nitrogen 23 mg/dL (9-16); Calcium 9.3 mg/dL (8.4-10.2); Carbon Dioxide 19 mmol/L (22-29); Chloride 106 mmol/L (96-108); Estimated Glomerular Filt Rate 55; Potassium 4.3 mmol/L (3.3-5.1); Sodium 135 mmol/L (135-145)
--- OUTSIDE RECORDS SUMMARY | 2025-02-09 19:38 | XMS_ITS | Encounter Summary ---
Author Organization [employer] Address [address] [facility] [address] 7t [place] [address] Care Team Providers Care Buyer Planner Name Role Phone Danis Morales MD Primary Care Provide r Encounter Details Date Type Department Care Team (Late st Contact Info) Description 12/25/2022 Orders Only [facility] CHC MED & PEDS [address] [place], [place] [phone] Pat Goldberg LPN Social History Tobacco Use [...] documented as of this encounter Care Teams Buyer Planner Relationship Specialty Start Date End Date Danis Morales MD [address] [place] [address] PCP - General Internal Medicine 11/24/13 documented as of this encounter
--- OUTSIDE RECORDS SUMMARY | 2025-02-09 19:39 | XMS_ITS | Encounter Summary ---
Author Organization [employer] Address 75 [facility] 7t [place] [address] Care Team Providers Care Slubber Tender Name Role Phone Danis Morales MD Primary Care Provide r Encounter Details Date Type Department Care Team (Late st Contact Info) Description 02/16/2022 Orders Only [facility] 230 [place] [address] Ailin Kumar LPN Social History Tobacco Use [...] on filedocumented in this encounter Care Teams Slubber Tender Relationship Specialty Start Date End Date Danis Morales MD [address] [place] [address] PCP - General Internal Medicine 11/24/13 documented as of this encounter
--- OUTSIDE RECORDS SUMMARY | 2025-02-09 19:39 | XMS_ITS | Encounter Summary ---
Author Organization [employer] Address 75 [facility] 7t [place] [address] Care Team Providers Care Manager Food Safety Name Role Phone Danis Morales MD Primary Care Provide r Encounter Details Date Type Department Care Team (Late st Contact Info) Description 04/13/2022 Orders Only [facility] CHC MED & PEDS [address] [place], [place] [phone] Pat Goldberg LPN Social History Tobacco Use [...] filedocumented in this encounter Care Teams Manager Food Safety Relationship Specialty Start Date End Date Danis Morales MD 230 [place] [address] PCP - General Internal Medicine 11/24/13 documented as of this encounter
--- OUTSIDE RECORDS SUMMARY | 2025-02-09 19:39 | XMS_ITS | Encounter Summary ---
Author Organization [employer] Address [address] [place] [address] 7t [place] [address] Care Team Providers Care Evidence Technician Name Role Phone Danis Morales MD Primary Care Provide r Reason for Visit * Reason Onset Date Comments Results 11/24/2022 Encounter Details Date Type Department Care Team ([facility] st Contact Info) Description 11/24/2022 Telephone [facility] MEDICINE 230 [place] [address] Danis Morales MD 230 [place], [place] [phone] Results Social History Tobacco Use Types Packs/Day [...] 3:13 PM EDT T/C to pt. Through [employer] id - [id number] for below message, pt. Verbally agreed and understood. Pt. Also schedule for follow up apt. On 01/04/2023 with PCP. * Telephone Encounter - Lydia Dumont - 11/24/2022 1:19 PM EDT Tc from pt requesting results of labs done 11/23. Please contact pt at [phone] (Norwegian) documented in this encounter Plan of Treatment Not on file documented as of this encounter Visit Diagnoses Not on filedocumented in this encounter Additional Health Concerns Assessment Noted Time PHQ-9 Depression Total Score: 4 06/07/19 23 1:43 PM EDT documented as of this encounter Care Teams Evidence Technician Relationship Specialty Start Date End Date Danis Morales MD [address] [place] [address] PCP - General Internal Medicine 11/24/13 documented as of this encounter
--- OUTSIDE RECORDS SUMMARY | 2025-02-09 19:39 | XMS_ITS | Encounter Summary ---
Author Organization [employer] Address [address] [place] [address] 7t [place] [address] Care Team Providers Care Bean Picker Name Role Phone Danis Morales MD Primary Care Provide r Encounter Details Date Type Department Care Team (Late st Contact Info) Description 09/07/2022 Orders Only [facility] MEDICINE 230 [place], [place] [phone] Ailin Kumar LPN Social History Tobacco Use [...] documented as of this encounter Care Teams Bean Picker Relationship Specialty Start Date End Date Danis Morales MD 230 [place], [place] [phone] PCP - General Internal Medicine 11/24/13 documented as of this encounter
--- OUTSIDE RECORDS SUMMARY | 2025-02-09 19:39 | XMS_ITS | Encounter Summary ---
Author Organization [employer] Address 75 [facility] 7t [place] [address] Care Team Providers Care Supervisor Cell Operation Name Role Phone Danis Morales MD Primary Care Provide r Encounter Details Date Type Department Care Team (Late st Contact Info) Description 05/30/2022 Orders Only [facility] CH[facility] MED & PEDS [address] [place] [address] Pat Goldberg LPN Social History Tobacco Use [...] on filedocumented in this encounter Care Teams Supervisor Cell Operation Relationship Specialty Start Date End Date Danis Morales MD [address] [place] [address] PCP - General Internal Medicine 11/24/13 documented as of this encounter
--- OUTSIDE RECORDS SUMMARY | 2025-02-09 19:39 | XMS_ITS | Clinical Summary ---
Author Organization 175 [facility] Address 175 [place] [address] Phone Care Team Providers Care Inspector Ball Points Name Role Phone Danis Laurent MD Primary [...] 1:00 PM EDT Office Visit Orthopedic Surgery [facility] [address] [facility] [address] [place] [phone] Kyle Kimball DPM Controlled type 2 diabetes [...] PM EDT Office Visit Orthopedic Surgery - [place] 250 [address] [facility] [address] [place] [phone] Kyle Kimball, DPM 175 [facility] [address] [place] [address] Health Maintenance Due Date Last Done Comments [...] ID:[id number] Group ID:[id number] Type:Not on file Address: [place] [address] [address] [address] Care Teams Inspector Ball Points Relationship Specialty Start Date End Date Danis Laurent MD [address] [place] [address] PCP - General Internal Medicine 07/03/24
--- OUTSIDE RECORDS SUMMARY | 2025-02-09 19:39 | XMS_ITS | Encounter Summary ---
Author Organization [employer] Address 75 [facility] 7t [place] [address] Care Team Providers Care Nail Tech Name Role Phone Danis Morales MD Primary Care Provide r Encounter Details Date Type Department Care Team (Late st Contact Info) Description 09/25/2022 Orders Only [facility] MED & PEDS [address] [place], [place] [phone] Pat Goldberg LPN Social History Tobacco Use [...] documented as of this encounter Care Teams Nail Tech Relationship Specialty Start Date End Date Danis Morales MD [address] [place] [address] PCP - General Internal Medicine 11/24/13 documented as of this encounter
--- OUTSIDE RECORDS SUMMARY | 2025-02-09 19:39 | XMS_ITS | Encounter Summary ---
Author Organization [employer] Address [address] [facility] [address] [place] [address] Care Team Providers Care Crop Quantitative Geneticist Name Role Phone Danis Morales MD Primary Care Provide r Encounter Details Date Type Department Care Team (Late st Contact Info) Description 04/10/2022 Orders Only [facility] [address] [place], [place] [phone] Ailin Kumar LPN Social History Tobacco Use [...] filedocumented in this encounter Care Teams Crop Quantitative Geneticist Relationship Specialty Start Date End Date Danis Morales MD [address] [place] [address] PCP - General Internal Medicine 11/24/13 documented as of this encounter
--- OUTSIDE RECORDS SUMMARY | 2025-02-09 19:39 | XMS_ITS | Encounter Summary ---
Author Organization [employer] Address [address] [place] [address] Care Team Providers Care City Councilman Name Role Phone Danis Morales MD Primary Care Provide r Encounter Details Date Type Department Care Team (Late st Contact Info) Description 09/01/2024 Refill [facility] [address] [place], [place] [phone] Danis Morales MD [address] [place], [place] [phone] Depressive disorder Social History Tobacco Use Types [...] documented as of this encounter Care Teams City Councilman Relationship Specialty Start Date End Date Danis Morales MD [address] [place] [address] PCP - General Internal Medicine 11/24/13 documented as of this encounter
--- OUTSIDE RECORDS SUMMARY | 2025-02-09 19:39 | XMS_ITS | Clinical Summary ---
Author Organization [employer] Address [address] [facility] [address] [place] [address] Care Team Providers Care Freight Adjuster Name Role Phone Danis Morales MD Primary [...] record from that organization. [employer] Short Pen Kimberly 31G X 8 MM miscIndication s:Type 2 diabetes mellitus without complication, unspecified whether technician terminal and repeater insulin use USE EVERY EVENING 100 each 3 023 Active montelukast (Singulair) 10 MG tablet TAKE 1 TABLET BY MOUTH EVERY EVENING 30 tablet 6 024 Active Continuous Glucose Customer Sales Representative (FreeStyle Briana 2 [place]) deviceIndicati ons:Type 2 diabetes mellitus without complication, with long-term current use of insulin ([facility]) Scan sensor every 8 hours 1 each 3 024 Active Continuous Glucose Sensor (FreeStyle Briana 2 Sensor) miscIndication s:Type 2 diabetes mellitus without complication, with long-term current use of insulin ([facility]) Apply 1 sensor every 14 days [...] complication, with long-term current use of insulin ([facility]) INJECT 42 UNITS SUBCUTANEOUSLY AT BEDTIME [...] mouth in the morning. 30 tablet 6 5 3:51 PM EST 025 Active repaglinide (Prandin) 0.5 MG tabletIndicati ons:Type 2 diabetes mellitus without complication, with long-term current use of insulin ([facility]) TAKE 1 TABLET BY MOUTH THREE TIMES DAILY 90 tablet 6 5 3:51 PM EST 025 Active metFORMIN (Glucophage) 1000 MG tablet [...] medication). CKD stage 3a, GFR 45-59 ml/min ([facility]) 024 Assessment & Plan (01/13/2025 12:45 PM [...] Plan (08/23/2023 11:56 AM EDT): Evaluated by Sand Mixer Operator Dr Ocampo Stress testing 06/2023 Negative [...] were wnl. Pt currently following with GI. [facility] health care 06/06/2022 Assessment & Plan (01/13/2025 12:50 [...] work up. He was seen by a fire prevention specialist (Dr Patel) last seen 04/13/2015 he repeated his PFTs that were almost normal so he recommended to DC Advair and Spiriva and keep him on Albuterol prn only Of note pt has had PFT'S and a Methacholine challenge at [facility] that was negative. Pt is on Advair HFA 250/50, Singulair and Albuterol He is now under the care of Dr Pa Watson, last seen 03/14/2024 Assessment & Plan (09/27/2023 2:39 PM EDT): Doing well, no recent exacerbation Pt has a Hx of a chronic cough for which he had an extensive pulmonary work up. He was seen by a fire prevention specialist (Dr Patel) last seen 04/13/2015 he repeated his PFTs that were almost normal so he recommended to DC Advair and Spiriva and keep him on Albuterol prn only Of note pt has had PFT'S and a Methacholine challenge at [facility] that was negative. Pt is on Advair HFA 250/50, Singulair and Albuterol He is now under the care of Dr Pa Watson, last seen 09/10/2023 Assessment & Plan (08/23/2023 11:46 AM EDT): Doing well, no recent exacerbation Pt has a Hx of a chronic cough for which he had an extensive pulmonary work up. He was seen by a fire prevention specialist (Dr Patel) last seen 04/13/2015 he repeated his PFTs that were almost normal so he recommended to DC Advair and Spiriva and keep him on Albuterol prn only Of note pt has had PFT'S and a Methacholine challenge at [facility] that was negative. Pt is on Advair HFA 250/50 and Albuterol He is now under the care of Dr Pa Watson, last seen 02/2023 Assessment & Plan (06/06/2022 1:47 PM EDT): Doing well, no recent exacerbation Pt has a Hx of a chronic cough for which he had an extensive pulmonary work up. He was seen by a fire prevention specialist (Dr Patel) last seen 04/13/2015 he repeated his PFTs that were almost normal so he recommended to DC Advair and Spiriva and keep him on Albuterol prn only Of note pt has had PFT'S and a Methacholine challenge at [facility] that was negative. Pt [...] 8 Eye exam last done by Dr Connor(drafter directional survey). Microalbumin checked on: 06/20/2023 was: 0.4 Pt is not on an JOSEPHINE inhibitor/ARB due to previous concerns of cough induced by JOSEPHINE and borderline low blood pressure. Foot check risk of zero Pt reports compliance with Asa 81 mg po daily Pt advised to: adhere to diabetic diet check your blood sugars regularly check your feet on a daily basis Plan: As per [facility] Endocrinology, pt tells me has appointment in [...] 7 Eye exam last done by Dr Connor(drafter directional survey). Microalbumin checked on: 06/20/2023 was: 0.4 Pt is not on an JOSEPHINE inhibitor/ARB due to previous concerns of cough induced by JOSEPHINE and borderline low blood pressure. Foot check risk of zero Pt reports compliance with Asa 81 mg po daily Pt advised to: adhere to diabetic diet check your blood sugars regularly check your feet on a daily basis Plan: As per [facility] Endocrinology Assessment & Plan [...] 7 Eye exam last done by Dr Connor(drafter directional survey). Microalbumin checked on: 06/20/2023 was: 0.4 Pt is not on an JOSEPHINE inhibitor/ARB due to previous concerns of cough induced by JOSEPHINE and borderline low blood pressure. Foot check risk of zero Pt reports compliance with Asa 81 mg po daily Pt advised to: adhere to diabetic diet check your blood sugars regularly check your feet on a daily basis Plan: As per [facility] Endocrinology Assessment & Plan [...] medications. Eye exam last done by Dr Connor(drafter directional survey). Microalbumin checked on: 06/20/2023 was: 0.4 Pt is not on an JOSEPHINE inhibitor/ARB due to previous concerns of cough induced by JOSEPHINE and borderline low blood pressure. Foot check risk of zero Pt reports compliance with Asa 81 mg po daily Pt advised to: adhere to diabetic diet check your blood sugars regularly check your feet on a daily basis Plan: As per [facility] Endocrinology Assessment & Plan [...] medications. Eye exam last done by Dr Connor(drafter directional survey). Microalbumin checked on: 04/19/2020 was: 1.4 Pt is not on an JOSEPHINE inhibitor/ARB due to previous concerns of cough induced by JOSEPHINE and borderline low blood pressure. Foot check risk of zero Pt reports compliance with Asa 81 mg po daily Pt advised to: adhere to diabetic diet check your blood sugars regularly check your feet on a daily basis Plan: As per [facility] Endocrinology Assessment & Plan [...] Endocrinology Eye exam last done by Dr Connor(drafter directional survey). Microalbumin checked on: 04/19/2020 was: 1.4 Pt is not on an JOSEPHINE inhibitor/ARB due to previous concerns of cough induced by JOSEPHINE and borderline low blood pressure. Foot check risk of zero Pt reports compliance with Asa 81 mg po daily Pt advised to: adhere to diabetic diet check your blood sugars regularly check your feet on a daily basis Plan: As per [facility] Endocrinology Assessment & Plan [...] was asked to schedule an appointment at [facility] Endocrinology, pt insisted that he had one at [facility] but it seems he was confused He was evaluated by our roll tube setter and Manufacturing Shift Supervisor Eye exam last done by Dr Connor(drafter directional survey). Microalbumin checked on: 04/19/2020 was: 1.4 Pt [...] a daily basis Plan: referred back to [facility] Endocrinology Assessment & Plan [...] referred back to Endocrinology Plan: referal to roll tube setter and Manufacturing Shift Supervisor as well as Business Continuity Coordinator at [facility] check BG regularly Increase Lantus to 42 units subcutaneous qhs f/u 3 months with me Eye exam was last done on: 08/24/16. by Dr. Dr Connor(drafter directional survey). Microalbumin checked on: 04/19/2020 was: 1.4 Pt [...] last done on: 08/24/16. by Dr. Dr Connor(drafter directional survey). Microalbumin checked on: 04/19/2020 was: 1.4 Pt [...] shoulder region 01/09/20 15 Assessment & Plan (01/13/2025 1:01 PM EST): [...] under the care of Thoracic surgery at [facility]. Pt seemed convinced that this is contributing to his chronic cough and wanted to have it excised. Pt is now s/p R VATS/pericardial cyst resection by Dr Melissa Smith at [facility] thoracic on 07/10/2012 Pt was noted to be tachycardic during the post op period and started on Cardizem with good effects. For pain control he is using percocet as needed. Pt was last seen by Dr Smith on: 08/28/2012 Pt was seen again for f/u by jni Bhat at [facility] Thoracic on 11/05/13 who [...] a psychotherapist her name is janes Nieves: [phone] Patient denies any suicidal ideation or thoughts, [...] a psychotherapist her name is janes Nieves: [phone] Patient denies any suicidal ideation or thoughts, Patient has crisis numbers and knows to use them if needed He is seeing filter washer Ino Walton , last seen 05/22/2024 On Zolpidem and Zoloft Assessment & Plan (02/07/2024 2:43 PM EST): Patient is no longer under the care of Dr Frantz Mead, see med list for current psych meds. He is seeing a psychotherapist her name is janes Nieves: [phone] Patient denies any suicidal ideation or thoughts, [...] Encounters Date Type Department Care Team Description 02/09/2025 Orders Only GENERIC EXTERNAL DATA DEPARTMENT Provider, Generic External Data 01/13/2025 1:00 PM EST Office Visit [facility] [address] [place] [phone] Danis Morales MD Type 2 diabetes mellitus with stage 3a chronic kidney disease, with long-term current use of insulin ([facility]) (Primary Dx); Mixed hyperlipidemia; Oropharyngeal dysphagia; CKD stage 3a, GFR 45-59 ml/min ([facility]) ([facility]); Benign prostatic hyperplasia (BPH) with straining on urination; Impingement syndrome of left shoulder; Encounter for immunization; Preventative health care 01/13/2025 Travel 01/13/2025 Refill [facility] [address] [place] [phone] Jacklyn Arthur MD 01/12/2025 Telephone [facility] [address] [place] [phone] Shayy Dumont MA chart prep 01/06/2025 Patient Outreach [address] [address] Danis Morales MD Pre-visit Planning (Pre-visit planning - unable to leave a message, NOT IN SERVICE ) 12/14/2024 Refill [facility] [address] [place] [phone] Danis Morales MD 12/11/2024 4:00 PM EDT Office Visit [facility] [address] [place] [phone] Jacklyn Arthur MD Chronic left shoulder pain (Primary Dx) 12/11/2024 Travel 11/27/2024 Orders Only GENERIC EXTERNAL DATA DEPARTMENT Provider, Generic External Data 11/17/2024 Refill [facility] [address] [place] [address] Danis Morales MD 11/15/2024 Refill [facility] [address] [place] [address] Danis Morales MD Type 2 diabetes mellitus without complication, with long-term current use of insulin ([facility]) from Last 3 Months Immunizations Immunization Administration [...] Procedure Name Priority Date/Time Associated Diagnosis Comments BASIC METABOLIC PANEL Routine 02/09/2025 1:35 PM EST CBC Routine 02/09/2025 1:35 PM EST POCT GLYCATED HEMOGLOBIN, TOTAL Routine 01/13/2025 12:51 PM EST Type 2 diabetes mellitus with stage 3a chronic kidney disease, with long-term current use of insulin ([facility]) POCT GLUCOSE Routine 01/13/2025 12:50 PM EST Type 2 diabetes mellitus with stage 3a chronic kidney disease, with long-term current use of insulin ([facility]) XR SHOULDER 2+ VIEWS LEFT STAT 12/12/2024 [...] current use of insulin (CMS/HCC) Mixed hyperlipidemia HEPATITIS C AB W/REFL TO HCV RNA, QN, PCR Routine 06/19/2022 8:29 AM EDT Mixed hyperlipidemia HM COLONOSCOPY Routine 12/11/2019 from Last 3 Months or Most Recently Relevant to Health Maintenance Results * CBC (02/09/2025 1:35 PM EST) White Blood Count 10.7 4.8 - 10.8 X10*3/uL [facility] Red Blood Count 5.28 4.60 - 5.80 X10*6/uL [facility] Hemoglobin 15.3 14.0 - 18.0 g/dl [facility] Hematocrit 47.9 42.0 - 52.0 % [facility] Mean Corpuscular Volume 90.7 80.0 - 98.0 fL [facility] Mean Corpuscular Hemoglobin 29.0 27.0 - 33.0 pg [facility] Mean Corpuscular HGB Conc 31.9 31.0 - 36.0 g/dl [facility] Red Cell Distribution Width 14.0 11.0 - 16.0 % [facility] Platelet Count 225 160 - 400 X10*3/uL [facility] Mean Platelet Volume 9.7 9.4 - 12.4 fL [facility] NRBC Pct Auto 0.0 0.0 - 0.2 /100WBC [facility] NRBC Abs Auto 0.000 0.0 - 0.012 X10*3/uL [facility] 02/09/2025 1:35 PM EST 02/09/2025 1:35 PM EST us Generic External Data Provider LAB BLOOD ORDERAB LES Final Result [facility] [address] [place] [phone] * (ABNORMAL) Basic Metabolic Panel (02/09/2025 1:35 PM EST) Sodium 135 135 - 145 mmol/L [facility] Potassium 4.3 3.3 - 5.1 mmol/L [facility] Chloride 106 96 - 108 mmol/L [facility] Carbon Dioxide 19(L) 22 - 29 mmol/L [facility] Anion Gap 14 12 - 20 [facility] Urea Nitrogen (BUN) 23(H) 9 - 16 mg/dL [facility] Creatinine, Serum 1.30 0.5 - 1.4 mg/dL [facility] Estimated Glomerular Filt Rate 55 [facility] Comment:Chronic Kidney Disea se: Estimated GFR < 60 mL/min/1.43a2Piydsp Kidney Disease: Estimated GFR < 15 mL/min/1.73m2 Glucose 330(H) 60 - 115 mg/dL [facility] Calcium 9.3 8.4 - 10.2 mg/dL [facility] 02/09/2025 1:35 PM EST 02/09/2025 1:35 PM EST us Generic External Data Provider LAB BLOOD ORDERAB LES Final Result [facility] [address] [place] [phone] * (ABNORMAL) POCT Hgb A1c (01/13/2025 12:51 PM EST) Hemoglobin A1C 8.4(A) 4.0 - 5.7 % QC Media Lot # [id number] Lot# Expiration Date ,027 Blood 01/13/2025 12:5 1 PM EST Danis Solomon MD POINT OF CARE TEST EN TER/EDIT ORDERABLES Final Result * (ABNORMAL) POCT Glucose (01/13/2025 12:50 PM EST) Pathologist [facility] Glucose Blood, POC 233(A) 60 - 200 mg/dL QC Media Lot # [id number] Lot# Expiration Date 02,146 Blood Capillary blood specimen / Unknown 01/13/2025 12:50 PM EST us Danis Solomon MD POINT OF CARE TEST EN TER/EDIT ORDERABLES Final Result * XR Shoulder 2+ Views Left (12/12/2024 1:05 PM EDT) Anatomical Region Laterality Modality Upper Extremities, Shoulder Left Radi ographic Imaging 12/12/2024 1:05 PM EDT Narrative 12/12/2024 1:17 PM EDT [facility] [address] [place] [address] XRay Report Signed Patient: Sancho Loya MR#: [id number] : 1960 Acct:[id number] Age/Sex: 64 / M ADM Date: 12/12/24 Loc: HO.HHCX Attending Dr: Jacklyn Arthur MD Ordering Physician: Jacklyn Arthur MD Date of Service: 12/12/24 Procedure(s): XR shoulder LT min 2V Accession Number(s): [id number] cc: Danis Laurent MD; Jacklyn Arthur MD [...] Durán MD 12/12/2024 01:14 PM EDT RP Workstation: [id number] Dictated By: Doug Durán MD Signed By: <Electronically signed by Doug Durán MD in OV> 12/12/24 1314 DD/ 1305 TD/TT: 12/12/24 1307 Stitcher Standard Machine: Procedure Note Donotuseinterpreter, Image - 12/12/2024 [place] [address] XRay Report Signed Patient: Sancho Loya LMR#: [id number] : 9Acct:[id number] Age/Sex: 64 / MADM Date: 12/12/24 Loc: HO.HHCX Attending Dr: Jacklyn Arthur MD Ordering Physician: Jacklyn Arthur MD Date of Service: 12/12/24 Procedure(s): XR shoulder LT min 2V Accession Number(s): [id number] cc: Danis Laurent MD; Jacklyn Arthur MD [...] 12/12/24 1314 DD/ 1305 TD/TT: 12/12/24 1307 Stitcher Standard Machine: us Jacklyn Arthur MD IMG XR PROCEDURES Final Resul t * US BLADDER (12/02/2024 11:17 AM EDT) Anatomical Region Laterality Modality Abdomen Ultrasound 12/02/2024 11:1 7 AM EDT Narrative 12/02/2024 11:18 AM EDT [address] [address] Ultrasound Report Signed Patient: Sancho Loya MR#: [id number] : 1960 Acct:[id number] Age/Sex: 64 / M ADM Date: 12/01/24 Loc: .US Attending Dr: Letty Hill MD Ordering Physician: Letty Hill MD Date of Service: 12/01/24 Procedure(s): US bladder Accession Number(s): [id number] cc: Letty Hill MD; Danis Laurent MD [...] signed by Elijah Banks MD in OV> 12/02/24 1117 DD/ 1117 TD/TT: 12/02/247 Stitcher Standard Machine: Procedure Note Donotuseinterpreter, Image - 12/02/[address] [address] Ultrasound Report Signed Patient: Sancho Loya LMR#: [id number] : 9Acct:[id number] Age/Sex: 64 / MADM Date: 12/01/24 Loc: .US Attending Dr: Letty Hill MD Ordering Physician: Letty Hill MD Date of Service: 12/01/24 Procedure(s): US bladder Accession Number(s): [id number] cc: Letty Hill MD; Danis Laurent MD [...] signed by Elijah Banks MD in OV> 12/02/24 1117 DD/ 1117 TD/TT: 12/02/24 1117 Stitcher Standard Machine: us [facility] External Provider IMG US PROCEDURES Final Result * (ABNORMAL) CBC auto differential (11/27/2024 2:52 PM EDT) White Blood Count 13.1(H) 4.8 - 10.8 X10*3/uL [facility] Red Blood Count 5.16 4.60 - 5.80 X10*6/uL [facility] Hemoglobin 15.2 14.0 - 18.0 g/dl [facility] Hematocrit 46.2 42.0 - 52.0 % [facility] Mean Corpuscular Volume 89.5 80.0 - 98.0 fL [facility] Mean Corpuscular Hemoglobin 29.5 27.0 - 33.0 pg [facility] Mean Corpuscular HGB Conc 32.9 31.0 - 36.0 g/dl [facility] Red Cell Distribution Width 14.8 11.0 - 16.0 % [facility] Platelet Count 226 160 - 400 X10*3/uL [facility] Mean Platelet Volume 9.1(L) 9.4 - 12.4 fL [facility] Neutrophils Percent Auto 58.9 45 - 73 % [facility] Imm Gran Pct Auto 0.6(H) 0.0 - 0.4 % [facility] Lymphocytes Percent Auto 23.4 20 - 40 % [facility] Monocytes Percent Auto 9.7 2 - 11 % [facility] Eosinophils Percent Auto 6.6(H) 0 - 4 % [facility] Basophils Percent Auto 0.8 0 - 2 % [facility] NRBC Pct Auto 0.0 0.0 - 0.2 /100WBC [facility] Neutrophils Absolute Auto 7.7 2.0 - 8.3 x10*3/uL [facility] Imm Gran Abs Auto 0.08(H) 0.00 - 0.03 X10*3/uL [facility] Lymphocytes Absolute Auto 3.1 1.2 - 4.9 X10*3/uL [facility] Monocytes Absolute Auto 1.3(H) 0.1 - 1.2 X10*3/uL [facility] Eosinophils Absolute Auto 0.9(H) 0.0 - 0.4 X10*3/uL [facility] Basophils Absolute Auto 0.1 0.0 - 0.2 X10*3/uL [facility] NRBC Abs Auto 0.000 0.0 - 0.012 X10*3/uL [facility] 11/27/2024 2:52 PM EDT 11/27/2024 2:52 PM EDT us Generic External Data Provider LAB BLOOD ORDERAB LES Final Result [facility] [address] [place] [phone] * (ABNORMAL) Comprehensive Metabolic Panel (11/27/2024 2:52 PM EDT) Sodium 138 135 - 145 mmol/L [facility] Potassium 4.7 3.3 - 5.1 mmol/L [facility] Comment:Slight Hemolysis.Int erpret result with caution. Chloride 107 96 - 108 mmol/L [facility] Carbon Dioxide 23 22 - 29 mmol/L [facility] Anion Gap 13 12 - 20 [facility] Urea Nitrogen (BUN) 17(H) 9 - 16 mg/dL [facility] Creatinine, Serum 1.15 0.5 - 1.4 mg/dL [facility] Estimated Glomerular Filt Rate >60 [facility] Comment:Chronic Kidney Disea se: Estimated GFR < 60 mL/min/1.71z3Kjcdfs Kidney Disease: Estimated GFR < 15 mL/min/1.73m2 Glucose 100 60 - 115 mg/dL [facility] Calcium 9.4 8.4 - 10.2 mg/dL [facility] Bilirubin, Total 0.2 0.0 - 1.0 mg/dL [facility] Aspartate Amino Transferase 28 5 - 37 U/L [facility] Comment:Slight Hemolysis.Int erpret result with caution. Alanine Aminotransferase 28 0 - 40 U/L [facility] Total Protein 8.4(H) 6.5 - 8.0 g/dL [facility] Albumin Level 4.4 3.5 - 5.0 g/dL [facility] Alkaline Phosphatase 69 39 - 117 U/L [facility] 11/27/2024 2:52 PM EDT 11/27/2024 2:52 PM EDT us Generic External Data Provider LAB BLOOD ORDERAB LES Final Result [facility] [address] [place] [phone] * Lipid Panel, Standard (09/12/2024 11:50 AM EDT) Triglycerides 111 <150 mg/dL [facility] Comment:Desirable Triglyceri de: less than 150 mg/dLBorderline High Triglyceride 150-199 mg/dLHigh Triglyceride: 200-499 mg/dLVery High Triglyceride: greater than or equal to 5OO mg/dL Cholesterol 120 <200 mg/dL [facility] Comment:Desirable Cholestero l: less than 200 mg/dLBorderline High Cholesterol: 200-239 mg/dLHigh Cholesterol: greater than 239 mg/dL LDL Cholesterol Calculated 55 <100 mg/dL [facility] Comment:Desirable LDL: less than 100 mg/dLNear Optimal/Above Optimal LDL: 110- 129 mg/dLBorderline High LDL: 130-159 mg/dLHigh LDL: 160-189 mg/dLVery High LDL: greater than or equal to 190 mg/dL HDL Cholesterol 43 >40 mg/dL [facility] Comment:Desirable HDL: great er than 40 mg/dL Note: This HDL assay may give artificially low results in patients with liver disease. Blood Venous blood specimen / Unknown 09/12/2024 11:50 AM EDT 09/12/2024 12:55 PM EDT us Danis Solomon MD LAB BLOOD ORDERABLES Final Result [facility] [address] [place] [phone] * Hepatitis C Antibody with Reflex to HCV, RNA, Quantitative, Real-Time PCR (06/19/2022 8:29 AM EDT) Hepatitis C Antibody NON-REACT JIMY NON-REACT JIMY [facility] [place] [employer] Index 0.10 <1.00 [facility] [employer] Comment: HCV antibody was non-reactive. There is no laboratory evidence of HCV infection. In most cases, no further action is required. However, if recent HCV exposure is suspected, a test for HCV RNA (test code 64040) is suggested. For additional information please refer to http://education.[employer]/faq/GOZ63s9 (This link is being provided for informational/ educational purposes only.) Blood Venous blood specimen / Unknown 06/19/2022 8:29 AM EDT 06/19/2022 8:29 AM EDT Narrative [facility] - 06/19/2022 10:33 PM EDT FASTING:YES FASTING: YES Danis Solomon MD LAB BLOOD ORDERABLES Final Result [facility] [address], [place] [phone] [facility] [address] [place] [phone] * Colonoscopy (12/11/2019) Colonoscopy Normal Normal 12/11/2019 Jessica Montana - 12/11/2019 10:39 AM EDT Recommended 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 follow up due to history of tubular adenoma ( see scanned report )[facility] Historical Provider HEALTH MAINTENANCE Final Result from Last 3 Months or Most Recently Relevant to Health Maintenance Additional Health Concerns Active Problems Noted Date Diagnosed Date Help patients manage their type 2 diabetes 01/12 Patient has chronic kidney disease 01/12/2025 Patient has chronic kidney disease 01/12/2025 Insurance MEDICARE [facility] STANDARD Care Teams Freight Adjuster Relationship Specialty Start Date End Date Danis Morales MD [address] [place] [phone] PCP - General Internal Medicine 11/24/13
--- OUTSIDE RECORDS SUMMARY | 2025-02-09 19:39 | XMS_ITS | Encounter Summary ---
Author Organization [employer] Address [address] [facility] 7t [place] [address] Care Team Providers Care Wrapper Counter Name Role Phone Danis Morales MD Primary Care Provide r Encounter Details Date Type Department Care Team ([facility] st Contact Info) Description 06/28/2022 Abstract [facility] MEDICINE [address] [place] [address] Danis Morales MD [address] [place] [address] Social History Tobacco Use Types Packs/Day Years [...] ( see scanned report )[facility] [place] Provider HEALTH MAINTENANCE Final Result documented in this encounter Visit Diagnoses Not on filedocumented in this encounter Additional Health Concerns Assessment Noted Time PHQ-9 Depression Total Score: 4 06/07/19 23 1:43 PM EDT documented as of this encounter Care Teams Wrapper Counter Relationship Specialty Start Date End Date Danis Morales MD [address] [place] [phone] PCP - General Internal Medicine 11/24/13 documented as of this encounter
--- OUTSIDE RECORDS SUMMARY | 2025-02-09 19:39 | XMS_ITS | Encounter Summary ---
Author Organization [employer] Address [address] [facility] 7t [place] [address] Care Team Providers Care Catering Sous Chef Name Role Phone Danis Morales MD Primary Care Provide r Encounter Details Date Type Department Care Team (Late st Contact Info) Description 02/09/2025 Orders Only GENERIC EXTERNAL DATA [...] [place] documented as of this encounter Procedures Procedure Name Priority Date/Time Associated Diagnosis Comments CBC Routine 02/09/2025 1:35 PM EST BASIC METABOLIC PANEL Routine 02/09/2025 1:35 PM EST documented in this encounter Results * (ABNORMAL) Basic Metabolic Panel (02/09/2025 1:35 PM EST) Sodium 135 135 - 145 mmol/L [facility] Potassium 4.3 3.3 - 5.1 mmol/L [facility] Chloride 106 96 - 108 mmol/L [facility] Carbon Dioxide 19(L) 22 - 29 mmol/L [facility] Anion Gap 14 12 - 20 [facility] Urea Nitrogen (BUN) 23(H) 9 - 16 mg/dL [facility] Creatinine, Serum 1.30 0.5 - 1.4 mg/dL [facility] Estimated Glomerular Filt Rate 55 [facility] Comment:Chronic Kidney Disea se: Estimated GFR < 60 mL/min/1.53k3Hoyeqp Kidney Disease: Estimated GFR < 15 mL/min/1.73m2 Glucose 330(H) 60 - 115 mg/dL [facility] Calcium 9.3 8.4 - 10.2 mg/dL [facility] 02/09/2025 1:35 PM EST 02/09/2025 1:35 PM EST us Generic External Data Provider LAB BLOOD ORDERAB LES Final Result Performing Organization Address [facility]/ZIP Co de Phone Number [facility] [address] [place] [address] [phone] * CBC (02/09/2025 1:35 PM EST) White Blood Count 10.7 4.8 - 10.8 X10*3/uL [facility] Red Blood Count 5.28 4.60 - 5.80 X10*6/uL [facility] Hemoglobin 15.3 14.0 - 18.0 g/dl [facility] Hematocrit 47.9 42.0 - 52.0 % [facility] Mean Corpuscular Volume 90.7 80.0 - 98.0 fL [facility] Mean Corpuscular Hemoglobin 29.0 27.0 - 33.0 pg [facility] Mean Corpuscular HGB Conc 31.9 31.0 - 36.0 g/dl [facility] Red Cell Distribution Width 14.0 11.0 - 16.0 % [facility] Platelet Count 225 160 - 400 X10*3/uL [facility] Mean Platelet Volume 9.7 9.4 - 12.4 fL [facility] NRBC Pct Auto 0.0 0.0 - 0.2 /100WBC [facility] NRBC Abs Auto 0.000 0.0 - 0.012 X10*3/uL [facility] 02/09/2025 1:35 PM EST 02/09/2025 1:35 PM EST us Generic External Data Provider LAB BLOOD ORDERAB LES Final Result Performing Organization Address [facility]/ZIP Co de Phone Number [facility] [address] [place] [address] [phone] documented in this encounter Visit Diagnoses Not on filedocumented in this encounter Additional Health Concerns Active Problems Noted Date Diagnosed Date Help patients manage their type 2 diabetes 01/12 Patient has chronic kidney disease 01/12/2025 Patient has chronic kidney disease 01/12/2025 Assessment Noted Time PHQ-9 Depression Total Score: 3 06/11/19 25 1:54 PM EDT documented as of this encounter Care Teams Catering Sous Chef Relationship Specialty Start Date End Date Danis Morales MD [address] [place] [phone] PCP - General Internal Medicine 11/24/13 documented as of this encounter
--- OUTSIDE RECORDS SUMMARY | 2025-02-09 19:39 | XMS_ITS | Encounter Summary ---
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
== END 2025-02-09 13:29 | disposition home or self-care (01) ==
LOC: HO.LAB 13:28
PROVIDERS: Urology; PCP Internal Medicine; Visit Provider Nurse Practitioner Family
DX: Z01.818 Encounter for other preprocedural examination (principal)
CPT/HCPCS: 36415; 80048; 85027

== ENCOUNTER 2025-02-11 13:28 | Outpatient (AMB) | payer OTHER, SELFPAY ==
--- NOTE | 2025-02-11 13:41 | HO.NEPHOV_ITS ---
Vital Signs 02/11/25 13:42 Height 5 ft 9 in Weight 198 lb 2 oz BMI 29.3 BP 110/60 Blood Pressure Location Rt brachial Position Sitting Pulse 101 H Pulse Source Pulse Oximeter Pulse Oximetry (%) 95 Oxygen Delivery Method Room Air Intake Visit Reasons: 4 MO FU w Labs-Conf Sweep Press Operator Required: Yes Sweep Press Operator Language: Informatics Nurse Specialist Services: Sweep Press Operator Present Sweep Press Operator Name: Camilla [id number] Information Interpreted: clinical only Accompanied by: Self / Same As Patient Allergies No Known Allergies Allergy (Verified 02/11/25 13:42) HPI Comments Details: Sancho was seen in follow up for his CKD . He is a long standing diabetic but has not had any significant proteinuria. He is on multiple blood sugar lowering medications including Jardiance. He denies any hypoglycemias. He is not on any ACEI/ARB and denies taking excess NSAID's. He denies any CAD, carotid stenosis, CVA, PAD, SHAE or CHF. He denies any epistaxis, photosensitivity, skin rashes, edema, hemoptysis, hemetemesis, melena, hematuria, recurrent sore throat, hepatitis, HIV , deafness. His recent serum creatinine is at baseline [facility] Medical History Dysphagia Asthma-COPD overlap syndrome HTN (hypertension) Cough Bronchitis Pneumonia Acute bronchospasm Acute bronchitis with asthma with acute exacerbation New abnormality on chest x-ray Depression Diabetes Chronic GERD Anxiety Hyperlipidemia Asthma Surgical History Status post rotator cuff surgery Hx of toe surgery Hx of repair of rotator cuff Hx of hernia repair Hx of colonoscopy Hx of esophagogastroduodenoscopy Family History Father No problems noted. Mother Hx of breast cancer Sister Diabetes Maternal Aunt Heart problem Social History Household Members: Spouse Housing: Apartment Alcohol intake: unknown Patient Tobacco Use Status: Former Tobacco user Years Smoked: 20 yrs ( quit 8 years ago) Second Hand Smoke Exposure: Yes service: No Current occupational status: retired Review of Systems Const All systems reviewed & are unremarkable except as noted in HPI and below Physical Exam Vital Signs: Last Vital Signs Pulse 101 H 02/11/25 13:42 BP 110/60 02/11/25 13:42 Pulse Ox 95 02/11/25 13:42 Oxygen Delivery Method Room Air 02/11/25 13:42 BMI result Body Mass Index 29.3 Const General: comfortable and no acute distress Orientation/consciousness: patient oriented x3 HEENT Head: Yes normocephalic Mouth: Normal oral and palatal mucosa present Eyes EOM: EOMs intact bilaterally Neck Neck: Yes supple Resp Auscultation: clear to auscultation bilaterally Cardio Jugular venous distension: no JVD Rate: regular rate GI Palpation (GI): Soft to palpation Auscultation: normal bowel sounds General: Yes no CVA tenderness Back/Spine/Pelvis Back: no CVA tenderness Skin General skin exam: no rashes or lesions noted Neuro General: patient oriented x3 and moves all extremities Extrem General: Yes no pedal edema Results Reviewed Nephrology Results: Hgb, (14.0-18.0) 15.3 g/dl 02/09/25 WBC, (4.8-10.8) 10.7 X10*3/uL 02/09/25 Plt Count, (160-400) 225 X10*3/uL 02/09/25 Sodium, (135-145) 135 mmol/L 02/09/25 Potassium, (3.3-5.1) 4.3 mmol/L 02/09/25 Chloride, (96-108) 106 mmol/L 02/09/25 Carbon Dioxide, (22-29) 19 mmol/L L 02/09/25 BUN, (9-16) 23 mg/dL H 02/09/25 Creatinine, (0.5-1.4) 1.30 mg/dL 02/09/25 Calcium, (8.4-10.2) 9.3 mg/dL 02/09/25 Renal US 02/15/24 Assessment & Plan Assessment & Plan (1) HTN (hypertension): Code(s): I10 - Essential (primary) hypertension Category: Medical Qualifiers: Hypertension type: primary hypertension Qualified Code(s): I10 - Essential (primary) hypertension (2) CKD stage 3a, GFR 45-59 ml/min: Code(s): N18.31 - Chronic kidney disease, stage 3a Category: Medical Plan He has DM for long time and has underlying CKD. He never had significant proteinuria in the past. His urine output is good. He is on Jardiance. I plan to initiate him on low dose of ACEI with time. He should avoid NSAID's and ensure good hydration. All these have been explained in detail. Further management is pending evolving data Orders: Orders Creatinine 6 Months I10 - Essential (primary) hypertension, N18.31 - Chronic kidney disease, stage 3a Calcium 6 Months I10 - Essential (primary) hypertension, N18.31 - Chronic kidney disease, stage 3a Blood Urea Nitrogen 6 Months I10 - Essential (primary) hypertension, N18.31 - Chronic kidney disease, stage 3a Electrolytes 6 Months I10 - Essential (primary) hypertension, N18.31 - Chronic kidney disease, stage 3a Coding Level of Care Code Est Pt Level 4 (86545) Diagnoses Primary hypertension I10 Hypertension type: primary hypertension CKD stage 3a, GFR 45-59 ml/min N18.31
[2025-02-11 13:42] VITALS: BP 110/60; PULSE 101; O2SAT 95; BMI 29.3
--- OUTSIDE RECORDS SUMMARY | 2025-02-11 17:39 | XMS_ITS | Encounter Summary ---
Author Organization [employer] Address [address] [facility] [address]t [place] [address] Care Team Providers Care Guide Winder Name Role Phone Danis Morales MD Primary Care Provide r Encounter Details Date Type Department Care Team (Late st Contact Info) Description 12/25/2022 Orders Only [facility] MED & PEDS [address] [place], [place] [phone] Pat Goldberg LPN Social History Tobacco Use [...] documented as of this encounter Care Teams Guide Winder Relationship Specialty Start Date End Date Danis Morales MD [address] [place] [phone] PCP - General Internal Medicine 11/24/13 documented as of this encounter
--- OUTSIDE RECORDS SUMMARY | 2025-02-11 17:39 | XMS_ITS | Encounter Summary ---
Author Organization [employer] Address [address] [facility] 7t [place] [address] Care Team Providers Care Adjunct Philosophy Faculty Name Role Phone Danis Morales MD Primary Care Provide r Encounter Details Date Type Department Care Team ([facility] st Contact Info) Description 06/28/2022 Abstract [facility] MEDICINE [address] [place] [address] Danis Morales MD [address] [place] [address] Social History Tobacco Use Types Packs/Day Years [...] tubular adenoma ( see scanned report )[facility] [place] Historical Provider HEALTH MAINTENANCE Final Result documented in this encounter Visit Diagnoses Not on filedocumented in this encounter Additional Health Concerns Assessment Noted Time PHQ-9 Depression Total Score: 4 06/07/19 23 1:43 PM EDT documented as of this encounter Care Teams Adjunct Philosophy Faculty Relationship Specialty Start Date End Date Danis Morales MD [address] [place] [address] PCP - General Internal Medicine 11/24/13 documented as of this encounter
--- OUTSIDE RECORDS SUMMARY | 2025-02-11 17:39 | XMS_ITS | Clinical Summary ---
Author Organization [facility] Address [address] [place] [address] Phone Care Team Providers Care Commercial Designer Name Role Phone Danis Laurent MD Primary [...] 1:00 PM EDT Office Visit Orthopedic Surgery [facility] [address] [facility] [address] [place] [phone] Kyle Kimball DPM Controlled type 2 diabetes [...] PM EDT Office Visit Orthopedic Surgery - [facility] [address] [facility] [address] [place] [phone] Kyle Kimball, DPM [address] [facility] [address] [place] [address] Health Maintenance Due Date Last Done Comments [...] 2023-Present) Name:IGNACIO SANCHO Relation to Subscriber:Self Name:Sancho gInacio Payer ID:[id number] Group ID:[id number] Type:Not on file Address: [place] [address] [address] [phone] Care Teams Commercial Designer Relationship Specialty Start Date End Date Danis Laurent MD [address] [place] [address] PCP - General Internal Medicine 07/03/24
--- OUTSIDE RECORDS SUMMARY | 2025-02-11 17:39 | XMS_ITS | Encounter Summary ---
Author Organization [employer] Address [address] [facility] [address] 7t [place] [address] Care Team Providers Care Hand Chain Maker Name Role Phone Danis Morales MD Primary Care Provide r Encounter Details Date Type Department Care Team (Late st Contact Info) Description 09/01/2024 Refill [facility] MED [facility] PEDS [address] [place], [place] [phone] Danis Morales MD [address] [place], [place] [phone] Depressive disorder Social History Tobacco Use Types [...] documented as of this encounter Care Teams Hand Chain Maker Relationship Specialty Start Date End Date Danis Morales MD [address] [place] [address] PCP - General Internal Medicine 11/24/13 documented as of this encounter
--- OUTSIDE RECORDS SUMMARY | 2025-02-11 17:39 | XMS_ITS | Encounter Summary ---
Author Organization [employer] Address [address] [facility] 7t [place] [address] Care Team Providers Care Fan Mail Editor Name Role Phone Danis Morales MD Primary Care Provide r Encounter Details Date Type Department Care Team (Late st Contact Info) Description 02/16/2022 Orders Only [facility] [address] [place] [address] Ailin Kumar LPN Social History Tobacco Use [...] on filedocumented in this encounter Care Teams Fan Mail Editor Relationship Specialty Start Date End Date Danis Morales MD [address] [place] [address] PCP - General Internal Medicine 11/24/13 documented as of this encounter
--- OUTSIDE RECORDS SUMMARY | 2025-02-11 17:39 | XMS_ITS | Encounter Summary ---
Author Organization [employer] Address [address] [facility] 7t [place] [address] Care Team Providers Care Forest Management Teacher Name Role Phone Danis Morales MD Primary Care Provide r Encounter Details Date Type Department Care Team (Late st Contact Info) Description 09/25/[address] [facility] CHC MED & PEDS [address] [place], [place] [phone] Pat Goldberg LPN Social History Tobacco Use [...] documented as of this encounter Care Teams Forest Management Teacher Relationship Specialty Start Date End Date Danis Morales MD [address] [place] [phone] PCP - General Internal Medicine 11/24/13 documented as of this encounter
--- OUTSIDE RECORDS SUMMARY | 2025-02-11 17:39 | XMS_ITS | Encounter Summary ---
Author Organization [employer] Address [address] [place] [address] 7t [place] [address] Care Team Providers Care Early Childhood Teacher Assistant Name Role Phone Danis Morales MD Primary Care Provide r Encounter Details Date Type Department Care Team (Late st Contact Info) Description 09/07/2022 Orders Only [facility] MEDICINE [address] [place], [place] [phone] Ailin Kumar LPN Social History Tobacco Use [...] documented as of this encounter Care Teams Early Childhood Teacher Assistant Relationship Specialty Start Date End Date Danis Morales MD [address] [place], [place] [phone] PCP - General Internal Medicine 11/24/13 documented as of this encounter
--- OUTSIDE RECORDS SUMMARY | 2025-02-11 17:39 | XMS_ITS | Encounter Summary ---
Author Organization [employer] Address 75 [facility] 7t [place] [address] Care Team Providers Care Report Writer Name Role Phone Danis Morales MD Primary [...] EST) Sodium 135 135 - 145 mmol/L [facility] Potassium 4.3 3.3 - 5.1 mmol/L [facility] Chloride 106 96 - 108 mmol/L [facility] Carbon Dioxide 19(L) 22 - 29 mmol/L [facility] Anion Gap 14 12 - 20 [facility] Urea Nitrogen (BUN) 23(H) 9 - 16 mg/dL [facility] Creatinine, Serum 1.30 0.5 - 1.4 mg/dL [facility] Estimated Glomerular Filt Rate 55 [facility] Comment:Chronic Kidney Disea se: Estimated GFR < 60 mL/min/1.69g8Voovzn Kidney Disease: Estimated GFR < 15 mL/min/1.73m2 Glucose 330(H) 60 - 115 mg/dL [facility] Calcium 9.3 8.4 - 10.2 mg/dL [facility] 02/09/2025 1:35 PM EST 02/09/2025 1:35 PM EST us Generic External Data Provider LAB BLOOD ORDERAB LES Final Result Performing Organization Address [facility]/ZIP Co de Phone Number [facility] [address] [place] [address] [phone] * CBC (02/09/2025 1:35 PM EST) White Blood Count 10.7 4.8 - 10.8 X10*3/uL [facility] Red Blood Count 5.28 4.60 - 5.80 X10*6/uL [facility] Hemoglobin 15.3 14.0 - 18.0 g/dl [facility] Hematocrit 47.9 42.0 - 52.0 % [facility] Mean Corpuscular Volume 90.7 80.0 - 98.0 fL [facility] Mean Corpuscular Hemoglobin 29.0 27.0 - 33.0 pg [facility] Mean Corpuscular HGB Conc 31.9 31.0 - 36.0 g/dl [facility] Red Cell Distribution Width 14.0 11.0 - 16.0 % [facility] Platelet Count 225 160 - 400 X10*3/uL [facility] Mean Platelet Volume 9.7 9.4 - 12.4 fL [facility] NRBC Pct Auto 0.0 0.0 - 0.2 /100WBC [facility] NRBC Abs Auto 0.000 0.0 - 0.012 X10*3/uL [facility] 02/09/2025 1:35 PM EST 02/09/2025 1:35 PM EST us Generic External Data Provider LAB BLOOD ORDERAB LES Final Result Performing Organization Address [facility]/ZIP Co de Phone Number [facility] [address] [place] [address] [phone] documented in this encounter Visit Diagnoses Not on filedocumented in this encounter Additional Health Concerns Active Problems Noted Date Diagnosed Date Help patients manage their type 2 diabetes 01/12 Patient has chronic kidney disease 01/12/2025 Patient has chronic kidney disease 01/12/2025 Assessment Noted Time PHQ-9 Depression Total Score: 3 06/11/19 25 1:54 PM EDT documented as of this encounter Care Teams Report Writer Relationship Specialty Start Date End Date Danis Morales MD [address] [place] [phone] PCP - General Internal Medicine 11/24/13 documented as of this encounter
--- OUTSIDE RECORDS SUMMARY | 2025-02-11 17:39 | XMS_ITS | Encounter Summary ---
Author Organization [employer] Address [address] [place] [address] 7t [place] [address] Care Team Providers Care Dipper Machine Operator Name Role Phone Danis Morales MD Primary Care Provide r Reason for Visit * Reason Onset Date Comments Results 11/24/2022 Encounter Details Date Type Department Care Team ([facility] st Contact Info) Description 11/24/2022 Telephone [facility] MEDICINE [address] [place] [address] Danis Morales MD [address] [place], [place] [phone] Results Social History Tobacco Use Types Packs/Day [...] 3:13 PM EDT T/C to pt. Through [employer] id - [id number] for below message, pt. Verbally agreed and understood. Pt. Also schedule for follow up apt. On 01/04/2023 with PCP. * Telephone Encounter - Lydia Dumont - 11/24/2022 1:19 PM EDT Tc from pt requesting results of labs done 11/23. Please contact pt at [phone] (Guyanese) documented in this encounter Plan of Treatment Not on file documented as of this encounter Visit Diagnoses Not on filedocumented in this encounter Additional Health Concerns Assessment Noted Time PHQ-9 Depression Total Score: 4 06/07/19 23 1:43 PM EDT documented as of this encounter Care Teams Dipper Machine Operator Relationship Specialty Start Date End Date Danis Morales MD [address] [place] [address] PCP - General Internal Medicine 11/24/13 documented as of this encounter
--- OUTSIDE RECORDS SUMMARY | 2025-02-11 17:39 | XMS_ITS | Encounter Summary ---
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
--- OUTSIDE RECORDS SUMMARY | 2025-02-11 17:39 | XMS_ITS | Encounter Summary ---
Author Organization [employer] Address [address] [facility] 7t [place] [address] Care Team Providers Care Sandblaster Supervisor Name Role Phone Danis Morales MD Primary Care Provide r Encounter Details Date Type Department Care Team (Late st Contact Info) Description 05/30/2022 Orders Only [facility] CH[facility] MED & PEDS [address] [place] [address] Pat Goldberg LPN Social History Tobacco Use [...] on filedocumented in this encounter Care Teams Sandblaster Supervisor Relationship Specialty Start Date End Date Danis Morales MD [address] [place] [phone] PCP - General Internal Medicine 11/24/13 documented as of this encounter
--- OUTSIDE RECORDS SUMMARY | 2025-02-11 17:40 | XMS_ITS | Encounter Summary ---
Author Organization [employer] Address [address] [facility] 7t [place] [address] Care Team Providers Care Bell Spinner Name Role Phone Danis Morales MD Primary Care Provide r Encounter Details Date Type Department Care Team (Late st Contact Info) Description 04/10/2022 Orders Only [facility] [address] [place], [place] [phone] Ailin Kumar LPN Social History Tobacco Use [...] on filedocumented in this encounter Care Teams Bell Spinner Relationship Specialty Start Date End Date Danis Morales MD [address] [place] [address] PCP - General Internal Medicine 11/24/13 documented as of this encounter
--- OUTSIDE RECORDS SUMMARY | 2025-02-11 17:40 | XMS_ITS | Clinical Summary ---
Author Organization [employer] Address [address] [facility] 7t [place] [address] Care Team Providers Care Borough Coordinator Name Role Phone Danis Morales MD Primary [...] record from that organization. [employer] Short Pen [place] 31G X 8 MM miscIndication s:Type 2 diabetes mellitus without complication, unspecified whether rat exterminator insulin use USE EVERY EVENING 100 each 3 023 Active montelukast (Singulair) 10 MG tablet TAKE 1 TABLET BY MOUTH EVERY EVENING 30 tablet 6 024 Active Continuous Glucose Application Packager (FreeStyle Briana 2 [place]) deviceIndicati ons:Type 2 diabetes mellitus without complication, with long-term current use of insulin ([facility]) Scan sensor every 8 hours 1 each 3 024 Active Continuous Glucose Sensor (FreeStyle Briana 2 Sensor) miscIndication s:Type 2 diabetes mellitus without complication, with long-term current use of insulin ([facility]) Apply 1 sensor every [...] complication, with long-term current use of insulin ([facility]) INJECT 42 UNITS SUBCUTANEOUSLY AT BEDTIME 15 mL 3 025 Active BD Pen Needle Cirselda Ultrafine 32G X 4 MM misc USE [...] complication, with long-term current use of insulin ([facility]) TAKE 1 TABLET BY [...] medication). CKD stage 3a, GFR 45-59 ml/min ([facility]) 024 Assessment & Plan (01/13/2025 12:45 PM [...] Plan (08/23/2023 11:56 AM EDT): Evaluated by Channel Cementer Insole Machine Dr Ocampo Stress testing 06/2023 Negative for [...] were wnl. Pt currently following with GI. [facility] health care 06/06/2022 Assessment & Plan [...] work up. He was seen by a title curative specialist (Dr Patel) last seen 04/13/2015 he repeated his PFTs that were almost normal so he recommended to DC Advair and Spiriva and keep him on Albuterol prn only Of note pt has had PFT'S and [place] [facility] [place]. Pt is on Advair HFA 250/50, Singulair and Albuterol He is now under the care of Dr Pa Watson, last seen 03/14/2024 Assessment & Plan (09/27/2023 2:39 PM EDT): Doing well, no recent exacerbation Pt has a Hx of a chronic cough for which he had an extensive pulmonary work up. He was seen by a title curative specialist (Dr Patel) last seen 04/13/2015 he repeated his PFTs that were almost normal so he recommended to DC Advair and Spiriva and keep him on Albuterol prn only Of note pt has had PFT'S and a Methacholine challenge [place] [facility] [place]. Pt is on Advair HFA 250/50, Singulair and Albuterol He is now under the care of Dr Pa Watson, last seen 09/10/2023 Assessment & Plan (08/23/2023 11:46 AM EDT): Doing well, no recent exacerbation Pt has a Hx of a chronic cough for which he had an extensive pulmonary work up. He was seen by a title curative specialist (Dr Patel) last seen 04/13/2015 he repeated his PFTs that were almost normal so he recommended to DC Advair and Spiriva and keep him on Albuterol prn only Of note pt has had PFT'S and a Methacholine challenge [place] [facility] [place]. Pt is on Advair HFA 250/50 and Albuterol He is now under the care of Dr Pa Watson, last seen 02/2023 Assessment & Plan (06/06/2022 1:47 PM EDT): Doing well, no recent exacerbation Pt has a Hx of a chronic cough for which he had an extensive pulmonary work up. He was seen by a title curative specialist (Dr Patel) last seen 04/13/2015 he repeated his PFTs that were almost normal so he recommended to DC Advair and Spiriva and keep him on Albuterol prn only Of note pt has had PFT'S and a Methacholine challenge [place] [facility] [place] was [place]. Pt is on Advair [...] 8 Eye exam last done by Dr Connor(dry plasterer). Microalbumin checked on: 06/20/2023 was: 0.4 Pt is not on an JOSEPHINE inhibitor/ARB due to previous concerns of cough induced by JOSEPHINE and borderline low blood pressure. Foot check risk of zero Pt reports compliance with Asa 81 mg po daily Pt advised to: adhere to diabetic diet check your blood sugars regularly check your feet on a daily basis Plan: As per [facility] [place], pt tells me has appointment in [...] 7 Eye exam last done by Dr Connor(dry plasterer). Microalbumin checked on: 06/20/2023 was: 0.4 Pt is not on an JOSEPHINE inhibitor/ARB due to previous concerns of cough induced by JOSEPHINE and borderline low blood pressure. Foot check risk of zero Pt reports compliance with Asa 81 mg po daily Pt advised to: adhere to diabetic diet check your blood sugars regularly check your feet on a daily basis Plan: As per [facility] Assessment & Plan (06/10/2024 2:11 PM [...] 7 Eye exam last done by Dr Connor(dry plasterer). Microalbumin checked on: 06/20/2023 was: 0.4 Pt is not on an JOSEPHINE inhibitor/ARB due to previous concerns of cough induced by JOSEPHINE and borderline low blood pressure. Foot check risk of zero Pt reports compliance with Asa 81 mg po daily Pt advised to: adhere to diabetic diet check your blood sugars regularly check your feet on a daily basis Plan: As per [facility] [place] Assessment & Plan (02/07/2024 2:37 PM [...] medications. Eye exam last done by Dr Connor(dry plasterer). Microalbumin checked on: 06/20/2023 was: 0.4 Pt is not on an JOSEPHINE inhibitor/ARB due to previous concerns of cough induced by JOSEPHINE and borderline low blood pressure. Foot check risk of zero Pt reports compliance with Asa 81 mg po daily Pt advised to: adhere to diabetic diet check your blood sugars regularly check your feet on a daily basis Plan: As per [facility] Assessment & Plan (09/27/2023 2:41 PM [...] medications. Eye exam last done by Dr Connor(dry plasterer). Microalbumin checked on: 04/19/2020 was: 1.4 Pt is not on an JOSEPHINE inhibitor/ARB due to previous concerns of cough induced by JOSEPHINE and borderline low blood pressure. Foot check risk of zero Pt reports compliance with Asa 81 mg po daily Pt advised to: adhere to diabetic diet check your blood sugars regularly check your feet on a daily basis Plan: As per [facility] [place] Assessment & Plan (08/23/2023 11:45 AM [...] Endocrinology Eye exam last done by Dr Connor(dry plasterer). Microalbumin checked on: 04/19/2020 was: 1.4 Pt is not on an JOSEPHINE inhibitor/ARB due to previous concerns of cough induced by JOSEPHINE and borderline low blood pressure. Foot check risk of zero Pt reports compliance with Asa 81 mg po daily Pt advised to: adhere to diabetic diet check your blood sugars regularly check your feet on a daily basis Plan: As per [facility] Assessment & Plan (01/04/2023 2:30 PM [...] was asked to schedule an appointment at [facility] [place], pt insisted that he had one [place] [facility] but it seems he was confused He was evaluated by our software educator and Guide Eye exam last done by Dr Connor(dry plasterer). Microalbumin checked on: 04/19/2020 was: 1.4 Pt [...] a daily basis Plan: referred back to [facility] Assessment & Plan (10/10/2022 1:36 PM [...] referred back to Endocrinology Plan: referal to software educator and Guide as well as Blasting Gang Miner at [facility] check BG regularly Increase Lantus to 42 units subcutaneous qhs f/u 3 months with me Eye exam was last done on: 08/24/16. by Dr. Dr Connor(dry plasterer). Microalbumin checked on: 04/19/2020 was: 1.4 Pt [...] last done on: 08/24/16. by Dr. Dr Connor(dry plasterer). Microalbumin checked on: 04/19/2020 was: 1.4 Pt [...] under the care of Thoracic surgery at [facility]. Pt seemed convinced that this is contributing to his chronic cough and wanted to have it excised. Pt is now s/p R VATS/pericardial cyst resection by Dr Melissa Smith at [facility] [place] on 07/10/2012 Pt was noted to be tachycardic during the post op period and started on Cardizem with good effects. For pain control he is using percocet as needed. Pt was last seen by Dr Smith on: 08/28/2012 Pt was seen again for f/u by jin Bhat at [facility]acic on 11/05/13 who recommended NO further [...] a psychotherapist her name is janes Nieves: [phone] Patient denies any suicidal ideation or thoughts, [...] a psychotherapist her name is janes Nieves: [phone] Patient denies any suicidal ideation or thoughts, Patient has crisis numbers and knows to use them if needed He is seeing supervisor framing mill Ino Walton , last seen 05/22/2024 On Zolpidem and Zoloft Assessment & Plan (02/07/2024 2:43 PM EST): Patient is no longer under the care of Dr Frantz Mead, see med list for current psych meds. He is seeing a psychotherapist her name is janes Nieves: [phone] Patient denies any suicidal ideation or thoughts, [...] Data 01/13/2025 1:00 PM EST Office Visit [facility] [address] [place] [phone] Danis Morales MD Type 2 diabetes mellitus with stage 3a chronic kidney disease, with long-term current use of insulin ([facility]) (Primary Dx); Mixed hyperlipidemia; Oropharyngeal dysphagia; CKD stage 3a, GFR 45-59 ml/min ([facility]) ([facility]); Benign prostatic hyperplasia (BPH) with straining on urination; Impingement syndrome of left shoulder; Encounter for immunization; Preventative health care 01/13/2025 Travel 01/13/2025 Refill [facility] [address] [place] [phone] Jacklyn Arthur MD 01/12/2025 Telephone [facility] [address] [place] [phone] Shayy Dumont MA chart prep 01/06/2025 Patient Outreach [address] [phone] Danis Morales MD Pre-visit Planning (Pre-visit planning - unable to leave a message, NOT IN SERVICE ) 12/14/2024 Refill [facility] [address] [place] [phone] Danis Morales MD 12/11/2024 4:00 PM EDT Office Visit [facility] [address] [place] [phone] Jacklyn Arthur MD Chronic left shoulder pain (Primary Dx) 12/11/2024 Travel 11/27/2024 Orders Only GENERIC EXTERNAL DATA DEPARTMENT Provider, Generic External Data 11/17/2024 Refill [facility] [address] [place] [address] Danis Morales MD 11/15/2024 Refill [facility] [address] [place] [address] Danis Morales MD Type 2 diabetes mellitus without complication, with long-term current use of insulin ([facility]) from Last 3 Months Immunizations Immunization Administration [...] disease, with long-term current use of insulin ([facility]) POCT GLUCOSE Routine 01/13/2025 12:50 PM EST Type 2 diabetes mellitus with stage 3a chronic kidney disease, with long-term current use of insulin ([facility]) XR SHOULDER 2+ VIEWS LEFT STAT 12/12/2024 [...] Blood Count 10.7 4.8 - 10.8 X10*3/uL [facility] Red Blood Count 5.28 4.60 - 5.80 X10*6/uL [facility] Hemoglobin 15.3 14.0 - 18.0 g/dl [facility] Hematocrit 47.9 42.0 - 52.0 % [facility] Mean Corpuscular Volume 90.7 80.0 - 98.0 fL [facility] Mean Corpuscular Hemoglobin 29.0 27.0 - 33.0 pg [facility] Mean Corpuscular HGB Conc 31.9 31.0 - 36.0 g/dl [facility] Red Cell Distribution Width 14.0 11.0 - 16.0 % [facility] Platelet Count 225 160 - 400 X10*3/uL [facility] Mean Platelet Volume 9.7 9.4 - 12.4 fL [facility] NRBC Pct Auto 0.0 0.0 - 0.2 /100WBC [facility] NRBC Abs Auto 0.000 0.0 - 0.012 X10*3/uL [facility] 02/09/2025 1:35 PM EST 02/09/2025 1:35 PM EST us Generic External Data Provider LAB BLOOD ORDERAB LES Final Result [facility] [address] [place] [phone] * (ABNORMAL) Basic Metabolic Panel (02/09/2025 1:35 PM EST) Sodium 135 135 - 145 mmol/L [facility] Potassium 4.3 3.3 - 5.1 mmol/L [facility] Chloride 106 96 - 108 mmol/L [facility] Carbon Dioxide 19(L) 22 - 29 mmol/L [facility] Anion Gap 14 12 - 20 [facility] Urea Nitrogen (BUN) 23(H) 9 - 16 mg/dL [facility] Creatinine, Serum 1.30 0.5 - 1.4 mg/dL [facility] Estimated Glomerular Filt Rate 55 [facility] Comment:Chronic Kidney Disea se: Estimated GFR < 60 mL/min/1.80r6Vvprpe Kidney Disease: Estimated GFR < 15 mL/min/1.73m2 Glucose 330(H) 60 - 115 mg/dL [facility] Calcium 9.3 8.4 - 10.2 mg/dL [facility] 02/09/2025 1:35 PM EST 02/09/2025 1:35 PM EST us Generic External Data Provider LAB BLOOD ORDERAB LES Final Result [facility] [address] [place] [phone] * (ABNORMAL) POCT Hgb A1c (01/13/2025 12:51 PM EST) Hemoglobin A1C 8.4(A) 4.0 - 5.7 % QC Media Lot # [id number] Lot# Expiration Date ,027 Blood 01/13/2025 12:5 1 PM EST Danis Solomon MD POINT OF CARE TEST EN TER/EDIT ORDERABLES Final Result * (ABNORMAL) POCT Glucose (01/13/2025 12:50 PM EST) Pathologist [facility] Glucose Blood, POC 233(A) 60 - 200 mg/dL QC Media Lot # [id number] Lot# Expiration Date 58,667 Blood Capillary blood specimen / Unknown 01/13/2025 12:50 PM EST us Danis Solomon MD POINT OF CARE TEST EN TER/EDIT ORDERABLES Final Result * XR Shoulder 2+ Views Left (12/12/2024 1:05 PM EDT) Anatomical Region Laterality Modality Upper Extremities, Shoulder Left Radi ographic Imaging 12/12/2024 1:05 PM EDT Narrative 12/12/2024 1:17 PM EDT [facility] [address] [place] [address] XRay Report Signed Patient: Sancho Loya MR#: [id number] : 1960 Acct:[id number] Age/Sex: 64 / M ADM Date: 12/12/24 Loc: HO.HHCX Attending Dr: Jacklyn Arthur MD Ordering Physician: Jacklyn Arthur MD Date of Service: 12/12/24 Procedure(s): XR shoulder LT min 2V Accession Number(s): [id number] cc: Danis Laurent MD; Jacklyn Arthur MD [...] MD 12/12/2024 01:14 PM EDT RP Workstation: [id number] Dictated By: Doug Durán MD Signed By: <Electronically signed by Doug Durán MD in OV> 12/12/24 1314 DD/ 1305 TD/TT: 12/12/24 1307 Scale Installer: Procedure Note Donotuseinterpreter, Image - 12/12/2024 [place] [address] XRay Report Signed Patient: Sancho Loya LMR#: [id number] : 9Acct:[id number] Age/Sex: 64 / MADM Date: 12/12/24 Loc: HO.HHCX Attending Dr: Jacklyn Arthur MD Ordering Physician: Jacklyn Arthur MD Date of Service: 12/12/24 Procedure(s): XR shoulder LT min 2V Accession Number(s): [id number] cc: Danis Laurent MD; Jacklyn Arthur MD [...] 12/12/24 1314 DD/ 1305 TD/TT: 12/12/24 1307 Scale Installer: us Jacklyn Arthur MD IMG XR PROCEDURES Final Resul t * US BLADDER (12/02/2024 11:17 AM EDT) Anatomical Region Laterality Modality Abdomen Ultrasound 12/02/2024 11:1 7 AM EDT Narrative 12/02/2024 11:18 AM EDT [address] [address] Ultrasound Report Signed Patient: Sancho Loya MR#: [id number] : 1960 Acct:[id number] Age/Sex: 64 / M ADM Date: 12/01/24 Loc: .US Attending Dr: Letty Hill MD Ordering Physician: Letty Hill MD Date of Service: 12/01/24 Procedure(s): US bladder Accession Number(s): [id number] cc: Letty Hill MD; Danis Laurent MD [...] OV> 12/02/24 1117 DD/ 1117 TD/TT: 12/02/247 Scale Installer: Procedure Note Donotuseinterpreter, Image - 12/02/[address] [address] Ultrasound Report Signed Patient: Sancho Loya LMR#: [id number] : 9Acct:[id number] Age/Sex: 64 / MADM Date: 12/01/24 Loc: .US Attending Dr: Letty Hill MD Ordering Physician: Letty Hill MD Date of Service: 12/01/24 Procedure(s): US bladder Accession Number(s): [id number] cc: Letty Hill MD; Danis Laurent MD [...] document has been electronically signed by: Elijah Bakns MD on 12/02/2024 11:17:32 Dictated By: Elijah Banks MD Signed By: <Electronically signed by Elijah Banks MD in OV> 12/02/24 1117 DD/ 1117 TD/TT: 12/02/24 1117 Scale Installer: us [facility] External Provider IMG US PROCEDURES Final Result * (ABNORMAL) CBC auto differential (11/27/2024 2:52 PM EDT) White Blood Count 13.1(H) 4.8 - 10.8 X10*3/uL [facility] Red Blood Count 5.16 4.60 - 5.80 X10*6/uL [facility] Hemoglobin 15.2 14.0 - 18.0 g/dl [facility] Hematocrit 46.2 42.0 - 52.0 % [facility] Mean Corpuscular Volume 89.5 80.0 - 98.0 fL [facility] Mean Corpuscular Hemoglobin 29.5 27.0 - 33.0 pg [facility] Mean Corpuscular HGB Conc 32.9 31.0 - 36.0 g/dl [facility] Red Cell Distribution Width 14.8 11.0 - 16.0 % [facility] Platelet Count 226 160 - 400 X10*3/uL [facility] Mean Platelet Volume 9.1(L) 9.4 - 12.4 fL [facility] Neutrophils Percent Auto 58.9 45 - 73 % [facility] Imm Gran Pct Auto 0.6(H) 0.0 - 0.4 % [facility] Lymphocytes Percent Auto 23.4 20 - 40 % [facility] Monocytes Percent Auto 9.7 2 - 11 % [facility] Eosinophils Percent Auto 6.6(H) 0 - 4 % [facility] Basophils Percent Auto 0.8 0 - 2 % [facility] NRBC Pct Auto 0.0 0.0 - 0.2 /100WBC [facility] Neutrophils Absolute Auto 7.7 2.0 - 8.3 x10*3/uL [facility] Imm Gran Abs Auto 0.08(H) 0.00 - 0.03 X10*3/uL [facility] Lymphocytes Absolute Auto 3.1 1.2 - 4.9 X10*3/uL [facility] Monocytes Absolute Auto 1.3(H) 0.1 - 1.2 X10*3/uL [facility] Eosinophils Absolute Auto 0.9(H) 0.0 - 0.4 X10*3/uL [facility] Basophils Absolute Auto 0.1 0.0 - 0.2 X10*3/uL [facility] NRBC Abs Auto 0.000 0.0 - 0.012 X10*3/uL [facility] 11/27/2024 2:52 PM EDT 11/27/2024 2:52 PM EDT us Generic External Data Provider LAB BLOOD ORDERAB LES Final Result [facility] [address] [place] [phone] * (ABNORMAL) Comprehensive Metabolic Panel (11/27/2024 2:52 PM EDT) Sodium 138 135 - 145 mmol/L [facility] Potassium 4.7 3.3 - 5.1 mmol/L [facility] Comment:Slight Hemolysis.Int erpret result with caution. Chloride 107 96 - 108 mmol/L [facility] Carbon Dioxide 23 22 - 29 mmol/L [facility] Anion Gap 13 12 - 20 [facility] Urea Nitrogen (BUN) 17(H) 9 - 16 mg/dL [facility] Creatinine, Serum 1.15 0.5 - 1.4 mg/dL [facility] Estimated Glomerular Filt Rate >60 [facility] Comment:Chronic Kidney Disea se: Estimated GFR < 60 mL/min/1.57q5Bfrpps Kidney Disease: Estimated GFR < 15 mL/min/1.73m2 Glucose 100 60 - 115 mg/dL [facility] Calcium 9.4 8.4 - 10.2 mg/dL [facility] Bilirubin, Total 0.2 0.0 - 1.0 mg/dL [facility] Aspartate Amino Transferase 28 5 - 37 U/L [facility] Comment:Slight Hemolysis.Int erpret result with caution. Alanine Aminotransferase 28 0 - 40 U/L [facility] Total Protein 8.4(H) 6.5 - 8.0 g/dL [facility] Albumin Level 4.4 3.5 - 5.0 g/dL [facility] Alkaline Phosphatase 69 39 - 117 U/L [facility] 11/27/2024 2:52 PM EDT 11/27/2024 2:52 PM EDT us Generic External Data Provider LAB BLOOD ORDERAB LES Final Result [facility] [address] [place] [phone] * Lipid Panel, Standard (09/12/2024 11:50 AM EDT) Triglycerides 111 <150 mg/dL [facility] Comment:Desirable Triglyceri de: less than 150 mg/dLBorderline High Triglyceride 150-199 mg/dLHigh Triglyceride: 200-499 mg/dLVery High Triglyceride: greater than or equal to 5OO mg/dL Cholesterol 120 <200 mg/dL [facility] Comment:Desirable Cholestero l: less than 200 mg/dLBorderline High Cholesterol: 200-239 mg/dLHigh Cholesterol: greater than 239 mg/dL LDL Cholesterol Calculated 55 <100 mg/dL [facility] Comment:Desirable LDL: less than 100 mg/dLNear Optimal/Above Optimal LDL: 110- 129 mg/dLBorderline High LDL: 130-159 mg/dLHigh LDL: 160-189 mg/dLVery High LDL: greater than or equal to 190 mg/dL HDL Cholesterol 43 >40 mg/dL [facility] Comment:Desirable HDL: great er than 40 mg/dL Note: This HDL assay may give artificially low results in patients with liver disease. Blood Venous blood specimen / Unknown 09/12/2024 11:50 AM EDT 09/12/2024 12:55 PM EDT us Danis Solomon MD LAB BLOOD ORDERABLES Final Result [facility] [address] [place] [phone] * Hepatitis C Antibody with Reflex to HCV, RNA, Quantitative, Real-Time PCR (06/19/2022 8:29 AM EDT) Hepatitis C Antibody NON-REACT JIMY NON-REACT JIMY [facility] [place] [facility] Index 0.10 <1.00 [facility] Comment: HCV antibody was non-reactive. There is no laboratory evidence of HCV infection. In most cases, no further action is required. However, if recent HCV exposure is suspected, a test for HCV RNA (test code 65145) is suggested. For additional information please refer to http://education.[employer]/faq/RUU76z3 (This link is being provided for informational/ educational purposes only.) Blood Venous blood specimen / Unknown 06/19/2022 8:29 AM EDT 06/19/2022 8:29 AM EDT Narrative [facility] - 06/19/2022 10:33 PM EDT FASTING:YES FASTING: YES Danis Solomon MD LAB BLOOD ORDERABLES Final Result [facility] [address], [place] [phone] [facility] [address] [place] [phone] * Colonoscopy (12/11/2019) Colonoscopy Normal Normal 12/11/2019 Jessica Montana - 12/11/2019 10:39 AM EDT Recommended 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 follow up due to history of tubular adenoma ( see scanned report )[facility] [place] Provider HEALTH MAINTENANCE Final Result from Last 3 Months or Most Recently Relevant to Health Maintenance Additional Health Concerns Active Problems Noted Date Diagnosed Date Help patients manage their type 2 diabetes 01/12 Patient has chronic kidney disease 01/12/2025 Patient has chronic kidney disease 01/12/2025 Insurance MEDICARE [facility] ST[facility] Care Teams Borough Coordinator Relationship Specialty Start Date End Date Danis Morales MD [address] [place] [phone] PCP - General Internal Medicine 11/24/13
--- OUTSIDE RECORDS SUMMARY | 2025-02-11 17:40 | XMS_ITS | Encounter Summary ---
Author Organization [employer] Address [address] [place] [address] Care Team Providers Care Signal Worker Name Role Phone Danis Morales MD Primary Care Provide r Encounter Details Date Type Department Care Team (Late st Contact Info) Description 04/13/2022 Orders Only [facility] [address] [place], [place] [phone] Pat Goldberg LPN Social History Tobacco Use [...] on filedocumented in this encounter Care Teams Signal Worker Relationship Specialty Start Date End Date Danis Morales MD [address] [place] [address] PCP - General Internal Medicine 11/24/13 documented as of this encounter
== END 2025-02-11 14:02 | disposition home or self-care (01) ==
LOC: HO.HKA 13:28
PROVIDERS: PCP Internal Medicine; Visit Provider Internal Medicine Nephrology
DX: I10 Essential (primary) hypertension (principal); N18.31 Chronic kidney disease, stage 3a
CPT/HCPCS: 99214

== ENCOUNTER → 2025-02-11 13:28 | Outpatient (BNVA) | payer OTHER, SELFPAY | PROVIDERS: PCP Internal Medicine; Visit Provider Internal Medicine Nephrology | DX: I12.9 Hypertensive chronic kidney disease with stage 1 through stage 4 chronic kidney disease, or unspecified chronic kidney disease (principal); N18.31 Chronic kidney disease, stage 3a; E11.22 Type 2 diabetes mellitus with diabetic chronic kidney disease; Z79.84 Long term (current) use of oral hypoglycemic drugs; Z87.891 Personal history of nicotine dependence | CPT/HCPCS: 99212 ==